=== PATIENT | female | born 1955 | race Caucasian/White ===

== ENCOUNTER → 2018-04-07 12:48 | Outpatient (CLI) | payer MEDICARE, MEDICAID, SELFPAY ==
[2018-04-07 13:32] LABS: Microalbumin,Random Urine 20.3 mg/L (NO RANGE EST.); Microalbumin:Creatinine Ratio 13.3 mg/g CRE (<30 mg/g CRE)
[2018-04-07 13:51] LABS: ALB/GLOB Ratio 1.1 RATIO (0.9-2.4); AST(SGOT) 34 U/L (15-37); Alanine Aminotransfer ALT/SGPT 48 U/L (13-56); Alkaline Phosphatase 53 U/L (45-117); Anion Gap 8 (5-15); BUN 17 mg/dL (7-18); BUN/Creat Ratio 19.9 RATIO (10-20); Calcium,Total 9.6 mg/dL (8.5-10.1); Chloride 104 mmol/L (98-107); Cholesterol 172 mg/dL (200); Creatinine, Serum 0.86 mg/dL (0.55-1.02); EST Glomerular Filtration Rate 71 mL/min (>60); Est Glom Filt Rate - Afr Amer 86 mL/min (>60); Globulin 3.8 g/dL (2.2-4.2); Glucose 132 mg/dL (74-106); High Density Lipoprotein 48 mg/dL; Protein, Total 7.8 g/dL (6.4-8.2); Sodium Level 139 mmol/L (136-145); Triglycerides 208 mg/dL; Very Low Density Lipoprotein 42 mg/dL (5-40)
== END ==
PROVIDERS: Family Provider Family Medicine; PCP Family Medicine; Visit Provider Nurse Practitioner
DX: E11.9 Type 2 diabetes mellitus without complications (principal)
CPT/HCPCS: 36415; 80053; 80061; 82043; 82570; 83036

== ENCOUNTER → 2018-07-07 13:52 | Outpatient (CLI) | payer MEDICARE, MEDICAID, SELFPAY ==
[2018-07-07 15:39] LABS: Hemoglobin A1c 7.1 % (4.2-6.3)
[2018-07-07 15:49] LABS: AST(SGOT) 38 U/L (15-37); Alanine Aminotransfer ALT/SGPT 53 U/L (13-56); Albumin, Serum 3.7 g/dL (3.2-5.0); Alkaline Phosphatase 70 U/L (45-117); Anion Gap 10 (5-15); BUN 18 mg/dL (7-18); BUN/Creat Ratio 19.8 RATIO (10-20); Calcium,Total 9.7 mg/dL (8.5-10.1); Chloride 103 mmol/L (98-107); Creatinine, Serum 0.91 mg/dL (0.55-1.02); EST Glomerular Filtration Rate 67 mL/min (>60); Est Glom Filt Rate - Afr Amer 81 mL/min (>60); Globulin 3.7 g/dL (2.2-4.2); Glucose 136 mg/dL (74-106); Potassium 3.9 mmol/L (3.5-5.1); Protein, Total 7.4 g/dL (6.4-8.2); Sodium Level 141 mmol/L (136-145)
== END ==
PROVIDERS: Family Provider Family Medicine; PCP Family Medicine; Visit Provider Nurse Practitioner
DX: M32.9 Systemic lupus erythematosus, unspecified (principal); E11.9 Type 2 diabetes mellitus without complications
CPT/HCPCS: 36415; 80053; 83036; 84443

== ENCOUNTER → 2018-11-17 14:05 | Outpatient (CLI) | payer MEDICARE, MEDICAID, SELFPAY ==
[2018-11-17 13:16] VITALS: BMI 56.5
[2018-11-17 16:09] LABS: Hemoglobin A1c 8.1 % (4.2-6.3)
[2018-11-17 16:11] LABS: AST(SGOT) 45 U/L (15-37); Alanine Aminotransfer ALT/SGPT 57 U/L (13-56); Albumin, Serum 3.6 g/dL (3.2-5.0); Alkaline Phosphatase 61 U/L (45-117); Anion Gap 10 (5-15); BUN 26 mg/dL (7-18); BUN/Creat Ratio 24.5 RATIO (10-20); Calcium,Total 9.6 mg/dL (8.5-10.1); Chloride 106 mmol/L (98-107); Creatinine, Serum 1.06 mg/dL (0.55-1.02); EST Glomerular Filtration Rate 56 mL/min (>60); Est Glom Filt Rate - Afr Amer 67 mL/min (>60); Globulin 3.7 g/dL (2.2-4.2); Glucose 134 mg/dL (74-106); Potassium 4.1 mmol/L (3.5-5.1); Protein, Total 7.3 g/dL (6.4-8.2); Sodium Level 143 mmol/L (136-145)
== END ==
PROVIDERS: Family Provider Family Medicine; PCP Family Medicine; Referring Provider Nurse Practitioner; Visit Provider Nurse Practitioner
DX: E11.9 Type 2 diabetes mellitus without complications (principal)
CPT/HCPCS: 36415; 80053; 83036

== ENCOUNTER 2019-07-11 10:34 | Day surgery (SDC) | payer MEDICARE, MEDICAID, SELFPAY ==
[2018-11-17 13:16] VITALS: BMI 56.5
--- NOTE | 2019-07-09 17:05 | PCM.HP.BLA ---
History and Physical Date of Admission: 07/11/19 HISTORY AND PHYSICAL ? Laura Morocho 1955 ? REFERRING PHYSICIAN: ??Valentin Arredondo, * ? CHIEF COMPLAINT: ??Consult (Consult Colonoscopy) ? HPI: The patient is a 63 year old female referred for endoscopy. ?Laura notes a history of colon polyps.??Most recent colonoscopy along with EGD done by Dr. Dallas in 2016 under [facility] at [facility]. ?She had polyps which were removed at that time, pathology showed adenomatous and hyperplastic colon polyps and 3 year follow-up was recommended. ?Patient denies any change in bowel habits, weight changes, blood in stools, black tarry stools or abdominal pain.??Denies?family history of colon issues. ? Patient notes a recent history of chest discomfort x a few weeks, states has wondered if this is reflux or fibromyalgia. ?She was evaluated by her family physician earlier today and states was told this pain may be medication-related. ?She has not had a recent EKG. ? ? Past medical history significant for diabetes mellitus, fibromyalgia, hypercholesterolemia, lupus, degenerative disc disease. ?Patient follows with Dr. Arredondo for her chronic medical conditions. ? ? ? PAST?MEDICAL?HISTORY PAST MEDICAL HISTORY Diagnosis Date ? Degenerative disc disease, lumbar ? ? Diabetes (HCC) ? ? Fibromyalgia ? ? GERD (gastroesophageal reflux disease) ? ? Hypercholesterolemia ? ? Insomnia ? ? Lupus (HCC) ? ? Osteoarthritis ? ? ? PAST?SURGICAL?HISTORY PAST SURGICAL HISTORY Procedure Laterality Date ? APPENDECTOMY ? ? ? COLONOSCOP W/ OR W/O BRSH SPEC ? 04/30/2016 ? Colonoscopy ? COLONOSCOPY ? 12/24/10 ? TVA ? COLONOSCOPY ? 02/22/13 ? no polyps ? EGD W/O OR W/BRUSH/WASH ? 04/30/2016 ? EGD ? LIGATE FALLOPIAN TUBE ? ? ? Tubal ligation ? PAST SURGICAL HISTORY OF ? ? ? colon polypectomy ? PAST SURGICAL HISTORY OF ? ? ? hernia repair ? REMOVAL ADENOIDS,PRIMARY,<12 Y/O ? ? ? Adenoidectomy ? REMOVAL GALLBLADDER ? ? ? Cholecystectomy ? REMOVAL OF TONSILS,<12 Y/O ? ? ? Tonsillectomy ? TOTAL ABDOM HYSTERECTOMY ? ? ? Hysterectomy, JESSICA supracervical ? ? CURRENT?MEDICATIONS ? Current Outpatient Medications: triamterene-hydrochlorothiazide (MAXZIDE-25) 37.5-25 mg per tablet TAKE 1 TABLET DAILY lisinopril (ZESTRIL, PRINIVIL) 5 mg tablet Take 5 mg by mouth once daily. PRAVASTATIN SODIUM (PRAVASTATIN ORAL) Take ?by mouth. aspirin, enteric coated (ASPIRIN LOW DOSE) 81 mg EC tablet Take 81 mg by mouth once daily. Cholecalciferol, Vitamin D3, (VITAMIN D) 1,000 unit cap Take 1,000 Units by mouth once daily. baclofen (LIORESAL) 10 mg tablet ? Omeprazole Magnesium 20 mg tablet Take 20 mg by mouth twice daily. Diclofenac Sodium (VOLTAREN) 1 % gel Apply 1 g to affected area twice daily. hydroxychloroquine (PLAQUENIL) 200 mg tablet Take ?by mouth twice daily. zolpidem (AMBIEN) 10 mg tab Take ?by mouth at bedtime as needed. OMEGA-3 FATTY ACIDS/FISH OIL (OMEGA 3 FISH OIL ORAL) Take ?by mouth. fenofibrate nanocrystallized (TRICOR) 145 mg tablet Take 145 mg by mouth once daily. NEFAZODONE 200 MG TAB take one twice a day MULTIVITAMIN TAB Take one(1) tablet daily. oxymetazoline (AFRIN, OXYMETAZOLINE,) 0.05 % nasal spray Use 2 Sprays in the nose twice daily. guaiFENesin (MUCINEX) 600 mg 12 hr tablet Take 2 tablets by mouth twice daily. benzonatate (TESSALON PERLE) 100 mg capsule Take 1 capsule by mouth three times daily as needed. albuterol HFA (PROVENTIL HFA, VENTOLIN HFA) 90 mcg/actuation inhaler Inhale 2 Puffs as instructed every 4 hours as needed. fluticasone (FLOVENT HFA) 110 mcg/actuation inhaler Inhale 2 Puffs as instructed twice daily. glimepiride (AMARYL) 1 mg tablet Take 1 mg by mouth daily with breakfast. Taking 1.5 tablets a day sitaGLIPtin (JANUVIA) 100 mg tablet Take 100 mg by mouth once daily. hydrocortisone (ANUSOL-HC) 2.5 % rectal cream by RECTAL route twice daily. celecoxib (CELEBREX) 200 mg capsule Take 200 mg by mouth as needed. metFORMIN 1,000 mg tablet Take 1,000 mg by mouth twice daily with meals. triamterene-hydrochlorothiazide 37.5-25 mg per capsule Take 1 capsule by mouth once daily. ? No current facility-administered medications for this visit.? ? ALLERGIES:?Ciprofloxacin; Januvia [Sitagliptin]; Jardiance [Empagliflozin]; Macrodantin [Nitrofurantoin]; Ultram [Tramadol Hcl] ? PERSONAL HISTORY:? 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 control/protection: Surgical ?Comment: pt has had JESSICA ??Other Topics ?Concerns: ?Not on file ??Social History Narrative ?Not on file ? FAMILY HISTORY:? FAMILY?HISTORY FAMILY HISTORY Problem Relation Age of Onset ? Heart Mother ? ? Diabetes Mother ? ? COPD Mother ? ? other (lupus) Mother ? ? other (rheumatoid) Mother ? ? Heart Sister ?NE at age 41 ? Diabetes Sister ? ? Aneurysm Sister ?Abdominal ? other (aortic stenosis) Sister ? ? other (spesis) Sister ? ? REVIEW OF SYMPTOMS: ??The review of systems data was entered by the nurse and reviewed by me ? Nursing Notes: Carson Spivey LPN ?05/04/2019 ?1:09 PM ?Signed REVIEW OF SYSTEMS: ?General:???The patient NOTES fatigue, denies weight loss, denies weight gain, NOTES feeling hot, and denies feelings of cold. ?Eyes: ?The patient denies glaucoma, denies eye injury/surgery, wears glasses or contacts. ?Ear/Nose/Throat: ?The patient NOTES allergies, denies hayfever, denies ear infections, and denies bloody noses. ?Cardiovascular: ?The patient NOTES chest pain, denies heart disease, NOTES high blood pressure,denies cardiac stent, denies prior heart attack, denies irregular heart beat, NOTES high cholesterol, ?denies poor circulation, denies heart failure, other cardiac issues, denies claudication, denies cold feet, denies peripheral arterial stent. ?Respiratory: ?The patient denies tuberculosis, denies pneumonia, denies frequent cough, denies pulmonary embolism, NOTES shortness of breath, and denies coughing up blood. ?Gastrointestinal: ?The patient denies difficulty swallowing, NOTES acid reflux, NOTES ulcers, denies vomiting, denies jaundice/hepatitis, NOTES gallbladder problems, denies black or tarry stools, NOTES hemorrhoids, denies bleeding from rectum, denies diverticulitis, denies constipation, denies diarrhea, denies loss of stool control, and NOTES hernias. ?Kidney/Bladder: ?The patient denies kidney stones, denies urine infections, and denies bloody urine. ?Skin: ?The patient denies a history of skin cancer, denies bleeding/changing moles, and denies a history of skin rash. ?Neurologic: ?The patient denies a history of epilepsy/convulsions, denies headaches, denies head/spinal injuries, and denies stroke/TIA. ?Psychiatric: ?The patient denies psychiatric medications, denies depression, and denies voices, denies substance abuse. ?Endocrine: ?The patient denies thyroid disorders, NOTES diabetes, and denies hormonal problems. ?Hematologic: ?The patient NOTES a history of bruising, denies bleeding, and denies anemia, denies blood clots. ?Infections: ?The patient denies a history of measles and mumps, denies rheumatic fever, and denies sexually transmitted diseases. ?Musculoskeletal: ?The patient NOTES back pain/injury, NOTES back problems, NOTES sciatica, NOTES knee/foot trouble, NOTES arthritis, or denies gout. ? ? When was patient's last Mammogram screening? N/A ? ?Last Colonoscopy: ?05/03 ? ? Carson Spivey LPN? I have confirmed and edited as necessary, the PFSH and ROS obtained by others. ? ? PHYSICAL EXAMINATION: ? General: ?The patient is 63 year old female, well nourished, well hydrated in no acute distress. ?The patient is oriented to time, place, and person. ? VITALS:?Blood pressure 146/68, pulse 70, temperature 36.4 ?C (97.6 ?F), height 165.1 cm (5' 5), weight (!) 141.3 kg (311 lb 9.6 oz), last menstrual period 11/09/2005, SpO2 96 %.?Body mass index is 51.85 kg/m?.? ? HEENT: ?Normal cephalic, ataumatic, pupils are equally round, sclera are anicteric, mucous membranes are moist, oropharynx is clear. ?Neck has no masses, asymmetry or lymphadenopathy. ? ? Respiratory: ?Clear to auscultation and percussion. ?Normal respiratory excursion and pattern. ? Cardiac: ?Examination is regular rate and rhythm. ?Normal S1/S2 ? Abdominal exam: ?Soft, nontender, ?with no palpable masses. ?No hepatosplenomegaly. ?No palpable hernias. ? Extremities: ?no clubbing, cyanosis or edema. ?No adenopathy. ? LABORATORY VALUES: As Noted ? RADIOLOGIC STUDIES: ?As Noted ? ? Assessment ? IMPRESSION:?encounter for screening colonoscopy. ?Heartburn and complaints of recent chest pain-EKG done in office showed normal sinus rhythm ? PLAN: ?I have reviewed my findings with Dr. Spann, who also independently evaluated the patient and participated in development of the following plan.???Will plan for upper and lower?endoscopy. ??We discussed the risks and benefits of the planned endoscopy. ?I have informed the patient that complications can occur including failure to complete the endoscopy and perforation. ?The patient had the opportunity to ask questions concerning the planned endoscopy. ?My staff has also explained the procedure to the patient in understandable terms and has given the patient printed material concerning the procedure. ?The patient freely consents to surgery. ? I plan to use?golytely?bowel preparation ? Patient instructed to contact PCP for instructions regarding diabetic medication, which may require adjustment during bowel preparation and/or day of procedure ? ? We will plan for Monitored Anesthetic Care. ? ? Diagnoses:?(Z12.11) Encounter for screening for malignant neoplasm of colon ?(primary encounter diagnosis) (Z01.818) Preop testing (Z87.898) History of chest pain (Z86.010) History of colonic polyps (K21.9) Gastroesophageal reflux disease, esophagitis presence not specified ? ? Isaura Atkinson PA-C
[2019-07-11] VITALS (7 sets, daily range): BP systolic 113–169; BP diastolic 54–78; PULSE 64–69; RESP 16; TEMP 36.1–36.7; O2SAT 93–96; BMI 51.0
--- NOTE | 2019-07-11 | GASB_PTH ---
PATIENT: VILMA DIAL I LOC: EN U#:[id number] AGE/SX: 63/F ROOM: RE07/11/[address]: Dr. Nikunj Spann MD : 1955 BED: DIS: 07/11/2019 SPEC #: [id number] RECD: 07/11/19 14:22 STATUS: YONATAN DORA #: [id number] PIPPA: 07/11/19 00:[address]: Nikunj Spann DEPT: SURGICAL PATHOLOGY RECD BY: Chase Young ENTERED: 07/11/19 14:22 SP TYPE: Gastric Bx OTHR DR: Dr. Valentin Arredondo MD Tissues: A - Gastric mucous membrane B - Gastric mucous membrane C - Esophagus, NOS Procedures: Surgery Specimen Level IV HEADER OPERATION: [place]OP DIAGNOSIS: Epigastric pain; history polyps TISSUE SUBMITTED: A - Antral biopsy for H. pylori and pathology, B - GE junction biopsy, C - Mid esophageal biopsy MICROSCOPIC DIAGNOSIS A. Gastric antrum, biopsy: Mild chronic gastritis. See comment. B. Gastroesophageal junction, biopsy: Mild chronic inflammation. No evidence of goblet cell metaplasia. C. Mid esophagus, biopsy: Fragment of benign squamous mucosa. No evidence of inflammation. AM:augustine 07/12/19 COMMENT A. The results of immunohistochemistry for Helicobacter pylori will be reported separately ([id number]). B. Alcian blue/PAS stain with matched control supports the above diagnosis. MICROSCOPIC DESCRIPTION Slides are reviewed. GROSS DESCRIPTION A - Received in fixative is one container labeled with the patient's name and designated antrum biopsy. The specimen consists of one irregular fragment of light griffin soft tissue that measures 0.3 x 0.3 x 0.1 cm. The specimen is totally submitted in one cassette. B - Received in fixative is one container labeled with the patient's name and designated GE junction biopsy. The specimen consists of one irregular fragment of light griffin soft tissue that measures 0.3 x 0.3 x 0.1 cm. The specimen is totally submitted in one cassette. C - Received in fixative is one container labeled with the patient's name and designated mid esophageal biopsy. The specimen consists of one irregular fragment of light griffin soft tissue that measures 0.4 x 0.3 x 0.1 cm. The specimen is totally submitted in one cassette. / SJ:rg 07/11/19 TC:3 CPT: 23990 x3, 94150
[2019-07-11] MEDS: Lactated Ringers 1,000 ML 100 ML IV (11:40)
--- NOTE | 2019-07-11 12:00 | IMM_PTH ---
PATIENT: VILMA DIAL I LOC: EN U#:[id number] AGE/SX: 63/F ROOM: RE07/11/[address]: Dr. Nikunj Spann MD : 1955 BED: DIS: 07/11/2019 SPEC #: [id number] RECD: 07/11/19 15:00 STATUS: YONATAN RELucien #: [id number] PIPPA: 07/11/19 12:[address]: Nikunj Spann DEPT: IMMUNOHISTOCHEMISTRY RECD BY: Mary Villatoro ENTERED: 07/11/19 15:00 SP TYPE: IMMUNO OTHR DR: Dr. Valentin Arredondo MD Tissues: A - Stomach, NOS Procedures: H Pylori (initial) PHYSICIAN & INSTITUTION [place] [id number] SPECIMEN INFORMATION: Tissue Source: A - Antral biopsy Clinical Info: Epigastric pain, history polyps Specimen Number: [id number] CPT code: 38222 METHODOLOGY: Deparaffinized sections of prefer/formalin-fixed tissue or PAP/DQ stained slides are incubated with monoclonal/polyclonal antibodies/oligonucleotide probes. Localization is made via biotin free immunoperoxidase method. Appropriate controls are performed and reacted as expected. Results on target cell population are indicated in the following table: RESULTS: ANTIBODY / CLONE RESULT Block A H Pylori (polyclonal) negative These tests were developed and their performance characteristics determined by [facility]. They may not have been cleared or approved by the U.S. Food and Drug Administration. The FDA has determined that such clearance or approval is not necessary. INTERPRETATION: A. Antral biopsy: Negative for Helicobacter pylori organisms. AM:augustine 07/12/19
--- NOTE | 2019-07-11 13:41 | OP.ENDO_ITS ---
07/11/2019 Valentin Arredondo Re : Upper GI endoscopy procedure for Laura Morocho Dear Arnulfo This procedure was performed on Thursday, July 11, 2019. My impressions and recommendations are as follows: Impressions : - Normal examined jejunum. - Normal examined duodenum. - Normal stomach. Biopsied. - Normal gastroesophageal junction. - Non-severe reflux esophagitis. Biopsied. - Normal middle third of esophagus. Recommendations : - Discharge patient to home. - Resume previous diet. - Continue present medications. - Return to physician assistant manager pt in 1 week. My findings are described in the full procedure note, which is enclosed. If I can be of further assistance, please feel free to contact me at Doctor phone number(s): , Work: . Sincerely, Nikunj Spann MD 07/11/2019 1:41:10 PM This report has been signed electronically.
--- NOTE | 2019-07-11 13:46 | OP.ENDO_ITS ---
07/11/2019 Valentin Arredondo Re : Colonoscopy procedure for Laura Morocho Dear Arnulfo This procedure was performed on Thursday, July 11, 2019. My impressions and recommendations are as follows: Impressions : - The entire examined colon is normal on direct and retroflexion views. - Diverticulosis in the sigmoid colon. - No specimens collected. Recommendations : - Discharge patient to home. - Resume previous diet. - Continue present medications. - Repeat colonoscopy in 10 years for screening purposes. - Return to physician bilingual legal assistant in 1 week. My findings are described in the full procedure note, which is enclosed. If I can be of further assistance, please feel free to contact me at Doctor phone number(s): , Work: . Sincerely, Nikunj Spann MD 07/11/2019 1:45:55 PM This report has been signed electronically.
== END 2019-07-11 14:33 | disposition home or self-care (01) ==
LOC: EN 10:34 → AC 10:36
PROVIDERS: Family Provider Family Medicine; PCP Family Medicine; Referring Provider Family Medicine; Visit Provider Surgery
PROC: 0DJD8ZZ Inspection of Lower Intestinal Tract, Via Natural or Artificial Opening Endoscopic (ICD-10-PCS; CPT 45378; principal; 2019-07-11 11:55)
DX: Z12.11 Encounter for screening for malignant neoplasm of colon (principal); Z86.010 Personal history of colon polyps; K57.30 Diverticulosis of large intestine without perforation or abscess without bleeding; K21.0 Gastro-esophageal reflux disease with esophagitis; M32.9 Systemic lupus erythematosus, unspecified; K58.9 Irritable bowel syndrome, unspecified; E11.9 Type 2 diabetes mellitus without complications; E78.00 Pure hypercholesterolemia, unspecified; M79.7 Fibromyalgia; G47.30 Sleep apnea, unspecified; F32.9 Major depressive disorder, single episode, unspecified; F41.9 Anxiety disorder, unspecified; M51.36 Other intervertebral disc degeneration, lumbar region; G47.00 Insomnia, unspecified; Z79.82 Long term (current) use of aspirin; Z79.84 Long term (current) use of oral hypoglycemic drugs; Z79.51 Long term (current) use of inhaled steroids; Z79.899 Other long term (current) drug therapy; Z88.1 Allergy status to other antibiotic agents; Z78.0 Asymptomatic menopausal state; Z86.718 Personal history of other venous thrombosis and embolism
CPT/HCPCS: 43239; G0105; 88305; 88342; J7120; J2405

== ENCOUNTER → 2021-03-21 12:15 | Outpatient (CLI) | payer MEDICARE, SELFPAY ==
[2021-01-29 15:42] VITALS: BMI 52.4
--- NOTE | 2021-03-21 12:20 | BD_ITS ---
STUDY: DUAL ENERGY X-RAY ABSORPTIOMETRY / DXA REASON FOR EXAM: Female, 65 years old. Z780. The patient is postmenopausal. TECHNIQUE: Bone Mineral Density (BMD) measurements of lumbar spine and bilateral hips were obtained. COMPARISON: None. FINDINGS: Lumbar Spine (L1-L4): g/cm2 (1.308) / T-score (1.2) / Z-score (2.7) Findings are suggestive of normal bone density with a low fracture risk. Left Femur Total: g/cm2 (1.139) / T-score (1.0) / Z-score (2.3) Left Femoral Neck: g/cm2 (1.120) / T-score (0.6) / Z-score (2.1) Right Femur Total: g/cm2 (1.129) / T-score (1.0) / Z-score (2.2) Right Femoral Neck: g/cm2 (1.134) / T-score (0.7) / Z-score (2.2) BD/Dexa Bone Density Study IMPRESSION: The patient is considered normal as outlined below according to World [employer] Organization (WHO) criteria with a low fracture risk. Reference Information: The T-score is the number of standard deviations above or below the standard which is normal for young adults at their peak bone mineral density. The World Health Organization (WHO) interprets the T-scores as follows: Above -1 Normal bone density Between -1 and -2.5 Osteopenia Equal to / or below -2.5 Osteoporosis As a practical clinical guideline, osteopenia may be graded as follows: Mild -1 through -1.5 Moderate -1.6 through -2.0 Severe -2.1 through -2.4 The Z-score is the number of standard deviations above or below age-matched controls. A Z-score of less than -1.5 would be considered abnormal. References: 1. NIH Osteoporosis and Related Bone Diseases www osteo.org 2. International Society for Clinical Densitometry www iscd.org 3. National Osteoporosis Foundation www nof.org Electronically Signed: Zeyad Neri MD at 10:55 EDT , Service support ,
== END ==
PROVIDERS: PCP Family Medicine; Referring Provider Family Medicine; Visit Provider Family Medicine
DX: Z78.0 Asymptomatic menopausal state (principal)
CPT/HCPCS: 77080

== ENCOUNTER → 2021-04-09 13:43 | Outpatient (CLI) | payer MEDICARE, SELFPAY ==
[2021-01-29 15:42] VITALS: BMI 52.4
[2021-04-09 14:56] LABS: Erythrocyte Sedimentation Rate 18 mm/hr (0-30)
[2021-04-09 14:57] LABS: Absolute Lymphocyte Count 2.15 X10^3/uL (0.83-4.51); Absolute Neutrophil Count 4.5 X10^3/uL (2.0-7.7); Basophil# 0.05 X10^3/uL; Basophil% 0.7 % (0-1); Eosinophil# 0.25 X10^3/uL; Eosinophils% 3.3 % (0-5); Hematocrit 44.8 % (37-47); Hemoglobin 14.2 g/dL (12.0-15.0); Lymphocyte # 2.15 X10^3/ul (0.83-4.51); Lymphocyte % 28.5 % (19-41); Mean Corp Hgb Conc 31.7 g/dL (32-36); Mean Corpuscular Hgb 28.2 pg (27.0-32.0); Mean Corpuscular Volume 88.9 fL (81-99); Mean Platelet Vol. 10.8 fl (6.2-12.0); NRBC Flagged by Analyzer 0 % (0-5); Neutrophil # 4.45 X10^3/uL (2.7-7.7); Platelet Count 271 K/mm3 (150-450); RBC Distribution Width CV 14.2 % (11.6-14.6); RBC Distribution Width SD 45.8 fl (35.1-43.9); Red Blood Count 5.04 M/mm3 (4.2-5.4); White Blood Count 7.5 K/mm3 (4.4-11.0)
[2021-04-09 15:09] LABS: AST(SGOT) 37 U/L (15-37); Alanine Aminotransfer ALT/SGPT 53 U/L (13-56); BUN 33 mg/dL (7-18); CRP 3.73 mg/L (0.0-3.0); Creatinine, Serum 0.95 mg/dL (0.55-1.02); EST Glomerular Filtration Rate 63 mL/min (>60); Est Glom Filt Rate - Afr Amer 76 mL/min (>60)
[2021-04-11 14:21] LABS: Complement C3 180 mg/dL (82-167)
[2021-04-11 19:45] LABS: Anti-dsDNA Ab <1 IU/mL (0-9)
== END ==
PROVIDERS: PCP Family Medicine; Referring Provider Internal Medicine; Visit Provider Internal Medicine
DX: M32.19 Other organ or system involvement in systemic lupus erythematosus (principal)
CPT/HCPCS: 36415; 82565; 84450; 84460; 84520; 85025; 85652; 86140; 86160; 86225

== ENCOUNTER 2021-06-24 18:06 | Emergency (ER) | payer MEDICARE, SELFPAY ==
[2021-06-24 18:08] VITALS: BP 177/75; PULSE 87; RESP 22; TEMP 36.6; O2SAT 93; BMI 51.7
--- NOTE | 2021-06-24 19:22 | EX.ED.DYSGE1 ---
HPI History of Present Illness Chief Complaint: General Illness Informant: patient Narrative Narrative: 65-year-old female presents the emergency room with COVID-19. Patient got sick 14 June. She tested + 18 June. Patient is concerned because she is not getting any better. She notes continued diarrhea cough fever fatigue. She notes a history of diabetes lupus. She does not take daily steroids. She has did not get any monoclonal antibody infusion. [facility] Medical History (Updated 06/24/21 @ 19:[address] Colton Fry, DO) Anxiety and depression Arthritis Breast lump Diabetes Diabetes type 2, controlled Fibromyalgia Gallstones GERD (gastroesophageal reflux disease) High cholesterol High triglycerides IBS (irritable bowel syndrome) Lupus Obesity Osteoarthritis Pancreatitis Pneumonia Polycystic ovary Seasonal allergies Stomach ulcer Home Medications fenofibrate nanocrystallized 145 mg PO DAILY 03/20/14 [History Last Taken Unknown] hydroxychloroquine 200 mg PO BID 03/20/14 [History Last Taken Unknown] zolpidem 10 mg PO QHS PRN PRN 03/20/14 [History Last Taken Unknown] aspirin 81 mg PO DAILY 04/23/16 [History Last Taken Unknown] baclofen 10 mg PO TID PRN 04/23/16 [History Last Taken Unknown] celecoxib 200 mg capsule 200 mg PO QDAY PRN 11/10/17 [History Last Taken Unknown] omeprazole magnesium 20 mg tablet,delayed release 20 mg PO BID 11/10/17 [History Last Taken Unknown] pravastatin 40 mg tablet 40 mg PO QHS 11/10/17 [History Last Taken Unknown] metformin 500 mg tablet,extended release 24 hr 1,000 mg PO BID #360 tab 12/06/18 [Rx Last Taken Unknown] cholecalciferol (vitamin D3) 2,000 unit PO DAILY 07/07/19 [History Last Taken Unknown] fish oil-dha-epa 1 ea PO DAILY 07/07/19 [History Last Taken Unknown] hydrochlorothiazide 25 mg PO DAILY 07/07/19 [History Last Taken Unknown] multivitamin with minerals 1 ea PO DAILY 07/07/19 [History Last Taken Unknown] nefazodone 200 mg PO BID 07/07/19 [History Last Taken Unknown] diclofenac sodium 1 % topical gel 2 gm TOPICAL BID gm 01/29/21 [History Last Taken Unknown] glimepiride 2 mg tablet 2 mg PO BID tablet 04/13/21 [History Last Taken Unknown] losartan 25 mg tablet 25 mg PO DAILY #30 tab 03/13/21 [Rx Last Taken Unknown] dapagliflozin [Farxiga] 10 mg PO DAILY 06/24/21 [History Last Taken Unknown] dexamethasone 6 mg PO DAILY #5 tab 06/24/21 [Rx Last Taken Unknown] ondansetron 4 mg PO Q6H PRN PRN #15 tab 06/24/21 [Rx Last Taken Unknown] Allergy/AdvReac Type Severity Reaction Status Date / Time nitrofurantoin Allergy Unknown Verified 07/11/19 11:02 macrocrystalline [From Macrodantin] tramadol HCl [From Ultram] Allergy Swelling Verified 07/11/19 11:02 lisinopril AdvReac Intermediate muscle Verified 01/29/21 15:25 spasms semaglutide [From Ozempic] AdvReac Intermediate constipated Verified 01/29/21 15:26 ciprofloxacin [From Cipro] AdvReac RED URINE Verified 07/11/19 11:02 ciprofloxacin HCl AdvReac RED URINE Verified 07/11/19 11:02 [From Cipro] empagliflozin AdvReac stomach Verified 07/11/19 11:02 [From Jardiance] pain glimepiride AdvReac stomach Verified 07/11/19 11:02 pain Family History Mother Arthritis Diabetes Heart disease Hypertension High cholesterol Thyroid disorder Lupus Father Liver disease Other Alcohol abuse Anemia Anxiety Asthma Autoimmune disease CVA (cerebral vascular accident) Colon cancer Depression Melanoma Mental disorder Myocardial infarction Psychiatric care Respiratory disease Skin cancer angina ulcer disease Surgical History H/O breast biopsy H/O hernia repair H/O: hysterectomy Hx of appendectomy Hx of cholecystectomy Hx of tonsillectomy Social History Smoking Status: Never smoker second hand exposure: No alcohol intake: never substance use type: does not use ROS ROS ED Constitutional Constitutional ED: Reports chills, fever(s) and sweats; Denies weight loss Eyes Eyes: Denies change in vision or diplopia ENT ENT ED: Reports rhinorrhea and sore throat; Denies ear pain Cardiovascular Cardiovascular: Denies chest pain, orthopnea, palpitations or racing heartbeat Respiratory/Chest Respiratory/Chest: Reports cough and dyspnea; Denies orthopnea Gastrointestinal Gastrointestinal: Reports diarrhea and nausea; Denies abdominal pain or vomiting Genitourinary Genitourinary ED: Denies dysuria, hematuria or urinary frequency Musculoskeletal Musculoskeletal: Denies arthralgias or myalgias Integumentary Denies abscess or rash Neurologic Neurologic: Reports headache(s); Denies weakness Psychiatric Psychiatric: Denies anxiety, depression, suicidal ideation or suicidal thoughts Endocrine Endocrinology: Denies polydipsia, polyphagia or polyuria Allergic/Immunologic Allergic/Immunologic ED: Denies mouth swelling, tongue swelling or urticaria EXAM Physical Exam Const Vital Signs: 06/24/21 18:08 06/24/21 18:49 Temperature 97.8 F Temperature Source Temporal Pulse Rate 87 Respiratory Rate 22 H Respiratory Effort Normal Non-Labored Blood Pressure 177/75 H Blood Pressure Mean 109 Pulse Ox 93 Oxygen Delivery Method Room Air Positive well nourished, well developed and obese General Appearance ED: well developed Nutritional Appearance: obese HEENT Reports normocephalic, head/scalp atraumatic, TM's clear and moist mucous membranes Tympanic Membrane ED: Yes TM's clear Eyes PERRL and EOMs intact bilaterally Neck no lymphadenopathy, supple and no JVD Resp normal respiratory effort and clear to auscultation bilaterally Cardio regular rate, regular rhythm and no murmurs GI normal to inspection, nondistended, normoactive bowel sounds and non-tender Palpation: soft Back/Spine no CVA tenderness and normal ROM Extremity normal to inspection General Extremety ED: Negative for edema General Extremity: Negative for edema Neuro oriented x3 and CN's II-XII intact bilaterally Sensorium / Orientation: alert Motor Exam: strength 5/5 throughout Psych mental status grossly normal Mood & Affect: Negative for depressed or tearful Skin no rashes or lesions noted and no wounds MDM MDM MDM Narrative Medical decision making narrative: I discussed with the patient that COVID-19 is a prolonged illness. I can write for some Zofran. She may benefit from a brief course of some dexamethasone. At this point she is not requiring any supplemental oxygen. Discharge Plan Triage Chief Complaint: General Illness ED Provider: Colton Fry Dx/Rx/DC Orders Clinical Impression: COVID-19 Instructions: Coronavirus Disease 2019 (COVID-19): Caring for Yourself or Others Prescriptions: New dexamethasone 6 MG tablet 6 mg PO DAILY Qty: 5 RF: 0 ondansetron [ondansetron] 4 MG tablet 4 mg PO Q6H PRN PRN (Reason: Nausea) Qty: 15 RF: 0 No Action pravastatin [Pravachol] 40 mg tablet 40 mg PO QHS RF: 0 omeprazole magnesium [Prilosec OTC] 20 mg tablet,delayed release (DR/EC) 20 mg PO BID RF: 0 celecoxib [Celebrex] 200 mg capsule 200 mg PO QDAY PRN (Reason: Pain) RF: 0 diclofenac sodium 1 % gel 2 gm TOPICAL BID RF: 0 glimepiride 2 mg tablet 2 mg PO BID RF: 0 hydroxychloroquine 200 MG tablet 200 mg PO BID RF: 0 zolpidem 10 MG tablet 10 mg PO QHS PRN PRN (Reason: Sleep) RF: 0 fenofibrate nanocrystallized 145 MG tablet 145 mg PO DAILY RF: 0 baclofen 10 MG tablet 10 mg PO TID PRN (Reason: Spasms) RF: 0 aspirin 81 MG tablet,chewable 81 mg PO DAILY RF: 0 hydrochlorothiazide 25 MG tablet 25 mg PO DAILY RF: 0 nefazodone 50 MG tablet 200 mg PO BID RF: 0 multivitamin with minerals 1 EACH tablet 1 ea PO DAILY RF: 0 fish oil-dha-epa 1 EACH capsule 1 ea PO DAILY RF: 0 cholecalciferol (vitamin D3) 2,000 UNIT tablet,chewable 2,000 unit PO DAILY RF: 0 Farxiga 10 mg Tablet 10 mg PO DAILY RF: 0 metformin [Glucophage XR] 500 mg tablet extended release 24 hr 1,000 mg PO BID Qty: 360 RF: 3 losartan 25 mg tablet 25 mg PO DAILY Qty: 30 RF: 3 Primary Care Provider: Valentin Arredondo Referrals: Valentin Arredondo MD [Primary Care Provider] - As Needed Disposition Disposition: Home, Self Care
[2021-06-24 19:55] VITALS: BP 133/59; PULSE 65; RESP 20; O2SAT 94
== END 2021-06-24 19:56 | disposition home or self-care (01) ==
PROVIDERS: Emergency Provider Emergency Medicine; PCP Family Medicine
DX: U07.1 COVID-19 (principal); E66.9 Obesity, unspecified; F32.9 Major depressive disorder, single episode, unspecified; F41.9 Anxiety disorder, unspecified; E11.9 Type 2 diabetes mellitus without complications; K21.9 Gastro-esophageal reflux disease without esophagitis; E78.00 Pure hypercholesterolemia, unspecified; M79.7 Fibromyalgia; K58.9 Irritable bowel syndrome, unspecified; M32.9 Systemic lupus erythematosus, unspecified
CPT/HCPCS: 99282

== ENCOUNTER → 2021-07-18 10:32 | Outpatient (CLI) | payer MEDICARE, SELFPAY ==
[2021-07-18 12:54] LABS: Vitamin D,25 Hydroxy 37.5 ng/mL
[2021-07-18 13:02] LABS: Hemoglobin A1c 7.2 % (3.8-5.6)
[2021-07-18 13:03] LABS: ALB/GLOB Ratio 0.8 RATIO (0.9-2.4); AST(SGOT) 23 U/L (15-37); Alanine Aminotransfer ALT/SGPT 35 U/L (13-56); Albumin, Serum 3.2 g/dL (3.2-5.0); Alkaline Phosphatase 52 U/L (45-117); Anion Gap 8 (5-15); BUN 23 mg/dL (7-18); BUN/Creat Ratio 26.5 RATIO (10-20); Calcium,Total 9.3 mg/dL (8.5-10.1); Chloride 104 mmol/L (98-107); Cholesterol 158 mg/dL (200); Creatinine, Serum 0.87 mg/dL (0.55-1.02); EST Glomerular Filtration Rate 70 mL/min (>60); Est Glom Filt Rate - Afr Amer 84 mL/min (>60); Globulin 4.1 g/dL (2.2-4.2); Glucose 182 mg/dL (74-106); High Density Lipoprotein 46 mg/dL; Protein, Total 7.3 g/dL (6.4-8.2); Sodium Level 140 mmol/L (136-145); Thyroid Stim Hormone (TSH) 1.77 uIU/mL (0.358-3.74); Triglycerides 165 mg/dL; Very Low Density Lipoprotein 33 mg/dL (5-40)
[2021-07-18 13:08] LABS: Microalbumin,Random Urine 24.6 mg/L (NO RANGE EST.)
== END ==
PROVIDERS: PCP Family Medicine; Referring Provider Internal Medicine Endocrinology, Diabetes & Metabolism; Visit Provider Internal Medicine Endocrinology, Diabetes & Metabolism
DX: E55.9 Vitamin D deficiency, unspecified (principal); E11.65 Type 2 diabetes mellitus with hyperglycemia; E78.2 Mixed hyperlipidemia
CPT/HCPCS: 36415; 80053; 80061; 82043; 82306; 82570; 83036; 84443

== ENCOUNTER → 2021-08-06 10:18 | Outpatient (CLI) | payer MEDICARE, SELFPAY ==
[2021-08-06 12:36] LABS: Erythrocyte Sedimentation Rate 12 mm/hr (0-30)
[2021-08-06 12:37] LABS: Absolute Neutrophil Count 3.3 X10^3/uL (2.0-7.7); Basophil# 0.05 X10^3/uL; Basophil% 0.8 % (0-1); Eosinophil# 0.18 X10^3/uL; Hematocrit 44.3 % (37-47); Hemoglobin 13.5 g/dL (12.0-15.0); Lymphocyte % 31.9 % (19-41); Mean Corp Hgb Conc 30.5 g/dL (32-36); Mean Corpuscular Hgb 28.2 pg (27.0-32.0); Mean Corpuscular Volume 92.7 fL (81-99); Mean Platelet Vol. 11.2 fl (6.2-12.0); Monocyte% 8.4 % (0-10); NRBC Flagged by Analyzer 0 % (0-5); Neutrophil % 55.4 % (47-70); Platelet Count 250 K/mm3 (150-450); RBC Distribution Width CV 14.6 % (11.6-14.6); RBC Distribution Width SD 50.3 fl (35.1-43.9); Red Blood Count 4.78 M/mm3 (4.2-5.4)
[2021-08-06 12:48] LABS: AST(SGOT) 22 U/L (15-37); Alanine Aminotransfer ALT/SGPT 41 U/L (13-56); BUN 24 mg/dL (7-18); CRP 3.23 mg/L (0.0-3.0); Creatinine, Serum 0.91 mg/dL (0.55-1.02); EST Glomerular Filtration Rate 66 mL/min (>60); Est Glom Filt Rate - Afr Amer 79 mL/min (>60)
[2021-08-07 13:17] LABS: Anti-dsDNA Ab <1 IU/mL (0-9)
[2021-08-07 16:06] LABS: Complement C3 191 mg/dL (82-167)
== END ==
PROVIDERS: PCP Family Medicine; Referring Provider Internal Medicine; Visit Provider Internal Medicine
DX: M32.19 Other organ or system involvement in systemic lupus erythematosus (principal)
CPT/HCPCS: 36415; 82565; 84450; 84460; 84520; 85025; 85652; 86140; 86160; 86225

== ENCOUNTER → 2022-03-27 | Outpatient (CLI) | payer MEDICARE, SELFPAY ==
--- NOTE | 2022-03-27 11:54 | STRESSREP ---
Stress Test Report Pharmacologic myocardial perfusion stress test. 66-year-old lady with a history of chest pain. Stress protocol: Resting EKG demonstrates normal sinus rhythm with a rate of 71 bpm normal intervals are noted resting blood pressure is 148/78 mmHg. 0.4 mg of regadenoson was infused per usual protocol followed by rapid intravenous saline flush injection continuous EKG monitoring was performed. Patient maintained sinus rhythm throughout the recording. The maximum heart rate attained was 103 bpm which was 66% of max impacted heart rate the maximum workload was 1 metabolic equivalent. At rest there were no ST or T wave changes noted to suggest abnormal flow reserve and at peak infusion nonspecific ST changes were noted with did not meet the criteria for ischemia. No clinical angina was noted. The final blood pressure was 140/80 mmHg. Myocardial perfusion protocol. 14.8 mCi of technetium 99m sestamibi was injected at rest. 0.4 mg of regadenoson was infused per usual protocol. At peak infusion 44.5 mCi of technetium 99m sestamibi was injected stress images were obtained stress and rest images were reconstructed and compared in the short axis vertical long and horizontal long axis. Gated images were also obtained. Perfusion SPECT analysis: Review of the stress images demonstrate mildly reduced perfusion noted in the mid anterior wall with improvement on the resting images the above is possibly suggestive of mild mid anterior ischemia. No obvious infarct is noted. Gated SPECT analysis: The gated ejection fraction is noted to be 66%. Conclusion: Mildly abnormal pharmacologic stress test with evidence of mild anterior ischemia. Preserved ejection fraction.
== END | disposition home or self-care (01) ==
PROVIDERS: PCP Family Medicine; Visit Provider Family Medicine
DX: R07.9 Chest pain, unspecified (principal); E11.42 Type 2 diabetes mellitus with diabetic polyneuropathy; I10 Essential (primary) hypertension; Z82.49 Family history of ischemic heart disease and other diseases of the circulatory system
CPT/HCPCS: 78452; 93017; A9500; A4216; J2785

== ENCOUNTER → 2022-05-07 | Outpatient (CLI) | payer MEDICARE, SELFPAY ==
[2022-05-07 12:52] LABS: Absolute Lymphocyte Count 1.91 X10^3/uL (0.83-4.51); Absolute Neutrophil Count 4.6 X10^3/uL (2.0-7.7); Basophil# 0.03 X10^3/uL; Basophil% 0.4 % (0-1); Eosinophils% 1.4 % (0-5); Hematocrit 45.7 % (37-47); Hemoglobin 14.7 g/dL (12.0-15.0); Lymphocyte # 1.91 X10^3/ul (0.83-4.51); Lymphocyte % 26.3 % (19-41); Mean Corp Hgb Conc 32.2 g/dL (32-36); Mean Corpuscular Volume 90.1 fL (81-99); Monocyte% 8.3 % (0-10); NRBC Flagged by Analyzer 0 % (0-5); Neutrophil # 4.57 X10^3/uL (2.7-7.7); Platelet Count 223 K/mm3 (150-450); RBC Distribution Width CV 14.1 % (11.6-14.6); RBC Distribution Width SD 46.4 fl (35.1-43.9); Red Blood Count 5.07 M/mm3 (4.2-5.4); White Blood Count 7.3 K/mm3 (4.4-11.0)
[2022-05-07 13:17] LABS: Anion Gap 7 (5-15); BUN 19 mg/dL (7-18); Calcium,Total 9.3 mg/dL (8.5-10.1); Chloride 103 mmol/L (98-107); Creatinine, Serum 0.76 mg/dL (0.55-1.02); EST Glomerular Filtration Rate 81 mL/min (>60); Est Glom Filt Rate - Afr Amer 98 mL/min (>60); Glucose 237 mg/dL (74-106); Potassium 3.7 mmol/L (3.5-5.1); Sodium Level 139 mmol/L (136-145)
== END | disposition home or self-care (01) ==
LOC: LAB 11:16
PROVIDERS: PCP Family Medicine; Referring Provider Internal Medicine Cardiovascular Disease; Visit Provider Internal Medicine Cardiovascular Disease
DX: E78.2 Mixed hyperlipidemia (principal); I10 Essential (primary) hypertension; R94.39 Abnormal result of other cardiovascular function study
CPT/HCPCS: 36415; 80048; 85025

== ENCOUNTER 2022-05-13 06:36 | Day surgery (SDC) | payer MEDICARE, SELFPAY ==
[2022-05-12 15:31] VITALS: BMI 53.8
--- NOTE | 2022-05-13 06:36 | HP_ITS ---
HPI HPI History of Present Illness Details: Pleasant 89 old lady with no previous cardiac history but with a history of hypertension, hyperlipidemia, diabetes mellitus, morbid obesity who has been having substernal chest discomfort which occasionally appears to be worse with exertion when she is also doing some gardening. She also has associated GI symptoms has been on Prilosec but does not think that its been working. She had an EGD in the past. She did have a sister who from a myocardial infarction at age 41. Due to the continued chest discomfort she underwent a pharmacologic stress test which demonstrated evidence of anterior ischemia. She was therefore sent here for further evaluation and management. She denies any dizziness or diaphoresis near syncope or syncope. She has been compliant with her medications. Previous echocardiogram in September 2021 demonstrated an ejection fraction of 63% with no wall motion abnormalities present. Her EKG demonstrates normal sinus rhythm with a rate of 71 bpm and no acute changes. Her physical exam today is unremarkable. Intake Vital Signs 05/07/22 10:05 05/07/22 10:05 Height 5 ft 4 in 5 ft 4 in Weight: 314 lb BMI 53.8 BP 188/89 H Respiration 16 Pulse 76 Pulse Oximetry (%) 97 Intake Visit Reasons: ABNORMAL STRESS TEST Allergies tizanidine [From Zanaflex] Allergy (Intermediate, Verified 05/07/22 10:05) heart racing nitrofurantoin macrocrystalline [From Macrodantin] Allergy (Verified 05/07/22 10:05) Unknown tramadol HCl [From Ultram] Allergy (Verified 05/07/22 10:05) Swelling lisinopril Adverse Reaction (Intermediate, Verified 05/07/22 10:05) muscle spasms semaglutide [From Ozempic] Adverse Reaction (Intermediate, Verified 05/07/22 10:05) constipated ciprofloxacin [From Cipro] Adverse Reaction (Verified 05/07/22 10:05) RED URINE ciprofloxacin HCl [From Cipro] Adverse Reaction (Verified 05/07/22 10:05) RED URINE empagliflozin [From Jardiance] Adverse Reaction (Verified 05/07/22 10:05) stomach pain glimepiride Adverse Reaction (Verified 05/07/22 10:05) stomach pain Medications hydroxychloroquine 200 mg tablet 200 mg PO BID 03/20/14 [History Confirmed 05/07/22] aspirin 81 mg chewable tablet 81 mg PO DAILY 04/23/16 [History Confirmed 05/07/22] baclofen 10 mg tablet 10 mg PO TID PRN Spasms 04/23/16 [History Confirmed 05/07/22] omeprazole magnesium 20 mg tablet,delayed release (Prilosec OTC) 20 mg PO BID 11/10/17 [History Confirmed 05/07/22] cholecalciferol (vitamin D3) 50 mcg (2,000 unit) chewable tablet 2,000 unit PO DAILY 07/07/19 [History Confirmed 05/07/22] fish oil-dha-epa 1,200 mg-144 mg-216 mg capsule 1 ea PO DAILY 07/07/19 [History Confirmed 05/07/22] hydrochlorothiazide 25 mg tablet 25 mg PO DAILY 07/07/19 [History Confirmed 05/07/22] multivitamin with minerals 1 ea PO DAILY 07/07/19 [History Confirmed 05/07/22] diclofenac sodium 1 % topical gel 2 gm topical BID 01/29/21 [History Confirmed 05/07/22] blood sugar diagnostic (UptakeTouch Verio test strips) #180 ea 12/05/21 [Rx Confirmed 05/07/22] losartan 50 mg tablet 50 mg PO 12/05/21 [History Confirmed 05/07/22] Farxiga 10 mg tablet (dapagliflozin) 10 mg PO DAILY #90 tabs 02/20/22 [Rx Confirmed 05/07/22] metformin 1,000 mg tablet 1,000 mg PO BID #180 tabs 04/04/22 [Rx Confirmed 05/07/22] etodolac 400 mg tablet 400 mg PO BID 04/25/22 [History Confirmed 05/07/22] glimepiride 2 mg tablet 3 mg PO DAILY 05/07/22 [History Confirmed 05/07/22] nefazodone 200 mg tablet 200 mg PO QHS 05/07/22 [History Confirmed 05/07/22] pravastatin 80 mg tablet 80 mg PO QHS 05/07/22 [History Confirmed 05/07/22] Ejection fraction %: 60 to 64 PFSH Medical History Anxiety and depression Arthritis Breast lump COVID-19 (06/24/21) Diabetes Essential hypertension Fibromyalgia Gallstones GERD (gastroesophageal reflux disease) IBS (irritable bowel syndrome) Insomnia Lupus Osteoarthritis Pancreatitis Pneumonia Polycystic ovary Seasonal allergies SLE (systemic lupus erythematosus) Stomach ulcer Surgical History H/O breast biopsy H/O hernia repair H/O: hysterectomy Hx of appendectomy Hx of cholecystectomy Hx of tonsillectomy Family History Mother Arthritis Diabetes Heart disease Hypertension High cholesterol Thyroid disorder Lupus Father Liver disease Other Alcohol abuse Anemia Anxiety Asthma Autoimmune disease CVA (cerebral vascular accident) Colon cancer Depression Melanoma Mental disorder Myocardial infarction Psychiatric care Respiratory disease Skin cancer angina ulcer disease Social History Smoking Status: Never smoker second hand exposure: No alcohol intake: never substance use type: does not use ROS Const Const: Negative for fatigue, weakness, headache(s), frequent falls, difficulty sleeping or excessive sweating Eyes Eyes: Negative for loss of peripheral vision, transient loss of vision, blurry vision, double vision or tunnel vision ENT ENT: Negative for headache(s), dizziness, Nosebleed/epistaxis or balance problems Cardio Chest Pain: Yes (left substernal radiates midsternal, episodes after eating or lying down) Palpitations: No Edema: None Muscle aches with walking: None Resp Respiratory: Negative for SOB with activity, SOB at rest, SOB orthopnea\SOB lying down, Cough or paroxysmal nocturnal dyspnea GI GI: Positive for heartburn (has f/u with GI); Negative nausea, vomiting or black,tarry stools : Negative for hematuria Musc Musc: Negative for muscle aches/ myalgia, muscle weakness, joint pain or balance problems Skin Skin: Negative non-healing lesions, rash or unusual bruising Neuro Neuro: Negative for dizziness, lightheadedness, near syncope, syncope, orthostatic symptoms, frequent falls, headache(s), weakness, confusion, memory loss, blurry vision, double vision, vertigo or lack of coordination Jacob Hematologic/Lymphatic: Negative for easy bleeding or easy bruising Endo Endo: Negative for fatigue, excessive sweating, flushing or increased thirst/drinking Psych Psych: Negative for anxiety or depression Allergy Allergy/Immunology: Negative for hives and Negative for rash Cardiology Exam Const Appearance: cooperative, healthy appearing, no acute distress, well developed and well groomed Nutritional Appearance: average body habitus and well nourished Orientation: alert, awake and oriented x3 Head Head: normal to inspection, normocephalic and atraumatic Ears: hearing grossly normal bilaterally and external ears normal Nose: external nose normal, nares normal, nasal mucous membranes and turbinates normal, septum normal and no nasal discharge Face and Sinus: face symmetric Mouth: oral mucosae normal, tongue normal, oropharynx normal and moist mucous membranes Teeth and gingiva: dentition normal Throat: posterior oropharynx normal, tonsils normal and uvula midline Eyes General: appearance normal, both eyes and all related structures Eyelids: eyelids normal Conjunctivae: conjunctivae normal Pupils: PERRL, normal by confrontation and accommodation normal EOM: EOM intact bilaterally Neck Neck: normal visual inspection, trachea midline and no JVD JVD: +5 Carotids: normal carotid upstroke and bounding pulses Chest Chest inspection: normal inspection of the chest, symmetric chest movement and normal respiratory effort Auscultation: Bilateral: Clear to Auscultation Cardio Palpation: normal PMI Rate: regular rate Rhythm: regular rhythm Heart sounds: S1 normal, S2 normal and normal, physiologic split S2; Negative rub, gallop or murmur GI GI: normal to inspection, soft, no hepatosplenomegaly and bowel sounds present Neuro General: patient alert, patient awake, patient oriented x3, gait normal, moves all extremities and no focal sensory deficit Skin Skin: no rashes or lesions noted Extremities Pulses: Normal: Right Femoral Pulse, Left Femoral Pulse, Right Dorsalis Pedis Pulse, Left Dorsalis Pedis Pulse, Right Posterior Tibial Pulse, Left Posterior Tibial Pulse, Right Radial Pulse and Left Radial Pulse Lower Extremity Edema: None: Bilateral Musculoskel Musculoskeletal: No joint tenderness Psych Psychological: normal affect Supplemental Info Supplemental Information Pharmacologic myocardial perfusion stress test 03/27/2022 Resting EKG demonstrates normal sinus rhythm with a rate of 71 bpm normal intervals are noted resting blood pressure is 148/78 mmHg.? 0.4 mg of regadenoson was infused per usual protocol followed by rapid intravenous saline flush injection continuous EKG monitoring was performed.? Patient maintained sinus rhythm throughout the recording.? The maximum heart rate attained was 103 bpm which was 66% of max impacted heart rate the maximum workload was 1 metabolic equivalent.? At rest there were no ST or T wave changes noted to suggest abnormal flow reserve and at peak infusion nonspecific ST changes were noted with did not meet the criteria for ischemia.? No clinical angina was noted.? The final blood pressure was 140/80 mmHg. Perfusion SPECT analysis: Review of the stress images demonstrate mildly reduced perfusion noted in the mid anterior wall with improvement on the resting images the above is possibly suggestive of mild mid anterior ischemia.? No obvious infarct is noted. Conclusion: Mildly abnormal pharmacologic stress test with evidence of mild anterior ischemia. Preserved ejection fraction. ECHOCARDIOGRAM 10/08/2021 CONCLUSIONS: - Technically difficult exam due to body habitus. - Exam indication: Cardiac murmur - The left ventricle is normal in size. Left ventricular systolic function is normal. EF = 63 ? 5% (2D 4-ch.) Normal left ventricular diastolic function. - The right ventricle is normal in size. Right ventricular systolic function is normal. - There are no apparent significant valvular abnormalities. Labs: LDL Cholesterol 79 mg/dL (0-130) HDL Cholesterol 46 mg/dL (40-) Triglycerides 165 mg/dL (-199) VLDL Cholesterol 33 mg/dL (5-40) Diagnostics: Stress Test NM Stress Test Pulmonary: No Data to Display Assessment and Plan Assessment and Plan (1) Abnormal stress test: Status: Acute Plan: She does have an abnormal stress test. This together with her family history, diabetes, hypertension, and chest discomfort I would suggest that we pursue a left heart catheterization. The risk benefits and alternatives have been explained to her she understands and agrees to proceed. Depending on the findings further recommendations will be made. (2) Essential hypertension: Status: Acute Plan: She does have a history of hypertension. There is an anxiety component to her hypertension as well. At this time she appears to be stable I will hold off on starting her on any new medications until we have performed the cardiac catheterization. For now she would remain on the losartan as well as the hydrochlorothiazide. (3) Hyperlipidemia: Status: Chronic Qualifiers: Hyperlipidemia type: mixed hyperlipidemia Qualified Code(s): E78.2 - Mixed hyperlipidemia Plan: She does have a history of hyperlipidemia. Her most recent lipid profile from September demonstrating a total cholesterol 171, LDL of 98 and HDL of 43. No other changes will be made with respect to the above. She will remain on her current dose of pravastatin. Orders: Orders Left Heart Cath/COR/LV Percut Today R94.39 - Abnormal result of other cardiovascular function study Dr. Dennis Ludwig MD Basic Metabolic Profile (BMP) Today E78.2 - Mixed hyperlipidemia, I10 - Essential (primary) hypertension, R94.39 - Abnormal result of other cardiovascular function study Dr. Dennis Ludwig MD CBC W/Diff, Automated Today E78.2 - Mixed hyperlipidemia Dr. Dennis Ludwig MD Medications: Changed From glimepiride 2 mg PO BID 180 tabs 1RF To glimepiride [address] Dennis Ludwig MD On Hold etodolac Hold Comment: until ok with cardiology 400 mg PO BID Mirela Hager Plan Details Follow Up: prn Coding Level of Care Code Off vis,new,level 5 Diagnoses Abnormal stress test R94.39 Essential hypertension I10 Hyperlipidemia E78.2 Hyperlipidemia type: mixed hyperlipidemia Coding Level of Care Code Off vis,new,level 5 Diagnoses Abnormal stress test R94.39 Essential hypertension I10 Hyperlipidemia E78.2 Hyperlipidemia type: mixed hyperlipidemia
--- NOTE | 2022-05-13 08:41 | CL.D_ITS ---
Patient Name: VILMA DIAL I Study Date: 05/13/2022 Performing: Dennis Ludwig MD Ht: 64 inches 163 cm : 1955 Wt: 313.5 lbs 142 kg Age: 66 Gender: female BSA: 2.37 PROCEDURE(S) PERFORMED DC02-(44300)LHC/COR CLINICAL PROFILE AND INDICATIONS Indications: Suspected CAD Heart Failure: None Stress/Imaging Date: 03/27/22Stress Test with SPECT MPI: Positive Low Risk CAD Presentations: Symptom unlikely to be ischemic. CONCLUSIONS Non obstructive coronary arteries Normal LV size, wall motion,and systolic function RECOMMENDATIONS Medical therapy DESCRIPTION OF PROCEDURE The patient arrived to the procedure lab. The risks and benefits of the procedure as well as a full d escription of our services here and current unavailability of surgical backup were fully explained to the patient and/or their significant other prior to the catheterization. The Timeout was completed, verifying the correct patient and procedure. The patient's procedural site was prepped and draped in the usual fashion. Local anesthetic was given subcutaneously to right radial region with Lidocaine 2% . Using a modified Seldinger technique, arterial access was obtained via the right radial artery, a 6 Fr sheath was inserted. Right Coronary Artery selective angiography was then performed in multiple v iews using a 5 Fr. 4.0 [place] catheter. Left Coronary Artery selective angiography was performed in mu ltiple views using a 5 Fr. JL3.5 catheter.The arterial sheath was pulled and a TR Band was applied fo r hemostasis w/ 8ml air CORONARY ANGIOGRAPHY DOMINANCE: Right Dominant LEFT HEART ASSESSMENT Left Ventricular Ejection Fraction: by LV Gram 60 % Normal LV wall motion Normal Left Ventricular systolic function LEFT MAIN: 20 % Stenosis LEFT ANTERIOR DESCENDING ARTERY: Angiographically normal CIRCUMFLEX ARTERY: Angiographically normal RIGHT CORONARY ARTERY: No significant disease noted COMPLICATIONS No Complications PROCEDURE MEDICATIONS Versed 1 mg IV Fentanyl 50 mcg IV Versed 1 mg IV Fentanyl 50mcg IV Oxygen: 2 L/min via nasal cannula Baby Aspirin (81mg) 1 Tabs PO @ 05/13/2022 00:07:00 Heparin given IA 05/13/2022 08:17:26 Verapamil 2.5mg, Ntg 100mcgs, 3000 units of Heparin given IA 05/13/2022 08:17:26 SUMMARY OF HEMODYNAMIC DATA Time AIR REST ECG 07:07:43 Art 203/82 (128) 08:07:10 ECG 08:13:58 AO 154/80 (110) SA 08:19:12 Signed By Dennis Ludwig MD On 05/13/2022 08:40:28 Dennis Ludwig MD
== END 2022-05-13 10:30 | disposition home or self-care (01) ==
LOC: CLSP 06:38
PROVIDERS: PCP Family Medicine; Referring Provider Internal Medicine Cardiovascular Disease; Visit Provider Internal Medicine Cardiovascular Disease
DX: I25.10 Atherosclerotic heart disease of native coronary artery without angina pectoris (principal); M32.9 Systemic lupus erythematosus, unspecified; Z68.43 Body mass index [BMI] 50.0-59.9, adult; E66.01 Morbid (severe) obesity due to excess calories; E11.9 Type 2 diabetes mellitus without complications; I10 Essential (primary) hypertension; E78.5 Hyperlipidemia, unspecified; M79.7 Fibromyalgia; G47.00 Insomnia, unspecified; E78.2 Mixed hyperlipidemia; M19.90 Unspecified osteoarthritis, unspecified site; K21.9 Gastro-esophageal reflux disease without esophagitis; E28.2 Polycystic ovarian syndrome; Z79.84 Long term (current) use of oral hypoglycemic drugs; Z79.899 Other long term (current) drug therapy; Z86.16 Personal history of COVID-19
CPT/HCPCS: 93454; 99152; 99153; J7040; C1769; C1894; Q9967

== ENCOUNTER → 2022-08-19 | Outpatient (CLI) | payer MEDICARE, MEDICAID, SELFPAY ==
[2022-08-19 17:17] LABS: Absolute Lymphocyte Count 2.32 X10^3/uL (0.83-4.51); Absolute Neutrophil Count 4.5 X10^3/uL (2.0-7.7); Basophil# 0.02 X10^3/uL; Basophil% 0.3 % (0-1); Eosinophil# 0.09 X10^3/uL; Eosinophils% 1.2 % (0-5); Hematocrit 47.4 % (37-47); Hemoglobin 15.3 g/dL (12.0-15.0); Lymphocyte # 2.32 X10^3/ul (0.83-4.51); Lymphocyte % 30.8 % (19-41); Mean Corp Hgb Conc 32.3 g/dL (32-36); Mean Corpuscular Hgb 29.5 pg (27.0-32.0); Mean Corpuscular Volume 91.3 fL (81-99); Monocyte# 0.62 X10^3/uL; Monocyte% 8.2 % (0-10); NRBC Flagged by Analyzer 0 % (0-5); Neutrophil # 4.45 X10^3/uL (2.7-7.7); Platelet Count 247 K/mm3 (150-450); RBC Distribution Width CV 13.7 % (11.6-14.6); RBC Distribution Width SD 46.2 fl (35.1-43.9); Red Blood Count 5.19 M/mm3 (4.2-5.4); White Blood Count 7.5 K/mm3 (4.4-11.0)
[2022-08-19 17:32] LABS: Erythrocyte Sedimentation Rate 31 mm/hr (0-30)
[2022-08-19 17:47] LABS: ALB/GLOB Ratio 0.8 RATIO (0.9-2.4); AST(SGOT) 32 U/L (15-37); Alanine Aminotransfer ALT/SGPT 40 U/L (13-56); Albumin, Serum 3.4 g/dL (3.2-5.0); Alkaline Phosphatase 85 U/L (45-117); Anion Gap 8 (5-15); BUN 17 mg/dL (7-18); BUN/Creat Ratio 20.5 RATIO (10-20); CRP 4.08 mg/L (0.0-3.0); Calcium,Total 9.1 mg/dL (8.5-10.1); Chloride 102 mmol/L (98-107); Creatinine, Serum 0.83 mg/dL (0.55-1.02); EST Glomerular Filtration Rate 73 mL/min (>60); Est Glom Filt Rate - Afr Amer 89 mL/min (>60); Glucose 129 mg/dL (74-106); LDH 232 U/L (84-246); Potassium 3.8 mmol/L (3.5-5.1); Protein, Total 7.4 g/dL (6.4-8.2); Sodium Level 138 mmol/L (136-145)
[2022-08-21 15:08] LABS: Anti-Centromere B Ab <0.2 AI (0.0-0.9); Anti-Chromatin <0.2 AI (0.0-0.9); Anti-Jo <0.2 AI (0.0-0.9); Anti-Scleroderma-70 AB <0.2 AI (0.0-0.9); RNP Ab <0.2 AI (0.0-0.9); SJOGREN'S Anti-SS-A test < 0.2 AI (0.0-0.9); SJOGREN'S Anti-SS-B test < 0.2 AI (0.0-0.9); Smith Ab <0.2 AI (0.0-0.9)
[2022-08-21 16:08] LABS: Endomysial Antibody IgA Negative (Negative); Immunoglobulin A 272 mg/dL (87-352)
[2022-08-21 16:10] LABS: Anti-dsDNA Ab <1 IU/mL (0-9)
[2022-08-21 16:14] LABS: Cytoplasmic Ab (C-ANCA) <1:20 titer (Neg:<1:20); Perinuclear Ab (P-ANCA) <1:20 titer (Neg:<1:20); t-Transglutaminase IgA 3 U/mL (0-3)
== END | disposition home or self-care (01) ==
PROVIDERS: Nurse Practitioner Adult Health; PCP Family Medicine; Visit Provider Internal Medicine Gastroenterology
DX: K21.9 Gastro-esophageal reflux disease without esophagitis (principal); R10.9 Unspecified abdominal pain; K57.90 Diverticulosis of intestine, part unspecified, without perforation or abscess without bleeding; R07.9 Chest pain, unspecified
CPT/HCPCS: 36415; 80053; 82784; 83516; 83615; 85025; 85652; 86140; 86225; 86235; 86255; 86256

== ENCOUNTER → 2022-08-20 | Outpatient (CLI) | payer MEDICARE, SELFPAY ==
[2022-08-24 21:13] LABS: Calprotectin, Stool 139 ug/g (0-120)
== END | disposition home or self-care (01) ==
LOC: LAB 14:05
PROVIDERS: PCP Family Medicine; Visit Provider Nurse Practitioner Adult Health
DX: K58.9 Irritable bowel syndrome, unspecified (principal); K21.9 Gastro-esophageal reflux disease without esophagitis; R10.9 Unspecified abdominal pain; K57.90 Diverticulosis of intestine, part unspecified, without perforation or abscess without bleeding; R07.9 Chest pain, unspecified
CPT/HCPCS: 83630; 83993

== ENCOUNTER → 2022-09-08 | Outpatient (CLI) | payer MEDICARE, SELFPAY ==
--- NOTE | 2022-09-08 13:34 | CT_ITS ---
EXAM: CT ABDOMEN AND PELVIS WITH INTRAVENOUS CONTRAST CLINICAL INDICATION: LLQ pain, rectal bleeding -- oral and IV TECHNIQUE: Helically acquired images were obtained of the abdomen and pelvis with intravenous contrast. This CT exam was performed using one or more of the following dose reduction techniques: automated exposure control, adjustment of the mA and/or kV according to patient size, and/or use of iterative reconstruction technique. This report was created using [employer] report generation technology. CONTRAST: Oral and amp; IV Readi-CAT and amp; 100mL Isovue-300 COMPARISON: None. FINDINGS: LOWER THORAX: Normal. Lung bases are clear. No cardiomegaly. No pericardial effusion. ABDOMEN: LIVER: Liver is enlarged and mildly steatotic. GALLBLADDER AND BILE DUCTS: Gallbladder is absent. No intra- or extrahepatic biliary ductal dilation. PANCREAS: Normal. No focal cystic or solid mass. SPLEEN: Normal. Normal size without focal cystic or solid mass. ADRENALS: Normal. No nodules. KIDNEYS AND URETERS: Normal. Normal renal size and position. No hydronephrosis. STOMACH AND BOWEL: Normal. No bowel distention. No focal inflammatory change. PELVIS: APPENDIX: No evidence of acute appendicitis. BLADDER: Normal. REPRODUCTIVE: Uterus is absent. ABDOMEN and PELVIS: INTRAPERITONEAL SPACE: Normal. No ascites or other fluid collection. No free air. BONES/JOINTS: Normal. No suspicious lytic or blastic abnormality. SOFT TISSUES: Normal. No discrete abdominal or pelvic wall hernia. VASCULATURE: Normal. Abdominal aorta is non-dilated. LYMPH NODES: Normal. No enlarged lymph nodes. CT/Abdomen/Pelvis WITH Contrast IMPRESSION: 1. Enlarged mildly steatotic liver. 2. No bowel abnormality identified. Electronically Signed: Radhames Thayer MD at 16:12 EST ,
== END | disposition home or self-care (01) ==
LOC: CT 13:17
PROVIDERS: PCP Family Medicine; Referring Provider Nurse Practitioner Adult Health; Visit Provider Nurse Practitioner Adult Health
DX: K62.5 Hemorrhage of anus and rectum (principal); R10.32 Left lower quadrant pain
CPT/HCPCS: 74177; Q9967

== ENCOUNTER 2022-10-22 06:27 | Day surgery (SDC) | payer MEDICARE, SELFPAY ==
[2022-10-22] VITALS (7 sets, daily range): BP systolic 121–156; BP diastolic 64–103; PULSE 62–80; RESP 16–18; TEMP 36.2–36.7; O2SAT 94–98; BMI 51.7
[2022-10-22] MEDS: Lactated Ringers 1,000 ML 15 ML IV (07:01)
--- NOTE | 2022-10-22 07:45 | IMM_PTH ---
PATIENT: VILMA DIAL I LOC: EN U#:[id number] AGE/SX: 67/F ROOM: RE10/22/[address]: Dr. Goran Natarajan DO : 1955 BED: DIS: 10/22/2022 SPEC #: [id number] RECD: 10/22/22 12:52 STATUS: YONATAN RELucien #: [id number] PIPPA: 10/22/22 07:[address]: Goran Natarajan DEPT: IMMUNOHISTOCHEMISTRY RECD BY: Mary Villatoro ENTERED: 10/22/22 12:52 SP TYPE: IMMUNO OTHR DR: Dr. Ron Ortiz MD Tissues: B - Stomach, NOS Procedures: H Pylori (initial) PHYSICIAN & INSTITUTION [place] [address] SPECIMEN INFORMATION: Tissue Source: B ? Gastric antrum Clinical Info: GERD, abdominal pain, diverticular disease, LLQ abdominal pain, rectal bleeding Specimen Number: [id number] CPT code: 06427 METHODOLOGY: Deparaffinized sections of prefer/formalin-fixed tissue or PAP/DQ stained slides are incubated with monoclonal/polyclonal antibodies/oligonucleotide probes. Localization is made via biotin free immunoperoxidase method. Appropriate controls are performed and reacted as expected. Results on target cell population are indicated in the following table: RESULTS: ANTIBODY / CLONE RESULT Block B H Pylori (polyclonal) negative These tests were developed and their performance characteristics determined by [facility]. They may not have been cleared or approved by the U.S. Food and Drug Administration. The FDA has determined that such clearance or approval is not necessary. The above immunohistochemical/dualISH markers are ordered and reviewed by the Pathologist. INTERPRETATION: B. Gastric antrum, biopsy: Negative for Helicobacter pylori organisms. AM:augustine 10/24/2022
--- NOTE | 2022-10-22 07:45 | COLBX_PTH ---
PATIENT: VILMA DIAL I LOC: EN U#:[id number] AGE/SX: 67/F ROOM: RE10/22/[address]: Dr. Goran Natarajan DO : 1955 BED: DIS: 10/22/2022 SPEC #: [id number] RECD: 10/22/22 10:29 STATUS: YONATAN DORA #: [id number] PIPPA: 10/22/22 07:[address]: Goran Natarajan DEPT: SURGICAL PATHOLOGY RECD BY: Birdie Helm ENTERED: 10/22/22 12:03 SP TYPE: COLON BX OTHR DR: Dr. Ron Ortiz MD Tissues: A - Gastric mucous membrane B - Gastric mucous membrane C - Esophagus, NOS D - COLON BIOPSY E - Cecum, NOS F - Ileum, NOS G - COLON BIOPSY H - SPLENIC FLEXURE I - Rectum, NOS Procedures: Special Stain Group II Surgery Specimen Level IV Alcian Blue/PAS (control) HEADER OPERATION: Colonoscopy, EGD ([facility] [place]) with biopsies and polypectomy PRE-OP DIAGNOSIS: GERD, abdominal pain, diverticular disease, chest pain, LLQ abdominal pain, rectal bleeding TISSUE SUBMITTED: A ? Gastric body biopsy, B ? Gastric antrum biopsy for H. pylori and path, C ? Distal esophagus biopsy, D ? Hepatic flexure polyp, E ? Cecal polyp biopsy, F ? Terminal ileum biopsy, G ? Random colon biopsies, H ? Splenic flexure colon polyp, I ? Rectal polyp MICROSCOPIC DIAGNOSIS A. Gastric body, biopsy: Chronic gastritis. B. Gastric antrum, biopsy: Mild chronic gastritis. See comment. C. Distal esophagus, biopsy: Fragments of gastric mucosa with chronic inflammation. No evidence of goblet cell metaplasia. See comment. D. Colonic polyp at hepatic flexure, biopsy: Fragments of tubular adenoma. E. Cecal polyp, biopsy: Fragments of benign colonic mucosa. See comment. F. Terminal ileum, biopsy: No pathologic change. G. Colon, random biopsy: No pathologic change. H. Colonic polyp at hepatic flexure, biopsy: Tubular adenoma. I. Rectal polyp, biopsy: Cauterized fragment of colonic mucosa with focal hyperplastic-type change. AM:augustine 10/23/2022 COMMENT B. The results of immunohistochemistry for Helicobacter pylori will be reported separately ([id number]). C. Alcian blue/PAS stain with matched control supports the above diagnosis. E. Neither hyperplastic nor adenomatous change is identified. Clinical correlation is suggested. MICROSCOPIC DESCRIPTION Slides are reviewed. GROSS DESCRIPTION A - Received in fixative is one container labeled with the patient's name and designated gastric body biopsy. The specimen consists of multiple irregular fragments of light griffin soft tissue that in aggregate measure 0.5 x 0.5 x 0.1 cm. The specimen is totally submitted in one cassette. B - Received in fixative is one container labeled with the patient's name and designated gastric antrum biopsy. The specimen consists of two irregular fragments of light griffin soft tissue that in aggregate measure 0.6 x 0.3 x 0.1 cm. The specimen is totally submitted in one cassette. C - Received in fixative is one container labeled with the patient's name and designated distal esophagus biopsy. The specimen consists of two irregular fragments of light griffin soft tissue that in aggregate measure 0.6 x 0.3 x 0.1 cm. The specimen is totally submitted in one cassette. D - Received in fixative is one container labeled with the patient's name and designated hepatic flexure polyp. The specimen consists of multiple irregular fragments of light griffin soft tissue that in aggregate measure 1.5 x 0.8 x 0.3 cm. The specimen is totally submitted in one cassette. E - Received in fixative is one container labeled with the patient's name and designated cecal polyp biopsy. The specimen consists of multiple irregular fragments of light griffin soft tissue that in aggregate measure 0.6 x 0.3 x 0.1 cm. The specimen is totally submitted in one cassette. F - Received in fixative is one container labeled with the patient's name and designated terminal ileum biopsy. The specimen consists of multiple irregular fragments of light griffin soft tissue that in aggregate measure 1.2 x 0.3 x 0.1 cm. The specimen is totally submitted in one cassette. G - Received in fixative is one container labeled with the patient's name and designated random colon biopsy. The specimen consists of multiple irregular fragments of light griffin soft tissue that in aggregate measure 0.6 x 0.3 x 0.1 cm. The specimen is totally submitted in one cassette. H - Received in fixative is one container labeled with the patient's name and designated splenic flexure colon polyp. The specimen consists of a griffin-pink polyp measuring 1 x 0.6 x 0.5 cm. The polyp is bisected. The presumed base is inked. Also present in the container are multiple fragments of griffin soft tissue mixed with fecal material measuring in aggregate 0.5 x 0.2 x 0.1 cm. The specimen is submitted entirely in one cassette. I - Received in fixative is one container labeled with the patient's name and designated rectal polyp. The specimen consists of multiple irregular fragments of light griffin soft tissue mixed with fecal material that in aggregate measure 0.5 x 0.1 x 0.1 cm. The specimen is totally submitted in one cassette. / VIVI:augustine 10/22/2022 TC:3 CPT: 16903 x9, 93821
--- NOTE | 2022-10-22 07:50 | PCM.HP.BLA ---
History and Physical Date of Admission: 10/22/22 66 F who presents to the office today for chest pain possibly due to GERD. She had negative cardiac workup. She reports retrosternal pain that can be sharp, worse when lying on left side or if she lies prone. Doesn't occur daily. Better if she avoids pop, spicy foods. Worse with stress. Doesn't radiate. Started months ago. Reports hx of CP at age 18, was diagnosed with gastric ulcer then. No sense of esophageal spasms. She takes ASA 81 mg daily. She used to take etodolac prn, hasn't resumed it yet. Remote hx of H pylori. Also gets pain in LUQ, random, feels like it's in her stomach. Has carafate pills, helps with the LUQ pain. And feels a heartbeat in the RUQ that she also feels in her throat sometimes, like palpitations but not of the heart; no pattern she can discern, occurs at rest. Takes omeprazole 20 mg BID, has more stomach pain if she doesn't take it, eg if she forgets the 2nd dose of the day. PPI doesn't seem to affect the CP. Also notes she always feels bloated, and has gas. Can alternate between diarrhea and constipation. Has been diagnosed with IBS-alternating. Doesn't take anything for the bowels. Has tried metamucil, made constipation worse. Occas nausea, no vomiting. No dysphagia. No melena. She has seen bright red blood in the toilet bowl, she attributes this to hemorrhoids, occurs when she has frequent BMs. Gets pains in LLQ, she wonders if related to diveritula, started years ago. Has lupus, sees a [facility] in [place] every 3 mos. 06/2019 EGD and colonoscopy--mild chronic gastritis, negative Garcia's negative H. pylori.? Normal colon, diverticulosis in the sigmoid colon.? Hx colon polyps ROS Const Constitutional: Positive for fatigue ENT ENT: No difficulty swallowing Cardio Cardiology: Positive for leg pain with exertion Gastro GI: Positive for abdominal pain, bloating, constipation, diarrhea, heartburn and excessive flatus; No belching, change in bowel habits, change in stool character, coffee ground emesis, cramping, difficulty swallowing, feeling full early, incontinent of stools, Vomiting blood/hematemesis, Blood in stool, loose stools, Black,tarry stools, nausea/dyspepsia, pain with swallowing, vomiting or other Musc Musculoskeletal: Positive for joint pain, back pain, joint swelling, muscle cramps, stiffness, tingling, Arthritis, sciatica, leg pain at night and leg pain with exertion Skin Skin: No yellowing of the eye or itchy eyes Neuro Neurology: Positive for tingling Psych Psychiatric: Positive for anxiety and No depression Endo Endocrine: Positive for fatigue Aller/Imm Allergy/Immunologic: No itchy eyes Jacob/Lymp Hematologic/Lymphatic: Positive for easy bruising; No easy bleeding Exam Const General: cooperative and comfortable Nutritional Appearance: obese Orientation: alert, awake and oriented x3 HENMT Head: normal to inspection Eyes General: appearance normal, both eyes and all related structures Chest Chest palpation & inspection: normal inspection of the chest and normal palpation of entire chest wall Resp Effort & Inspection: normal respiratory effort GI Inspection: obesity Palpation: soft, no hepatosplenomegaly, no masses and tender in the LUQ Skin General: no rashes or lesions noted and no jaundice Quality Reporting Tobacco Screening (CMS 138) Smoking Status: Never smoker Assessment and Plan Assessment and Plan (1) GERD (gastroesophageal reflux disease): ?Status:?Chronic ?Plan: 66-year-old female with intermittent chest pain which may be related to acid reflux.? She reports being told she has a hiatal hernia.? She has a history of H. pylori, she has a history of gastric ulcer.? Continue omeprazole 20 mg twice daily.? She also has intermittent left lower quadrant pain, possible this is related to diverticular disease.? She has alternating diarrhea and constipation, may be IBS.? She has intermittent bright red blood per rectum.? We will schedule her for EGD and colonoscopy.? She needs to be evaluated for esophagitis, Garcia's, possible esophageal dysmotility although no dysphagia, peptic ulcer disease, H. pylori, duodenitis, diverticular disease, malignancy.? We will get CT abdomen pelvis with oral and IV contrast to further evaluate the left lower quadrant abdominal pain and rectal bleeding.? Labs today to include tests for inflammation, celiac, autoimmune, IBD.? Follow-up 2 weeks after endoscopies. (2) Abdominal pain: ?Status:?Acute ?Plan: As above (3) Diverticular disease: ?Status:?Acute ?Plan: As above (4) Chest pain: ?Status:?Acute ?Plan: As above (5) LLQ abdominal pain: ?Status:?Acute ?Plan: As above (6) Rectal bleeding: ?Status:?Acute ?Plan: As above ? ? ? Orders: Orders Comprehensive Metabolic Profil Today K21.9 - Gastro-esophageal reflux disease without esophagitis, K57.90 - Diverticulosis of intestine, part unspecified, without perforation or abscess without bleeding, R07.9 - Chest pain, unspecified, R10.9 - Unspecified abdominal pain ? CRP Today K21.9 - Gastro-esophageal reflux disease without esophagitis, K57.90 - Diverticulosis of intestine, part unspecified, without perforation or abscess without bleeding, R07.9 - Chest pain, unspecified, R10.9 - Unspecified abdominal pain ? LDH Today K21.9 - Gastro-esophageal reflux disease without esophagitis, K57.90 - Diverticulosis of intestine, part unspecified, without perforation or abscess without bleeding, R07.9 - Chest pain, unspecified, R10.9 - Unspecified abdominal pain ? CBC W/Diff, Automated Today K21.9 - Gastro-esophageal reflux disease without esophagitis, K57.90 - Diverticulosis of intestine, part unspecified, without perforation or abscess without bleeding, K58.9 - Irritable bowel syndrome without diarrhea, R07.9 - Chest pain, unspecified, R10.9 - Unspecified abdominal pain ? Erythrocyte Sed Rate Today K21.9 - Gastro-esophageal reflux disease without esophagitis, K57.90 - Diverticulosis of intestine, part unspecified, without perforation or abscess without bleeding, R07.9 - Chest pain, unspecified, R10.9 - Unspecified abdominal pain ? MADELYN Comprehensive Panel Today K21.9 - Gastro-esophageal reflux disease without esophagitis, K57.90 - Diverticulosis of intestine, part unspecified, without perforation or abscess without bleeding, R07.9 - Chest pain, unspecified, R10.9 - Unspecified abdominal pain ? Calprotectin, Stool Today K21.9 - Gastro-esophageal reflux disease without esophagitis, K57.90 - Diverticulosis of intestine, part unspecified, without perforation or abscess without bleeding, R07.9 - Chest pain, unspecified, R10.9 - Unspecified abdominal pain ? Stool Lactoferrin/WBC Today K21.9 - Gastro-esophageal reflux disease without esophagitis, K57.90 - Diverticulosis of intestine, part unspecified, without perforation or abscess without bleeding, K58.9 - Irritable bowel syndrome without diarrhea, R07.9 - Chest pain, unspecified, R10.9 - Unspecified abdominal pain ? ANCA Today K21.9 - Gastro-esophageal reflux disease without esophagitis, K57.90 - Diverticulosis of intestine, part unspecified, without perforation or abscess without bleeding, R07.9 - Chest pain, unspecified, R10.9 - Unspecified abdominal pain ? Celiac Disease Profile Today K21.9 - Gastro-esophageal reflux disease without esophagitis, K57.90 - Diverticulosis of intestine, part unspecified, without perforation or abscess without bleeding, R07.9 - Chest pain, unspecified, R10.9 - Unspecified abdominal pain ? Abdomen/Pelvis WITH Contrast Today K62.5 - Hemorrhage of anus and rectum, R10.32 - Left lower quadrant pain ? I have examined the patient and the H&P has been reviewed. There are no clinical changes since date of exam.
[2022-10-22 08:00] LABS: Bedside Glucose 223 mg/dL (74-106)
--- NOTE | 2022-10-22 08:45 | OP.COLON_ITS ---
Patient Name: Laura Siddiqui Procedure Date: 10/22/2022 8:01 AM Date of : 1955 Age: 67 Procedure: Colonoscopy Indications: Screening for colorectal malignant neoplasm Providers: Goran Natarajan DO Medicines: Monitored Anesthesia Care Patient Profile: This is a 67 year old female. Refer to note in patient chart for documentation of history and physical. Last Colonoscopy: date unknown. Unable to locate last colonoscopy report. Complications: No immediate complications. Procedure: Pre-Anesthesia Assessment: - Prior to the procedure, a History and Physical was performed, and patient medications and allergies were reviewed. The patient is competent. The risks and benefits of the procedure and the sedation options and risks were discussed with the patient. All questions were answered and informed consent was obtained. Patient identification and proposed procedure were verified by the physician in the pre-procedure area. Mental Status Examination: normal. Prophylactic Antibiotics: The patient does not require prophylactic antibiotics. Prior Anticoagulants: The patient has taken no previous anticoagulant or antiplatelet agents. After reviewing the risks and benefits, the patient was deemed in satisfactory condition to undergo the procedure. The anesthesia plan was to use monitored anesthesia care (MAC). Immediately prior to administration of medications, the patient was re-assessed for adequacy to receive sedatives. The heart rate, respiratory rate, oxygen saturations, blood pressure, adequacy of pulmonary ventilation, and response to care were monitored throughout the procedure. The physical status of the patient was re-assessed after the procedure. After I obtained informed consent, the scope was passed under direct vision. Throughout the procedure, the patient's blood pressure, pulse, and oxygen saturations were monitored continuously. The colonoscope was introduced through the anus and advanced to the terminal ileum. The colonoscopy was performed without difficulty. The patient tolerated the procedure well. The quality of the bowel preparation was good. Scope In: 8:03:18 AM Scope Withdrawal Time 0 hours 24 minutes 20 seconds Scope Out: 8:37:16 AM Total Procedure Duration Time 0 hours 33 minutes 58 seconds Findings: Hemorrhoids were found on perianal exam. A few small-mouthed diverticula were found in the recto-sigmoid colon and sigmoid colon. Three sessile polyps were found in the rectum, splenic flexure and hepatic flexure. The polyps were 1 to 2 mm in size. These polyps were removed with a hot snare. Resection and retrieval were complete. Verification of patient identification for the specimen was done. Estimated blood loss was minimal. Area was successfully injected with 5 mL Naina ink for tattooing at the splenic flexure polypectomy site. Estimated blood loss was minimal. Patchy mild inflammation characterized by congestion (edema) and erythema was found in the descending colon, in the ascending colon and in the cecum. Biopsies were taken with a cold forceps for histology. Verification of patient identification for the specimen was done. Estimated blood loss was minimal. A patchy area of the terminal ileum was congested. Biopsies were taken with a cold forceps for histology. Verification of patient identification for the specimen was done. Estimated blood loss was minimal. Impression: - Hemorrhoids found on perianal exam. - Diverticulosis in the recto-sigmoid colon and in the sigmoid colon. - Three 1 to 2 mm polyps in the rectum, at the splenic flexure and at the hepatic flexure, removed with a hot snare. Resected and retrieved. - Patchy mild inflammation was found in the descending colon, in the ascending colon and in the cecum secondary to colitis. Biopsied. - Congested mucosa in the terminal ileum. Biopsied. Recommendation: - Discharge patient to home. - Resume previous diet. - Continue present medications. - Await pathology results. - Repeat colonoscopy in 3 years for surveillance. Procedure Code(s): --- Professional --- 37479, Colonoscopy, flexible; with removal of tumor(s), polyp(s), or other lesion(s) by snare technique 11397, Colonoscopy, flexible; with directed submucosal injection(s), any substance 33610, 59, Colonoscopy, flexible; with biopsy, single or multiple CPT copyright 2017 [employer]. All rights reserved. The codes documented in this report are preliminary and upon director marketing review may be revised to meet current compliance requirements. Goran Natarajan DO 10/22/2022 8:45:25 AM This report has been signed electronically. Number of Addenda: 0 Note Initiated On: 10/22/2022 8:01 AM
--- NOTE | 2022-10-22 08:46 | OP.CCLET_ITS ---
10/22/2022 Ron Ortiz Re : Colonoscopy procedure for Laura Siddiqui Dear Diana This procedure was performed on Saturday, October 22, 2022. My impressions and recommendations are as follows: Impressions : - Hemorrhoids found on perianal exam. - Diverticulosis in the recto-sigmoid colon and in the sigmoid colon. - Three 1 to 2 mm polyps in the rectum, at the splenic flexure and at the hepatic flexure, removed with a hot snare. Resected and retrieved. - Patchy mild inflammation was found in the descending colon, in the ascending colon and in the cecum secondary to colitis. Biopsied. - Congested mucosa in the terminal ileum. Biopsied. Recommendations : - Discharge patient to home. - Resume previous diet. - Continue present medications. - Await pathology results. - Repeat colonoscopy in 3 years for surveillance. My findings are described in the full procedure note, which is enclosed. If I can be of further assistance, please feel free to contact me at . Sincerely, Goran Natarajan DO 10/22/2022 8:45:25 AM This report has been signed electronically.
--- NOTE | 2022-10-22 08:48 | OP.CCLET_ITS ---
10/22/2022 Ron Ortiz Re : Upper GI endoscopy procedure for Laura Siddiqui Dear Diana This procedure was performed on Saturday, October 22, 2022. My impressions and recommendations are as follows: Impressions : - LA Grade B reflux esophagitis. Biopsied. - Small hiatal hernia. - Friable gastric mucosa. - Portal hypertensive gastropathy. Biopsied. - Normal second portion of the duodenum. Recommendations : - Discharge patient to home. - Resume previous diet. - Continue present medications. - Await pathology results. My findings are described in the full procedure note, which is enclosed. If I can be of further assistance, please feel free to contact me at . Sincerely, Goran Natarajan, 10/22/2022 8:48:24 AM This report has been signed electronically.
--- NOTE | 2022-10-22 08:48 | OP.EGD_ITS ---
Patient Name: Laura Siddiqui Procedure Date: 10/22/2022 7:45 AM Date of : 1955 Age: 67 Procedure: Upper GI endoscopy Indications: Epigastric abdominal pain, Suspected esophageal reflux Providers: Goran Natarajan DO Medicines: Monitored Anesthesia Care Patient Profile: This is a 67 year old female. Refer to note in patient chart for documentation of history and physical. Patient has symptoms of acute global abdominal pain. Complications: No immediate complications. Procedure: Pre-Anesthesia Assessment: - Prior to the procedure, a History and Physical was performed, and patient medications and allergies were reviewed. The risks and benefits of the procedure and the sedation options and risks were discussed with the patient. All questions were answered and informed consent was obtained. Patient identification and proposed procedure were verified by the physician in the pre-procedure area. Mental Status Examination: alert and oriented. Respiratory Examination: clear to auscultation. CV Examination: normal. Prophylactic Antibiotics: The patient does not require prophylactic antibiotics. Prior Anticoagulants: The patient has taken no previous anticoagulant or antiplatelet agents. After reviewing the risks and benefits, the patient was deemed in satisfactory condition to undergo the procedure. The anesthesia plan was to use monitored anesthesia care (MAC). Immediately prior to administration of medications, the patient was re-assessed for adequacy to receive sedatives. The heart rate, respiratory rate, oxygen saturations, blood pressure, adequacy of pulmonary ventilation, and response to care were monitored throughout the procedure. The physical status of the patient was re-assessed after the procedure. After obtaining informed consent, the endoscope was passed under direct vision. Throughout the procedure, the patient's blood pressure, pulse, and oxygen saturations were monitored continuously. The colonoscope was introduced through the mouth, and advanced to the second part of duodenum. The upper GI endoscopy was accomplished without difficulty. The patient tolerated the procedure well. Scope In: 7:55:35 AM Scope Out: 8:00:46 AM Total Procedure Duration Time 0 hours 5 minutes 11 seconds Findings: LA Grade B (one or more mucosal breaks greater than 5 mm, not extending between the tops of two mucosal folds) esophagitis with no bleeding was found 35 to 37 cm from the incisors. Biopsies were taken with a cold forceps for histology. Verification of patient identification for the specimen was done. Estimated blood loss was minimal. A small hiatal hernia was present. Patchy mildly friable mucosa with contact bleeding was found in the cardia, in the gastric fundus and in the gastric body. Mild portal hypertensive gastropathy was found in the gastric body. Biopsies were taken with a cold forceps for histology. Verification of patient identification for the specimen was done. Estimated blood loss was minimal. The second portion of the duodenum was normal. Impression: - LA Grade B reflux esophagitis. Biopsied. - Small hiatal hernia. - Friable gastric mucosa. - Portal hypertensive gastropathy. Biopsied. - Normal second portion of the duodenum. Recommendation: - Discharge patient to home. - Resume previous diet. - Continue present medications. - Await pathology results. Procedure Code(s): --- Professional --- 65241, Esophagogastroduodenoscopy, flexible, transoral; with biopsy, single or multiple CPT copyright 2017 [employer]. All rights reserved. The codes documented in this report are preliminary and upon kidney puller review may be revised to meet current compliance requirements. Goran Natarajan DO 10/22/2022 8:48:24 AM This report has been signed electronically. Number of Addenda: 0 Note Initiated On: 10/22/2022 7:45 AM
== END 2022-10-22 09:31 | disposition home or self-care (01) ==
LOC: EN 06:29 → AC 06:30
PROVIDERS: PCP Family Medicine; Referring Provider Family Medicine; Visit Provider Internal Medicine Gastroenterology
PROC: 0DJD8ZZ Inspection of Lower Intestinal Tract, Via Natural or Artificial Opening Endoscopic (ICD-10-PCS; CPT 45378; principal; 2022-10-22 07:40)
DX: D12.3 Benign neoplasm of transverse colon (principal); K76.6 Portal hypertension; Z68.43 Body mass index [BMI] 50.0-59.9, adult; E11.9 Type 2 diabetes mellitus without complications; K29.50 Unspecified chronic gastritis without bleeding; K21.00 Gastro-esophageal reflux disease with esophagitis, without bleeding; K64.9 Unspecified hemorrhoids; K63.89 Other specified diseases of intestine; K31.89 Other diseases of stomach and duodenum; K44.9 Diaphragmatic hernia without obstruction or gangrene; K57.30 Diverticulosis of large intestine without perforation or abscess without bleeding; K62.1 Rectal polyp; K76.0 Fatty (change of) liver, not elsewhere classified; E66.9 Obesity, unspecified; I10 Essential (primary) hypertension; F41.9 Anxiety disorder, unspecified; F32.A Depression, unspecified; Z86.16 Personal history of COVID-19; Z79.82 Long term (current) use of aspirin; Z79.84 Long term (current) use of oral hypoglycemic drugs; Z79.899 Other long term (current) drug therapy
CPT/HCPCS: 43239; 45381; 45380; 82962; 88305; 88313; 88342; J7120; A4648; J2405

== ENCOUNTER → 2022-11-07 | Outpatient (CLI) | payer MEDICARE, SELFPAY ==
[2022-11-07 10:25] LABS: Absolute Lymphocyte Count 2.07 X10^3/uL (0.83-4.51); Absolute Neutrophil Count 4.5 X10^3/uL (2.0-7.7); Basophil# 0.04 X10^3/uL; Basophil% 0.6 % (0-1); Eosinophil# 0.08 X10^3/uL; Eosinophils% 1.1 % (0-5); Hematocrit 47.3 % (37-47); Lymphocyte # 2.07 X10^3/ul (0.83-4.51); Lymphocyte % 28.9 % (19-41); Mean Corp Hgb Conc 31.7 g/dL (32-36); Mean Corpuscular Hgb 28.5 pg (27.0-32.0); Mean Corpuscular Volume 89.8 fL (81-99); Mean Platelet Vol. 9.9 fl (6.2-12.0); Monocyte# 0.43 X10^3/uL; NRBC Flagged by Analyzer 0 % (0-5); Neutrophil # 4.52 X10^3/uL (2.7-7.7); Platelet Count 225 K/mm3 (150-450); RBC Distribution Width CV 13.7 % (11.6-14.6); RBC Distribution Width SD 44.9 fl (35.1-43.9); Red Blood Count 5.27 M/mm3 (4.2-5.4); White Blood Count 7.2 K/mm3 (4.4-11.0)
[2022-11-07 10:37] LABS: International Normalized Ratio 0.9; Prothrombin Time (Protime)PT. 11.4 SECONDS (11.7-14.9)
[2022-11-07 11:00] LABS: ALB/GLOB Ratio 0.9 RATIO (0.9-2.4); AST(SGOT) 22 U/L (15-37); Alanine Aminotransfer ALT/SGPT 40 U/L (13-56); Albumin, Serum 3.7 g/dL (3.2-5.0); Alkaline Phosphatase 74 U/L (45-117); Anion Gap 6 (5-15); BUN 23 mg/dL (7-18); BUN/Creat Ratio 28.5 RATIO (10-20); Calcium,Total 9.3 mg/dL (8.5-10.1); Chloride 102 mmol/L (98-107); Creatinine, Serum 0.81 mg/dL (0.55-1.02); EST Glomerular Filtration Rate 75 mL/min (>60); Est Glom Filt Rate - Afr Amer 91 mL/min (>60); Ferritin 35 ng/mL (8-252); Globulin 3.9 g/dL (2.2-4.2); Glucose 183 mg/dL (74-106); LDH 208 U/L (84-246); Potassium 3.6 mmol/L (3.5-5.1); Protein, Total 7.6 g/dL (6.4-8.2); Sodium Level 138 mmol/L (136-145)
[2022-11-07 11:05] LABS: Hemoglobin A1c 6.9 % (3.8-5.6)
[2022-11-09 09:19] LABS: Anti-Mitochondrial AB <20.0 Units (0.0-20.0)
[2022-11-12 02:50] LABS: Angiotensin Convert Enzyme 82 U/L (14-82); Ceruloplasmin 26.5 mg/dL (19.0-39.0); HEPATITIS B SURFACE AG Negative (Negative); Hep C Antibodies <0.1 s/co ratio (0.0-0.9); Hepatitis A IgM Antibody Negative (Negative); Hepatitis B Core AB IgM Negative (Negative)
[2022-11-12 20:03] LABS: AFP, Tumor Marker 4.1 ng/mL (0.0-9.2); Anti-Smooth Muscle ABS 5 Units (0-19); Copper, Serum or Plasma 113 ug/dL (80-158); Haptoglobin 158 mg/dL (37-355)
== END | disposition home or self-care (01) ==
LOC: LAB 10:09
PROVIDERS: PCP Family Medicine; Referring Provider Nurse Practitioner Adult Health; Visit Provider Nurse Practitioner Adult Health
DX: E78.2 Mixed hyperlipidemia (principal); K76.6 Portal hypertension; E11.65 Type 2 diabetes mellitus with hyperglycemia; K76.0 Fatty (change of) liver, not elsewhere classified; K31.89 Other diseases of stomach and duodenum; K58.9 Irritable bowel syndrome, unspecified; R10.9 Unspecified abdominal pain
CPT/HCPCS: 36415; 80053; 80074; 82105; 82140; 82164; 82390; 82525; 82728; 83010; 83036; 83516; 83615; 85025; 85610

== ENCOUNTER → 2022-11-18 | Outpatient (CLI) | payer MEDICARE, SELFPAY ==
--- NOTE | 2022-11-18 09:25 | US_ITS ---
STUDY: ABDOMINAL ULTRASOUND - RIGHT UPPER QUADRANT REASON FOR VISIT: Female, 67 years old fatty liver, portal hypertensive gastropathy -- RUQ TECHNIQUE: Ultrasound evaluation of the right upper quadrant was performed with real-time and static humphreys-scale imaging. TECHNICAL QUALITY: Adequate. COMPARISON: None. FINDINGS: Liver: The liver is enlarged and measures 22.1 cm. There is increased echogenicity consistent with fatty infiltration. The bile ducts are within normal limits. There is hepatic color flow. The direction of portal flow is hepatopetal. There is no demonstrated mass lesion. Gallbladder: The patient is status post cholecystectomy. Common Bile Duct (C.B.D.): The common bile duct measures 6.7 mm. Pancreas: Normal size of the head, body of the pancreas. The tail portion is obscured due to overlying bowel gas. There is normal echogenicity of the pancreas. There is no demonstrated pancreatic mass or cyst. Right Kidney: Normal size of the right kidney. The right kidney measures 13.5 cm x 7.4 cm x 5.0 cm. Normal renal cortex. The right cortex measures 1.8 cm. There is no demonstrated renal mass or cyst. There is no right hydronephrosis. US/Abdomen Limited IMPRESSION: Hepatomegaly and diffuse fatty infiltration of the liver. Electronically Signed: Zeyad Neri MD at 14:52 EST ,
--- NOTE | 2022-11-18 09:25 | US_ITS ---
STUDY: ABDOMINAL ULTRASOUND - ELASTOGRAPHY REASON FOR VISIT: Female, 67 years old. Fatty infiltration of the liver. TECHNIQUE: Liver stiffness measurements were obtained on a [employer] RS 85 ultrasound machine using a CA 1-7 probe following the SRU guidelines. 3 measurements were obtained using a 2-D-SWE method. The IQR/M was 21 % suggesting a quality data set. TECHNICAL QUALITY: Adequate. COMPARISON: None. FINDINGS: Liver: Fatty infiltration of the liver. Median liver stiffness measured 7.8 kPa. US/Elastography Parenchyma/Organ IMPRESSION: Liver stiffness measures 7.8 kPa compatible with F2-F3 (Mild to moderate liver fibrosis) Metavir score. Electronically Signed: Zeyad Neri MD at 14:50 EST ,
== END | disposition home or self-care (01) ==
LOC: US 09:24
PROVIDERS: PCP Family Medicine; Referring Provider Nurse Practitioner Adult Health; Visit Provider Nurse Practitioner Adult Health
DX: K76.0 Fatty (change of) liver, not elsewhere classified (principal); K76.6 Portal hypertension; K31.89 Other diseases of stomach and duodenum
CPT/HCPCS: 76705; 76981

== ENCOUNTER 2022-12-18 08:15 | Outpatient (RCR) | payer MEDICARE, SELFPAY | END 2023-01-16 23:59 | LOC: DC 08:15 | PROVIDERS: PCP Family Medicine; Referring Provider Nurse Practitioner Adult Health; Visit Provider Nurse Practitioner Adult Health | DX: E11.9 Type 2 diabetes mellitus without complications (principal); E66.01 Morbid (severe) obesity due to excess calories; Z68.43 Body mass index [BMI] 50.0-59.9, adult | CPT/HCPCS: 97802 ==

== ENCOUNTER 2023-01-29 13:21 | Outpatient (RCR) | payer MEDICARE, SELFPAY | END 2023-02-15 23:59 | LOC: DC 13:21 | PROVIDERS: PCP Family Medicine; Referring Provider Nurse Practitioner Adult Health; Visit Provider Nurse Practitioner Adult Health | DX: E11.9 Type 2 diabetes mellitus without complications (principal); E66.01 Morbid (severe) obesity due to excess calories; Z68.43 Body mass index [BMI] 50.0-59.9, adult | CPT/HCPCS: 97803 ==

== ENCOUNTER → 2023-11-23 | Outpatient (CLI) | payer MEDICARE, MEDICAID, SELFPAY ==
--- NOTE | 2023-11-23 09:52 | US_ITS ---
STUDY: ABDOMINAL ULTRASOUND - RIGHT UPPER QUADRANT; ELASTOGRAPHY REASON FOR VISIT: Female, 68 years old. KOTHARI TECHNIQUE: Ultrasound evaluation of the right upper quadrant was performed with real-time and static humphreys-scale imaging. Point quantification shear wave elastography was performed ([employer]). TECHNICAL QUALITY: Adequate. COMPARISON: Comparison is made with prior study dated May 18, 2023. FINDINGS: Liver: The liver is enlarged and measures 20.5 cm. There is increased echogenicity consistent with fatty infiltration. The bile ducts are within normal limits. There is hepatic color flow. The direction of portal flow is hepatopetal. There is no demonstrated mass lesion. Median liver stiffness measured 5.9 kPa. Gallbladder: The patient is status post cholecystectomy. Common Bile Duct (C.B.D.): The common bile duct measures 6.2 mm. Pancreas: There is normal echogenicity of the visualized pancreas. There is no demonstrated pancreatic mass or cyst. Right Kidney: Normal size of the right kidney. The right kidney measures 12.2 cm x 6.1 cm x 4.9 cm. Normal renal cortex. The right cortex measures 1.1 cm. There is no demonstrated renal mass or cyst. There is no right hydronephrosis. US/ABD Limited w/ Elastography IMPRESSION: 1. Liver stiffness measures 5.9 kPa compatible with F2-F3 (Mild to moderate liver fibrosis) Metavir score. Electronically Signed: Zeyad Neri MD at 13:59 EST ,
[2023-11-23 11:05] LABS: Erythrocyte Sedimentation Rate 8 mm/hr (0-30)
[2023-11-23 11:18] LABS: Absolute Lymphocyte Count 2.12 X10^3/uL (0.83-4.51); Absolute Neutrophil Count 3.6 X10^3/uL (2.0-7.7); Basophil# 0.04 X10^3/uL; Basophil% 0.6 % (0-1); Eosinophil# 0.14 X10^3/uL; Eosinophils% 2.2 % (0-5); Hemoglobin 14.6 g/dL (12.0-15.0); Lymphocyte # 2.12 X10^3/ul (0.83-4.51); Lymphocyte % 32.7 % (19-41); Mean Corp Hgb Conc 31.1 g/dL (32-36); Mean Corpuscular Hgb 28.6 pg (27.0-32.0); Mean Platelet Vol. 10.5 fl (6.2-12.0); Monocyte# 0.53 X10^3/uL; Monocyte% 8.2 % (0-10); NRBC Flagged by Analyzer 0 % (0-5); Neutrophil # 3.63 X10^3/uL (2.7-7.7); Platelet Count 225 K/mm3 (150-450); Red Blood Count 5.11 M/mm3 (4.2-5.4); White Blood Count 6.5 K/mm3 (4.4-11.0)
[2023-11-23 11:33] LABS: ALB/GLOB Ratio 0.9 RATIO (0.9-2.4); AST(SGOT) 21 U/L (15-37); Alanine Aminotransfer ALT/SGPT 27 U/L (13-56); Albumin, Serum 3.5 g/dL (3.2-5.0); Alkaline Phosphatase 68 U/L (45-117); Anion Gap 4 (5-15); BUN 23 mg/dL (7-18); BUN/Creat Ratio 30.9 RATIO (10-20); CRP 8.05 mg/L (0.0-3.0); Calcium,Total 9.3 mg/dL (8.5-10.1); Chloride 105 mmol/L (98-107); Cholesterol 301 mg/dL (200); Creatinine, Serum 0.74 mg/dL (0.55-1.02); EST Glomerular Filtration Rate 82 mL/min (>60); Est Glom Filt Rate - Afr Amer 100 mL/min (>60); Glucose 197 mg/dL (74-106); High Density Lipoprotein 45 mg/dL; Protein, Total 7.5 g/dL (6.4-8.2); Sodium Level 136 mmol/L (136-145); Triglycerides 439 mg/dL
[2023-11-23 11:35] LABS: Vitamin D,25 Hydroxy 38.5 ng/mL
[2023-11-23 11:39] LABS: International Normalized Ratio 0.9; Prothrombin Time (Protime)PT. 12.4 SECONDS (11.7-14.9)
[2023-11-23 11:45] LABS: Hemoglobin A1c 6.9 % (3.8-5.6)
[2023-11-24 04:07] LABS: AFP, Tumor Marker 4.5 ng/mL (0.0-9.2)
== END | disposition home or self-care (01) ==
PROVIDERS: PCP Family Medicine; Referring Provider Internal Medicine; Visit Provider Internal Medicine
DX: K75.81 Nonalcoholic steatohepatitis (NASH) (principal); E66.01 Morbid (severe) obesity due to excess calories; Z68.43 Body mass index [BMI] 50.0-59.9, adult; E11.9 Type 2 diabetes mellitus without complications; E78.2 Mixed hyperlipidemia; K29.50 Unspecified chronic gastritis without bleeding
CPT/HCPCS: 36415; 76705; 76981; 80053; 80061; 82105; 82306; 83036; 85025; 85610; 85652; 86140

== ENCOUNTER → 2024-02-17 | Outpatient (CLI) | payer MEDICARE, MEDICAID, SELFPAY ==
[2024-02-17 12:14] LABS: Erythrocyte Sedimentation Rate 5 mm/hr (0-30)
[2024-02-17 12:16] LABS: Absolute Lymphocyte Count 1.79 X10^3/uL (0.83-4.51); Absolute Neutrophil Count 3.7 X10^3/uL (2.0-7.7); Basophil# 0.03 X10^3/uL; Basophil% 0.5 % (0-1); Eosinophils% 1.6 % (0-5); Hematocrit 46.1 % (37-47); Hemoglobin 14.4 g/dL (12.0-15.0); Lymphocyte # 1.79 X10^3/ul (0.83-4.51); Mean Corp Hgb Conc 31.2 g/dL (32-36); Mean Corpuscular Hgb 28.6 pg (27.0-32.0); Mean Corpuscular Volume 91.7 fL (81-99); Monocyte# 0.55 X10^3/uL; Monocyte% 8.9 % (0-10); NRBC Flagged by Analyzer 0 % (0-5); Neutrophil # 3.69 X10^3/uL (2.7-7.7); Neutrophil % 59.7 % (47-70); Platelet Count 221 K/mm3 (150-450); RBC Distribution Width CV 13.7 % (11.6-14.6); RBC Distribution Width SD 46.1 fl (35.1-43.9); Red Blood Count 5.03 M/mm3 (4.2-5.4); White Blood Count 6.2 K/mm3 (4.4-11.0)
[2024-02-17 12:26] LABS: ALB/GLOB Ratio 1.2 RATIO (0.9-2.4); AST(SGOT) 17 U/L (15-37); Alanine Aminotransfer ALT/SGPT 21 U/L (13-56); Albumin, Serum 3.5 g/dL (3.2-5.0); Alkaline Phosphatase 65 U/L (45-117); Anion Gap 3 (5-15); BUN 23 mg/dL (7-18); BUN/Creat Ratio 31.3 RATIO (10-20); CRP 3.77 mg/L (0.0-3.0); Calcium,Total 9.1 mg/dL (8.5-10.1); Chloride 107 mmol/L (98-107); Creatinine, Serum 0.73 mg/dL (0.55-1.02); EST Glomerular Filtration Rate 84 mL/min (>60); Est Glom Filt Rate - Afr Amer 101 mL/min (>60); Glucose 173 mg/dL (74-106); Potassium 4.5 mmol/L (3.5-5.1); Protein, Total 6.5 g/dL (6.4-8.2); Sodium Level 140 mmol/L (136-145)
[2024-02-17 12:27] LABS: International Normalized Ratio 0.9; Prothrombin Time (Protime)PT. 11.6 SECONDS (11.7-14.9)
[2024-02-17 12:33] LABS: Cholesterol 273 mg/dL (200); High Density Lipoprotein 41 mg/dL; Triglycerides 290 mg/dL; Very Low Density Lipoprotein 58 mg/dL (5-40)
[2024-02-17 13:32] LABS: Hemoglobin A1c 6.3 % (3.8-5.6)
[2024-02-18 05:07] LABS: Complement C3 165 mg/dL (82-167)
[2024-02-18 12:09] LABS: Anti-dsDNA Ab 2 IU/mL (0-9)
[2024-02-18 18:07] LABS: ANTINUCLEAR ANTIBODIES DIRECT Negative (Negative)
== END | disposition home or self-care (01) ==
LOC: BIMLAB 09:58
PROVIDERS: Internal Medicine; PCP Family Medicine; Visit Provider Internal Medicine
DX: M32.9 Systemic lupus erythematosus, unspecified (principal); E66.01 Morbid (severe) obesity due to excess calories; Z68.43 Body mass index [BMI] 50.0-59.9, adult; E11.65 Type 2 diabetes mellitus with hyperglycemia; K75.81 Nonalcoholic steatohepatitis (NASH); K58.9 Irritable bowel syndrome, unspecified; E78.5 Hyperlipidemia, unspecified
CPT/HCPCS: 36415; 80053; 80061; 83036; 85025; 85610; 85652; 86038; 86140; 86160; 86225; 86235

== ENCOUNTER → 2024-07-11 | Outpatient (CLI) | payer MEDICARE, MEDICAID, SELFPAY ==
[2024-07-11 12:14] LABS: Prothrombin Time (Protime)PT. 13.3 SECONDS (11.7-14.9)
[2024-07-11 12:31] LABS: Hemoglobin A1c 7.1 % (3.8-5.6)
[2024-07-11 13:05] LABS: AST(SGOT) 16 U/L (15-37); Alanine Aminotransfer ALT/SGPT 20 U/L (13-56); Albumin, Serum 3.6 g/dL (3.2-5.0); Alkaline Phosphatase 65 U/L (45-117); Anion Gap 8 (5-15); BUN 20 mg/dL (7-18); BUN/Creat Ratio 26.3 RATIO (10-20); CRP 5.57 mg/L (0.0-3.0); Calcium,Total 9.5 mg/dL (8.5-10.1); Chloride 104 mmol/L (98-107); Cholesterol 274 mg/dL (200); Creatinine, Serum 0.76 mg/dL (0.55-1.02); EST Glomerular Filtration Rate 80 mL/min (>60); Est Glom Filt Rate - Afr Amer 97 mL/min (>60); Globulin 3.7 g/dL (2.2-4.2); Glucose 184 mg/dL (74-106); High Density Lipoprotein 46 mg/dL; Potassium 3.9 mmol/L (3.5-5.1); Protein, Total 7.3 g/dL (6.4-8.2); Sodium Level 138 mmol/L (136-145); Triglycerides 359 mg/dL; Very Low Density Lipoprotein 72 mg/dL (5-40)
[2024-07-12 04:08] LABS: AFP, Tumor Marker 5.1 ng/mL (0.0-9.2)
== END | disposition home or self-care (01) ==
LOC: BIMLAB 09:46
PROVIDERS: PCP Family Medicine; Referring Provider Internal Medicine; Visit Provider Internal Medicine
DX: E11.65 Type 2 diabetes mellitus with hyperglycemia (principal); K75.81 Nonalcoholic steatohepatitis (NASH); K58.1 Irritable bowel syndrome with constipation; E78.2 Mixed hyperlipidemia
CPT/HCPCS: 36415; 80053; 80061; 82105; 83036; 85610; 86140

== ENCOUNTER → 2024-07-25 | Outpatient (CLI) | payer MEDICARE, MEDICAID, SELFPAY ==
--- NOTE | 2024-07-25 09:35 | US_ITS ---
STUDY: ABDOMINAL ULTRASOUND - RIGHT UPPER QUADRANT; ELASTOGRAPHY REASON FOR VISIT: Female, 68 years old. NAFL D TECHNIQUE: Ultrasound evaluation of the right upper quadrant was performed with real-time and static humphreys-scale imaging. Point quantification shear wave elastography was performed ([email or web address]). TECHNICAL QUALITY: Adequate. COMPARISON: Comparison is made with prior study dated November 23, 2023. FINDINGS: Liver: The liver is enlarged and measures 20.7 cm. There is increased echogenicity consistent with fatty infiltration. The bile ducts are within normal limits. There is hepatic color flow. The direction of portal flow is hepatopetal. There is no demonstrated mass lesion. Median liver stiffness measured 6.2 kPa. Gallbladder: The patient is status post cholecystectomy. Common Bile Duct (C.B.D.): The common bile duct measures 6.6 mm. Pancreas: There is normal echogenicity of the visualized pancreas. There is no demonstrated pancreatic mass or cyst. Right Kidney: Normal size of the right kidney. The right kidney measures 12.8 cm x 6.1 cm x 4.7 cm. Normal renal cortex. The right cortex measures 1.8 cm. There is no demonstrated renal mass or cyst. There is no right hydronephrosis. IMPRESSION: 1. Liver stiffness measures 6.2 kPa compatible with F0-F1 (Normal to mild liver fibrosis) Metavir score. 2. Hepatomegaly and fatty infiltration of the liver. Electronically Signed: Zeyad Neri MD at 12:53 EDT , STUDY: ABDOMINAL ULTRASOUND - LEFT UPPER QUADRANT REASON FOR EXAM: Female, 68 years old. NAFLD TECHNIQUE: Transabdominal ultrasound was performed with real-time and static humphreys scale imaging. TECHNICAL QUALITY: Adequate. COMPARISON: None. FINDINGS: Spleen: Borderline splenomegaly. The spleen measures 12.8 cm x 6.1 cm x 4.7 cm. US/ABD Limited w/ Elastography IMPRESSION: Borderline splenomegaly. Electronically Signed: Zeyad Neri MD at 12:54 EDT ,
== END | disposition home or self-care (01) ==
LOC: US 09:35
PROVIDERS: PCP Family Medicine; Referring Provider Internal Medicine; Visit Provider Internal Medicine
DX: K76.0 Fatty (change of) liver, not elsewhere classified (principal); R10.32 Left lower quadrant pain
CPT/HCPCS: 76705; 76981

== ENCOUNTER 2024-11-17 11:33 | Emergency (ER) | payer MEDICARE, MEDICAID, SELFPAY ==
[2024-11-17 11:34] VITALS: BP 223/105; PULSE 105; RESP 16; TEMP 36.8; O2SAT 98; BMI 50.4
--- NOTE | 2024-11-17 11:53 | EKG12_ITS ---
Test Reason : Blood Pressure : */* mmHG Vent. Rate : 91 BPM Atrial Rate : 91 BPM P-R Int : 154 ms QRS Dur : 114 ms QT Int : 388 ms P-R-T Axes : 54 -8 65 degrees QTcB Int : 477 ms Normal sinus rhythm Incomplete left bundle branch block Minimal voltage criteria for LVH, may be normal variant ( Bernard product ) Borderline ECG Confirmed by RHIANNON HART, LIANE ([id number]), acquisitions editor KAVITHA QUINONES ([id number]) on 11/21/2024 6:03:07 AM Referred By: Confirmed By: LIANE JURADO MD
--- NOTE | 2024-11-17 11:53 | RAD_ITS ---
PROCEDURE: CHEST 1 VIEW (PORTABLE) REASON FOR EXAM: Chest pain. TECHNIQUE: AP portable upright view of the chest. COMPARISON: None. FINDINGS: The heart size is normal. The lungs are clear. No pleural effusion or pneumothorax is noted. No acute osseous process is seen. RAD/Chest 1 View (Portable) IMPRESSION: No evidence of acute cardiopulmonary disease. Reading Location: [id number]
--- NOTE | 2024-11-17 12:05 | EX.ED.DYSGE1 ---
HPI <HAILEY Diaz - Last Filed: 11/17/24 14:47> History of Present Illness Chief Complaint: Hypertension Narrative Narrative: Patient is a 69-year-old female with history of lupus, hypertension hyperlipidemia hypertriglyceridemia, diabetes who presents to the emergency department for elevated blood pressure, dizziness as well as left jaw and left shoulder pain. Patient does take losartan 100 mg. Patient states that she went to her PCPs office yesterday and she felt slightly dizzy and her blood pressure was elevated with 180systolic. Patient states this does happen secondary to her history of anxiety. She is also been having some nagging left jaw pain, left shoulder pain has been ongoing however it is relieved with Tylenol. She denies any injury. However she states with her lupus she does have some minor aches and pains consistently. Patient was mostly concerned because of these pains as well as hypertension. Here for evaluation. [facility] <HAILEY Diaz - Last Filed: 11/17/24 14:47> [facility] Medical History Morbid obesity with BMI of 50.0-59.9, adult Vertigo Wears glasses Post-menopausal Diabetes Fatty liver Superfic phlebitis-leg Easy bruising Restless legs Back pain Dietary restriction History of ulceration History of diverticulitis Hypertension Gastric reflux Non-smoker CPAP (continuous positive airway pressure) dependence Leg cramps History of pain when walking History of edema History of echocardiogram History of stress test Cardiology follow-up encounter Chest pain Essential hypertension COVID-19 (06/24/21) Diabetes Seasonal allergies Stomach ulcer GERD (gastroesophageal reflux disease) Fibromyalgia Polycystic ovary Pneumonia Pancreatitis Osteoarthritis Lupus IBS (irritable bowel syndrome) Arthritis Anxiety and depression Insomnia SLE (systemic lupus erythematosus) Home Medications ?Medication ?Instructions ?Recorded ?Last Taken ?Type baclofen 10 mg tablet 10 mg PO TID PRN Spasms 04/23/16 Unknown History cholecalciferol (vitamin D3) 50 2,000 unit PO DAILY 07/07/19 Unknown History mcg (2,000 unit) chewable tablet fish oil-dha-epa 1,200 mg-144 1 ea PO DAILY 07/07/19 Unknown History mg-216 mg capsule multivitamin with minerals 1 ea PO DAILY 07/07/19 Unknown History diclofenac sodium 1 % topical gel 2 gm topical BID PRN Pain 01/29/21 Unknown History etodolac 400 mg tablet 400 mg PO BID PRN Pain 04/25/22 Unknown History Held on 05/07/22. Instructions: until ok with cardiology nefazodone 200 mg tablet 200 mg PO QHS ANXIETY 05/07/22 Unknown History omeprazole 40 mg capsule,delayed 40 mg PO DAILY 12/10/22 Unknown History release vitamin E (dl, acetate) 450 mg 450 mg PO DAILY 06/08/23 Unknown History (1,000 unit) capsule flash glucose scanning reader #1 ea 12/09/23 Unknown Rx (FreeStyle Lesley 2 [place]) flash glucose sensor (FreeStyle #2 ea 12/09/23 Unknown Rx Lesley 2 Sensor kit) fenofibrate nanocrystallized 48 mg 48 mg PO QHS 100 days #100 tabs 04/05/24 Unknown Rx tablet (Tricor) losartan 100 mg tablet 100 mg PO QDAY 04/13/24 Unknown History chlorthalidone 25 mg tablet 25 mg PO QDAY 08/10/24 Unknown History blood sugar diagnostic (OneTouch #180 ea 08/24/24 Unknown Rx Verio test strips) Farxiga 10 mg tablet 10 mg PO DAILY #90 tabs 11/16/24 Unknown Rx (dapagliflozin propanediol) glimepiride 2 mg tablet 3 mg (1.5 x 2 mg) PO DAILY #135 11/16/24 Unknown Rx tabs metformin 1,000 mg tablet 1,000 mg PO BID #180 tabs 11/16/24 Unknown Rx sucralfate 1 gram tablet 1 g PO QACHS PRN 11/16/24 Unknown History Allergy/AdvReac Type Severity Reaction Status Date / Time tizanidine (From Zanaflex) Allergy Intermediate heart Verified 11/16/24 08:37 racing nitrofurantoin Allergy Unknown Verified 11/16/24 08:37 macrocrystalline (From Macrodantin) tramadol HCl (From Ultram) Allergy Swelling Verified 11/16/24 08:37 sitagliptin (From Januvia) AdvReac Severe Nausea Verified 11/16/24 08:37 lisinopril AdvReac Intermediate muscle Verified 11/16/24 08:37 spasms semaglutide (From Ozempic) AdvReac Intermediate constipated Verified 11/16/24 08:37 ciprofloxacin (From Cipro) AdvReac RED URINE Verified 11/16/24 08:37 ciprofloxacin HCl (From AdvReac RED URINE Verified 11/16/24 08:37 Cipro) empagliflozin (From AdvReac stomach Verified 11/16/24 08:37 Jardiance) pain Family History Mother Arthritis Diabetes Heart disease Hypertension High cholesterol Thyroid disorder Lupus Father Liver disease Other Alcohol abuse Anemia Anxiety Asthma Autoimmune disease CVA (cerebral vascular accident) Colon cancer Depression Melanoma Mental disorder Myocardial infarction Psychiatric care Respiratory disease Skin cancer angina ulcer disease Surgical History History of cardiac catheterization Hx of colonoscopy H/O breast biopsy H/O hernia repair H/O: hysterectomy Hx of cholecystectomy Hx of appendectomy Hx of tonsillectomy Social History Smoking Status: Never smoker second hand exposure: No alcohol intake: never substance use type: does not use ROS <HAILEY iDaz - Last Filed: 11/17/24 14:47> ROS ED ROS Narrative Constitutional: Negative for fever, chills, weight loss, weakness Eyes: Negative for vision loss, vision change, double vision ENT: Negative for any sore throat, ear pain, congestion Cardiovascular: Negative for any tightness, palpitations. Positive for left jaw, left shoulder pain Respiratory: Negative for any cough, sputum production, hemoptysis, dyspnea, dyspnea on exertion, orthopnea Gastrointestinal: Negative for any abdominal pain, nausea, vomiting, diarrhea, constipation, blood in stool, blood in vomit : Negative for any urinary frequency, dysuria, retention, blood in urine Muscle skeletal: Negative for any neck pain, back pain Neurological: Negative for any headache, syncope, dizziness Skin: Negative for any rashes, itching, abrasions, lacerations Psychiatric: Negative for any depression, anxiety, stress, suicidal ideation, homicidal ideation Hematologic: Negative for any excessive bruising, easy bleeding EXAM <HAILEY Diaz - Last Filed: 11/17/24 14:47> Physical Exam Narrative Exam Narrative: Vital signs reviewed. Patient's original blood pressure was significantly elevated, this will be reevaluated. HEET: Head normocephalic atraumatic, TMs clear bilaterally. Posterior pharynx is clear, moist mucous membranes. Nares clear bilaterally. Neck: Supple with no lymphadenopathy or tenderness. No signs of meningismus. Cardiac: Regular rate and rhythm no murmurs gallops or rubs, equal peripheral pulses bilaterally. Respiratory: Lungs clear to auscultation bilaterally. No chest tenderness. Abdomen: Soft, nontender, nondistended. No abdominal bruit or pulsatile masses. No hepatosplenomegaly Extremities: No peripheral edema, no signs of gross trauma or deformity. Active full range of motion of all extremities. Neuro: Cranial nerves II through XII intact, no focal neurological deficits. Skin: Clean dry and intact with no rash, purpura, petechiae, vesicles or pustules. Backs/flank: No CVA tenderness, no midline spinal tenderness, no deformity. Psych: Normal mood and affect. No SI, HI or acute psychosis. Const Vital Signs: 11/17/24 11:34 11/17/24 12:18 11/17/24 12:19 Temperature 98.3 F Temperature Source Temporal Pulse Rate 105 H Respiratory Rate 16 Respiratory Effort Normal Non-Labored Respiratory Pattern Normal Blood Pressure 223/105 H Blood Pressure Mean 144 Pulse Ox 98 Oxygen Delivery Method Room Air Room Air 11/17/24 13:12 11/17/24 14:24 Temperature Temperature Source Pulse Rate 74 63 Respiratory Rate 15 Respiratory Effort Respiratory Pattern Blood Pressure 181/89 H 182/82 H Blood Pressure Mean 119 115 Pulse Ox 95 Oxygen Delivery Method Room Air Positive well nourished and obese Nutritional Appearance: obese <Dr. Iglesia Wright MD - Last Filed: 11/17/24 13:31> Physical Exam Const Vital Signs: 11/17/24 11:34 11/17/24 12:18 11/17/24 12:19 Temperature 98.3 F Temperature Source Temporal Pulse Rate 105 H Respiratory Rate 16 Respiratory Effort Normal Non-Labored Respiratory Pattern Normal Blood Pressure 223/105 H Blood Pressure Mean 144 Pulse Ox 98 Oxygen Delivery Method Room Air Room Air 11/17/24 13:12 11/17/24 14:24 Temperature Temperature Source Pulse Rate 74 63 Respiratory Rate 15 Respiratory Effort Respiratory Pattern Blood Pressure 181/89 H 182/82 H Blood Pressure Mean 119 115 Pulse Ox 95 Oxygen Delivery Method Room Air MDM <HAILEY Diaz - Last Filed: 11/17/24 14:47> [facility] Lab Data Labs: Laboratory Results - last 24 hr 11/17/24 11:45 WBC 7.2 RBC 5.31 Hgb 15.6 H Hct 47.8 H MCV 90.0 MCH 29.4 MCHC 32.6 RDW Std Deviation 45.9 H RDW Coeff of Terrence 13.9 Plt Count 228 MPV 9.8 Immature Gran % (Auto) 0.800 Neut % (Auto) 50.0 Lymph % (Auto) 41.4 H [place] % (Auto) 6.0 Eos % (Auto) 1.1 Baso % (Auto) 0.7 Absolute Neuts (auto) 3.6 Absolute Lymphs (auto) 2.98 Nucleated RBC % 0 Sodium 138 Potassium 3.2 L Chloride 102 Carbon Dioxide 28.0 Anion Gap 8 BUN 20 H Creatinine 0.88 Estim Creat Clear Calc 84.96 Est GFR (MDRD) Af Amer 82 Est GFR (MDRD) Non-Af 68 BUN/Creatinine Ratio 22.8 H Glucose 290 H Calcium 9.7 Troponin I High Sens 12 Radiography Diagnostic Testing: Clinical Impression(s) from Imaging Studies Chest X-Ray 11/17/24 11:53 IMPRESSION: No evidence of acute cardiopulmonary disease. Reading Location: [address] EKG Normal sinus rhythm: Attestation: I personally reviewed and interpreted this EKG as follows: Comments: EKG shows a normal sinus rhythm, rate of 91 bpm, OH interval 154 ms, QRS duration 114 ms, no acute ST elevation, there is no acute infarct noted. Treatment and Re-Evaluation :: Differential diagnosis includes however is not limited to: ACS, SC, anxiety, essential hypertension, hypertensive urgency, unstable angina, hypertensive emergency Patient is hypertensive, on my evaluation, patient was slightly anxious. Patient will receive a full cardiac workup including troponin, regular laboratory values. Chest x-ray to be obtained, all radiologic examinations were read, reviewed by the emergency department attending. From these reads, a plan of care will be put in place. Patient's EKG was unremarkable. Patient will be given time to relax, and will have repeat vital signs. Patient's laboratory values showed normal CBC, patient's chemistries show potassium 3.2, slightly low, BUN 20, patient's creatinine is normal at 0.88, glucose is 290, she is diabetic. Patient's troponin was 12. This is negative. EKG was unremarkable. Chest x-ray was negative. Patient blood pressure on repeat was 181/89, 5 mg of IV Lopressor will be given. Patient be reevaluated. At this time, there is no evidence of any ACS or SC. On my repeat evaluation, the patient was reading the paper, patient was in no obvious distress. Patient's blood pressure is 164/74. At this time, there is no evidence of any ACS or SC. There is no evidence of any hypertensive urgency or emergency. Patient will continue to follow-up outpatient, she does have an appointment this upcoming Thursday with her PCP. All questions were answered, patient instructed to return for any worsening symptoms. <Dr. Iglesia Wright MD - Last Filed: 11/17/24 13:31> [facility] Narrative Medical decision making narrative: I have personally performed a face to face assessment of the patient and have reviewed the HENRY Note. I performed a substantive portion of the visit including all aspects of the following. My enamorado findings include: History is 69-year-old female history of hypertension diabetes complaining of atypical jaw and arm discomfort. No chest pain. No dyspnea. No nausea. Denies any back pain. This has been going on for couple of days. Not exertional. No history of DVT or PE. No leg pain or swelling. No hemoptysis. No pleuritic pain. Exam is [well-appearing 69-year-old female. Vital signs are stable. Her initial blood pressure 220/105. Pulse ox 90% on room air no signs hypoxia. No distress. H EENT exam unremarkable. Pupils round reactive light. There is no swelling of her jaw no tenderness to her teeth. No trouble opening closing her mouth. Neck nontender no JVD. Lungs clear to auscultation bilaterally. Heart regular rhythm rate about 90 no murmur. Chest wall is nontender. Ribs are nontender. Abdomen is nontender. Moving all 4 extremities. Normal department of mathematics chair strength. Calves are nontender without edema or cords. Normal dorsi plantarflexion. Equal symmetric radial pulses. Back is nontender. Neurologically she is awake and alert no focal motor deficits. Answering questions following commands.] Medical Decision Making [69-year-old female with atypical jaw and arm pain. Unlikely to be cardiac. She undergo a cardiac workup. Exam is benign.] Other additions or changes: [None] History & Record Review Discussion w/independent historian: Patient and Family Additional record(s) reviewed:: Prior inpatient record, Prior outpatient record, Prior ED visit, Prior labs and No prior records Lab Data Attestation: I reviewed the patient's lab results. Lab results narrative: CBC shows white count of 7 H&H 15 and 47. Platelets 228. Labs: Laboratory Results - last 24 hr 11/17/24 11:45 WBC 7.2 RBC 5.31 Hgb 15.6 H Hct 47.8 H MCV 90.0 MCH 29.4 MCHC 32.6 RDW Std Deviation 45.9 H RDW Coeff of Terrence 13.9 Plt Count 228 MPV 9.8 Immature Gran % (Auto) 0.800 Neut % (Auto) 50.0 Lymph % (Auto) 41.4 H [place] % (Auto) 6.0 Eos % (Auto) 1.1 Baso % (Auto) 0.7 Absolute Neuts (auto) 3.6 Absolute Lymphs (auto) 2.98 Nucleated RBC % 0 Sodium 138 Potassium 3.2 L Chloride 102 Carbon Dioxide 28.0 Anion Gap 8 BUN 20 H Creatinine 0.88 Estim Creat Clear Calc 84.96 Est GFR (MDRD) Af Amer 82 Est GFR (MDRD) Non-Af 68 BUN/Creatinine Ratio 22.8 H Glucose 290 H Calcium 9.7 Troponin I High Sens 12 Radiography Diagnostic Testing: Clinical Impression(s) from Imaging Studies Chest X-Ray 11/17/24 11:53 IMPRESSION: No evidence of acute cardiopulmonary disease. Reading Location: [address] Discharge Plan Triage Chief Complaint: Hypertension ED Midlevel Provider: Fredi Courtney ED Provider: Iglesia Wright Dx/Rx/DC Orders Clinical Impression: Atypical chest pain, Essential hypertension Instructions: ED Chest Pain, Uncertain Cause, ED High Blood Pressure Hypertension Prescriptions: No Action diclofenac sodium 1 % gel 2 gm TOPICAL BID PRN (Reason: Pain) Patient Comments: APPLY 2 GRAMS TOPICALLY TWICE DAILY nefazodone 200 mg tablet 200 mg PO QHS etodolac 400 mg tablet 400 mg PO BID PRN (Reason: Pain) omeprazole 40 mg capsule,delayed release(DR/EC) 40 mg PO DAILY vitamin E (dl, acetate) 450 mg (1,000 unit) capsule 450 mg PO DAILY (DME) FreeStyle Lesley 2 [place] Misc See Rx Instructions .Route Qty: 1 0RF Rx Instructions: As directed (DME) FreeStyle Lesley 2 Sensor Kit See Rx Instructions .Route Qty: 2 5RF Rx Instructions: 1 sensor q 14 days losartan 100 mg tablet 100 mg PO QDAY Farxiga 10 mg tablet 10 mg PO DAILY Qty: 90 3RF metformin 1,000 mg tablet 1,000 mg PO BID Qty: 180 3RF glimepiride 2 mg tablet 3 mg PO DAILY Qty: 135 3RF chlorthalidone 25 mg tablet 25 mg PO QDAY sucralfate 1 gram tablet 1 g PO QACHS PRN baclofen 10 MG tablet 10 mg PO TID PRN (Reason: Spasms) multivitamin with minerals 1 EACH tablet 1 ea PO DAILY fish oil-dha-epa 1 EACH capsule 1 ea PO DAILY cholecalciferol (vitamin D3) 2,000 UNIT tablet,chewable 2,000 unit PO DAILY fenofibrate nanocrystallized [Tricor] 48 mg tablet 48 mg PO QHS 100 Days Qty: 100 3RF (DME) OneTouch Verio test strips Strip See Rx Instructions .ROUTE .MEDSUPPLY Qty: 180 3RF Rx Instructions: BID Primary Care Provider: Ron Ortiz Referrals: Ron Ortiz MD [Primary Care Provider] - Activity Restrictions/Additional Instructions: Please continue to follow-up outpatient. Print Language: Azeri Disposition Disposition: Home, Self Care
[2024-11-17 12:07] LABS: Absolute Lymphocyte Count 2.98 X10^3/uL (0.83-4.51); Absolute Neutrophil Count 3.6 X10^3/uL (2.0-7.7); Basophil# 0.05 X10^3/uL; Basophil% 0.7 % (0-1); Eosinophil# 0.08 X10^3/uL; Eosinophils% 1.1 % (0-5); Hematocrit 47.8 % (37-47); Hemoglobin 15.6 g/dL (12.0-15.0); Lymphocyte # 2.98 X10^3/ul (0.83-4.51); Lymphocyte % 41.4 % (19-41); Mean Corp Hgb Conc 32.6 g/dL (32-36); Mean Corpuscular Hgb 29.4 pg (27.0-32.0); Mean Platelet Vol. 9.8 fl (6.2-12.0); Monocyte# 0.43 X10^3/uL; NRBC Flagged by Analyzer 0 % (0-5); Platelet Count 228 K/mm3 (150-450); RBC Distribution Width CV 13.9 % (11.6-14.6); RBC Distribution Width SD 45.9 fl (35.1-43.9); Red Blood Count 5.31 M/mm3 (4.2-5.4); White Blood Count 7.2 K/mm3 (4.4-11.0)
[2024-11-17 13:12] VITALS: BP 181/89; PULSE 74; RESP 15; O2SAT 95
[2024-11-17 13:23] LABS: Anion Gap 8 (5-15); BUN 20 mg/dL (7-18); BUN/Creat Ratio 22.8 RATIO (10-20); Calcium,Total 9.7 mg/dL (8.5-10.1); Chloride 102 mmol/L (98-107); Creatinine, Serum 0.88 mg/dL (0.55-1.02); EST Glomerular Filtration Rate 68 mL/min (>60); Est Glom Filt Rate - Afr Amer 82 mL/min (>60); Estimated Creatinine Clearance 84.96 ml/min; Glucose 290 mg/dL (74-106); Potassium 3.2 mmol/L (3.5-5.1); Sodium Level 138 mmol/L (136-145); Troponin-I HS 12 pg/mL (3.0-54.0)
[2024-11-17] MEDS: Metoprolol Tartrate 5 MG/5 ML Vial IV (13:43)
[2024-11-17 14:24] VITALS: BP 182/82; PULSE 63
[2024-11-17 15:01] VITALS: BP 147/63; PULSE 58; RESP 16; TEMP 36.8; O2SAT 96
== END 2024-11-17 15:06 | disposition home or self-care (01) ==
PROVIDERS: Nurse Practitioner; Emergency Provider Emergency Medicine; PCP Family Medicine; Visit Provider Emergency Medicine
DX: R07.89 Other chest pain (principal); M32.9 Systemic lupus erythematosus, unspecified; E11.9 Type 2 diabetes mellitus without complications; I10 Essential (primary) hypertension; M25.512 Pain in left shoulder; Z90.49 Acquired absence of other specified parts of digestive tract; Z90.710 Acquired absence of both cervix and uterus; Z86.16 Personal history of COVID-19; Z99.89 Dependence on other enabling machines and devices; E78.5 Hyperlipidemia, unspecified
CPT/HCPCS: 71045; 80048; 84484; 85025; 93005; 96374; 99284; A4216

== ENCOUNTER → 2025-01-17 | Outpatient (CLI) | payer MEDICARE, SELFPAY ==
[2025-01-17 15:37] LABS: Absolute Lymphocyte Count 2.11 X10^3/uL (0.83-4.51); Absolute Neutrophil Count 3.3 X10^3/uL (2.0-7.7); Basophil# 0.03 X10^3/uL; Basophil% 0.5 % (0-1); Eosinophil# 0.06 X10^3/uL; Hematocrit 45.7 % (37-47); Hemoglobin 14.8 g/dL (12.0-15.0); Lymphocyte # 2.11 X10^3/ul (0.83-4.51); Lymphocyte % 34.7 % (19-41); Mean Corp Hgb Conc 32.4 g/dL (32-36); Mean Corpuscular Hgb 29.3 pg (27.0-32.0); Mean Corpuscular Volume 90.5 fL (81-99); Mean Platelet Vol. 11.1 fl (6.2-12.0); Monocyte# 0.53 X10^3/uL; Monocyte% 8.7 % (0-10); NRBC Flagged by Analyzer 0 % (0-5); Neutrophil # 3.32 X10^3/uL (2.7-7.7); Neutrophil % 54.6 % (47-70); Platelet Count 237 K/mm3 (150-450); RBC Distribution Width CV 13.8 % (11.6-14.6); Red Blood Count 5.05 M/mm3 (4.2-5.4); White Blood Count 6.1 K/mm3 (4.4-11.0)
[2025-01-17 15:42] LABS: International Normalized Ratio 0.9; Prothrombin Time (Protime)PT. 11.7 SECONDS (11.7-14.9)
[2025-01-17 17:58] LABS: ALB/GLOB Ratio 1.4 RATIO (0.9-2.4); AST(SGOT) 19 U/L (<=31); Alanine Aminotransfer ALT/SGPT 15 U/L (<=34); Albumin, Serum 4.1 g/dL (3.4-4.8); Alkaline Phosphatase 60 U/L (35-104); Anion Gap 11 (5-15); BUN 17 mg/dL (4-19); Calcium,Total 9.7 mg/dL (7.6-11.0); Carbon Dioxide 24.7 mmol/L (21.0-32.0); Chloride 104 mmol/L (98-108); Cholesterol 286 mg/dL (<=200); Creatinine, Serum 0.67 mg/dL (0.70-1.20); EST Glomerular Filtration Rate 95 (>60); Globulin 2.9 g/dL (2.2-4.2); Glucose 160 mg/dL (70-99); High Density Lipoprotein 44 mg/dL; Low Density Lipoprotein Calc. 174 mg/dL; Potassium 4.2 mmol/L (3.3-5.1); Sodium Level 140 mmol/L (133-145); Total Bilirubin 0.24 mg/dL (0.00-1.30); Triglycerides 338 mg/dL; Very Low Density Lipoprotein 68 mg/dL (5-40); Vitamin D,25 Hydroxy 32.7 ng/mL (30-100); cholesterol:hdl ratio screen 6.47
[2025-01-17 18:03] LABS: CRP < 3.00 mg/L (0.0-3.0)
== END | disposition home or self-care (01) ==
PROVIDERS: PCP Family Medicine; Referring Provider Internal Medicine; Visit Provider Internal Medicine
DX: M81.0 Age-related osteoporosis without current pathological fracture (principal); E66.01 Morbid (severe) obesity due to excess calories; Z68.42 Body mass index [BMI] 45.0-49.9, adult; E11.9 Type 2 diabetes mellitus without complications; K76.0 Fatty (change of) liver, not elsewhere classified; E78.1 Pure hyperglyceridemia; K58.1 Irritable bowel syndrome with constipation; K21.9 Gastro-esophageal reflux disease without esophagitis
CPT/HCPCS: 36415; 80053; 80061; 82306; 85025; 85610; 86140

== ENCOUNTER 2025-04-10 12:49 | Outpatient (RCR) | payer MEDICARE, SELFPAY | END 2025-04-17 23:59 | LOC: NS 12:49 | PROVIDERS: PCP Family Medicine; Referring Provider Internal Medicine; Visit Provider Internal Medicine | DX: Z71.3 Dietary counseling and surveillance (principal); K76.0 Fatty (change of) liver, not elsewhere classified; E78.1 Pure hyperglyceridemia; E66.01 Morbid (severe) obesity due to excess calories; Z68.42 Body mass index [BMI] 45.0-49.9, adult; E78.5 Hyperlipidemia, unspecified; K76.6 Portal hypertension; K31.89 Other diseases of stomach and duodenum; I10 Essential (primary) hypertension; E11.65 Type 2 diabetes mellitus with hyperglycemia | CPT/HCPCS: 97802 ==

== ENCOUNTER → 2025-04-28 | Outpatient (CLI) | payer MEDICARE, SELFPAY ==
[2025-04-28 16:04] LABS: AST(SGOT) 17 U/L (<=31); Alanine Aminotransfer ALT/SGPT 18 U/L (<=34); Albumin, Serum 4.1 g/dL (3.4-4.8); Alkaline Phosphatase 53 U/L (35-104); Anion Gap 11 (5-15); BUN 27 mg/dL (4-19); BUN/Creat Ratio 33.2 RATIO (10-20); CRP < 3.00 mg/L (0.0-3.0); Calcium,Total 10.1 mg/dL (7.6-11.0); Carbon Dioxide 24.8 mmol/L (21.0-32.0); Chloride 103 mmol/L (98-108); Globulin 2.9 g/dL (2.2-4.2); Glucose 134 mg/dL (70-99); Potassium 4.4 mmol/L (3.3-5.1)
[2025-04-28 16:19] LABS: Hematocrit 43.9 % (37-47); Hemoglobin 14.1 g/dL (12.0-15.0); Immature Granulocytes Count 0.020 X10^3/uL (0.0-0.0); Mean Corp Hgb Conc 32.1 g/dL (32-36); Mean Corpuscular Volume 92.2 fL (81-99); Mean Platelet Vol. 12.0 fl (6.2-12.0); NRBC Flagged by Analyzer 0 % (0-5); Platelet Count 205 K/mm3 (150-450); RBC Distribution Width CV 14.0 % (11.6-14.6); RBC Distribution Width SD 47.5 fl (35.1-43.9); Red Blood Count 4.76 M/mm3 (4.2-5.4); White Blood Count 6.5 K/mm3 (4.4-11.0)
--- OUTSIDE RECORDS SUMMARY | 2025-04-28 19:54 | XMS RPT_ITS | CCD ---
Author Organization [facility] CliniSypr Care Team Providers Care Retail Coverage Merchandiser Lead Name Role Phone Shauna Macedo NP Unavailable Nena Bennett LPN Unavailable Unavailable Nena Bennett LPN Unavailable Unavailable Genie Godinez Unavailable Unavailable Valentin Arredondo Unavailable Unavailable Valentin Arredondo Unavailable Unavailable Unavailable Ron Duenas MD Primary Care Provider Dr. Valentin Arredondo Primary Care Provider Dr. Valentin Arredondo Referring Provider HAILEY Lima Attending Provider Dr. Ron Duenas Primary Care Provider Dr. Ron Duenas Other Provider Dr. Dennis Ludwig Attending Provider [phone] Un[address] Ron Duenas Referring Provider Ron Duenas MD Primary Care Provider Ron Duenas MD Primary Care Provider Dr. Ron Duenas Primary Care Provider Dr. Ron Duenas Referring Provider Dr. Dennis Ludwig Attending Provider Dr. Dennis Ludwig Referring Provider [phone] Valentin Arredondo Referring Provider HAILEY Lima Attending Provider Ramon WAGNER, HAILEY Salinas Attending Provider [phone] Yulissa, Dr. Velasquez Primary Care Provider Yulissa, Dr. Velasquez Referring Provider Yulissa, Dr. Velasquez Primary Care Provider Friend, Dr. Zimmer Attending Provider [phone] Friend, Dr. Zimmer Other Provider [phone] Ron Duenas MD Primary Care Provider Yulissa, Dr. Velasquez Primary Care Provider [place], Dr. Velasquez Referring Provider Friend, Dr. Zimmer Attending Provider [phone] Friend, Dr. Zimmer Other Provider [phone] Ramon RECOVERY SPECIALIST, KRISTY-Melva Salinas Attending Provider [phone] HAILEY Lima Attending Provider Yulissa, Dr. Ron Byrd Referring Unavail able [place], Dr. Ron Byrd Primary Care Unavail able Genie Godinez Attending Unavailable Genie Godinez Attending Unavailable [place], Dr. Ron Byrd Referring Unavail able [place], Dr. Ron Byrd Primary Care Unavail Ron Paez MD Primary Care Provider YULISSA, RON BYRD Primary Care Unavailable Yulissa, Dr. Velasquez Primary Care Provider [place], Dr. Velasquez Referring Provider Dr. Myke Bowers Attending Provider Ron Duenas MD Primary Care Provider Genie Godinez MD Unavailable Ron Duenas MD Primary Care Provider Yulissa, Dr. Velasquez Primary Care Provider Yulissa, Dr. Velasquez Referring Provider Dr. Myke Bowers Attending Provider HAILEY Lima Attending Provider Gisella EDUCATION OFFICER.APPEALS BOARD REFEREE, Mel Unavailable Suppan EDUCATION OFFICER.APPEALS BOARD REFEREE, Brenda A Unavailable GENIE GODINEZ Attending Unavailable YULISSA, RON BYRD Primary Care Unavailable Suppan EDUCATION OFFICER.APPEALS BOARD REFEREE, Brenda A Unavailable Dr. Ron Duenas MD Primary Care Provider Dr. Ron Duenas MD Referring Provider Clarence WAGNER-CWendy Attending Provider Kyle HART, Dr. Parekh Attending Provider Kyle HART, Dr. Parekh Emergency Provider Robinson HART, Dr. Stringer Attending Provider Robinson HART, Dr. Stringer Referring Provider SUPPFRENCH, BRENDA A Attending Unavailable YULISSA, RON Eng Primary Care Unavailable SUPPFRENCH, BRENDA A Referring Unavailable YULISSA, RON Eng Primary Care Unavailable YULISSA, RON Eng Primary Care Unavailable YULISSA, RON Eng Primary Care Unavailable TERRANCE SIMONS Referring Unavailable SUPPAN, BRENDA A Referring Unavailable YULISSA, RON Eng Primary Care Unavailable YULISSA, RON Eng Primary Care Unavailable JILL, AGNIESZKA Referring Unavailable YULISSA, RON Eng Primary Care Unavailable JILL, AGNIESZKA Attending Unavailable JILL, AGNIESZKA Referring Unavailable SUPPAN, BRENDA A Attending Unavailable YULISSA, RON Eng Primary Care Unavailable SUPPAN, BRENDA A Referring Unavailable YULISSA, RON Eng Primary Care Unavailable YULISSA, RON Eng Primary Care Unavailable SUPPAN, BRENDA A Attending Unavailable YULISSA, RON Eng Primary Care Unavailable DARREL CONTRERAS Attending Unavailable DARREL CONTRERAS Referring Unavailable YULISSA, RON Eng Primary Care Unavailable YULISSA, RON Eng Attending Unavailable YULISSA, RON J Referring Unavailable YULISSA, RON Eng Primary Care Unavailable Yulissa HART, Dr. eVlasquez Primary Care Provider Dr. Ron Duenas MD Referring Provider Yulissa, Ron Referring Unavailable Myke Bowers Attending Unavailable [place], Ron Primary Care Unavailable Wendy Lima Attending Unavailable [place], Ron Referring Unavailable [place], Ron Primary Care Unavailable Carson Kaba Attending Unavailable [place], Ron Referring Unavailable [place], Ron Primary Care Unavailable Iglesia Wright Attending Unavailable Yulissa, Ron Primary Care Unavailable Robinson, Myke Attending Unavailable Robinson, Myke Referring Unavailable [place], Ron Primary Care Unavailable Robinson, Myke Attending Unavailable Robinson, Myke Referring Unavailable [place], Ron Primary Care Unavailable Robinson, Myke Referring Unavailable Robinson, Myke Attending Unavailable [place], Ron Primary Care Unavailable Robinson, Myke Referring Unavailable [place], Ron Primary Care Unavailable Robinson, Myke Attending Unavailable Robinson, Myke Referring Unavailable Robinson, Myke Attending Unavailable Yulissa, Ron Primary Care Unavailable Robinson, Myke Attending Unavailable Yulissa, Ron Referring Unavailable [place], Ron Primary Care Unavailable Robinson, Myke Attending Unavailable Yulissa, Ron Primary Care Unavailable Yulissa, Ron Referring Unavailable Genie Godinez MD Unavailable Allergies Allergy Classification Reported Allergen(s) Allergy Type Date of Onset Reaction(s) Facility Nitrofurantoin (3 sources) Nitrofurantoin; Translations: [Macrodantin] Drug Allergy [facility] Work Phone: Opioid Agonists (3 sources) traMADol; Translations: [Ultram] Drug Allergy [facility] Work Phone: Quinolones (antibiotic) (3 sources) Ciprofloxacin; Translations: [Cipro TABS] Drug Allergy [facility] Work Phone: SITagliptin (3 sources) SITagliptin; Translations: [Januvia TABS] Drug Allergy [facility] Work Phone: tiZANidine (3 sources) tiZANidine; Translations: [tizanidine] Drug Allergy [facility] Work Phone: (3 sources) Ciprofloxacin Drug Allergy 01-09-20 [facility] Work Phone: (8 sources) Nitrofurantoin Drug Allergy 01-09-20 [facility] Work Phone: (8 sources) traMADol Drug Allergy 01-09-20 [facility] Work Phone: (20 sources) Ciprofloxacin; Translations: [Cipro TABS] Drug Allergy 10-26-19 15 Other: See Comments, Other [facility] (20 sources) SITagliptin; Translations: [Januvia TABS] Drug Allergy 02-23-20 18 GI Upset [facility] (20 sources) tiZANidine; Translations: [tizanidine] Drug Allergy 01-11-20 20 Unknown, Other, Anxiety, Palpitations [facility] (20 sources) Nitrofurantoin; Translations: [Macrodantin] Drug Allergy 11-20-19 06 [facility] (20 sources) traMADol; Translations: [Ultram] Drug Allergy 01-08-20 13 Other, Swelling -[facility] Work Phone: (20 sources) empagliflozin; Translations: [EMPAGLIFLOZIN] Drug Allergy 05-04-20 19 Intolerance, Palpitations [facility] (20 sources) semaglutide; Translations: [SEMAGLUTIDE] Drug Allergy 09-17-20 21 Unknown [facility] (20 sources) traMADol; Translations: [TRAMADOL HCL] Drug Allergy 01-08-20 13 Swelling [facility] Work Phone: (15 sources) Ciprofloxacin; Translations: [ciprofloxacin HCl] Drug Allergy 12-05-19 22 RED URINE [facility] (3 sources) glimepiride Drug Allergy 12-05-19 22 stomach pain [facility] Work Phone: (14 sources) Lisinopril Drug Allergy 12-05-19 22 muscle spasms [facility] (15 sources) nitrofurantoin macrocrystalline; Translations: [nitrofurantoin macrocrystalline] Allergy to substance 12-05-19 22 Unknown [facility] (20 sources) Pravastatin; Translations: [PRAVASTATIN] Drug Allergy 08-25-20 22 Myalgia [facility] Work Phone: (5 sources) Nitrofurantoin; Translations: [NITROFURANTOIN MACROCRYSTAL] Drug Allergy 08-18-20 23 Other [facility] Work Phone: (4 sources) Ciprofloxacin; Translations: [CIPROFLOXACIN] Drug Allergy 10-26-[address] [facility] (4 sources) SITagliptin; Translations: [SITAGLIPTIN] Drug Allergy 02-23-[address] [facility] (2 sources) traMADol; Translations: [TRAMADOL] Drug Allergy 01-08-[address] [facility] (14 sources) Chlorthalidone; Translations: [CHLORTHALIDONE] Drug Allergy 08-15-20 24 Unknown, Other [facility] Work Phone: (1 source) Nitrofurantoin; Translations: [NITROFURANTOIN] Drug Allergy 11-20-19 06 [facility] (1 source) empagliflozin Drug Allergy 11-16-19 25 [facility] (1 source) Lisinopril Drug Allergy 11-16-19 25 [facility] (1 source) traMADol Drug Allergy 11-16-19 25 [facility] (1 source) semaglutide Drug allergy (disorder) 11-16-19 [facility] Medications Current Medications Medication Drug Class(es) Dates Sig (Normalized) Sig (Original) baclofen 10 mg oral tablet (20 sources) gamma-Aminobutyri c Acid-ergic Agonist Start: 01-02-2016 take 1 tablet by mouth three times daily as needed baclofen (Lioresal) 10 mg tablet Take 1 tablet (10 mg) by mouth 3 times a day as needed. 01/02/2016 Active Start: 01-02-2016 End: 12-19-2025 take 1 tablet by mouth twice daily baclofen 10 mg tablet Indications: Fibromyalgia , Systemic lupus erythematosus, unspecified SLE type, unspecified organ involvement status (HCC) Take 1 tablet by mouth two times a day. 60 tablet 11 12/19/2024 12/19/2025 Active canagliflozin 300 mg oral tablet (20 sources) Sodium-Glucose Cotransporter 2 Inhibitor Start: 08-24-2020 End: 02-16-2024 canagliflozin (Invokana) 300 mg Take by mouth. 08/24/2020 02/16/2024 Discontinued (Med List Cleanup) chlorthalidone 25 mg oral tablet (9 sources) Thiazide-like Diuretic Start: 07-18-2024 End: 08-15-2024 chlorthalidone (Hygroton) 25 mg tablet 07/18/2024 Active cholecalciferol 0.05 mg chewable tablet (20 sources) Vitamin D Start: 07-07-2019 take 1 tablet by mouth once daily Cholecalciferol (Vitamin D3) 2,000 UNIT tablet,chewable Active 2000 U PO DAILY July 07, 2019 12:00am take 1 capsule by mouth once florentin ly Cholecalciferol, Vitamin D3, 25 mcg (1,000 unit) cap Take 1,000 Units by mouth once daily. Active Comment on above: Take 1,000 Units by mouth once daily. sugar-free cholestyramine resin 4000 mg powder for oral suspension (8 sources) Bile Acid Sequestrant Start: 023 End: take 4 g by mouth once daily at lunch cholestyramine light (Prevalite) 4 gram packet 4 G ORALLY DAILY TAKE WITH LUNCH AVOID OTHER MEDS WITHIN 1HR BEFORE OR 4-6HR AFTER DOSE 11/07/2022 02/16/2024 Discontinued (Med List Cleanup) Comment on above: Take 4 g by mouth on ce daily. dapagliflozin 10 mg oral tablet (20 sources) Sodium-Glucose Cotransporter 2 Inhibitor Start: End: take 1 tablet by mouth once daily before mealtime dapagliflozin propanediol (Farxiga) 10 mg Take 1 tablet (10 mg) by mouth once daily in the morning. Take before meals. 12/12/2020 Active Comment on above: Take 10 mg by mouth once daily. diclofenac sodium 0.01 mg/mg topical gel (20 sources) Nonsteroidal Anti-inflammatory Drug Start: diclofenac sodium 1 % kit APPLY FOUR TIMES EVERY DAY TO THE AFFECTED AREA(S) DIRECTED 08/05/2021 Active Start: 08-05-2021 Diclofenac Sod ium 1 % External Gel APPLY FOUR TIMES EVERY DAY TO THE AFFECTED AREA(S) DIRECTED Quantity: 2 Refills: 11 Ordered: 05-Aug-2021 Genie Godinez MD Start : 05-Aug-2021 Active Start: 01-29-2021 apply 2 g topically twice daily as needed for pain Diclofenac Sodium 1 % gel Active 2 g TOPICAL TWICE A DAY as needed for Pain January 29, 2021 12:00am Start: 01-29-2021 apply 2 g topically twice vane y Diclofenac Sodium Active 2 GM TOPICAL TWICE A DAY January 29, 2021 12:00am Start: 04-23-2016 End: 11-10-2017 Diclofenac Sodium 100 GM gel Discontinued 1 g TOPICAL NEEDED as needed for Joint Stiffness April 23, 2016 12:00am November 10, 2017 12:05pm Start: 04-23-2016 End: 11-10-2017 Diclofenac Sodium Discontinu ed 1 GM TOPICAL NEEDED April 23, 2016 12:00am November 10, 2017 12:05pm Start: 10-26-2014 Diclofenac Sod ium (VOLTAREN) 1 % gel Apply 1 g to affected area twice daily. 30 g 3 10/26/2014 Active Start: 10-26-2014 Voltaren 1 % G EL APPLY TO LOWER EXTREMITIES, 4 GM OF GEL TO AFFECTED AREA 4 TIMES DAILY. DO NOT APPLY MORE THAN 16 GM DAILY TO ANY ONE AFFECTED JOINT. Quantity: 1 Refills: 11 Ordered: 06-Aug-2017 Genie Godinez MD Start : 26-Oct-2014 Active Comment on above: Apply 1 g to affecte d area twice daily. dicyclomine hydrochloride 10 mg oral capsule (5 sources) Anticholinergic Start: 08-27-20 22 take 1 capsule by mouth twice daily dicyclomine (Bentyl) 10 mg capsule Take 1 capsule (10 mg) by mouth 2 times a day. 08/27/2022 Active doxycycline hyclate 100 mg oral tablet (1 source) Tetracycline-class Drug Start: 09-24-20 End: 10-01-20 23 take 1 tablet by mouth twice daily doxycycline (VIBRA-TABS) 100 mg tablet Take 1 tablet by mouth two times a day for 7 days. 14 tablet 0 09/24/2023 10/01/2023 Active Comment on above: Take 1 tablet by rahel two times a day for 7 days. ergocalciferol 0.05 mg oral tablet (20 sources) Provitamin D2 Compound Start: 08-12-20 17 take 2 tablets by mouth once daily ergocalciferol, vitamin D2, 50 mcg (2,000 unit) tablet Take 2 tablets by mouth once daily. 08/12/2017 Active etodolac 400 mg oral tablet (20 sources) Nonsteroidal Anti-inflammatory Drug Start: 10-21-19 24 take 1 tablet by mouth every twelve hours etodolac (LODINE) 400 mg tablet Take 1 tablet by mouth every 12 hours. PRN 10/21/2023 Active Start: 02-20-2022 End: 11-19-2022 take 1 tablet by mouth twice daily as needed etodolac (Lodine) 400 mg tablet Take 1 tablet (400 mg) by mouth 2 times a day as needed. 02/20/2022 Active Comment on above: Take 400 mg by mouth twice daily as needed. Take 1 tablet by rahel th twice daily as needed. Take 1 tablet by rahel th every 12 hours. famotidine 20 mg oral tablet (2 sources) Histamine-2 Receptor Antagonist Start: 03-24-2025 famotidine (Pepcid) 20 mg tablet 03/24/2025 Active fenofibrate 145 mg oral tablet (20 sources) Peroxisome Proliferator Receptor alpha Agonist Start: 01-18-2025 fenofibrate (Tricor) 145 mg tablet 04/08/2025 Active Start: 12-04-2023 End: 04-27-2025 take 1 tablet by mouth once daily fenofibrate (Tricor) 48 mg tablet Take 1 tablet (48 mg) by mouth once daily. 02/01/2024 04/27/2025 Discontinued (Med List Cleanup) Start: 11-24-2013 End: 08-14-2022 take 1 tablet by mouth once daily Fenofibrate Nanocrystallized 145 MG tablet Discontinued 145 mg PO DAILY March 20, 2014 12:00am December 05, 2021 11:53am Comment on above: Take 145 mg by mouth once daily. Fish Oil-Dha-Epa (12 sources) Start: 07-07-2019 Fish Oil-Dha-E pa Active 1 EACH PO DAILY July 07, 2019 3:21pm Start: 07-07-2019 Fish Oil-Dha-E pa Active 1 EACH PO DAILY July 06, 2019 11:00pm Start: 07-07-2019 Fish Oil-Dha-E pa Active 1 EACH PO DAILY July 07, 2019 12:00am Fish Oil-Dha-Epa 1 EACH capsule (2 sources) Start: 07-07-2019 take 1 capsule by mouth once daily Fish Oil-Dha-Epa 1 EACH capsule Active 1 NMA PO DAILY July 07, 2019 12:00am Flash Glucose Scanning Lamar (StyleTrek Lesley 2 Lamar) misc (3 sources) Start: 12-09-2023 Flash Glucose Scanning Lamar (Freestyle Lesley 2 Lamar) mis Active 0 .Route 1 0 December 09, 2023 1:00am Diabetes mellitus Type 2 diabetes mellitus without complications As directed Start: 12-09-2023 Flash Glucose Scanning Lamar (Freestyle Lesley 2 Lamar) misc Active 0 .Route 1 December 09, 2023 1:00am As directed Flash Glucose Sensor (Freestyle Lesley 2 Sensor) kit (3 sources) Start: 12-09-2023 Flash Glucose Sensor (Freestyle Lesley 2 Sensor) kit Active 0 .Route 2 5 December 09, 2023 1:00am Diabetes mellitus Type 2 diabetes mellitus without complications 1 sensor q 14 days Start: 12-09-2023 Flash Glucose Sensor (Freestyle Lesley 2 Sensor) kit Active 0 .Route 2 December 09, 2023 1:00am 1 sensor q 14 days glimepiride 2 mg oral tablet (20 sources) Sulfonylurea Start: 04-13-2024 End: 05-20-2024 take 1.5 mg by mouth once daily Glimepiride 1 mg tablet Discontinued 1.5 mg PO DAILY April 13, 2024 10:21am April 13, 2024 2:45pm Diabetes mellitus Type 2 diabetes mellitus with hyperglycemia Start: 04-13-2024 End: 11-16-2024 take 3 mg by mouth once daily Glimepiride 2 mg tablet Active 3 mg PO DAILY 135 November 16, 2024 10:08am Diabetes mellitus Type 2 diabetes mellitus with hyperglycemia Start: 03-09-2024 End: 04-13-2024 take 3 tablets by mouth once daily Glimepiride 1 mg tablet Discontinued 3 mg PO DAILY 270 March 09, 2024 12:00am April 13, 2024 10:22am Diabetes mellitus Type 2 diabetes mellitus with hyperglycemia Start: 05-07-2022 End: 03-09-2024 take 3 mg by mouth once daily Glimepiride 2 mg tablet Discontinued 3 mg PO DAILY 135 July 10, 2022 11:10am December 10, 2022 10:33am Diabetes mellitus Type 2 diabetes mellitus with hyperglycemia Start: 05-07-2022 End: 12-10-2022 take 3 mg by mouth once daily Glimepiride Discontinued 3 MG PO DAILY 135 July 10, 2022 11:10am December 10, 2022 10:33am Start: 04-03-2021 take 1 tablet by rahel th once daily at breakfast glimepiride (AMARYL) 2 mg tablet Take 2 mg by mouth daily with breakfast. 04/13/2024 Active Start: 04-03-2021 Glimepiride 2 MG Oral Tablet Quantity: 90 Refills: 0 Ordered: 03-Apr-2021 DO Start : 03-Apr-2021 Active Start: 01-29-2021 End: 05-07-2022 take 1 tablet by mouth twice daily Glimepiride 2 mg tablet Discontinued 2 mg PO TWICE A DAY 180 March 19, 2022 4:18pm May 07, 2022 10:16am Start: 01-21-2018 End: 04-07-2018 take 1 tablet by mouth twice daily before breakfast Glimepiride (Amaryl) 2 mg tablet Discontinued 2 mg PO TWICE A DAY 180 3 January 21, 2018 10:42am April 07, 2018 12:23pm Type 2 diabetes mellitus without complications Start with 1/2 tablet before breakfast and before supper. May titrate to 2mg before breakfast and before supper if needed. Comment on above: Taking 1.5 tablets a day hydrocortisone 25 mg/ml topical cream (20 sources) Corticosteroid hydrocortisone (ANUSOL-HC) 2.5 % rectal cream by RECTAL route two times a day. PRN Active Comment on above: by RECTAL route twic e daily. icosapent ethyl 1000 mg oral capsule (3 sources) Start: 04-13-2024 Vascepa 1 gram capsule 04/13/2024 Active Start: 04-13-2024 End: 07-12-2024 Icosapent Ethyl (Vascepa) 1 gram capsule Discontinued 2 g PO TWICE A DAY 360 April 13, 2024 12:00am July 12, 2024 10:52am Hyperlipidemia High blood triglycerides Mixed hyperlipidemia Pure hyperglyceridemia lisinopril 5 mg oral tablet (20 sources) Angiotensin Converting Enzyme Inhibitor Start: 04-11-2020 End: 02-16-2024 lisinopril 5 mg tablet Take by mouth. 04/11/2020 02/16/2024 Discontinued (Med List Cleanup) Start: 04-11-2020 Lisinopril 5 M G Oral Tablet Quantity: 0 Refills: 0 Ordered: 11-Apr-2020 Genie Godinez MD Start : 11-Apr-2020 Active losartan potassium 100 mg oral tablet (20 sources) Angiotensin 2 Receptor Devon Start: 09-17-2023 End: 11-21-2025 losartan (Cozaar) 100 mg tablet 07/11/2024 Active Start: 10-17-2021 End: 04-13-2024 take 1 tablet by mouth once daily Losartan 50 mg tablet Discontinued 50 mg PO DAILY December 05, 2021 1:00am April 13, 2024 10:21am Start: 10-17-2021 Losartan Potas sium 50 MG Oral Tablet Quantity: 180 Refills: 0 Ordered: 03-Dec-2021 DO Start : 17-Oct-2021 Active Start: 03-13-2021 End: 12-05-2021 take 1 tablet by mouth once daily Losartan 25 mg tablet Discontinued 25 mg PO DAILY 15 01September 26, 2021 11:31am December 05, 2021 12:00pm Comment on above: Take 1 tablet by rahel th once daily. TAKE 1 TABLET BY RAHEL TH EVERY DAY magnesium oxide 400 mg oral tablet (5 sources) Start: 11-22-2024 End: 11-22-2025 take 1 tablet by mouth once daily magnesium oxide (MAG-OX) 400 mg (241.3 mg magnesium) tablet Indications: Hypomagnesemia Take 1 tablet by mouth once daily. 90 tablet 3 11/22/2024 11/22/2025 Active 24 hr metoprolol succinate 50 mg extended release oral tablet (4 sources) beta-Adrenergic Devon Start: 11-21-2024 metoprolol succinate XL (Toprol-XL) 50 mg 24 hr tablet 11/21/2024 Active Start: 11-21-2024 End: 11-21-2025 take 1 tablet by mouth once daily metoprolol succinate ER (TOPROL XL) 50 mg 24 hr tablet Indications: Primary hypertension Take 1 tablet by mouth once daily. 90 tablet 3 11/21/2024 12/19/2024 Discontinued (Discontinued by Patient) MULTIVITAMIN TAB (20 sources) Start: 11-20-2005 MULTIVITAMIN T AB Take by mouth. Centrum Silver 0 11/20/2005 Active Start: 11-20-2005 MULTIVITAMIN T AB Take one(1) tablet daily. 0 11/20/2005 Active Comment on above: Take one(1) tablet d aily. Multivitamin With Minerals (12 sources) Start: 07-07-2019 Multivitamin With Minerals Active 1 EACH PO DAILY July 07, 2019 3:21pm Start: 07-07-2019 Multivitamin W ith Minerals Active 1 EACH PO DAILY July 06, 2019 11:00pm Start: 07-07-2019 Multivitamin W ith Minerals Active 1 EACH PO DAILY July 07, 2019 12:00am Multivitamin With Minerals 1 EACH tablet (2 sources) Start: 07-07-2019 take 1 tablet by mouth once daily Multivitamin With Minerals 1 EACH tablet Active 1 NMA PO DAILY July 07, 2019 12:00am multivitamin with minerals iron-free (Centrum Silver) (3 sources) Start: 06-06-2015 take 1 tablet by mouth once daily multivitamin with minerals iron-free (Centrum Silver) Take 1 tablet by mouth once daily. 06/06/2015 Active Start: 06-06-2015 take 1 tablet by rahel th once daily multivitamin with minerals iron-free (Centrum Silver) Take 1 tablet by mouth once daily. 0 06/06/2015 Active nefazodone hydrochloride 200 mg oral tablet (20 sources) Serotonin Reuptake Inhibitor Start: 11-21-2024 End: 11-21-2025 take 0.5 tablet by mouth once daily, then take 1 tablet by mouth once daily at bedtime nefazodone (SERZONE) 200 mg tablet Indications: MARCY (generalized anxiety disorder) Take 0.5 tablets by mouth once daily AND 1 tablet daily at bedtime. 135 tablet 3 11/21/2024 11/21/2025 Active Start: 07-07-2019 End: 05-07-2022 take 1 tablet by mouth twice daily Nefazodone 50 MG tablet Discontinued 200 mg PO TWICE A DAY July 07, 2019 12:00am May 07, 2022 10:15am Start: 07-07-2019 End: 05-07-2022 take 200 mg by mouth twice daily Nefazodone Discontinued 200 MG PO TWICE A DAY July 07, 2019 12:00am May 07, 2022 10:15am Start: 05-31-2014 End: 11-21-2024 take 1 tablet by mouth once daily nefazodone (Serzone) 200 mg tablet Take 1 tablet (200 mg) by mouth once daily. 05/31/2014 Active Start: 03-20-2014 End: 11-10-2017 take 1 tablet by mouth at bedtime Nefazodone 250 MG tablet Discontinued 200 mg PO AT BEDTIME March 20, 2014 12:00am November 10, 2017 12:38pm Start: 03-20-2014 End: 11-10-2017 take 200 mg by mouth at bedtime Nefazodone Discontinue d 200 MG PO AT BEDTIME March 20, 2014 12:00am November 10, 2017 12:38pm Comment on above: Take 200 mg by mouth once daily. Take 1 tablet by rahel th once daily. omega 4-yth-bhq-fish oil 1,200 (144-216) mg capsule (2 sources) take 1 capsule by mouth once daily omega 4-rzp-fuh-fish oil 1,200 (144-216) mg capsule Take 1 capsule (1,200 mg) by mouth once daily. Active OMEGA-3 FATTY ACIDS/FISH OIL (OMEGA 3 FISH OIL ORAL) (20 sources) OMEGA-3 FATTY ACIDS/FISH OIL (OMEGA 3 FISH OIL ORAL) Take by mouth. Active OMEGA-3 FATTY AC IDS/FISH OIL (OMEGA 3 FISH OIL ORAL) Take by mouth. 0 Active Comment on above: Take by mouth. omeprazole 40 mg delayed release oral capsule (20 sources) Proton Pump Inhibitor Start: 11-07-2022 End: 11-21-2025 take 1 capsule by mouth once daily Omeprazole 40 mg capsule,delayed release(DR/EC) Active 40 mg PO DAILY December 10, 2022 1:00am Start: 11-10-2017 End: 11-19-2022 take 1 tablet by mouth twice daily Omeprazole Magnesium (Prilosec Otc) 20 mg tablet,delayed release (DR/EC) Discontinued 20 mg PO TWICE A DAY November 10, 2017 1:00am November 07, 2022 10:46am Start: 05-31-2014 End: 02-16-2024 take 1 capsule by mouth twice daily omeprazole (PriLOSEC) [address] capsule Take 1 capsule (20 mg) by mouth 2 times a day. 05/31/2014 02/16/2024 Discontinued (Med List Cleanup) take 1 tablet by rahel th twice daily PRILOSEC 2.5 MG PACK One tablet by mouth twice daily OMEPRAZOLE MAGNESIUM [id number] Isaura Mejiafranccameron [facility] Comment on above: Take 20 mg by mouth twice daily. Take 40 mg by mouth every morning. Take 1 capsule by mo uth every morning. pravastatin sodium 80 mg oral tablet (20 sources) HMG-CoA Reductase Inhibitor Start: 2 End: 3 take 80 mg by mouth at bedtime Pravastatin Active 80 MG PO AT BEDTIME May 06, 2022 11:00pm Start: 11-17-2016 End: 08-20-2023 take 1 tablet by mouth at bedtime Pravastatin (Pravachol) 40 mg tablet Discontinued 40 mg PO AT BEDTIME November 10, 2017 1:00am May 07, 2022 10:11am Comment on above: Take 80 mg by mouth once daily. Take 1 tablet by rahel th once daily. sucralfate 1000 mg oral tablet (20 sources) Aluminum Complex Start: 09-12-2020 End: 11-21-2024 sucralfate (Carafate) 1 gram tablet Take by mouth. 09/12/2020 Active Start: 09-12-2020 Sucralfate 1 G M Oral Tablet Quantity: 120 Refills: 0 Ordered: 07-Nov-2020 DO Start : 12-Sep-2020 Active Comment on above: Take 1 tablet by rahel th before meals and at bedtime. prn vitamin e 450 mg oral capsule (20 sources) Start: 06-08-2023 take 1 capsule by mouth once daily Vitamin E (Dl, Acetate) 450 mg (1,000 unit) capsule Active 450 mg PO DAILY June 08, 2023 12:00am vitamin E mixed 400 unit cap Take by mouth. Active Comment on above: Take by mouth. vitamin E acetate (VITAMIN E ORAL) (2 sources) take 1 tablet by rahel th once daily vitamin E acetate (VITAMIN E ORAL) Take 1 tablet by mouth once daily. Active Completed/Discontinued Medications Medication Drug Class(es) Dates Sig (Normalized) Sig (Original) [id number] 200 actuat albuterol 0.09 mg/actuat metered dose inhaler (1 source) beta2-Adrenergic Agonist Start: 10-06-2023 End: 11-20-2023 take 2 puff(s) by inhalation every four hours as needed for cough albuterol HFA (VENTOLIN HFA) 90 mcg/actuation inhaler Indications: Bronchitis Inhale 2 Puffs as instructed every 4 hours as needed for wheezing/shortness of breath (cough). 1 Each 1 10/06/2023 11/20/2023 Discontinued (Other) Comment on above: Inhale 2 Puffs as in structed every 4 hours as needed for wheezing/shortness of breath (cough). ascorbic acid 60 mg / beta carotene 5000 unt / copper sulfate 40 mg / dl-alpha tocopheryl acetate 30 unt / sodium selenite 0.04 mg / zinc oxide 40 mg oral tablet (2 sources) Vitamin C Start: 06-06-2015 take 1 tablet by mouth once daily Centrum Silver Oral Tablet TAKE 1 TABLET DAILY. Refills: 0 DO Start : 06-Jun-2015 Active aspirin 81 mg chewable tablet (20 sources) Platelet Aggregation Inhibitor, Nonsteroidal Anti-inflammatory Drug Start: 04-23-2016 End: 03-07-2024 take 1 tablet by mouth once daily Aspirin 81 MG tablet,chewable Discontinued 81 mg PO DAILY April 23, 2016 12:00am March 07, 2024 11:00am Start: 06-06-2015 End: 02-16-2024 take 1 tablet by mouth once daily aspirin 81 mg capsule Take 1 tablet by mouth once daily. 06/06/2015 02/16/2024 Discontinued (Med List Cleanup) End: 09-17-2023 take 1 tablet by mouth once daily aspirin, enteric coated (ASPIRIN, ENTERIC COATED) 81 mg EC tablet Take 81 mg by mouth once daily. 09/17/2023 Discontinued Comment on above: Take 81 mg by mouth once daily. benzonatate 100 mg oral capsule (2 sources) Non-narcotic Antitussive Start: 3 End: 4 take 1 capsule by mouth every eight hours as needed benzonatate (TESSALON PERLES) 100 mg capsule Take 1 capsule by mouth three times a day as needed for cough. 14 capsule 0 09/24/2023 11/20/2023 Discontinued (Other) Comment on above: Take 1 capsule by [facility] three times a day as needed for cough. carvedilol 12.5 mg oral tablet (1 source) alpha-Adrenergic Devon, beta-Adrenergic Devon Start: 3 End: 4 take 1 tablet by mouth twice daily carvedilol (COREG) 12.5 mg tablet Take 1 tablet by mouth two times a day. 60 tablet 5 10/09/2023 11/20/2023 Discontinued (Other) Comment on above: Take 1 tablet by rahel th two times a day. celecoxib 200 mg oral capsule (17 sources) Nonsteroidal Anti-inflammatory Drug Start: 8 End: take 1 capsule by mouth once daily as needed for pain Celecoxib (Celebrex) 200 mg capsule Discontinued 200 mg PO daily as needed for Pain November 10, 2017 1:00am May 07, 2022 10:11am take 1 tablet by mouth once vane y CELEBREX 200 MG CAPS One tablet by mouth daily CELECOXIB [id number] Isaura Zavala LPN Centrum Silver Oral Tablet (3 sources) Start: 06-06-2015 take 1 tablet by mouth once daily Centrum Silver Oral Tablet TAKE 1 TABLET DAILY. Refills: 0 Start : 06-Jun-2015 Active Centrum Silver Oral Tablet (20 sources) Start: 06-06-2015 take 1 tablet by mouth once daily Centrum Silver Oral Tablet TAKE 1 TABLET DAILY. Quantity: 0 Refills: 0 Ordered: 06-Jun-2015 DO Start : 06-Jun-2015 Active Cholestyramine-Aspart gabrielle (Cholestyramine Light) 4 gram powder in packet (6 sources) Start: 11-07-2022 End: 06-08-2023 Cholestyramine-Aspartame (Cholestyramine Light) 4 gram powder in packet Discontinued 4 g PO DAILY November 07, 2022 1:00am June 08, 2023 9:15am take with lunch; avoid other meds within 1hr before or 4-6hr after dose Start: 11-07-2022 End: 06-08-2023 Cholestyramine-Aspartame (Ch olestyramine Light) 4 gram powder in packet Discontinued 4 GM PO DAILY November 07, 2022 1:00am June 08, 2023 9:15am take with lunch; avoid other meds within 1hr before or 4-6hr after dose Start: 11-07-2022 End: 06-08-2023 Cholestyramine-Aspartame (Ch olestyramine Light) 4 gram powder in packet Discontinued 4 GM PO DAILY November 07, 2022 12:00am June 08, 2023 8:15am take with lunch; avoid other meds within 1hr before or 4-6hr after dose Start: 11-07-2022 Cholestyramine -Aspartame (Cholestyramine Light) 4 gram powder in packet Active 4 GM PO DAILY November 07, 2022 1:00am take with lunch; avoid other meds within 1hr before or 4-6hr after dose Start: 11-07-2022 Cholestyramine -Aspartame (Cholestyramine Light) 4 gram powder in packet Active 4 GM PO DAILY November 07, 2022 12:00am take with lunch; avoid other meds within 1hr before or 4-6hr after dose cyclobenzaprine hydrochloride 10 mg oral tablet (14 sources) Muscle Relaxant Start: 03-20-2014 End: 11-10-2017 take 1 tablet by mouth three times daily as needed for pain Cyclobenzaprine 10 MG tablet Discontinued 10 mg PO 3 TIMES DAILY NEEDED as needed for Pain March 20, 2014 12:00am November 10, 2017 12:04pm dexamethasone 6 mg oral tablet (14 sources) Corticosteroid Start: 06-24-2021 End: 07-04-2021 take 1 tablet by mouth once daily Dexamethasone 6 MG tablet Discontinued 6 mg PO DAILY 5 0 June 24, 2021 12:00am July 04, 2021 1:03pm ezetimibe 10 mg oral tablet (1 source) Dietary Cholesterol Absorption Inhibitor Start: 05-25-2023 End: 06-25-2023 take 1 tablet by mouth once daily ezetimibe (ZETIA) 10 mg tablet Take 1 tablet by mouth once daily. 30 tablet 11 05/25/2023 06/25/2023 Discontinued (Side Effects) Comment on above: Take 1 tablet by rahel once daily. hydroCHLOROthiazide 25 mg oral tablet (20 sources) Thiazide Diuretic Start: 07-07-2019 End: 04-13-2024 take 1 tablet by mouth once daily Hydrochlorothiazide 25 MG tablet Discontinued 25 mg PO DAILY July 07, 2019 12:00am April 13, 2024 10:21am Comment on above: Take 25 mg by mouth once daily. Take 1 tablet by rahel th once daily. hydroCHLOROthiazide 25 mg / triamterene 37.5 mg oral capsule (3 sources) Potassium-sparing Diuretic, Thiazide Diuretic take 1 tablet by mouth once daily TRIAMTERENE-HCTZ 37.5-25 MG CAPS One tablet by mouth daily TRIAMTERENE-HCTZ [id number] Isaura Zavala [employer] hydroxychloroquine sulfate 200 mg oral tablet (20 sources) Antimalarial, Antirheumatic Agent Start: 03-20-2014 End: 04-13-2024 take 1 tablet by mouth twice daily Hydroxychloroquine 200 MG tablet Discontinued 200 mg PO TWICE A DAY March 20, 2014 12:00am April 13, 2024 10:21am Comment on above: Take by mouth twice daily. lansoprazole 30 mg delayed release oral capsule (14 sources) Proton Pump Inhibitor Start: 03-20-2014 End: 11-10-2017 Lansoprazole 30 MG capsule Discontinued 20 mg PO TWICE A DAY March 20, 2014 12:00am November 10, 2017 12:37pm Start: 03-20-2014 End: 11-10-2017 take 20 mg by mouth twice daily Lansoprazole Discontinued 20 MG PO TWICE A DAY March 20, 2014 12:00am November 10, 2017 12:37pm magnesium chloride 598 mg delayed release oral tablet (10 sources) Start: 11-20-2022 End: 11-20-2023 take 1 tablet by mouth once daily Magnesium Chloride (Slow-Mag) 71.5 mg tablet,delayed release (DR/EC) Discontinued 71.5 mg PO DAILY December 10, 2022 1:00am June 08, 2023 9:16am Comment on above: Take 1 tablet by rahel th once daily. metFORMIN hydrochloride 1000 mg oral tablet (20 sources) Biguanide Start: 12-30-2017 End: 12-31-2017 Metformin (Glucophage Xr) 500 mg tablet extended release 24 hr Discontinued 0 PO TWICE A DAY 360 December 30, 2017 1:26pm December 31, 2017 10:22am Type 2 diabetes mellitus without complications Take 500mg ER 4 pills daily PO BID Start: 11-10-2017 End: 07-04-2021 Metformin (Glucophage Xr) 50 0 mg tablet extended release 24 hr Discontinued 1000 mg PO TWICE A DAY 360 3 December 06, 2018 11:09am July 04, 2021 1:09pm Type 2 diabetes mellitus without complications Start: 01-21-2017 End: 08-20-2023 take 1 tablet by mouth every twenty-four hours metFORMIN XR 500 mg 24 hr tablet Take by mouth. 0 01/21/2017 08/20/2023 Discontinued (Therapy completed) Start: 01-21-2017 End: 04-22-2025 take 2 tablets by mouth every twenty-four hours in the morning metFORMIN HCl ER 500 MG Oral Tablet Extended Release 24 Hour Take 2 (TWO) tablets in IN THE MORNING and 2 (TWO) tablets in IN THE E Quantity: 120 Refills: 0 Ordered: 17-Apr-2017 DO Start : 21-Jan-2017 Active Start: 03-20-2014 End: 04-22-2025 take 1 tablet by mouth twice daily Metformin 1,000 mg tablet Discontinued 1000 mg PO TWICE A DAY 180 March 07, 2024 12:48pm April 13, 2024 2:47pm Comment on above: Take 1,000 mg by rahel th twice daily with meals. Take 1,000 mg by rahel th twice daily. Zrqjscsc-Bzr-Snnm-Fa-L utein (10 sources) Start: 04-23-2016 End: 11-10-2017 Zvdtgcku-Kne-Nihv-Fa-Lutei n Discontinued 1 EACH PO DAILY April 23, 2016 8:01am November 10, 2017 12:38pm Start: 04-23-2016 End: 11-10-2017 Rlupfakc-Jgz-Ngmc-Fa-Lutein Discontinued 1 EACH PO DAILY April 22, 2016 11:00pm November 10, 2017 11:38am Start: 04-23-2016 End: 11-10-2017 Swihqoxq-End-Mwon-Fa-Lutein Discontinued 1 EACH PO DAILY April 23, 2016 12:00am November 10, 2017 12:38pm Gyuaeibg-Qcc-Utxb-Fa-Vit K-L ut (2 sources) Start: 04-23-2016 End: 11-10-2017 Inkqpyel-Jwm-Aeck-Fa-Vit K-L ut Discontinued 1 EACH PO DAILY April 23, 2016 12:00am November 10, 2017 12:38pm Start: 04-23-2016 End: 11-10-2017 Tcfnkjyr-Vcx-Kfze-Fa-Vit K-L ut Discontinued 1 EACH PO DAILY April 22, 2016 11:00pm November 10, 2017 11:38am Mhvucrph-Skh-Fcwe-Fa-Vit K-Lut 1 EACH tablet (2 sources) Start: 04-23-2016 End: 11-10-2017 take 1 tablet by mouth once daily Zoyqsopq-Gps-Dbbd-Fa-Vit K-Lut 1 EACH tablet Discontinued 1 NMA PO DAILY April 23, 2016 12:00am November 10, 2017 12:38pm nabumetone 750 mg oral tablet (9 sources) Nonsteroidal Anti-inflammat ory Drug Start: 04-11-2020 take 1 tablet by mouth twice daily as needed Nabumetone 750 MG Oral Tablet TAKE ONE (1) TABLET BY MOUTH TWICE EVERY DAY NEEDED Quantity: 60 Refills: 11 Ordered: 11-Apr-2020 Genie Godinez MD Start : 11-Apr-2020 Active nitroglycerin 0.4 mg sublingual tablet (18 sources) Nitrate Vasodilator Start: 03-31-2022 End: 05-19-2023 nitroglycerin sublingual (NITROSTAT) 0.4 mg SL tablet Indications: Abnormal stress test , Chest pain, unspecified type Dissolve 1 tablet under the tongue every 5 minutes as needed for chest pain. 1 Bottle of 25 3 03/31/2022 05/19/2023 Discontinued (Other) Comment on above: Dissolve 1 tablet un nila the tongue every 5 minutes as needed for chest pain. [place]-3 Fatty Acids-Fish Oil (12 sources) Start: 04-23-2016 End: 11-10-2017 [place]-3 Fatty Acids-Fish Oil Discontinued 1 EACH PO DAILY April 23, 2016 8:01am November 10, 2017 12:38pm Start: 04-23-2016 End: 11-10-2017 [place]-3 Fatty Acids-Fish Oil Discontinued 1 EACH PO DAILY April 22, 2016 11:00pm November 10, 2017 11:38am Start: 04-23-2016 End: 11-10-2017 [place]-3 Fatty Acids-Fish Oil Discontinued 1 EACH PO DAILY April 23, 2016 12:00am November 10, 2017 12:38pm [place]-3 Fatty Acids-Fish Oil 1 EACH capsule (2 sources) Start: 04-23-2016 End: 11-10-2017 [place]-3 Fatty Acids-Fish Oil 1 EACH capsule Discontinued 1 NMA PO DAILY April 23, 2016 12:00am November 10, 2017 12:38pm ondansetron 4 mg disintegrating oral tablet (14 sources) Serotonin-3 Receptor Antagonist Start: 06-24-2021 End: 05-07-2022 take 1 tablet by mouth every six hours as needed for nausea Ondansetron 4 MG tablet Discontinued 4 mg PO EVERY 6 HOURS NEEDED as needed for Nausea June 24, 2021 7:24pm May 07, 2022 10:14am perflutren lipid microspheres 1.3 mL in NaCl (PF) 0.9% 10 mL injection (DEFINITY) (18 sources) Start: 09-17-2021 End: 12-17-2022 perflutren lipid microspheres 1.3 mL in NaCl (PF) 0.9% 10 mL injection (DEFINITY) rosuvastatin calcium 20 mg oral tablet (14 sources) HMG-CoA Reductase Inhibitor Start: 03-20-2014 End: 11-10-2017 take 1 tablet by mouth once daily Rosuvastatin 20 MG tablet Discontinued 20 mg PO DAILY March 20, 2014 12:00am November 10, 2017 12:38pm 0.25 mg, 0.5 mg dose 1.5 ml semaglutide 1.34 mg/ml pen injector (17 sources) Start: 08-10-2019 Ozempic (0.25 or 0.5 MG/DOSE) 2 MG/1.5ML Subcutaneous Solution Pen-injector INJECT 1 UNIT Weekly Refills: 0 Start : 10-Aug-2019 Active 1.5 ML Pen Start: 07-07-2019 End: 01-31-2021 Semaglutide 0.25 MG/0.2 ML p en injector Discontinued 0.25 mg SQ July 07, 2019 12:00am January 31, 2021 7:55am SITagliptin 100 mg oral tablet (17 sources) Dipeptidyl Peptidase 4 Inhibitor Start: 11-10-2017 End: 01-21-2018 take 1 tablet by mouth once daily Sitagliptin Phosphate (Januvia) 100 mg tablet Discontinued 100 mg PO daily November 10, 2017 1:00am January 21, 2018 10:42am take 1 tablet by mouth once vane y JANUVIA 100 MG TABS One tablet by mouth daily SITAGLIPTIN PHOSPHATE [id number] Isaura Zavala LPN 125 ml sodium chloride 9 mg/ml prefilled syringe (18 sources) Start: 09-17-2021 End: 12-17-2022 sodium chloride 0.9 % (flush) 10 mL (BD POSIFLUSH) spironolactone 25 mg oral tablet (1 source) Aldosterone Antagonist Start: 10-28-2023 End: 11-20-2023 take 1 tablet by mouth once daily spironolactone (ALDACTONE) 25 mg tablet Indications: Primary hypertension TAKE 1 TABLET BY MOUTH EVERY DAY 90 tablet 1 10/28/2023 11/20/2023 Discontinued (Other) Comment on above: TAKE 1 TABLET BY RAHEL TH EVERY DAY tiZANidine 4 mg oral tablet (1 source) Central alpha-2 Adrenergic Agonist Start: 12-14-2019 take 1 tablet by mouth three times daily tiZANidine HCl - 4 MG Oral Tablet TAKE 1 TABLET 3 TIMES DAILY. Quantity: 90 Refills: 5 Genie Godinez MD Start : 14-Dec-2019 Active zolpidem tartrate 10 mg oral tablet (20 sources) gamma-Aminobutyri c Acid-ergic Agonist Start: 03-20-2014 End: 08-20-2023 take 1 tablet by mouth at bedtime as needed for sleep Zolpidem 10 MG tablet Discontinued 10 mg PO AT BEDTIME NEEDED as needed for Sleep March 20, 2014 12:00am May 07, 2022 10:14am Comment on above: Take by mouth at bed time as needed. Problems Active Problems Problem Classification Problem Date Documented Da te Episodic/Chronic Abdominal pain (20 sources) Left lower quadrant pain; Translations: [Left lower quadrant pain] Onset: 3 Resolved: 4 Episodic Acquired foot deformities (5 sources) Hallux valgus; Translations: [Hallux valgus (acquired), right foot] Onset: 5 Chronic Anxiety disorders (20 sources) Anxiety; Translations: [Posttraumatic stress disorder] 11-21-2024 Chronic Blindness and vision defects (1 source) Visual disturbance; Translations: [Unspecified visual disturbance] 05-19-2023 Episodic Diabetes mellitus with complications (20 sources) Type II diabetes mellitus uncontrolled; Translations: [Type 2 diabetes mellitus with hyperglycemia] Onset: 6 08-17-2023 Chronic Diabetes mellitus without complication (20 sources) Type 2 diabetes mellitus; Translations: [Diabetes mellitus] Onset: 6 01-08-2017 Chronic Comment on above: Diabetes mellitus; Disorders of lipid metabolism (20 sources) Hyperlipidemia; Translations: [Other and unspecified hyperlipidemia] Onset: 1 09-17-2021 Chronic Diverticulosis and diverticulitis (20 sources) Diverticular disease; Translations: [Diverticulosis of intestine, part unspecified, without perforation or abscess without bleeding] Onset: 4 Chronic Esophageal disorders (20 sources) Gastroesophageal reflux disease; Translations: [Gastroesophageal reflux disease without esophagitis] Onset: 7 01-08-2017 Chronic Essential hypertension (20 sources) Hypertensive disorder; Translations: [Unspecified essential hypertension] Onset: 7 01-08-2017 Chronic Gastritis and duodenitis (12 sources) Gastritis; Translations: [Gastritis, unspecified, without bleeding] 11-07-2022 Episodic Gastrointestinal hemorrhage (20 sources) Rectal hemorrhage; Translations: [Hemorrhage of anus and rectum] Onset: 4 Resolved: 4 Episodic Hepatitis (20 sources) Nonalcoholic steatohepatitis; Translations: [Nonalcoholic steatohepatitis (KOTHARI)] Onset: 4 11-20-2023 Chronic Immunizations and screening for infectious disease (20 sources) Patient encounter status; Translations: [Other specified vaccination] Onset: 3 Resolved: 3 Episodic Comment on above: oct 2016, may 2020; Miscellaneous mental health disorders (20 sources) Primary insomnia; Translations: [Persistent disorder of initiating or maintaining sleep] Onset: 3 Chronic Mood disorders (20 sources) Recurrent major depressive episodes, mild ; Translations: [Major depressive disorder, recurrent, mild] Onset: 3 05-19-2023 Chronic Nutritional deficiencies (20 sources) Vitamin D deficiency; Translations: [Unspecified vitamin D deficiency] Onset: 7 08-17-2023 Chronic Nutritional deficiencies (20 sources) Decreased vitamin D; Translations: [Other abnormal blood chemistry] Episodic Osteoarthritis (20 sources) Primary gonarthrosis, bilateral; Translations: [Osteoarthrosis, localized, primary, lower leg] Onset: 3 08-20-2023 Chronic Comment on above: xray Jul 2016; Osteoporosis (1 source) Age-related osteoporosis without current pathological fracture; Translations: [Age-related osteoporosis without current pathological fracture] Onset: 5 Chronic Other aftercare (2 sources) shelter current use of non-steroidal anti-inflammatory drug; Translations: [shelter (current) use of non-steroidal anti-inflammatories (NSAID)] Onset: 3 04-27-2025 Episodic Other circulatory disease (5 sources) Elevated blood pressure; Translations: [Elevated blood pressure reading without diagnosis of hypertension] Episodic Other connective tissue disease (1 source) Cramp in lower limb; Translations: [Cramp and spasm] 09-17-2023 Episodic Other diseases of veins and lymphatics (14 sources) Chronic acquired lymphedema; Translations: [Lymphedema, not elsewhere classified] 07-09-2019 Chronic Other disorders of stomach and duodenum (1 source) Portal hypertensive gastropathy Episodic Other gastrointestinal disorders (20 sources) Irritable bowel syndrome; Translations: [Irritable bowel syndrome without diarrhea] Onset: 3 11-07-2022 Chronic Other gastrointestinal disorders (5 sources) Irritable bowel syndrome without diarrhea; Translations: [Irritable bowel syndrome] 11-07-2022 Chronic Other gastrointestinal disorders (20 sources) Personal history of other diseases of the digestive system; Translations: [History of irritable bowel syndrome] Episodic Other inflammatory condition of skin (3 sources) Lupus erythematosus; Translations: [Discoid lupus erythematosus] Onset: 7 01-08-2017 Chronic Other liver diseases (20 sources) Portal hypertensive gastropathy; Translations: [Portal hypertension] Onset: 3 Resolved: 3 11-07-2022 Chronic Other liver diseases (7 sources) Fatty (change of) liver, not elsewhere classified; Translations: [Other chronic nonalcoholic liver disease] Onset: 4 11-07-2022 Chronic Other liver diseases (3 sources) Portal hypertension; Translations: [Portal hypertension] 11-07-2022 Chronic Other liver diseases (3 sources) Portal hypertension; Translations: [Portal hypertension] Onset: 3 02-16-2024 Chronic Other lower respiratory disease (2 sources) Cough; Translations: [Acute cough] 09-24-2023 Episodic Other nervous system disorders (20 sources) Polyneuropathy; Translations: [Polyneuropathy, unspecified] Onset: 2 03-10-2022 Chronic Other nutritional; endocrine; and metabolic disorders (3 sources) Overweight; Translations: [Overweight] Onset: 7 01-08-2017 Chronic Other nutritional; endocrine; and metabolic disorders (3 sources) Body mass index (BMI) 50-59.9 , adult; Translations: [Body mass index (BMI) 50-59.9 , adult] Onset: 7 01-08-2017 Chronic Other nutritional; endocrine; and metabolic disorders (20 sources) Body mass index 40+ - severely obese; Translations: [Morbid (severe) obesity due to excess calories] Onset: 1 03-10-2022 Chronic Other nutritional; endocrine; and metabolic disorders (3 sources) Morbid obesity; Translations: [Morbid obesity] Chronic Other nutritional; endocrine; and metabolic disorders (20 sources) Severe obesity; Translations: [Morbid obesity] Onset: 3 Resolved: 4 08-20-2023 Chronic Other nutritional; endocrine; and metabolic disorders (5 sources) Obesity; Translations: [Obesity, unspecified] 04-13-2024 Chronic Other nutritional; endocrine; and metabolic disorders (1 source) Obesity, unspecified; Translations: [Obesity, unspecified] Chronic Other nutritional; endocrine; and metabolic disorders (5 sources) Morbid (severe) obesity due to excess calories; Translations: [Morbid obesity] Chronic Other nutritional; endocrine; and metabolic disorders (20 sources) Hypomagnesemia; Translations: [Hypomagnesemia] Onset: 3 Chronic Other screening for suspected conditions (not mental disorders or infectious disease) (20 sources) Cardiovascular stress test abnormal; Translations: [Abnormal result of other cardiovascular function study] Onset: 4 Episodic Other skin disorders (3 sources) Foot callus; Translations: [Corns and callosities] Episodic Other skin disorders (1 source) Dystrophia unguium; Translations: [Nail dystrophy] Episodic Other skin disorders (1 source) Corns and callosities; Translations: [Callus of foot] Onset: 5 Episodic Other upper respiratory infections (1 source) Chronic sinusitis; Translations: [Chronic sinusitis, unspecified] 09-24-2023 Chronic Other upper respiratory infections (2 sources) Acute upper respiratory infection; Translations: [Acute upper respiratory infection, unspecified] 09-24-2023 Episodic Residual codes; unclassified (20 sources) Obstructive sleep apnea syndrome; Translations: [Obstructive sleep apnea (adult) (pediatric)] Onset: 1 Chronic Residual codes; unclassified (1 source) Obstructive sleep apnea (adult) (pediatric); Translations: [TERI (obstructive sleep apnea)] Onset: 3 Chronic Residual codes; unclassified (7 sources) Vaccination not done; Translations: [Vaccination not carried out, unspecified reason] Episodic Residual codes; unclassified (13 sources) Needs influenza immunization; Translations: [Other specified conditions influencing health status] Episodic Residual codes; unclassified (1 source) FH: Cardiovascular disease; Translations: [Family history of ischemic heart disease and other diseases of the circulatory system] Episodic Residual codes; unclassified (14 sources) Insomnia; Translations: [Insomnia, unspecified] 05-06-2022 Episodic Spondylosis; intervertebral disc disorders; other back problems (20 sources) Degeneration of lumbar intervertebral disc; Translations: [Degeneration of lumbar or lumbosacral intervertebral disc] Onset: 6 01-09-2016 Chronic Systemic lupus erythematosus and connective tissue disorders (20 sources) Systemic lupus erythematosus; Translations: [Systemic lupus erythematosus] Onset: 1 09-17-2021 Chronic Unclassified (1 source) Metabolic dysfunction-associated steatotic liver disease (MASLD) Unclassified (1 source) High blood triglycerides Unclassified (1 source) Primary hypertension Unclassified (1 source) K76.0 - Fatty (change of) liver, not elsewhere classified,E78.1 - Pure hyperglyceridemia,E66. 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-steroidal anti-inflammatory drug 04-27-2025 Past or Other Problems Problem Classification Problem Date Documented Da te Episodic/Chronic Heart valve disorders (20 sources) Heart murmur; Translations: [Cardiac murmur, unspecified] Onset: 03-12-2022 Episodic Malaise and fatigue (1 source) Malaise and fatigue; Translations: [Other fatigue] Onset: 07-29-2017 07-29-2017 Episodic Nonspecific chest pain (20 sources) Chest pain; Translations: [Chest pain, unspecified] Onset: 11-20-2023 Resolved: 11-20-2023 Episodic Other aftercare (2 sources) 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); Translations: [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 (nsaid)] Onset: 02-16-2024 Episodic Other and unspecified benign neoplasm (20 sources) History of polyp of colon; Translations: [Personal history of colonic polyps] Onset: 09-17-2021 09-17-2021 Episodic Other connective tissue disease (4 sources) Fibromyositis; Translations: [Fibromyalgia] Onset: 01-08-2017 01-08-2017 Episodic Other connective tissue disease (20 sources) Fibromyalgia; Translations: [Myalgia and myositis, unspecified] Onset: 08-18-2023 08-20-2023 Episodic Other connective tissue disease (20 sources) Myofascial pain syndrome; Translations: [Myalgia, other site] Onset: 01-09-2016 01-09-2016 Episodic Other connective tissue disease (2 sources) Fibromyalgia; Translations: [Fibromyalgia] Onset: 08-18-2023 Episodic Other liver diseases (20 sources) Steatosis of liver; Translations: [Fatty (change of) liver, not elsewhere classified] Onset: 11-19-2022 Resolved: 11-20-2023 11-07-2022 Chronic Other liver diseases (2 sources) Hepatic fibrosis; Translations: [Liver fibrosis] Onset: 02-16-2024 Resolved: 02-16-2024 02-16-2024 Chronic Other non-traumatic joint disorders (16 sources) Hip pain; Translations: [Pain in joint, pelvic region and thigh] Resolved: 12-13-2019 Episodic Other non-traumatic joint disorders (20 sources) Bilateral hip joint pain; Translations: [Pain in right hip] Onset: 01-09-2016 01-09-2016 Episodic Other non-traumatic joint disorders (3 sources) Pain in right knee; Translations: [Pain in joint, lower leg] Onset: 07-29-2024 07-29-2024 Episodic Residual codes; unclassified (15 sources) History of influenza vaccination; Translations: [Other specified conditions influencing health status] Resolved: 11-23-2018 Episodic Residual codes; unclassified (15 sources) Influenza vaccination declined; Translations: [Vaccination not carried out because of patient refusal] Resolved: 12-21-2019 Episodic Spondylosis; intervertebral disc disorders; other back problems (3 sources) Disorder of left sciatic nerve; Translations: [Sciatica, left side] Onset: 05-20-2024 05-20-2024 Episodic Sprains and strains (3 sources) Injury of abdominal wall; Translations: [Strain of muscle, fascia and tendon of abdomen, initial encounter] Onset: 06-24-2024 06-17-2024 Episodic Unclassified (15 sources) Patient encounter status; Translations: [History of Encounter for immunization] Unclassified (4 sources) Influenza vaccination declined; Translations: [Influenza vaccination declined] Unclassified (5 sources) History of influenza vaccination; Translations: [History of influenza vaccination] Unclassified (3 sources) Onset: 08-20-2023 Resolved: 04-27-2025 08-20-2023 Viral infection (14 sources) Disease caused by 2019-nCoV; Translations: [COVID-19] Onset: 06-24-2021 05-06-2022 Episodic NEGATED: Highlighted row has not occurred!Residual codes; unclassified (20 sources) Disease Episodic Results Test Name Value Interpretation Reference Range Facility [facility] 02-21-2025 CNOV Office Visit (PODIWS ) VILMA DIAL I ([id number]) 1955 F Date Time Provider Department 02/21/25 1:00 PM DARREL CONTRERAS During your visit today, we recorded the following information about you: Isaura Antoine, RN 02/21/2025 1:45 PM Signed Patient presents with: Left Foot - Established Patient, Follow Up, Diabetic Foot Check Right Foot - Established Patient, Follow Up, Diabetic Foot Check AMB ROOMING INTAKE FLOWSHEET DATA Pain Pain Level: 5 Pain Location: Other: See Comment (Bilateral feet R>L) Description: Aching Frequency: Continuous Intervention/Comfort measure: Relaxation Patient presents for 1 year follow up diabetic foot/nail care and due for diabetic foot check. Patient would like a new order for diabetic shoes placed as well. SAÚL 02/22/24 Darrel Contreras 02/21/2025 1:29 PM Signed Begin using your new diabetic shoes with an insert as discussed to help support your feet and reduce pressure on your bunions. Consider using a custom orthotic if the diabetic shoe does not seem to provide enough stability. Wear wider shoes to accommodate your bunion and lessen rubbing on your second toe. File down any calluses periodically with a pumice stone to help reduce pressure on painful areas. Continue to avoid walking barefoot and inspect your feet daily for any new changes or worsening symptoms. Monitor your pain and the feeling of your foot ?giving out? and contact us if these issues increase or new concerns arise. Darrel Contreras 02/21/2025 1:45 PM Signed Subjective Vilma is a 69-year-old female with a history of diabetes mellitus and lupus, presenting for a diabetic foot exam and evaluation of bilateral foot pain. Diabetes Mellitus: - Last HbA1c was 7.1% in June, 7 months ago. - Denies burning, tingling, or numbness in feet. Bilateral Foot Pain: - Pain in bilateral hallux, worse on the right side. - Pain localized to the bunion on the right hallux and the second toe. - Describes pain as aching, exacerbated by seasonal changes. - Takes anti-inflammatory medication sparingly due to gastrointestinal concerns. - Reports occasional giving out of the foot when walking. - Has used shoe inserts previously but did not obtain diabetic shoes last year. Lupus: - Diagnosed with lupus, which affects joints and causes flare-ups with seasonal changes. - Manages pain with anti-inflammatory medication, used sparingly. Musculoskeletal: (+) big toe pain, (+) second toe pain, (+) foot instability, (+) arthralgias Neurological: (-) burning, (-) tingling, (-) numbness PAST MEDICAL HISTORY Diagnosis Date Degenerative disc disease, lumbar Diabetes (HCC) Fibromyalgia GERD (gastroesophageal reflux disease) Hypercholesterolemia Insomnia Lupus Osteoarthritis Current Outpatient Medications Medication Sig Dispense Refill baclofen 10 mg tablet Take 1 tablet by mouth two times a day. 60 tablet 11 magnesium oxide (MAG-OX) 400 mg (241.3 mg magnesium) tablet Take 1 tablet by mouth once daily. 90 tablet 3 losartan (COZAAR) 100 mg tablet Take 1 tablet by mouth once daily. 90 tablet 3 nefazodone (SERZONE) 200 mg tablet Take 0.5 tablets by mouth once daily AND 1 tablet daily at bedtime. 135 tablet 3 omeprazole (PRILOSEC) 40 mg capsule Take 1 capsule by mouth every morning. 90 capsule 3 glimepiride (AMARYL) 2 mg tablet Take 2 mg by mouth daily with breakfast. fenofibrate nanocrystallized (TRICOR) 48 mg tablet etodolac (LODINE) 400 mg tablet Take 1 tablet by mouth every 12 hours. PRN vitamin E mixed 400 unit cap Take by mouth. metFORMIN (GLUCOPHAGE) 1,000 mg tablet Take 1,000 mg by mouth twice daily. dapagliflozin (FARXIGA) 10 mg tablet Take 10 mg by mouth once daily. blood sugar diagnostic (BLOOD GLUCOSE TEST) test strip Test blood sugar(s) bid times daily. Dx: Type 2 DM - Controlled E11.9 Insulin: No 150 Strip 3 Cholecalciferol, Vitamin D3, 25 mcg (1,000 unit) cap Take 1,000 Units by mouth once daily. hydrocortisone (ANUSOL-HC) 2.5 % rectal cream by RECTAL route two times a day. PRN Diclofenac Sodium (VOLTAREN) 1 % gel Apply 1 g to affected area twice daily. 30 g 3 OMEGA-3 FATTY ACIDS/FISH OIL (OMEGA 3 FISH OIL ORAL) Take by mouth. MULTIVITAMIN TAB Take by mouth. Centrum Silver 0 No current facility-administered medications for this visit. Family History Problem Relation Age of Onset Heart Mother Diabetes Mother COPD Mother other (lupus) Mother other (rheumatoid) Mother Heart Sister SD at age 41 Diabetes Sister Aneurysm Sister Abdominal other (aortic stenosis) Sister other (spesis) Sister Objective Last menstrual period 11/09/2005. - Cardiovascular: Dorsalis pedis and posterior tibial pulses palpable bilaterally; capillary refill time <5 seconds bilaterally. - Skin: Warm skin temperature; hair growth present; slight callus formation on t (more content not included)... Normal [facility] Gastroenterology Visit Repor ton 02-16-2025 Gastroenterology Visit Report [facility] Gastroenterology [address] [place] [address] OFFICE VISIT Date of Service: 02/16/25 MR#: [id number] Acct: [id number] Name: VILMA DIAL I Rep #: [id number] : 1955 Provider: Dr. Myke cortez MD Age/Sex: 69/F Location: [facility] Status: Signed Intake Vital Signs 11/17/24 11:34 02/16/25 14:23 Height 5 ft 5 in 5 ft 5 in Weight: 302 lb BMI 50.2 BP 137/83 H Blood Pressure Location Rt brachial Position Sitting Pulse 74 Pulse Oximetry (%) 95 Oxygen Delivery Method room air Intake Visit Reasons: FU Chief Complaint: f/u fatty liver Allergies tizanidine (From Zanaflex) Allergy (Intermediate, Verified 11/16/24 08:37) heart racing nitrofurantoin macrocrystalline (From Macrodantin) Allergy (Verified 11/16/24 08:37) Unknown tramadol HCl (From Ultram) Allergy (Verified 11/16/24 08:37) Swelling sitagliptin (From Januvia) Adverse Reaction (Severe, Verified 11/16/24 08:37) Nausea lisinopril Adverse Reaction (Intermediate, Verified 11/16/24 08:37) muscle spasms semaglutide (From Ozempic) Adverse Reaction (Intermediate, Verified 11/16/24 08:37) constipated ciprofloxacin (From Cipro) Adverse Reaction (Verified 11/16/24 08:37) RED URINE ciprofloxacin HCl (From Cipro) Adverse Reaction (Verified 11/16/24 08:37) RED URINE empagliflozin (From Jardiance) Adverse Reaction (Verified 11/16/24 08:37) stomach pain Have you fallen in the past year?: No PFSH Medical History Morbid obesity with BMI of 50.0-59.9, adult Vertigo Wears glasses Post-menopausal Diabetes Fatty liver Superfic phlebitis-leg Easy bruising Restless legs Back pain Dietary restriction History of ulceration History of diverticulitis Hypertension Gastric reflux Non-smoker CPAP (continuous positive airway pressure) dependence Leg cramps History of pain when walking History of edema History of echocardiogram History of stress test Cardiology follow-up encounter Chest pain Essential hypertension COVID-19 (06/24/21) Diabetes Seasonal allergies Stomach ulcer GERD (gastroesophageal reflux disease) Fibromyalgia Polycystic ovary Pneumonia Pancreatitis Osteoarthritis Lupus IBS (irritable bowel syndrome) Arthritis Anxiety and depression Insomnia SLE (systemic lupus erythematosus) Surgical History History of cardiac catheterization Hx of colonoscopy H/O breast biopsy H/O hernia repair H/O: hysterectomy Hx of cholecystectomy Hx of appendectomy Hx of tonsillectomy Family History Mother Arthritis Diabetes Heart disease Hypertension High cholesterol Thyroid disorder Lupus Father Liver disease Other Alcohol abuse Anemia Anxiety Asthma Autoimmune disease CVA (cerebral vascular accident) Colon cancer Depression Melanoma Mental disorder Myocardial infarction Psychiatric care Respiratory disease Skin cancer angina ulcer disease Social History Smoking Status: Never smoker second hand exposure: No alcohol intake: never substance use type: does not use HPI HPI Chief Complaint: f/u fatty liver Details: VILMA DIAL, is a 69 F who presents to the office today for follow up. BGI established 11.. with CP r/t GERD. She had negative cardiac workup. She reports retrosternal pain that can be sharp, worse when lying on left side or if she lies prone. Doesn't occur daily. Better if she avoids pop, spicy foods. Worse with stress. Doesn't radiate. Started months ago. Reports hx of CP at age 18, was diagnosed with gastric ulcer then. No sense of esophageal spasms. She takes ASA 81 mg daily. She used to take etodolac prn, hasn't resumed it yet. Remote hx of H pylori. Also gets pain in LUQ, random, feels like it's in her stomach. Has carafate pills, helps with the LUQ pain. And feels a heartbeat in the RUQ that she also feels in her throat sometimes, like palpitations but not of the heart; no pattern she can discern, occurs at rest. Takes omeprazole 20 mg BID, has more stomach pain if she doesn't take it, eg if she forgets the 2nd dose of the day. PPI doesn't seem to affect the CP. Also notes she always feels bloated, and has gas. Can alternate between diarrhea and constipation. Has been diagnosed with IBS-alternating. Doesn't take anything for the bowels. Has tried metamucil, made constipation worse. Occas nausea, no vomiting. No dysphagia. No melena. She has seen bright red blood in the toilet bowl, she attributes this to hemorrhoids, occurs when she has frequent BMs. Gets pains in LLQ, she wonders if related to diveritula, started years ago. Has lup (more content not included)... Normal [facility] LIPID PANEL (OUTSIDE)on Cholesterol [Mass/Vol] 286 mg/dL [facility] Cholesterol in HDL [Mass/Vol] 44 mg/dL [facility] Cholesterol in LDL [Mass/Vol] 174 mg/dL [facility] LDL:HDL Ratio [facility] Non-HDL Cholesterol [facility] TC:HDL Ratio [facility] Triglyceride [Mass/Vol] 338 mg/dL [facility] VLDL [facility] Absolute lymphocyte countOrd ered By: Myke Bowers on 01-17-2025 Lymphocytes Auto (Unsp spec) [#/Vol] 2.11 10*3/uL 0.83-4.51 [facility] Absolute neutrophil countOrd ered By: Myke Bowers on 01-17-2025 Neutrophils (Bld) [#/Vol] 3.3 10*3/uL 2.0-7.7 [facility] Anion gap in Serum or Plasma Ordered By: Myke Bowers on 01-17-2025 Anion gap [Moles/Vol] 11 mmol/L 5-15 [facility] Automated lymphocyte count a s percentage of total leukocytesOrdered By: Myke Bowers on 01-17-2025 Lymphocytes/100 WBC Auto (Unsp spec) 34.7 % 19-41 [facility] BUN/creatinine ratioOrdered By: Myke Bowers on 01-17-2025 Urea nitrogen/Creatinine [Mass ratio] 25.0 mg/mg High 10-20 [facility] Basophil percentageOrdered B y: Myke Bowers on 01-17-2025 Basophils/100 WBC (Bld) 0.5 % 0-1 [facility] Bilirubin, totalOrdered By: Myke Bowers on 01-17-2025 Bilirubin [Mass/Vol] 0.24 mg/dL 0.00-1.30 [facility] CBC W/Diff, Automatedon 04-0 Absolute Lymph 2.11 X10 3/uL Normal 0.83-4.51 [facility] Comment on above: Performed By: #### L 100.0100, L506.1001, L300.3900, L501.6710, L500.4100, L500.4050 #### [facility] [address] [place], [address] Absolute Neut 3.3 X10 3/uL Normal 2.0-7.7 [facility] Comment on above: Performed By: #### L 100.0100, L506.1001, L300.3900, L501.6710, L500.4100, L500.4050 #### [facility] [address] [place], [address] Basophils/100 WBC (Bld) 0.5 % Normal 0-1 [facility] Comment on above: Performed By: #### L 100.0100, L506.1001, L300.3900, L501.6710, L500.4100, L500.4050 #### [facility] [address] [place], [address] Eosinophils/100 WBC (Bld) 1.0 % Normal 0-5 [facility] Comment on above: Performed By: #### L 100.0100, L506.1001, L300.3900, L501.6710, L500.4100, L500.4050 #### [facility] [address] [place], [address] Erythrocyte distribution width (RBC) [Ratio] 13.8 % Normal 11.6-14.6 [facility] Comment on above: Performed By: #### L 100.0100, L506.1001, L300.3900, L501.6710, L500.4100, L500.4050 #### [facility] [address] [place], [address] Hematocrit (Bld) [Volume fraction] 45.7 % Normal 37-47 [facility] Comment on above: Performed By: #### L 100.0100, L506.1001, L300.3900, L501.6710, L500.4100, L500.4050 #### [facility] [address] [place], [address] Hemoglobin (Bld) [Mass/Vol] 14.8 g/dL Normal 12.0-15.0 [facility] Comment on above: Performed By: #### L 100.0100, L506.1001, L300.3900, L501.6710, L500.4100, L500.4050 #### [facility] [address] [place], [address] IG% 0.500 Normal 0.0-0.9 [facility] Comment on above: Result Comment: IG% - Immature Granulocytes (promyelocytes, myelocytes and metamyelocytes) > 1% indicates that a LEFT SHIFT is Present. Performed By: #### L 100.0100, L506.1001, L300.3900, L501.6710, L500.4100, L500.4050 #### [facility] [address] [place], [address] Lymphocytes/100 WBC (Bld) 34.7 % Normal 19-41 [facility] Comment on above: Performed By: #### L 100.0100, L506.1001, L300.3900, L501.6710, L500.4100, L500.4050 #### [facility] [address] [place], [address] MCH (RBC) [Entitic mass] 29.3 pg Normal 27.0-32.0 [facility] Comment on above: Performed By: #### L 100.0100, L506.1001, L300.3900, L501.6710, L500.4100, L500.4050 #### [facility] [address] [place], [address] MCHC (RBC) [Mass/Vol] 32.4 g/dL Normal 32-36 [facility] Comment on above: Performed By: #### L 100.0100, L506.1001, L300.3900, L501.6710, L500.4100, L500.4050 #### [facility] [address] [place], [address] MCV (RBC) [Entitic vol] 90.5 fL Normal 81-99 [facility] Comment on above: Performed By: #### L 100.0100, L506.1001, L300.3900, L501.6710, L500.4100, L500.4050 #### [facility] [address] [place], [address] Monocytes/100 WBC (Bld) 8.7 % Normal 0-10 [facility] Comment on above: Performed By: #### L 100.0100, L506.1001, L300.3900, L501.6710, L500.4100, L500.4050 #### [facility] [address] [place], [address] Neutrophils/100 WBC (Bld) 54.6 % Normal 47-70 [facility] Comment on above: Performed By: #### L 100.0100, L506.1001, L300.3900, L501.6710, L500.4100, L500.4050 #### [facility] [address] [place], [address] Nucleated RBC (Bld) [#/Vol] 0 10*3/uL Normal 0-5 [facility] Comment on above: Performed By: #### L 100.0100, L506.1001, L300.3900, L501.6710, L500.4100, L500.4050 #### [facility] [address] [place], [address] Platelet mean volume (Bld) [Entitic vol] 11.1 fL Normal 6.2-12.0 [facility] Comment on above: Performed By: #### L 100.0100, L506.1001, L300.3900, L501.6710, L500.4100, L500.4050 #### [facility] [address] [place], [address] Platelets (Bld) [#/Vol] 237 10*3/uL Normal 150-450 [facility] Comment on above: Performed By: #### L 100.0100, L506.1001, L300.3900, L501.6710, L500.4100, L500.4050 #### [facility] [address] [place], [address] RBC (Bld) [#/Vol] 5.05 10*6/uL Normal 4.2-5.4 [facility] Comment on above: Performed By: #### L 100.0100, L506.1001, L300.3900, L501.6710, L500.4100, L500.4050 #### [facility] [address] [place], [address] RDW SD 46.0 fl High 35.1-43.9 [facility] Comment on above: Performed By: #### L 100.0100, L506.1001, L300.3900, L501.6710, L500.4100, L500.4050 #### [facility] [address] [place], [address] WBC (Bld) [#/Vol] 6.1 10*3/uL Normal 4.4-11.0 [facility] Comment on above: Performed By: #### L 100.0100, L506.1001, L300.3900, L501.6710, L500.4100, L500.4050 #### [facility] [address] [place], [address] CRPon 01-17-2025 C-REACTIVE PROT < 3.00 Normal 0.0-3.0 [facility] Comment on above: Performed By: #### L 100.0100, L506.1001, L300.3900, L501.6710, L500.4100, L500.4050 #### [facility] [address] [place], [address] CRP [Mass/Vol]Ordered By: Dorie Bowers on 01-17-2025 C-Reactive Protein Extended Range < 3.00 mg/L 0.0-3.0 [facility] Calculated very low density lipoprotein (VLDL) cholesterol measurementOrdered By: Myke Bowers on 01-17-2025 Calculated very low density lipoprotein (VLDL) cholesterol measurement 68 mg/dL [facility] 540 [facility] VLDL Cholesterol 68 mg/dL [facility] 540 [facility] Carbon dioxide, total [Moles /volume] in Central venous bloodOrdered By: Myke Bowers on 01-17-2025 CO2 [Moles/Vol] 24.7 mmol/L 21.0-32.0 [facility] Chloride assayOrdered By: Dorie Bowers on 01-17-2025 Chloride [Moles/Vol] 104 mmol/L 98-108 [facility] Comprehensive Metabolic Prof ilon 01-17-2025 Albumin [Mass/Vol] 4.1 g/dL Normal 3.4-4.8 [facility] Comment on above: Performed By: #### L 100.0100, L506.1001, L300.3900, L501.6710, L500.4100, L500.4050 #### [facility] [address] [place], [address] Albumin/Globulin [Mass ratio] 1.4 {ratio} Normal 0.9-2.4 [facility] Comment on above: Performed By: #### L 100.0100, L506.1001, L300.3900, L501.6710, L500.4100, L500.4050 #### [facility] [address] [place], [address] ALK PHOS 60 U/L Normal 35-104 [facility] Comment on above: Performed By: #### L 100.0100, L506.1001, L300.3900, L501.6710, L500.4100, L500.4050 #### [facility] [address] [place], [address] ALT [Catalytic activity/Vol] 15 U/L Normal <=34 [facility] Comment on above: Performed By: #### L 100.0100, L506.1001, L300.3900, L501.6710, L500.4100, L500.4050 #### [facility] [address] [place], [address] AST [Catalytic activity/Vol] 19 U/L Normal <=31 [facility] Comment on above: Performed By: #### L 100.0100, L506.1001, L300.3900, L501.6710, L500.4100, L500.4050 #### [facility] [address] [place], [address] Bilirubin [Mass/Vol] 0.24 mg/dL Normal 0.00-1.30 [facility] Comment on above: Performed By: #### L 100.0100, L506.1001, L300.3900, L501.6710, L500.4100, L500.4050 #### [facility] [address] [place], [address] BUN/CRE 25.0 RATIO High 10-20 [facility] Comment on above: Performed By: #### L 100.0100, L506.1001, L300.3900, L501.6710, L500.4100, L500.4050 #### [facility] [address] [place], [address] Calcium [Mass/Vol] 9.7 mg/dL Normal 7.6-11.0 [facility] Comment on above: Performed By: #### L 100.0100, L506.1001, L300.3900, L501.6710, L500.4100, L500.4050 #### [facility] [address] [place], [address] Chloride [Moles/Vol] 104 mmol/L Normal 98-108 [facility] Comment on above: Performed By: #### L 100.0100, L506.1001, L300.3900, L501.6710, L500.4100, L500.4050 #### [facility] [address] [place], [address] CO2 [Moles/Vol] 24.7 mmol/L Normal 21.0-32.0 [facility] Comment on above: Performed By: #### L 100.0100, L506.1001, L300.3900, L501.6710, L500.4100, L500.4050 #### [facility] [address] [place], [address] Creatinine [Mass/Vol] 0.67 mg/dL Low 0.70-1.20 [facility] Comment on above: Performed By: #### L 100.0100, L506.1001, L300.3900, L501.6710, L500.4100, L500.4050 #### [facility] [address] [place], [address] GAP 11 Normal 5-15 [facility] Comment on above: Performed By: #### L 100.0100, L506.1001, L300.3900, L501.6710, L500.4100, L500.4050 #### [facility] [address] [place], [address] GFR/1.73 sq M.predicted among non-blacks MDRD (S/P/Bld) [Vol rate/Area] 95 mL/min/{1.73_m2} Normal >60 [facility] Comment on above: Result Comment: mL/m in/1.73m2 CKD-EPI Creatinine Equation (2020) Performed By: #### L 100.0100, L506.1001, L300.3900, L501.6710, L500.4100, L500.4050 #### [facility] [address] [place], [address] Globulin (S) [Mass/Vol] 2.9 g/dL Normal 2.2-4.2 [facility] Comment on above: Performed By: #### L 100.0100, L506.1001, L300.3900, L501.6710, L500.4100, L500.4050 #### [facility] [address] [place], [address] Glucose [Mass/Vol] 160 mg/dL High 70-99 [facility] Comment on above: Performed By: #### L 100.0100, L506.1001, L300.3900, L501.6710, L500.4100, L500.4050 #### [facility] [address] [place], [address] Potassium [Moles/Vol] 4.2 mmol/L Normal 3.3-5.1 [facility] Comment on above: Performed By: #### L 100.0100, L506.1001, L300.3900, L501.6710, L500.4100, L500.4050 #### [facility] [address] [place], [address] Sodium [Moles/Vol] 140 mmol/L Normal 133-145 [facility] Comment on above: Performed By: #### L 100.0100, L506.1001, L300.3900, L501.6710, L500.4100, L500.4050 #### [facility] [address] [place], [address] T PROT 7.0 g/dL Normal 5.9-8.4 [facility] Comment on above: Performed By: #### L 100.0100, L506.1001, L300.3900, L501.6710, L500.4100, L500.4050 #### [facility] [address] [place], [address] Urea nitrogen [Mass/Vol] 17 mg/dL Normal 4-19 [facility] Comment on above: Performed By: #### L 100.0100, L506.1001, L300.3900, L501.6710, L500.4100, L500.4050 #### [facility] [address] [place], [address] Eosinophil percentageOrdered By: Myke Bowers on 01-17-2025 Eosinophils/100 WBC (Bld) 1.0 % 0-5 [facility] Erythrocyte distribution wid th (RBC) [Ratio]Ordered By: Myke Bowers on 01-17-2025 Erythrocyte distribution width (RBC) [Entitic vol] 46.0 fL High 35.1-43.9 [facility] Erythrocyte distribution wid th ratioOrdered By: Myke Bowers on 01-17-2025 Erythrocyte distribution width (RBC) [Ratio] 13.8 % 11.6-14.6 [facility] Erythrocyte distribution wid th standard deviationOrdered By: Myke Bowers on 01-17-2025 Erythrocyte distribution width (RBC) [Ratio] 46.0 fl High 35.1-43.9 [facility] GFR/1.73 sq M.predicted simone g non-blacks MDRD (S/P/Bld) [Vol rate/Area]Ordered By: Myke Bowers on 01-17-2025 Estimated GFR (MDRD) Non-Af Amer 95 >60 [facility] Comment on above: mL/min/1.73m2 CKD-EP I Creatinine Equation (2020) Glomerular filtration rate ( GFR) estimation/1.73 sq m using serum, plasma, or whole bOrdered By: Myke Bowers on 01-17-2025 GFR/1.73 sq M.predicted among non-blacks MDRD (S/P/Bld) [Vol rate/Area] 95 mL/min/{1.73_m2} >60 [facility] Comment on above: mL/min/1.73m2 CKD-EP I Creatinine Equation (2020) Hematocrit Auto (Bld) [Volum e fraction]Ordered By: Myke Bowers on 01-17-2025 Hematocrit (Bld) [Volume fraction] 45.7 % 37-47 [facility] Hemoglobin measurementOrdere d By: Myke Bowers on 01-17-2025 Hemoglobin (Bld) [Mass/Vol] 14.8 g/dL 12.0-15.0 [facility] Immature granulocytes/100 WB C Auto (Bld)Ordered By: Myke Boewrs on 01-17-2025 Immature granulocytes/100 WBC (Bld) 0.500 % 0.0-0.9 [facility] Comment on above: IG% - Immature Granu locytes (promyelocytes, myelocytes and metamyelocytes) > 1% indicates that a LEFT SHIFT is Present. International normalized rat io (INR) calculationOrdered By: Myke Bowers on 01-17-2025 INR Coag (Bld) [Relative time] 0.9 {INR} [facility] L506.1001on 01-17-2025 Vitamin D 25-OH 32.7 ng/mL Normal 30-100 [facility] Comment on above: Result Comment: Bela min D Status Deficiency: <20 ng/mL (50nmol/L) Insufficiency: 20-30 ng/mL (50-75 nmol/L) Sufficiency: 30-100 ng/mL (75-250 nmol/L) Toxicity: >100 ng/mL (>250 nmol/L) Performed By: #### L 100.0100, L506.1001, L300.3900, L501.6710, L500.4100, L500.4050 ####[facility] [id number] [place], [address] LDL calc ser/plasOrdered By: Myke Bowers on 01-17-2025 Cholesterol in LDL [Mass/Vol] 174 mg/dL [facility] Comment on above: Knetnmcltd=970-774 m g/dL & Higher Nkvy=429 mg/dL or greater LDL Cholesterol, Calculated 174 mg/dL [facility] Comment on above: Usqomoyzuk=008-093 m g/dL & Higher Unvt=143 mg/dL or greater Laboratory - Chemistry and C hemistry - challengeOrdered By: Myke Bowers on 01-17-2025 AST [Catalytic activity/Vol] 19 U/L <32 [facility] Lipid Profileon 01-17-2025 CHOL:HDL 6.47 Normal [facility] Comment on above: Performed By: #### L 100.0100, L506.1001, L300.3900, L501.6710, L500.4100, L500.4050 #### [facility] [address] [place], [address] Cholesterol [Mass/Vol] 286 mg/dL High <=200 [facility] Comment on above: Result Comment: Chol esterol level, Desirable <200 mg/dL Borderline high cholesterol 200-239 mg/dL High cholesterol >=240 mg/dL Recommendations of the NCEP Adult Treatment Panel for the following risk-cutoff thresholds for the [place] population. Performed By: #### L 100.0100, L506.1001, L300.3900, L501.6710, L500.4100, L500.4050 #### [facility] [address] [place], [address] Cholesterol in HDL [Mass/Vol] 44 mg/dL Normal [facility] Comment on above: Result Comment: Neema onal Cholesterol Education Program (NCEP) guidelines: <40 mg/dL: Low HDL-cholesterol (major risk factor for CHD) >= 60 mg/dL: High HDL-cholesterol (negative risk factor for CHD) HDL-cholesterol is affected by a number of factors, e.g. smoking, exercise, hormones, sex and age. Performed By: #### L 100.0100, L506.1001, L300.3900, L501.6710, L500.4100, L500.4050 #### [facility] [address] [place], [address] Cholesterol in LDL [Mass/Vol] 174 mg/dL Normal [facility] Comment on above: Result Comment: Bord ploddq=759-185 mg/dL Higher Hfsg=781 mg/dL or greater Performed By: #### L 100.0100, L506.1001, L300.3900, L501.6710, L500.4100, L500.4050 #### [facility] [address] [place], [address] Cholesterol in VLDL [Mass/Vol] 68 mg/dL High 5-40 [facility] Comment on above: Performed By: #### L 100.0100, L506.1001, L300.3900, L501.6710, L500.4100, L500.4050 #### [facility] [address] [place], [address] Triglyceride [Mass/Vol] 338 mg/dL High [facility] Comment on above: Result Comment: The drugs N-Acetylcysteine and Metamizole may falsely depress this assay. Normal range: <150 mg/dL Borderline High: 150-199 mg/dL High: 200-499 mg/dL Very High: >500 mg/dL Performed By: #### L 100.0100, L506.1001, L300.3900, L501.6710, L500.4100, L500.4050 #### [facility] [address] [place], [address] Lymphocytes Auto (Unsp spec) [#/Vol]Ordered By: Myke Bowers on 01-17-2025 Lymphocytes (Bld) [#/Vol] 2.11 10*3/uL 0.83-4.51 [facility] Lymphocytes/100 WBC Auto (Un sp spec)Ordered By: Myke Bowers on 01-17-2025 Lymphocytes/100 WBC (Bld) 34.7 % 19-41 [facility] MCV (mean corpuscular volume ) determinationOrdered By: Myke Bowers on 01-17-2025 MCV (RBC) [Entitic vol] 90.5 fL 81-99 [facility] Mean corpuscular hemoglobin (MCH) determinationOrdered By: Myke Bowers on 01-17-2025 MCH (RBC) [Entitic mass] 29.3 pg 27.0-32.0 [facility] Mean corpuscular hemoglobin concentration (MCHC) determinationOrdered By: Myke Bowers on 01-17-2025 MCHC (RBC) [Mass/Vol] 32.4 g/dL 32-36 [facility] Mean platelet volume determi nationOrdered By: Myke Bowers on 01-17-2025 Platelet mean volume (Bld) [Entitic vol] 11.1 fL 6.2-12.0 [facility] Monocyte percentageOrdered B y: Myke Bowers on 01-17-2025 Monocytes/100 WBC (Bld) 8.7 % 0-10 [facility] Neutrophil percentageOrdered By: Myke Bowers on 01-17-2025 Neutrophils/100 WBC (Bld) 54.6 % 47-70 [facility] Nucleated red blood cell per centageOrdered By: Myke Bowers on 01-17-2025 Nucleated RBC/100 WBC (Bld) [Ratio] 0 % 0-5 [facility] Platelet countOrdered By: Dorie Bowers on 01-17-2025 Platelets (Bld) [#/Vol] 237 10*3/uL 150-450 [facility] Potassium (Unsp spec) [Mass/ Vol]Ordered By: Myke Bowers on 01-17-2025 Potassium [Moles/Vol] 4.2 mmol/L 3.3-5.1 [facility] Potassium measurement (mass/ volume)Ordered By: Myke Bowers on 01-17-2025 Potassium (Unsp spec) [Mass/Vol] 4.2 mmol/L 3.3-5.1 [facility] Prothrombin Time w/INRon INR Coag (PPP) [Relative time] 0.9 {INR} Normal [facility] Comment on above: Performed By: #### L 100.0100, L506.1001, L300.3900, L501.6710, L500.4100, L500.4050 #### [facility] [address] [place], [place], [address] PT Coag (PPP) [Time] 11.7 s Normal 11.7-14.9 [facility] Comment on above: Performed By: #### L 100.0100, L506.1001, L300.3900, L501.6710, L500.4100, L500.4050 #### [facility] [address] [place], [place], [address] Prothrombin timeOrdered By: Myke Bowers on 01-17-2025 PT Coag (PPP) [Time] 11.7 s 11.7-14.9 [facility] RBC Auto (Bld) [#/Vol]Ordere d By: Myke Bowers on 01-17-2025 RBC (Bld) [#/Vol] 5.05 10*6/uL 4.2-5.4 [facility] Screening total cholesterol/ high density lipoprotein (HDL) cholesterol ratioOrdered By: Myke Bowers on 01-17-2025 Cholesterol.total/Fernanda sterol in HDL [Mass ratio] 6.47 {ratio} [facility] Serum creatinine measurement (mass/volume)Ordered By: Myke Bowers on 01-17-2025 Creatinine [Mass/Vol] 0.67 mg/dL Low 0.70-1.20 [facility] Serum globulin measurementOr dered By: Myke Bowers on 01-17-2025 Globulin (S) [Mass/Vol] 2.9 g/dL 2.2-4.2 [facility] Serum glucose measurement (m ass/volume)Ordered By: Myke Bowers on 01-17-2025 Glucose [Mass/Vol] 160 mg/dL High 70-99 [facility] Serum or plasma C reactive p rotein measurement (mass/volume)Ordered By: Myke Bowers on 01-17-2025 CRP [Mass/Vol] mg/L 0.0-3.0 [facility] Serum or plasma alanine mcgovern otransferase (ALT) measurementOrdered By: Myke Bowers on 01-17-2025 ALT [Catalytic activity/Vol] 15 U/L <35 [facility] Serum or plasma albumin enoch urement (mass/volume)Ordered By: Myke Bowers on 01-17-2025 Albumin [Mass/Vol] 4.1 g/dL 3.4-4.8 [facility] Serum or plasma albumin/glob ulin mass ratioOrdered By: Myke Bowers on 01-17-2025 Albumin/Globulin [Mass ratio] 1.4 {ratio} 0.9-2.4 [facility] Serum or plasma alkaline conner sphatase measurementOrdered By: Myke Bowers on 01-17-2025 ALP [Catalytic activity/Vol] 60 U/L 35-104 [facility] Serum or plasma calcium enoch urement (mass/volume)Ordered By: Myke Bowers on 01-17-2025 Calcium [Mass/Vol] 9.7 mg/dL 7.6-11.0 [facility] Serum or plasma cholesterol in HDL measurement (mass/volume)Ordered By: Myke Bowers on 01-17-2025 Cholesterol in HDL [Mass/Vol] 44 mg/dL >40 [facility] Comment on above: National Cholesterol Education Program (NCEP) guidelines:<40 mg/dL: Low HDL-cholesterol (major risk factor for CHD)>= 60 mg/dL: High HDL-cholesterol (negative risk factor for CHD)HDL-cholesterol is affected by a number of factors, e.g. smoking, exercise, hormones, sex and age. Serum or plasma cholesterol measurement (mass/volume)Ordered By: Myke Bowers on 01-17-2025 Cholesterol [Mass/Vol] 286 mg/dL High <201 [facility] Comment on above: Cholesterol level, D esirable <200 mg/dLBorderline high cholesterol 200-239 mg/dLHigh cholesterol >=240 mg/dLRecommendations of the NCEP Adult Treatment Panel for the following risk-cutoff thresholds for the [place] population. Serum or plasma urea nitroge n measurement (mass/volume)Ordered By: Myke Bowers on 01-17-2025 Urea nitrogen [Mass/Vol] 17 mg/dL 4-19 [facility] Sodium levelOrdered By: Saulo Bowers on 01-17-2025 Sodium [Moles/Vol] 140 mmol/L 133-145 [facility] Total proteinOrdered By: Isai Bowers on 01-17-2025 Protein [Mass/Vol] 7.0 g/dL 5.9-8.4 [facility] Triglycerides measurementOrd ered By: Myke Bowers on 01-17-2025 Triglyceride [Mass/Vol] 338 mg/dL High <199 [facility] Comment on above: The drugs N-Acetylcy steine and Metamizole may falsely depress this assay. Normal range: <150 mg/dLBorderline High: 150-199 mg/dLHigh: 200-499 mg/dLVery High: >500 mg/dL Vitamin D, 25-hydroxyOrdered By: Myke Bowers on 01-17-2025 Vitamin D 25-Hydroxy 32.7 ng/mL 30-100 [facility] Comment on above: Vitamin D StatusDefi ciency: <20 ng/mL (50nmol/L)Insufficiency: 20-30 ng/mL (50-75 nmol/L)Sufficiency: 30-100 ng/mL (75-250 nmol/L)Toxicity: >100 ng/mL (>250 nmol/L) White blood cell (WBC) count Ordered By: Myke Bowers on 01-17-2025 WBC (Bld) [#/Vol] 6.1 10*3/uL 4.4-11.0 [facility] CNOVon 12-19-2024 CNOV Office Visit (FAMPWS ) VILMA DIAL I ([id number]) 1955 F Date Time Provider Department 12/19/24 1:00 PM BRENDA TOTH During your visit today, we recorded the following information about you: Temperature Pulse Blood pressure Weight 99.2 degrees 69/minute 130/84 133.8 kg Brenda Toth, JULIO.[employer] 12/19/2024 1:32 PM Signed This is a 69 year old female who presents today with: Patient presents with: Hypertension: 4 week medication follow up HISTORY OF PRESENT ILLNESS: Vilma Dial is a 69 year old female. Patient presents with: Hypertension: 4 week medication follow up Not taking metoprolol. Worried about BP falling when she is sleeping. States BP always up at the doctor's office. HTN: Patient is compliant with meds No. Did not take metoprolol Monitors bp at home: Yes. SBP 115-145/ DBP 276 Denies side effects: No. Chest pain: No. Dyspnea: No. Edema: Yes. Palpitations: No. Syncope: No. Headache: No. Dizziness: No. PAST MEDICAL HISTORY: PAST MEDICAL HISTORY Diagnosis Date Degenerative disc disease, lumbar Diabetes (HCC) Fibromyalgia GERD (gastroesophageal reflux disease) Hypercholesterolemia Insomnia Lupus Osteoarthritis PAST SURGICAL HISTORY Procedure Laterality Date ADENOIDECTOMY PRIMARY Adenoidectomy APPENDECTOMY CHOLECYSTECTOMY Cholecystectomy COLONOSCOPY 12/24/10 TVA COLONOSCOPY 02/22/13 no polyps COLONOSCOPY FLX DX W/COLLJ SPEC WHEN PFRMD 04/30/2016 Colonoscopy COLONOSCOPY FLX DX W/COLLJ SPEC WHEN PFRMD 07/11/2019 repeat in 5 years ESOPHAGOGASTRODUODENOSC OPY TRANSORAL DIAGNOSTIC 04/30/2016 EGD ESOPHAGOGASTRODUODENOSC OPY TRANSORAL DIAGNOSTIC 07/11/2019 EGD LIG/TRNSXJ FLP TUBE ABDL/VAG APPR UNI/BI Tubal ligation PAST SURGICAL HISTORY OF colon polypectomy PAST SURGICAL HISTORY OF hernia repair TONSILLECTOMY PRIMARY/SECONDARY Tonsillectomy TOTAL ABDOMINAL HYSTERECT W/WO RMVL TUBE OVARY Hysterectomy, JESSICA supracervical ALLERGIES Chlorthalidone, Ciprofloxacin, Januvia [Sitagliptin], Jardiance [Empagliflozin], Macrodantin [Nitrofurantoin], Ozempic [Semaglutide], Pravastatin, Ultram [Tramadol Hcl], and Zanaflex [Tizanidine] MEDICATIONS Current Outpatient Medications Medication Sig magnesium oxide (MAG-OX) 400 mg (241.3 mg magnesium) tablet Take 1 tablet by mouth once daily. losartan (COZAAR) 100 mg tablet Take 1 tablet by mouth once daily. nefazodone (SERZONE) 200 mg tablet Take 0.5 tablets by mouth once daily AND 1 tablet daily at bedtime. omeprazole (PRILOSEC) 40 mg capsule Take 1 capsule by mouth every morning. metoprolol succinate ER (TOPROL XL) 50 mg 24 hr tablet Take 1 tablet by mouth once daily. glimepiride (AMARYL) 2 mg tablet Take 2 mg by mouth daily with breakfast. fenofibrate nanocrystallized (TRICOR) 48 mg tablet etodolac (LODINE) 400 mg tablet Take 1 tablet by mouth every 12 hours. PRN vitamin E mixed 400 unit cap Take by mouth. metFORMIN (GLUCOPHAGE) 1,000 mg tablet Take 1,000 mg by mouth twice daily. dapagliflozin (FARXIGA) 10 mg tablet Take 10 mg by mouth once daily. blood sugar diagnostic (BLOOD GLUCOSE TEST) test strip Test blood sugar(s) bid times daily. Dx: Type 2 DM - Controlled E11.9 Insulin: No Cholecalciferol, Vitamin D3, 25 mcg (1,000 unit) cap Take 1,000 Units by mouth once daily. baclofen (LIORESAL) 10 mg tablet hydrocortisone (ANUSOL-HC) 2.5 % rectal cream by RECTAL route two times a day. PRN Diclofenac Sodium (VOLTAREN) 1 % gel Apply 1 g to affected area twice daily. OMEGA-3 FATTY ACIDS/FISH OIL (OMEGA 3 FISH OIL ORAL) Take by mouth. MULTIVITAMIN TAB Take one(1) tablet daily. No current facility-administered medications for this visit. FAMILY HISTORY Problem Relation Age of Onset Heart Mother Diabetes Mother COPD Mother other (lupus) Mother other (rheumatoid) Mother Heart Sister SD at age 41 Diabetes Sister Aneurysm Sister Abdominal other (aortic stenosis) Sister other (spesis) Sister Social History Tobacco Use Smoking status: Never Passive exposure: Current Smokeless tobacco: Never Vaping Use Vaping status: Never Used Substance Use Topics Alcohol use: No Drug use: No EXAM: BP 158/70 Pulse 69 Temp 37.3 ?C (99.2 ?F) (Right Tympanic) Wt 133.8 kg (295 lb) LMP 11/09/2005 SpO2 95% BMI 51.37 kg/m? PHYSICAL EXAM: Physical Exam Vitals reviewed. Constitutional: Appearance: Normal appearance. HENT: Head: Normocephalic. Cardiovascular: Rate and Rhythm: Normal rate and regular rhythm. Pulses: Normal pulses. Heart sounds: Normal heart sounds. Pulmonary: Effort: Pulmonary effort is normal. Breath sounds: Normal breath sounds. Abdominal: General: Bowel sounds are normal. Palpations: Abdomen is soft. Tenderness: There is abdominal tenderness. There is guarding. There is no rebound. Musculoskeletal: Right low (more content not included)... Normal [facility] 11-22-2024 [facility] Telephone ([facility]) VILMA DIAL I ([id number]) 1955 F Date Time Provider Department 11/22/24 BRENDA TOTH [facility] During your visit today, we recorded the following information about you: Brenda Toth, JULIO.[facility] 11/22/2024 5:00 PM Signed Please let patient know that her labs showed her triglycerides are very high at 410. Please follow diet low in saturated fat by eliminating fried foods and choosing only lean meat/skim dairy products. Her magnesium level is low at 1.6. I am ordering magnesium oxide 400 mg to take daily. We should recheck her magnesium level in a month. Urine for microalbumin creatinine ratio is elevated. This indicates some damage to your kidneys from diabetes. Please continue losartan as it will protect your kidneys.. Farxiga does also protect your kidneys. All other labs are normal. Sara Cardoza [facility] 11/23/2024 9:50 AM Signed TC to patient who verbalized understanding of providers message below and is agreeable to providers plan/instructions. WENDY Aceves Allergies As of Date: 11/22/2024 Noted Allergy Reaction CHLORTHALIDONE 08/15/2024 16 - Unknown Comments: Cramps and low magnesium CIPROFLOXACIN 10/26/2014 14 - Other: See Comments Comments: Change in urine color JANUVIA (SITAGLIPTIN) 02/22/2018 8 - GI Upset JARDIANCE (EMPAGLIFLOZIN) 05/04/2019 5 - Intolerance MACRODANTIN (NITROFURANTOIN) 11/20/2005 OZEMPIC (SEMAGLUTIDE) 09/17/2021 16 - Unknown PRAVASTATIN 08/25/2022 17 - Myalgia ULTRAM (TRAMADOL HCL) 01/07/2013 7 - Swelling ZANAFLEX (TIZANIDINE) 09/17/2021 16 - Unknown Comments: Heart racing Date Reviewed: 11/21/2024 Reviewed by: Caroline Fried LPN - Fully Assessed Reason for Visit: Results [95] Cmt: Labs Primary Visit Diagnosis:Hypomagnesemi a [E83.42] Order(s):magnesium oxide (MAG-OX) 400 mg (241.3 mg magnesium) tabletTake 1 tablet by mouth once daily.Disp: 90 tabletRfl: 3 MAGNESIUM [SQMG1] Order #: [id number] FUTURE Prescriptions as of 11/23/2024 - magnesium oxide (MAG-OX) 400 mg (241.3 mg magnesium) tablet Take 1 tablet by mouth once daily. - losartan (COZAAR) 100 mg tablet Take 1 tablet by mouth once daily. - nefazodone (SERZONE) 200 mg tablet Take 0.5 tablets by mouth once daily AND 1 tablet daily at bedtime. - omeprazole (PRILOSEC) 40 mg capsule Take 1 capsule by mouth every morning. - metoprolol succinate ER (TOPROL XL) 50 mg 24 hr tablet Take 1 tablet by mouth once daily. - glimepiride (AMARYL) 2 mg tablet Take 2 mg by mouth daily with breakfast. - fenofibrate nanocrystallized (TRICOR) 48 mg tablet - etodolac (LODINE) 400 mg tablet Take 1 tablet by mouth every 12 hours. PRN - vitamin E mixed 400 unit cap Take by mouth. - metFORMIN (GLUCOPHAGE) 1,000 mg tablet Take 1,000 mg by mouth twice daily. - dapagliflozin (FARXIGA) 10 mg tablet Take 10 mg by mouth once daily. - blood sugar diagnostic (BLOOD GLUCOSE TEST) test strip Test blood sugar(s) bid times daily. Dx: Type 2 DM - Controlled E11.9 Insulin: No - Cholecalciferol, Vitamin D3, 25 mcg (1,000 unit) cap Take 1,000 Units by mouth once daily. - baclofen (LIORESAL) 10 mg tablet - hydrocortisone (ANUSOL-HC) 2.5 % rectal cream by RECTAL route two times a day. PRN - Diclofenac Sodium (VOLTAREN) 1 % gel Apply 1 g to affected area twice daily. - OMEGA-3 FATTY ACIDS/FISH OIL (OMEGA 3 FISH OIL ORAL) Take by mouth. - MULTIVITAMIN TAB Take one(1) tablet daily. Problem List As Of Date 11/22/2024 Noted Resolved Diffuse myofascial pain syndrome [M79.18] 01/09/2016 Pain of both hip joints [M25.551, M25.552] 01/09/2016 DDD (degenerative disc disease), thoracic [M51.*01/09/2016 Type 2 diabetes mellitus with diabetic polyneur*04/21/2016 Morbid obesity with BMI of 50.0-59.9, adult (HC*06/18/2021 Primary hypertension [I10] 09/17/2021 Mixed hyperlipidemia [E78.2] 09/17/2021 TERI (obstructive sleep apnea) [G47.33] 09/17/2021 Systemic lupus erythematosus (HCC) [M32.9] 09/17/2021 History of colonic polyps [Z86.0100] 09/17/2021 Polyneuropathy [G62.9] 03/10/2022 Flow murmur [R01.1] 03/12/2022 Fatty liver [K76.0] 11/19/2022 11/20/2023 Hypomagnesemia [E83.42] 11/20/2022 Portal hypertensive gastropathy (HCC) [K76.6, K*05/19/2023 Mild episode of recurrent major depressive diso*05/19/2023 Vitamin D deficiency [E55.9] 05/28/2017 Diagnosed: 08/17/2023 Uncontrolled type 2 diabetes mellitus with hype*08/02/2020 Diagnosed: 08/17/2023 Irritable bowel syndrome [K58.9] 11/07/2022 Diagnosed: 08/17/2023 Abnormal cardiovascular stress test [R94.39] 11/20/2023 Diagnosed: 11/20/2023 Chest pain [R07.9] 11/20/2023 11/20/2023 Diagnosed: 11/20/2023 Class 3 severe obesity due to excess calories w*08/18/2023 11/20/2023 Diagnosed: 11/20/2023 Diverticular disease [K57.90] 11/20/2023 Diagnosed: 11/20/2023 Fibromyalgia [M79.7] 08/18/2023 Diagnosed: 11/20/2023 Left l (more content not included)... Normal [facility] ALBUMIN/CREATININE RATIO, UR INEon 11-21-2024 Albumin DL <= 20 mg/L (U) [Mass/Vol] 52.7 mg/L Normal [facility] Comment on above: Order Comment: Speci men Type: URINE SPECIMEN Ordering Facility: [facility] Address: [address] [place] [address] Performed By: #### U ACR #### [facility] CLIA [id number] [address] [place] [address] [place] Albumin/Creatinine (U) [Mass ratio] 204 mg/g High <30 [facility] Comment on above: Order Comment: Speci men Type: URINE SPECIMEN Ordering Facility: [facility] Address: [address] [place] [address] Result Comment: Adul t Male and Female Nephrotic Criteria: <30 mg/g is considered normal to mildly increased 30-300 mg/g is considered moderately increased >300 mg/g is considered severely increased KDIGO. (2013). KDIGO 2012 Clinical Practice Guideline for the Evaluation and Management of Chronic Kidney Disease. Official Journal of the International Society of Nephrology, 3(1), 1-150. Performed By: #### U ACR #### [facility] CLIA [id number] [address] [place] [address] [place] Creatinine (U) [Mass/Vol] 25.8 mg/dL Normal 20.0-300.0 [facility] Comment on above: Order Comment: Speci men Type: URINE SPECIMEN Ordering Facility: [facility] Address: [address] [place] [address] Performed By: #### U ACR #### [facility] CLIA [id number] [address] [place] [address] [place] CBC W Auto Differential pane l (Bld)on 11-21-2024 Basophils (Bld) [#/Vol] 0.03 10*3/uL Normal <0.11 [facility] Comment on above: Order Comment: Speci men Type: BLOOD SPECIMEN Ordering Facility: [facility] Address: [address] [place] [address] Performed By: #### 2 4321-2, #### [facility] CLIA [id number] [address] [place] [address] [place] Basophils/100 WBC (Bld) 0.4 % Normal [facility] Comment on above: Order Comment: Speci men Type: BLOOD SPECIMEN Ordering Facility: [facility] Address: [address] [place] [address] Performed By: #### 2 432-2, #### [facility] CLIA [id number] [address] [place] [address] [place] Differential cell count method Nom (Bld) Auto Normal [facility] Comment on above: Order Comment: Speci men Type: BLOOD SPECIMEN Ordering Facility: [facility] Address: [address] [place] [address] Performed By: #### 2 432-2, #### [facility] CLIA [id number] [address] [place] [address] [place] Eosinophils (Bld) [#/Vol] 0.07 10*3/uL Normal <0.46 [facility] Comment on above: Order Comment: Speci men Type: BLOOD SPECIMEN Ordering Facility: [facility] Address: [address] [place] [address] Performed By: #### 2 4321-2, #### [facility] CLIA [id number] [address] [place] [address] [place] Eosinophils/100 WBC (Bld) 0.9 % Normal [facility] Comment on above: Order Comment: Speci men Type: BLOOD SPECIMEN Ordering Facility: [facility] Address: [address] [place] [address] Performed By: #### 2 2, #### [facility] CLIA [id number] [address] [place] [address] [place] Erythrocyte distribution width (RBC) [Ratio] 13.7 % Normal 11.5-15.0 [facility] Comment on above: Order Comment: Speci men Type: BLOOD SPECIMEN Ordering Facility: [facility] Address: [address] [place] [address] Performed By: #### 2 4320-11, #### [facility] CLIA [id number] [address] [place] [address] [place] Hematocrit (Bld) [Volume fraction] 47.7 % High 36.0-46.0 [facility] Comment on above: Order Comment: Speci men Type: BLOOD SPECIMEN Ordering Facility: [facility] Address: [address] [place] [address] Performed By: #### 2 4320-11, #### [facility] CLIA [id number] [address] [place] [address] [place] Hemoglobin (Bld) [Mass/Vol] 15.4 g/dL Normal 11.5-15.5 [facility] Comment on above: Order Comment: Speci men Type: BLOOD SPECIMEN Ordering Facility: [facility] Address: [address] [place] [address] Performed By: #### 2 4322, #### [facility] CLIA [id number] [address] [place] [address] [place] Immature granulocytes (Bld) [#/Vol] 10*3/uL Normal <0.10 [facility] Comment on above: Order Comment: Speci men Type: BLOOD SPECIMEN Ordering Facility: [facility] Address: [address] [place] [address] Performed By: #### 2 432-2, #### [facility] CLIA [id number] [address] [place] [address] [place] Immature granulocytes/100 WBC (Bld) 0.3 % Normal [facility] Comment on above: Order Comment: Speci men Type: BLOOD SPECIMEN Ordering Facility: [facility] Address: [address] [place] [address] Performed By: #### 2 2, #### [facility] CLIA [id number] [address] [place] [address] [place] Lymphocytes (Bld) [#/Vol] 2.40 10*3/uL Normal 1.00-4.00 [facility] Comment on above: Order Comment: Speci men Type: BLOOD SPECIMEN Ordering Facility: [facility] Address: [address] [place] [address] Performed By: #### 2 2, #### [facility] CLIA [id number] [address] [place] [address] [place] Lymphocytes/100 WBC (Bld) 31.9 % Normal [facility] Comment on above: Order Comment: Speci men Type: BLOOD SPECIMEN Ordering Facility: [facility] Address: [address] [place] [address] Performed By: #### 2 4320-2, #### [facility] CLIA [id number] [address] [place] [address] [place] MCH (RBC) [Entitic mass] 29.2 pg Normal 26.0-34.0 [facility] Comment on above: Order Comment: Speci men Type: BLOOD SPECIMEN Ordering Facility: [facility] Address: [address] [place] [address] Performed By: #### 2 4320-2, #### [facility] CLIA [id number] [address] [place] [address] [place] MCHC (RBC) [Mass/Vol] 32.3 g/dL Normal 30.5-36.0 [facility] Comment on above: Order Comment: Speci men Type: BLOOD SPECIMEN Ordering Facility: [facility] Address: [address] [place] [address] Performed By: #### 2 4320-2, #### [facility] CLIA [id number] [address] [place] [address] [place] MCV (RBC) [Entitic vol] 90.5 fL Normal 80.0-100.0 [facility] Comment on above: Order Comment: Speci men Type: BLOOD SPECIMEN Ordering Facility: [facility] Address: [address] [place] [address] Performed By: #### 2 2, #### [facility] CLIA [id number] [address] [place] [address] [place] Monocytes (Bld) [#/Vol] 0.53 10*3/uL Normal <0.87 [facility] Comment on above: Order Comment: Speci men Type: BLOOD SPECIMEN Ordering Facility: [facility] Address: [address] [place] [address] Performed By: #### 2 2, #### [facility] CLIA [id number] [address] [place] [address] [place] Monocytes/100 WBC (Bld) 7.0 % Normal [facility] Comment on above: Order Comment: Speci men Type: BLOOD SPECIMEN Ordering Facility: [facility] Address: [address] [place] [address] Performed By: #### 2 4320-2, #### [facility] CLIA [id number] [address] [place] [address] [place] Neutrophils (Bld) [#/Vol] 4.48 10*3/uL Normal 1.45-7.50 [facility] Comment on above: Order Comment: Speci men Type: BLOOD SPECIMEN Ordering Facility: [facility] Address: [address] [place] [address] Performed By: #### 2 4320-2, #### [facility] CLIA [id number] [address] [place] [address] [place] Neutrophils/100 WBC (Bld) 59.5 % Normal [facility] Comment on above: Order Comment: Speci men Type: BLOOD SPECIMEN Ordering Facility: [facility] Address: [address] [place] [address] Performed By: #### 2 2, #### [facility] CLIA [id number] [address] [place] [address] [place] Nucleated RBC (Bld) [#/Vol] 10*3/uL Normal <0.01 [facility] Comment on above: Order Comment: Speci men Type: BLOOD SPECIMEN Ordering Facility: [facility] Address: [address] [place] [address] Performed By: #### 2 4320-2, #### [facility] CLIA [id number] [address] [place] [address] [place] Nucleated RBC/100 WBC (Bld) [Ratio] 0.0 /100 WBC Normal [facility] Comment on above: Order Comment: Speci men Type: BLOOD SPECIMEN Ordering Facility: [facility] Address: [address] [place] [address] Performed By: #### 2 4320-2, #### [facility] CLIA [id number] [address] [place] [address] [place] Platelet mean volume (Bld) [Entitic vol] 11.0 fL Normal 9.0-12.7 [facility] Comment on above: Order Comment: Speci men Type: BLOOD SPECIMEN Ordering Facility: [facility] Address: [address] [place] [address] Performed By: #### 2 4320-2, #### [facility] CLIA [id number] [address] [place] [address] [place] Platelets (Bld) [#/Vol] 225 10*3/uL Normal 150-400 [facility] Comment on above: Order Comment: Speci men Type: BLOOD SPECIMEN Ordering Facility: [facility] Address: [address] [place] [address] Performed By: #### 2 4320-11, #### [facility] CLIA [id number] [address] [place], [place] [id number] [place] RBC (Bld) [#/Vol] 5.27 10*6/uL High 3.90-5.[address] [facility] Comment on above: Order Comment: Speci men Type: BLOOD SPECIMEN Ordering Facility: [facility] Address: [address] [place] [address] Performed By: #### 2 2, #### [facility] CLIA [id number] [address] [place] [address] [place] WBC (Bld) [#/Vol] 7.53 10*3/uL Normal 3.70-11.[address] [facility] Comment on above: Order Comment: Speci men Type: BLOOD SPECIMEN Ordering Facility: [facility] Address: [address] [place] [address] Performed By: #### 2 2, #### [facility] CLIA [id number] [address] [facility] [place] [address] [place] CNOVon 11-21-2024 CNOV Office Visit (FAMPWS ) VILMA DIAL I ([id number]) 1955 F Date Time Provider Department 11/21/24 10:40 AM BRENDA TOTH During your visit today, we recorded the following information about you: Pulse Blood pressure Weight 73/minute 152/82 136.5 kg Brenda Toth APRN.[employer] 11/21/2024 11:19 AM Signed This is a 69 year old female who presents today with: Patient presents with: 6 Month Exam ER F/U: HTN had pain in jaw and left arm. Brings readings from home today. HISTORY OF PRESENT ILLNESS: Vilma Dial is a 69 year old female. Patient presents with: 6 Month Exam ER F/U: HTN had pain in jaw and left arm. Brings readings from home today. Went to see endocrinology and blood pressure was high. She attributed to white coat syndrome. The following day, blood pressure jumped up again. Back was hurting. Left arm and jaw was hurting. So she went to ER. Described as an ache. Not related to activity. Pain comes and goes but not related to activity. Can't get comfortable at night. ER did ECG, chest Xray, gave her 1 dose of IV lopresor. Since then, 175/79 to 121/65 DM: Reports overall feeling well. Medication side effects: No. Home sugar checks: Yes. 135 last night, 165 in the morning Hypoglycemic spells: No. Watching diet: Yes. Unexpected weight loss: No. Polyuria, polydipsia: No. Vision Changes: No. Foot lesions or numbness or pain: No. PAST MEDICAL HISTORY: PAST MEDICAL HISTORY Diagnosis Date Degenerative disc disease, lumbar Diabetes (HCC) Fibromyalgia GERD (gastroesophageal reflux disease) Hypercholesterolemia Insomnia Lupus Osteoarthritis PAST SURGICAL HISTORY Procedure Laterality Date ADENOIDECTOMY PRIMARY Adenoidectomy APPENDECTOMY CHOLECYSTECTOMY Cholecystectomy COLONOSCOPY 12/24/10 TVA COLONOSCOPY 02/22/13 no polyps COLONOSCOPY FLX DX W/COLLJ SPEC WHEN PFRMD 04/30/2016 Colonoscopy COLONOSCOPY FLX DX W/COLLJ SPEC WHEN PFRMD 07/11/2019 repeat in 5 years ESOPHAGOGASTRODUODENOSC OPY TRANSORAL DIAGNOSTIC 04/30/2016 EGD ESOPHAGOGASTRODUODENOSC OPY TRANSORAL DIAGNOSTIC 07/11/2019 EGD LIG/TRNSXJ FLP TUBE ABDL/VAG APPR UNI/BI Tubal ligation PAST SURGICAL HISTORY OF colon polypectomy PAST SURGICAL HISTORY OF hernia repair TONSILLECTOMY PRIMARY/SECONDARY Tonsillectomy TOTAL ABDOMINAL HYSTERECT W/WO RMVL TUBE OVARY Hysterectomy, JESSICA supracervical ALLERGIES Chlorthalidone, Ciprofloxacin, Januvia [Sitagliptin], Jardiance [Empagliflozin], Macrodantin [Nitrofurantoin], Ozempic [Semaglutide], Pravastatin, Ultram [Tramadol Hcl], and Zanaflex [Tizanidine] MEDICATIONS Current Outpatient Medications Medication Sig glimepiride (AMARYL) 2 mg tablet Take 2 mg by mouth daily with breakfast. losartan (COZAAR) 100 mg tablet Take 1 tablet by mouth once daily. nefazodone (SERZONE) 200 mg tablet Take 1 tablet by mouth once daily. omeprazole (PRILOSEC) 40 mg capsule Take 1 capsule by mouth every morning. fenofibrate nanocrystallized (TRICOR) 48 mg tablet etodolac (LODINE) 400 mg tablet Take 1 tablet by mouth every 12 hours. PRN vitamin E mixed 400 unit cap Take by mouth. metFORMIN (GLUCOPHAGE) 1,000 mg tablet Take 1,000 mg by mouth twice daily. sucralfate (CARAFATE) 1 gram tablet Take 1 tablet by mouth before meals and at bedtime. prn (Patient taking differently: Take 1 g by mouth three times a day. prn) dapagliflozin (FARXIGA) 10 mg tablet Take 10 mg by mouth once daily. blood sugar diagnostic (BLOOD GLUCOSE TEST) test strip Test blood sugar(s) bid times daily. Dx: Type 2 DM - Controlled E11.9 Insulin: No Cholecalciferol, Vitamin D3, 25 mcg (1,000 unit) cap Take 1,000 Units by mouth once daily. baclofen (LIORESAL) 10 mg tablet hydrocortisone (ANUSOL-HC) 2.5 % rectal cream by RECTAL route two times a day. PRN Diclofenac Sodium (VOLTAREN) 1 % gel Apply 1 g to affected area twice daily. OMEGA-3 FATTY ACIDS/FISH OIL (OMEGA 3 FISH OIL ORAL) Take by mouth. MULTIVITAMIN TAB Take one(1) tablet daily. No current facility-administered medications for this visit. FAMILY HISTORY Problem Relation Age of Onset Heart Mother Diabetes Mother COPD Mother other (lupus) Mother other (rheumatoid) Mother Heart Sister [place] at age 41 Diabetes Sister Aneurysm Sister Abdominal other (aortic stenosis) Sister other (spesis) Sister Social History Tobacco Use Smoking status: Never Passive exposure: Current Smokeless tobacco: Never Vaping Use Vaping status: Never Used Substance Use Topics Alcohol use: No Drug use: No REVIEW OF SYSTEMS GENERAL: Trying to lose weight loss, + malaise, no fevers/chills HEENT: Negative for frequent or significant headaches, Poor hearing, no change in vision. NECK: Negative for lumps, goiter, pain and significant neck swelling RESPIRATORY: Negative for cough, hemoptysis, wheezing, dyspnea (more content not included)... Normal [facility] Comprehensive metabolic 2000 panelon 11-21-2024 Albumin [Mass/Vol] 4.4 g/dL Normal 3.9-4.9 [place] Comment on above: Order Comment: Speci men Type: BLOOD SPECIMEN Ordering Facility: [facility] Address: [address] [place] [address] Performed By: #### 2 4321-2, #### [facility] CLIA [id number] [address] [place] [address] [place] ALP [Catalytic activity/Vol] 59 U/L Normal 34-123 [facility] Comment on above: Order Comment: Speci men Type: BLOOD SPECIMEN Ordering Facility: [facility] Address: [address] [place] [address] Performed By: #### 2 4321-2, #### [facility] CLIA [id number] [address] [place] [id number] [place] ALT [Catalytic activity/Vol] 20 U/L Normal 7-38 [facility] Comment on above: Order Comment: Speci men Type: BLOOD SPECIMEN Ordering Facility: [facility] Address: [address] [place] [address] Performed By: #### 2 4321-2, #### [facility] CLIA [id number] [address] [place] [address] [place] Anion gap [Moles/Vol] 14 mmol/L Normal 8-15 [facility] Comment on above: Order Comment: Speci men Type: BLOOD SPECIMEN Ordering Facility: [facility] Address: [address] [place] [address] Performed By: #### 2 4321-2, #### [facility] CLIA [id number] [address] [place] [address] [place] AST [Catalytic activity/Vol] 23 U/L Normal 13-35 [facility] Comment on above: Order Comment: Speci men Type: BLOOD SPECIMEN Ordering Facility: [facility] Address: [address] [place] [address] Performed By: #### 2 432-2, #### [facility] CLIA [id number] [address] [place] [address] [place] Bilirubin [Mass/Vol] 0.3 mg/dL Normal 0.2-1.3 [facility] Comment on above: Order Comment: Speci men Type: BLOOD SPECIMEN Ordering Facility: [facility] Address: [address] [place], [place] [id number] Performed By: #### 2 4321-2, #### [facility] CLIA [id number] [address] [place], [place] [id number] [place] Calcium [Mass/Vol] 10.0 mg/dL Normal 8.5-10.2 [place] Comment on above: Order Comment: Speci men Type: BLOOD SPECIMEN Ordering Facility: [facility] Address: [address] [place], [place] [id number] Performed By: #### 2 4321-2, #### [facility] CLIA [id number] [address] [place] [address] [place] Chloride [Moles/Vol] 103 mmol/L Normal 98-107 [facility] Comment on above: Order Comment: Speci men Type: BLOOD SPECIMEN Ordering Facility: [facility] Address: [address] [place] [address] Performed By: #### 2 4321-2, #### [facility] CLIA [id number] [address] [place] [address] [place] CO2 [Moles/Vol] 20 mmol/L Low 22-30 [facility] Comment on above: Order Comment: Speci men Type: BLOOD SPECIMEN Ordering Facility: [facility] Address: [address] [place] [address] Performed By: #### 2 4321-2, #### [facility] CLIA [id number] [address] [place] [address] [place] Creatinine [Mass/Vol] 0.63 mg/dL Normal 0.58-0.96 [facility] Comment on above: Order Comment: Speci men Type: BLOOD SPECIMEN Ordering Facility: [facility] Address: [address] [place] [address] Performed By: #### 2 4321-2, #### [facility] CLIA [id number] [address] [place] [address] [place] Creatinine and Glomerular filtration rate.predicted panel (S/P/Bld) 96 mL/min/1.73m??? Normal >=60 [facility] Comment on above: Order Comment: Speci men Type: BLOOD SPECIMEN Ordering Facility: [facility] Address: [address] [place] [address] Result Comment: [place] mated Glomerular Filtration Rate (eGFR) is calculated using the 2020 CKD-EPI creatinine equation. This equation utilizes serum creatinine, sex, and age as parameters. The creatinine assay has traceable calibration to isotope dilution-mass spectrometry. Refer to KDIGO guidelines for clinical interpretation. In patients with unstable renal function, e.g. those with acute kidney injury, the eGFR may not accurately reflect actual GFR. Performed By: #### 2 4320-, #### [facility] CLIA [id number] [address] [place] [address] [place] Glucose [Mass/Vol] 207 mg/dL High 74-99 [place] Comment on above: Order Comment: Vanesa gonzalez Type: BLOOD SPECIMEN Ordering Facility: [facility] Address: [address] [place] [address] Result Comment: The [place] Diabetes [employer] (ADA) provides guidance for cutoff values for fasting glucose and random glucose. The ADA defines fasting as no caloric intake for at least 8 hours. Fasting plasma glucose results between 100 to 125 mg/dL indicate increased risk for diabetes (prediabetes). Fasting plasma glucose results greater than or equal to 126 mg/dL meet the criteria for diagnosis of diabetes. In the absence of unequivocal hyperglycemia, results should be confirmed by repeat testing. In a patient with classic symptoms of hyperglycemia or hyperglycemic crisis, random plasma glucose results greater than or equal to 200 mg/dL meet the criteria for diagnosis of diabetes. Reference: Standards of Medical Care in Diabetes 2016, [place] [employer]. Diabetes Care. 2016.39(Suppl 1). Performed By: #### 2 4320-11, #### [facility] CLIA [id number] [address] [place] [address] [place] Potassium [Moles/Vol] 4.1 mmol/L Normal 3.7-5.1 [facility] Comment on above: Order Comment: Vanesa gonzalez Type: BLOOD SPECIMEN Ordering Facility: [facility] Address: [address] [place] [address] Performed By: #### 2 4320-11, #### [facility] CLIA [id number] [address] [place] [address] [place] Protein [Mass/Vol] 7.5 g/dL Normal 6.3-8.0 [place] Comment on above: Order Comment: Speci men Type: BLOOD SPECIMEN Ordering Facility: [facility] Address: [address] [place] [address] Performed By: #### 2 4321-2, #### [facility] CLIA [id number] [address] [place] [address] [place] Sodium [Moles/Vol] 137 mmol/L Normal 136-144 [place] Comment on above: Order Comment: Speci men Type: BLOOD SPECIMEN Ordering Facility: [facility] Address: [address] [place] [address] Performed By: #### 2 432-2, #### [facility] CLIA [id number] [address] [place] [address] [place] Urea nitrogen [Mass/Vol] 18 mg/dL Normal 7-21 [facility] Comment on above: Order Comment: Speci men Type: BLOOD SPECIMEN Ordering Facility: [facility] Address: [address] [place] [address] Performed By: #### 2 432-2, #### [facility] CLIA [id number] [address] [place] [address] [place] LIPID PANEL, NONFASTINGon Cholesterol [Mass/Vol] 291 mg/dL High <200 [facility] Comment on above: Order Comment: Speci men Type: BLOOD SPECIMEN Ordering Facility: [facility] Address: [address] [place] [address] Result Comment: <200 mg/dL, Desirable 200-239 mg/dL, Borderline high >239 mg/dL, High Performed By: #### 2 4321-2, #### [facility] CLIA [id number] [address] [place] [address] [place] HDL CHOLESTEROL, NF 42 mg/dL Normal >[address] [facility] Comment on above: Order Comment: Vanesa gonzalez Type: BLOOD SPECIMEN Ordering Facility: [facility] Address: [address] [place] [address] Result Comment: 40-5 9 mg/dL, Acceptable >59 mg/dL, High: Negative risk factor for coronary heart disease <40 mg/dL, Low: Positive risk factor for coronary heart disease Performed By: #### 2 4321-2, #### [facility] CLIA [id number] [address] [place] [address] [place] LDL CHOLESTEROL, NF Normal [facility] Comment on above: Order Comment: Vanesa gonzalez Type: BLOOD SPECIMEN Ordering Facility: [facility] Address: [address] [place] [address] Result Comment: Unab le to calculate due to increased Triglycerides. A Direct LDL Cholesterol measurement will not be performed. If clinically indicated, a fasting Basic Lipid Panel (LIPB) may be ordered. Performed By: #### 2 1-2, #### [facility] CLIA [id number] [address] [place] [address] [place] LDL/HDL RATIO, NF Normal [facility] Comment on above: Order Comment: Vanesa lisa Type: BLOOD SPECIMEN Ordering Facility: [facility] Address: [address] [place] [address] Result Comment: Unab le to calculate due to elevated Triglycerides. Reference: 1. National Cholesterol Education Program ATP III Guideline At-A-Glance Quick Desk Reference: National Heart, Lung, and Blood Ernest. National Institutes of Health. 2001: NIH Publication No. 01-3305. 2. An International Atherosclerosis Society position paper: global recommendations for the management of dyslipidemia: executive summary, Atherosclerosis. 2014: 232(2):410-413. Performed By: #### 2 4321-2, #### [facility] CLIA [id number] [address] [place] [address] [place] NON HDL CHOL, NF 249 mg/dL High <130 [facility] Comment on above: Order Comment: Speci men Type: BLOOD SPECIMEN Ordering Facility: [facility] Address: [address] [place] [address] Result Comment: <130 mg/dL, Optimal 130-159 mg/dL, Near optimal/above optimal 160-189 mg/dL, Borderline high 190-219 mg/dL, High >219 mg/dL, Very high Secondary prevention optimal non HDL Cholesterol levels are recommended to be <100 mg/dL Performed By: #### 2 4321-2, #### [facility] CLIA [id number] [address] [place] [address] [place] T CHOL/HDL RATIO NF 6.93 mg/dL High <5.[address] [facility] Comment on above: Order Comment: Speci men Type: BLOOD SPECIMEN Ordering Facility: [facility] Address: [address] [place] [address] Performed By: #### 2 4321-2, #### [facility] CLIA [id number] [address] [place] [address] [place] TRIGLYCERIDES, NF 410 mg/dL High <150 [facility] Comment on above: Order Comment: Speci men Type: BLOOD SPECIMEN Ordering Facility: [facility] Address: [address] [place] [address] Result Comment: <150 mg/dL, Normal 150-199 mg/dL, Borderline high 200-499 mg/dL, High >499 mg/dL, Very high Performed By: #### 2 4321-2, #### [facility] CLIA [id number] [address] [place] [address] [place] VLDL CHOLESTEROL, NF Normal [facility] Comment on above: Order Comment: Speci men Type: BLOOD SPECIMEN Ordering Facility: [facility] Address: [address] [place] [address] Result Comment: Unab le to calculate due to elevated Triglycerides. Performed By: #### 2 4321-2, #### [facility] CLIA [id number] [address] [place] [address] [place] Magnesium SerPl-mCncon 11-21 Magnesium [Mass/Vol] 1.6 mg/dL Low 1.7-2.3 [facility] Comment on above: Order Comment: Speci men Type: BLOOD SPECIMEN Ordering Facility: [facility] Address: [address] [place] [address] Performed By: #### 2 4321-2, #### [facility] CLIA [id number] [address] [place] [address] [place] TSH SerPl-aCncon 11-21-2024 TSH Qn 2.070 m[IU]/L Normal 0.270-4.20 0 [facility] Comment on above: Order Comment: Speci men Type: BLOOD SPECIMEN Ordering Facility: [facility] Address: [address] [place] [address] Performed By: #### 2 4321-2, #### [facility] CLIA [id number] [address] [place] [address] [place] Vit B12 SerPl-mCncon 025 Cobalamin (Vitamin B12) [Mass/Vol] 649 pg/mL Normal 232-1245 [facility] Comment on above: Order Comment: Speci men Type: BLOOD SPECIMEN Ordering Facility: [facility] Address: [address] [place], [place] [id number] Performed By: #### 2 4321-2, #### [facility] CLIA [id number] [address] [place], [place] [id number] [place] 12 Lead EKGon 11-17-2024 12 Lead EKG [facility] Cardiovascular Services [address] [place] [address] 12 Lead EKG 11/17/24 1141 MR#: [id number] Acct: [id number] Name: VILMA DIAL I Rep #: [id number] : 1955 69 From: Dennis Ludwig MD Attending Dr: Status: DEP ER Ordering Dr: Fredi Courtney NP-C Date: 11/17/24 Location: ED Sex: F C Admitted: Test Reason : Blood Pressure : */* mmHG Vent. Rate : 91 BPM Atrial Rate : 91 BPM P-R Int : 154 ms QRS Dur : 114 ms QT Int : 388 ms P-R-T Axes : 54 -8 65 degrees QTcB Int : 477 ms Normal sinus rhythm Incomplete left bundle branch block Minimal voltage criteria for LVH, may be normal variant ( Bernard product ) Borderline ECG Confirmed by DENNIS LUDWIG MD ([id number]), technical editor ISAURA QUINONES ([id number]) on 11/21/2024 6:03:07 AM Referred By: Confirmed By: DENNIS LUDWIG MD 11/21/24 0603 Date Dennis Ludwig MD CC: RECOVERY SPECIALIST-C Fredi Courtney; Dr. Iglesia Wright MD; Dr. Ron Duenas MD Signed Normal [facility] Absolute neutrophil countOrd ered By: Fredi Courtney on 11-17-2024 Neutrophils (Bld) [#/Vol] 3.6 10*3/uL 2.0-7.7 [facility] Basic Metabolic Profile (BMP )on 11-17-2024 BUN/CRE 22.8 RATIO High 10-20 [facility] Comment on above: Order Comment: 'TROP ' Serial specimen #1, #2 or #3: 1 Performed By: #### L 500.2500, L100.0100, L501.4020 ####[facility] [address] [place], [address] CA,Total 9.7 mg/dL Normal 8.5-10.1 [facility] Comment on above: Order Comment: 'TROP ' Serial specimen #1, #2 or #3: 1 Performed By: #### L 500.2500, L100.0100, L501.4020 ####[facility] [address] [place], [address] Chloride [Moles/Vol] 102 mmol/L Normal 98-107 [facility] Comment on above: Order Comment: 'TROP ' Serial specimen #1, #2 or #3: 1 Performed By: #### L 500.2500, L100.0100, L501.4020 ####[facility] [address] [place], [address] CO2 [Moles/Vol] 28.0 mmol/L Normal 21.0-32.0 [facility] Comment on above: Order Comment: 'TROP ' Serial specimen #1, #2 or #3: 1 Performed By: #### L 500.2500, L100.0100, L501.4020 ####[facility] [address] [facility] [address] Creatinine [Mass/Vol] 0.88 mg/dL Normal 0.55-1.02 [facility] Comment on above: Order Comment: 'TROP ' Serial specimen #1, #2 or #3: 1 Result Comment: The validity of the calculated GFR GFRAA in patients over 70 years has not been determined. Clinical correlation is essential. Performed By: #### L 500.2500, L100.0100, L501.4020 ####[facility] [address] [place], [address] ECRCL 84.96 ml/min Normal [facility] Comment on above: Order Comment: 'TROP ' Serial specimen #1, #2 or #3: 1 Performed By: #### L 500.2500, L100.0100, L501.4020 ####[facility] [address] [place], [address] EST GFR - AA 82 mL/min Normal >60 [facility] Comment on above: Order Comment: 'TROP ' Serial specimen #1, #2 or #3: 1 Result Comment: Afri can Burkin[place] GFR Calc Performed By: #### L 500.2500, L100.0100, L501.4020 ####[facility] [address] [place], [address] GAP 8 Normal 5-15 [facility] Comment on above: Order Comment: 'TROP ' Serial specimen #1, #2 or #3: 1 Performed By: #### L 500.2500, L100.0100, L501.4020 ####[facility] [address] [place], [address] GFR/1.73 sq M.predicted among non-blacks MDRD (S/P/Bld) [Vol rate/Area] 68 mL/min/{1.73_m2} Normal >60 [facility] Comment on above: Order Comment: 'TROP ' Serial specimen #1, #2 or #3: 1 Result Comment: Non- GFR Calc Performed By: #### L 500.2500, L100.0100, L501.4020 ####[facility] [address] [place], [address] Glucose [Mass/Vol] 290 mg/dL High 74-106 [facility] Comment on above: Order Comment: 'TROP ' Serial specimen #1, #2 or #3: 1 Result Comment: Gluc ose result greater than or equal to 200 mg/dL suggests DIABETES MELLITUS per A.D.A. criteria. Performed By: #### L 500.2500, L100.0100, L501.4020 ####[facility] [address] [place], [address] Potassium [Moles/Vol] 3.2 mmol/L Low 3.5-5.1 [facility] Comment on above: Order Comment: 'TROP ' Serial specimen #1, #2 or #3: 1 Performed By: #### L 500.2500, L100.0100, L501.4020 ####[facility] [address] [place], [address] Sodium [Moles/Vol] 138 mmol/L Normal 136-145 [facility] Comment on above: Order Comment: 'TROP ' Serial specimen #1, #2 or #3: 1 Performed By: #### L 500.2500, L100.0100, L501.4020 ####[facility] [address] [place], [address] Urea nitrogen [Mass/Vol] 20 mg/dL High 05-05 [facility] Comment on above: Order Comment: 'TROP ' Serial specimen #1, #2 or #3: 1 Performed By: #### L 500.2500, L100.0100, L501.4020 ####[facility] [address] [place], [address] Basophil percentageOrdered B y: Fredi Courtney on 11-17-2024 Basophils/100 WBC (Bld) 0.7 % 0-1 [facility] Blood urea nitrogen (BUN)/cr eatinine ratioOrdered By: Freid Courtney on 11-17-2024 Urea nitrogen/Creatinine [Mass ratio] 22.8 mg/mg High 08-07 [facility] CBC W/Diff, Automatedon 10-21 Absolute Lymph 2.98 X10 3/uL Normal 0.83-4.51 [facility] Comment on above: Performed By: #### L 500.2500, L100.0100, L501.4020 ####[facility] [address] [place], [address] Absolute Neut 3.6 X10 3/uL Normal 2.0-7.7 [facility] Comment on above: Performed By: #### L 500.2500, L100.0100, L501.4020 ####[facility] [address] [place], [address] Basophils/100 WBC (Bld) 0.7 % Normal 0-1 [facility] Comment on above: Performed By: #### L 500.2500, L100.0100, L501.4020 ####[facility] [address] [place], [address] Eosinophils/100 WBC (Bld) 1.1 % Normal 0-5 [facility] Comment on above: Performed By: #### L 500.2500, L100.0100, L501.4020 ####[facility] [address] [place], [address] Erythrocyte distribution width (RBC) [Ratio] 13.9 % Normal 11.6-14.6 [facility] Comment on above: Performed By: #### L 500.2500, L100.0100, L501.4020 ####[facility] [address] [place], [address] Hematocrit (Bld) [Volume fraction] 47.8 % High 37-47 [facility] Comment on above: Performed By: #### L 500.2500, L100.0100, L501.4020 ####[facility] [address] [place], [address] Hemoglobin (Bld) [Mass/Vol] 15.6 g/dL High 12.0-15.0 [facility] Comment on above: Performed By: #### L 500.2500, L100.0100, L501.4020 ####[facility] [address] [place], [address] IG% 0.800 Normal 0.0-0.9 [facility] Comment on above: Result Comment: IG% - Immature Granulocytes (promyelocytes, myelocytes and metamyelocytes) > 1% indicates that a LEFT SHIFT is Present. Performed By: #### L 500.2500, L100.0100, L501.4020 ####[facility] [address] [place], [address] Lymphocytes/100 WBC (Bld) 41.4 % High 19-41 [facility] Comment on above: Performed By: #### L 500.2500, L100.0100, L501.4020 ####[facility] [address] [place], [address] MCH (RBC) [Entitic mass] 29.4 pg Normal 27.0-32.0 [facility] Comment on above: Performed By: #### L 500.2500, L100.0100, L501.4020 ####[facility] [address] [place], [address] MCHC (RBC) [Mass/Vol] 32.6 g/dL Normal 32-36 [facility] Comment on above: Performed By: #### L 500.2500, L100.0100, L501.4020 ####[facility] [address] [place], [address] MCV (RBC) [Entitic vol] 90.0 fL Normal 81-99 [facility] Comment on above: Performed By: #### L 500.2500, L100.0100, L501.4020 ####[facility] [address] [place], [address] Monocytes/100 WBC (Bld) 6.0 % Normal 0-10 [facility] Comment on above: Performed By: #### L 500.2500, L100.0100, L501.4020 ####[facility] [address] [place], [address] Neutrophils/100 WBC (Bld) 50.0 % Normal 47-70 [facility] Comment on above: Performed By: #### L 500.2500, L100.0100, L501.4020 ####[facility] [address] [place], [address] Nucleated RBC (Bld) [#/Vol] 0 10*3/uL Normal 0-5 [facility] Comment on above: Performed By: #### L 500.2500, L100.0100, L501.4020 ####[facility] [address] [place], [address] Platelet mean volume (Bld) [Entitic vol] 9.8 fL Normal 6.2-12.0 [facility] Comment on above: Performed By: #### L 500.2500, L100.0100, L501.4020 ####[facility] [address] [place], [address] Platelets (Bld) [#/Vol] 228 10*3/uL Normal 150-450 [facility] Comment on above: Performed By: #### L 500.2500, L100.0100, L501.4020 ####[facility] [address] [place], [address] RBC (Bld) [#/Vol] 5.31 10*6/uL Normal 4.2-5.4 [facility] Comment on above: Performed By: #### L 500.2500, L100.0100, L501.4020 ####[facility] [address] [place], [address] RDW SD 45.9 fl High 35.1-43.9 [facility] Comment on above: Performed By: #### L 500.2500, L100.0100, L501.4020 ####[facility] [address] [place], [address] WBC (Bld) [#/Vol] 7.2 10*3/uL Normal 4.4-11.0 [facility] Comment on above: Performed By: #### L 500.2500, L100.0100, L501.4020 ####[facility] [address] [place], [address] Carbon dioxide measurementOr dered By: Fredi Courtney on 11-17-2024 CO2 [Moles/Vol] 28.0 mmol/L 21.0-32.0 [facility] Chest 1 View (Portable)on Chest 1 View (Portable) [facility] Imaging Services [address] [place] [address] Chest 1 View (Portable) MR#: [id number] Acct: [id number] Name: VILMA DIAL I Rep #: [id number] : 1955 F 69 From: Chico Cortez PCP: Dr. Ron Duenas MD Status: REG ER Study: Chest 1 View (Portable) Date of Exam: 11/17/24 Exam# [id number] Ordering Dr: Fredi Courtney RECOVERY SPECIALIST-Melva PROCEDURE: CHEST 1 VIEW (PORTABLE) REASON FOR EXAM: Chest pain. TECHNIQUE: AP portable upright view of the chest. COMPARISON: None. FINDINGS: The heart size is normal. The lungs are clear. No pleural effusion or pneumothorax is noted. No acute osseous process is seen. RAD/Chest 1 View (Portable) IMPRESSION: No evidence of acute cardiopulmonary disease. Reading Location: [address] CC: HAILEY Courtney; Dr. Ron Duenas MD Table Tender Sludge: Signed Normal [facility] Chloride measurementOrdered By: Fredi Courtney on 11-17-2024 Chloride [Moles/Vol] 102 mmol/L 98-107 [facility] Emergency Department Summary on 11-17-2024 Emergency Department Summary [facility] Medical Records Department [address] [place] [address] Emergency Department Summary 11/17/24 MR#: [id number] Acct: [id number] Name: VILMA DIAL I Rep #: [id number] : 1955 69 From: Iglesia Wright MD PCP: Dr. Ron Duenas MD Status:DEP ER Location: ED HPI History of Present Illness Chief Complaint: Hypertension Narrative Narrative: Patient is a 69-year-old female with history of lupus, hypertension hyperlipidemia hypertriglyceridemia, diabetes who presents to the emergency department for elevated blood pressure, dizziness as well as left jaw and left shoulder pain. Patient does take losartan 100 mg. Patient states that she went to her PCPs office yesterday and she felt slightly dizzy and her blood pressure was elevated with 180systolic. Patient states this does happen secondary to her history of anxiety. She is also been having some nagging left jaw pain, left shoulder pain has been ongoing however it is relieved with Tylenol. She denies any injury. However she states with her lupus she does have some minor aches and pains consistently. Patient was mostly concerned because of these pains as well as hypertension. Here for evaluation. [facility] Medical History Morbid obesity with BMI of 50.0-59.9, adult Vertigo Wears glasses Post-menopausal Diabetes Fatty liver Superfic phlebitis-leg Easy bruising Restless legs Back pain Dietary restriction History of ulceration History of diverticulitis Hypertension Gastric reflux Non-smoker CPAP (continuous positive airway pressure) dependence Leg cramps History of pain when walking History of edema History of echocardiogram History of stress test Cardiology follow-up encounter Chest pain Essential hypertension COVID-19 (06/24/21) Diabetes Seasonal allergies Stomach ulcer GERD (gastroesophageal reflux disease) Fibromyalgia Polycystic ovary Pneumonia Pancreatitis Osteoarthritis Lupus IBS (irritable bowel syndrome) Arthritis Anxiety and depression Insomnia SLE (systemic lupus erythematosus) Home Medications ???Medication ???Instructions ???Recorded ???Last Taken ???Type baclofen 10 mg tablet 10 mg PO TID PRN Spasms 04/23/16 U nknown History cholecalciferol (vitamin D3) 50 2,000 unit PO DAILY 07/07/19 Unkno wn History mcg (2,000 unit) chewable tablet fish oil-dha-epa 1,200 mg-144 1 ea PO DAILY 07/07/19 Unknown His tory mg-216 mg capsule multivitamin with minerals 1 ea PO DAILY 07/07/19 Unknown His tory diclofenac sodium 1 % topical gel 2 gm topical BID PRN Pain 1 Unknown History etodolac 400 mg tablet 400 mg PO BID PRN Pain 04/25/22 Un known History Held on 05/07/22. Instructions: until ok with cardiology nefazodone 200 mg tablet 200 mg PO QHS ANXIETY 05/07/22 Unk nown History omeprazole 40 mg capsule,delayed 40 mg PO DAILY 12/10/22 Unknown Hi story release vitamin E (dl, acetate) 450 mg 450 mg PO DAILY 06/08/23 Unknown H istory (1,000 unit) capsule flash glucose scanning reader #1 ea 12/09/23 Unknown Rx (FreeStyle Lesley 2 Lamar) flash glucose sensor (FreeStyle #2 ea 12/09/23 Unknown Rx Lesley 2 Sensor kit) fenofibrate nanocrystallized 48 mg 48 mg PO QHS 100 days #100 tabs 04/05/24 Unknown Rx tablet (Tricor) losartan 100 mg tablet 100 mg PO QDAY 04/13/24 Unknown Hi story chlorthalidone 25 mg tablet 25 mg PO QDAY 08/10/24 Unknown His tory blood sugar diagnostic (OneTouch #180 ea 08/24/24 Unknown Rx Verio test strips) Farxiga 10 mg tablet 10 mg PO DAILY #90 tabs 11/16/24 U nknown Rx (dapagliflozin propanediol) glimepiride 2 mg tablet 3 mg (1.5 x 2 mg) PO DAILY #135 Unknown Rx tabs metformin 1,000 mg tablet 1,000 mg PO BID #180 tabs 11/16/24 Unknown Rx sucralfate 1 gram tablet 1 g PO QACHS PRN 11/16/24 Unknown History Allergy/AdvReac Type Severity Reaction Status Date / Time tizanidine (From Zanaflex) Allergy Intermediate heart Verified 11/16/24 08:37 racing nitrofurantoin Allergy Unknown Verified 11/16/24 08:37 macrocrystalline (From Macrodantin) tramadol HCl (From Ultram) Allergy Swelling Verified 11/16/24 08:37 sitagliptin (From Januvia) AdvReac Severe Nausea Verified 11/16/24 08:37 lisinopril AdvReac Intermediate muscle Verified 11/16/24 08:37 spasms semaglutide (From Ozempic) AdvReac Intermediate constipated Verified 11/16/24 08:37 ciprofloxacin (From Cipro) AdvReac RED URINE Verified 11/16/24 08:37 ciprofloxacin HCl (From AdvReac RED URINE Verified 11/16/24 08:37 Cipro) empagliflozin (From AdvReac stomach Verified 11/16/24 08:37 Jardiance) pain Family History Mother Arthritis Diabetes Heart disease (more content not included)... Normal [facility] Eosinophil percentageOrdered By: Fredi Courtney on 11-17-2024 Eosinophils/100 WBC (Bld) 1.1 % 0-5 [facility] Erythrocyte distribution wid th (RBC) [Ratio]Ordered By: Fredi Courtney on 11-17-2024 Erythrocyte distribution width (RBC) [Entitic vol] 45.9 fL High 35.1-43.9 [facility] Erythrocyte distribution wid th ratioOrdered By: Fredi Courtney on 11-17-2024 Erythrocyte distribution width (RBC) [Ratio] 13.9 % 11.6-14.6 [facility] Estimated glomerular filtrat ion rate (GFR) AmericanOrdered By: Fredi Courtney on 11-17-2024 Estimated GFR (MDRD) Amer 82 mL/min >60 [facility] Comment on above: GFR Calc Estimation of creatinine rodney aranceOrdered By: Fredi Courtney on 11-17-2024 Estimated Creatinine Clearance Calc 84.96 ml/min [facility] Glomerular filtration rate ( GFR) estimationOrdered By: Fredi Courtney on 11-17-2024 Estimated GFR (MDRD) Non-Af Amer 68 mL/min >60 [facility] Comment on above: Non- GFR Calc Glucose measurementOrdered B y: Fredi Courtney on 11-17-2024 Glucose [Mass/Vol] 290 mg/dL High 74-106 [facility] Comment on above: Glucose result great er than or equal to 200 mg/dLsuggests DIABETES MELLITUS per A.D.A. criteria. Hematocrit Auto (Bld) [Volum e fraction]Ordered By: Fredi Courtney on 11-17-2024 Hematocrit (Bld) [Volume fraction] 47.8 % High 37-47 [facility] Hemoglobin measurementOrdere d By: Fredi Courtney on 11-17-2024 Hemoglobin (Bld) [Mass/Vol] 15.6 g/dL High 12.0-15.0 [facility] Immature granulocytes/100 WB C Auto (Bld)Ordered By: Fredi Courtney on 11-17-2024 Immature granulocytes/100 WBC (Bld) 0.800 % 0.0-0.9 [facility] Comment on above: IG% - Immature Granu locytes (promyelocytes, myelocytes and metamyelocytes) > 1% indicates that a LEFT SHIFT is Present. L501.4020on 11-17-2024 TROPONIN-I HS 12 pg/mL Normal 3.0-54.0 [facility] Comment on above: Order Comment: 'TROP ' Serial specimen #1, #2 or #3: 1 Result Comment: Plea se Note: New Test Units and Gender Specific Reference Ranges. For more information see Policy Stat Procedure [place] High Sensitivity Troponin (TNIH) and attachments. Performed By: #### L 500.2500, L100.0100, L501.4020 ####[facility] [address] [place], [address] Lymphocytes Auto (Unsp spec) [#/Vol]Ordered By: Fredi Courtney on 11-17-2024 Lymphocytes (Bld) [#/Vol] 2.98 10*3/uL 0.83-4.51 [facility] Lymphocytes/100 WBC Auto (Un sp spec)Ordered By: Fredi Courtney on 11-17-2024 Lymphocytes/100 WBC (Bld) 41.4 % High 19-41 [facility] MCV (mean corpuscular volume ) determinationOrdered By: Fredi Courtney on 11-17-2024 MCV (RBC) [Entitic vol] 90.0 fL 81-99 [facility] Mean corpuscular hemoglobin (MCH) determinationOrdered By: Fredi Courtney on 11-17-2024 MCH (RBC) [Entitic mass] 29.4 pg 27.0-32.0 [facility] Mean corpuscular hemoglobin concentration (MCHC) determinationOrdered By: Fredi Courtney on 11-17-2024 MCHC (RBC) [Mass/Vol] 32.6 g/dL 32-36 [facility] Mean platelet volume determi nationOrdered By: Fredi Courtney on 11-17-2024 Platelet mean volume (Bld) [Entitic vol] 9.8 fL 6.2-12.0 [facility] Monocyte percentageOrdered B y: Fredi Courtney on 11-17-2024 Monocytes/100 WBC (Bld) 6.0 % 0-10 [facility] Neutrophil percentageOrdered By: Fredi Courtney on 11-17-2024 Neutrophils/100 WBC (Bld) 50.0 % 47-70 [facility] Nucleated red blood cell per centageOrdered By: Fredi Courtney on 11-17-2024 Nucleated RBC/100 WBC (Bld) [Ratio] 0 % 0-5 [facility] Platelet countOrdered By: Paola Courtney on 11-17-2024 Platelets (Bld) [#/Vol] 228 10*3/uL 150-450 [facility] Potassium measurementOrdered By: Fredi Courtney on 11-17-2024 Potassium [Moles/Vol] 3.2 mmol/L Low 3.5-5.1 [facility] [facility] RBC Auto (Bld) [#/Vol]Ordere d By: Fredi Courtney on 11-17-2024 RBC (Bld) [#/Vol] 5.31 10*6/uL 4.2-5.4 [facility] Serum anion gap measurementO rdered By: Fredi Courtney on 11-17-2024 Anion gap [Moles/Vol] 8 mmol/L 5-15 [facility] Serum or plasma calcium enoch urement (mass/volume)Ordered By: Fredi Courtney on 11-17-2024 Calcium [Mass/Vol] 9.7 mg/dL 8.5-10.1 [facility] Serum or plasma creatinine m easurement (mass/volume)Ordered By: Fredi Courtney on 11-17-2024 Creatinine [Mass/Vol] 0.88 mg/dL 0.55-1.02 [facility] Comment on above: The validity of the calculated GFR & GFRAA in patients over 70 years has not been determined. Clinical correlation is essential. Serum or plasma urea nitroge n measurement (mass/volume)Ordered By: Fredi Courtney on 11-17-2024 Urea nitrogen [Mass/Vol] 20 mg/dL High 7-18 [facility] Sodium levelOrdered By: Fredi Courtney on 11-17-2024 Sodium [Moles/Vol] 138 mmol/L 136-145 [facility] Troponin IOrdered By: Fredi will on 11-17-2024 Troponin I High Sensitivity 12 pg/mL 3.0-54.0 [facility] Comment on above: Please Note: New Carmela t Units and Gender Specific Reference Ranges. For more information see Policy Stat Procedure [place] High Sensitivity Troponin (TNIH) and attachments. White blood cell (WBC) count Ordered By: Fredi Courtney on 11-17-2024 WBC (Bld) [#/Vol] 7.2 10*3/uL 4.4-11.0 [facility] Endocrinology Visit Reporton 11-16-2024 Endocrinology Visit Report [facility] 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 Accompanied by: Is patient in pain?: No Allergies tizanidine (From Zanaflex) Allergy (Intermediate, Verified 11/16/24 08:37) heart racing nitrofurantoin macrocrystalline (From Macrodantin) Allergy (Verified 11/16/24 08:37) Unknown tramadol HCl (From Ultram) Allergy (Verified 11/16/24 08:37) Swelling sitagliptin (From Januvia) Adverse Reaction (Severe, Verified 11/16/24 08:37) Nausea lisinopril Adverse Reaction (Intermediate, Verified 11/16/24 08:37) muscle spasms semaglutide (From Ozempic) Adverse Reaction (Intermediate, Verified 11/16/24 08:37) constipated ciprofloxacin (From Cipro) Adverse Reaction (Verified 11/16/24 08:37) RED URINE ciprofloxacin HCl (From Cipro) Adverse Reaction (Verified 11/16/24 08:37) RED URINE empagliflozin (From Jardiance) Adverse Reaction (Verified 11/16/24 08:37) stomach pain Medications ???Medication ???Instructions ???Recorded ???Confirmed ???Type baclofen 10 mg tablet 10 mg PO TID PRN Spasms 04/23/16 0 11/16/24 History cholecalciferol (vitamin D3) 50 2,000 unit PO DAILY 07/07/1911/16 History mcg (2,000 unit) chewable tablet fish oil-dha-epa 1,200 mg-144 1 ea PO DAILY 07/07/19 11/16/24 Hi story mg-216 mg capsule multivitamin with minerals 1 ea PO DAILY 07/07/19 11/16/24 Hi story diclofenac sodium 1 % topical gel 2 gm topical BID PRN Pain 11/16/24 History etodolac 400 mg tablet 400 mg PO BID PRN Pain 04/25/22 History Held on 05/07/22. Instructions: until ok with cardiology nefazodone 200 mg tablet 200 mg PO QHS ANXIETY 05/07/22 History omeprazole 40 mg capsule,delayed 40 mg PO DAILY 12/10/22 11/16/24 H istory release vitamin E (dl, acetate) 450 mg 450 mg PO DAILY 06/08/23 11/16/24 History (1,000 unit) capsule flash glucose scanning reader #1 ea 12/09/23 11/16/24 Rx (FreeStyle Lesley 2 Lamar) flash glucose sensor (FreeStyle #2 ea 12/09/23 11/16/24 Rx Lesley 2 Sensor kit) fenofibrate nanocrystallized 48 mg 48 mg PO QHS 100 days #100 tabs 04/05/24 11/16/24 Rx tablet (Tricor) losartan 100 mg tablet 100 mg PO QDAY 04/13/24 11/16/24 H istory chlorthalidone 25 mg tablet 25 mg PO QDAY 08/10/24 11/16/24 Hi story blood sugar diagnostic (OneTouch #180 ea 08/24/24 11/16/24 Rx Verio test strips) Farxiga 10 mg tablet 10 mg PO DAILY #90 tabs 11/16/24 0 11/16/24 Rx (dapagliflozin propanediol) glimepiride 2 mg tablet 3 mg (1.5 x 2 mg) PO DAILY #135 11/16/24 Rx tabs metformin 1,000 mg tablet 1,000 mg PO BID #180 tabs 11/16/24 11/16/24 Rx sucralfate 1 gram tablet 1 g PO QACHS PRN 11/16/24 11/16/24 History Have you fallen in the past year?: No PFSH Medical History Morbid obesity with BMI of 50.0-59.9, adult Vertigo Wears glasses Post-menopausal Diabetes Fatty liver Superfic phlebitis-leg Easy bruising Restless legs Back pain Dietary restriction History of ulceration History of diverticulitis Hypertension Gastric reflux Non-smoker CPAP (continuous positive airway pressure) dependence Leg cramps History of pain when walking History of edema History of echocardiogram History of stress test Cardiology follow-up encounter Chest pain Essential hypertension COVID-19 (06/24/21) Diabetes Seasonal allergies Stomach ulcer GERD (gastroesophageal reflux disease) Fibromyalgia Polycystic ovary Pneumonia Pancreatitis Osteoarthritis Lupus IBS (irritable bowel syndrome) Arthritis Anxiety and depression Insomnia SLE (systemic lupus erythematosus) Surgical History History of cardiac catheterization Hx of colonoscopy H/O breast biopsy H/O hernia repair H/O: hysterectomy Hx of cholecystectomy Hx of appendectomy Hx of tonsillectomy Family History Mother Arthritis Diabetes Heart disease Hypertension High cholesterol Thyroid disorder Lupus Father Liver disease Other Alcohol abuse Anemia Anxiety A (more content not included)... Normal [facility] - Hematology and Cell countson 11-16-2024 HbA1c (Bld) [Mass fraction] 7.6 % High 4.2-6.3 [facility] CNCOon 09-29-2024 CNCO Letter Text Normal [facility] CNPEmilee 09-29-2024 CNPN Telephone (PODIWS) YOJANAVILMA I ([id number]) 1955 F Date Time Provider Department 09/29/24 DARREL CONTRERAS During your visit today, we recorded the following information about you: Lissett Ruvalcaba MA 09/29/2024 3:22 PM Signed Pt calling to get new order for diabetic shoes. The order from February is no longer valid. She had taken the order to [facility] and after several months wait, she was told that they could not provide the type of shoes she needed and that she would need to go to [facility]. Please fax new updated order to [facility]. No need to call pt unless there is a problem with the request. EDWIN Portillo Amanda, RN 09/29/2024 5:14 PM Signed Patient will need new appointment as they require order and office visit within 6 months. Kelly Spear LPN 09/30/2024 9:09 AM Signed Patient is scheduled on 10/28/2024 at 340. Kelly Spear LPN Allergies As of Date: 09/29/2024 Noted Allergy Reaction CHLORTHALIDONE 08/15/2024 16 - Unknown Comments: Cramps and low magnesium CIPROFLOXACIN 10/26/2014 14 - Other: See Comments Comments: Change in urine color JANUVIA (SITAGLIPTIN) 02/22/2018 8 - GI Upset JARDIANCE (EMPAGLIFLOZIN) 05/04/2019 5 - Intolerance MACRODANTIN (NITROFURANTOIN) 11/20/2005 OZEMPIC (SEMAGLUTIDE) 09/17/2021 16 - Unknown PRAVASTATIN 08/25/2022 17 - Myalgia ULTRAM (TRAMADOL HCL) 01/07/2013 7 - Swelling ZANAFLEX (TIZANIDINE) 09/17/2021 16 - Unknown Comments: Heart racing Date Reviewed: 07/29/2024 Reviewed by: Shelia Parrish MA - Fully Assessed Reason for Visit: Orders [681] Prescriptions as of 09/30/2024 - glimepiride (AMARYL) 2 mg tablet Take 2 mg by mouth daily with breakfast. - losartan (COZAAR) 100 mg tablet Take 1 tablet by mouth once daily. - nefazodone (SERZONE) 200 mg tablet Take 1 tablet by mouth once daily. - omeprazole (PRILOSEC) 40 mg capsule Take 1 capsule by mouth every morning. - fenofibrate nanocrystallized (TRICOR) 48 mg tablet - etodolac (LODINE) 400 mg tablet Take 1 tablet by mouth every 12 hours. PRN - vitamin E mixed 400 unit cap Take by mouth. - metFORMIN (GLUCOPHAGE) 1,000 mg tablet Take 1,000 mg by mouth twice daily. - sucralfate (CARAFATE) 1 gram tablet Take 1 tablet by mouth before meals and at bedtime. prn - dapagliflozin (FARXIGA) 10 mg tablet Take 10 mg by mouth once daily. - blood sugar diagnostic (BLOOD GLUCOSE TEST) test strip Test blood sugar(s) bid times daily. Dx: Type 2 DM - Controlled E11.9 Insulin: No - Cholecalciferol, Vitamin D3, 25 mcg (1,000 unit) cap Take 1,000 Units by mouth once daily. - baclofen (LIORESAL) 10 mg tablet - hydrocortisone (ANUSOL-HC) 2.5 % rectal cream by RECTAL route two times a day. PRN - Diclofenac Sodium (VOLTAREN) 1 % gel Apply 1 g to affected area twice daily. - OMEGA-3 FATTY ACIDS/FISH OIL (OMEGA 3 FISH OIL ORAL) Take by mouth. - MULTIVITAMIN TAB Take one(1) tablet daily. Problem List As Of Date 09/29/2024 Noted Resolved Diffuse myofascial pain syndrome [M79.18] 01/09/2016 Pain of both hip joints [M25.551, M25.552] 01/09/2016 DDD (degenerative disc disease), thoracic [M51.*01/09/2016 Type 2 diabetes mellitus with diabetic polyneur*04/21/2016 Morbid obesity with BMI of 50.0-59.9, adult (HC*06/18/2021 Primary hypertension [I10] 09/17/2021 Mixed hyperlipidemia [E78.2] 09/17/2021 TERI (obstructive sleep apnea) [G47.33] 09/17/2021 Systemic lupus erythematosus (HCC) [M32.9] 09/17/2021 History of colonic polyps [Z86.0100] 09/17/2021 Polyneuropathy [G62.9] 03/10/2022 Flow murmur [R01.1] 03/12/2022 Fatty liver [K76.0] 11/19/2022 11/20/2023 Hypomagnesemia [E83.42] 11/20/2022 Portal hypertensive gastropathy (HCC) [K76.6, K*05/19/2023 Mild episode of recurrent major depressive diso*05/19/2023 Vitamin D deficiency [E55.9] 05/28/2017 Diagnosed: 08/17/2023 Uncontrolled type 2 diabetes mellitus with hype*08/02/2020 Diagnosed: 08/17/2023 Irritable bowel syndrome [K58.9] 11/07/2022 Diagnosed: 08/17/2023 Abnormal cardiovascular stress test [R94.39] 11/20/2023 Diagnosed: 11/20/2023 Chest pain [R07.9] 11/20/2023 11/20/2023 Diagnosed: 11/20/2023 Class 3 severe obesity due to excess calories w*08/18/2023 11/20/2023 Diagnosed: 11/20/2023 Diverticular disease [K57.90] 11/20/2023 Diagnosed: 11/20/2023 Fibromyalgia [M79.7] 08/18/2023 Diagnosed: 11/20/2023 Left lower quadrant abdominal pain [R10.32] 11/07/2022 11/20/2023 Diagnosed: 11/20/2023 Nonalcoholic steatohepatitis (KOTHARI) [K75.81] 11/20/2023 Diagnosed: 11/20/2023 Primary insomnia [F51.01] 08/18/2023 Diagnosed: 11/20/2023 Primary osteoarthritis of both knees [M17.0] 08/18/2023 Diagnosed: 11/20/2023 Rectal hemorrhage [K62.5] 11/20/2023 11/20/2023 Diagnosed: 11/20/2023 Encounter Status:Closed by KELLY SPEAR on 09/30/24 Normal [facility] CNOVon 09-22-2024 CNOV Office Visit (OBGYWM ) VILMA DIAL I ([id number]) 1955 F Date Time Provider Department 09/22/24 11:30 AM AGNIESZKA MELCHOR OBGYWM During your visit today, we recorded the following information about you: Blood pressure Weight Height 128/76 140.2 kg 1.614 m Agnieszka Melchor APRN.APPEALS BOARD REFEREE 09/22/2024 11:55 AM Signed 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 Vilma is a 68 year old who presents for an annual gynecologic exam without complaints. Postmenopausal: Yes, no PMB since Supracervical hysterectomy BSO. HRT use: No. 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 LMP: 11/09/2005, Hysterectomy Age at Menarche: Age at First : Age at Menopause: [employer] An[employer] History Comments: Sexual Activity: Yes; Male; pt has had JESSICA Contraception: Surgical PAST MEDICAL HISTORY Diagnosis Date Degenerative disc disease, lumbar Diabetes (HCC) Fibromyalgia GERD (gastroesophageal reflux disease) Hypercholesterolemia Insomnia Lupus Osteoarthritis PAST SURGICAL HISTORY Procedure Laterality Date ADENOIDECTOMY PRIMARY Adenoidectomy APPENDECTOMY CHOLECYSTECTOMY Cholecystectomy COLONOSCOPY 12/24/10 TVA COLONOSCOPY 02/22/13 no polyps COLONOSCOPY FLX DX W/COLLJ SPEC WHEN PFRMD 04/30/2016 Colonoscopy COLONOSCOPY FLX DX W/COLLJ SPEC WHEN PFRMD 07/11/2019 repeat in 5 years ESOPHAGOGASTRODUODENOSC OPY TRANSORAL DIAGNOSTIC 04/30/2016 EGD ESOPHAGOGASTRODUODENOSC OPY TRANSORAL DIAGNOSTIC 07/11/2019 EGD LIG/TRNSXJ FLP TUBE ABDL/VAG APPR UNI/BI Tubal ligation PAST SURGICAL HISTORY OF colon polypectomy PAST SURGICAL HISTORY OF hernia repair TONSILLECTOMY PRIMARY/SECONDARY Tonsillectomy TOTAL ABDOMINAL HYSTERECT W/WO RMVL TUBE OVARY Hysterectomy, JESSICA supracervical FAMILY HISTORY Problem Relation Age of Onset Heart Mother Diabetes Mother COPD Mother other (lupus) Mother other (rheumatoid) Mother Heart Sister SD at age 41 Diabetes Sister Aneurysm Sister Abdominal other (aortic stenosis) Sister other (spesis) Sister SOCIAL HISTORY Social History Tobacco Use Smoking status: Never Passive exposure: Current Smokeless tobacco: Never Vaping Use Vaping status: Never Used Substance Use Topics Alcohol use: No Drug use: No REVIEW OF SYSTEMS Abdomen: No abdominal pain, nausea, vomiting, diarrhea, or constipation. No bloating, early satiety, indigestion, or increased flatulence. Bladder: No dysuria, gross hematuria, urinary frequency, urinary urgency, or incontinence Breast: No breast lumps, nipple d/c, overlying skin changes, redness or skin retraction Allergies and current medication updated:Yes SENSITIVE EXAM: The sensitive examination was discussed with the Patient or Patient's Authorized Cisco Unified Communications Engineer. As applicable, any other physician, advance practice provider, medical student, or other health professional student that will be observing or involved in the sensitive examination for educational or training purposes was discussed with the Patient or Authorized [employer] Unified Communications Engineer. The Patient or Authorized Cisco Unified Communications Engineer has agreed to proceed with the sensitive examination. (Sensitive examination includes inspection and/or palpation of the breasts, pelvis, prostate and anorectal regions). EXAM: BP 128/76 Ht 5' 3.543 (1.61m) Wt 309 lb (140.2kg) LMP 11/09/2005 BMI 53.80 kg/(m2). GENERAL: pleasant, female in no apparent distress HEENT: Normocephalic, atraumatic, mucus membranes moist, and no lesions DERMATOLOGY: Normal, without lesions, non-icteric, and non-hirsute BREAST: soft, non-tender, symmetric, no dominant mass, normal nipple-areolar complex, no lymphadenopathy, and no nipple discharge CHEST: Normal inspiratory effort ABDOMEN: soft, non-tender, and no masses PELVIC: external genitalia normal, normal Bartholin's glands, urethra, Mcgaffey's glands, no vulvar lesions, no cervical lesions, physiologic discharge present, normal appearing perineal body and perianal region---supracervical BIMANUAL: no adnexal masses, non-tender, and uterus surgically absent RECTOVAGINAL: deferred. NEURO: alert and oriented x3,exam grossly non-focal EXTREMITIES: normal ASSESSMENT/PLAN: 1) Health maintenance: Pap done with HPV. Mammogram ordered Mammogram up to date Nutrition, exercise and routine health maintenance exams reviewed. Calcium/Vitamin D supplementation information provided. Colon cancer screening: up to date with screening due 2024 BMD: up to date 2) Follow up one year or sooner as needed Agnieszka Melchor APRN.APPEALS BOARD REFEREE Referring Provider: AGNIESZKA MELCHOR [[id number]] Allergies As of Date: 09/22/ (more content not included)... Normal [facility] DBT Breast - bilateral scree arturogon 09-22-2024 IMPRESSION: There are no suspicious mammographic findings in either breast. Routine screening mammogram is recommended. Annual mammogram will be due in 1 year. BI-RADS Category 1: Negative RISK: Based on the Tyrer-Cuzick (TC) risk assessment model, this patient has a 5.1% lifetime risk of developing breast cancer, meaning they are at average risk for developing breast cancer. However, this is only an estimate based on available history provided on the patient's questionnaire. We encourage all patients to talk with their providers about these results, further recommendations for managing breast health, and appropriate supplemental screening options if the patient has dense breast tissue. Interpreting Radiologist: Nhi Bashir M.D. Electronically signed on: 09/22/2024 Table Tender Sludge: HENRIQUE Pandeyrileif Date/Time: Sep 22 2024 10:52A Dictated by: NHI BASHIR MD This examination was interpreted and the report reviewed and electronically signed by: NHI BASHIR MD on Sep 22 2024 12:44PM [facility] DIVISION OF RADIOLOGY * * *Final Report* * * DATE OF EXAM: Sep 22 2024 11:10AM [facility] [id number] - [facility] SCREENING W DAVID / PROCEDURE REASON: Encounter for screening mammogram for malignant neoplasm of breast * * * * Physician Interpretation * * * * RESULT: [address] [place] [address] [place] [address] #[id number] - [facility] SCREENING W DAVID HISTORY: Patient is 68 years old and is seen for screening and is asymptomatic in both breasts. Patient states no personal history of breast cancer. Patient states no personal history of other cancers. COMPARISON STUDIES: The present examination has been compared to prior imaging studies dated 08/12/2021 (mammogram), 08/14/2022 (mammogram) and 08/17/2023 (mammogram). MAMMOGRAM TECHNIQUE: The study was acquired using full field digital technology and interpreted from soft copy. Digital Breast Tomosynthesis (DBT) images were obtained and used to assist in the interpretation of this examination. Computer-aided detection was utilized by the radiologist in the interpretation of this examination. MAMMOGRAM FINDINGS: There are scattered areas of fibroglandular density. No suspicious masses, calcifications or other abnormalities are seen in either breast. There are no significant changes from the prior study. DIVISION OF RADIOLOGY Provider, [facility] - 09/22/2024 * * *Final Report* * * DATE OF EXAM: Sep 22 2024 11:10AM [facility] 0582 - [facility] SCREENING W DAVID / PROCEDURE REASON: Encounter for screening mammogram for malignant neoplasm of breast * * * * Physician Interpretation * * * * RESULT: [place] [address] #[id number] - [facility] SCREENING W DAVID HISTORY: Patient is 68 years old and is seen for screening and is asymptomatic in both breasts. Patient states no personal history of breast cancer. Patient states no personal history of other cancers. COMPARISON STUDIES: The present examination has been compared to prior imaging studies dated 08/12/2021 (mammogram), 08/14/2022 (mammogram) and 08/17/2023 (mammogram). MAMMOGRAM TECHNIQUE: The study was acquired using full field digital technology and interpreted from soft copy. Digital Breast Tomosynthesis (DBT) images were obtained and used to assist in the interpretation of this examination. Computer-aided detection was utilized by the radiologist in the interpretation of this examination. MAMMOGRAM FINDINGS: There are scattered areas of fibroglandular density. No suspicious masses, calcifications or other abnormalities are seen in either breast. There are no significant changes from the prior study. IMPRESSION IMPRESSION: There are no suspicious mammographic findings in either breast. Routine screening mammogram is recommended. Annual mammogram will be due in 1 year. BI-RADS Category 1: Negative RISK: Based on the Tyrer-Cuzick (TC) risk assessment model, this patient has a 5.1% lifetime risk of developing breast cancer, meaning they are at average risk for developing breast cancer. However, this is only an estimate based on available history provided on the patient's questionnaire. We encourage all patients to talk with their providers about these results, further recommendations for managing breast health, and appropriate supplemental screening options if the patient has dense breast tissue. Interpreting Radiologist: Nhi Bashir M.D. Electronically signed on: 09/22/2024 Table Tender Sludge: HENRIQUE Transcribe Date/Time: Sep 22 2024 10:52A Dictated by: NHI BASHIR MD This examination was interpreted and the report reviewed and electronically signed by: NHI BASHIR MD on Sep 22 2024 12:44PM EST [facility] Rad[facility]ative[facility] Breast - bilateral scree ningOrdered By: [facility] Provider on 09-22-2024 [facility] HIGH RISK HUMAN PAPILLOMA HAKAN (HPV), PCR FOR DETECTION AND GENOTYPINGon 09-22-2024 HPV 16 Ag Ql (Unsp spec) Not detected Normal Not detected [facility] Comment on above: Order Comment: Speci men Type: BLOOD SPECIMEN Ordering Facility: [facility] Address: [address] [place] [address] Performed By: #### 2 [id number] #### [facility] CLIA [id number] [address] [place] [address] [place] HPV 18 Ag Ql (Unsp spec) Not detected Normal Not detected [facility] Comment on above: Order Comment: Speci men Type: BLOOD SPECIMEN Ordering Facility: [facility] Address: [address] [place] [address] Performed By: #### 2 [id number] #### [facility] CLIA [id number] [address] [place] [id number] [place] HPV 31+33+35+39+45+51+52+56 +58+59+66+68 DNA REBECCA+probe Ql (Cvx) Not detected Normal Not detected [facility] Comment on above: Order Comment: Speci men Type: BLOOD SPECIMEN Ordering Facility: [facility] Address: [address] [place] [address] Result Comment: High Risk HPV Other Type includes HPV types 31, 33, 35, 39, 45, 51, 52, 56, 58, 59, 66 and 68. Performed By: #### 2 [id number], 84566-6 #### [facility] CLIA [id number] [address] [place] [address] [place] [facility] SCREENING W TOMOon 09-22 [facility] SCREENING W DAVID * * *Final Report* * * DATE OF EXAM: Sep 22 2024 11:10AM [facility] 0582 - [facility] SCREENING W DAVID / PROCEDURE REASON: Encounter for screening mammogram for malignant neoplasm of breast * * * * Physician Interpretation * * * * RESULT: [address] [address] [place] [address] #[id number] - [facility] SCREENING W DAVID HISTORY: Patient is 68 years old and is seen for screening and is asymptomatic in both breasts. Patient states no personal history of breast cancer. Patient states no personal history of other cancers. COMPARISON STUDIES: The present examination has been compared to prior imaging studies dated 08/12/2021 (mammogram), 08/14/2022 (mammogram) and 08/17/2023 (mammogram). MAMMOGRAM TECHNIQUE: The study was acquired using full field digital technology and interpreted from soft copy. Digital Breast Tomosynthesis (DBT) images were obtained and used to assist in the interpretation of this examination. Computer-aided detection was utilized by the radiologist in the interpretation of this examination. MAMMOGRAM FINDINGS: There are scattered areas of fibroglandular density. No suspicious masses, calcifications or other abnormalities are seen in either breast. There are no significant changes from the prior study. IMPRESSION: There are no suspicious mammographic findings in either breast. Routine screening mammogram is recommended. Annual mammogram will be due in 1 year. BI-RADS Category 1: Negative RISK: Based on the Tyrer-Cuzick (TC) risk assessment model, this patient has a 5.1% lifetime risk of developing breast cancer, meaning they are at average risk for developing breast cancer. However, this is only an estimate based on available history provided on the patient's questionnaire. We encourage all patients to talk with their providers about these results, further recommendations for managing breast health, and appropriate supplemental screening options if the patient has dense breast tissue. Interpreting Radiologist: Nhi Bashir M.D. Electronically signed on: 09/22/2024 Table Tender Sludge: HENRIQUE Transcribe Date/Time: Sep 22 2024 10:52A Dictated by: NHI BASHIR MD This examination was interpreted and the report reviewed and electronically signed by: NHI BASHIR MD on Sep 22 2024 12:44PM EST [id number] Normal [facility] PAP TESTon 09-22-2024 ADEQUACY Satisfactory for interpretation. Normal [facility] Comment on above: Order Comment: Speci men Type: URINE SPECIMEN Ordering Facility: [facility] Address: [address] [place] [address] Performed By: #### U ACR #### [facility] CLIA [id number] [address] [place] [address] [place] CASE REPORT Normal [facility] Comment on above: Order Comment: Speci men Type: URINE SPECIMEN Ordering Facility: [facility] Address: [address] [place] [address] Result Comment: Gyne cologic Cytology Report Case: [id number] Authorizing Provider: Agnieszka Melchor APRN.APPEALS BOARD REFEREE Collected: 09/22/2024 11:58 AM Ordering Location: OB/Gynecology Received: 09/22/2024 04:43 PM First Screen: Mariaa, Juli, CT, ASCP Specimen: Pap Test, ThinPrep, Cervix Performed By: #### U ACR #### [facility] CLIA [id number] [address] [place] [address] [place] CLINICAL HISTORY, CYTOLOGY, ASSISTANT PRESS OPERATOR OFFSET Routine Exam Normal [facility] Comment on above: Order Comment: Speci men Type: URINE SPECIMEN Ordering Facility: [facility] Address: [address] [place] [address] Result Comment: Post Menopausal Performed By: #### U ACR #### [facility] CLIA [id number] [address] [place] [address] [place] FINAL PERFORMING LAB Normal [facility] Comment on above: Order Comment: Speci men Type: URINE SPECIMEN Ordering Facility: [facility] Address: [address] [place] [address] Result Comment: Tech nical component, molding room supervisor screening performed at [facility], [address] [place] [address] CLIA# [id number] Diagnostic interpretation performed at [facility], [address] [place] [address] CLIA# [id number] Circulation Representative: Chaparro Rhodes M.D. Performed By: #### U ACR #### [facility] CLIA [id number] [address] [place] [address] [place] INTERPRETATION, CYTOLOGY, ASSISTANT PRESS OPERATOR OFFSET Normal [facility] Comment on above: Order Comment: Speci men Type: URINE SPECIMEN Ordering Facility: [facility] Address: [address] [place] [address] Result Comment: Nega tive for intraepithelial lesion or malignancy. Performed By: #### U ACR #### [facility] CLIA [id number] [address] [place] [address] [place] PAP DISCLAIMER COMMENT The Pap Smear is a screening test for cervical cancer. False negative results occur with all screening tests, emphasizing the need for rescreening at recommended intervals, and clinical correlation. Normal [facility] Comment on above: Order Comment: Speci men Type: URINE SPECIMEN Ordering Facility: [facility] Address: [address] [place], [place] [address] Performed By: #### U ACR #### [facility] CLIA [id number] [address] [place] [address] [place] PAP BEE TENDER COMMENT This specimen has be en analyzed by the ThinPrep Imaging System, an automated imaging and review system, which assists the laboratory in evaluating cells on ThinPrep Pap tests. Following automated imaging, selected [place] from every slide are reviewed by a molding room supervisor. Normal [facility] Comment on above: Order Comment: Speci men Type: URINE SPECIMEN Ordering Facility: [facility] Address: [address] [place] [address] Performed By: #### U ACR #### [facility] CLIA [id number] [address] [place] [address] OF [place] Georgie 08-17-2024 EBONIN Telephone (OBGYWM) VILMA DIAL I ([id number]) 1955 F Date Time Provider Department 08/17/24 AGNIESZKA MELCHOR OBDARYL During your visit today, we recorded the following information about you: Priyanka Mccabe 08/17/2024 1:05 PM Signed Patient called to r/s annual and mammography new appointment is 09/22/24 and current order will have on 09/17/[address] new order Agnieszka Melchor APRN.CNP 08/18/2024 7:41 AM Signed Order filed. Agnieszka Melchor APRN.CNP Allergies As of Date: 08/17/2024 Noted Allergy Reaction CHLORTHALIDONE 08/15/2024 16 - Unknown Comments: Cramps and low magnesium CIPROFLOXACIN 10/26/2014 14 - Other: See Comments Comments: Change in urine color JANUVIA (SITAGLIPTIN) 02/22/2018 8 - GI Upset JARDIANCE (EMPAGLIFLOZIN) 05/04/2019 5 - Intolerance MACRODANTIN (NITROFURANTOIN) 11/20/2005 OZEMPIC (SEMAGLUTIDE) 09/17/2021 16 - Unknown PRAVASTATIN 08/25/2022 17 - Myalgia ULTRAM (TRAMADOL HCL) 01/07/2013 7 - Swelling ZANAFLEX (TIZANIDINE) 09/17/2021 16 - Unknown Comments: Heart racing Date Reviewed: 07/29/2024 Reviewed by: Shelia Parrish MA - Fully Assessed Reason for Visit: Orders [681] Primary Visit Diagnosis:Encounter for screening mammogram for malignant neoplasm of breast [Z12.31] Order(s):[facility] SCREENING [facility] DAVID [[id number]] Order #: [id number] FUTURE Prescriptions as of 10/10/2024 - glimepiride (AMARYL) 2 mg tablet Take 2 mg by mouth daily with breakfast. - losartan (COZAAR) 100 mg tablet Take 1 tablet by mouth once daily. - nefazodone (SERZONE) 200 mg tablet Take 1 tablet by mouth once daily. - omeprazole (PRILOSEC) 40 mg capsule Take 1 capsule by mouth every morning. - fenofibrate nanocrystallized (TRICOR) 48 mg tablet - etodolac (LODINE) 400 mg tablet Take 1 tablet by mouth every 12 hours. PRN - vitamin E mixed 400 unit cap Take by mouth. - metFORMIN (GLUCOPHAGE) 1,000 mg tablet Take 1,000 mg by mouth twice daily. - sucralfate (CARAFATE) 1 gram tablet Take 1 tablet by mouth before meals and at bedtime. prn - dapagliflozin (FARXIGA) 10 mg tablet Take 10 mg by mouth once daily. - blood sugar diagnostic (BLOOD GLUCOSE TEST) test strip Test blood sugar(s) bid times daily. Dx: Type 2 DM - Controlled E11.9 Insulin: No - Cholecalciferol, Vitamin D3, 25 mcg (1,000 unit) cap Take 1,000 Units by mouth once daily. - baclofen (LIORESAL) 10 mg tablet - hydrocortisone (ANUSOL-HC) 2.5 % rectal cream by RECTAL route two times a day. PRN - Diclofenac Sodium (VOLTAREN) 1 % gel Apply 1 g to affected area twice daily. - OMEGA-3 FATTY ACIDS/FISH OIL (OMEGA 3 FISH OIL ORAL) Take by mouth. - MULTIVITAMIN TAB Take one(1) tablet daily. Problem List As Of Date 08/17/2024 Noted Resolved Diffuse myofascial pain syndrome [M79.18] 01/09/2016 Pain of both hip joints [M25.551, M25.552] 01/09/2016 DDD (degenerative disc disease), thoracic [M51.*01/09/2016 Type 2 diabetes mellitus with diabetic polyneur*04/21/2016 Morbid obesity with BMI of 50.0-59.9, adult (HC*06/18/2021 Primary hypertension [I10] 09/17/2021 Mixed hyperlipidemia [E78.2] 09/17/2021 TERI (obstructive sleep apnea) [G47.33] 09/17/2021 Systemic lupus erythematosus (HCC) [M32.9] 09/17/2021 History of colonic polyps [Z86.0100] 09/17/2021 Polyneuropathy [G62.9] 03/10/2022 Flow murmur [R01.1] 03/12/2022 Fatty liver [K76.0] 11/19/2022 11/20/2023 Hypomagnesemia [E83.42] 11/20/2022 Portal hypertensive gastropathy (HCC) [K76.6, K*05/19/2023 Mild episode of recurrent major depressive diso*05/19/2023 Vitamin D deficiency [E55.9] 05/28/2017 Diagnosed: 08/17/2023 Uncontrolled type 2 diabetes mellitus with hype*08/02/2020 Diagnosed: 08/17/2023 Irritable bowel syndrome [K58.9] 11/07/2022 Diagnosed: 08/17/2023 Abnormal cardiovascular stress test [R94.39] 11/20/2023 Diagnosed: 11/20/2023 Chest pain [R07.9] 11/20/2023 11/20/2023 Diagnosed: 11/20/2023 Class 3 severe obesity due to excess calories w*08/18/2023 11/20/2023 Diagnosed: 11/20/2023 Diverticular disease [K57.90] 11/20/2023 Diagnosed: 11/20/2023 Fibromyalgia [M79.7] 08/18/2023 Diagnosed: 11/20/2023 Left lower quadrant abdominal pain [R10.32] 11/07/2022 11/20/2023 Diagnosed: 11/20/2023 Nonalcoholic steatohepatitis (KOTHARI) [K75.81] 11/20/2023 Diagnosed: 11/20/2023 Primary insomnia [F51.01] 08/18/2023 Diagnosed: 11/20/2023 Primary osteoarthritis of both knees [M17.0] 08/18/2023 Diagnosed: 11/20/2023 Rectal hemorrhage [K62.5] 11/20/2023 11/20/2023 Diagnosed: 11/20/2023 Encounter Status:Closed by PRIYANKA MCCABE on 10/10/24 [facility] Orthopedic Visit Reporton Orthopedic Visit Report [facility] [address] [place] [address] OFFICE VISIT Date of Service: 08/10/24 MR#: [id number] Acct: [id number] Name: VILMA DIAL I Rep #: [id number] : 1955 Provider: Dr. Carson johnson DO Age/Sex: 68/F Location[place] [facility] Status: Signed Intake Vital Signs 07/12/24 10:56 08/10/24 07:59 Height 5 ft 5 in 5 ft 5 in Weight: 305 lb 302 lb 4 oz BMI 50.7 50.3 BP 194/79 H Blood Pressure Location Rt brachial Position Sitting Respiration 16 Pulse 63 Pulse Source Monitor Temp 98.3 F Temp Source Temporal Pulse Oximetry (%) 93 Oxygen Delivery Method room air Intake Visit Reasons: RIGHT KNEE Allergies tizanidine (From Zanaflex) Allergy (Intermediate, Verified 08/10/24 08:00) heart racing nitrofurantoin macrocrystalline (From Macrodantin) Allergy (Verified 08/10/24 08:00) Unknown tramadol HCl (From Ultram) Allergy (Verified 08/10/24 08:00) Swelling sitagliptin (From Januvia) Adverse Reaction (Severe, Verified 08/10/24 08:00) Nausea lisinopril Adverse Reaction (Intermediate, Verified 08/10/24 08:00) muscle spasms semaglutide (From Ozempic) Adverse Reaction (Intermediate, Verified 08/10/24 08:00) constipated ciprofloxacin (From Cipro) Adverse Reaction (Verified 08/10/24 08:00) RED URINE ciprofloxacin HCl (From Cipro) Adverse Reaction (Verified 08/10/24 08:00) RED URINE empagliflozin (From Jardiance) Adverse Reaction (Verified 08/10/24 08:00) stomach pain Medications ???Medication ???Instructions ???Recorded ???Confirmed ???Type baclofen 10 mg tablet 10 mg PO TID PRN Spasms 04/23/16 08/10/24 History cholecalciferol (vitamin D3) 50 2,000 unit PO DAILY 07/07/19 08/10/24 History mcg (2,000 unit) chewable tablet fish oil-dha-epa 1,200 mg-144 1 ea PO DAILY 07/07/19 08/10/24 History mg-216 mg capsule multivitamin with minerals 1 ea PO DAILY 07/07/19 08/10/24 History diclofenac sodium 1 % topical gel 2 gm topical BID PRN Pain 01/29/21 08/10/24 History etodolac 400 mg tablet 400 mg PO BID PRN Pain 04/25/22 08/10/24 History nefazodone 200 mg tablet 200 mg PO QHS ANXIETY 05/07/22 08/10/24 History omeprazole 40 mg capsule,delayed 40 mg PO DAILY 12/10/22 08/10/24 History release vitamin E (dl, acetate) 450 mg 450 mg PO DAILY 06/08/23 08/10/24 History (1,000 unit) capsule blood sugar diagnostic (OneTouch #180 ea 06/24/23 08/10/24 Rx Verio test strips) flash glucose scanning reader #1 ea 12/09/23 12/09/23 Rx (FreeStyle Lesley 2 Lamar) flash glucose sensor (FreeStyle #2 ea 12/09/23 12/09/23 Rx Lesley 2 Sensor kit) fenofibrate nanocrystallized 48 mg 48 mg PO QHS 100 days #100 tabs 04/05/24 08/10/24 Rx tablet (Tricor) Farxiga 10 mg tablet 10 mg PO DAILY #90 tabs 04/13/24 08/10/24 Rx (dapagliflozin propanediol) glimepiride 2 mg tablet 3 mg (1.5 x 2 mg) PO DAILY #135 04/13/24 08/10/24 Rx tabs losartan 100 mg tablet 100 mg PO QDAY 04/13/24 08/10/24 History metformin 1,000 mg tablet 1,000 mg PO BID #180 tabs 04/13/24 08/10/24 Rx chlorthalidone 25 mg tablet 25 mg PO QDAY 08/10/24 08/10/24 History sucralfate 1 gram tablet 1 g PO QACHS 08/10/24 08/10/24 History Have you fallen in the past year?: Yes PFSH Medical History Morbid obesity with BMI of 50.0-59.9, adult Vertigo Wears glasses Post-menopausal Diabetes Fatty liver Superfic phlebitis-leg Easy bruising Restless legs Back pain Dietary restriction History of ulceration History of diverticulitis Hypertension Gastric reflux Non-smoker CPAP (continuous positive airway pressure) dependence Leg cramps History of pain when walking History of edema History of echocardiogram History of stress test Cardiology follow-up encounter Chest pain Essential hypertension COVID-19 (06/24/21) Diabetes Seasonal allergies Stomach ulcer GERD (gastroesophageal reflux disease) Fibromyalgia Polycystic ovary Pneumonia Pancreatitis Osteoarthritis Lupus IBS (irritable bowel syndrome) Arthritis Anxiety and depression Insomnia SLE (systemic lupus erythematosus) Surgical History History of cardiac catheterization Hx of colonoscopy H/O breast biopsy H/O hernia repair H/O: hysterectomy Hx of cholecystectomy Hx of appendectomy Hx of tonsillectomy Family History Mother Arthritis Diabetes Heart disease Hypertension High cholesterol Thyroid disorder Lupus Father Liver disease Other Alcohol abuse Anemia Anxiety Asthma Autoimmune disease CVA (cerebral vascular accident) Colon cancer Depression Melanoma Mental disorder Myocardial infarction Psychiatric (more content not included)... [facility] 08-04-2024 [facility] Telephone (FAMPWS) YOJANAVILMA Cameron ([id number]) 1955 F Date Time Provider Department 08/04/24 RON DUENAS During your visit today, we recorded the following information about you: Lissett Almendarez LPN 08/04/2024 12:14 PM Signed ----- Message from Brenda Toth sent at 08/04/2024 8:19 AM EDT ----- Your magnesium level is slightly low at 1.6. Other electrolytes are okay. I think we can control that with just diet. Please increase these foods: Green leafy vegetables, such as spinach, legumes, nuts, seeds, and whole grains, avocados, soymilk, and dark chocolate are good sources. In general, foods containing dietary fiber provide magnesium. Magnesium is also added to some breakfast cereals and other fortified foods. Lissett Almendarez LPN 08/04/2024 12:19 PM Signed Spoke with pt and information listed below given. Pt verbalizes understanding. Lissett Almendarez LPN Allergies As of Date: 08/04/2024 Noted Allergy Reaction CIPROFLOXACIN 10/26/2014 14 - Other: See Comments Comments: Change in urine color JANUVIA (SITAGLIPTIN) 02/22/2018 8 - GI Upset JARDIANCE (EMPAGLIFLOZIN) 05/04/2019 5 - Intolerance MACRODANTIN (NITROFURANTOIN) 11/20/2005 OZEMPIC (SEMAGLUTIDE) 09/17/2021 16 - Unknown PRAVASTATIN 08/25/2022 17 - Myalgia ULTRAM (TRAMADOL HCL) 01/07/2013 7 - Swelling ZANAFLEX (TIZANIDINE) 09/17/2021 16 - Unknown Comments: Heart racing Date Reviewed: 07/29/2024 Reviewed by: Shelia Parrish MA - Fully Assessed Reason for Visit: Results [95] Prescriptions as of 08/04/2024 - chlorthalidone (HYGROTON) 25 mg tablet Take 1 tablet by mouth once daily. - glimepiride (AMARYL) 2 mg tablet Take 2 mg by mouth daily with breakfast. - losartan (COZAAR) 100 mg tablet Take 1 tablet by mouth once daily. - nefazodone (SERZONE) 200 mg tablet Take 1 tablet by mouth once daily. - omeprazole (PRILOSEC) 40 mg capsule Take 1 capsule by mouth every morning. - fenofibrate nanocrystallized (TRICOR) 48 mg tablet - etodolac (LODINE) 400 mg tablet Take 1 tablet by mouth every 12 hours. PRN - vitamin E mixed 400 unit cap Take by mouth. - metFORMIN (GLUCOPHAGE) 1,000 mg tablet Take 1,000 mg by mouth twice daily. - sucralfate (CARAFATE) 1 gram tablet Take 1 tablet by mouth before meals and at bedtime. prn - dapagliflozin (FARXIGA) 10 mg tablet Take 10 mg by mouth once daily. - blood sugar diagnostic (BLOOD GLUCOSE TEST) test strip Test blood sugar(s) bid times daily. Dx: Type 2 DM - Controlled E11.9 Insulin: No - Cholecalciferol, Vitamin D3, 25 mcg (1,000 unit) cap Take 1,000 Units by mouth once daily. - baclofen (LIORESAL) 10 mg tablet - hydrocortisone (ANUSOL-HC) 2.5 % rectal cream by RECTAL route two times a day. PRN - Diclofenac Sodium (VOLTAREN) 1 % gel Apply 1 g to affected area twice daily. - OMEGA-3 FATTY ACIDS/FISH OIL (OMEGA 3 FISH OIL ORAL) Take by mouth. - MULTIVITAMIN TAB Take one(1) tablet daily. Problem List As Of Date 08/04/2024 Noted Resolved Diffuse myofascial pain syndrome [M79.18] 01/09/2016 Pain of both hip joints [M25.551, M25.552] 01/09/2016 DDD (degenerative disc disease), thoracic [M51.*01/09/2016 Type 2 diabetes mellitus with diabetic polyneur*04/21/2016 Morbid obesity with BMI of 50.0-59.9, adult (HC*06/18/2021 Primary hypertension [I10] 09/17/2021 Mixed hyperlipidemia [E78.2] 09/17/2021 TERI (obstructive sleep apnea) [G47.33] 09/17/2021 Systemic lupus erythematosus (HCC) [M32.9] 09/17/2021 History of colonic polyps [Z86.0100] 09/17/2021 Polyneuropathy [G62.9] 03/10/2022 Flow murmur [R01.1] 03/12/2022 Fatty liver [K76.0] 11/19/2022 11/20/2023 Hypomagnesemia [E83.42] 11/20/2022 Portal hypertensive gastropathy (HCC) [K76.6, K*05/19/2023 Mild episode of recurrent major depressive diso*05/19/2023 Vitamin D deficiency [E55.9] 05/28/2017 Diagnosed: 08/17/2023 Uncontrolled type 2 diabetes mellitus with hype*08/02/2020 Diagnosed: 08/17/2023 Irritable bowel syndrome [K58.9] 11/07/2022 Diagnosed: 08/17/2023 Abnormal cardiovascular stress test [R94.39] 11/20/2023 Diagnosed: 11/20/2023 Chest pain [R07.9] 11/20/2023 11/20/2023 Diagnosed: 11/20/2023 Class 3 severe obesity due to excess calories w*08/18/2023 11/20/2023 Diagnosed: 11/20/2023 Diverticular disease [K57.90] 11/20/2023 Diagnosed: 11/20/2023 Fibromyalgia [M79.7] 08/18/2023 Diagnosed: 11/20/2023 Left lower quadrant abdominal pain [R10.32] 11/07/2022 11/20/2023 Diagnosed: 11/20/2023 Nonalcoholic steatohepatitis (KOTHARI) [K75.81] 11/20/2023 Diagnosed: 11/20/2023 Primary insomnia [F51.01] 08/18/2023 Diagnosed: 11/20/2023 Primary osteoarthritis of both knees [M17.0] 08/18/2023 Diagnosed: 11/20/2023 Rectal hemorrhage [K62.5] 11/20/2023 11/20/2023 Diagnosed: 11/20/2023 Encounter Status:Closed by LISSETT ALMENDAREZ on 08/04/24 Normal [facility] Basic metabolic 2000 panelon 08-02-2024 Anion gap [Moles/Vol] 14 mmol/L Normal 8-15 [facility] Comment on above: Order Comment: Speci men Type: BLOOD SPECIMEN Ordering Facility: [facility] Address: [address] [place] [address] Performed By: #### 2 4321-2, #### [facility] CLIA [id number] [address] [place] [address] [place] Calcium [Mass/Vol] 9.7 mg/dL Normal 8.5-10.2 [place] Comment on above: Order Comment: Speci men Type: BLOOD SPECIMEN Ordering Facility: [facility] Address: [address] [place] [address] Performed By: #### 2 4321-2, #### [facility] CLIA [id number] [address] [place] [address] [place] Chloride [Moles/Vol] 100 mmol/L Normal 98-107 [facility] Comment on above: Order Comment: Speci men Type: BLOOD SPECIMEN Ordering Facility: [facility] Address: [address] [place] [address] Performed By: #### 2 4321-2, #### [facility] CLIA [id number] [address] [place] [address] [place] CO2 [Moles/Vol] 24 mmol/L Normal 22-30 [facility] Comment on above: Order Comment: Speci men Type: BLOOD SPECIMEN Ordering Facility: [facility] Address: [address] [place], [place] [address] Performed By: #### 2 4321-2, #### [facility] CLIA [id number] [address] [place], [place] [id number] [place] Creatinine [Mass/Vol] 0.86 mg/dL Normal 0.58-0.96 [facility] Comment on above: Order Comment: Speci men Type: BLOOD SPECIMEN Ordering Facility: [facility] Address: [address] [place] [address] Performed By: #### 2 4321-2, 03523-4 #### [facility] CLIA [id number] [address] [place] [address] [place] Creatinine and Glomerular filtration rate.predicted panel (S/P/Bld) 74 mL/min/1.73m??? Normal >=60 [facility] Comment on above: Order Comment: Vanesa gonzalez Type: BLOOD SPECIMEN Ordering Facility: [facility] Address: [address] [place] [address] Result Comment: Juana mated Glomerular Filtration Rate (eGFR) is calculated using the 2020 CKD-EPI creatinine equation. This equation utilizes serum creatinine, sex, and age as parameters. The creatinine assay has traceable calibration to isotope dilution-mass spectrometry. Refer to KDIGO guidelines for clinical interpretation. In patients with unstable renal function, e.g. those with acute kidney injury, the eGFR may not accurately reflect actual GFR. Performed By: #### 2 4321-2, 79003-9 #### [facility] CLIA [id number] [address] [place] [address] [place] Glucose [Mass/Vol] 218 mg/dL High 74-99 [place] Comment on above: Order Comment: Vanesa gonzalez Type: BLOOD SPECIMEN Ordering Facility: [facility] Address: [address] [place] [address] Result Comment: The [place] Diabetes Association (ADA) provides guidance for cutoff values for fasting glucose and random glucose. The ADA defines fasting as no caloric intake for at least 8 hours. Fasting plasma glucose results between 100 to 125 mg/dL indicate increased risk for diabetes (prediabetes). Fasting plasma glucose results greater than or equal to 126 mg/dL meet the criteria for diagnosis of diabetes. In the absence of unequivocal hyperglycemia, results should be confirmed by repeat testing. In a patient with classic symptoms of hyperglycemia or hyperglycemic crisis, random plasma glucose results greater than or equal to 200 mg/dL meet the criteria for diagnosis of diabetes. Reference: Standards of Medical Care in Diabetes 2016, [place] [employer] Association. Diabetes Care. 2016.39(Suppl 1). Performed By: #### 2 4321-2, #### [facility] CLIA [id number] [address] [place] [address] [place] Potassium [Moles/Vol] 4.0 mmol/L Normal 3.7-5.1 [facility] Comment on above: Order Comment: Speci men Type: BLOOD SPECIMEN Ordering Facility: [facility] Address: [address] [place] [address] Performed By: #### 2 432-2, #### [facility] CLIA [id number] [address] [place] [address] [place] Sodium [Moles/Vol] 138 mmol/L Normal 136-144 [place] Comment on above: Order Comment: Speci men Type: BLOOD SPECIMEN Ordering Facility: [facility] Address: [address] [place] [address] Performed By: #### 2 432-2, #### [facility] CLIA [id number] [address] [place] [address] [place] Urea nitrogen [Mass/Vol] 24 mg/dL High 7-21 [facility] Comment on above: Order Comment: Speci men Type: BLOOD SPECIMEN Ordering Facility: [facility] Address: [address] [place] [address] Performed By: #### 2 432-2, #### [facility] CLIA [id number] [address] [place], [place] [id number] [place] Magnesium SerPl-mCncon 08-02 Magnesium [Mass/Vol] 1.6 mg/dL Low 1.7-2.3 [facility] Comment on above: Order Comment: Speci men Type: BLOOD SPECIMEN Ordering Facility: [facility] Address: [address] [place] [address] Performed By: #### 2 432-2, #### [facility] CLIA [id number] [address] [place] [address] [place] CNOVon 07-29-2024 CNOV Office Visit (UCWSTR ) YOJANAVILMA Cameron ([id number]) 1955 F Date Time Provider Department 07/29/24 3:45 PM [facility] During your visit today, we recorded the following information about you: Pulse Respiration Blood pressure Weight 77/minute 18/minute 152/78 137.1 kg Terrance Simons MD 07/29/2024 4:02 PM Signed Patient presents with: Knee Injury: RIGHT knee x 1 day HPI: Knee pain: Duration: felt a shift in her knee yesterday bending over to order picker/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 Excruciating pain with bending the knee Relieving: Pain relievers: Ice, Bengay, Voltaren Associated: history of knee arthritis, knee puffiness Pertinent negatives: Denies numbness, weakness, locking MEDICATIONS: chlorthalidone (HYGROTON) 25 mg tablet Take 1 tablet by mouth once daily. glimepiride (AMARYL) 2 mg tablet Take 2 mg by mouth daily with breakfast. losartan (COZAAR) 100 mg tablet Take 1 tablet by mouth once daily. nefazodone (SERZONE) 200 mg tablet Take 1 tablet by mouth once daily. omeprazole (PRILOSEC) 40 mg capsule Take 1 capsule by mouth every morning. fenofibrate nanocrystallized (TRICOR) 48 mg tablet etodolac (LODINE) 400 mg tablet Take 1 tablet by mouth every 12 hours. PRN vitamin E mixed 400 unit cap Take by mouth. metFORMIN (GLUCOPHAGE) 1,000 mg tablet Take 1,000 mg by mouth twice daily. sucralfate (CARAFATE) 1 gram tablet Take 1 tablet by mouth before meals and at bedtime. prn (Patient taking differently: Take 1 g by mouth three times a day. prn) dapagliflozin (FARXIGA) 10 mg tablet Take 10 mg by mouth once daily. blood sugar diagnostic (BLOOD GLUCOSE TEST) test strip Test blood sugar(s) bid times daily. Dx: Type 2 DM - Controlled E11.9 Insulin: No Cholecalciferol, Vitamin D3, 25 mcg (1,000 unit) cap Take 1,000 Units by mouth once daily. baclofen (LIORESAL) 10 mg tablet hydrocortisone (ANUSOL-HC) 2.5 % rectal cream by RECTAL route two times a day. PRN Diclofenac Sodium (VOLTAREN) 1 % gel Apply 1 g to affected area twice daily. OMEGA-3 FATTY ACIDS/FISH OIL (OMEGA 3 FISH OIL ORAL) Take by mouth. MULTIVITAMIN TAB Take one(1) tablet daily. ALLERGIES: ALLERGIES Allergen Reactions Ciprofloxacin Other: See Comments Change in urine color Januvia [Sitaglipti* GI Upset Jardiance [Empaglif* Intolerance Macrodantin [Nitrof* Ozempic [Semaglutid* Unknown Pravastatin Myalgia Ultram [Tramadol Hc* Swelling Zanaflex [Tizanidin* Unknown Heart racing VITALS: BP 152/78 Pulse 77 Resp 18 Wt (!) 137.1 kg (302 lb 4 oz) LMP 11/09/2005 SpO2 95% BMI 50.06 kg/m? PHYSICAL EXAM: GEN: pleasant, alert, no acute distress KNEE: right. No erythema or deformity. Evaluation of effusion limited by body habitus. Very limited flexion due to pain. No crepitus. Medial anterior joint line tenderness. No patellar tenderness. Stable to varus and valgus strain. Negative anterior drawer test. Negative posterior drawer test. ASSESSMENT/PLAN: 1. Acute pain of right knee - ICD9: 719.46, ICD10: M25.561 - XR KNEE GENERAL 4V AP BOTH/PA BOTH/LAT/MERC RIGHT worsened degenerative changes. Acute fracture or dislocation. Treat with rest, ice, and anti-inflammatory. NSAIDs are limited due to stomach irritation. She has etodolac from her java architect and will use that over the weekend. Follow-up with orthopedics if not improving. Terrance Simons MD Allergies As of Date: 07/29/2024 Noted Allergy Reaction CIPROFLOXACIN 10/26/2014 14 - Other: See Comments Comments: Change in urine color JANUVIA (SITAGLIPTIN) 02/22/2018 8 - GI Upset JARDIANCE (EMPAGLIFLOZIN) 05/04/2019 5 - Intolerance MACRODANTIN (NITROFURANTOIN) 11/20/2005 OZEMPIC (SEMAGLUTIDE) 09/17/2021 16 - Unknown PRAVASTATIN 08/25/2022 17 - Myalgia ULTRAM (TRAMADOL HCL) 01/07/2013 7 - Swelling ZANAFLEX (TIZANIDINE) 09/17/2021 16 - Unknown Comments: Heart racing Date Reviewed: 07/29/2024 Reviewed by: Shelia Parrish MA - Fully Assessed Reason for Visit: Knee Injury [1981] Cmt: RIGHT knee x 1 day Primary Visit Diagnosis:Acute pain of right knee [M25.561] Order(s):XR KNEE GENERAL 4V AP BOTH/PA BOTH/LAT/MERC RIGHT [[id number]] Order #: [id number] FUTURE Prescriptions as of 07/29/2024 - chlorthalidone (HYGROTON) 25 mg tablet Take 1 tablet by mouth once daily. - glimepiride (AMARYL) 2 mg tablet Take 2 mg by mouth daily with breakfast. - losartan (COZAAR) 100 mg tablet Take 1 tablet by mouth once daily. - nefazodone (SERZONE) 200 mg tablet Take 1 tablet by mouth once daily. - omeprazole (PRILOSEC) 40 mg capsule Take 1 capsule by mouth every morning. - fenofibrate nanocrystallized (TRICOR) 48 mg tablet - etodolac (LODINE) 400 mg tablet Take 1 tablet by mouth every 12 hour (more content not included)... Normal [facility] Georgie 07-29-2024 EBONIN Telephone (FAMWS) NIEVES DIALAN I ([id number]) 1955 F Date Time Provider Department 07/29/24 RON DUENAS During your visit today, we recorded the following information about you: Jenny Knapp LPN 07/29/2024 2:26 PM Signed Patient calling she twisted her right knee and having issues trying to bend her right leg. She thinks it is swollen, having problems sitting on the toilet and getting back up. Advised PCP is out and no appts today with [facility]. Advised to go to express care for evaluation, aware Radiology closes at 5 pm. Allergies As of Date: 07/29/2024 Noted Allergy Reaction CIPROFLOXACIN 10/26/2014 14 - Other: See Comments Comments: Change in urine color JANUVIA (SITAGLIPTIN) 02/22/2018 8 - GI Upset JARDIANCE (EMPAGLIFLOZIN) 05/04/2019 5 - Intolerance MACRODANTIN (NITROFURANTOIN) 11/20/2005 OZEMPIC (SEMAGLUTIDE) 09/17/2021 16 - Unknown PRAVASTATIN 08/25/2022 17 - Myalgia ULTRAM (TRAMADOL HCL) 01/07/2013 7 - Swelling ZANAFLEX (TIZANIDINE) 09/17/2021 16 - Unknown Comments: Heart racing Date Reviewed: 06/17/2024 Reviewed by: Brenda Toth APRN.APPEALS BOARD REFEREE - Fully Assessed Reason for Visit: Patient Update [1234] Prescriptions as of 07/29/2024 - chlorthalidone (HYGROTON) 25 mg tablet Take 1 tablet by mouth once daily. - glimepiride (AMARYL) 2 mg tablet Take 2 mg by mouth daily with breakfast. - losartan (COZAAR) 100 mg tablet Take 1 tablet by mouth once daily. - nefazodone (SERZONE) 200 mg tablet Take 1 tablet by mouth once daily. - omeprazole (PRILOSEC) 40 mg capsule Take 1 capsule by mouth every morning. - fenofibrate nanocrystallized (TRICOR) 48 mg tablet - etodolac (LODINE) 400 mg tablet Take 1 tablet by mouth every 12 hours. PRN - vitamin E mixed 400 unit cap Take by mouth. - metFORMIN (GLUCOPHAGE) 1,000 mg tablet Take 1,000 mg by mouth twice daily. - sucralfate (CARAFATE) 1 gram tablet Take 1 tablet by mouth before meals and at bedtime. prn - dapagliflozin (FARXIGA) 10 mg tablet Take 10 mg by mouth once daily. - blood sugar diagnostic (BLOOD GLUCOSE TEST) test strip Test blood sugar(s) bid times daily. Dx: Type 2 DM - Controlled E11.9 Insulin: No - Cholecalciferol, Vitamin D3, 25 mcg (1,000 unit) cap Take 1,000 Units by mouth once daily. - baclofen (LIORESAL) 10 mg tablet - hydrocortisone (ANUSOL-HC) 2.5 % rectal cream by RECTAL route two times a day. PRN - Diclofenac Sodium (VOLTAREN) 1 % gel Apply 1 g to affected area twice daily. - OMEGA-3 FATTY ACIDS/FISH OIL (OMEGA 3 FISH OIL ORAL) Take by mouth. - MULTIVITAMIN TAB Take one(1) tablet daily. Problem List As Of Date 07/29/2024 Noted Resolved Diffuse myofascial pain syndrome [M79.18] 01/09/2016 Pain of both hip joints [M25.551, M25.552] 01/09/2016 DDD (degenerative disc disease), thoracic [M51.*01/09/2016 Type 2 diabetes mellitus with diabetic polyneur*04/21/2016 Morbid obesity with BMI of 50.0-59.9, adult (HC*06/18/2021 Primary hypertension [I10] 09/17/2021 Mixed hyperlipidemia [E78.2] 09/17/2021 TERI (obstructive sleep apnea) [G47.33] 09/17/2021 Systemic lupus erythematosus (HCC) [M32.9] 09/17/2021 History of colonic polyps [Z86.0100] 09/17/2021 Polyneuropathy [G62.9] 03/10/2022 Flow murmur [R01.1] 03/12/2022 Fatty liver [K76.0] 11/19/2022 11/20/2023 Hypomagnesemia [E83.42] 11/20/2022 Portal hypertensive gastropathy (HCC) [K76.6, K*05/19/2023 Mild episode of recurrent major depressive diso*05/19/2023 Vitamin D deficiency [E55.9] 05/28/2017 Diagnosed: 08/17/2023 Uncontrolled type 2 diabetes mellitus with hype*08/02/2020 Diagnosed: 08/17/2023 Irritable bowel syndrome [K58.9] 11/07/2022 Diagnosed: 08/17/2023 Abnormal cardiovascular stress test [R94.39] 11/20/2023 Diagnosed: 11/20/2023 Chest pain [R07.9] 11/20/2023 11/20/2023 Diagnosed: 11/20/2023 Class 3 severe obesity due to excess calories w*08/18/2023 11/20/2023 Diagnosed: 11/20/2023 Diverticular disease [K57.90] 11/20/2023 Diagnosed: 11/20/2023 Fibromyalgia [M79.7] 08/18/2023 Diagnosed: 11/20/2023 Left lower quadrant abdominal pain [R10.32] 11/07/2022 11/20/2023 Diagnosed: 11/20/2023 Nonalcoholic steatohepatitis (KOTHARI) [K75.81] 11/20/2023 Diagnosed: 11/20/2023 Primary insomnia [F51.01] 08/18/2023 Diagnosed: 11/20/2023 Primary osteoarthritis of both knees [M17.0] 08/18/2023 Diagnosed: 11/20/2023 Rectal hemorrhage [K62.5] 11/20/2023 11/20/2023 Diagnosed: 11/20/2023 Encounter Status:Closed by JENNY KNAPP on 07/29/24 [facility] XR KNEE 4V AP/PA BOTH+LAT/ME R RTon 07-29-2024 XR KNEE 4V AP/PA BOTH+LAT/FRENCH RT * * *Final Report* * * DATE OF EXAM: Jul 29 2024 3:39PM WOX 5203 - XR KNEE 4V AP/PA BOTH+LAT/FRENCH RT / PROCEDURE REASON: Acute pain of right knee * * * * Physician Interpretation * * * * EXAMINATION: XR KNEE 4V AP/PA BOTH+LAT/FRENCH RT CLINICAL HISTORY: Right knee pain Technique: XR KNEE 4V AP/PA BOTH+LAT/FRENCH RT -- RIGHT with 4 views on 5 images Comparison: X-ray right knee 10/26/2019 RESULT: No acute fracture or dislocation. Increasing medial compartment joint space narrowing with subchondral sclerosis. Tricompartment marginal osteophytes. IMPRESSION: No acute fracture. Worsening degenerative disease of the right knee. Table Tender Sludge: [facility] Transcribe Date/Time: Jul 29 2024 3:49P Dictated by : CARIDAD PAGE MD This examination was interpreted and the report reviewed and electronically signed by: CARIDAD PAGE MD on Jul 29 2024 3:50PM EST [id number] Normal [facility] XR Knee - right 4 Viewson IMPRESSION: No acute fracture. Worsening degenerative disease of the right knee. Table Tender Sludge: [facility] Transcribe Date/Time: Jul 29 2024 3:49P Dictated by : CARIDAD PAGE MD This examination was interpreted and the report reviewed and electronically signed by: CARIDAD PAGE MD on Jul 29 2024 3:50PM EST DIVISION OF RADIOLOGY * * *Final Report* * * DATE OF EXAM: Jul 29 2024 3:39PM WOX 5203 - XR KNEE 4V AP/PA BOTH+LAT/FRENCH RT / PROCEDURE REASON: Acute pain of right knee * * * * Physician Interpretation * * * * EXAMINATION: XR KNEE 4V AP/PA BOTH+LAT/FRENCH RT CLINICAL HISTORY: Right knee pain Technique: XR KNEE 4V AP/PA BOTH+LAT/FRENCH RT -- RIGHT with 4 views on 5 images Comparison: X-ray right knee 10/26/2019 RESULT: No acute fracture or dislocation. Increasing medial compartment joint space narrowing with subchondral sclerosis. Tricompartment marginal osteophytes. DIVISION OF RADIOLOGY Provider, [facility] - 07/29/2024 * * *Final Report* * * DATE OF EXAM: Jul 29 2024 3:39PM WOX 5203 - XR KNEE 4V AP/PA BOTH+LAT/FRENCH RT / PROCEDURE REASON: Acute pain of right knee * * * * Physician Interpretation * * * * EXAMINATION: XR KNEE 4V AP/PA BOTH+LAT/FRENCH RT CLINICAL HISTORY: Right knee pain Technique: XR KNEE 4V AP/PA BOTH+LAT/FRENCH RT -- RIGHT with 4 views on 5 images Comparison: X-ray right knee 10/26/2019 RESULT: No acute fracture or dislocation. Increasing medial compartment joint space narrowing with subchondral sclerosis. Tricompartment marginal osteophytes. IMPRESSION IMPRESSION: No acute fracture. Worsening degenerative disease of the right knee. Table Tender Sludge: ED Transcribe Date/Time: Jul 29 2024 3:49P Dictated by : CARIDAD PAGE MD This examination was interpreted and the report reviewed and electronically signed by: CARIDAD PAGE MD on Jul 29 2024 3:50PM EST [facility] Radiology Study observation (narrative) Rosy cortez [facility] XR Knee - right 4 ViewsOrder ed By: [facility] Provider on 07-29-2024 [facility] ABD Limited w/ Elastographyo n 07-25-2024 ABD Limited w/ Elastography [facility] [address] [place], [place] [address] ABD Limited w/ Elastography MR#: [id number] Acct: [id number] Name: VILMA DIAL I Rep #: [id number] : 1955 F 68 From: Zeyad portillo MD PCP: Dr. Ron Duenas MD Status: REG CLI Study: ABD Limited w/ Elastography Date of Exam: 05/11 Exam# [id number] Ordering [place]: [place] [id number] STUDY: ABDOMINAL ULTRASOUND - RIGHT UPPER QUADRANT; ELASTOGRAPHY REASON FOR VISIT: Female, 68 years old. NAFL D TECHNIQUE: Ultrasound evaluation of the right upper quadrant was performed with real-time and static javed-scale imaging. Point quantification shear wave elastography was performed ([facility]). TECHNICAL QUALITY: Adequate. COMPARISON: Comparison is made with prior study dated November 23, 2023. FINDINGS: Liver: The liver is enlarged and measures 20.7 cm. There is increased echogenicity consistent with fatty infiltration. The bile ducts are within normal limits. There is hepatic color flow. The direction of portal flow is hepatopetal. There is no demonstrated mass lesion. Median liver stiffness measured 6.2 kPa. Gallbladder: The patient is status post cholecystectomy. Common Bile Duct (C.B.D.): The common bile duct measures 6.6 mm. Pancreas: There is normal echogenicity of the visualized pancreas. There is no demonstrated pancreatic mass or cyst. Right Kidney: Normal size of the right kidney. The right kidney measures 12.8 cm x 6.1 cm x 4.7 cm. Normal renal cortex. The right cortex measures 1.8 cm. There is no demonstrated renal mass or cyst. There is no right hydronephrosis. IMPRESSION: 1. Liver stiffness measures 6.2 kPa compatible with F0-F1 (Normal to mild liver fibrosis) Metavir score. 2. Hepatomegaly and fatty infiltration of the liver. Electronically Signed: Zeyad Neri MD at 12:53 EDT , [id number] STUDY: ABDOMINAL ULTRASOUND - LEFT UPPER QUADRANT REASON FOR EXAM: Female, 68 years old. NAFLD TECHNIQUE: Transabdominal ultrasound was performed with real-time and static javed scale imaging. TECHNICAL QUALITY: Adequate. COMPARISON: None. FINDINGS: Spleen: Borderline splenomegaly. The spleen measures 12.8 cm x 6.1 cm x 4.7 cm. US/ABD Limited w/ Elastography IMPRESSION: Borderline splenomegaly. Electronically Signed: Zeyad Neri MD at 12:54 EDT , CC: Dr. Myke Bowers MD; Dr. Ron Duenas MD Table Tender Sludge: Signed Normal [facility] AFP, Tumor Markeron 07-12-20 AFP TUMOR ANANDA 5.1 ng/mL Normal 0.0-9.2 [facility] Comment on above: Order Comment: NN Result Comment: [facility] [employer] Electrochemiluminescence Immunoassay (ECLIA) Values obtained with different assay methods or kits cannot be used interchangeably. Results cannot be interpreted as absolute evidence of the presence or absence of malignant disease. This test is not interpretable in females. Performed at: [facility] [id number] Site Specialist: Vasu Groves PhD, Phone: [phone] Performed By: #### L 554.2252, L500.4100, L501.7310, L500.4050, L300.3900, L3300.0700 ####[facility] [address] [place], [place], [address] Gastroenterology Visit Repor ton 07-12-2024 Gastroenterology Visit Report [facility] Gastroenterology [address] [place] [address] OFFICE VISIT Date of Service: 07/12/24 MR#: [id number] Acct: [id number] Name: VILMA DIAL I Rep #: [id number] : 1955 Provider: Dr. Myke cortez MD Age/Sex: 68/F Location: [facility] Status: Signed Intake Vital Signs 04/13/24 10:15 07/12/24 10:56 Height 5 ft 5 in 5 ft 5 in Weight: 299 lb 305 lb BMI 49.7 50.7 BP 137/80 H 194/79 H Blood Pressure Location Lt brachial Rt brachial Position Sitting Sitting Respiration 16 Pulse 64 63 Pulse Source Monitor Monitor Temp 98.3 F Temp Source Temporal Pulse Oximetry (%) 973 93 Oxygen Delivery Method room air room air Intake Visit Reasons: 5 M FU Chief Complaint: f/u fatty liver Accompanied by: Self Is patient in pain?: Yes (Generalized joint pain) Pain scale (1-10): 5 Allergies tizanidine (From Zanaflex) Allergy (Intermediate, Verified 07/12/24 10:51) heart racing nitrofurantoin macrocrystalline (From Macrodantin) Allergy (Verified 07/12/24 10:51) Unknown tramadol HCl (From Ultram) Allergy (Verified 07/12/24 10:51) Swelling sitagliptin (From Januvia) Adverse Reaction (Severe, Verified 07/12/24 10:51) Nausea lisinopril Adverse Reaction (Intermediate, Verified 07/12/24 10:51) muscle spasms semaglutide (From Ozempic) Adverse Reaction (Intermediate, Verified 07/12/24 10:51) constipated ciprofloxacin (From Cipro) Adverse Reaction (Verified 07/12/24 10:51) RED URINE ciprofloxacin HCl (From Cipro) Adverse Reaction (Verified 07/12/24 10:51) RED URINE empagliflozin (From Jardiance) Adverse Reaction (Verified 07/12/24 10:51) stomach pain Medications ???Medication ???Instructions ???Recorded ???Confirmed ???Type baclofen 10 mg tablet 10 mg PO TID PRN Spasms 04/23/16 07/12/24 History cholecalciferol (vitamin D3) 50 2,000 unit PO DAILY 07/07/19 07/12/24 History mcg (2,000 unit) chewable tablet fish oil-dha-epa 1,200 mg-144 1 ea PO DAILY 07/07/19 07/12/24 History mg-216 mg capsule multivitamin with minerals 1 ea PO DAILY 07/07/19 07/12/24 History diclofenac sodium 1 % topical gel 2 gm topical BID PRN Pain 01/29/21 07/12/24 History etodolac 400 mg tablet 400 mg PO BID PRN Pain 04/25/22 07/12/24 History nefazodone 200 mg tablet 200 mg PO QHS ANXIETY 05/07/22 07/12/24 History omeprazole 40 mg capsule,delayed 40 mg PO DAILY 12/10/22 07/12/24 History release vitamin E (dl, acetate) 450 mg 450 mg PO DAILY 06/08/23 07/12/24 History (1,000 unit) capsule blood sugar diagnostic (OneTouch #180 ea 06/24/23 12/04/23 Rx Verio test strips) flash glucose scanning reader #1 ea 12/09/23 12/09/23 Rx (FreeStyle Lesley 2 Lamar) flash glucose sensor (FreeStyle #2 ea 12/09/23 12/09/23 Rx Lesley 2 Sensor kit) fenofibrate nanocrystallized 48 mg 48 mg PO QHS 100 days #100 tabs 04/05/24 07/12/24 Rx tablet (Tricor) Farxiga 10 mg tablet 10 mg PO DAILY #90 tabs 04/13/24 07/12/24 Rx (dapagliflozin propanediol) glimepiride 2 mg tablet 3 mg (1.5 x 2 mg) PO DAILY #135 04/13/24 07/12/24 Rx tabs losartan 100 mg tablet 100 mg PO QDAY 04/13/24 07/12/24 History metformin 1,000 mg tablet 1,000 mg PO BID #180 tabs 04/13/24 07/12/24 Rx Have you fallen in the past year?: No PFSH Medical History Morbid obesity with BMI of 50.0-59.9, adult Vertigo Wears glasses Post-menopausal Diabetes Fatty liver Superfic phlebitis-leg Easy bruising Restless legs Back pain Dietary restriction History of ulceration History of diverticulitis Hypertension Gastric reflux Non-smoker CPAP (continuous positive airway pressure) dependence Leg cramps History of pain when walking History of edema History of echocardiogram History of stress test Cardiology follow-up encounter Chest pain Essential hypertension COVID-19 (06/24/21) Diabetes Seasonal allergies Stomach ulcer GERD (gastroesophageal reflux disease) Fibromyalgia Polycystic ovary Pneumonia Pancreatitis Osteoarthritis Lupus IBS (irritable bowel syndrome) Arthritis Anxiety and depression Insomnia SLE (systemic lupus erythematosus) Surgical History History of cardiac catheterization Hx of colonoscopy H/O breast biopsy H/O hernia repair H/O: hysterectomy Hx of cholecystectomy Hx of appendectomy Hx of tonsillectomy Family History Mother Arthritis Diabetes Heart disease Hypertension High cholesterol Thyroid disorder Lupus Father Liver disease Other Alcohol abuse Anemia Anxiety Asthma Autoimmune disease CVA (cerebral vascular accident) Colon cancer Depression Melanoma Mental disorder Myocardial infarction Psy (more content not included)... Normal [facility] CRPon 07-11-2024 C-REACTIVE PROT 5.57 mg/L High 0.0-3.0 [facility] Comment on above: Order Comment: N Result Comment: C-Re active Protein (CRP) provides useful information for the diagnosis, therapy and monitoring of inflammatory processes and associated diseases. For the evaluation of Relative Risk for Cardiovascular Disease, a High Sensitivity CRP (HSCRP) should be ordered. Performed By: #### L 501.9985, L500.4100, L501.6710, L500.4050, L300.3900, L3300.0700 ####[facility] [address] [place], [address] Comprehensive Metabolic Prof ilon 07-11-2024 Albumin [Mass/Vol] 3.6 g/dL Normal 3.2-5.0 [facility] Comment on above: Order Comment: N Performed By: #### L 501.9985, L500.4100, L501.6710, L500.4050, L300.3900, L3300.0700 ####[facility] [address] [place], [address] Albumin/Globulin [Mass ratio] 1.0 {ratio} Normal 0.9-2.4 [facility] Comment on above: Order Comment: N Performed By: #### L 501.9985, L500.4100, L501.6710, L500.4050, L300.3900, L3300.0700 ####[facility] [address] [place], [address] ALK P 65 U/L Normal 45-117 [facility] Comment on above: Order Comment: N Performed By: #### L 501.9985, L500.4100, L501.6710, L500.4050, L300.3900, L3300.0700 ####[facility] [address] [place], [address] ALT [Catalytic activity/Vol] 20 U/L Normal 13-56 [facility] Comment on above: Order Comment: N Performed By: #### L 501.9985, L500.4100, L501.6710, L500.4050, L300.3900, L3300.0700 ####[facility] [address] [place], [address] AST [Catalytic activity/Vol] 16 U/L Normal 15-37 [facility] Comment on above: Order Comment: N Performed By: #### L 501.9985, L500.4100, L501.6710, L500.4050, L300.3900, L3300.0700 ####[facility] [address] [place], [address] Bilirubin [Mass/Vol] 0.40 mg/dL Normal 0.20-1.00 [facility] Comment on above: Order Comment: N Result Comment: For patients on eltrombopag therapy, use of Dimension [place] TBIL is not recommended. Performed By: #### L 501.9985, L500.4100, L501.6710, L500.4050, L300.3900, L3300.0700 ####[facility] [address] [place], [address] BUN/CRE 26.3 RATIO High 10-20 [facility] Comment on above: Order Comment: N Performed By: #### L 501.9985, L500.4100, L501.6710, L500.4050, L300.3900, L3300.0700 ####[facility] [address] [place], [address] CA,Total 9.5 mg/dL Normal 8.5-10.1 [facility] Comment on above: Order Comment: N Performed By: #### L 501.9985, L500.4100, L501.6710, L500.4050, L300.3900, L3300.0700 ####[facility] [address] [place], [address] Chloride [Moles/Vol] 104 mmol/L Normal 98-107 [facility] Comment on above: Order Comment: N Performed By: #### L 501.9985, L500.4100, L501.6710, L500.4050, L300.3900, L3300.0700 ####[facility] [address] [place], [address] CO2 [Moles/Vol] 26.0 mmol/L Normal 21.0-32.0 [facility] Comment on above: Order Comment: N Performed By: #### L 501.9985, L500.4100, L501.6710, L500.4050, L300.3900, L3300.0700 ####[facility] [address] [place], [place], [phone]) Creatinine [Mass/Vol] 0.76 mg/dL Normal 0.55-1.02 [facility] Comment on above: Order Comment: N Result Comment: The validity of the calculated GFR GFRAA in patients over 70 years has not been determined. Clinical correlation is essential. Performed By: #### L 501.9985, L500.4100, L501.6710, L500.4050, L300.3900, L3300.0700 ####[facility] [address] [place], [place], [phone] EST GFR - AA 97 mL/min Normal >60 [facility] Comment on above: Order Comment: N Result Comment: Afri can [place] GFR Calc Performed By: #### L 501.9985, L500.4100, L501.6710, L500.4050, L300.3900, L3300.0700 ####[facility] [address] [place], [address] GAP 8 Normal 5-15 [facility] Comment on above: Order Comment: N Performed By: #### L 501.9985, L500.4100, L501.6710, L500.4050, L300.3900, L3300.0700 ####[facility] [address] [place], [address] GFR/1.73 sq M.predicted among non-blacks MDRD (S/P/Bld) [Vol rate/Area] 80 mL/min/{1.73_m2} Normal >60 [facility] Comment on above: Order Comment: N Result Comment: Non- GFR Calc Performed By: #### L 501.9985, L500.4100, L501.6710, L500.4050, L300.3900, L3300.0700 ####[facility] [address] [place], [address] Globulin (S) [Mass/Vol] 3.7 g/dL Normal 2.2-4.2 [facility] Comment on above: Order Comment: N Performed By: #### L 501.9985, L500.4100, L501.6710, L500.4050, L300.3900, L3300.0700 ####[facility] [address] [place], [address] Glucose [Mass/Vol] 184 mg/dL High 74-106 [facility] Comment on above: Order Comment: N Result Comment: Fast ing Glucose result greater than or equal to 126 mg/dL suggests DIABETES MELLITUS per A.D.A. criteria. Performed By: #### L 501.9985, L500.4100, L501.6710, L500.4050, L300.3900, L3300.0700 ####[facility] [address] [place], [address] Potassium [Moles/Vol] 3.9 mmol/L Normal 3.5-5.1 [facility] Comment on above: Order Comment: N Performed By: #### L 501.9985, L500.4100, L501.6710, L500.4050, L300.3900, L3300.0700 ####[facility] [address] [place], [address] Sodium [Moles/Vol] 138 mmol/L Normal 136-145 [facility] Comment on above: Order Comment: N Performed By: #### L 501.9985, L500.4100, L501.6710, L500.4050, L300.3900, L3300.0700 ####[facility] [address] [place], [address] T PROT 7.3 g/dL Normal 6.4-8.2 [facility] Comment on above: Order Comment: N Performed By: #### L 501.9985, L500.4100, L501.6710, L500.4050, L300.3900, L3300.0700 ####[facility] [address] [place], [address] Urea nitrogen [Mass/Vol] 20 mg/dL High 7-18 [facility] Comment on above: Order Comment: N Performed By: #### L 501.9985, L500.4100, L501.6710, L500.4050, L300.3900, L3300.0700 ####[facility] [address] [place], [address] Hemoglobin A1con 07-11-2024 HbA1c (Bld) [Mass fraction] 7.1 % High 3.8-5.6 [facility] Comment on above: Result Comment: Norm al < 5.7 % Prediabetic 5.7 - 6.4 % Diabetic >or= 6.5 % Please note range changes. Performed By: #### L 501.9985, L500.4100, L501.6710, L500.4050, L300.3900, L3300.0700 ####[facility] [address] [place], [address] LIPID PANEL (OUTSIDE)on 06-20 LDL:HDL Ratio [facility] Non-HDL Cholesterol [facility] TC:HDL Ratio [facility] VLDL Cholesterol 72 [facility] Lipid Profileon 07-11-2024 Cholesterol [Mass/Vol] 274 mg/dL High 200 Cl [facility] Comment on above: Order Comment: N Result Comment: <200 mg/dL Desirable 200-240 mg/dL Borderline >240 mg/dL High Risk Performed By: #### L 501.9985, L500.4100, L501.6710, L500.4050, L300.3900, L3300.0700 ####[facility] [address] [place], [address] Cholesterol in HDL [Mass/Vol] 46 mg/dL Normal [facility] Comment on above: Order Comment: N Result Comment: The drugs N-Acetylcysteine and Metamizole may falsely depress this assay. Reference Range HDL <40 mg/dL Low HDL Cholesterol HDL >or= 60 mg/dL High HDL Cholesterol Performed By: #### L 501.9985, L500.4100, L501.6710, L500.4050, L300.3900, L3300.0700 ####[facility] [address] [place], [address] Cholesterol in LDL [Mass/Vol] 156 mg/dL High 0-130 [facility] Comment on above: Order Comment: N Performed By: #### L 501.9985, L500.4100, L501.6710, L500.4050, L300.3900, L3300.0700 ####[facility] [address] [place], [address] Cholesterol in VLDL [Mass/Vol] 72 mg/dL High 5-40 [facility] Comment on above: Order Comment: N Performed By: #### L 501.9985, L500.4100, L501.6710, L500.4050, L300.3900, L3300.0700 ####[facility] [address] [place], [address] Triglyceride [Mass/Vol] 359 mg/dL High [facility] Comment on above: Order Comment: N Result Comment: The drugs N-Acetylcysteine and Metamizole may falsely depress this assay. Serum Triglycerides Reference Interval Normal <150 mg/dL Borderline high 150 - 199 mg/dL High 200 - 499 mg/dL Very High > or = 500 mg/dL Performed By: #### L 501.9985, L500.4100, L501.6710, L500.4050, L300.3900, L3300.0700 ####[facility] [address] [place], [place], [address] No Panel Informationon 07-11 [facility] Prothrombin Time w/INRon INR Coag (PPP) [Relative time] 1.0 {INR} Normal [facility] Comment on above: Performed By: #### L 501.9985, L500.4100, L501.6710, L500.4050, L300.3900, L3300.0700 ####[facility] [address] [place], [place], [address] PT Coag (PPP) [Time] 13.3 s Normal 11.7-14.9 [facility] Comment on above: Performed By: #### L 501.9985, L500.4100, L501.6710, L500.4050, L300.3900, L3300.0700 ####[facility] [address] [place], [place], [address] [facility] VILMA DIAL I ([id number]) 1955 F Date Time Provider Department 06/27/24 [facility] During your visit today, we recorded the following information about you: Ana Gould MA 06/27/2024 1:42 PM Signed ----- Message from Brenda Toth sent at 06/27/2024 12:06 PM EDT ----- Ultrasound of the abdominal wall was normal. No hernia. Likely just a strain. Ana Gould MA 06/27/2024 1:44 PM Signed Message left for pt to call back for results. Vanda Sky MA, MA 06/28/2024 9:52 AM Signed Pt reviewed US results on mychart. Sent message to pt with results and update from Provider. If questions to contact the office. Vanda Sagastume MA Allergies As of Date: 06/27/2024 Noted Allergy Reaction CIPROFLOXACIN 10/26/2014 14 - Other: See Comments Comments: Change in urine color JANUVIA (SITAGLIPTIN) 02/22/2018 8 - GI Upset JARDIANCE (EMPAGLIFLOZIN) 05/04/2019 5 - Intolerance MACRODANTIN (NITROFURANTOIN) 11/20/2005 OZEMPIC (SEMAGLUTIDE) 09/17/2021 16 - Unknown PRAVASTATIN 08/25/2022 17 - Myalgia ULTRAM (TRAMADOL HCL) 01/07/2013 7 - Swelling ZANAFLEX (TIZANIDINE) 09/17/2021 16 - Unknown Comments: Heart racing Date Reviewed: 06/17/2024 Reviewed by: Brenda Toth APRN.APPEALS BOARD REFEREE - Fully Assessed Reason for Visit: Results [95] Prescriptions as of 06/28/2024 - glimepiride (AMARYL) 2 mg tablet Take 2 mg by mouth daily with breakfast. - losartan (COZAAR) 100 mg tablet Take 1 tablet by mouth once daily. - nefazodone (SERZONE) 200 mg tablet Take 1 tablet by mouth once daily. - omeprazole (PRILOSEC) 40 mg capsule Take 1 capsule by mouth every morning. - fenofibrate nanocrystallized (TRICOR) 48 mg tablet - etodolac (LODINE) 400 mg tablet Take 1 tablet by mouth every 12 hours. PRN - vitamin E mixed 400 unit cap Take by mouth. - metFORMIN (GLUCOPHAGE) 1,000 mg tablet Take 1,000 mg by mouth twice daily. - sucralfate (CARAFATE) 1 gram tablet Take 1 tablet by mouth before meals and at bedtime. prn - dapagliflozin (FARXIGA) 10 mg tablet Take 10 mg by mouth once daily. - blood sugar diagnostic (BLOOD GLUCOSE TEST) test strip Test blood sugar(s) bid times daily. Dx: Type 2 DM - Controlled E11.9 Insulin: No - Cholecalciferol, Vitamin D3, 25 mcg (1,000 unit) cap Take 1,000 Units by mouth once daily. - baclofen (LIORESAL) 10 mg tablet - hydrocortisone (ANUSOL-HC) 2.5 % rectal cream by RECTAL route two times a day. PRN - Diclofenac Sodium (VOLTAREN) 1 % gel Apply 1 g to affected area twice daily. - OMEGA-3 FATTY ACIDS/FISH OIL (OMEGA 3 FISH OIL ORAL) Take by mouth. - MULTIVITAMIN TAB Take one(1) tablet daily. Problem List As Of Date 06/27/2024 Noted Resolved Diffuse myofascial pain syndrome [M79.18] 01/09/2016 Pain of both hip joints [M25.551, M25.552] 01/09/2016 DDD (degenerative disc disease), thoracic [M51.*01/09/2016 Type 2 diabetes mellitus with diabetic polyneur*04/21/2016 Morbid obesity with BMI of 50.0-59.9, adult (HC*06/18/2021 Primary hypertension [I10] 09/17/2021 Mixed hyperlipidemia [E78.2] 09/17/2021 TERI (obstructive sleep apnea) [G47.33] 09/17/2021 Systemic lupus erythematosus (HCC) [M32.9] 09/17/2021 History of colonic polyps [Z86.010] 09/17/2021 Polyneuropathy [G62.9] 03/10/2022 Flow murmur [R01.1] 03/12/2022 Fatty liver [K76.0] 11/19/2022 11/20/2023 Hypomagnesemia [E83.42] 11/20/2022 Portal hypertensive gastropathy (HCC) [K76.6, K*05/19/2023 Mild episode of recurrent major depressive diso*05/19/2023 Vitamin D deficiency [E55.9] 05/28/2017 Diagnosed: 08/17/2023 Uncontrolled type 2 diabetes mellitus with hype*08/02/2020 Diagnosed: 08/17/2023 Irritable bowel syndrome [K58.9] 11/07/2022 Diagnosed: 08/17/2023 Abnormal cardiovascular stress test [R94.39] 11/20/2023 Diagnosed: 11/20/2023 Chest pain [R07.9] 11/20/2023 11/20/2023 Diagnosed: 11/20/2023 Class 3 severe obesity due to excess calories w*08/18/2023 11/20/2023 Diagnosed: 11/20/2023 Diverticular disease [K57.90] 11/20/2023 Diagnosed: 11/20/2023 Fibromyalgia [M79.7] 08/18/2023 Diagnosed: 11/20/2023 Left lower quadrant abdominal pain [R10.32] 11/07/2022 11/20/2023 Diagnosed: 11/20/2023 Nonalcoholic steatohepatitis (KOTHARI) [K75.81] 11/20/2023 Diagnosed: 11/20/2023 Primary insomnia [F51.01] 08/18/2023 Diagnosed: 11/20/2023 Primary osteoarthritis of both knees [M17.0] 08/18/2023 Diagnosed: 11/20/2023 Rectal hemorrhage [K62.5] 11/20/2023 11/20/2023 Diagnosed: 11/20/2023 Encounter Status:Closed by VANDA SAGASTUME on 06/28/24 Normal [facility] US SOFT TISSUE ABDOMENon US SOFT TISSUE ABDOMEN * * *Final Report * * * DATE OF EXAM: Jun 24 2024 9:20AM [facility] - US SOFT TISSUE ABDOMEN / PROCEDURE REASON: Abdominal wall strain, initial encounter * * * * Physician Interpretation * * * * EXAMINATION: US SOFT TISSUE ABDOMEN CLINICAL INFORMATION: 68 years old Female with Abdominal wall strain, initial encounter. Pain near umbilicus to the right of naval. COMPARISON: None. TECHNIQUE: Targeted grayscale sonography of the RIGHT mid abdominal wall RIGHT of midline in the area of pain was performed. Images were obtained and stored in a permanent archive. RESULT/ IMPRESSION: No sonographic evidence of discrete mass or fluid collection in the imaged soft tissues of the RIGHT mid abdominal wall RIGHT of midline in the area of concern. Table Tender Sludge: ED Transcribe Date/Time: Jun 26 2024 7:55A Dictated by : DANYEL EDWARD DO This examination was interpreted and the report reviewed and electronically signed by: DANYEL EDWARD DO on Jun 26 2024 7:58AM EST [id number] Normal [facility] CNOVon 06-17-2024 CNOV Office Visit (FAMPWS ) VILMA DIAL I ([id number]) 1955 F Date Time Provider Department 06/17/24 10:40 AM [facility] During your visit today, we recorded the following information about you: Pulse Respiration Blood pressure Weight 67/minute 16/minute 164/84 139.1 kg Brenda Toth, EDUCATION OFFICER[facility] 06/17/2024 11:12 AM Signed This is a 68 year old female who presents today with: Patient presents with: Abdominal Pain: Patient believes hernia HISTORY OF PRESENT ILLNESS: Vilma Dial is a 68 year old female. Patient presents with: Abdominal Pain: Patient believes hernia Pain to the right of umbilicus. Hx of umbilical hernia repair. Carried laundry up from basement on on Thursday. No immediate pain. With walking around upstairs, she noticed the pain. Pain has been constant. Initially . Was sharp stinging pain. Has been improving. Today just sore. Much better. No fever or chills. Bowel movements regular and normal. No blood in stool. Walking makes it worse. Lying down makes it better. PAST MEDICAL HISTORY: PAST MEDICAL HISTORY No date: Degenerative disc disease, lumbar No date: Diabetes (HCC) No date: Fibromyalgia No date: GERD (gastroesophageal reflux disease) No date: Hypercholesterolemia No date: Insomnia No date: Lupus (HCC) No date: Osteoarthritis PAST SURGICAL HISTORY No date: ADENOIDECTOMY PRIMARY Comment: Adenoidectomy No date: APPENDECTOMY No date: CHOLECYSTECTOMY Comment: Cholecystectomy 12/24/10: COLONOSCOPY Comment: TVA 02/22/13: COLONOSCOPY Comment: no polyps 04/30/2016: COLONOSCOPY FLX DX W/COLLJ SPEC WHEN PFRMD Comment: Colonoscopy 07/11/2019: COLONOSCOPY FLX DX W/COLLJ SPEC WHEN PFRMD Comment: repeat in 5 years 04/30/2016: ESOPHAGOGASTRODUODENOSC OPY TRANSORAL DIAGNOSTIC Comment: EGD 07/11/2019: ESOPHAGOGASTRODUODENOSC OPY TRANSORAL DIAGNOSTIC Comment: EGD No date: LIG/TRNSXJ FLP TUBE ABDL/VAG APPR UNI/BI Comment: Tubal ligation No date: PAST SURGICAL HISTORY OF Comment: colon polypectomy No date: PAST SURGICAL HISTORY OF Comment: hernia repair No date: TONSILLECTOMY PRIMARY/SECONDARY Comment: Tonsillectomy No date: TOTAL ABDOMINAL HYSTERECT W/WO RMVL TUBE OVARY Comment: Hysterectomy, JESSICA supracervical ALLERGIES Ciprofloxacin, Januvia [Sitagliptin], Jardiance [Empagliflozin], Macrodantin [Nitrofurantoin], Ozempic [Semaglutide], Pravastatin, Ultram [Tramadol Hcl], and Zanaflex [Tizanidine] MEDICATIONS Current Outpatient Medications Medication Sig glimepiride (AMARYL) 2 mg tablet Take 2 mg by mouth daily with breakfast. losartan (COZAAR) 100 mg tablet Take 1 tablet by mouth once daily. nefazodone (SERZONE) 200 mg tablet Take 1 tablet by mouth once daily. omeprazole (PRILOSEC) 40 mg capsule Take 1 capsule by mouth every morning. fenofibrate nanocrystallized (TRICOR) 48 mg tablet etodolac (LODINE) 400 mg tablet Take 1 tablet by mouth every 12 hours. PRN vitamin E mixed 400 unit cap Take by mouth. metFORMIN (GLUCOPHAGE) 1,000 mg tablet Take 1,000 mg by mouth twice daily. sucralfate (CARAFATE) 1 gram tablet Take 1 tablet by mouth before meals and at bedtime. prn (Patient taking differently: Take 1 g by mouth three times a day. prn) dapagliflozin (FARXIGA) 10 mg tablet Take 10 mg by mouth once daily. blood sugar diagnostic (BLOOD GLUCOSE TEST) test strip Test blood sugar(s) bid times daily. Dx: Type 2 DM - Controlled E11.9 Insulin: No Cholecalciferol, Vitamin D3, 25 mcg (1,000 unit) cap Take 1,000 Units by mouth once daily. baclofen (LIORESAL) 10 mg tablet hydrocortisone (ANUSOL-HC) 2.5 % rectal cream by RECTAL route two times a day. PRN Diclofenac Sodium (VOLTAREN) 1 % gel Apply 1 g to affected area twice daily. OMEGA-3 FATTY ACIDS/FISH OIL (OMEGA 3 FISH OIL ORAL) Take by mouth. MULTIVITAMIN TAB Take one(1) tablet daily. No current facility-administered medications for this visit. FAMILY HISTORY Problem Relation Age of Onset Heart Mother Diabetes Mother COPD Mother other (lupus) Mother other (rheumatoid) Mother Heart Sister SD at age 41 Diabetes Sister Aneurysm Sister Abdominal other (aortic stenosis) Sister other (spesis) Sister Social History Tobacco Use Smoking status: Never Passive exposure: Current Smokeless tobacco: Never Vaping Use Vaping status: Never Used Substance Use Topics Alcohol use: No Drug use: No EXAM: BP 164/84 Pulse 67 Resp 16 Wt (!) 139.1 kg (306 lb 9.6 oz) LMP 11/09/2005 SpO2 95% BMI 50.78 kg/m? PHYSICAL EXAM: Physical Exam Vitals reviewed. Constitutional: Appearance: Normal appearance. She is obese. Cardiovascular: Rate and Rhythm: Normal rate and regular rhythm. Pulses: Normal pulses. Heart sounds: Normal heart sounds. Pulmonary: Effort: Pulmonary effort is normal. Breath sounds: Normal breath sounds. Abdominal: Ge (more content not included)... Normal [facility] XR Lumbar spine 3 Viewson IMPRESSION: Lumbar spine degenerative changes and minimal anterolisthesis of L4 on L5. Table Tender Sludge: PSCB Transcribe Date/Time: May 23 2024 7:13P Dictated by : YECENIA THAYER MD This examination was interpreted and the report reviewed and electronically signed by: YECENIA THAYER MD on May 23 2024 7:15PM [facility] * * *Final Report* * * DATE OF EXAM: May 20 2024 11:28AM WOX [id number] - XR LUMBAR 3V AP/LAT/L5-S1 / PROCEDURE REASON: Left sided sciatica * * * * Physician Interpretation * * * * HISTORY: Left sided sciatica . pain for a year but then worse last night in left posterior hip no inj TECHNIQUE: XR LUMBAR 3V AP/LAT/L5-S1 Laterality: NOT APPLICABLE Number of different views (projections): 3 COMPARISON: None RESULT: Counting reference: Lumbosacral junction. For the purposes of this report, L5-S1 is considered the last lumbar type disc space and L4-L5 is considered the level of the iliac crest. Vertebral body heights are maintained without compression deformity. Minimal anterolisthesis of L4 on L5. Mild disc space narrowing at L1-L2 and minimally involving L2-L3. Multilevel tiny endplate osteophytes. Moderate to severe L4-L5 and L5-S1 facet degeneration Paraspinal soft tissues are unremarkable. DIVISION OF RADIOLOGY [facility] * * *Final Report* * * DATE OF EXAM: May 20 2024 11:28AM WOX 5228 - XR LUMBAR 3V AP/LAT/L5-S1 / PROCEDURE REASON: Left sided sciatica * * * * Physician Interpretation * * * * HISTORY: Left sided sciatica . pain for a year but then worse last night in left posterior hip no inj TECHNIQUE: XR LUMBAR 3V AP/LAT/L5-S1 Laterality: NOT APPLICABLE Number of different views (projections): 3 COMPARISON: None RESULT: Counting reference: Lumbosacral junction. For the purposes of this report, L5-S1 is considered the last lumbar type disc space and L4-L5 is considered the level of the iliac crest. Vertebral body heights are maintained without compression deformity. Minimal anterolisthesis of L4 on L5. Mild disc space narrowing at L1-L2 and minimally involving L2-L3. Multilevel tiny endplate osteophytes. Moderate to severe L4-L5 and L5-S1 facet degeneration Paraspinal soft tissues are unremarkable. IMPRESSION IMPRESSION: Lumbar spine degenerative changes and minimal anterolisthesis of L4 on L5. Table Tender Sludge: PSCB Transcribe Date/Time: May 23 2024 7:13P Dictated by : YECENIA THAYER MD This examination was interpreted and the report reviewed and electronically signed by: YECENIA THAYER MD on May 23 2024 7:15PM [facility] XR Lumbar spine 3 ViewsOrder ed By: [facility] Provider on 05-23-2024 [facility] CNOVon 05-20-2024 CNOV Office Visit (FAMPWS ) VILMA DIAL I ([id number]) 1955 F Date Time Provider Department 05/20/24 10:20 AM [facility] During your visit today, we recorded the following information about you: Pulse Blood pressure Weight 71/minute 142/94 137.4 kg Ron Duenas MD 05/20/2024 4:41 PM Signed Patient presents with: 6 Month Exam HPI: Patient presents today for office visit for follow up. Patient complains of: left hip/knee pain. Duration: started last night Location:goes down leg Has been having some trouble on and off with pain in hips bilateral that goes down legs. Things that improve symptoms :didn't find anything last night Has severe oa with her knees. Pain is more in the left lower back. No numbness or weakness in the leg. No trauma. Is not as bad today. HTN: Patient is compliant with meds Yes Monitors bp at home: Yes. Brings to office. Denies side effects: Yes. Chest pain: No. Dyspnea: No. Edema: stable. Palpitations: No. Syncope: No. Headache: No. Dizziness: No. Follows with [facility] DM: follow with Dr Chino. A1c was 6.3. Seeing rheumatology as well at . Takes serzone for her fibro and anxiety. Doing well. Occasional reflux worse at night. MEDICATIONS: Current Outpatient Medications Medication Sig nefazodone (SERZONE) 200 mg tablet Take 1 tablet by mouth once daily. omeprazole (PRILOSEC) 40 mg capsule Take 1 capsule by mouth every morning. fenofibrate nanocrystallized (TRICOR) 48 mg tablet etodolac (LODINE) 400 mg tablet Take 1 tablet by mouth every 12 hours. PRN losartan (COZAAR) 100 mg tablet TAKE 1 TABLET BY MOUTH EVERY DAY vitamin E mixed 400 unit cap Take by mouth. metFORMIN (GLUCOPHAGE) 1,000 mg tablet Take 1,000 mg by mouth twice daily. sucralfate (CARAFATE) 1 gram tablet Take 1 tablet by mouth before meals and at bedtime. prn (Patient taking differently: Take 1 g by mouth three times a day. prn) dapagliflozin (FARXIGA) 10 mg tablet Take 10 mg by mouth once daily. blood sugar diagnostic (BLOOD GLUCOSE TEST) test strip Test blood sugar(s) bid times daily. Dx: Type 2 DM - Controlled E11.9 Insulin: No glimepiride (AMARYL) 1 mg tablet Taking 1.5 tablets a day Cholecalciferol, Vitamin D3, 25 mcg (1,000 unit) cap Take 1,000 Units by mouth once daily. baclofen (LIORESAL) 10 mg tablet hydrocortisone (ANUSOL-HC) 2.5 % rectal cream by RECTAL route two times a day. PRN Diclofenac Sodium (VOLTAREN) 1 % gel Apply 1 g to affected area twice daily. OMEGA-3 FATTY ACIDS/FISH OIL (OMEGA 3 FISH OIL ORAL) Take by mouth. MULTIVITAMIN TAB Take one(1) tablet daily. No current facility-administered medications for this visit. ALLERGIES: ALLERGIES Allergen Reactions Ciprofloxacin Other: See Comments Change in urine color Januvia [Sitaglipti* GI Upset Jardiance [Empaglif* Intolerance Macrodantin [Nitrof* Ozempic [Semaglutid* Unknown Pravastatin Myalgia Ultram [Tramadol Hc* Swelling Zanaflex [Tizanidin* Unknown Heart racing PAST MEDICAL HISTORY No date: Degenerative disc disease, lumbar No date: Diabetes (HCC) No date: Fibromyalgia No date: GERD (gastroesophageal reflux disease) No date: Hypercholesterolemia No date: Insomnia No date: Lupus (HCC) No date: Osteoarthritis PAST SURGICAL HISTORY No date: ADENOIDECTOMY PRIMARY Comment: Adenoidectomy No date: APPENDECTOMY No date: CHOLECYSTECTOMY Comment: Cholecystectomy 12/24/10: COLONOSCOPY Comment: TVA 02/22/13: COLONOSCOPY Comment: no polyps 04/30/2016: COLONOSCOPY FLX DX W/COLLJ SPEC WHEN PFRMD Comment: Colonoscopy 07/11/2019: COLONOSCOPY FLX DX W/COLLJ SPEC WHEN PFRMD Comment: repeat in 5 years 04/30/2016: ESOPHAGOGASTRODUODENOSC OPY TRANSORAL DIAGNOSTIC Comment: EGD 07/11/2019: ESOPHAGOGASTRODUODENOSC OPY TRANSORAL DIAGNOSTIC Comment: EGD No date: LIG/TRNSXJ FLP TUBE ABDL/VAG APPR UNI/BI Comment: Tubal ligation No date: PAST SURGICAL HISTORY OF Comment: colon polypectomy No date: PAST SURGICAL HISTORY OF Comment: hernia repair No date: TONSILLECTOMY PRIMARY/SECONDARY Comment: Tonsillectomy No date: TOTAL ABDOMINAL HYSTERECT W/WO RMVL TUBE OVARY Comment: Hysterectomy, JESSICA supracervical FAMILY HISTORY Problem Relation Age of Onset Heart Mother Diabetes Mother COPD Mother other (lupus) Mother other (rheumatoid) Mother Heart Sister SD at age 41 Diabetes Sister Aneurysm Sister Abdominal other (aortic stenosis) Sister other (spesis) Sister Social History Tobacco Use Smoking status: Never Passive exposure: Current Smokeless tobacco: Never Vaping Use Vaping Use: Never used Substance Use Topics Alcohol use: No Drug use: No Reviewed current medications, allergies, past medical history, surgical history, family history and social history today. REVIEW OF SYSTEMS All other reviewed and negative other (more content not included)... Normal [facility] XR LUMBAR 3V AP/LAT/L5-S1on 05-20-2024 XR LUMBAR 3V AP/LAT/L5-S1 * * *Final Report* * * DATE OF EXAM: May 20 2024 11:28AM WOX [id number] - XR LUMBAR 3V AP/LAT/L5-S1 / PROCEDURE REASON: Left sided sciatica * * * * Physician Interpretation * * * * HISTORY: Left sided sciatica . pain for a year but then worse last night in left posterior hip no inj TECHNIQUE: XR LUMBAR 3V AP/LAT/L5-S1 Laterality: NOT APPLICABLE Number of different views (projections): 3 COMPARISON: None RESULT: Counting reference: Lumbosacral junction. For the purposes of this report, L5-S1 is considered the last lumbar type disc space and L4-L5 is considered the level of the iliac crest. Vertebral body heights are maintained without compression deformity. Minimal anterolisthesis of L4 on L5. Mild disc space narrowing at L1-L2 and minimally involving L2-L3. Multilevel tiny endplate osteophytes. Moderate to severe L4-L5 and L5-S1 facet degeneration Paraspinal soft tissues are unremarkable. IMPRESSION: Lumbar spine degenerative changes and minimal anterolisthesis of L4 on L5. Table Tender Sludge: ED Transcribe Date/Time: May 23 2024 7:13P Dictated by : YECENIA THAYER MD This examination was interpreted and the report reviewed and electronically signed by: YECENIA THAYER MD on May 23 2024 7:15PM EST [id number] Normal [facility] XR Lumbar spine 3 [facility]son Radiology Study observation (narrative) [facility] LIPID PANEL (EXTERNAL)Ordere d By: Kaelyn Miller on 02-20-2024 Cholesterol [Mass/Vol] 273 mg/dL Abnormal [facility] HDC-L 41 mg/dL - 41 mg/dL [facility] Interpretation and review of laboratory results Abnormal [facility] LDL Chol, calculated 174 Abnormal [facility] Triglyceride [Mass/Vol] 290 mg/dL Abnormal - 14 9 mg/dL [facility] Absolute lymphocyte countOrd ered By: Genie Godinez on 02-17-2024 Lymphocytes Auto (Unsp spec) [#/Vol] 1.79 10*3/uL 0.83-4.51 [facility] Automated lymphocyte count a s percentage of total leukocytesOrdered By: Genie Godinez on 02-17-2024 Lymphocytes/100 WBC Auto (Unsp spec) 29.0 % 19-41 [facility] Basophil percentageOrdered B y: Genie Godinez on 02-17-2024 Basophils/100 WBC (Bld) 0.5 % 0-1 [facility] Bilirubin [Mass/Vol] 0.30 mg/dL 0.20-1.00 [facility] Comment on above: For patients on eltr ombopag therapy, use of Dimension [place] TBIL is not recommended. Chloride [Moles/Vol] 107 mmol/L 98-107 [facility] Eosinophils/100 WBC (Bld) 1.6 % 0-5 [facility] Glucose [Mass/Vol] 173 mg/dL 74-106 [facility] Comment on above: Fasting Glucose resu lt greater than or equal to 126 mg/dL suggests DIABETES MELLITUS per A.D.A. criteria. Hemoglobin (Bld) [Mass/Vol] 14.4 g/dL 12.0-15.0 [facility] Monocytes/100 WBC (Bld) 8.9 % 0-10 [facility] Neutrophils (Bld) [#/Vol] 3.7 10*3/uL 2.0-7.7 [facility] Neutrophils/100 WBC (Bld) 59.7 % 47-70 [facility] Potassium [Moles/Vol] 4.5 mmol/L 3.5-5.1 [facility] Protein [Mass/Vol] 6.5 g/dL 6.4-8.2 [facility] Sodium [Moles/Vol] 140 mmol/L 136-145 [facility] WBC (Bld) [#/Vol] 6.2 10*3/uL 4.4-11.0 [facility] Basophil percentageOrdered B y: Myke Robinson on 02-17-2024 Cholesterol [Mass/Vol] 273 mg/dL [facility] Comment on above: <200 mg/dL Desirable 200-240 mg/dL Borderline >240 mg/dL High Risk Triglyceride [Mass/Vol] 290 mg/dL [facility] Comment on above: The drugs N-Acetylcy steine and Metamizole may falsely depress this assay.Serum Triglycerides Reference Interval Normal <150 mg/dL Borderline high 150 - 199 mg/dL High 200 - 499 mg/dL Very High > or = 500 mg/dL Determination of erythrocyte mean corpuscular volume (MCV)Ordered By: Genie Godinez on 02-17-2024 MCV (RBC) [Entitic vol] 91.7 fL 81-99 [facility] Erythrocyte distribution wid th ratioOrdered By: Genie Godinez on 02-17-2024 Erythrocyte distribution width (RBC) [Ratio] 13.7 % 11.6-14.6 [facility] Erythrocyte distribution wid th standard deviationOrdered By: Genie Godinez on 02-17-2024 Erythrocyte distribution width (RBC) [Entitic vol] 46.1 fL 35.1-43.9 [facility] Erythrocyte sedimentation ra teOrdered By: Genie Godinez on 02-17-2024 ESR (Bld) [Velocity] 5 mm/h 0-30 [facility] Hematocrit Auto (Bld) [Volum e fraction]Ordered By: Genie Godinez on 02-17-2024 Hematocrit (Bld) [Volume fraction] 46.1 % 37-47 [facility] Immature granulocytes/100 WB C Auto (Bld)Ordered By: Genie Godinez on 02-17-2024 Immature granulocytes/100 WBC (Bld) 0.300 % 0.0-0.9 [facility] Comment on above: IG% - Immature Granu locytes (promyelocytes, myelocytes and metamyelocytes) > 1% indicates that a LEFT SHIFT is Present. LIPID PANEL (OUTSIDE)on LDL:HDL Ratio [facility] Non-HDL Cholesterol [facility] TC:HDL Ratio [facility] VLDL Cholesterol 58 [facility] Laboratory - Chemistry and C hemistry - challengeOrdered By: Genie Godinez on 02-17-2024 Albumin/Globulin [Mass ratio] 1.2 {ratio} 0.9-2.4 [facility] ALP [Catalytic activity/Vol] 65 U/L 45-117 [facility] ALT [Catalytic activity/Vol] 21 U/L 13-56 [facility] CO2 [Moles/Vol] 30.0 mmol/L 21.0-32.0 [facility] Globulin (S) [Mass/Vol] 3.0 g/dL 2.2-4.2 [facility] Urea nitrogen/Creatinine [Mass ratio] 31.3 mg/mg 10-20 [facility] Laboratory - Chemistry and C hemistry - challengeOrdered By: Myke Bowers on 02-17-2024 Cholesterol in HDL [Mass/Vol] 41 mg/dL [facility] Comment on above: The drugs N-Acetylcy steine and Metamizole may falsely depress this assay. Reference Range HDL <40 mg/dL Low HDL Cholesterol HDL >or= 60 mg/dL High HDL Cholesterol Cholesterol in LDL [Mass/Vol] 174 mg/dL [facility] Laboratory - CoagulationOrde red By: Myke Bowers on 02-17-2024 INR Coag (Bld) [Relative time] 0.9 {INR} [facility] PT Coag (PPP) [Time] 11.6 s 11.7-14.9 [facility] Laboratory - Hematology and Cell countsOrdered By: Genie Godinez on 02-17-2024 MCH (RBC) [Entitic mass] 28.6 pg 27.0-32.0 [facility] MCHC (RBC) [Mass/Vol] 31.2 g/dL 32-36 [facility] Nucleated RBC/100 WBC (Bld) [Ratio] 0 % 0-5 [facility] Platelet mean volume (Bld) [Entitic vol] 11.0 fL 6.2-12.0 [facility] Platelets (Bld) [#/Vol] 221 10*3/uL 150-450 [facility] No Panel Informationon 02-16 [facility] No Panel InformationOrdered By: Genie Godinez on 02-17-2024 C-Reactive Protein Extended Range 3.77 mg/L 0.0-3.0 [facility] Comment on above: C-Reactive Protein ( CRP) provides useful information for thediagnosis, therapy and monitoring of inflammatory processesand associated diseases. For the evaluation of Relative Riskfor Cardiovascular Disease, a High Sensitivity CRP (HSCRP)should be ordered. Complement C3 165 mg/dL 82-167 [facility] Comment on above: Performed at: [facility] [address] [id number] Director: Vasu Groves PhD, Phone: [phone] Estimated GFR (MDRD) Amer 101 mL/min >60 [facility] Comment on above: GFR Calc Estimated GFR (MDRD) Non-Af Amer 84 mL/min >60 [facility] Comment on above: Non- GFR Calc No Panel InformationOrdered By: Myke Bowers on 02-17-2024 Anti-Nuclear Antibody Screen Negative Negative [facility] Comment on above: Performed at: [facility] [address] [id number] Director: Vasu Groves PhD, Phone: [phone] Centromere B Antibody Not Reportable [facility] SHERRY-1 Antibody Not Reportable [facility] MECHANICAL SHOVEL OPERATOR Antibody Not Reportable [facility] SM Antibody Not Reportable [facility] SS-A/Ro IgG Antibody Not Reportable [facility] SS-B/La IgG Antibody Not Reportable [facility] VLDL Cholesterol 58 mg/dL 5-40 [facility] RBC Auto (Bld) [#/Vol]Ordere d By: Genie Godinez on 02-17-2024 RBC (Bld) [#/Vol] 5.03 10*6/uL 4.2-5.4 [facility] Serum DNA double strand anti body assay (units/volume)Ordered By: Genie Godinez on 02-17-2024 DNA double strand Ab Qn (S) 2 [IU]/mL 0-9 [facility] Comment on above: Negative <5 Equivoca l 5 - 9 Positive >9Performed at: [facility] [id number] Director: Vasu Groves PhD, Phone: [phone] Serum Scl-70 antibody assay (units/volume)Ordered By: Myke Bowers on 02-17-2024 SCL-70 extractable nuclear Ab Qn (S) Not Reportable [facility] Serum or plasma calcium enoch urement (mass/volume)Ordered By: Genie Godinez on 02-17-2024 Calcium [Mass/Vol] 9.1 mg/dL 8.5-10.1 [facility] Serum or plasma complement C 4 measurement (mass/volume)Ordered By: Genie Godinez on 02-17-2024 Complement C4 [Mass/Vol] 16 mg/dL 12-38 [facility] Serum or plasma creatinine m easurement (mass/volume)Ordered By: Genie Godinez on 02-17-2024 Creatinine [Mass/Vol] 0.73 mg/dL 0.55-1.02 [facility] Comment on above: The validity of the calculated GFR & GFRAA in patients over 70 years has not been determined. Clinical correlation is essential. Serum or plasma urea nitroge n measurement (mass/volume)Ordered By: Genie Godinez on 02-17-2024 Urea nitrogen [Mass/Vol] 23 mg/dL 7-18 [facility] Thin prep Papanicolaou smear with manual screeningOrdered By: Genie Godinez on 02-17-2024 Thin prep Papanicolaou smear with manual screening 3.5 g/dL 3.2-5.0 [facility] Thin prep Papanicolaou smear with manual screening 17 U/L 15-37 [facility] Thin prep Papanicolaou smear with manual screening 3 5-15 [facility] Whole blood hemoglobin A1c/t otal hemoglobin ratio (mass fraction)Ordered By: Myke Bowers on 02-17-2024 HbA1c (Bld) [Mass fraction] 6.3 % [facility] Comment on above: Normal < 5.7 % Predi abetic 5.7 - 6.4 % Diabetic >or= 6.5 % Please note range changes. Absolute lymphocyte countOrd ered By: Myke Bowers on 11-23-2023 Lymphocytes Auto (Unsp spec) [#/Vol] 2.12 10*3/uL 0.83-4.51 [facility] Automated lymphocyte count a s percentage of total leukocytesOrdered By: Myke Bowers on 11-23-2023 Lymphocytes/100 WBC Auto (Unsp spec) 32.7 % 19-41 [facility] Basophil percentageOrdered B y: Myke Bowers on 11-23-2023 Basophils/100 WBC (Bld) 0.6 % 0-1 [facility] Bilirubin [Mass/Vol] 0.40 mg/dL 0.20-1.00 [facility] Comment on above: For patients on eltr ombopag therapy, use of Dimension [place] TBIL is not recommended. Chloride [Moles/Vol] 105 mmol/L 98-107 [facility] Cholesterol [Mass/Vol] 301 mg/dL <200 [facility] Comment on above: <200 mg/dL Desirable 200-240 mg/dL Borderline >240 mg/dL High Risk Eosinophils/100 WBC (Bld) 2.2 % 0-5 [facility] Glucose [Mass/Vol] 197 mg/dL 74-106 [facility] Comment on above: Fasting Glucose resu lt greater than or equal to 126 mg/dL suggests DIABETES MELLITUS per A.D.A. criteria. Hemoglobin (Bld) [Mass/Vol] 14.6 g/dL 12.0-15.0 [facility] Monocytes/100 WBC (Bld) 8.2 % 0-10 [facility] Neutrophils (Bld) [#/Vol] 3.6 10*3/uL 2.0-7.7 [facility] Neutrophils/100 WBC (Bld) 56.0 % 47-70 [facility] Potassium [Moles/Vol] 4.0 mmol/L 3.5-5.1 [facility] Protein [Mass/Vol] 7.5 g/dL 6.4-8.2 [facility] Sodium [Moles/Vol] 136 mmol/L 136-145 [facility] Triglyceride [Mass/Vol] 439 mg/dL <199 [facility] Comment on above: The drugs N-Acetylcy steine and Metamizole may falsely depress this assay. TRIGLYCERIDE IS GREATER THAN 400 mg/dL. LDL RESULT IS INVALID AND WILL NOT BE REPORTED.Serum Triglycerides Reference Interval Normal <150 mg/dL Borderline high 150 - 199 mg/dL High 200 - 499 mg/dL Very High > or = 500 mg/dL WBC (Bld) [#/Vol] 6.5 10*3/uL 4.4-11.0 [facility] Determination of erythrocyte mean corpuscular volume (MCV)Ordered By: Myke Bowers on 11-23-2023 MCV (RBC) [Entitic vol] 92.0 fL 81-99 [facility] Erythrocyte distribution wid th ratioOrdered By: Myke Bowers on 11-23-2023 Erythrocyte distribution width (RBC) [Ratio] 14.0 % 11.6-14.6 [facility] Erythrocyte distribution wid th standard deviationOrdered By: Myke Bowers on 11-23-2023 Erythrocyte distribution width (RBC) [Entitic vol] 47.0 fL 35.1-43.9 [facility] Erythrocyte sedimentation ra teOrdered By: Myke Bowers on 11-23-2023 ESR (Bld) [Velocity] 8 mm/h 0-30 [facility] Hematocrit Auto (Bld) [Volum e fraction]Ordered By: Myke Bowers on 11-23-2023 Hematocrit (Bld) [Volume fraction] 47.0 % 37-47 [facility] Immature granulocytes/100 WB C Auto (Bld)Ordered By: Myke Bowers on 11-23-2023 Immature granulocytes/100 WBC (Bld) 0.300 % 0.0-0.9 [facility] Comment on above: IG% - Immature Granu locytes (promyelocytes, myelocytes and metamyelocytes) > 1% indicates that a LEFT SHIFT is Present. Laboratory - Chemistry and C hemistry - challengeOrdered By: Myke Bowers on 11-23-2023 Albumin/Globulin [Mass ratio] 0.9 {ratio} 0.9-2.4 [facility] ALP [Catalytic activity/Vol] 68 U/L 45-117 [facility] ALT [Catalytic activity/Vol] 27 U/L 13-56 [facility] Cholesterol in HDL [Mass/Vol] 45 mg/dL >40 [facility] Comment on above: The drugs N-Acetylcy steine and Metamizole may falsely depress this assay. Reference Range HDL <40 mg/dL Low HDL Cholesterol HDL >or= 60 mg/dL High HDL Cholesterol CO2 [Moles/Vol] 27.0 mmol/L 21.0-32.0 [facility] Globulin (S) [Mass/Vol] 4.0 g/dL 2.2-4.2 [facility] Urea nitrogen/Creatinine [Mass ratio] 30.9 mg/mg 10-20 [facility] Laboratory - CoagulationOrde red By: Myke Bowers on 11-23-2023 PT Coag (PPP) [Time] 12.4 s 11.7-14.9 [facility] Laboratory - Hematology and Cell countsOrdered By: Myke Bowers on 11-23-2023 MCH (RBC) [Entitic mass] 28.6 pg 27.0-32.0 [facility] MCHC (RBC) [Mass/Vol] 31.1 g/dL 32-36 [facility] Nucleated RBC/100 WBC (Bld) [Ratio] 0 % 0-5 [facility] Platelets (Bld) [#/Vol] 225 10*3/uL 150-450 [facility] No Panel InformationOrdered By: Myke Bowers on 11-23-2023 C-Reactive Protein Extended Range 8.05 mg/L 0.0-3.0 [facility] Comment on above: C-Reactive Protein ( CRP) provides useful information for thediagnosis, therapy and monitoring of inflammatory processesand associated diseases. For the evaluation of Relative Riskfor Cardiovascular Disease, a High Sensitivity CRP (HSCRP)should be ordered. Estimated GFR (MDRD) Amer 100 mL/min >60 [facility] Comment on above: GFR Calc Estimated GFR (MDRD) Non-Af Amer 82 mL/min >60 [facility] Comment on above: Non- GFR Calc LDL Cholesterol TNP [facility] Comment on above: Test not performed Tumor Marker Alpha Fetoprotein 4.5 ng/mL 0.0-9.2 [facility] Comment on above: [facility] El ectrochemiluminescence Immunoassay(ECLIA)Values obtained with different assay methods or kits cannotbe used interchangeably. Results cannot be interpreted asabsolute evidence of the presence or absence of malignantdisease.This test is not interpretable in females.Performed at: [facility] [id number] Director: Vasu Groves PhD, Phone: [phone] Vitamin D 25-Hydroxy 38.5 ng/mL [facility] Comment on above: Vitamin D 25(OH) Sta tus Range Deficiency <20 ng/mL (50nmol/L) Insufficiency 20 - 30 ng/mL (50 - 75 nmol/L) Sufficiency 30 - 100 ng/mL (75 - 250 nmol/L) Toxicity >100 ng/mL (>250 nmol/L) VLDL Cholesterol TNP [facility] Comment on above: Test not performed Platelet mean volume Dashawn-Ec ker (Bld) [Entitic vol]Ordered By: Myke Bowers on 11-23-2023 Platelet mean volume (Bld) [Entitic vol] 10.5 fL 6.2-12.0 [facility] Platelet poor plasma interna tional normalized ratio (INR)Ordered By: Myke Bowers on 11-23-2023 INR Coag (PPP) [Relative time] 0.9 {INR} [facility] RBC Auto (Bld) [#/Vol]Ordere d By: Myke Bowers on 11-23-2023 RBC (Bld) [#/Vol] 5.11 10*6/uL 4.2-5.4 [facility] Serum or plasma calcium enoch urement (mass/volume)Ordered By: Myke Bowers on 11-23-2023 Calcium [Mass/Vol] 9.3 mg/dL 8.5-10.1 [facility] Serum or plasma creatinine m easurement (mass/volume)Ordered By: Myke Bowers on 11-23-2023 Creatinine [Mass/Vol] 0.74 mg/dL 0.55-1.02 [facility] Comment on above: The validity of the calculated GFR & GFRAA in patients over 70 years has not been determined. Clinical correlation is essential. Serum or plasma urea nitroge n measurement (mass/volume)Ordered By: Myke Bowers on 11-23-2023 Urea nitrogen [Mass/Vol] 23 mg/dL 7-18 [facility] Thin prep Papanicolaou smear with manual screeningOrdered By: Myke Bowers on 11-23-2023 Thin prep Papanicolaou smear with manual screening 3.5 g/dL 3.2-5.0 [facility] Thin prep Papanicolaou smear with manual screening 21 U/L 15-37 [facility] Thin prep Papanicolaou smear with manual screening 4 5-15 [facility] Whole blood hemoglobin A1c/t otal hemoglobin ratio (mass fraction)Ordered By: Myke Bowers on 11-23-2023 HbA1c (Bld) [Mass fraction] 6.9 % 3.8-5.6 [facility] Comment on above: Normal < 5.7 % Predi abetic 5.7 - 6.4 % Diabetic >or= 6.5 % Please note range changes. XR CHEST 2V FRONTAL/LATon [facility] XR Chest PA and Lateralon Addendum by Provider , [facility] Ernest on 09/24/2023 9:39 AM EST * * *Final Report* * * DATE OF EXAM: Sep 24 2023 9:35AM WOX [id number] - XR CHEST 2V FRONTAL/LAT / PROCEDURE REASON: multiple diagnoses * * * * Physician Interpretation * * * * EXAMINATION: CHEST RADIOGRAPH (2 VIEW FRONTAL & LATERAL) CLINICAL HISTORY: Acute cough URI, acute MQ: [id number] EXAM DATE/TIME: 09/24/2023 9:35 AM COMPARISON: Chest radiograph 03/12/2022 RESULT: Lines, tubes, and devices: None. Lungs and pleura: No consolidation. No lung mass. No pleural effusion. No pneumothorax. Cardiomediastinal silhouette: Normal cardiomediastinal silhouette. Bones and soft tissues: Unremarkable. IMPRESSION: No acute radiographic abnormality. Table Tender Sludge: PSCB Transcribe Date/Time: Sep 24 2023 9:37A Dictated by : JUAN DIEGO JOHNSON MD This examination was interpreted and the report reviewed and electronically signed by: JUAN DIEGO JOHNSON MD on Sep 24 2023 9:39AM EST [facility] Radiology Study observation (narrative) Rosy cortez [facility] XR Chest PA and LateralOrder ed By: Ccf Provider on 09-24-2023 [facility] Basic metabolic 2000 panelon 09-18-2023 Anion gap [Moles/Vol] 12 mmol/L 9 - 18 mmol/L [facility] Calcium [Mass/Vol] 10.2 mg/dL 8.5 - 10. 2 mg/dL [facility] Chloride [Moles/Vol] 102 mmol/L 97 - 10 5 mmol/L [facility] CO2 [Moles/Vol] 27 mmol/L 22 - 30 mmol/L [facility] Creatinine [Mass/Vol] 0.79 mg/dL 0.58 - 0.96 mg/dL [facility] Estimated Glomerular Filtration Rate 82 mL/min/1.73m >=60 mL/min/1.7 3m [facility] Glucose [Mass/Vol] 136 mg/dL High 74 - 99 mg/dL [facility] Potassium [Moles/Vol] 4.2 mmol/L 3.7 - 5.1 mmol/L [facility] Sodium [Moles/Vol] 141 mmol/L 136 - 144 mmol/L [facility] Urea nitrogen [Mass/Vol] 16 mg/dL 7 - 21 mg/dL [facility] C reactive proteinon 023 CRP [Mass/Vol] 0.54 mg/dL Normal <1.[address] [facility] Comment on above: Performed By: #### 1 988-5 #### BETHANIE Kirby ([id number]) [facility] ([facility]) [id number] [place] [address] CBC W Auto Differential pane l (Bld)on 08-20-2023 Basophils (Bld) [#/Vol] 0.03 x10*3/uL Normal 0.00-0.[address] [facility] Comment on above: Performed By: #### 5 7021-8 #### BETHANIE Kirby ([id number]) [facility] ([facility]) [id number] [place] [address]807 Basophils/100 WBC (Bld) 0.4 % Normal 0.0-2.0 [facility] Comment on above: Performed By: #### 5 7021-8 #### BETHANIE Kirby ([id number]) [facility] ([facility]) [id number] [place] [address]58 Eosinophils (Bld) [#/Vol] 0.10 x10*3/uL Normal 0.00-0.[address] [facility] Comment on above: Performed By: #### 5 7021-8 #### BETHANIE Kirby ([id number]) [facility] ([facility]) [address] [place] [address] Eosinophils/100 WBC (Bld) 1.4 % Normal 0.0-6.[address] [facility] Comment on above: Performed By: #### 5 7021-8 #### BETHANIE Kirby ([id number]) [facility] ([facility]) [id number] [place] [address] Erythrocyte distribution width (RBC) [Ratio] 14.3 % Normal 11.5-14.[address] [facility] Comment on above: Performed By: #### 5 7021-8 #### BETHANIE Kirby ([id number]) [facility] ([facility]) [address] [place] [address] Hematocrit (Bld) [Volume fraction] 46.3 % High 36.0-46.[address] [facility] Comment on above: Performed By: #### 5 7021-8 #### BETHANIE MILES L ([id number]) [facility] ([facility]) [address] [place] [address]226 Hemoglobin (Bld) [Mass/Vol] 14.7 g/dL Normal 12.0-16.[address] [facility] Comment on above: Performed By: #### 5 7021-8 #### BETHANIE Kirby ([id number]) [facility] ([facility]) [id number] [place] [address]10 Immature granulocytes (Bld) [#/Vol] 0.05 x10*3/uL Normal 0.00-0.[address] [facility] Comment on above: Performed By: #### 5 7021-8 #### BETHANIE Kirby ([id number]) [facility] ([facility]) [id number] [place] [address]75 Immature granulocytes/100 WBC (Bld) 0.7 % Normal 0.0-0.[address] [facility] Comment on above: Result Comment: Lali ture Granulocyte Count (IG) includes promyelocytes, myelocytes and metamyelocytes but does not include bands. Percent differential counts (%) should be interpreted in the context of the absolute cell counts (cells/UL). Performed By: #### 5 7021-8 #### BETHANIE Kirby ([id number]) [facility] ([facility]) [address] [place] [address] 47333 Lymphocytes (Bld) [#/Vol] 1.96 x10*3/uL Normal 1.20-4.[address] [facility] Comment on above: Performed By: #### 5 7021-8 #### BETHANIE Kirby ([id number]) [facility] ([facility]) [address] [place] [address] 04815 Lymphocytes/100 WBC (Bld) 28.4 % Normal 13.0-44.[address] [facility] Comment on above: Performed By: #### 5 7021-8 #### BETHANIE Kirby ([id number]) [facility] ([facility]) [id number] [place] [address] 82832 MCH (RBC) [Entitic mass] 29.6 pg Normal 26.0-34.[address] [facility] Comment on above: Performed By: #### 5 7021-8 #### BETHANIE Kirby ([id number]) [facility] ([facility]) [id number] [place] [address] 56070 MCHC (RBC) [Mass/Vol] 31.7 g/dL Low 32.0-36.0 [facility] Comment on above: Performed By: #### 5 7021-8 #### BETHANIE Kirby ([id number]) [facility] ([facility]) [id number] [place] [address] 49035 MCV (RBC) [Entitic vol] 93 fL Normal 80-100 [facility] Comment on above: Performed By: #### 5 7021-8 #### BETHANIE Kirby ([id number]) [facility] [facility] ([facility]) [id number] [place] [address] 92435 Monocytes (Bld) [#/Vol] 0.50 x10*3/uL Normal 0.10-1.[address] [facility] Comment on above: Performed By: #### 5 7021-8 #### BETHANIE Kirby ([id number]) [facility] ([facility]) [address] [place] [address] 56793 Monocytes/100 WBC (Bld) 7.2 % Normal 2.0-10.0 U [facility] Comment on above: Performed By: #### 5 7021-8 #### BETHANIE Kirby ([id number]) [facility] ([facility]) [address] [place] [address] 96225 Neutrophils (Bld) [#/Vol] 4.26 x10*3/uL Normal 1.20-7.[address] [facility] Comment on above: Result Comment: Perc ent differential counts (%) should be interpreted in the context of the absolute cell counts (cells/uL). Performed By: #### 5 7021-8 #### BETHANIE Kirby ([id number]) [facility] ([facility]) [address] [place] [address] Neutrophils/100 WBC (Bld) 61.9 % Normal 40.0-80.[address] [facility] Comment on above: Performed By: #### 5 7021-8 #### BETHANIE Kirby ([id number]) [facility] ([facility]) [address] [place] [address] 71053 Nucleated RBC/100 WBC (Bld) [Ratio] 0.0 /100 WBCs Normal 0.0-0.[address] [facility] Comment on above: Performed By: #### 5 7021-8 #### BETHANIE Kirby ([id number]) [facility] ([facility]) [address] [place] [address] 54151 Platelets (Bld) [#/Vol] 253 x10*3/uL Normal 150-[address] [facility] Comment on above: Performed By: #### 5 7021-8 #### BETHANIE Kirby ([id number]) [facility] ([facility]) [address] [place] [address] 98759 RBC (Bld) [#/Vol] 4.96 x10*6/uL Normal 4.00-5.20 [facility] Comment on above: Performed By: #### 5 7021-8 #### BETHANIE Kirby ([id number]) [facility] ([facility]) [address] [place] [address] 43555 WBC (Bld) [#/Vol] 6.9 x10*3/uL Normal 4.4-11.3 [facility] Comment on above: Performed By: #### 5 7021-8 #### BETHANIE Kirby ([id number]) [facility] ([facility]) [id number] [place] [address] 89879 Complement C3on 08-20-2023 Complement C3 [Mass/Vol] 181 mg/dL Normal 87-[address] [facility] Comment on above: Performed By: #### 4 485-9 #### BETHANIE Kirby ([id number]) [facility] ([facility]) [id number] [place] [address] 10319 Complement C4on 08-20-2023 Complement C4 [Mass/Vol] 19 mg/dL Normal 10-[address] [facility] Comment on above: Performed By: #### 4 498-2 #### BETHANIE Kirby ([id number]) [facility] ([facility]) [id number] [place] [address] 81025 Comprehensive metabolic 2000 panelon 08-20-2023 Albumin BCP dye [Mass/Vol] 4.1 g/dL Normal 3.4-5.[address] [facility] Comment on above: Performed By: #### 2 4323-8 #### BETHANIE Kirby ([id number]) [facility] ([facility]) [address] [place] [address] ALP [Catalytic activity/Vol] 81 U/L Normal 33-[address] [facility] Comment on above: Performed By: #### 2 4323-8 #### BETHANIE Kirby ([id number]) [facility] ([facility]) [address] [place] [address] ALT With P-5'-P [Catalytic activity/Vol] 25 U/L Normal 7-[address] [facility] Comment on above: Result Comment: Angelica ents treated with Sulfasalazine may generate falsely decreased results for ALT. Performed By: #### 2 4323-8 #### BETHANIE Kirby ([id number]) [facility] ([facility]) [address] [place] [address] 29960 Anion gap [Moles/Vol] 19 mmol/L Normal 10-20 [facility] Comment on above: Performed By: #### 2 4323-8 #### BETHANIE Kirby ([id number]) [facility] ([facility]) [address] [place] [address] 82341 AST With P-5'-P [Catalytic activity/Vol] 19 U/L Normal 9-[address] [facility] Comment on above: Performed By: #### 2 4323-8 #### BETHANIE Kirby ([id number]) [facility] ([facility]) [address] [place] [address] Bilirubin [Mass/Vol] 0.4 mg/dL Normal 0.0-1.2 [facility] Comment on above: Performed By: #### 2 4323-8 #### BETHANIE Kirby ([id number]) [facility] ([facility]) [address] [place] [address] Calcium [Mass/Vol] 9.3 mg/dL Normal 8.6-10.6 [facility] Comment on above: Performed By: #### 2 4323-8 #### BETHANIE Kirby ([id number]) [facility] ([facility]) [address] [place] [address] Chloride [Moles/Vol] 102 mmol/L Normal 98-107 [facility] Comment on above: Performed By: #### 2 4323-8 #### BETHANIE Kirby ([id number]) [facility] ([facility]) [address] [place] [address] CO2 [Moles/Vol] 23 mmol/L Normal 21-32 [facility] Comment on above: Performed By: #### 2 4323-8 #### BETHANIE Kirby ([id number]) [facility] ([facility]) [address] [place] [address] 87007 Creatinine [Mass/Vol] 0.74 mg/dL Normal 0.50-1.05 [facility] Comment on above: Performed By: #### 2 4323-8 #### BETHANIE Kirby ([id number]) [facility] ([facility]) [address] [place] [address] GFR/1.73 sq M.predicted MDRD (S/P/Bld) [Vol rate/Area] 89 mL/min/1.73m*2 Normal >[address] [facility] Comment on above: Result Comment: Calc ulations of estimated GFR are performed using the 2020 CKD-EPI Study Refit equation without the race variable for the IDMS-Traceable creatinine methods. https://jasn.asnjournals.org/content/early//ASN.2020 532076 Performed By: #### 2 4323-8 #### BETHANIE Kirby ([id number]) [facility] ([facility]) [address] [place] [address] Glucose [Mass/Vol] 267 mg/dL High 74-99 [facility] Comment on above: Performed By: #### 2 4323-8 #### BETHANIE Kirby ([id number]) [facility] ([facility]) [address] [place] [address] 86745 Potassium [Moles/Vol] 3.9 mmol/L Normal 3.5-5.3 [facility] Comment on above: Performed By: #### 2 4323-8 #### BETHANIE Kirby ([id number]) [facility] ([facility]) [address] [place] [address] 32789 Protein [Mass/Vol] 6.9 g/dL Normal 6.4-8.2 [facility] Comment on above: Performed By: #### 2 4323-8 #### BETHANIE Kirby ([id number]) [facility] ([facility]) [address] [place] [address] 65272 Sodium [Moles/Vol] 140 mmol/L Normal 136-145 [facility] Comment on above: Performed By: #### 2 4323-8 #### BETHANIE Kirby ([id number]) [facility] ([facility]) [address] [place] [address] 62642 Urea nitrogen [Mass/Vol] 18 mg/dL Normal 6-[address] [facility] Comment on above: Performed By: #### 2 4323-8 #### BETHANIE Kirby ([id number]) [facility] ([facility]) [address] [place] [address] 22597 DNA double strand Abon 08-20 DNA double strand Ab Qn (S) [IU]/mL Normal <5.[address] [facility] Comment on above: Result Comment: NEGA TIVE: <= 4 IU/ML EQUIVOCAL: 5- 9 IU/ML POSITIVE: >=10 IU/ML Performed By: #### 5 130-0 #### BETHANIE Kirby ([id number]) [facility] ([facility]) [address] [place] [address] 67090 ESR Westergren method (Bld) [Velocity]on 08-20-2023 ESR (Bld) [Velocity] 33 mm/h High 0-30 [facility] Comment on above: Performed By: #### 4 537-7 #### BETHANIE Kirby ([id number]) [facility] ([facility]) [address] [place] [address] CIARAN SCREENINGon 08-17-2023 [facility] CBC AND DIFFERENTIALon 02-25 % AUTOMATED IMMATURE GRAN 0.4 % Normal 0.0 - 0.9 [facility] Comment on above: Result Comment: Lali ture Granulocyte Count (IG) includes promyelocytes, myelocytes and metamyelocytes but does not include bands. Percent differential counts (%) should be interpreted in the context of the absolute cell counts (cells/L). Performed By: #### C 4 #### [facility] [address] [place] [address] Basophils (Bld) [#/Vol] 0.04 10*3/uL Normal 0.00 - 0.10 [facility] Comment on above: Performed By: #### C 4 #### [facility] [address] [place] [address] Basophils/100 WBC (Bld) 0.6 % Normal 0.0 - 2.0 U [facility]3] Comment on above: Performed By: #### C 4 #### [facility] [address] [place] [address] Eosinophils (Bld) [#/Vol] 0.10 10*3/uL Normal 0.00 - 0.70 [facility] Comment on above: Performed By: #### C 4 #### [facility] [address] [place] [address] Eosinophils/100 WBC (Bld) 1.4 % Normal 0.0 - 6.0 [facility] Comment on above: Performed By: #### C 4 #### [facility] [address] [place] [address] Erythrocyte distribution width (RBC) [Ratio] 13.8 % Normal 11.5 - 14.5 [facility] Comment on above: Performed By: #### C 4 #### [facility] [address] [place] [address] Hematocrit (Bld) [Volume fraction] 46.0 % Normal 36.0 - 46.0 [facility] Comment on above: Performed By: #### C 4 #### [facility] [address] [place] [address] Hemoglobin (Bld) [Mass/Vol] 14.5 g/dL Normal 12.0 - 16.0 [facility] Comment on above: Performed By: #### C 4 #### [facility] [address] [place] [address] Lymphocytes (Bld) [#/Vol] 2.30 10*3/uL Normal 1.20 - 4.80 [facility] Comment on above: Performed By: #### C 4 #### [facility] [address] [place] [address] Lymphocytes/100 WBC (Bld) 33.3 % Normal 13.0 - 44.0 [facility] Comment on above: Performed By: #### C 4 #### [facility] [address] [place] [address] MCHC (RBC) [Mass/Vol] 31.5 g/dL Low 32.0 - 36.0 [facility] Comment on above: Performed By: #### C 4 #### [facility] [address] [place] [address] MCV (RBC) [Entitic vol] 91 fL Normal 80 - 100 [facility] Comment on above: Performed By: #### C 4 #### [facility] [address] [place] [address] Monocytes (Bld) [#/Vol] 0.57 10*3/uL Normal 0.10 - 1.00 [facility] Comment on above: Performed By: #### C 4 #### [facility] [address] [place] [address] Monocytes/100 WBC (Bld) 8.2 % Normal 2.0 - 10.0 [facility] Comment on above: Performed By: #### C 4 #### [facility] [address] [place] [address] Neutrophils (Bld) [#/Vol] 3.87 10*3/uL Normal 1.20 - 7.70 [facility] Comment on above: Performed By: #### C 4 #### [facility] [address] [place] [address] Neutrophils/100 WBC (Bld) 56.1 % Normal 40.0 - 80.0 [facility] Comment on above: Performed By: #### C 4 #### [facility] [address] [place] [address] NUCLEATED RBC 0.0 /100 WBC Normal 0.0-0.0 [facility] Comment on above: Performed By: #### C 4 #### [facility] [address] [place] [address] Platelets (Bld) [#/Vol] 216 10*3/uL Normal 150 - 450 [facility] Comment on above: Performed By: #### C 4 #### [facility] [address] [place] [address] RBC 5.04 x10E12/L Normal 4.00 - 5.20 [facility] Comment on above: Performed By: #### C 4 #### [facility] [address] [place] [address] WBC (Bld) [#/Vol] 6.9 10*3/uL Normal 4.4 - 11.3 [facility] Comment on above: Performed By: #### C 4 #### [facility] [address] [place] [address] Complete Blood Count + Diffe rentialon 02-25-2023 Basophils/100 WBC (Bld) 0.6 % 0.0 - 2.0 M [employer] [facility] Work Phone: Erythrocyte distribution width (RBC) [Ratio] 13.8 % See Below [employer] [facility] Work Phone: Comment on above: Reference Range: 11. 5 - 14.5 Hematocrit (Bld) [Volume fraction] 46.0 % See Below [facility] Work Phone: Comment on above: Reference Range: 36. 0 - 46.0 Hemoglobin (Bld) [Mass/Vol] 14.5 g/dL See Below [facility] Work Phone: Comment on above: Reference Range: 12. 0 - 16.0 Lymphocytes/100 WBC (Bld) 33.3 % See Below [facility] Work Phone: Comment on above: Reference Range: 13. 0 - 44.0 MCHC (RBC) [Mass/Vol] 31.5 g/dL below low threshold See Below [facility] Work Phone: Comment on above: Reference Range: 32. 0 - 36.0 MCV (RBC) [Entitic vol] 91 fL 80 - 100 [facility] Work Phone: Monocytes/100 WBC (Bld) 8.2 % 2.0 - 10.0 M [facility] Work Phone: Neutrophils/100 WBC (Bld) 56.1 % See Below [facility] Work Phone: Comment on above: Reference Range: 40. 0 - 80.0 Platelets (Bld) [#/Vol] 216 10*3/uL 150 - 450 [facility] Work Phone: RBC (Bld) [#/Vol] 5.04 {x10E12/L} See Below [facility] Work Phone: Comment on above: Reference Range: 4.0 0 - 5.20 WBC (Bld) [#/Vol] 6.9 10*3/uL 4.4 - 11.3 [facility] Work Phone: Complete Blood Count + Differential 0.04 {x10E9/L} See Below [facility] Work Phone: Comment on above: Reference Range: 0.0 0 - 0.10 Complete Blood Count + Differential 0.10 {x10E9/L} See Below [facility] Work Phone: Comment on above: Reference Range: 0.0 0 - 0.70 Complete Blood Count + Differential 0.57 {x10E9/L} See Below [facility] Work Phone: Comment on above: Reference Range: 0.1 0 - 1.00 Complete Blood Count + Differential 2.30 {x10E9/L} See Below [facility] Work Phone: Comment on above: Reference Range: 1.2 0 - 4.80 Complete Blood Count + Differential 3.87 {x10E9/L} See Below [facility] Work Phone: Comment on above: Reference Range: 1.2 0 - 7.70 Complete Blood Count + Differential 1.4 % 0.0 - 6.0 [facility] Work Phone: Complete Blood Count + Differential 0.4 % 0.0 - 0.9 [facility] Work Phone: Comment on above: Immature Granulocyte Count (IG) includes promyelocytes, myelocytes and metamyelocytes but does not include bands. Percent differential counts (%) should be interpreted in the context of the absolute cell counts (cells/L). Complete Blood Count + Differential 0.0 {/100_WBC} 0.0-0.0 [facility] Work Phone: SEDIMENTATION RATE, ERYTHROC YTEon 02-25-2023 SEDIMENTATION RATE, ERYTHROCYTE 19 mm/h Normal 0 - 30 [facility] Comment on above: Performed By: #### E SRWS #### [facility] [address] [place] [address] Sedimentation Rate, Erythroc yteon 02-25-2023 ESR (Bld) [Velocity] 19 mm/h 0 - 30 [facility] Work Phone: ANTI-DNA [DS]on 02-24-2023 ANTI-DNA [DS] <1.0 Normal [facility] Comment on above: Result Comment: REF VALUES NEGATIVE: <= 4 IU/ML EQUIVOCAL: 5- 9 IU/ML POSITIVE: >=10 IU/ML Performed By: #### D NADS #### [facility] [address] [place] [address] C-REACTIVE PROTEINon 023 C-REACTIVE PROTEIN 0.40 mg/dL Normal [facility] Comment on above: Result Comment: REF VALUE < 1.00 Performed By: #### C RP #### [facility] [address] [place] [address] C3 COMPLEMENTon 02-20-2023 C3 COMPLEMENT 191 mg/dL Normal 87 - 200 [facility] Comment on above: Performed By: #### C 4 #### [facility] [address] [place] [address] C4 COMPLEMENTon 02-20-2023 C4 COMPLEMENT 20 mg/dL Normal 10 - 50 [facility] Comment on above: Performed By: #### C 4 #### [facility] [address] [place] [address] CBC AND DIFFERENTIALon 02-20 % AUTOMATED IMMATURE GRAN Canceled Normal [facility] Comment on above: Order Comment: TEST CBC AND DIFFERENTIAL WAS CANCELLED, 02/20/2023 01:50 SPECIMEN CLOTTED.PLEASE RESUBMIT. Result Comment: Lali ture Granulocyte Count (IG) includes promyelocytes, myelocytes and metamyelocytes but does not include bands. Percent differential counts (%) should be interpreted in the context of the absolute cell counts (cells/L). Performed By: #### C BCDF #### [facility] [address] [place] [address] % BASOPHIL Canceled Normal [facility] Comment on above: Order Comment: TEST CBC AND DIFFERENTIAL WAS CANCELLED, 02/20/2023 01:50 SPECIMEN CLOTTED.PLEASE RESUBMIT. Performed By: #### C BCDF #### [facility] [address] [place] [address] % EOSINOPHIL Canceled Normal [facility] Comment on above: Order Comment: TEST CBC AND DIFFERENTIAL WAS CANCELLED, 02/20/2023 01:50 SPECIMEN CLOTTED.PLEASE RESUBMIT. Performed By: #### C BCDF #### [facility] [address] [place] [address] % LYMPHOCYTE Canceled Normal [facility] Comment on above: Order Comment: TEST CBC AND DIFFERENTIAL WAS CANCELLED, 02/20/2023 01:50 SPECIMEN CLOTTED.PLEASE RESUBMIT. Performed By: #### C BCDF #### [facility] [address] [place] [address] % MONOCYTE Canceled Normal [facility] Comment on above: Order Comment: TEST CBC AND DIFFERENTIAL WAS CANCELLED, 02/20/2023 01:50 SPECIMEN CLOTTED.PLEASE RESUBMIT. Performed By: #### C BCDF #### [facility] [address] [place] [address] % NEUTROPHIL Canceled Normal [facility] Comment on above: Order Comment: TEST CBC AND DIFFERENTIAL WAS CANCELLED, 02/20/2023 01:50 SPECIMEN CLOTTED.PLEASE RESUBMIT. Performed By: #### C BCDF #### [facility] [address] [place] [address] BASOPHIL Canceled Normal [facility] Comment on above: Order Comment: TEST CBC AND DIFFERENTIAL WAS CANCELLED, 02/20/2023 01:50 SPECIMEN CLOTTED.PLEASE RESUBMIT. Performed By: #### C BCDF #### [facility] [address] [place] [address] DIFFERENTIAL Canceled Normal [facility] Comment on above: Order Comment: TEST CBC AND DIFFERENTIAL WAS CANCELLED, 02/20/2023 01:50 SPECIMEN CLOTTED.PLEASE RESUBMIT. Performed By: #### C BCDF #### [facility] [address] [place] [address] EOSINOPHIL Canceled Normal [facility] Comment on above: Order Comment: TEST CBC AND DIFFERENTIAL WAS CANCELLED, 02/20/2023 01:50 SPECIMEN CLOTTED.PLEASE RESUBMIT. Performed By: #### C BCDF #### [facility] [address] [place] [address] HCT Canceled Normal [facility] Comment on above: Order Comment: TEST CBC AND DIFFERENTIAL WAS CANCELLED, 02/20/2023 01:50 SPECIMEN CLOTTED.PLEASE RESUBMIT. Performed By: #### C BCDF #### [facility] [address] [place] [address] HGB Canceled Normal [facility] Comment on above: Order Comment: TEST CBC AND DIFFERENTIAL WAS CANCELLED, 02/20/2023 01:50 SPECIMEN CLOTTED.PLEASE RESUBMIT. Performed By: #### C BCDF #### [facility] [address] [place] [address] LYMPHOCYTE Canceled Normal [facility] Comment on above: Order Comment: TEST CBC AND DIFFERENTIAL WAS CANCELLED, 02/20/2023 01:50 SPECIMEN CLOTTED.PLEASE RESUBMIT. Performed By: #### C BCDF #### [facility] [address] [place] [id number] MCHC Canceled Normal [facility] Comment on above: Order Comment: TEST CBC AND DIFFERENTIAL WAS CANCELLED, 02/20/2023 01:50 SPECIMEN CLOTTED.PLEASE RESUBMIT. Performed By: #### C BCDF #### [facility] [address] [place] [address] MCV Canceled Normal [facility] Comment on above: Order Comment: TEST CBC AND DIFFERENTIAL WAS CANCELLED, 02/20/2023 01:50 SPECIMEN CLOTTED.PLEASE RESUBMIT. Performed By: #### C BCDF #### [facility] [address] [place] [address] MONOCYTE Canceled Normal [facility] Comment on above: Order Comment: TEST CBC AND DIFFERENTIAL WAS CANCELLED, 02/20/2023 01:50 SPECIMEN CLOTTED.PLEASE RESUBMIT. Performed By: #### C BCDF #### [facility] [address] [place] [address] NEUTROPHIL Canceled Normal [facility] Comment on above: Order Comment: TEST CBC AND DIFFERENTIAL WAS CANCELLED, 02/20/2023 01:50 SPECIMEN CLOTTED.PLEASE RESUBMIT. Performed By: #### C BCDF #### [facility] [address] [place] [address] NUCLEATED RBC Canceled Normal [facility] Comment on above: Order Comment: TEST CBC AND DIFFERENTIAL WAS CANCELLED, 02/20/2023 01:50 SPECIMEN CLOTTED.PLEASE RESUBMIT. Performed By: #### C BCDF #### [facility] [address] [place] [address] PLT Canceled Normal [facility] Comment on above: Order Comment: TEST CBC AND DIFFERENTIAL WAS CANCELLED, 02/20/2023 01:50 SPECIMEN CLOTTED.PLEASE RESUBMIT. Performed By: #### C BCDF #### [facility] [address] [place] [address] RBC Canceled Normal [facility] Comment on above: Order Comment: TEST CBC AND DIFFERENTIAL WAS CANCELLED, 02/20/2023 01:50 SPECIMEN CLOTTED.PLEASE RESUBMIT. Performed By: #### C BCDF #### [place] [address] [place] [address] RDW-CV Canceled Normal [facility] Comment on above: Order Comment: TEST CBC AND DIFFERENTIAL WAS CANCELLED, 02/20/2023 01:50 SPECIMEN CLOTTED.PLEASE RESUBMIT. Performed By: #### C BCDF #### [facility] [address] [place] [address] WBC Canceled Normal [facility] Comment on above: Order Comment: TEST CBC AND DIFFERENTIAL WAS CANCELLED, 02/20/2023 01:50 SPECIMEN CLOTTED.PLEASE RESUBMIT. Performed By: #### C BCDF #### [facility] [address] [place] [address] COMPREHENSIVE PANELon 2022 Albumin [Mass/Vol] 4.2 g/dL Normal 3.4 - 5.0 [facility] Comment on above: Performed By: #### C 4 #### [facility] [address] [place] [address] ALP [Catalytic activity/Vol] 59 U/L Normal 33 - 136 [facility] Comment on above: Performed By: #### C 4 #### [facility] [address] [place] [address] ALT [Catalytic activity/Vol] 26 U/L Normal 7 - 45 [facility] Comment on above: Result Comment: Angelica ents treated with Sulfasalazine may generate falsely decreased results for ALT. Performed By: #### C 4 #### [place] [address] [place] [address] Anion gap [Moles/Vol] 16 mmol/L Normal 10 - 20 [facility] Comment on above: Performed By: #### C 4 #### [facility] [address] [place] [address] AST [Catalytic activity/Vol] 28 U/L Normal 9 - 39 [facility] Comment on above: Result Comment: MILD HEMOLYSIS DETECTED. The result may be falsely elevated due to hemolysis or other interferents. Clinical correlation is recommended. Repeat testing may be considered. Performed By: #### C 4 #### [facility] [address] [place] [address] Bilirubin [Mass/Vol] 0.4 mg/dL Normal 0.0 - 1.2 [facility] Comment on above: Performed By: #### C 4 #### [facility] [address] [place] [address] Calcium [Mass/Vol] 9.6 mg/dL Normal 8.6 - 10.6 [facility] Comment on above: Performed By: #### C 4 #### [facility] [facility] [address] [place] [address] Chloride [Moles/Vol] 104 mmol/L Normal 98 - 107 [facility] Comment on above: Performed By: #### C 4 #### [facility] [address] [place] [address] Creatinine [Mass/Vol] 0.72 mg/dL Normal 0.50 - 1.05 [facility] Comment on above: Performed By: #### C 4 #### [facility] [address] [place] [address] eGFR FEMALE >90 Normal >90 [facility] Comment on above: Result Comment: CALC ULATIONS OF ESTIMATED GFR ARE PERFORMED USING THE 2020 CKD-EPI STUDY REFIT EQUATION WITHOUT THE RACE VARIABLE FOR THE IDMS-TRACEABLE CREATININE METHODS. https://jasn.asnjournals.org/content//09/22/ASN.2020 814423 Performed By: #### C 4 #### [facility] [address] [place] [address] Glucose [Mass/Vol] 267 mg/dL High 74 - 99 [facility] Comment on above: Performed By: #### C 4 #### [facility] [address] [place] [address] HCO3 (Bld) [Moles/Vol] 24 mmol/L Normal 21 - 32 [facility] Comment on above: Performed By: #### C 4 #### [facility] [address] [place] [address] Potassium [Moles/Vol] 4.3 mmol/L Normal 3.5 - 5.3 [facility] Comment on above: Result Comment: MILD HEMOLYSIS DETECTED. The result may be falsely elevated due to hemolysis or other interferents. Clinical correlation is recommended. Repeat testing may be considered. Performed By: #### C 4 #### [facility] [address] [place] [address] Protein [Mass/Vol] 7.1 g/dL Normal 6.4 - 8.2 [facility] Comment on above: Performed By: #### C 4 #### [facility] [address] [place] [address] Sodium [Moles/Vol] 140 mmol/L Normal 136 - 145 [facility] Comment on above: Performed By: #### C 4 #### [facility] [address] [place] [address] Urea nitrogen [Mass/Vol] 17 mg/dL Normal 6 - 23 [facility] Comment on above: Performed By: #### C 4 #### [facility] [address] [place] [address] SEDIMENTATION RATE, ERYTHROC YTEon 02-20-2023 SEDIMENTATION RATE, ERYTHROCYTE Canceled Normal 0 - 30 [facility] Comment on above: Order Comment: TEST SEDIMENTATION RATE, ERYTHROCYTE WAS CANCELLED, 02/20/2023 01:50 SPECIMEN CLOTTED.PLEASE RESUBMIT. Result Comment: This is a corrected result. Previous value was 7, verified at 02/20/2023 01:19 Performed By: #### E SRWS #### [facility] [address] [place] [address] Anti-dsDNA (Double Stranded) Antibodieson 02-19-2023 DNA double strand Ab Qn (S) [IU]/mL [facility] Work Phone: Comment on above: REF VALUESNEGATIVE: <= 4 IU/MLEQUIVOCAL: 5- 9 IU/MLPOSITIVE: >=10 IU/ML C Reactive Protein, Serumon 02-19-2023 CRP [Mass/Vol] 0.40 mg/dL [facility] Work Phone: Comment on above: REF VALUE< 1.00 C3 Complement, Serumon 02-19 Complement C3 [Mass/Vol] 191 mg/dL 87 - 200 [facility] Work Phone: C4 Complement, Serumon 02-19 Complement C4 [Mass/Vol] 20 mg/dL 10 - 50 [facility] Work Phone: Complete Blood Count + Diffe rentialon 02-19-2023 Hematocrit (Bld) [Volume fraction] Canceled [facility] Work Phone: Hemoglobin (Bld) [Mass/Vol] Canceled [facility] Work Phone: Platelets (Bld) [#/Vol] Canceled [facility] Work Phone: RBC (Bld) [#/Vol] Canceled -[facility] Work Phone: Complete Blood Count + Differential Canceled [facility] Work Phone: Comment on above: Immature Granulocyte Count (IG) includes promyelocytes, myelocytes and metamyelocytes but does not include bands. Percent differential counts (%) should be interpreted in the context of the absolute cell counts (cells/L). Follow Up (Rheumatology)on 02-19-2023 Follow Up (Rheumatology) Diagnoses/Problems Assessed Systemic lupus erythematosus (710.0) (M32.9) Fibromyalgia (729.1) (M79.7) Encounter for monitoring of hydroxychloroquine therapy (V58.83,V58.69) (Z51.81,Z79.899) oct 2016, may 2020 Never used tobacco (V49.89) (Z78.9) Class 3 severe obesity due to excess calories with body mass index (BMI) of 50.0 to 59.9 in adult (278.01,V85.43) (E66.01,Z68.43) Orders SocHx: Never used tobacco Some eating tips that can help you lose weight.; Status:Complete; Done: 19Feb2023 04:51PM Ordered; For:SocHx: Never used tobacco; Ordered By:Genie Godinez; Systemic lupus erythematosus Anti-dsDNA (Double Stranded) Antibodies; Status:In Progress - Specimen/Data Collected; Done: 19Feb2023 Perform:Lab Services - Lab To Draw (Blood Test); Due:20May2023;Ordered; For:Systemic lupus erythematosus; Ordered By:Genie Godinez; C Reactive Protein, Serum; Status:In Progress - Specimen/Data Collected; Done: 19Feb2023 Perform:Lab Services - Lab To Draw (Blood Test); Due:20May2023;Ordered; For:Systemic lupus erythematosus; Ordered By:Genie Godinez; C3 Complement, Serum; Status:In Progress - Specimen/Data Collected; Done: 19Feb2023 Perform:Lab Services - Lab To Draw (Blood Test); Due:[id number];Ordered; For:Systemic lupus erythematosus; Ordered By:Genie Godinez; C4 Complement, Serum; Status:In Progress - Specimen/Data Collected; Done: 19Feb2023 Perform:Lab Services - Lab To Draw (Blood Test); Due:[id number];Ordered; For:Systemic lupus erythematosus; Ordered By:Genie Godinez; Complete Blood Count + Differential; Status:In Progress - Specimen/Data Collected; Done: 19Feb2023 Perform:Lab Services - Lab To Draw (Blood Test); Due:20May2023;Ordered; For:Systemic lupus erythematosus; Ordered By:Genie Godinez; Comprehensive Metabolic Panel; Status:In Progress - Specimen/Data Collected; Done: 19Feb2023 Perform:Lab Services - Lab To Draw (Blood Test); Due:20May2023;Ordered; For:Systemic lupus erythematosus; Ordered By:Genie Godinez; Sedimentation Rate, Erythrocyte; Status:In Progress - Specimen/Data Collected; Done: 19Feb2023 Perform:Lab Services - Lab To Draw (Blood Test); Due:20May2023;Ordered; For:Systemic lupus erythematosus; Ordered By:Genie Godinez; Patient Discussion/Summary It was a pleasure seeing you today Please call if symptoms worsen Follow up in 6 months we will notify you of your results by phone, mail or through the patient portal. Please call if you don't receive your test results in 7 days You are on chronic plaquenil. Make sure you see your eye doctor yearly Plaquenil is now dosed based on your weight. We will make sure that your dose is below the maximum dose of 5mg/kg/day You are on an anti-inflammatory. Always make sure you take the medication with food. You increase your risk of an ulcer if not taken correctly. Recent studies have shown there is an increased risk of heart attacks and stroke with chronic use. Discontinue if you have suspicious signs. If possible, try to only take this medication on an as needed basis Patient Education Homegoing instructions As always, a healthy lifestyle helps chronic diseases. These are all the goals you should strive to achieve to improve your overall health: blood pressure less than 130/85 BMI of 21-29.99 or a waist circumference that is 1/2 of your height fasting blood sugar less than 107 (if you are diabetic, aim for your A1c to be below 6.4% LDL cholesterol below 130 avoid smoking manage your stress see your primary care doctor for preventive exams get your immunizations Provider Impressions Lupus on Plaquenil therapy. Patient with increased symptoms and I advised patient on the safety of using etodolac on an as-needed basis. Patient will start using the medication and see if that helps alleviate some of her day-to-day symptoms. Patient is to continue to get annual retinal screening exams. Labs ordered to assess disease.. Records reviewed with patient. Gaps in care reviewed and pt is due for----vaccinations Chief Complaint Lupus follow up History of Present IllnessThe patient is being seen for follow-up of systemic lupus erythematosus. The patient reports no change in the condition. Interval Events: Patient has been noticing some increased pain especially over the last several months due to the weather. She thinks that over the last several days things are starting to lessen. She has not been taking the etodolac for fear of side effects. However she does note improvement when she does take the medication. Associated symptoms: myalgia. Medications: the patient is adherent to her medication regimen, but she denies medication side effects. Review of Systems Constitutional: feeling tired, but no fever. Respiratory: no cough and no shortness of breath during exertion. Gastrointestinal: abdominal pain and diarrhea. Musculoskeletal: arthralgias, joint swelling and joint stiffness. Integumentary: no skin rashes. (more content not included)... Normal [employer] [facility] - Chemistry and C hemistry - challengeon 02-19-2023 Albumin BCP dye [Mass/Vol] 4.2 g/dL 3.4 - 5.0 [employer] [facility] Work Phone: ALP [Catalytic activity/Vol] 59 U/L 33 - 136 [employer] [facility] Work Phone: ALT With P-5'-P [Catalytic activity/Vol] 26 U/L 7 - 45 [employer] [facility] Work Phone: Comment on above: Patients treated wit h Sulfasalazine may generate falsely decreased results for ALT. Anion gap [Moles/Vol] 16 mmol/L 10 - 20 [employer] [facility] Work Phone: AST With P-5'-P [Catalytic activity/Vol] 28 U/L 9 - 39 [employer] [facility] Work Phone: Comment on above: MILD HEMOLYSIS DETEC NAHOMY. The result may be falsely elevated due tohemolysis or other interferents. Clinical correlation is recommended.Repeat testing may be considered. Bilirubin [Mass/Vol] 0.4 mg/dL 0.0 - 1.2 [facility] Work Phone: Calcium [Mass/Vol] 9.6 mg/dL 8.6 - 10.6 [facility] Work Phone: Chloride [Moles/Vol] 104 mmol/L 98 - 107 [facility] Work Phone: CO2 [Moles/Vol] 24 mmol/L 21 - 32 [facility] Work Phone: Creatinine [Mass/Vol] 0.72 mg/dL See Below [facility] Work Phone: Comment on above: Reference Range: 0.5 0 - 1.05 Glucose [Mass/Vol] 267 mg/dL above high threshold 74 - 99 [facility] Work Phone: Potassium [Moles/Vol] 4.3 mmol/L 3.5 - 5.3 [facility] Work Phone: Comment on above: MILD HEMOLYSIS DETEC NAHOMY. The result may be falsely elevated due tohemolysis or other interferents. Clinical correlation is recommended.Repeat testing may be considered. Protein [Mass/Vol] 7.1 g/dL 6.4 - 8.2 [facility] Work Phone: Sodium [Moles/Vol] 140 mmol/L 136 - 145 [facility] Work Phone: Urea nitrogen [Mass/Vol] 17 mg/dL 6 - 23 [facility] Work Phone: No Panel Informationon 02-19 >90 >90 [facility] Work Phone: Comment on above: CALCULATIONS OF JUANA MATED GFR ARE PERFORMED USING THE 2020 CKD-EPI STUDY REFIT EQUATION WITHOUT THE RACE VARIABLE FOR THE IDMS-TRACEABLE CREATININE METHODS.https://jasn.asnjournals.org/content// ASN.1644783348 Sedimentation Rate, Erythroc yteon 02-19-2023 ESR (Bld) [Velocity] Canceled 0 - 30 [facility] Work Phone: Comment on above: This is a corrected result. Previous value was 7, verified at 02/20/2023 01:19 Tobacco Screening.on 023 Fall risk assessment a) No falls within the last year [employer] [facility] Work Phone: Tobacco use status CPHS b) No M [employer] [facility] Work Phone: Laboratory - Hematology and Cell countson 12-10-2022 HbA1c (Bld) [Mass fraction] 6.5 % [facility] Absolute lymphocyte countOrd ered By: Mari Navarro on 11-07-2022 Lymphocytes Auto (Unsp spec) [#/Vol] 2.07 10*3/uL 0.83-4.51 [facility] Basophil percentageOrdered B y: Mari Ramon on 11-07-2022 Ammonia (P) [Moles/Vol] 17.0 umol/L 11-32 [facility] Basophils/100 WBC (Bld) 0.6 % 0-1 [facility] Bilirubin [Mass/Vol] 0.40 mg/dL 0.20-1.00 [facility] Comment on above: For patients on eltr ombopag therapy, use of [employer] [place] TBIL is not recommended. Chloride [Moles/Vol] 102 mmol/L 98-107 [facility] Eosinophils/100 WBC (Bld) 1.1 % 0-5 [facility] Glucose [Mass/Vol] 183 mg/dL 74-106 [facility] Comment on above: Fasting Glucose resu lt greater than or equal to 126 mg/dL suggests DIABETES MELLITUS per A.D.A. criteria. LDH [Catalytic activity/Vol] 208 U/L 84-246 [facility] Neutrophils (Bld) [#/Vol] 4.5 10*3/uL 2.0-7.7 [facility] Neutrophils/100 WBC (Bld) 63.0 % 47-70 [facility] Potassium [Moles/Vol] 3.6 mmol/L 3.5-5.1 [facility] Protein [Mass/Vol] 7.6 g/dL 6.4-8.2 [facility] Sodium [Moles/Vol] 138 mmol/L 136-145 [facility] WBC (Bld) [#/Vol] 7.2 10*3/uL 4.4-11.0 [facility] Blood erythrocytes count (nu mber/volume)Ordered By: Mari Navarro on 11-07-2022 RBC (Bld) [#/Vol] 5.27 10*6/uL 4.2-5.4 [facility] Blood hemoglobin measurement (mass/volume)Ordered By: Mari Navarro on 11-07-2022 Hemoglobin (Bld) [Mass/Vol] 15.0 g/dL 12.0-15.0 [facility] Blood lymphocytes/100 leukoc ytesOrdered By: Mari Navarro on 11-07-2022 Lymphocytes/100 WBC (Bld) 28.9 % 19-41 [facility] Blood monocytes/100 leukocyt esOrdered By: Mari Navarro on 11-07-2022 Monocytes/100 WBC (Bld) 6.0 % 0-10 [facility] Blood platelet mean volumeOr dered By: Mari Navarro on 11-07-2022 Platelet mean volume (Bld) [Entitic vol] 9.9 fL 6.2-12.0 [facility] Determination of erythrocyte mean corpuscular volume (MCV)Ordered By: Mari Navarro on 11-07-2022 MCV (RBC) [Entitic vol] 89.8 fL 81-99 [facility] Hematocrit Auto (Bld) [Volum e fraction]Ordered By: Mari Navarro on 11-07-2022 Hematocrit (Bld) [Volume fraction] 47.3 % 37-47 [facility] INR in Blood by Coagulation assayOrdered By: Mari Navarro on 11-07-2022 INR Coag (Bld) [Relative time] 0.9 {INR} [facility] Laboratory - Chemistry and C hemistry - challengeOrdered By: Mrai Navarro on 11-07-2022 ALP [Catalytic activity/Vol] 74 U/L 45-117 [facility] ALT [Catalytic activity/Vol] 40 U/L 13-56 [facility] CO2 [Moles/Vol] 30.0 mmol/L 21.0-32.0 [facility] Globulin (S) [Mass/Vol] 3.9 g/dL 2.2-4.2 [facility] Urea nitrogen/Creatinine [Mass ratio] 28.5 mg/mg 10-20 [facility] Laboratory - CoagulationOrde red By: Mari Navarro on 11-07-2022 PT Coag (PPP) [Time] 11.4 s 11.7-14.9 [facility] Laboratory - Hematology and Cell countsOrdered By: Mari Navarro on 11-07-2022 Erythrocyte distribution width (RBC) [Entitic vol] 44.9 fL 35.1-43.9 [facility] Erythrocyte distribution width (RBC) [Ratio] 13.7 % 11.6-14.6 [facility] Immature granulocytes/100 WBC (Bld) 0.400 % 0.0-0.9 [facility] Comment on above: IG% - Immature Granu locytes (promyelocytes, myelocytes and metamyelocytes) > 1% indicates that a LEFT SHIFT is Present. MCH (RBC) [Entitic mass] 28.5 pg 27.0-32.0 [facility] Nucleated RBC/100 WBC (Bld) [Ratio] 0 % 0-5 [facility] Laboratory - Hematology and Cell countson 11-07-2022 HbA1c (Bld) [Mass fraction] 6.9 % [facility] Work Phone: MCHC Auto (RBC) [Mass/Vol]Or dered By: Mari Navarro on 11-07-2022 MCHC (RBC) [Mass/Vol] 31.7 g/dL 32-36 [facility] No Panel InformationOrdered By: Mari Navarro on 11-07-2022 Ceruloplasmin 26.5 mg/dL 19.0-39.0 [facility] Estimated GFR (MDRD) Amer 91 mL/min >60 [facility] Comment on above: GFR Calc Estimated GFR (MDRD) Non-Af Amer 75 mL/min >60 [facility] Comment on above: Non- GFR Calc Haptoglobin 158 mg/dL 37-355 [facility] Comment on above: Performed at: CB - [facility] [address] [id number] Director: Vasu Groves PhD, Phone: [phone] at: - [facility] [address] [id number] Director: Jaky Howard MD, Phone: [phone] Hepatitis A IgM Antibody Negative Negative [facility] Hepatitis B Core IgM Antibody Negative Negative [facility] Hepatitis C Antibody (EIA) <0.1 s/co ratio 0.0-0.9 [facility] Hepatitis C Antibody Comment Comment . [facility] Comment on above: NegativeNot infected with HCV, unless recent infection issuspected or other evidence exists to indicate HCVinfection. Platelets bldOrdered By: Sarahi Navarro on 11-07-2022 Platelets (Bld) [#/Vol] 225 10*3/uL 150-450 [facility] Serum mitochondria antibody detectionOrdered By: Mari Navarro on 11-07-2022 Mitochondria Ab Ql (S) <20.0 Units 0.0-20.0 [facility] Comment on above: Negative 0.0 - 20.0 Equivocal 20.1 - 24.9 Positive >24.9Mitochondrial (M2) Antibodies are found in 90-96% ofpatients with primary biliary cirrhosis.Performed at: CB - [facility] [address] [id number] Director: Vasu Groves PhD, Phone: [phone] Serum or plasma actin IgG an tibody assay (units/volume)Ordered By: Mari Navarro on 11-07-2022 Actin IgG Qn 5 Units 0-19 [facility] Comment on above: Negative 0 - 19 Weak positive 20 - 30 Moderate to strong positive >30 Actin Antibodies are found in 52-85% of patients with autoimmune hepatitis or chronic active hepatitis and in 22% of patients with primary biliary cirrhosis. Serum or plasma albumin enoch urement (mass/volume)Ordered By: Mari Navarro on 11-07-2022 Albumin [Mass/Vol] 3.7 g/dL 3.2-5.0 [facility] Serum or plasma albumin/glob ulin mass ratioOrdered By: Mari Navarro on 11-07-2022 Albumin/Globulin [Mass ratio] 0.9 {ratio} 0.9-2.4 [facility] Serum or plasma [id number] protein tumor marker measurement (units/volume)Ordered By: Mari Navarro on 11-07-2022 AFP.tumor marker Qn 4.1 ng/mL 0.0-9.2 [facility] Comment on above: [employer] ectrochemiluminescence Immunoassay(ECLIA)Values obtained with different assay methods or kits cannotbe used interchangeably. Results cannot be interpreted asabsolute evidence of the presence or absence of malignantdisease.This test is not interpretable in females. Serum or plasma angiotensin converting enzyme measurement (enzymatic activity/volume)Ordered By: Mari Navarro on 11-07-2022 Angiotensin converting enzyme [Catalytic activity/Vol] 82 U/L 14-82 [facility] Serum or plasma calcium enoch urement (mass/volume)Ordered By: Mari Navarro on 11-07-2022 Calcium [Mass/Vol] 9.3 mg/dL 8.5-10.1 [facility] Serum or plasma creatinine m easurement (mass/volume)Ordered By: Mari Navarro on 11-07-2022 Creatinine [Mass/Vol] 0.81 mg/dL 0.55-1.02 [facility] Comment on above: The validity of the calculated GFR & GFRAA in patients over 70 years has not been determined. Clinical correlation is essential. Serum or plasma ferritin aurora surement (mass/volume)Ordered By: Mari Navarro on 11-07-2022 Ferritin [Mass/Vol] 35 ng/mL 8-252 [facility] Serum or plasma hepatitis B virus surface antigen detection by immunoassayOrdered By: Mari Navarro on 11-07-2022 HBV surface Ag IA Ql Negative Negative [facility] Serum or plasma urea nitroge n measurement (mass/volume)Ordered By: Mari Navarro on 11-07-2022 Urea nitrogen [Mass/Vol] 23 mg/dL 7-18 [facility] Thin prep Papanicolaou smear with manual screeningOrdered By: Mari Navarro on 11-07-2022 Thin prep Papanicolaou smear with manual screening 22 U/L 15-37 [facility] Thin prep Papanicolaou smear with manual screening 6 5-15 [facility] Thin prep Papanicolaou smear with manual screening 113 ug/dL 80-158 [facility] Comment on above: Detection Limit = 5 Whole blood hemoglobin A1c/t otal hemoglobin ratio (mass fraction)Ordered By: Mari Navarro on 11-07-2022 HbA1c (Bld) [Mass fraction] 6.9 % 3.8-5.6 [facility] Comment on above: Normal < 5.7 % Predi abetic 5.7 - 6.4 % Diabetic >or= 6.5 % Please note range changes. Glucose Glucometer (BldC) [M ass/Vol]Ordered By: Goran Natarajan on 10-22-2022 Glucose [Mass/Vol] 223 mg/dL 74-106 [facility] Comment on above: MANAGEMENT OF PATIEN T CARE PER NURSING PROTOCOL 09-23-2022 36 Patient is no longer a patient of [facility]--she transferred to [facility] 3609-22-2022 36 Patient transferred out of [facility] 08-22-2022 ALT [Catalytic activity/Vol] 29 U/L Normal 7 - 45 [facility] Comment on above: Result Comment: Angelica ents treated with Sulfasalazine may generate falsely decreased results for ALT. Performed By: #### A LT #### [facility] [address] [place] [address] ANTI-DNA [DS]on 08-22-2022 ANTI-DNA [DS] <1.0 Normal [facility] Comment on above: Result Comment: REF VALUES NEGATIVE: <= 4 IU/ML EQUIVOCAL: 5- 9 IU/ML POSITIVE: >=10 IU/ML Performed By: #### C 4 #### [facility] [address] [place] [address] Zbigniew 08-22-2022 AST [Catalytic activity/Vol] 25 U/L Normal 9 - 39 [facility] Comment on above: Performed By: #### C 4 #### [facility] [address] [place] [address] C-REACTIVE PROTEINon 022 C-REACTIVE PROTEIN 0.56 mg/dL Normal [facility] Comment on above: Result Comment: REF VALUE < 1.00 Performed By: #### C RP #### [facility] [address] [place] [address] C3 COMPLEMENTon 08-22-2022 C3 COMPLEMENT 179 mg/dL Normal 87 - 200 [facility] Comment on above: Performed By: #### C 4 #### [facility] [address] [place] [address] C4 COMPLEMENTon 08-22-2022 C4 COMPLEMENT 19 mg/dL Normal 10 - 50 [facility] Comment on above: Performed By: #### C 4 #### [facility] [address] [place] [address] CBC AND DIFFERENTIALon 08-22 % AUTOMATED IMMATURE GRAN 0.5 % Normal 0.0 - 0.9 [facility] Comment on above: Result Comment: Lali ture Granulocyte Count (IG) includes promyelocytes, myelocytes and metamyelocytes but does not include bands. Percent differential counts (%) should be interpreted in the context of the absolute cell counts (cells/L). Performed By: #### C 4 #### [facility] [address] [place] [address] Basophils (Bld) [#/Vol] 0.04 10*3/uL Normal 0.00 - 0.10 [facility] Comment on above: Performed By: #### C 4 #### [facility] [address] [place] [address] Basophils/100 WBC (Bld) 0.6 % Normal 0.0 - 2.0 [facility] Comment on above: Performed By: #### C 4 #### [facility] [address] [place] [address] Eosinophils (Bld) [#/Vol] 0.07 10*3/uL Normal 0.00 - 0.70 [facility] Comment on above: Performed By: #### C 4 #### [facility] [address] [place] [address] Eosinophils/100 WBC (Bld) 1.1 % Normal 0.0 - 6.0 [facility] Comment on above: Performed By: #### C 4 #### [facility] [address] [place] [address] Erythrocyte distribution width (RBC) [Ratio] 13.8 % Normal 11.5 - 14.5 [facility] Comment on above: Performed By: #### C 4 #### [facility] [address] [place] [address] Hematocrit (Bld) [Volume fraction] 48.1 % High 36.0 - 46.0 [facility] Comment on above: Performed By: #### C 4 #### [facility] [address] [place] [address] Hemoglobin (Bld) [Mass/Vol] 14.7 g/dL Normal 12.0 - 16.0 [facility] Comment on above: Performed By: #### C 4 #### [facility] [address] [place] [address] Lymphocytes (Bld) [#/Vol] 1.64 10*3/uL Normal 1.20 - 4.80 [facility] Comment on above: Performed By: #### C 4 #### [facility] [address] [place] [address] Lymphocytes/100 WBC (Bld) 24.8 % Normal 13.0 - 44.0 [facility] Comment on above: Performed By: #### C 4 #### [facility] [address] [place] [address] MCHC (RBC) [Mass/Vol] 30.6 g/dL Low 32.0 - 36.0 [facility] Comment on above: Performed By: #### C 4 #### [facility] [address] [place] [address] MCV (RBC) [Entitic vol] 94 fL Normal 80 - 100 [facility] Comment on above: Performed By: #### C 4 #### [facility] [address] [place] [address] Monocytes (Bld) [#/Vol] 0.50 10*3/uL Normal 0.10 - 1.00 [facility] Comment on above: Performed By: #### C 4 #### [facility] [address] [place] [address] Monocytes/100 WBC (Bld) 7.6 % Normal 2.0 - 10.0 [facility] Comment on above: Performed By: #### C 4 #### [facility] [address] [place] [address] Neutrophils (Bld) [#/Vol] 4.33 10*3/uL Normal 1.20 - 7.70 [facility] Comment on above: Performed By: #### C 4 #### [facility] [address] [place] [address] Neutrophils/100 WBC (Bld) 65.4 % Normal 40.0 - 80.0 [facility] Comment on above: Performed By: #### C 4 #### [facility] [address] [place] [address] NUCLEATED RBC 0.0 /100 WBC Normal 0.0-0.0 [facility] Comment on above: Performed By: #### C 4 #### [facility] [address] [place] [address] Platelets (Bld) [#/Vol] 216 10*3/uL Normal 150 - 450 [facility] Comment on above: Performed By: #### C 4 #### [facility] [address] [place] [address] RBC 5.12 x10E12/L Normal 4.00 - 5.20 [facility] Comment on above: Performed By: #### C 4 #### [facility] [address] [place] [address] WBC (Bld) [#/Vol] 6.6 10*3/uL Normal 4.4 - 11.3 [facility] Comment on above: Performed By: #### C 4 #### [facility] [address] [place] [address] CREATININEon 08-22-2022 Creatinine [Mass/Vol] 0.80 mg/dL Normal 0.50 - 1.05 [facility] Comment on above: Performed By: #### C REAT #### [facility] [address] [place] [address] GFR/1.73 sq M.predicted among non-blacks MDRD (S/P/Bld) [Vol rate/Area] 81 mL/min/{1.73_m2} Normal >90 [facility] Comment on above: Result Comment: CALC ULATIONS OF ESTIMATED GFR ARE PERFORMED USING THE 2020 CKD-EPI STUDY REFIT EQUATION WITHOUT THE RACE VARIABLE FOR THE IDMS-TRACEABLE CREATININE METHODS. https://jasn.asnjournals.org/content/early/ASN.2020 045308 Performed By: #### C REAT #### [facility] [address] [place] [address] SEDIMENTATION RATE, ERYTHROC YTEon 08-22-2022 SEDIMENTATION RATE, ERYTHROCYTE 20 mm/h Normal 0 - 30 [facility] Comment on above: Performed By: #### C 4 #### [facility] [address] [place] [address] UREA NITROGENon 08-22-2022 Urea nitrogen [Mass/Vol] 14 mg/dL Normal 6 - 23 [facility] Comment on above: Performed By: #### U TAIWO #### [facility] [address] [place] [address] ALT - Alanine Aminotransfera se, Serumon 08-21-2022 ALT With P-5'-P [Catalytic activity/Vol] 29 U/L 7 - 45 -[facility] Work Phone: Comment on above: Patients treated wit h Sulfasalazine may generate falsely decreased results for ALT. Anti-dsDNA (Double Stranded) Antibodieson 08-21-2022 DNA double strand Ab Qn (S) [IU]/mL [facility] Work Phone: Comment on above: REF VALUESNEGATIVE: <= 4 IU/MLEQUIVOCAL: 5- 9 IU/MLPOSITIVE: >=10 IU/ML Blood Urea Nitrogen, Serumon 08-21-2022 Urea nitrogen [Mass/Vol] 14 mg/dL 6 - 23 [facility] Work Phone: C Reactive Protein, Serumon 08-21-2022 CRP [Mass/Vol] 0.56 mg/dL [facility] Work Phone: Comment on above: REF VALUE< 1.00 C3 Complement, Serumon 08-21 Complement C3 [Mass/Vol] 179 mg/dL 87 - 200 [facility] Work Phone: C4 Complement, Serumon 08-21 Complement C4 [Mass/Vol] 19 mg/dL 10 - 50 [facility] Work Phone: Complete Blood Count + Diffe rentialon 08-21-2022 Basophils/100 WBC (Bld) 0.6 % 0.0 - 2.0 [facility] Work Phone: Erythrocyte distribution width (RBC) [Ratio] 13.8 % See Below [facility] Work Phone: Comment on above: Reference Range: 11. 5 - 14.5 Hematocrit (Bld) [Volume fraction] 48.1 % above high threshold See Below [facility] Work Phone: Comment on above: Reference Range: 36. 0 - 46.0 Hemoglobin (Bld) [Mass/Vol] 14.7 g/dL See Below [facility] Work Phone: Comment on above: Reference Range: 12. 0 - 16.0 Lymphocytes/100 WBC (Bld) 24.8 % See Below [facility] Work Phone: Comment on above: Reference Range: 13. 0 - 44.0 MCHC (RBC) [Mass/Vol] 30.6 g/dL below low threshold See Below [facility] Work Phone: Comment on above: Reference Range: 32. 0 - 36.0 MCV (RBC) [Entitic vol] 94 fL 80 - 100 M [facility] Work Phone: Monocytes/100 WBC (Bld) 7.6 % 2.0 - 10.0 M [facility] Work Phone: Neutrophils/100 WBC (Bld) 65.4 % See Below [facility] Work Phone: Comment on above: Reference Range: 40. 0 - 80.0 Platelets (Bld) [#/Vol] 216 10*3/uL 150 - 450 -[facility] Work Phone: RBC (Bld) [#/Vol] 5.12 {x10E12/L} See Below [facility] Work Phone: Comment on above: Reference Range: 4.0 0 - 5.20 WBC (Bld) [#/Vol] 6.6 10*3/uL 4.4 - 11.3 -[facility] Work Phone: Complete Blood Count + Differential 0.04 {x10E9/L} See Below [facility] Work Phone: Comment on above: Reference Range: 0.0 0 - 0.10 Complete Blood Count + Differential 0.07 {x10E9/L} See Below [facility] Work Phone: Comment on above: Reference Range: 0.0 0 - 0.70 Complete Blood Count + Differential 0.50 {x10E9/L} See Below [facility] Work Phone: Comment on above: Reference Range: 0.1 0 - 1.00 Complete Blood Count + Differential 1.64 {x10E9/L} See Below [employer] [facility] Work Phone: Comment on above: Reference Range: 1.2 0 - 4.80 Complete Blood Count + Differential 4.33 {x10E9/L} See Below [facility] [facility] Work Phone: Comment on above: Reference Range: 1.2 0 - 7.70 Complete Blood Count + Differential 1.1 % 0.0 - 6.0 [facility] Work Phone: Complete Blood Count + Differential 0.5 % 0.0 - 0.9 [facility] Work Phone: Comment on above: Immature Granulocyte Count (IG) includes promyelocytes, myelocytes and metamyelocytes but does not include bands. Percent differential counts (%) should be interpreted in the context of the absolute cell counts (cells/L). Complete Blood Count + Differential 0.0 {/100_WBC} 0.0-0.0 [facility] Work Phone: Creatinine, Serumon 08-21-20 Creatinine [Mass/Vol] 0.80 mg/dL See Below [employer] [facility] Work Phone: Comment on above: Reference Range: 0.5 0 - 1.05 Creatinine, Serum 81 {mL/min/1.73m2} >90 [facility] Work Phone: Comment on above: CALCULATIONS OF JUANA MATED GFR ARE PERFORMED USING THE 2020 CKD-EPI STUDY REFIT EQUATION WITHOUT THE RACE VARIABLE FOR THE IDMS-TRACEABLE CREATININE METHODS.https://jasn.asnjournals.org/content/early// ASN.4763496121 Follow Up (Rheumatology)on 10-21-2021 Follow Up (Rheumatology) Diagnoses/Problems Assessed Systemic lupus erythematosus (710.0) (M32.9) Fibromyalgia (729.1) (M79.7) Encounter for monitoring of hydroxychloroquine therapy (V58.83,V58.69) (Z51.81,Z79.899) oct 2016, may 2020 Encounter for immunization (V03.89) (Z23) Class 3 severe obesity due to excess calories with body mass index (BMI) of 50.0 to 59.9 in adult (278.01,V85.43) (E66.01,Z68.43) Orders Class 3 severe obesity due to excess calories with body mass index (BMI) of 50.0 to 59.9 in adult Some eating tips that can help you lose weight.; Status:Complete; Done: 21Aug2022 Ordered; For:Class 3 severe obesity due to excess calories with body mass index (BMI) of 50.0 to 59.9 in adult; Ordered By:Genie Godinez; Encounter for immunization Administered: Fluzone High-Dose Quadrivalent 0.7 ML Intramuscular Suspension Prefilled Syringe For: Encounter for immunization; Ordered By:Genie Godinez; Effective Date:21Aug2022; Administered by: Nhi Del Rio VISUAL MERCHANDISER: 08/21/2022 3:15:00 PM; Last Updated By: Nhi Del Rio; 08/21/2022 3:16:49 PM Systemic lupus erythematosus Avoid foods and beverages that contain caffeine. These include coffee, vaishali and other soft drinks, chocolate and tea.; Status:Complete; Done: 21Aug2022 Ordered; For:Systemic lupus erythematosus; Ordered By:Genie Godinez; Begin a limited exercise program.; Status:Complete; Done: 21Aug2022 Ordered; For:Systemic lupus erythematosus; Ordered By:Genie Godinez; Continue with our present treatment plan.; Status:Complete; Done: 21Aug2022 Ordered; For:Systemic lupus erythematosus; Ordered By:Genie Godinez; Decreasing the stress in your life may help your condition improve.; Status:Complete; Done: 21Aug2022 Ordered; For:Systemic lupus erythematosus; Ordered By:Genie Godinez; Limit your use of alcohol to 2 drinks or cans of beer a day.; Status:Complete; Done: 21Aug2022 Ordered; For:Systemic lupus erythematosus; Ordered By:Genie Godinez; Use a sun block product with an SPF of 15 or more.; Status:Complete; Done: 21Aug2022 Ordered; For:Systemic lupus erythematosus; Ordered By:Genie Godinez; Patient Discussion/Summary It was a pleasure seeing you today Please call if symptoms worsen Follow up in 6 months we will notify you of your results by phone, mail or through the patient portal. Please call if you don't receive your test results in 7 days You are on chronic plaquenil. Make sure you see your eye doctor yearly Plaquenil is now dosed based on your weight. We will make sure that your dose is below the maximum dose of 5mg/kg/day You are on an anti-inflammatory. Always make sure you take the medication with food. You increase your risk of an ulcer if not taken correctly. Recent studies have shown there is an increased risk of heart attacks and stroke with chronic use. Discontinue if you have suspicious signs. If possible, try to only take this medication on an as needed basis Patient Education Homegoing instructions As always, a healthy lifestyle helps chronic diseases. These are all the goals you should strive to achieve to improve your overall health: blood pressure less than 130/85 BMI of 21-29.99 or a waist circumference that is 1/2 of your height fasting blood sugar less than 107 (if you are diabetic, aim for your A1c to be below 6.4% LDL cholesterol below 130 avoid smoking manage your stress see your primary care doctor for preventive exams get your immunizations Provider Impressions Patient seen primarily today for lupus fibromyalgia and osteoarthritis. Patient is on Plaquenil for the lupus. Symptoms are most likely more due to osteoarthritis and fibromyalgia than progression of her lupus. Labs ordered to assess disease activity. Patient is to continue to see other specialist. She is to follow-up with me in 6 months To assess diagnosis and determine treatment plan, the following occurred today ---Testing was ordered and see order section for details This visit has a moderate risk for morbidity as ---prescription drugs are being prescribed and monitored Gaps in care reviewed and pt is due for---colon cancer screening---vaccination s ---COVID primary vaccination and booster completed Chief Complaint Lupus follow up History of Present IllnessThe patient is being seen for follow-up of systemic lupus erythematosus. The patient reports no change in the condition. Interval Events: some achiness with the weather change. Did have chest pain and had work up that was negative. Now getting workup for GI symptoms . Associated symptoms: myalgia. Medications: the patient is adherent to her medication regimen, but she denies medication side effects. Review of Systems Constitutional: feeling tired, but no fever. Respiratory: no cough and no shortness of breath during exertion. Gastrointestinal: abdominal pain and diarrhea. Musculoskeletal: arthralgias, joint swelling and joint stiffness. Integumentary: no skin rashes. All (more content not included)... Normal [facility] - Chemistry and C hemistry - challengeon 08-21-2022 AST With P-5'-P [Catalytic activity/Vol] 25 U/L 9 - 39 [employer] [facility] Work Phone: Sedimentation Rate, Erythroc yteon 08-21-2022 ESR (Bld) [Velocity] 20 mm/h 0 - 30 [employer] [facility] Work Phone: Tobacco Screening.on 022 Fall risk assessment a) No falls within the last year [employer] [facility] Work Phone: Tobacco use status CPHS b) No [facility] Work Phone: No Panel InformationOrdered By: Mari Navarro on 08-20-2022 Stool Calprotectin 139 ug/g 0-120 [facility] Comment on above: Concentration Interp retation Follow-Up<16 - 50 ug/g Normal None>50 -120 ug/g Borderline Re-evaluate in 4-6 weeks >120 ug/g Abnormal Repeat as clinically indicatedPerformed at: - [facility] [address] [id number] Director: Jaky Howard MD, Phone: [phone] Stool lactoferrin detection by immunoassayOrdered By: Mari Navarro on 08-20-2022 Lactoferrin IA Ql (Stl) [facility] Absolute lymphocyte countOrd ered By: Mari Navarro on 08-19-2022 Lymphocytes Auto (Unsp spec) [#/Vol] 2.32 10*3/uL 0.83-4.51 [facility] Atypical perinuclear antineu trophil cytoplasmic antibodies measurementOrdered By: Mari Navarro on 08-19-2022 Neutrophil cytoplasmic Ab.perinuclear.atypical IF (S) [Titer] <1:20 titer Neg:<1:20 [facility] Comment on above: Serum is slightly li pemic.The atypical pANCA pattern has been observed in asignificant percentage of patients with ulcerative colitis,primary sclerosing cholangitis and autoimmune hepatitis.Performed at: [employer] [facility] [id number] Director: Vasu Groves PhD, Phone: [phone] Basophil percentageOrdered B y: Mari Navarro on 08-19-2022 Basophil percentage < 0.2 AI 0.0-0.9 [facility] Basophils/100 WBC (Bld) 0.3 % 0-1 [facility] Bilirubin [Mass/Vol] 0.30 mg/dL 0.20-1.00 [facility] Comment on above: For patients on eltr ombopag therapy, use of Dimension [place] TBIL is not recommended. Chloride [Moles/Vol] 102 mmol/L 98-107 [facility] Eosinophils/100 WBC (Bld) 1.2 % 0-5 [facility] Glucose [Mass/Vol] 129 mg/dL 74-106 [facility] Comment on above: Fasting Glucose resu lt greater than or equal to 126 mg/dL suggests DIABETES MELLITUS per A.D.A. criteria. Neutrophils (Bld) [#/Vol] 4.5 10*3/uL 2.0-7.7 [facility] Neutrophils/100 WBC (Bld) 59.0 % 47-70 [facility] Potassium [Moles/Vol] 3.8 mmol/L 3.5-5.1 [facility] Comment on above: Moderate Hemolysis, Result may be falsely increased. Protein [Mass/Vol] 7.4 g/dL 6.4-8.2 [facility] Sodium [Moles/Vol] 138 mmol/L 136-145 [facility] WBC (Bld) [#/Vol] 7.5 10*3/uL 4.4-11.0 [facility] Blood erythrocytes count (nu mber/volume)Ordered By: Mari Navarro on 08-19-2022 RBC (Bld) [#/Vol] 5.19 10*6/uL 4.2-5.4 [facility] Blood hemoglobin measurement (mass/volume)Ordered By: Mari Navarro on 08-19-2022 Hemoglobin (Bld) [Mass/Vol] 15.3 g/dL 12.0-15.0 [facility] Blood lymphocytes/100 leukoc ytesOrdered By: Mari Navarro on 08-19-2022 Lymphocytes/100 WBC (Bld) 30.8 % 19-41 [facility] Blood monocytes/100 leukocyt esOrdered By: Mari Navarro on 08-19-2022 Monocytes/100 WBC (Bld) 8.2 % 0-10 [facility] Blood platelet mean volumeOr dered By: Mari Navarro on 08-19-2022 Platelet mean volume (Bld) [Entitic vol] 11.0 fL 6.2-12.0 [facility] Determination of erythrocyte mean corpuscular volume (MCV)Ordered By: Mari Navarro on 08-19-2022 MCV (RBC) [Entitic vol] 91.3 fL 81-99 [facility] Erythrocyte sedimentation ra teOrdered By: Mari Navarro on 08-19-2022 ESR (Bld) [Velocity] 31 mm/h 0-30 [facility] Hematocrit Auto (Bld) [Volum e fraction]Ordered By: Mari Navarro on 08-19-2022 Hematocrit (Bld) [Volume fraction] 47.4 % 37-47 [facility] - Chemistry and C hemistry - challengeOrdered By: Mari Navarro on 08-19-2022 ALP [Catalytic activity/Vol] 85 U/L 45-117 [facility] ALT [Catalytic activity/Vol] 40 U/L 13-56 [facility] CO2 [Moles/Vol] 28.0 mmol/L 21.0-32.0 [facility] Globulin (S) [Mass/Vol] 4.0 g/dL 2.2-4.2 [facility] Urea nitrogen/Creatinine [Mass ratio] 20.5 mg/mg 10-20 [facility] Laboratory - Hematology and Cell countsOrdered By: Mari Navarro on 08-19-2022 Erythrocyte distribution width (RBC) [Entitic vol] 46.2 fL 35.1-43.9 [facility] Erythrocyte distribution width (RBC) [Ratio] 13.7 % 11.6-14.6 [facility] Immature granulocytes/100 WBC (Bld) 0.500 % 0.0-0.9 [facility] Comment on above: IG% - Immature Granu locytes (promyelocytes, myelocytes and metamyelocytes) > 1% indicates that a LEFT SHIFT is Present. MCH (RBC) [Entitic mass] 29.5 pg 27.0-32.0 [facility] Nucleated RBC/100 WBC (Bld) [Ratio] 0 % 0-5 [facility] MCHC Auto (RBC) [Mass/Vol]Or dered By: Mari Navarro on 08-19-2022 MCHC (RBC) [Mass/Vol] 32.3 g/dL 32-36 [facility] No Panel InformationOrdered By: Mari Navarro on 08-19-2022 Centromere B Antibody <0.2 AI 0.0-0.9 [facility] Endomysial IgA Antibody Negative Negative [facility] Estimated GFR (MDRD) Amer 89 mL/min >60 [facility] Comment on above: GFR Calc Estimated GFR (MDRD) Non-Af Amer 73 mL/min >60 [facility] Comment on above: Non- GFR Calc [employer]CH[employer]OVEL OPERATOR Antibody <0.2 AI 0.0-0.9 [facility] Platelets bldOrdered By: Sarahi Navarro on 08-19-2022 Platelets (Bld) [#/Vol] 247 10*3/uL 150-450 [facility] Serum DNA double strand anti body assay (units/volume)Ordered By: Mari Navarro on 08-19-2022 DNA double strand Ab Qn (S) [IU]/mL 0-9 [facility] Comment on above: Negative <5 Equivoca l 5 - 9 Positive >9 Serum IgA measurement (units /volume)Ordered By: Mari Navarro on 08-19-2022 IgA Qn (S) 272 mg/dL 87-352 [facility] Serum Sherry-1 antibody assay (u nits/volume)Ordered By: Mari Navarro on 08-19-2022 Sherry-1 extractable nuclear Ab Qn (S) <0.2 AI 0.0-0.9 [facility] Serum Scl-70 extractable nuc lear antibody assay (units/volume)Ordered By: Mari Navarro on 08-19-2022 SCL-70 extractable nuclear Ab Qn (S) <0.2 AI 0.0-0.9 [facility] Serum Spear extractable nucl ear antibody detectionOrdered By: Mari Navarro on 08-19-2022 Spear extractable nuclear Ab Ql (S) <0.2 AI 0.0-0.9 [facility] Serum classic neutrophil cyt oplasmic antibody assay (units/volume)Ordered By: Mari Navarro on 08-19-2022 Neutrophil cytoplasmic Ab.classic Qn (S) <1:20 titer Neg:<1:20 [facility] Comment on above: Serum is slightly li pemic. Serum or plasma C reactive p rotein measurement (mass/volume)Ordered By: Mari Navarro on 08-19-2022 CRP [Mass/Vol] 4.08 mg/L 0.0-3.0 [facility] Comment on above: C-Reactive Protein ( CRP) provides useful information for thediagnosis, therapy and monitoring of inflammatory processesand associated diseases. For the evaluation of Relative Riskfor Cardiovascular Disease, a High Sensitivity CRP (HSCRP)should be ordered. Serum or plasma albumin enoch urement (mass/volume)Ordered By: Mari Navarro on 08-19-2022 Albumin [Mass/Vol] 3.4 g/dL 3.2-5.0 [facility] Serum or plasma albumin/glob ulin mass ratioOrdered By: Mari Navarro on 08-19-2022 Albumin/Globulin [Mass ratio] 0.8 {ratio} 0.9-2.4 [facility] Serum or plasma calcium enoch urement (mass/volume)Ordered By: Mari Navarro on 08-19-2022 Calcium [Mass/Vol] 9.1 mg/dL 8.5-10.1 [facility] Serum or plasma creatinine m easurement (mass/volume)Ordered By: Mari Navarro on 08-19-2022 Creatinine [Mass/Vol] 0.83 mg/dL 0.55-1.02 [facility] Comment on above: The validity of the calculated GFR & GFRAA in patients over 70 years has not been determined. Clinical correlation is essential. Serum or plasma urea nitroge n measurement (mass/volume)Ordered By: Mari Navarro on 08-19-2022 Urea nitrogen [Mass/Vol] 17 mg/dL 7-18 [facility] Serum perinuclear neutrophil cytoplasmic antibody titer by immunofluorescenceOrdered By: Mari Navarro on 08-19-2022 Neutrophil cytoplasmic Ab.perinuclear IF (S) [Titer] <1:20 titer Neg:<1:20 [facility] Comment on above: Serum is slightly li pemic.The presence of positive fluorescence exhibiting P-ANCA orC-ANCA patterns alone is not specific for the diagnosis ofWegener's Granulomatosis (WG) or microscopic polyangiitis.Decisions about treatment should not be based solely onANCA IFA results. The International ANCA Group Consensusrecommends follow up testing of positive sera with both NH-3 and MPO-ANCA enzyme immunoassays. As many as 5% serumsamples are positive only by EIA. Ref. AM J Clin Yadplr0434;111:507-513. Serum tissue transglutaminas e IgA antibody assay (units/volume)Ordered By: Mari Navarro on 08-19-2022 tTG IgA Qn (S) 3 U/mL 0-3 [facility] Comment on above: Negative 0 - 3 Weak Positive 4 - 10 Positive >10 Tissue Transglutaminase (tTG) has been identified as the endomysial antigen. Studies have demonstr- ated that endomysial IgA antibodies have over 99% specificity for gluten sensitive enteropathy. Thin prep Papanicolaou smear with manual screeningOrdered By: Mari Navarro on 08-19-2022 Thin prep Papanicolaou smear with manual screening 32 U/L 15-37 [facility] Comment on above: Moderate Hemolysis, Result may be falsely increased. Thin prep Papanicolaou smear with manual screening 8 5-15 [facility] Thin prep Papanicolaou smear with manual screening 232 U/L 84-246 [facility] Comment on above: Moderate Hemolysis, Result may be falsely increased. CIARAN SCREENINGon 08-14-2022 [facility] Laboratory - Hematology and Cell countson 06-11-2022 HbA1c (Bld) [Mass fraction] 7.1 % [facility] Work Phone: Absolute lymphocyte counton 05-07-2022 Lymphocytes Auto (Unsp spec) [#/Vol] 1.91 10*3/uL 0.83-4.51 [facility] Work Phone: Basophil percentageon 2021 Basophils/100 WBC (Bld) 0.4 % 0-1 [facility] Work Phone: Chloride [Moles/Vol] 103 mmol/L 98-107 [facility] Work Phone: Eosinophils/100 WBC (Bld) 1.4 % 0-5 [facility] Work Phone: Glucose [Mass/Vol] 237 mg/dL 74-106 [facility] Work Phone: Comment on above: Glucose result great er than or equal to 200 mg/dLsuggests DIABETES MELLITUS per A.D.A. criteria. Neutrophils (Bld) [#/Vol] 4.6 10*3/uL 2.0-7.7 [facility] Work Phone: Neutrophils/100 WBC (Bld) 63.0 % 47-70 [facility] Work Phone: Potassium [Moles/Vol] 3.7 mmol/L 3.5-5.1 [facility] Work Phone: Sodium [Moles/Vol] 139 mmol/L 136-145 [facility] Work Phone: WBC (Bld) [#/Vol] 7.3 10*3/uL 4.4-11.0 [facility] Work Phone: Blood erythrocytes count (nu mber/volume)on 05-07-2022 RBC (Bld) [#/Vol] 5.07 10*6/uL 4.2-5.4 [facility] Work Phone: Blood hemoglobin measurement (mass/volume)on 05-07-2022 Hemoglobin (Bld) [Mass/Vol] 14.7 g/dL 12.0-15.0 [facility] Work Phone: Blood lymphocytes/100 leukoc yteson 05-07-2022 Lymphocytes/100 WBC (Bld) 26.3 % 19-41 [facility] Work Phone: Blood monocytes/100 leukocyt eson 05-07-2022 Monocytes/100 WBC (Bld) 8.3 % 0-10 [facility] Work Phone: Blood platelet mean volumeon 05-07-2022 Platelet mean volume (Bld) [Entitic vol] 11.0 fL 6.2-12.0 [facility] Work Phone: Determination of erythrocyte mean corpuscular volume (MCV)on 05-07-2022 MCV (RBC) [Entitic vol] 90.1 fL 81-99 [facility] Work Phone: Hematocrit Auto (Bld) [Volum e fraction]on 05-07-2022 Hematocrit (Bld) [Volume fraction] 45.7 % 37-47 [facility] Work Phone: Laboratory - Chemistry and C hemistry - challengeon 05-07-2022 CO2 [Moles/Vol] 29.0 mmol/L 21.0-32.0 [facility] Work Phone: Urea nitrogen/Creatinine [Mass ratio] 25.0 mg/mg 08-07 [facility] Work Phone: Laboratory - Hematology and Cell countson 05-07-2022 Erythrocyte distribution width (RBC) [Entitic vol] 46.4 fL 35.1-43.9 [facility] Work Phone: Erythrocyte distribution width (RBC) [Ratio] 14.1 % 11.6-14.6 [facility] Work Phone: Immature granulocytes/100 WBC (Bld) 0.600 % 0.0-0.9 [facility] Work Phone: Comment on above: IG% - Immature Granu locytes (promyelocytes, myelocytes and metamyelocytes) > 1% indicates that a LEFT SHIFT is Present. MCH (RBC) [Entitic mass] 29.0 pg 27.0-32.0 [facility] Work Phone: Nucleated RBC/100 WBC (Bld) [Ratio] 0 % 0-5 [facility] Work Phone: MCHC Auto (RBC) [Mass/Vol]on 05-07-2022 MCHC (RBC) [Mass/Vol] 32.2 g/dL 32-36 [facility] Work Phone: No Panel Informationon 05-07 Estimated GFR (MDRD) Amer 98 mL/min >60 [facility] Work Phone: Comment on above: GFR Calc Estimated GFR (MDRD) Non-Af Amer 81 mL/min >60 [facility] Work Phone: Comment on above: Non- GFR Calc Platelets bldon 05-07-2022 Platelets (Bld) [#/Vol] 223 10*3/uL 150-450 [facility] Work Phone: Serum or plasma calcium enoch urement (mass/volume)on 05-07-2022 Calcium [Mass/Vol] 9.3 mg/dL 8.5-10.1 [facility] Work Phone: Serum or plasma creatinine m easurement (mass/volume)on 05-07-2022 Creatinine [Mass/Vol] 0.76 mg/dL 0.55-1.02 [facility] Work Phone: Comment on above: The validity of the calculated GFR & GFRAA in patients over 70 years has not been determined. Clinical correlation is essential. Serum or plasma urea nitroge n measurement (mass/volume)on 05-07-2022 Urea nitrogen [Mass/Vol] 19 mg/dL 7-18 [facility] Work Phone: Thin prep Papanicolaou smear with manual screeningon 05-07-2022 Thin prep Papanicolaou smear with manual screening 7 5-15 [facility] Work Phone: XR CHEST 2V FRONTAL/LATon [facility] XR Chest PA and Lateralon IMPRESSION: No acute radiographic abnormality. Table Tender Sludge: ED Transcribe Date/Time: Mar 12 2022 11:35A Dictated by : LUIS MORRIS MD This examination was interpreted and the report reviewed and electronically signed by: LUIS MORRIS MD on Mar 12 2022 11:36AM EST ZZZ_DO_NOT_USE _DIVISION OF RADIOLOGY * * *Final Report* * * DATE OF EXAM: Mar 12 2022 11:33AM WOX [id number] - XR CHEST 2V FRONTAL/LAT / PROCEDURE REASON: Chest pain, unspecified type * * * * Physician Interpretation * * * * EXAMINATION: CHEST RADIOGRAPH (2 VIEW FRONTAL & LATERAL) CLINICAL HISTORY: Chest pain, unspecified type MQ: XC2_6 EXAM DATE/TIME: 03/12/2022 11:33 AM COMPARISON: 05/09/2015 RESULT: Lines, tubes, and devices: None. Lungs and pleura: No consolidation. No lung mass. No pleural effusion. No pneumothorax. Lung moulton are now clear Cardiomediastinal silhouette: Normal cardiomediastinal silhouette. Bones and soft tissues: Unremarkable. ZZZ_DO_NOT_USE _DIVISION OF RADIOLOGY Provider, [facility] - 03/12/2022 * * *Final Report* * * DATE OF EXAM: Mar 12 2022 11:33AM WOX [id number] - XR CHEST 2V FRONTAL/LAT / PROCEDURE REASON: Chest pain, unspecified type * * * * Physician Interpretation * * * * EXAMINATION: CHEST RADIOGRAPH (2 VIEW FRONTAL & LATERAL) CLINICAL HISTORY: Chest pain, unspecified type MQ: XC2_6 EXAM DATE/TIME: 03/12/2022 11:33 AM COMPARISON: 05/09/2015 RESULT: Lines, tubes, and devices: None. Lungs and pleura: No consolidation. No lung mass. No pleural effusion. No pneumothorax. Lung moulton are now clear Cardiomediastinal silhouette: Normal cardiomediastinal silhouette. Bones and soft tissues: Unremarkable. IMPRESSION IMPRESSION: No acute radiographic abnormality. Table Tender Sludge: ED Transcribe Date/Time: Mar 12 2022 11:35A Dictated by : LUIS MORRIS MD This examination was interpreted and the report reviewed and electronically signed by: LUIS MORRIS MD on Mar 12 2022 11:36AM EST [facility] Radiology Study observation (narrative) Rosy cortez [facility] XR Chest PA and LateralOrder ed By: [facility] Provider on 03-12-2022 [facility] Laboratory - Hematology and Cell countson 12-05-2021 HbA1c (Bld) [Mass fraction] 6.6 % [facility] Work Phone: Laboratory - Hematology and Cell countson 09-18-2021 HbA1c (Bld) [Mass fraction] 7.2 % [facility] Work Phone: Tobacco Screening.on 021 Fall risk assessment a) No falls within the last year [facility] Work Phone: Tobacco use status CPHS b) No M [employer] [facility] Work Phone: Tobacco Screening.on 021 Fall risk assessment a) No falls within the last year [facility]OOKSIM[facility] Work Phone: Tobacco use status CPHS b) No M [employer] [facility] Work Phone: Laboratory - Hematology and Cell countson 01-29-2021 HbA1c (Bld) [Mass fraction] 7.4 % LOO[facility]IMA [facility] Work Phone: Otheron 08-02-2020 Three-view right kne e 08/01/2020 1:37 PM CDTHistory:ARTHRITISPri or Study:[None]Findings:Th ere is narrowing of the patellofemoral and medial joint space. There is osteophyte formation involving the patella, the distal femur, and the proximal tibia. The findings are consistent with moderate osteoarthritic changes. There is no definite acute fracture or dislocation. There is no periosteal reaction, bone destruction, or radiopaque foreign body. There is a small calcification identified above the patella on the lateral projection.Impression:M oderate osteoarthritic changes of the right knee as discussed aboveNo definite acute osseous findings[]Electronicall y signed by: Yeimi Pantoja MD 08/02/2020 1:09 PM CDT [id number]: PARRISictated By: RENO PANTOJA MDigned By: Su PANTOJA MD Out: 08/02/20 14:09:45 Normal [facility] Work Phone: Comment on above: Ordering Provider: Rita Godinez XR KNEE RIGHT 3 VIEWSon 07-19 XR KNEE RIGHT 3 VIEWS Three-view right k nee 08/01/2020 1:37 PM CDT History: ARTHRITIS Prior Study: [None] Findings: There is narrowing of the patellofemoral and medial joint space. There is osteophyte formation involving the patella, the distal femur, and the proximal tibia. The findings are consistent with moderate osteoarthritic changes. There is no definite acute fracture or dislocation. There is no periosteal reaction, bone destruction, or radiopaque foreign body. There is a small calcification identified above the patella on the lateral projection. Impression: Moderate osteoarthritic changes of the right knee as discussed above No definite acute osseous findings [] Electronically signed by: Yeimi Pantoja MD 08/02/2020 1:09 PM CDT Technologist: PRASHANTH Dictated By: YEIMI PANTOJA MD Signed By: YEIMI PANTOJA MD Signed Out: 08/02/20 14:09:45 Normal [facility] ALT - Alanine Aminotransfera se, Serumon 08-01-2020 ALT With P-5'-P [Catalytic activity/Vol] 37 U/L 7 - 45 [facility] Work Phone: Comment on above: Patients treated wit h Sulfasalazine may generate falsely decreased results for ALT. Anti-dsDNA (Double Stranded) Antibodieson 08-01-2020 DNA double strand Ab Qn (S) [IU]/mL [facility] Work Phone: Comment on above: REF VALUESNEGATIVE: <= 4 IU/MLEQUIVOCAL: 5- 9 IU/MLPOSITIVE: >=10 IU/ML Blood Urea Nitrogen, Serumon 08-01-2020 Urea nitrogen [Mass/Vol] 21 mg/dL 6 - 23 [facility] Work Phone: C Reactive Protein, Serumon 08-01-2020 CRP [Mass/Vol] 0.46 mg/dL [facility] Work Phone: Comment on above: REF VALUE< 1.00 C3 Complement, Serumon 08-01 Complement C3 [Mass/Vol] 184 mg/dL 87 - 200 [facility] Work Phone: C4 Complement, Serumon 08-01 Complement C4 [Mass/Vol] 19 mg/dL 10 - 50 [facility] Work Phone: Complete Blood Count + Diffe rentialon 08-01-2020 Basophils (Bld) [#/Vol] 0.04 {x10E9/L} See Chaz andrade [facility] Work Phone: Comment on above: Reference Range: 0.0 0 - 0.10 Basophils/100 WBC (Bld) 0.7 % 0.0 - 2.0 M [facility] Work Phone: Eosinophils (Bld) [#/Vol] 0.08 {x10E9/L} See Below [facility] Work Phone: Comment on above: Reference Range: 0.0 0 - 0.70 Eosinophils/100 WBC (Bld) 1.4 % 0.0 - 6.0 [facility] Work Phone: Erythrocyte distribution width (RBC) [Ratio] 13.1 % See Below [facility] Work Phone: Comment on above: Reference Range: 11. 5 - 14.5 Hematocrit (Bld) [Volume fraction] 41.9 % See Below [facility] Work Phone: Comment on above: Reference Range: 36. 0 - 46.0 Hemoglobin (Bld) [Mass/Vol] 13.2 g/dL See Below [facility] Work Phone: Comment on above: Reference Range: 12. 0 - 16.0 Lymphocytes (Bld) [#/Vol] 1.76 {x10E9/L} See Below [facility] Work Phone: Comment on above: Reference Range: 1.2 0 - 4.80 Lymphocytes/100 WBC (Bld) 29.8 % See Below [facility] Work Phone: Comment on above: Reference Range: 13. 0 - 44.0 MCHC (RBC) [Mass/Vol] 31.5 g/dL below low threshold See Below [facility] Work Phone: Comment on above: Reference Range: 32. 0 - 36.0 MCV (RBC) [Entitic vol] 92 fL 80 - 100 M [facility] Work Phone: Monocytes (Bld) [#/Vol] 0.51 {x10E9/L} See Chaz andrade [facility] Work Phone: Comment on above: Reference Range: 0.1 0 - 1.00 Monocytes/100 WBC (Bld) 8.6 % 2.0 - 10.0 M [facility] Work Phone: Neutrophils (Bld) [#/Vol] 3.49 {x10E9/L} See Below [facility] Work Phone: Comment on above: Reference Range: 1.2 0 - 7.70 Neutrophils/100 WBC (Bld) 59.2 % See Below [facility] Work Phone: Comment on above: Reference Range: 40. 0 - 80.0 Platelets (Bld) [#/Vol] 257 {x10E9/L} 150 - 450 -[facility] Work Phone: RBC (Bld) [#/Vol] 4.53 {x10E12/L} See Below [facility] Work Phone: Comment on above: Reference Range: 4.0 0 - 5.20 WBC (Bld) [#/Vol] 5.9 {x10E9/L} 4.4 - 11.3 - [facility] Work Phone: WBC (Bld) [#/Vol] 0.0 {/100_WBC} 0.0-0.0 [employer] [facility] Work Phone: Complete Blood Count + Differential 0.3 % 0.0 - 0.9 [facility] Work Phone: Comment on above: Immature Granulocyte Count (IG) includes promyelocytes, myelocytes and metamyelocytes but does not include bands. Percent differential counts (%) should be interpreted in the context of the absolute cell counts (cells/L). Otheron 08-01-2020 AST With P-5'-P [Catalytic activity/Vol] 37 U/L 9 - 39 [facility] Work Phone: Sedimentation Rate, Erythroc yteon 08-01-2020 ESR (Bld) [Velocity] 18 mm/h 0 - 30 [employer] Work Phone: Total Protein, Urine Spoton 08-01-2020 Creatinine (U) [Mass/Vol] 46.7 mg/dL See Below [employer] [facility] Work Phone: Comment on above: Reference Range: 20. 0 - 320.0 Protein (U) [Mass/Vol] 21 mg/dL 5 - 24 [facility] Work Phone: Protein/Creatinine (U) [Ratio] 0.45 {mg/mg_Creat} above high threshold See Below [employer] [facility] Work Phone: Comment on above: Reference Range: 0.0 0 - 0.17 XR HIP RIGHT 2-3 VIEW W PELV Lisa 04-12-2020 XR HIP RIGHT 2-3 VIEW W PELVIS EXAM DESCRIPTION: XR HIP RIGHT 2-3 VIEW W PELVIS CLINICAL HISTORY: 64 years Female, LUPUS;OTHER REASON COMPARISON: None. TECHNIQUE: AP pelvis with 2 views of the right hip. FINDINGS: Frontal pelvic radiograph shows no evidence of fracture or bone lesion. The sacroiliac joints have a normal appearance. Surgical clips are noted within the pelvis. Normal alignment of the right hip. No joint space narrowing. No sclerotic or lytic changes. No fracture or other bone lesion. No surrounding soft tissue calcifications. IMPRESSION: Normal appearance of the right hip. Electronically signed by: Ananda Haynes MD 04/11/2020 9:50 PM CDT Technologist: PRASHANTH Dictated By: AZEB HAYNES MD Signed By: AZEB HAYNES MD Signed Out: 04/11/20 22:50:26 Normal [facility] ALT - Alanine Aminotransfera se, Serumon 12-14-2019 ALT With P-5'-P [Catalytic activity/Vol] 44 U/L 7 - 45 [facility] Work Phone: Comment on above: Patients treated wit h Sulfasalazine may generate falsely decreased results for ALT. Anti-dsDNA (Double Stranded) Antibodieson 12-14-2019 DNA double strand Ab Qn (S) [IU]/mL [facility] Work Phone: Comment on above: REF VALUESNEGATIVE: <= 4 IU/MLEQUIVOCAL: 5- 9 IU/MLPOSITIVE: >=10 IU/ML Blood Urea Nitrogen, Serumon 12-14-2019 Urea nitrogen [Mass/Vol] 19 mg/dL 6 - 23 [facility] Work Phone: C Reactive Protein, Serumon 12-14-2019 CRP [Mass/Vol] 0.25 mg/dL [facility] Work Phone: Comment on above: REF VALUE< 1.00 C3 Complement, Serumon 12-14 Complement C3 [Mass/Vol] 192 mg/dL 87 - 200 [facility] [facility] Work Phone: C4 Complement, Serumon 12-14 Complement C4 [Mass/Vol] 15 mg/dL 10 - 50 [facility] Work Phone: Complete Blood Count + Diffe rentialon 12-14-2019 Basophils (Bld) [#/Vol] 0.04 {x10E9/L} See Chaz andrade [facility] Work Phone: Comment on above: Reference Range: 0.0 0 - 0.10 Basophils/100 WBC (Bld) 0.6 % 0.0 - 2.0 M [facility] Work Phone: Eosinophils (Bld) [#/Vol] 0.11 {x10E9/L} See Below [facility] Work Phone: Comment on above: Reference Range: 0.0 0 - 0.70 Eosinophils/100 WBC (Bld) 1.5 % 0.0 - 6.0 [facility] Work Phone: Erythrocyte distribution width (RBC) [Ratio] 13.4 % See Below [facility] Work Phone: Comment on above: Reference Range: 11. 5 - 14.5 Hematocrit (Bld) [Volume fraction] 44.0 % See Below [facility] Work Phone: Comment on above: Reference Range: 36. 0 - 46.0 Hemoglobin (Bld) [Mass/Vol] 13.8 g/dL See Below [facility] Work Phone: Comment on above: Reference Range: 12. 0 - 16.0 Lymphocytes (Bld) [#/Vol] 1.85 {x10E9/L} See Below [facility] [facility] Work Phone: Comment on above: Reference Range: 1.2 0 - 4.80 Lymphocytes/100 WBC (Bld) 25.6 % See Below [facility] [facility] Work Phone: Comment on above: Reference Range: 13. 0 - 44.0 MCHC (RBC) [Mass/Vol] 31.4 g/dL below low threshold See Below [employer] [facility] Work Phone: Comment on above: Reference Range: 32. 0 - 36.0 MCV (RBC) [Entitic vol] 91 fL 80 - 100 M [facility] Work Phone: Monocytes (Bld) [#/Vol] 0.57 {x10E9/L} See Chaz andrade [employer] [facility] Work Phone: Comment on above: Reference Range: 0.1 0 - 1.00 Monocytes/100 WBC (Bld) 7.9 % 2.0 - 10.0 M [facility] Work Phone: Neutrophils (Bld) [#/Vol] 4.64 {x10E9/L} See Below [facility] Work Phone: Comment on above: Reference Range: 1.2 0 - 7.70 Neutrophils/100 WBC (Bld) 64.0 % See Below [facility] [facility] Work Phone: Comment on above: Reference Range: 40. 0 - 80.0 Platelets (Bld) [#/Vol] 284 {x10E9/L} 150 - 450 -[facility] Work Phone: RBC (Bld) [#/Vol] 4.85 {x10E12/L} See Below [facility] Work Phone: Comment on above: Reference Range: 4.0 0 - 5.20 WBC (Bld) [#/Vol] 0.0 {/100_WBC} 0.0-0.0 [employer] [facility] Work Phone: WBC (Bld) [#/Vol] 7.2 {x10E9/L} 4.4 - 11.3 [facility] Work Phone: Complete Blood Count + Differential 0.4 % 0.0 - 0.9 [facility] Work Phone: Comment on above: Immature Granulocyte Count (IG) includes promyelocytes, myelocytes and metamyelocytes but does not include bands. Percent differential counts (%) should be interpreted in the context of the absolute cell counts (cells/L). Creatinine, Serumon 12-14-19 20 Creatinine [Mass/Vol] mg/dL >60 [facility] Work Phone: Comment on above: CALCULATIONS OF JUANA MATED GFR ARE PERFORMED USING THE MDRD STUDY EQUATION FOR THE IDMS-TRACEABLE CREATININE METHODS. CLIN CHEM 2007;53:766-72 Creatinine [Mass/Vol] 0.74 mg/dL See Below [employer] [facility] Work Phone: Comment on above: Reference Range: 0.5 0 - 1.05 Otheron 12-14-2019 AST With P-5'-P [Catalytic activity/Vol] 48 U/L above high threshold 9 - 39 [facility] Work Phone: Sedimentation Rate, Erythroc yteon 12-14-2019 ESR (Bld) [Velocity] 23 mm/h 0 - 30 [facility] Work Phone: XR HIP BILAT 3-4 VIEWS W PEL VISon 08-10-2019 XR HIP BILAT 3-4 VIEWS W PELVIS EXAM:BILATERAL HIPS HISTORY: Bilateral atraumatic pain COMPARISON: None available FINDINGS: BONES:Unremarkable. No acute displaced fracture or aggressive osseous lesion JOINTS: The bilateral sacroiliac and hip joints are well imaged and are uncompromised SOFT TISSUES:Unremarkable OTHER:None IMPRESSION: Unremarkable bilateral hip series Electronically signed by: Vilma Robles MD 08/10/2019 1:35 PM CDT Technologist: UZIEL Dictated By: VILMA ROBLES MD Signed By: VILMA ROBLES MD Signed Out: 08/10/19 14:35:45 Normal [facility] Lab Report: Comprehensive Ma divina Profilon 07-29-2017 Albumin mass conc 3.9 g/dL Invalid Interpretation Code 3.4-5.0 [facility] Work Phone: Albumin/Globulin mass ratio 1 {ratio} Invalid Interpretation Code 0.9-2.4 [facility] Work Phone: ALP enzyme act/vol (Bld) 58 U/L Invalid Interpretation Code 45-117 [facility] Work Phone: ALT enzyme act/vol 43 U/L Invalid Interpretation Code 12-78 [facility] Work Phone: Anion gap 4 molar conc 7 Invalid Interpretation Code 5-15 [facility] Work Phone: AST enzyme act/vol 29 U/L Invalid Interpretation Code 15-37 [facility] Work Phone: Bilirubin mass conc 0.20 mg/dL Invalid Interpretation Code 0.20-1.00 [facility] Work Phone: Calcium mass conc 9.5 mg/dL Invalid Interpretation Code 8.5-10.1 [facility] Work Phone: Chloride molar conc 103 mmol/L Invalid Interpretation Code 98-107 [facility] Work Phone: CO2 ppres (BldV) 30.0 mmol/L Invalid Interpretation Code 21.0-32.0 [facility] Work Phone: Creatinine mass conc 1.00 mg/dL Invalid Interpretation Code 0.55-1.02 [facility] Work Phone: EST GFR - AA 72 mL/min Invalid Interpretation Code >60 [facility] Work Phone: GFR/1.73 sq M predicted among non-blacks MDRD vol rate/area (S/P/Bld) 60 mL/min/{1.73_m2} Invalid Interpretation Code >60 [facility] Work Phone: Globulin Calculated mass conc (S) 3.8 g/dL High 2.3-3.5 [facility] Work Phone: Glucose mass conc 112 mg/dL High 70-110 [facility] Work Phone: Potassium molar conc 3.8 mmol/L Invalid Interpretation Code 3.5-5.1 [facility] Work Phone: Protein mass conc 7.7 g/dL Invalid Interpretation Code 6.4-8.2 [facility] Work Phone: Sodium molar conc 140 mmol/L Invalid Interpretation Code 136-145 [facility] Work Phone: Urea nitrogen mass conc 20 mg/dL High 7-18 [facility] Work Phone: Urea nitrogen/Creatinine mass ratio 20.0 RATIO Invalid Interpretation Code 10-20 [facility] Work Phone: Lab Report: Hemoglobin A1con 07-29-2017 Hemoglobin A1c/Hemoglobin.total mass fraction (Bld) 6.7 % High 4.2-6.3 [facility] Work Phone: Lab Report: Lipid Profileon 07-29-2017 Cholesterol in HDL mass conc 53 mg/dL Invalid Interpretation Code [facility] Work Phone: Cholesterol in LDL mass conc 75 mg/dL Invalid Interpretation Code 0-130 [facility] Work Phone: Cholesterol mass conc 169 mg/dL Invalid Interpretation Code 200 [facility] Work Phone: Lipoprotein.pre-beta mass conc 41 mg/dL High 5-40 [facility] Work Phone: Triglyceride mass conc 207 mg/dL High [facility] Work Phone: Lab Report: Thyroid Stim Hor lexii (TSH)on 07-29-2017 Thyrotropin Qn 1.43 u[iU]/mL Invalid Interpretation Code 0.358-3.74 [facility] Work Phone: Office Visit: Diabetes follo w upon 07-29-2017 Protein mass conc Done Invalid Interpretation Code [facility] Work Phone: Office Visiton 04-15-2017 Protein mass conc Done [facility] Work Phone: External Other: Preferred Me thod of Contacton 02-05-2017 methcontact phone Invalid Interpretation Code [facility] Work Phone: Office Visit: Diabetes type 2on 01-08-2017 Adult depression screening assessment Adolescent depression screening assessment Invalid Interpretation Code [facility] Work Phone: Tobacco smoking status NHIS Never Invalid Interpretation Code [facility] Work Phone: Tobacco smoking status NHIS Never smoker Invalid Interpretation Code [facility] Work Phone: Office Visit: Diabetes type 2on 11-26-2016 Cholesterol in HDL mass conc 59 mg/dL [facility] Work Phone: Cholesterol in LDL mass conc 72 mg/dL [facility] [facility] Work Phone: Cholesterol mass conc 164 mg/dL [facility] Work Phone: Hemoglobin A1c/Hemoglobin.total mass fraction (Bld) 6.1 % [facility] Work Phone: Triglyceride mass conc 164 mg/dL Invalid Interpretation Code [facility] Work Phone: Office Visit: Diabetes type 2on 04-30-2016 Protein mass conc Adenomatous Polyp Invalid Interpretation Code [facility] Work Phone: Office Visit: Diabetes type 2on 02-13-2016 General categories Cyto stain Interp (Cervical or vaginal smear or scraping) Normal Invalid Interpretation Code [facility] Work Phone: MG Breast screening Normal Bilateral Invalid Interpretation Code [facility] Work Phone: Stool lactoferrin detection by immunoassay Lactoferrin IA Ql (Stl) [facility] Work Phone: Vital Signs Date Time Vital Sign Value Performing Clinician Facility 04-27-2025 15:57-0400 Body height 165.1 cm Genie Godinez MD Work Phone: [facility] 04-27-2025 15:57-0400 Body mass index (BMI) [Ratio] 50.64 kg/m2 Genie Godinez MD Work Phone: [facility] 04-27-2025 15:57-0400 Body temperature 97.9 [degF] Genie Godinez MD Work Phone: [facility] 04-27-2025 15:57-0400 Body weight 138.03 kg Genie Godinez MD Work Phone: [facility] 04-27-2025 15:57-0400 Diastolic blood pressure 77 mm[Hg] Genie Godinez MD Work Phone: [facility] 04-27-2025 15:57-0400 Heart rate 85 /min Genie Godinez MD Work Phone: [facility] 04-27-2025 15:57-0400 SaO2% (BldA) [Mass fraction] 95 % Genie Godinez MD Work Phone: [facility] 04-27-2025 15:57-0400 Systolic blood pressure 160 mm[Hg] Genie Godinez MD Work Phone: [facility] 04-10-2025 13:04-0400 Body height 165.[address] Ron Duenas MD Work Phone: [facility] 04-10-2025 13:04-0400 Body weight 137.[address] Ron Duenas MD Work Phone: [facility] 02-16-2025 14:23-0400 Body mass index (BMI) [Ratio] 50.2 kg/m2 Dr. Ron Duenas MD Work Phone: [facility] 02-16-2025 14:23-0400 Body weight 136.[address] Ron Duenas MD Work Phone: [facility] 02-16-2025 14:23-0400 Diastolic blood pressure 83 mm[Hg] Dr. Ron Duenas MD Work Phone: [facility] 02-16-2025 14:23-0400 Heart rate 74 /min Dr. Ron Duenas MD Work Phone: [facility] 02-16-2025 14:23-0400 SaO2% (BldA) [Mass fraction] 95 % Dr. Ron Duenas MD Work Phone: [facility] 02-16-2025 14:23-0400 Systolic blood pressure 137 mm[Hg] Dr. Ron Duenas MD Work Phone: [facility] 12-19-2024 13:32-0500 Diastolic blood pressure 84 mm[Hg] Brenda Suppan EDUCATION OFFICER.APPEALS BOARD REFEREE Work Phone: [facility] 12-19-2024 13:32-0500 Systolic blood pressure 130 mm[Hg] Brenda Suppan EDUCATION OFFICER.APPEALS BOARD REFEREE Work Phone: [facility] 12-19-2024 12:56-0500 Body mass index (BMI) [Ratio] 51.37 kg/m2 Brenda Suppan EDUCATION OFFICER.APPEALS BOARD REFEREE Work Phone: [facility] 12-19-2024 12:56-0500 Body temperature 99.19 [degF] Brenda Suppan EDUCATION OFFICER.APPEALS BOARD REFEREE Work Phone: [facility] 12-19-2024 12:56-0500 Body weight 133.81 kg Brenda Suppan EDUCATION OFFICER.APPEALS BOARD REFEREE Work Phone: [facility] 12-19-2024 12:56-0500 Heart rate 69 /min Brenda Suppan EDUCATION OFFICER.APPEALS BOARD REFEREE Work Phone: [facility] 12-19-2024 12:56-0500 SaO2% (BldA) [Mass fraction] 95 % Brenda Suppan EDUCATION OFFICER.APPEALS BOARD REFEREE Work Phone: [facility] 11-21-2024 10:45-0500 Body mass index (BMI) [Ratio] 52.41 kg/m2 Brenda Suppan EDUCATION OFFICER.APPEALS BOARD REFEREE Work Phone: [facility] 11-21-2024 10:45-0500 Body weight 136.53 kg Brenda Suppan EDUCATION OFFICER.APPEALS BOARD REFEREE Work Phone: [facility] 11-21-2024 10:45-0500 Diastolic blood pressure 82 mm[Hg] Brenda Suppan EDUCATION OFFICER.APPEALS BOARD REFEREE Work Phone: [facility] 11-21-2024 10:45-0500 Heart rate 73 /min Brenda Suppan EDUCATION OFFICER.APPEALS BOARD REFEREE Work Phone: [facility] 11-21-2024 10:45-0500 SaO2% (BldA) [Mass fraction] 95 % Brenda Suppan EDUCATION OFFICER.APPEALS BOARD REFEREE Work Phone: [facility] 11-21-2024 10:45-0500 Systolic blood pressure 152 mm[Hg] Brenda Suppan EDUCATION OFFICER.APPEALS BOARD REFEREE Work Phone: [facility] 11-17-2024 15:01-0500 Body temperature 98.3 [degF] Dr. Ron Duenas MD Work Phone: 6(964)764-950252 [place] [address] 11-17-2024 15:01-0500 Diastolic blood pressure 63 mm[Hg] Dr. Ron Duenas MD Work Phone: 3(458)410-658752 [place] [address] 11-17-2024 15:01-0500 Heart rate 58 /min Dr. Ron Duenas MD Work Phone: 1(993)791-668652 [place] [address] 11-17-2024 15:01-0500 Respiratory rate 16 /min Dr. Ron Duenas MD Work Phone: 0(708)391-493452 [place] [address] 11-17-2024 15:01-0500 SaO2% (BldA) [Mass fraction] 96 % Dr. Ron Duenas MD Work Phone: 3(693)802-804752 [place] [address] 11-17-2024 15:01-0500 Systolic blood pressure 147 mm[Hg] Dr. Ron Duenas MD Work Phone: 4(431)275-756452 [place] [address] 11-17-2024 11:34-0500 Body height 165.[address] Ron Duenas MD Work Phone: 1(976)017-055152 [place] [address] 11-17-2024 11:34-0500 Body mass index (BMI) [Ratio] 50.4 kg/m2 Dr. Ron Duenas MD Work Phone: 0(084)503-571352 [place] [address] 11-17-2024 11:34-0500 Body weight 137.[address] Ron Duenas MD Work Phone: 2(937)968-884852 [place] [address] 09-22-2024 11:23-0500 Body height 161.4 cm Agnieszka Bristol EDUCATION OFFICER.APPEALS BOARD REFEREE Work Phone: 7(601)323-012882 [place] [address] 09-22-2024 11:23-0500 Body mass index (BMI) [Ratio] 53.81 kg/m2 Agnieszka Bristol EDUCATION OFFICER.APPEALS BOARD REFEREE Work Phone: 0(187)571-593382 [place] [address] 09-22-2024 11:23-0500 Body weight 140.16 kg Agnieszka Bristol EDUCATION OFFICER.APPEALS BOARD REFEREE Work Phone: 5(456)175-314682 [place] [address] 09-22-2024 11:23-0500 Diastolic blood pressure 76 mm[Hg] Agnieszka Bristol EDUCATION OFFICER.APPEALS BOARD REFEREE Work Phone: 3(944)056-567582 [place] [address] 09-22-2024 11:23-0500 Systolic blood pressure 128 mm[Hg] Agnieszka Jill EDUCATION OFFICER.APPEALS BOARD REFEREE Work Phone: 5(840)859-399873 [place] [address] 08-10-2024 07:59-0400 Body mass index (BMI) [Ratio] 51 kg/m2 Dr. Ron Duenas MD Work Phone: 0(854)737-881352 [place] [address] 08-10-2024 07:59-0400 Body weight 139.[address] Ron Duenas MD Work Phone: 5(424)840-649852 [place] [address] 08-10-2024 07:59-0400 Diastolic blood pressure 96 mm[Hg] Dr. Ron Duenas MD Work Phone: 6(231)671-887952 [place] [address] 08-10-2024 07:59-0400 Heart rate 74 /min Dr. Ron Duenas MD Work Phone: 7(096)850-891652 [place] [address] 08-10-2024 07:59-0400 SaO2% (BldA) [Mass fraction] 93 % Dr. Ron Duenas MD Work Phone: 8(789)010-001152 [place] [address] 08-10-2024 07:59-0400 Systolic blood pressure 180 mm[Hg] Dr. Ron Duenas MD Work Phone: [facility] 07-29-2024 14:53-0400 Body mass index (BMI) [Ratio] 50.06 kg/m2 Terrance Simons MD Work Phone: [facility] 07-29-2024 14:53-0400 Body weight 137.1 kg Terrance Simons MD Work Phone: [facility] 07-29-2024 14:53-0400 Diastolic blood pressure 78 mm[Hg] Terrance Simons MD Work Phone: [facility] 07-29-2024 14:53-0400 Heart rate 77 /min Terrance Simons MD Work Phone: [facility] 07-29-2024 14:53-0400 Respiratory rate 18 /min Terrance Simons MD Work Phone: [facility] 07-29-2024 14:53-0400 SaO2% (BldA) [Mass fraction] 95 % Terrance Simons MD Work Phone: [facility] 07-29-2024 14:53-0400 Systolic blood pressure 152 mm[Hg] Terrance Simons MD Work Phone: [facility] 06-17-2024 10:37-0400 Body mass index (BMI) [Ratio] 50.78 kg/m2 Brenda Suppan EDUCATION OFFICER.APPEALS BOARD REFEREE Work Phone: [facility] 06-17-2024 10:37-0400 Body weight 139.07 kg Brenda Suppan EDUCATION OFFICER.APPEALS BOARD REFEREE Work Phone: [facility] 06-17-2024 10:37-0400 Diastolic blood pressure 84 mm[Hg] Brenda Suppan EDUCATION OFFICER.APPEALS BOARD REFEREE Work Phone: [facility] 06-17-2024 10:37-0400 Heart rate 67 /min Brenda Suppan EDUCATION OFFICER.APPEALS BOARD REFEREE Work Phone: [facility] 06-17-2024 10:37-0400 Respiratory rate 16 /min Brenda Suppan EDUCATION OFFICER.APPEALS BOARD REFEREE Work Phone: [facility] 06-17-2024 10:37-0400 SaO2% (BldA) [Mass fraction] 95 % Brenda Toth EDUCATION OFFICER.APPEALS BOARD REFEREE Work Phone: [facility] 06-17-2024 10:37-0400 Systolic blood pressure 164 mm[Hg] Brenda Toth EDUCATION OFFICER.APPEALS BOARD REFEREE Work Phone: [facility] 05-20-2024 10:39-0400 Body mass index (BMI) [Ratio] 50.18 kg/m2 Ron Duenas MD Work Phone: [facility] 05-20-2024 10:39-0400 Body weight 137.44 kg Ron Duenas MD Work Phone: [facility] 05-20-2024 10:39-0400 Diastolic blood pressure 94 mm[Hg] Ron Duenas MD Work Phone: [facility] 05-20-2024 10:39-0400 Heart rate 71 /min Ron Duenas MD Work Phone: [facility] 05-20-2024 10:39-0400 SaO2% (BldA) [Mass fraction] 94 % Ron Duenas MD Work Phone: [facility] 05-20-2024 10:39-0400 Systolic blood pressure 142 mm[Hg] Ron Duenas MD Work Phone: [facility] 02-16-2024 11:23-0400 Body height 165.1 cm Genie Godinez MD Work Phone: [facility] 02-16-2024 11:23-0400 Body mass index (BMI) [Ratio] 49.72 kg/m2 Genie Godinez MD Work Phone: [facility] 02-16-2024 11:23-0400 Body temperature 97 [degF] Genie Godinez MD Work Phone: [facility] 02-16-2024 11:23-0400 Body weight 135.53 kg Genie Godinez MD Work Phone: [facility] 02-16-2024 11:23-0400 Diastolic blood pressure 77 mm[Hg] Genie Godinez MD Work Phone: [facility] 02-16-2024 11:23-0400 Heart rate 62 /min Genie Godinez MD Work Phone: [facility] 02-16-2024 11:23-0400 SaO2% (BldA) [Mass fraction] 93 % Genie Godinez MD Work Phone: [facility] 02-16-2024 11:23-0400 Systolic blood pressure 177 mm[Hg] Genie Godinez MD Work Phone: [facility] 12-30-2023 10:41-0400 Diastolic blood pressure 77 mm[Hg] Mel Haagen EDUCATION OFFICER.APPEALS BOARD REFEREE Work Phone: [facility] 12-30-2023 10:41-0400 Heart rate 68 /min Mel Haagen EDUCATION OFFICER.APPEALS BOARD REFEREE Work Phone: [facility] 12-30-2023 10:41-0400 Systolic blood pressure 172 mm[Hg] Mel Haagen EDUCATION OFFICER.APPEALS BOARD REFEREE Work Phone: [facility] 12-30-2023 10:25-0400 Body height 165.5 cm Mel Haagen EDUCATION OFFICER.APPEALS BOARD REFEREE Work Phone: [facility] 12-30-2023 10:25-0400 Body weight 136.99 kg Mel Haagen EDUCATION OFFICER.APPEALS BOARD REFEREE Work Phone: [facility] 12-30-2023 10:25-0400 Respiratory rate 16 /min Mel Haagen EDUCATION OFFICER.APPEALS BOARD REFEREE Work Phone: [facility] 12-30-2023 10:25-0400 SaO2% (BldA) [Mass fraction] 92 % Mel Haagen EDUCATION OFFICER.APPEALS BOARD REFEREE Work Phone: [facility] 12-09-2023 09:06-0500 Body height 165.[address] Ron Duenas Work Phone: 0(989)188-205852 [place] [address] 12-09-2023 09:06-0500 Body mass index (BMI) [Ratio] 51.2 kg/m2 Dr. Ron Duenas Work Phone: 4(182)989-739452 [place] [address] 12-09-2023 09:06-0500 Body temperature 98.6 [degF] Dr. Ron Duenas Work Phone: 7(593)098-722452 [place] [address] 12-09-2023 09:06-0500 Body weight 139.[address] Ron Duenas Work Phone: 6(028)214-071352 [place] [address] 12-09-2023 09:06-0500 Diastolic blood pressure 78 mm[Hg] Dr. Ron Duenas Work Phone: 2(095)555-381652 [place] [address] 12-09-2023 09:06-0500 Heart rate 84 /min Dr. Ron Duenas Work Phone: 5(544)024-672452 [place] [address] 12-09-2023 09:06-0500 Respiratory rate 18 /min Dr. Ron Duenas Work Phone: 6(820)520-103652 [place] [address] 12-09-2023 09:06-0500 SaO2% (BldA) [Mass fraction] 96 % Dr. Ron Duenas Work Phone: 0(790)158-422452 [place] [address] 12-09-2023 09:06-0500 Systolic blood pressure 176 mm[Hg] Dr. Ron Duenas Work Phone: 8(206)036-227352 [place] [address] 12-04-2023 11:00-0500 Body mass index (BMI) [Ratio] 50.7 kg/m2 Dr. Ron Duenas Work Phone: 3(850)026-233952 [place] [address] 12-04-2023 11:00-0500 Body weight 138.[address] Ron Duenas Work Phone: 7(727)008-335052 [place] [address] 12-04-2023 11:00-0500 Diastolic blood pressure 80 mm[Hg] Dr. Ron Duenas Work Phone: 5(185)279-345552 [place] [address] 12-04-2023 11:00-0500 Heart rate 69 /min Dr. Ron Duenas Work Phone: [facility] 12-04-2023 11:00-0500 SaO2% (BldA) [Mass fraction] 93 % Dr. Ron Duenas Work Phone: [facility] 12-04-2023 11:00-0500 Systolic blood pressure 177 mm[Hg] Dr. Ron Duenas Work Phone: [facility] 11-20-2023 14:26-0500 Diastolic blood pressure 82 mm[Hg] Ron Duenas MD Work Phone: [facility] 11-20-2023 14:26-0500 Systolic blood pressure 132 mm[Hg] Ron Duenas MD Work Phone: [facility] 11-20-2023 14:04-0500 Body height 161.3 cm Ron Duenas MD Work Phone: [facility] 11-20-2023 14:04-0500 Body weight 139.71 kg Ron Duenas MD Work Phone: [facility] 11-20-2023 14:04-0500 Heart rate 76 /min Ron Duenas MD Work Phone: [facility] 11-20-2023 14:04-0500 SaO2% (BldA) [Mass fraction] 96 % Ron Duenas MD Work Phone: [facility] 09-24-2023 08:52-0500 Body temperature 97.39 [degF] Krislyn Aberegg PA Work Phone: [facility] 09-24-2023 08:52-0500 Body weight 141.98 kg Krislyn Aberegg PA Work Phone: [facility] 09-24-2023 08:52-0500 Diastolic blood pressure 82 mm[Hg] Krislyn Aberegg PA Work Phone: [facility] 09-24-2023 08:52-0500 Heart rate 73 /min Krislyn Aberegg PA Work Phone: [facility] 12-07-2023 08:52-0500 Respiratory rate 18 /min Krislyn Aberegg PA Work Phone: [facility] 09-24-2023 08:52-0500 SaO2% (BldA) [Mass fraction] 95 % Krislyn Aberegg PA Work Phone: [facility] 09-24-2023 08:52-0500 Systolic blood pressure 144 mm[Hg] Krislyn Aberegg PA Work Phone: [facility] 09-17-2023 15:16-0500 Diastolic blood pressure 84 mm[Hg] NA Felix PA-C Work Phone: [facility] 09-17-2023 15:16-0500 Heart rate 75 /min NA Felix PA-C Work Phone: [facility] 09-17-2023 15:16-0500 Systolic blood pressure 179 mm[Hg] NA Felix PA-C Work Phone: [facility] 09-17-2023 15:13-0500 Body weight 141.98 kg NA Felix PA-C Work Phone: [facility] 09-17-2023 15:13-0500 Respiratory rate 16 /min NA Felix PA-C Work Phone: [facility] 09-17-2023 15:13-0500 SaO2% (BldA) [Mass fraction] 98 % NA Felix PA-C Work Phone: [facility] 09-16-2023 10:02-0500 Body height 165.[address] Ron Duenas Work Phone: [facility] 09-16-2023 10:02-0500 Body mass index (BMI) [Ratio] 52.5 kg/m2 Dr. Ron Duenas Work Phone: [facility] 09-16-2023 10:02-0500 Body weight 143.[address] Ron Duenas Work Phone: [facility] 09-16-2023 10:02-0500 Diastolic blood pressure 95 mm[Hg] Dr. Ron Duenas Work Phone: [facility] 09-16-2023 10:02-0500 Heart rate 71 /min Dr. Ron Duenas Work Phone: [facility] 09-16-2023 10:02-0500 SaO2% (BldA) [Mass fraction] 93 % Dr. Ron Duenas Work Phone: [facility] 09-16-2023 10:02-0500 Systolic blood pressure 194 mm[Hg] Dr. Ron Duenas Work Phone: [facility] 08-20-2023 13:40-0400 Body height 165.1 cm Genie Godinez MD Work Phone: 4(516)381-100986 [place] [address] 08-20-2023 13:40-0400 Body mass index (BMI) [Ratio] 52.55 kg/m2 Genie Godinez MD Work Phone: 5(137)077-216586 [place] [address] 08-20-2023 13:40-0400 Body temperature 96.8 [degF] Genie Godinez MD Work Phone: 7(318)170-530386 [place] [address] 08-20-2023 13:40-0400 Body weight 143.25 kg Genie Godinez MD Work Phone: [facility] 08-20-2023 13:40-0400 Diastolic blood pressure 74 mm[Hg] Genie Godinez MD Work Phone: 9(645)713-120286 [place] [address] 08-20-2023 13:40-0400 Heart rate 72 /min Genie Godinez MD Work Phone: [facility] 08-20-2023 13:40-0400 Systolic blood pressure 156 mm[Hg] Genie Godinez MD Work Phone: [facility] 08-17-2023 13:09-0400 Body height 161.3 cm Agnieszka Melchor APRN.CNP Work Phone: [facility] 08-17-2023 13:09-0400 Body weight 140.62 kg Agnieszka Jill EDUCATION OFFICER.APPEALS BOARD REFEREE Work Phone: [facility] 08-17-2023 13:09-0400 Diastolic blood pressure 80 mm[Hg] Agnieszka Jill EDUCATION OFFICER.APPEALS BOARD REFEREE Work Phone: [facility] 08-17-2023 13:09-0400 Systolic blood pressure 170 mm[Hg] Agnieszka Bristol EDUCATION OFFICER.APPEALS BOARD REFEREE Work Phone: [facility] 05-19-2023 14:23-0400 Body height 165.1 cm Ron Duenas MD Work Phone: [facility] 05-19-2023 14:23-0400 Body weight 140.52 kg Ron Duenas MD Work Phone: [facility] 05-19-2023 14:23-0400 Diastolic blood pressure 78 mm[Hg] Ron Duenas MD Work Phone: [facility] 05-19-2023 14:23-0400 Heart rate 70 /min Ron Duenas MD Work Phone: [facility] 05-19-2023 14:23-0400 SaO2% (BldA) [Mass fraction] 98 % Ron Duenas MD Work Phone: [facility] 05-19-2023 14:23-0400 Systolic blood pressure 126 mm[Hg] Ron Duenas MD Work Phone: [facility] 02-19-2023 15:04-0400 Body height 165.1 cm Ron Duenas Work Phone: [employer] [facility] Work Phone: 02-19-2023 15:04-0400 Body mass index (BMI) [Ratio] 51.11 kg/m2 Ron Duenas Work Phone: [employer] [facility] Work Phone: 02-19-2023 15:04-0400 Body surface area Derived from formula 2.37 m2 Ron Duenas Work Phone: [facility] Work Phone: 02-19-2023 15:04-0400 Body temperature 97.3 [degF] Ron Duenas Work Phone: [employer] [facility] Work Phone: 02-19-2023 15:04-0400 Body weight 139.31 kg Ron Duenas Work Phone: [facility] Work Phone: 02-19-2023 15:04-0400 Diastolic blood pressure 82 mm[Hg] Ron Duenas Work Phone: [facility] Work Phone: 02-19-2023 15:04-0400 Heart rate 78 /min Ron Duenas Work Phone: [employer] [facility] Work Phone: 02-19-2023 15:04-0400 Respiratory rate 18 /min Ron Duenas Work Phone: [employer] [facility] Work Phone: 02-19-2023 15:04-0400 SaO2% (BldA) [Mass fraction] 96 % Ron Duenas Work Phone: [facility] Work Phone: 02-19-2023 15:04-0400 Systolic blood pressure 168 mm[Hg] Ron Eng Yulissa Work Phone: [employer] [facility] Work Phone: 12-18-2022 11:43-0500 Body height 165.[address] Ron Duenas Work Phone: [facility] 12-18-2022 11:43-0500 Body weight 140.[address] Ron Duenas Work Phone: [facility] 12-17-2022 10:54-0500 Body height 165.1 cm Mel Haagen EDUCATION OFFICER.APPEALS BOARD REFEREE Work Phone: [facility] 12-17-2022 10:54-0500 Body weight 140.62 kg Mel Haagen EDUCATION OFFICER.APPEALS BOARD REFEREE Work Phone: [facility] 12-17-2022 10:54-0500 Diastolic blood pressure 80 mm[Hg] Mel Haagen EDUCATION OFFICER.APPEALS BOARD REFEREE Work Phone: [facility] 12-17-2022 10:54-0500 Heart rate 64 /min Mel Haagen EDUCATION OFFICER.APPEALS BOARD REFEREE Work Phone: [facility] 12-17-2022 10:54-0500 Respiratory rate 16 /min Mel Haagen EDUCATION OFFICER.APPEALS BOARD REFEREE Work Phone: [facility] 12-17-2022 10:54-0500 Systolic blood pressure 138 mm[Hg] Mel Camarilloagen EDUCATION OFFICER.APPEALS BOARD REFEREE Work Phone: [facility] 12-10-2022 09:09-0500 Body mass index (BMI) [Ratio] 51.6 kg/m2 Dr. Ron Duenas Work Phone: [facility] 12-10-2022 09:09-0500 Body temperature 94.7 [degF] Dr. Ron Duenas Work Phone: [facility] 12-10-2022 09:09-0500 Body weight 140.[address] Ron Duenas Work Phone: [facility] 12-10-2022 09:09-0500 Diastolic blood pressure 80 mm[Hg] Dr. Ron Duenas Work Phone: [facility] 12-10-2022 09:09-0500 Heart rate 58 /min Dr. Ron Duenas Work Phone: [facility] 12-10-2022 09:09-0500 Respiratory rate 20 /min Dr. Ron Duenas Work Phone: [facility] 12-10-2022 09:09-0500 SaO2% (BldA) [Mass fraction] 93 % Dr. Ron Duenas Work Phone: 3(381)480-214352 [place] [address] 12-10-2022 09:09-0500 Systolic blood pressure 158 mm[Hg] Dr. Ron Duenas Work Phone: 7(939)464-739252 [place] [address] 11-07-2022 09:01-0500 Body height 165.[address] Ron Duenas Work Phone: 9(387)354-731452 [place] [address] 11-07-2022 09:01-0500 Body mass index (BMI) [Ratio] 52.4 kg/m2 Dr. Ron Duenas Work Phone: 1(346)083-079652 [place] [address] 11-07-2022 09:01-0500 Body weight 142.[address] Ron Duenas Work Phone: 1(767)704-485852 [place] [address] 11-07-2022 09:01-0500 Diastolic blood pressure 74 mm[Hg] Dr. Ron Duenas Work Phone: 6(536)380-653352 [place] [address] 11-07-2022 09:01-0500 Heart rate 71 /min Dr. Ron Duenas Work Phone: 1(520)324-489852 [place] [address] 11-07-2022 09:01-0500 SaO2% (BldA) [Mass fraction] 93 % Dr. Ron Duenas Work Phone: 6(412)311-501052 [place] [address] 11-07-2022 09:01-0500 Systolic blood pressure 174 mm[Hg] Dr. Ron Duenas Work Phone: 0(204)193-650752 [place] [address] 10-22-2022 08:57-0500 Body temperature 97.2 [degF] Dr. Ron Duenas Work Phone: 5(008)303-990352 [place] [address] 10-22-2022 08:57-0500 Diastolic blood pressure 64 mm[Hg] Dr. Ron Duenas Work Phone: 0(021)418-558052 [place] [address] 10-22-2022 08:57-0500 Heart rate 62 /min Dr. Ron Duenas Work Phone: [phone] [place] [address] 10-22-2022 08:57-0500 Respiratory rate 16 /min Dr. Ron Duenas Work Phone: [phone] [place] [address] 10-22-2022 08:57-0500 SaO2% (BldA) [Mass fraction] 97 % Dr. Ron Duenas Work Phone: [facility] 10-22-2022 08:57-0500 Systolic blood pressure 146 mm[Hg] Dr. Ron Duenas Work Phone: [facility] 10-22-2022 07:02-0500 Body height 165.[address] Ron Duenas Work Phone: [facility] Work Phone: 10-22-2022 07:02-0500 Body mass index (BMI) [Ratio] 51.7 kg/m2 Dr. Ron Duenas Work Phone: [facility] 10-22-2022 07:02-0500 Body weight 141.[address] Ron Duenas Work Phone: [facility] 08-21-2022 14:56-0400 Body height 165.1 cm Ron Duenas Work Phone: [employer] [facility] Work Phone: 08-21-2022 14:56-0400 Body mass index (BMI) [Ratio] 52.78 kg/m2 Ron Duenas Work Phone: [employer] [facility] Work Phone: 08-21-2022 14:56-0400 Body surface area Derived from formula 2.41 m2 Ron Duenas Work Phone: [employer] [facility] Work Phone: 08-21-2022 14:56-0400 Body temperature 97.2 [degF] Ron Duenas Work Phone: [employer] [facility] Work Phone: 08-21-2022 14:56-0400 Body weight 143.88 kg Ron Duenas Work Phone: [employer] [facility] Work Phone: 08-21-2022 14:56-0400 Diastolic blood pressure 70 mm[Hg] Ron Duenas Work Phone: [employer] [facility] Work Phone: 08-21-2022 14:56-0400 Heart rate 74 /min Ron Duenas Work Phone: [employer] [facility] Work Phone: 08-21-2022 14:56-0400 Respiratory rate 18 /min Ron Duenas Work Phone: [employer] [facility] Work Phone: 08-21-2022 14:56-0400 SaO2% (BldA) [Mass fraction] 95 % Ron Duenas Work Phone: [employer] [facility] Work Phone: 08-21-2022 14:56-0400 Systolic blood pressure 138 mm[Hg] Ron Velasquez Yulissa Work Phone: [employer] [facility] Work Phone: 08-21-2022 14:56-0400 6 1 Ron Duenas Work Phone: [employer] [facility] Work Phone: Comment on above: [employer] 08-19-2022 15:00-0400 Body height 162.[address] Ron Duenas Work Phone: [facility] Work Phone: 08-19-2022 15:00-0400 Body mass index (BMI) [Ratio] 54.2 kg/m2 Dr. Ron Duenas Work Phone: [facility] 08-19-2022 15:00-0400 Body weight 143.[address] Ron Duenas Work Phone: [facility] 08-19-2022 15:00-0400 Diastolic blood pressure 90 mm[Hg] Dr. Ron Duenas Work Phone: [facility] 08-19-2022 15:00-0400 Heart rate 65 /min Dr. Ron Duenas Work Phone: [facility] 08-19-2022 15:00-0400 SaO2% (BldA) [Mass fraction] 94 % Dr. Ron Duenas Work Phone: [facility] 08-19-2022 15:00-0400 Systolic blood pressure 194 mm[Hg] Dr. Ron Duenas Work Phone: [facility] 08-14-2022 13:18-0400 Body height 162 cm Agnieszka Bristol EDUCATION OFFICER.APPEALS BOARD REFEREE Work Phone: [facility] 08-14-2022 13:18-0400 Body weight 140.62 kg Agnieszka Jill EDUCATION OFFICER.APPEALS BOARD REFEREE Work Phone: [facility] 08-14-2022 13:18-0400 Diastolic blood pressure 76 mm[Hg] Agnieszka Bristol EDUCATION OFFICER.APPEALS BOARD REFEREE Work Phone: [facility] 08-14-2022 13:18-0400 Systolic blood pressure 144 mm[Hg] Agnieszka Jill EDUCATION OFFICER.APPEALS BOARD REFEREE Work Phone: [facility] 06-11-2022 10:18-0400 Body mass index (BMI) [Ratio] 54.3 kg/m2 Dr. Ron Duenas Work Phone: [facility] Work Phone: 06-11-2022 10:18-0400 Body temperature 95.6 [degF] Dr. Ron Duenas Work Phone: [facility] Work Phone: 06-11-2022 10:18-0400 Body weight 143.[address] Ron Duenas Work Phone: [facility] Work Phone: 06-11-2022 10:18-0400 Diastolic blood pressure 79 mm[Hg] Dr. Ron Duenas Work Phone: [facility] Work Phone: 06-11-2022 10:18-0400 Heart rate 63 /min Dr. Ron Duenas Work Phone: [facility] Work Phone: 06-11-2022 10:18-0400 Respiratory rate 18 /min Dr. Ron Duenas Work Phone: [facility] Work Phone: 06-11-2022 10:18-0400 SaO2% (BldA) [Mass fraction] 93 % Dr. Ron Duenas Work Phone: [facility] Work Phone: 06-11-2022 10:18-0400 Systolic blood pressure 182 mm[Hg] Dr. Ron Duenas Work Phone: [facility] Work Phone: 05-13-2022 07:03-0400 Body height 162.[address] Ron Duenas Work Phone: [facility] Work Phone: 05-13-2022 07:03-0400 Body weight 142.[address] Ron Duenas Work Phone: [facility] Work Phone: 05-12-2022 15:31-0400 Body mass index (BMI) [Ratio] 53.8 kg/m2 Dr. Ron Duenas Work Phone: [facility] Work Phone: 05-07-2022 10:05-0400 Body mass index (BMI) [Ratio] 53.8 kg/m2 Dr. Ron Duenas Work Phone: [facility] Work Phone: 05-07-2022 10:05-0400 Body weight 142.[address] Ron Duenas Work Phone: [facility] Work Phone: 05-07-2022 10:05-0400 Diastolic blood pressure 89 mm[Hg] Dr. Ron Duenas Work Phone: [facility] Work Phone: 05-07-2022 10:05-0400 Heart rate 76 /min Dr. Ron Duenas Work Phone: [facility] Work Phone: 05-07-2022 10:05-0400 Respiratory rate 16 /min Dr. Ron Duenas Work Phone: [facility] Work Phone: 05-07-2022 10:05-0400 SaO2% (BldA) [Mass fraction] 97 % Dr. Ron Duenas Work Phone: [facility] Work Phone: 05-07-2022 10:05-0400 Systolic blood pressure 188 mm[Hg] Dr. Ron Duenas Work Phone: [facility] Work Phone: 03-12-2022 11:03-0400 Diastolic blood pressure 80 mm[Hg] Ron Duenas MD Work Phone: [facility] 03-12-2022 11:03-0400 Systolic blood pressure 136 mm[Hg] Ron Duenas MD Work Phone: [facility] 03-12-2022 10:22-0400 Body weight 141.52 kg Ron Duenas MD Work Phone: [facility] 03-12-2022 10:22-0400 Heart rate 68 /min Ron Duenas MD Work Phone: [facility] 12-05-2021 09:23-0500 Body height 162.[address] Valentin Arredondo Work Phone: [facility] Work Phone: 12-05-2021 09:23-0500 Body mass index (BMI) [Ratio] 52.5 kg/m2 Dr. Valentin Arredondo Work Phone: [facility] Work Phone: 12-05-2021 09:23-0500 Body temperature 97 [degF] Dr. Valentin Arredondo Work Phone: [facility] Work Phone: 12-05-2021 09:23-0500 Body weight 138.[address] Valentin Arredondo Work Phone: [facility] Work Phone: 12-05-2021 09:23-0500 Diastolic blood pressure 80 mm[Hg] Dr. Valentin Arredondo Work Phone: [facility] Work Phone: 12-05-2021 09:23-0500 Heart rate 68 /min Dr. Valentin Arredondo Work Phone: [facility] Work Phone: 12-05-2021 09:23-0500 Respiratory rate 18 /min Dr. Valentin Arredondo Work Phone: [facility] Work Phone: 12-05-2021 09:23-0500 SaO2% (BldA) [Mass fraction] 96 % Dr. Valentin Arredondo Work Phone: [facility] Work Phone: 12-05-2021 09:23-0500 Systolic blood pressure 150 mm[Hg] Dr. Valentin Arredondo Work Phone: [facility] Work Phone: 08-05-2021 14:23-0400 Body height 165.1 cm Valentin Arredondo Work Phone: [employer] Work Phone: 08-05-2021 14:23-0400 Body mass index (BMI) [Ratio] 52.09 kg/m2 Valentin Arredondo Work Phone: [employer] Work Phone: 08-05-2021 14:23-0400 Body surface area Derived from formula 2.39 m2 Valentin Arredondo Work Phone: [employer] Work Phone: 08-05-2021 14:23-0400 Body temperature 97.5 [degF] Valentin Arredondo Work Phone: [employer] [facility] Work Phone: 08-05-2021 14:23-0400 Body weight 141.98 kg Valentin Hickmanmer Work Phone: [employer] [facility] Work Phone: 08-05-2021 14:23-0400 Diastolic blood pressure 92 mm[Hg] Valentin Hickmanmer Work Phone: [employer] [facility] Work Phone: 08-05-2021 14:23-0400 Heart rate 85 /min Valentin Arredondo Work Phone: [employer] [facility] Work Phone: 08-05-2021 14:23-0400 Respiratory rate 18 /min Valentin Arredondo Work Phone: [employer] [facility] Work Phone: 08-05-2021 14:23-0400 SaO2% (BldA) [Mass fraction] 97 % Valentin Arredondo Work Phone: [employer] [facility] Work Phone: 08-05-2021 14:23-0400 Systolic blood pressure 176 mm[Hg] Valentin Hickmanmer Work Phone: [employer] [facility] Work Phone: 08-05-2021 14:23-0400 6 1 Valentin Hickmanmer Work Phone: [employer] [facility] Work Phone: Comment on above: [employer] 04-08-2021 13:26-0400 Diastolic blood pressure 100 mm[Hg] Valentin L Arnulfo Work Phone: [employer] [facility] Work Phone: 04-08-2021 13:26-0400 Systolic blood pressure 180 mm[Hg] Valentin Arredondo Work Phone: [employer] [facility] Work Phone: 04-08-2021 13:20-0400 Body height 165.1 cm Valentin Arredondo Work Phone: [employer] [facility] Work Phone: 04-08-2021 13:20-0400 Body mass index (BMI) [Ratio] 50.77 kg/m2 Valentin Arredondo Work Phone: [employer] [facility] Work Phone: 04-08-2021 13:20-0400 Body surface area Derived from formula 2.37 m2 Valentin Mirta Arredondo Work Phone: [employer] [facility] Work Phone: 04-08-2021 13:20-0400 Body temperature 97.7 [degF] Valentin Arredondo Work Phone: [employer] [facility] Work Phone: 04-08-2021 13:20-0400 Body weight 138.38 kg Valentin Arredondo Work Phone: [employer] [facility] Work Phone: 04-08-2021 13:20-0400 Diastolic blood pressure 105 mm[Hg] Valentin Arredondo Work Phone: [employer] [facility] Work Phone: 04-08-2021 13:20-0400 Heart rate 69 /min Valentin L Arnulfo Work Phone: [employer] [facility] Work Phone: 04-08-2021 13:20-0400 Respiratory rate 18 /min Valentin L Arnulfo Work Phone: [employer] [facility] Work Phone: 04-08-2021 13:20-0400 SaO2% (BldA) [Mass fraction] 97 % Valentin Arredondo Work Phone: [employer] [facility] Work Phone: 04-08-2021 13:20-0400 Systolic blood pressure 169 mm[Hg] Valentin Arredondo Work Phone: [employer] [facility] Work Phone: 04-08-2021 13:20-0400 8 1 Valentin Arredondo Work Phone: [employer] [facility] Work Phone: Comment on above: [employer] 08-01-2020 16:02-0400 BMI (Body Mass Index) 52.43 kg/m2 Genie Godinez [employer] [facility] Work Phone: 08-01-2020 16:02-0400 Body Temperature 97.5 [degF] Genie Godinez [employer] [facility] Work Phone: 08-01-2020 16:02-0400 Body weight 142.91 kg Genie Godinez [employer] [facility] Work Phone: 08-01-2020 16:02-0400 BP Diastolic 87 mm[Hg] Genie Godinez [employer] [facility] Work Phone: 08-01-2020 16:02-0400 BP Systolic 178 mm[Hg] Genie Godinez [employer] [facility] Work Phone: 08-01-2020 16:02-0400 BSA (Body Surface Area) 2.4 m2 Genie Godinez [employer] [facility] Work Phone: 08-01-2020 16:02-0400 Pulse (Heart Rate) 71 /min Genie Melendezdemetrionoemicameron [employer] [facility] Work Phone: 08-01-2020 16:02-0400 Pulse Oximetry 97 % Genie Godinez [employer] [facility] Work Phone: 08-01-2020 16:02-0400 Respiratory Rate 18 /min Genie Melendezdemetrionoemicameron [facility] Work Phone: 08-01-2020 16:02-0400 7 1 Genie Godinez [employer] [facility] Work Phone: Comment on above: Pain Scale 12-14-2019 16:14-0500 BMI (Body Mass Index) 51.59 kg/m2 Genie Herbert [employer] Work Phone: 12-14-2019 16:14-0500 Body Temperature 99.7 [degF] Genie Melendezesevelasquezcameron [employer] [facility] Work Phone: Comment on above: Method: Oral 12-14-2019 16:14-0500 Body weight 140.62 kg Genie Melendezeseerasto [employer] Work Phone: 12-14-2019 16:14-0500 BP Diastolic 78 mm[Hg] Genie Melendezmitesh [employer] [facility] Work Phone: Comment on above: Location: LUE; Position: Sitting 12-14-2019 16:14-0500 BP Systolic 146 mm[Hg] Genie Melendezdemetrionoemicameron [employer] Work Phone: Comment on above: Location: LUE; Position: Sitting 12-14-2019 16:14-0500 BSA (Body Surface Area) 2.38 m2 Genie Herbert [facility] Work Phone: 12-14-2019 16:14-0500 Pulse (Heart Rate) 73 /min Genie Herbert [employer] [facility] Work Phone: 12-14-2019 16:14-0500 Pulse Oximetry 95 % Genie Herbert [employer] [facility] [facility] Work Phone: 07-29-2017 10:29-0400 BMI (Body Mass Index) 56.29 kg/m2 Shauna Macedo RECOVERY SPECIALIST [facility] Work Phone: 07-29-2017 10:29-0400 BP Diastolic 76 mm[Hg] Shauna Macedo RECOVERY SPECIALIST [facility] Work Phone: 07-29-2017 10:29-0400 BP Systolic 140 mm[Hg] Shauna Macedo RECOVERY SPECIALIST [facility] Work Phone: 07-29-2017 10:29-0400 Height 160.02 cm Shauna Macedo RECOVERY SPECIALIST [facility] Work Phone: 07-29-2017 10:29-0400 Pulse (Heart Rate) 65 /min Shauna Macedo RECOVERY SPECIALIST [facility] Work Phone: 07-29-2017 10:29-0400 Respiratory Rate 20 /min Shauna Macedo RECOVERY SPECIALIST [facility] Work Phone: 07-29-2017 10:29-0400 Weight 144.15 kg Shauna Macedo RECOVERY SPECIALIST [facility] Work Phone: 04-15-2017 11:08-0400 BMI (Body Mass Index) 55.65 kg/m2 Nena Leigh [facility] Work Phone: 04-15-2017 11:08-0400 Body Temperature 98.3 [degF] Nena Leigh Infe[facility] Work Phone: 04-15-2017 11:08-0400 BP Diastolic 84 mm[Hg] Nena Leigh [facility] Work Phone: 04-15-2017 11:08-0400 BP Systolic 144 mm[Hg] Nena Donald BUOY TENDER [facility] Work Phone: 04-15-2017 11:08-0400 Height 160.02 cm Nena Bennett LPN [facility] Work Phone: 04-15-2017 11:08-0400 Pulse (Heart Rate) 70 /min Nena Leigh [facility] Work Phone: 04-15-2017 11:08-0400 Respiratory Rate 20 /min Nena Eliseoster Infec tious Disease Work Phone: 04-15-2017 11:08-0400 Weight 142.52 kg Nena Leigh [facility] Work Phone: 01-08-2017 12:57-0400 Body Temperature 97.9 [degF] Nena Leigh [facility] Work Phone: 01-08-2017 12:57-0400 Height 160.02 cm Nena Bennett LPN [facility] Work Phone: 01-08-2017 12:57-0400 Weight 137.8 kg Shauna Macedo NP [facility] Work Phone: Encounters Encounter Date Encounter Type Care Provider Facility Start: 05-16-2025 ambulatory Myke Bowers Facility: [facility] Start: 04-27-2025 End: 04-27-2025 Office outpatient visit 25 minutes Genie Godinez MD Work Phone: [facility] Comment on above: Systemic lupus eryth ematosus, unspecified SLE type, unspecified organ involvement status (Multi) (Primary Dx); NSAID long-term use; Class 3 severe obesity due to excess calories with serious comorbidity and body mass index (BMI) of 50.0 to 59.9 in adult; Portal hypertension (Multi) Start: 04-10-2025 End: 04-17-[address] Myke Bowers MD -Nutritional Services Work Phone: Start: 04-10-2025 End: 04-17-[address] Ron Duenas MD Work Phone: -Nutritional Services Start: 02-21-2025 End: 02-21-2025 Patient encounter procedure Darrel Contreras Work Phone: Podiatry Comment on above: Diabetic polyneuropa thy associated with type 2 diabetes mellitus (HCC) (Primary Dx); Hallux valgus of right foot; Arthritis of both midfeet; Callus of foot Start: 02-21-2025 End: 02-21-2025 ambulatory [facility] Facility:[facility] Start: 02-16-2025 End: 02-16-[address] Myke Bowers MD -[facility] Work Phone: Start: 02-16-2025 End: 02-16-2025 ambulatory Myketaty Bowers Facility:[facility] Start: 01-31-2025 ambulatory [facility] Start: 01-18-2025 End: 01-18-2025 Chart abstracting Ron Duenas MD Work Phone: [facility] Start: 01-17-2025 End: 01-17-[address] Ron Duenas MD Work Phone: [facility] Work Phone: Start: 01-17-2025 End: 01-17-[address] Myke Bowers MD -Laboratory, [place] Start: 01-17-2025 End: 01-17-2025 ambulatory Myke Bowers Facility:[facility] Start: 01-10-2025 End: 01-11-2025 Refill Brenda Toth EDUCATION OFFICER.APPEALS BOARD REFEREE Work Phone: [facility] Comment on above: Refill Request Start: 12-19-2024 End: 12-19-2024 ambulatory [facility] Facility:[facility] Start: 12-19-2024 End: 12-19-2024 Office outpatient visit 15 minutes Brenda Toth EDUCATION OFFICER.APPEALS BOARD REFEREE Work Phone: [facility] Comment on above: Fibromyalgia (Primar y Dx); Primary hypertension; Type 2 diabetes mellitus with diabetic polyneuropathy, without long-term current use of insulin (HCC); Systemic lupus erythematosus, unspecified SLE type, unspecified organ involvement status (HCC) Start: 11-22-2024 End: 11-23-2024 Telephone encounter Brenda Toth APRN.APPEALS BOARD REFEREE Work Phone: [facility] Comment on above: Results (Labs) Start: 11-21-2024 End: 11-21-2024 ambulatory BRENDA TOTH Facility:[facility] Start: 11-21-2024 End: 11-21-2024 Office outpatient visit 25 minutes Brenda Toth APRN.APPEALS BOARD REFEREE Work Phone: [facility] Comment on above: Primary hypertension (Primary Dx); Uncontrolled type 2 diabetes mellitus with hyperglycemia (HCC); Mixed hyperlipidemia; Fibromyalgia; TERI (obstructive sleep apnea); Type 2 diabetes mellitus with diabetic polyneuropathy, without long-term current use of insulin (HCC); Gastroesophageal reflux disease without esophagitis; MARCY (generalized anxiety disorder) Start: 11-17-2024 End: 11-17-2024 Emergency department patient visit Dr. Iglesia Wright MD -Emergency Department Work Phone: Start: 11-16-2024 End: 11-16-2024 Patient encounter procedure Wendy Lima RECOVERY SPECIALIST-C -[facility] Work Phone: Start: 11-16-2024 End: 11-16-2024 ambulatory Wendy Lima [place] Start: 09-29-2024 End: 09-30-2024 Telephone encounter Darrel Contreras Work Phone: Podiatry Comment on above: Orders Start: 09-22-2024 End: 09-22-2024 Patient encounter procedure Agnieszka Melchor APRN.APPEALS BOARD REFEREE Work Phone: OB/Gynecology Comment on above: Encounter for gyneco logical examination (general) (routine) without abnormal findings (Primary Dx); Encounter for screening for human papillomavirus (HPV); Pap smear for cervical cancer screening; Encounter for screening mammogram for breast cancer Start: 09-22-2024 End: 09-22-2024 Patient encounter status Agnieszka Melchor APRN.CNP Work Phone: [facility] Start: 09-22-2024 End: 09-22-2024 ambulatory RON DUENAS Facility:[facility] Start: 09-22-2024 End: 09-22-2024 Subsequent hospital visit by physician Screen Mammo [facility] Comment on above: Encounter for screen ing mammogram for malignant neoplasm of breast [Z12.31] Start: 09-08-2024 End: 09-08-2024 ambulatory Margie Pagan [facility] Start: 09-08-2024 End: 09-08-2024 Patient encounter procedure Margie Pagan [facility] Comment on above: Population Health Na vigation Outreach (BP) Start: 08-17-2024 End: 10-10-2024 Telephone encounter Agnieszka Melchor APRN.APPEALS BOARD REFEREE Work Phone: OB/Gynecology Comment on above: Orders Start: 08-15-2024 End: 08-16-2024 ambulatory Mel Obando APRN.APPEALS BOARD REFEREE Work Phone: [facility] Comment on above: Muscle cramps Start: 08-10-2024 End: 08-10-2024 ambulatory Carson Kaba Facility:[facility] Start: 08-04-2024 End: 08-04-2024 Telephone encounter Ron Duenas MD Work Phone: [facility] Comment on above: Results Start: 08-02-2024 End: 08-02-2024 ambulatory BRENDA TOTH Facility:[facility] Start: 07-29-2024 End: 07-29-2024 Office outpatient visit 15 minutes Terrance Simons MD Work Phone: [facility] Comment on above: Acute pain of right knee (Primary Dx) Start: 07-29-2024 End: 07-29-2024 ambulatory RON DUENAS Facility:[facility] Start: 07-29-2024 End: 07-29-2024 Subsequent hospital visit by physician Xr [facility] Work Phone: Radiology Comment on above: Acute pain of right knee [M25.561] Start: 07-29-2024 End: 07-29-2024 Telephone encounter Ron Duenas MD Work Phone: [facility] Comment on above: Patient Update Start: 07-25-2024 End: 07-25-2024 ambulatory [facility] Facility:[facility] Start: 07-18-2024 End: 07-19-2024 ambulatory Ron Duenas MD Work Phone: [facility] Comment on above: Blood preasure Start: 07-12-2024 End: 07-12-2024 ambulatory [facility] Facility:[facility] Start: 07-11-2024 End: 07-11-2024 Chart abstracting Ron Duenas MD Work Phone: [facility] Start: 07-11-2024 End: 07-11-2024 ambulatory [facility] Facility:[facility] Start: 06-27-2024 End: 06-28-2024 Telephone encounter Brenda A Suppan EDUCATION OFFICER.APPEALS BOARD REFEREE Work Phone: [facility] Comment on above: Results Start: 06-24-2024 End: 06-24-2024 [facility] Start: 06-24-2024 End: 06-24-2024 Subsequent hospital visit by physician [facility] Work Phone: Radiology Comment on above: Abdominal wall strai n, initial encounter [S39.011A] Start: 06-17-2024 End: 06-17-2024 ambulatory [facility] Start: 06-17-2024 End: 06-17-2024 Office outpatient visit 15 minutes Brenda A Suppan EDUCATION OFFICER.APPEALS BOARD REFEREE Work Phone: [facility] Comment on above: Abdominal wall strai n, initial encounter (Primary Dx) Start: 05-20-2024 Chart abstracting Ron Mcneil MD Work Phone: [facility] Comment on above: Abstract Start: 05-20-2024 End: 05-20-2024 Subsequent hospital visit by physician [facility] Work Phone: Radiology Comment on above: Left sided sciatica [M54.32] Start: 05-20-2024 End: 05-20-2024 ambulatory RON DUENAS Facility:[facility] Start: 05-20-2024 End: 05-20-2024 Patient encounter procedure Ron Duenas MD Work Phone: [facility] Comment on above: Type 2 diabetes joe itus with diabetic polyneuropathy, without long-term current use of insulin (HCC) (Primary Dx); Polyneuropathy; Fibromyalgia; Primary insomnia; Mixed hyperlipidemia; Primary hypertension; TERI (obstructive sleep apnea); Portal hypertensive gastropathy (HCC) (HCC); Nonalcoholic steatohepatitis (KOTHARI); Uncontrolled type 2 diabetes mellitus with hyperglycemia (HCC); Systemic lupus erythematosus, unspecified SLE type, unspecified organ involvement status (HCC); Mild episode of recurrent major depressive disorder (HCC); Morbid obesity with BMI of 50.0-59.9, adult (HCC); Vitamin D deficiency; Encounter for screening examination for other mental health and behavioral disorders; Left sided sciatica Start: 05-10-2024 Refill Ron Duenas MD Work Phone: [facility] Comment on above: Refill Request Start: 03-29-2024 Refill Ron Duenas MD Work Phone: [facility] Comment on above: Refill Request Start: 02-22-2024 End: 02-22-2024 Patient encounter procedure Darrel Ben Work Phone: Podiatry Comment on above: Diabetic polyneuropa thy associated with type 2 diabetes mellitus (HCC) (Primary Dx); Hallux valgus of right foot; Hammer toe of right foot; Callus of foot Start: 02-17-2024 End: 02-17-[address] Ron Duenas Work Phone: [facility] Work Phone: Start: 02-17-2024 End: 02-17-[address] Ron Duenas Work Phone: [facility], [facility] Start: 02-16-2024 End: 02-16-2024 ambulatory [facility] Ambulatory Start: 02-16-2024 End: 02-16-2024 Office outpatient visit 25 minutes Genie Godinez MD Work Phone: [facility] Comment on above: Systemic lupus eryth ematosus, unspecified SLE type, unspecified organ involvement status (Multi) (Primary Dx); Fibromyalgia; NSAID long-term use; Class 3 severe obesity due to excess calories with serious comorbidity and body mass index (BMI) of 45.0 to 49.9 in adult (Multi); Type 2 diabetes mellitus without complication, without long-term current use of insulin (Multi); Nonalcoholic steatohepatitis (KOTHARI) Start: 12-30-2023 End: 12-30-2023 Patient encounter procedure Mel Obando APRN.CNP Work Phone: [facility] Comment on above: Medicare annual well ness visit, subsequent (Primary Dx) Start: 12-10-2023 ambulatory Debby modi MA [facility] Comment on above: Population Health Na vigation Outreach ([facility] AW[facility]) Start: 12-09-2023 End: 12-09-[address] Ron Duenas Work Phone: [facility] Work Phone: Start: 12-04-2023 End: 12-04-[address] Ron Duenas Work Phone: [facility] Work Phone: Start: 11-23-2023 End: 11-23-[address] Ron Duenas Work Phone: [facility] Work Phone: Start: 11-23-2023 End: 11-23-[address] Ron Duenas Work Phone: [facility] Work Phone: Start: 11-20-2023 End: 11-20-2023 Patient encounter procedure Ron Duenas MD Work Phone: [facility] Comment on above: Type 2 diabetes joe itus with diabetic polyneuropathy, without long-term current use of insulin (HCC) (Primary Dx); Polyneuropathy; Fibromyalgia; Primary hypertension; Mixed hyperlipidemia; TERI (obstructive sleep apnea); Portal hypertensive gastropathy (HCC) (HCC); Nonalcoholic steatohepatitis (KOTHARI); Systemic lupus erythematosus, unspecified SLE type, unspecified organ involvement status (HCC); Mild episode of recurrent major depressive disorder (HCC); Morbid obesity with BMI of 50.0-59.9, adult (HCC); Vitamin D deficiency; Need for influenza vaccination Start: 09-24-2023 End: 09-24-2023 Subsequent hospital visit by physician Xr [facility] Work Phone: Radiology Comment on above: Acute cough [R05.1] Start: 09-24-2023 End: 09-24-2023 Patient encounter procedure Gayle GUEVARA Work Phone: [facility] Comment on above: Acute cough (Primary Dx); URI, acute; Sinobronchitis Start: 09-17-2023 End: 09-17-2023 Patient encounter procedure Rita Felix PA-C Work Phone: [facility] Comment on above: Primary hypertension (Primary Dx); Leg cramps Start: 09-16-2023 End: 09-16-[address] Ron Duenas Work Phone: [facility] Work Phone: Start: 08-20-2023 End: 08-21-2023 ambulatory RON BYRD [facility] Start: 08-20-2023 End: 08-20-2023 Office outpatient visit 25 minutes Genie Godinez MD Work Phone: [facility] Comment on above: Systemic lupus eryth ematosus, unspecified SLE type, unspecified organ involvement status (CMS/HCC) (Primary Dx); Encounter for monitoring of hydroxychloroquine therapy; Fibromyalgia; Class 3 severe obesity due to excess calories with serious comorbidity and body mass index (BMI) of 50.0 to 59.9 in adult (CMS/HCC); Type 2 diabetes mellitus without complication, without long-term current use of insulin (CMS/HCC); Primary osteoarthritis of both knees Start: 08-18-2023 Documentation procedure Mammog corbin Coordinator [facility] Start: 08-18-2023 Letter encounter Mammography Coordinator [facility] Department Start: 08-17-2023 End: 08-17-2023 Patient encounter procedure Agnieszka Melchor APPEALS BOARD REFEREE Work Phone: OB/Gynecology Comment on above: Encounter for gyneco logical examination (general) (routine) without abnormal findings (Primary Dx); Encounter for screening mammogram for breast cancer; Encounter for screening for osteoporosis Start: 08-17-2023 End: 08-17-2023 Patient encounter status Agnieszka Melchor JULIO.APPEALS BOARD REFEREE Work Phone: [facility] Work Phone: Start: 08-17-2023 End: 08-17-2023 Subsequent hospital visit by physician Screen Mammo [facility] Mammogram Comment on above: Encounter for screen ing mammogram for breast cancer [Z12.31] Start: 06-25-2023 Telephone encounter Ron Duenas MD Work Phone: [facility] Comment on above: Medication Problem Start: 05-19-2023 End: 05-19-2023 Patient encounter procedure Ron Duenas MD Work Phone: [facility] Comment on above: Type 2 diabetes joe itus with diabetic polyneuropathy, without long-term current use of insulin (HCC) (Primary Dx); Primary hypertension; Portal hypertensive gastropathy (HCC); Mild episode of recurrent major depressive disorder (HCC); Polyneuropathy; TERI (obstructive sleep apnea); Systemic lupus erythematosus, unspecified SLE type, unspecified organ involvement status (HCC); Fatty liver; Visual disturbance; Morbid obesity with BMI of 50.0-59.9, adult (HCC) Start: 05-19-2023 ambulatory Falguni Montgomery RN [facility] Comment on above: TANJA BLOOD RN ( Medication Adherence review per request of payer) Start: 05-18-2023 Rx Renewal Ron Duenas Work Phone: [employer] [facility] Work Phone: Start: 02-26-2023 Chart Update Ron Duenas Work Phone: [facility] Work Phone: Start: 02-25-2023 Chart Update Ron Duenas Work Phone: [employer] [facility] Work Phone: Start: 02-23-2023 Rx Renewal Ron Duenas Work Phone: [employer] [facility] Work Phone: Start: 02-20-2023 Chart Update Ron Duenas Work Phone: [employer] [facility] Work Phone: Start: 02-19-2023 FUV, Provider: Genie Godinez, Status: Pen, Time: 3:00 PM Ron Duenas Work Phone: [employer] [facility] Work Phone: Start: 02-19-2023 Office outpatient vi sit 25 minutes Ron Duenas Work Phone: [employer] [facility] Work Phone: Start: 02-19-2023 ambulatory Genie Godinez Facilit [id number] Start: 02-18-2023 AUDIT Ron Duenas Work Phone: [employer] [facility] Work Phone: Start: 12-18-2022 End: 01-16-[address] Ron Duenas Work Phone: [facility] Work Phone: Start: 12-18-2022 End: 01-16-[address] Ron Duenas Work Phone: [facility] Start: 12-17-2022 End: 12-17-2022 Office outpatient visit 15 minutes Mel Obando APRN.CNP Work Phone: [facility] [place] Comment on above: Primary hypertension (Primary Dx) Start: 12-10-2022 End: 12-10-[address] Ron Duenas Work Phone: [facility] Start: 12-01-2022 End: 12-01-2022 Patient encounter procedure Darrel Contreras Work Phone: Podiatry Comment on above: Type 2 diabetes joe itus with diabetic polyneuropathy, without long-term current use of insulin (HCC) (Primary Dx); Polyneuropathy; Hallux valgus of right foot; Callus of foot; Onychodystrophy Start: 11-21-2022 AUDIT Ron Duenas Work Phone: [employer] Work Phone: Start: 11-20-2022 Telephone encounter Ron Deunas MD Work Phone: [facility] Comment on above: Results Start: 11-19-2022 Non-patient / Non-visit Dr. Gabe Duenas Work Phone: [facility] Start: 11-18-2022 End: 11-18-[address] Ron Duenas Work Phone: [facility] Work Phone: Start: 11-18-2022 End: 11-18-[address] Ron Duenas Work Phone: [facility] Start: 11-07-2022 Chart abstracting Ron Mcneil MD Work Phone: [facility] Start: 11-07-2022 End: 11-07-[address] Ron Duenas Work Phone: [facility] Work Phone: Start: 11-07-2022 End: 11-07-[address] Ron Duenas Work Phone: [facility] Start: 11-07-2022 End: 11-07-[address] Ron Duenas Work Phone: [facility] Start: 10-22-2022 Non-patient / Non-visit Dr. Gabe Duenas Work Phone: [facility] Start: 10-22-2022 End: 10-22-2022 Admission to same day surgery center Dr. Ron Duenas Work Phone: [facility] Start: 10-22-2022 End: 10-22-[address] Ron Duenas Work Phone: [facility] Work Phone: Start: 09-08-2022 End: 09-08-[address] Valentin Arredondo Work Phone: [facility] Work Phone: Start: 09-08-2022 End: 09-08-[address] Valentin Arredondo Work Phone: [facility] Start: 08-22-2022 Chart Update Ron Duenas Work Phone: [employer] [facility] Work Phone: Start: 08-21-2022 Office outpatient vi sit 25 minutes Ron Duenas Work Phone: [employer] [facility] Work Phone: Start: 08-21-[address] Ron Duenas Facility:[id number] Start: 08-20-2022 End: 08-20-[address] Ron Duenas Work Phone: [facility] Work Phone: Start: 08-20-2022 End: 08-20-[address] Ron Duenas Work Phone: [facility] Start: 08-19-2022 End: 08-19-[address] Ron Duenas Work Phone: [facility] Work Phone: Start: 08-19-2022 End: 08-19-[address] Ron Duenas Work Phone: [facility] Start: 08-19-2022 End: 08-19-[address] Ron Duenas Work Phone: [facility] Start: 08-17-2022 AUDIT Ron Duenas Work Phone: [employer] Work Phone: Start: 08-15-2022 Documentation procedure Mammog corbin Coordinator [facility] Start: 08-15-2022 Letter encounter Mammography Coordinator [facility] Department Start: 08-14-2022 End: 08-14-2022 Patient encounter procedure Agnieszka Melchor APRN.APPEALS BOARD REFEREE Work Phone: OB/Gynecology Comment on above: Encounter for gyneco logical examination (general) (routine) without abnormal findings (Primary Dx); Encounter for screening mammogram for breast cancer Start: 08-14-2022 End: 08-14-2022 Patient encounter status Agnieszka Melchor APRN.APPEALS BOARD REFEREE Work Phone: OB/Gynecology Start: 08-14-2022 End: 08-14-2022 Subsequent hospital visit by physician Screen Mammo [facility] Mammogram Comment on above: Encounter for screen ing mammogram for breast cancer [Z12.31] Start: 07-31-2022 ambulatory Ron Duenas MD Work Phone: [facility] Comment on above: Pravastatin and etod olac Start: 07-04-2022 Refill Ron Duenas MD Work Phone: [facility] Comment on above: Refill Request Start: 06-11-2022 End: 06-11-[address] Ron Duenas Work Phone: [facility] Start: 05-19-2022 Refill Ron Duenas MD Work Phone: [facility] Comment on above: Refill Request Start: 05-13-2022 End: 05-13-2022 Admission to same day surgery center Dr. Ron Duenas Work Phone: [facility]-Software Applications Developer/Special Procedures Start: 05-13-2022 End: 05-13-2022 Non-patient / Non-visit Dr. Ron Duenas Work Phone: [facility] Start: 05-07-2022 End: 05-07-[address] Ron Duenas Work Phone: [facility] Start: 05-07-2022 End: 05-07-[address] Ron Duenas Work Phone: [facility] Start: 04-24-2022 Rx Renewal Ron Duenas Work Phone: [employer] Work Phone: Start: 04-10-2022 Refill Ron Duenas MD Work Phone: [facility] Comment on above: Refill Request Stomach pain Start: 04-01-2022 ambulatory Ron Duenas MD Work Phone: [facility] Comment on above: IC etodolac 400mg Start: 03-31-2022 Telephone encounter Ron Duenas MD Work Phone: [facility] Comment on above: Results Erroneous encounter- disregard Start: 03-27-2022 Non-patient / Non-visit Dr. Fong Work Phone: [facility] Start: 03-27-2022 End: 03-27-[address] Valentin Arredondo Work Phone: [facility] Start: 03-18-2022 Telephone encounter Ron Duenas MD Work Phone: [facility] Comment on above: Patient Question Start: 03-12-2022 End: 03-12-2022 Subsequent hospital visit by physician [facility]a [facility] Work Phone: Radiology Comment on above: Chest pain, unspecif ied type [R07.9] Start: 03-12-2022 End: 03-12-2022 Patient encounter procedure Ron Duenas MD Work Phone: [facility] [place] Comment on above: Chest pain, unspecif ied type (Primary Dx); GERD without esophagitis; Screening for colon cancer; Type 2 diabetes mellitus with diabetic polyneuropathy, without long-term current use of insulin (HCC); Primary hypertension; TERI (obstructive sleep apnea); Family hx of ischem heart dis and oth dis of the circ sys; Heart murmur; Chronic insomnia Start: 02-16-2022 AUDIT Valentin Hickman er Work Phone: [facility] Work Phone: Start: 02-14-2022 AUDIT Valentin Venegas er Work Phone: [employer] [facility] Work Phone: Start: 01-29-2022 FUV, Provider: Genie Godinez, Status: Pen, Time: 1:15 PM Valentin Arredondo Work Phone: [facility] Work Phone: Start: 01-27-2022 AUDIT Valentin Venegas er Work Phone: [facility] Work Phone: Start: 01-14-2022 Rx Renewal Valentin Venegas er Work Phone: [facility] Work Phone: Start: 12-05-2021 End: 12-05-[address] Valentin Arredondo Work Phone: [facility] Start: 11-12-2021 AUDIT Valentin Venegas er Work Phone: [employer] [facility] Work Phone: Start: 08-06-2021 AUDIT Valentin Venegas er Work Phone: [employer] [facility] Work Phone: Start: 08-05-2021 FUV, Provider: Genie Godinez, Status: Pen, Time: 2:15 PM Valentin Hickmanmer Work Phone: [employer] Work Phone: Start: 08-05-2021 Office outpatient vi sit 25 minutes Valentin Hickmanmer Work Phone: [facility] Work Phone: Start: 08-04-2021 AUDIT Valentin Kirby Bloglovinm er Work Phone: [facility] Work Phone: Start: 08-02-2021 AUDIT Valentin Kirby Widm er Work Phone: [facility] Work Phone: Start: 07-19-2021 Rx Renewal Valentin Kirby Bloglovinm er Work Phone: [facility] Work Phone: Start: 04-09-2021 AUDIT Valentin Kirby Bloglovinm er Work Phone: [facility] Work Phone: Start: 04-08-2021 Current tobacco non- user cad cap copd pv dm Valentin Kirby Arnulfo Work Phone: [facility] Work Phone: Start: 03-29-2021 AUDIT Valentin Kirby Bloglovinm er Work Phone: [facility] Work Phone: Start: 12-12-2020 Patient encounter procedure Genie Godinez [facility] Work Phone: Start: 08-01-2020 Patient encounter procedure Genie Godinez [facility] [facility] Work Phone: Start: 04-11-2020 Patient encounter procedure Genie Godinez [facility] Work Phone: Start: 12-14-2019 Patient encounter procedure Genie Godinez [facility] Work Phone: Start: 08-10-2019 Patient encounter procedure Genie Godinez [facility] Work Phone: Start: 03-30-2019 Patient encounter procedure Genie Godinez [facility] Work Phone: Start: 11-24-2018 Patient encounter procedure Genie Godinez [facility] Work Phone: Start: 07-28-2018 Patient encounter procedure Genie Godinez [facility] Work Phone: Start: 04-14-2018 Patient encounter procedure Genie Godinez [facility] Work Phone: Start: 12-16-2017 Patient encounter procedure Genie Godinez [facility] Work Phone: Procedures Date Procedure Procedure Detail Performing Clinician Start: 01-17-2025 Lipid panel [facility] Provid er Start: 01-17-2025 Vitamin D, 25-hydrox y measurement Dr. Ron Duenas MD Work Phone: Comment on above: Vitamin D StatusDefi ciency: <20 ng/mL (50nmol/L)Insufficiency: 20-30 ng/mL (50-75 nmol/L)Sufficiency: 30-100 ng/mL (75-250 nmol/L)Toxicity: >100 ng/mL (>250 nmol/L) Start: 11-17-2024 Plain chest X-ray Dr. Siddhartha Duenas MD Work Phone: Start: 09-22-2024 End: 09-22-2024 Screening digital breast tomosynthesis niraj Melchor APRN.CNP Work Phone: Start: 07-29-2024 Radiologic exam knee complete 4/more views Terrance Simons MD Work Phone: Start: 07-11-2024 Hemoglobin A1c/Hemoglobin.total in Blood [facility] Provider Start: 07-11-2024 Lipid panel [facility] Provid er Start: 05-20-2024 Radex spine lumbosac ral 2/3 views Ron Duenas MD Work Phone: Start: 02-20-2024 Lipid panel Genie maurer MD Work Phone: Start: 02-17-2024 Hemoglobin A1c/Hemoglobin.total in Blood [facility] Provider Start: 02-17-2024 Lipid panel [facility] Provid er Start: 11-23-2023 Ultrasound elastogra phy of liver Dr. Ron Duenas Work Phone: Start: 11-20-2023 INFLUENZA VACCINE, P RSV FREE, AGE 65+ YR, HIGH DOSE, QUADRIVALENT (FLUZONE HIGH-DOSE) Ron Duenas MD Work Phone: Start: 09-24-2023 Radiologic exam chest 2 views Gayle GUEVARA Work Phone: Start: 08-20-2023 ANTI-DNA ANTIBODY, DOUBLE-STRANDED RON DUENAS Start: 08-20-2023 C-reactive protein WILL GIACOMO YULISSA Start: 08-20-2023 C3 COMPLEMENT RON Kirby Start: 08-20-2023 C4 COMPLEMENT Start: 08-20-2023 CBC W Auto Different ial panel - Blood RON DUENAS Start: 08-20-2023 Comprehensive metabo lic 2000 panel - Serum or Plasma RON DUENAS Start: 08-20-2023 SEDIMENTATION RATE, AUTOMATED RON DUENAS Start: 08-17-2023 End: 08-17-2023 Mammography Agnieszka Melchor APRN.APPEALS BOARD REFEREE Work Phone: Start: 05-22-2023 Lipid 1996 panel - S elda or Plasma Genie Godinez MD Work Phone: Start: 11-18-[address] Ron Duenas Work Phone: Start: 11-18-[address] Ron Duenas Work Phone: Start: 10-22-2022 End: 10-22-[address] Ron Duenas Work Phone: Start: 09-08-2022 Computed tomography of abdomen and pelvis with contrast Dr. Valentin Arredondo Work Phone: Start: 08-14-2022 End: 08-14-2022 Mammography Pau Cleary MD Work Phone: Start: 03-27-2022 Cardiovascular stres s test using pharmacologic stress agent Dr. Valentin Arredondo Work Phone: Start: 03-12-2022 Radiologic exam chest 2 views Ron Duenas MD Work Phone: Start: 03-12-2022 Adult depression scr eening assessment Ron Duenas MD Work Phone: Start: 08-12-2021 Mammography Ron Mcneil MD Work Phone: Start: 08-01-2020 Albumin serum plasma /whole blood Genie Godinez Start: 08-01-2020 Assay of urea nitrog en quantitative Genie Godinez Start: 08-01-2020 AST [Catalytic activity/Vol] Genie Godinez Start: 08-01-2020 Blood count complete auto&auto difrntl wbc Genie Godinez Start: 08-01-2020 C-reactive protein Eileen Godinez Start: 08-01-2020 Complement antigen e ach component Genie Godinez Start: 08-01-2020 Creatinine blood Genie Godinez Start: 08-01-2020 Extractable nuclear antigen antibody any method Genie Godinez Start: 08-01-2020 Sedimentation rate r bc automated Genie Godinez Start: 08-01-2020 Transferase alanine amino alt sgpt Genie Godinez Start: 04-11-2020 Assay of urea nitrog en quantitative Genie Godinez Start: 04-11-2020 AST [Catalytic activity/Vol] Genie Godinez Start: 04-11-2020 Blood count complete auto&auto difrntl wbc Genie Godinez Start: 04-11-2020 C-reactive protein Eileen Raymundoshahriar Start: 04-11-2020 Complement antigen e ach component Genie Melendezesemagnoshahriar Start: 04-11-2020 Extractable nuclear antigen antibody any method Genie Raymundoshahriar Start: 04-11-2020 Sedimentation rate r bc automated Genie Raymundoshahriar Start: 04-11-2020 Transferase alanine amino alt sgpt Genie Melendezesemagnoshahriar Start: 12-14-2019 Assay of urea nitrog en quantitative Genie Melendezesemagnoshahriar Start: 12-14-2019 AST [Catalytic activity/Vol] Genie Raymundoshahriar Start: 12-14-2019 Blood count complete auto&auto difrntl wbc Genie Melendezesemagnoshahriar Start: 12-14-2019 C-reactive protein Eileen Melendezesemagnoshahriar Start: 12-14-2019 Complement antigen e ach component Genie Melendezmitesh Start: 12-14-2019 Creatinine blood Genie Melendezesemagnoshahriar Start: 12-14-2019 Creatinine other source Genie Melendezesemagnoshahriar Start: 12-14-2019 Extractable nuclear antigen antibody any method Genie Raymundoshahriar Start: 12-14-2019 Protein total xcpt refractometry urine Genie Raymundoshahriar Start: 12-14-2019 Sedimentation rate r bc automated Genie Raymundoshahriar Start: 12-14-2019 Transferase alanine amino alt sgpt Genie Raymundoshahriar Start: 07-11-2019 Colonoscopy Ron Mcneil MD Work Phone: Start: 07-29-2017 End: 07-29-2017 *CMP Complete Metabolic Panel Shauna chaves NP Work Phone: Start: 07-29-2017 End: 07-29-2017 Hemoglobin A1c/Hemoglobin.total in Blood Shuana Macedo NP Work Phone: Start: 07-29-2017 End: 07-29-2017 Lipid 1996 panel - Serum or Plasma Shauna Macedo NP Work Phone: Start: 07-29-2017 End: 07-29-2017 Thyrotropin [Units/volume] in Serum or Plasma Shauna Macedo NP Work Phone: Appendectomy Genie Godinez Cholecystectomy Geniekimberlee bess Hernia repair Geniekimberlee Stewart i History of Explorato ry Laparoscopy Geniekimberlee Godinez History of Ovarian Cystectomy Genie Godinez History of Proctosig moidoscopy (Rigid) For Removal Of Multiple Polyps Geniekimberlee Godinez Hysterectomy Genie Herbert Lactoferrin measurement Dr. Ron Duenas Work Phone: Lactoferrin measurement Dr. Ron Duenas Work Phone: Other bilateral liga tion and division of fallopian tubes Genie Herbert Tonsillectomy Geniekimberlee Stewart i Plan of Treatment Date Care Activity Detail Author Start: 07-11-2029 Screening for malign ant neoplasm of colon [facility] Start: 02-22-2026 End: 02-22-2026 Patient encounter procedure 02/22/2026 1:00 PM EDT Office Visit Podiatry [address] [place] [address] Darrel Contreras [address] [place], [place] [id number] 1 year follow up diabetic foot care Podiatry Comment on above: 1 year follow up bryanna betic foot care Start: 02-21-2026 Diabetic foot examination Diabetic Foot Exam [facility] Start: 01-17-2026 Hepatitis B surface antibody level LDL Cholesterol [facility] Start: 12-29-2025 Glaucoma screening Dilated Retinal E xam [facility] Start: 12-19-2025 Annual PCP Team Computer Aided Drafter oxana Disease Visit Annual PCP Team Chronic Disease Visit [facility] Start: 11-21-2025 Annual PCP Team Computer Aided Drafter oxana Disease Visit Annual PCP Team Chronic Disease Visit [facility] Start: 11-21-2025 Hepatitis B screening Urine Albumin:Creatinine Ratio [facility] Start: 11-21-2025 Hepatitis B surface antibody level LDL Cholesterol [facility] Start: 11-21-2025 Urine screening for protein Diabetes: Urine Protein Screening [facility] Start: 11-01-2025 End: 11-01-2025 Patient encounter procedure 11/01/2025 1:00 PM EST Office Visit [address] [place] [id number] Genie Godinez MD [address] [address] [facility] [address] [place], [place] [id number] [facility] Start: 10-22-2025 Screening for malign ant neoplasm of colon [facility] Start: 09-26-2025 End: 09-26-2025 Patient encounter procedure Mammogram Comment on above: Encounter for gyneco logical examination (general) (routine) without abnormal findings [Z01.419]; Encounter for screening mammogram for breast cancer [Z12.31] Annual Start: 09-22-2025 BP Controlled (<130/80) BP Con trolled (<130/80) [facility] Start: 09-22-2025 Screening for malign ant neoplasm of breast [facility] Start: 09-22-2025 Screening for malign ant neoplasm of cervix Cervical Cancer Screening [facility] Start: 08-15-2025 BP Controlled (<130/80) BP Con trolled (<130/80) [facility] Start: 07-11-2025 Hepatitis B surface antibody level LDL Cholesterol [facility] Start: 07-04-2025 End: 07-04-2025 Patient encounter procedure 07/04/2025 1:00 PM EDT Office Visit Family Medicine Lu [address] [place] [address] Ron Duenas MD [address] [place] [address] Medicare Wellness Exam Family Medicine [facility] Comment on above: Medicare Wellness Ex am Start: 06-19-2025 Influenza vaccination C [facility] Start: 05-20-2025 Annual PCP Team Computer Aided Drafter oxana Disease Visit Annual PCP Team Chronic Disease Visit [facility] Start: 05-20-2025 Anxiety Screening Anxiety Screening [facility] Start: 04-27-2025 End: 04-27-2026 C reactive protein [Mass/volume] in Serum or Plasma C-Reactive Protein Lab Routine Systemic lupus erythematosus, unspecified SLE type, unspecified organ involvement status (Multi) Expected: 04/27/2025, Expires: 04/27/2026 [facility] Work Phone: Comment on above: Expected: 04/27/2025 , Expires: 04/27/2026 Start: 04-27-2025 End: 04-27-2026 CBC W Auto Differential panel - Blood CBC and Auto Differential Lab Routine Systemic lupus erythematosus, unspecified SLE type, unspecified organ involvement status (Multi) Expected: 04/27/2025 (Approximate), Expires: 04/27/2026 [facility] Work Phone: Comment on above: Expected: 04/27/2025 (Approximate), Expires: 04/27/2026 Start: 04-27-2025 End: 04-27-2026 Complement C3 [Mass/volume] in Serum or Plasma C3 Complement Lab Routine Systemic lupus erythematosus, unspecified SLE type, unspecified organ involvement status (Multi) Expected: 04/27/2025 (Approximate), Expires: 04/27/2026 [facility] Work Phone: Comment on above: Expected: 04/27/2025 (Approximate), Expires: 04/27/2026 Start: 04-27-2025 End: 04-27-2026 Complement C4 [Mass/volume] in Serum or Plasma C4 Complement Lab Routine Systemic lupus erythematosus, unspecified SLE type, unspecified organ involvement status (Multi) Expected: 04/27/2025 (Approximate), Expires: 04/27/2026 [facility] Work Phone: Comment on above: Expected: 04/27/2025 (Approximate), Expires: 04/27/2026 Start: 04-27-2025 End: 04-27-2026 Comprehensive metabolic 2000 panel - Serum or Plasma Comprehensive Metabolic Panel Lab Routine Systemic lupus erythematosus, unspecified SLE type, unspecified organ involvement status (Multi) Expected: 04/27/2025 (Approximate), Expires: 04/27/2026 [facility] Work Phone: Comment on above: Expected: 04/27/2025 (Approximate), Expires: 04/27/2026 Start: 04-27-2025 End: 04-27-2026 DNA double strand Ab [Units/volume] in Serum Anti-DNA Antibody, Double-Stranded Lab Routine Systemic lupus erythematosus, unspecified SLE type, unspecified organ involvement status (Multi) Expected: 04/27/2025 (Approximate), Expires: 04/27/2026 [facility] Service Area Work Phone: Comment on above: Expected: 04/27/2025 (Approximate), Expires: 04/27/2026 Start: 04-27-2025 End: 04-27-2026 Erythrocyte sedimentation rate Sedimentation Rate Lab Routine Systemic lupus erythematosus, unspecified SLE type, unspecified organ involvement status (Multi) Expected: 04/27/2025, Expires: 04/27/2026 [facility] Work Phone: Comment on above: Expected: 04/27/2025 , Expires: 04/27/2026 Start: 04-17-2025 Influenza vaccination Influenza Vacc ine (#1) [facility] Comment on above: Postponed from 06/19 (Declined at this time) Start: 02-21-2025 Diabetic foot examination Diabetic Foot Exam [facility] Start: 02-21-2025 End: 02-21-2025 Patient encounter procedure Podiatry Comment on above: 1 year follow up [facility] Start: 02-16-2025 Hepatitis B surface antibody level LDL Cholesterol [facility] Start: 01-08-2025 Hemoglobin A1c measurement HbA1C [facility] Start: 12-30-2024 Medicare Annual Wellness Visit Medicare Annual Wellness Visit (AWV) [facility] Start: 12-29-2024 Annual PCP Team Computer Aided Drafter oxana Disease Visit Annual PCP Team Chronic Disease Visit [facility] Start: 12-21-2024 Glaucoma screening Dilated Retinal E xam [facility] Start: 12-20-2024 End: 03-21-2025 Magnesium [Mass/volume] in Serum or Plasma MAGNESIUM Lab Routine Hypomagnesemia Expected: 12/20/2024, Expires: 03/21/2025 [facility] Work Phone: Comment on above: Expected: 12/20/2024 , Expires: 03/21/2025 Start: 12-19-2024 End: 12-19-2024 Patient encounter procedure 12/19/2024 1:00 PM EST [facility] [address] [facility] [place] [address] Brenda Toth APRN.[employer] REFEREE [address] [facility] [id number] BP check [facility] Comment on above: BP check Start: 11-21-2024 End: 02-20-2025 CBC W Auto Differential panel - Blood [facility] Comment on above: Expected: 11/21/2024 , Expires: 02/20/2025 Start: 11-21-2024 End: 02-20-2025 Cobalamin (Vitamin B12) [Mass/volume] in Serum or Plasma [facility] Comment on above: Expected: 11/21/2024 , Expires: 02/20/2025 Start: 11-21-2024 End: 02-20-2025 Comprehensive metabolic 2000 panel - Serum or Plasma [facility] Comment on above: Expected: 11/21/2024 , Expires: 02/20/2025 Start: 11-21-2024 End: 02-20-2025 LIPID PANEL, NONFASTING [facility] Comment on above: Expected: 11/21/2024 , Expires: 02/20/2025 Start: 11-21-2024 End: 02-20-2025 Magnesium [Mass/volume] in Serum or Plasma [facility] Comment on above: Expected: 11/21/2024 , Expires: 02/20/2025 Start: 11-21-2024 End: 02-20-2025 Microalbumin/Creatinine [Mass Ratio] in Urine [facility] Work Phone: Comment on above: Expected: 11/21/2024 , Expires: 02/20/2025 Start: 11-21-2024 End: 02-20-2025 Thyrotropin [Units/volume] in Serum or Plasma [facility] Comment on above: Expected: 11/21/2024 , Expires: 02/20/2025 Start: 11-21-2024 End: 11-21-2024 Patient encounter procedure 11/21/2024 10:40 AM EST [facility] [address] [facility] [place] [address] Brenda Toth APRN.[employer] [address] [place] [address] 6 month follow up Family Medicine Lu Comment on above: 6 month follow up Start: 11-20-2024 Annual PCP Team Computer Aided Drafter oxana Disease Visit Annual PCP Team Chronic Disease Visit [facility] Start: 11-20-2024 Covid-19 Vaccine () Covid-19 Vaccine () [facility] Comment on above: Postponed from 06/19 (Declined at this time) Start: 11-20-2024 RSV Vaccine (1 - 1-d ose 60+ series) RSV Vaccine (1 - 1-dose 60+ series) [facility] Comment on above: Postponed from 10/05 (Declined at this time) Start: 11-20-2024 RSV Vaccine (1 - Ris k 60-74 years 1-dose series) RSV Vaccine (1 - Risk 60-74 years 1-dose series) [facility] Comment on above: Postponed from 10/05 (Declined at this time) Start: 11-17-2024 End: 11-17-2024 [facility] Start: 11-17-2024 [facility] Start: 10-28-2024 End: 10-28-2024 Patient encounter procedure 10/28/2024 3:40 PM EST Office Visit Podiatry [address] [place] [address] Darrel Contreras [address] [address] diabetic shoe Podiatry Comment on above: diabetic shoe Start: 10-19-2024 Advance Directive Discussion Advance Directive Discussion [facility] Start: 09-22-2024 End: 09-22-2024 Patient encounter procedure Mammogram Comment on above: Encounter for screen ing mammogram for breast cancer [Z12.31] annual Start: 09-17-2024 Annual PCP Team Computer Aided Drafter oxana Disease Visit Annual PCP Team Chronic Disease Visit [facility] Start: 08-19-2024 Hemoglobin A1c measurement HbA1C [facility] Start: 08-19-2024 End: 08-19-2024 Patient encounter procedure Mammogram Comment on above: Encounter for screen ing mammogram for breast cancer [Z12.31] Annual Start: 08-18-2024 End: 08-18-2024 Patient encounter procedure 08/18/2024 11:30 AM EDT Office Visit [address] [place] [id number] Genie Godinez MD [address] [place] [address] [address] [facility] [address] [place] [address] [facility] Start: 08-17-2024 Mammography Mammogram Screening [facility] Start: 08-17-2024 Screening for malign ant neoplasm of breast [facility] Start: 08-01-2024 End: 10-31-2024 Basic metabolic 2000 panel - Serum or Plasma BASIC METABOLIC PANEL Lab Routine Primary hypertension Expected: 08/01/2024, Expires: 10/31/2024 [facility] Work Phone: Comment on above: Expected: 08/01/2024 , Expires: 10/31/2024 Start: 08-01-2024 End: 10-31-2024 Magnesium [Mass/volume] in Serum or Plasma MAGNESIUM Lab Routine Primary hypertension Expected: 08/01/2024, Expires: 10/31/2024 [facility] Comment on above: Expected: 08/01/2024 , Expires: 10/31/2024 Start: 07-11-2024 Colonoscopy COLONOSCOPY [facility] Start: 07-11-2024 COLORECTAL CANCER SCREENING COLORECTAL CANCER SCREENING [facility] Start: 07-11-2024 Screening for malign ant neoplasm of colon [facility] Start: 06-24-2024 End: 07-17-2025 US Abdomen [facility] Work Phone: Comment on above: Expected: 06/24/2024 , Expires: 07/17/2025 Start: 06-24-2024 End: 06-24-2024 Patient encounter procedure 06/24/2024 9:15 AM EDT Appointment Radiology [address] [place] [address] Abdominal wall strain, initial encounter [S39.011A] Radiology Comment on above: Abdominal wall lorenai n, initial encounter [S39.011A] Start: 06-19-2024 COVID-19 Vaccine () COVID-19 Vaccine () [facility] Start: 06-19-2024 Covid-19 Vaccine () Covid-19 Vaccine () [facility] Start: 06-19-2024 Covid-19 Vaccine () Covid-19 Vaccine () [facility] Start: 06-19-2024 Influenza vaccination Influenza Vacc ine (#1) [facility] Start: 05-23-2024 Hemoglobin A1c measurement HbA1C [facility] Start: 05-22-2024 Hepatitis B screening URINE ALBUMIN:CREATININE RATIO [facility] Start: 05-22-2024 Hepatitis B surface antibody level LDL CHOLESTEROL [facility] Start: 05-22-2024 Lipid panel Lipid Panel [facility] Start: 05-22-2024 Urine screening for protein Diabetes: Urine Protein Screening [facility] Start: 05-20-2024 End: 05-20-2024 Patient encounter procedure 05/20/2024 10:20 AM EDT Office Visit Family Laci Leigh [address] [place], [place] [id number] Ron Duenas MD [address] [place], [place] [id number] 6 month follow up Family Laci Leigh Comment on above: 6 month follow up Start: 05-19-2024 ANNUAL PCP TEAM [employer] OXANA DISEASE VISIT ANNUAL PCP TEAM CHRONIC DISEASE VISIT [facility] Start: 05-19-2024 BP CONTROLLED (<130/80) BP CON TROLLED (<130/80) [facility] Start: 02-18-2024 End: 02-18-2024 Patient encounter procedure 02/18/2024 1:30 PM EDT Office Visit [address] [place] [phone] [place] [address] [place] [address] [address] [place], [place] [id number] [facility] Start: 02-16-2024 End: 02-15-2025 C reactive protein [Mass/volume] in Serum or Plasma C-Reactive Protein Lab Routine Systemic lupus erythematosus, unspecified SLE type, unspecified organ involvement status (Multi) Expected: 02/16/2024, Expires: 02/15/2025 [facility] Work Phone: Comment on above: Expected: 02/16/2024 , Expires: 02/15/2025 Start: 02-16-2024 End: 02-15-2025 CBC W Auto Differential panel - Blood CBC and Auto Differential Lab Routine Systemic lupus erythematosus, unspecified SLE type, unspecified organ involvement status (Multi) Expected: 02/16/2024 (Approximate), Expires: 02/15/2025 [facility] Work Phone: Comment on above: Expected: 02/16/2024 (Approximate), Expires: 02/15/2025 Start: 02-16-2024 End: 02-15-2025 Complement C3 [Mass/volume] in Serum or Plasma C3 Complement Lab Routine Systemic lupus erythematosus, unspecified SLE type, unspecified organ involvement status (Multi) Expected: 02/16/2024 (Approximate), Expires: 02/15/2025 [facility] Work Phone: Comment on above: Expected: 02/16/2024 (Approximate), Expires: 02/15/2025 Start: 02-16-2024 End: 02-15-2025 Complement C4 [Mass/volume] in Serum or Plasma C4 Complement Lab Routine Systemic lupus erythematosus, unspecified SLE type, unspecified organ involvement status (Multi) Expected: 02/16/2024 (Approximate), Expires: 02/15/2025 [facility] Work Phone: Comment on above: Expected: 02/16/2024 (Approximate), Expires: 02/15/2025 Start: 02-16-2024 End: 02-15-2025 Comprehensive metabolic 2000 panel - Serum or Plasma Comprehensive Metabolic Panel Lab Routine Systemic lupus erythematosus, unspecified SLE type, unspecified organ involvement status (Multi) Expected: 02/16/2024 (Approximate), Expires: 02/15/2025 [facility] Work Phone: Comment on above: Expected: 02/16/2024 (Approximate), Expires: 02/15/2025 Start: 02-16-2024 End: 02-15-2025 DNA double strand Ab [Units/volume] in Serum Anti-DNA Antibody, Double-Stranded Lab Routine Systemic lupus erythematosus, unspecified SLE type, unspecified organ involvement status (Multi) Expected: 02/16/2024 (Approximate), Expires: 02/15/2025 [facility] Service Area Work Phone: Comment on above: Expected: 02/16/2024 (Approximate), Expires: 02/15/2025 Start: 02-16-2024 End: 02-15-2025 Erythrocyte sedimentation rate Sedimentation Rate Lab Routine Systemic lupus erythematosus, unspecified SLE type, unspecified organ involvement status (Multi) Expected: 02/16/2024, Expires: 02/15/2025 [facility] Work Phone: Comment on above: Expected: 02/16/2024 , Expires: 02/15/2025 Start: 12-18-2023 ANNUAL PCP TEAM [employer] OXANA DISEASE VISIT ANNUAL PCP TEAM CHRONIC DISEASE VISIT [facility] Start: 11-22-2023 Hemoglobin A1c measurement HbA1C [facility] Start: 11-22-2023 Hemoglobin A1c/Hemoglobin.total in Blood HBA1C [facility] Start: 11-20-2023 Glaucoma screening Dilated Retinal E xam [facility] Start: 11-20-2023 Hepatitis C antibody , confirmatory test DILATED RETINAL EXAM [facility] Start: 11-19-2023 3 comp foot exam completed DIABETIC FOOT EXAM [facility] Start: 11-19-2023 ANNUAL PCP TEAM [employer] OXANA DISEASE VISIT ANNUAL PCP TEAM CHRONIC DISEASE VISIT [facility] Start: 11-19-2023 COVID-19 VACCINE (4 - Booster for Pfizer series) COVID-19 VACCINE (4 - Booster for Pfizer series) [facility] Comment on above: Postponed from 04/12 (Declined at this time) Start: 11-19-2023 COVID-19 VACCINE (4 - Pfizer series) COVID-19 VACCINE (4 - Pfizer series) [facility] Comment on above: Postponed from 04/12 (Declined at this time) Start: 11-19-2023 Diabetic foot examination Diabetic Foot Exam [facility] Start: 10-19-2023 Advance Directive Discussion Advance Directive Discussion [facility] Start: 08-22-2023 Hemoglobin A1c measurement Diabetes: Hemoglobin A1C [facility] Start: 08-20-2023 FUV, Provider: Genie Godinez, Status: Pen, Time: 1:30 PM FUV, Provider: Genie Godinez, Status: Pen, Time: 1:30 PM [facility] Work Phone: Start: 08-20-2023 End: 08-20-2023 ambulatory 08/20/2023 2:00 PM EDT Lab [address] [phone] Systemic lupus erythematosus, unspecified SLE type, unspecified organ involvement status (CMS/HCC) [facility] Comment on above: Systemic lupus eryth ematosus, unspecified SLE type, unspecified organ involvement status ([facility]/HCC) Start: 08-20-2023 End: 08-20-2024 C reactive protein [Mass/volume] in Serum or Plasma [facility] Work Phone: Comment on above: Expected: 08/20/2023 (Approximate), Expires: 08/20/2024 Start: 08-20-2023 End: 08-20-2024 CBC W Auto Differential panel - Blood [facility] Work Phone: Comment on above: Expected: 08/20/2023 , Expires: 08/20/2024 Start: 08-20-2023 End: 08-20-2024 Complement C3 [Mass/volume] in Serum or Plasma [facility] Work Phone: Comment on above: Expected: 08/20/2023 , Expires: 08/20/2024 Start: 08-20-2023 End: 08-20-2024 Complement C4 [Mass/volume] in Serum or Plasma [facility] Work Phone: Comment on above: Expected: 08/20/2023 , Expires: 08/20/2024 Start: 08-20-2023 End: 08-20-2024 Comprehensive metabolic 2000 panel - Serum or Plasma [facility] Work Phone: Comment on above: Expected: 08/20/2023 , Expires: 08/20/2024 Start: 08-20-2023 End: 08-20-2024 DNA double strand Ab [Units/volume] in Serum [facility] Service Area Work Phone: Comment on above: Expected: 08/20/2023 , Expires: 08/20/2024 Start: 08-20-2023 End: 08-20-2024 Erythrocyte sedimentation rate [facility] Work Phone: Comment on above: Expected: 08/20/2023 (Approximate), Expires: 08/20/2024 Start: 08-14-2023 Mammography [facility] Start: 08-14-2023 End: 09-13-2023 Screening mammography bi 2-view breast inc cad CIARAN SCREENING Radiology Routine Encounter for screening mammogram for breast cancer Expected: 08/14/2023, Expires: 09/13/2023 [facility] Work Phone: Comment on above: Expected: 08/14/2023 , Expires: 09/13/2023 Start: 06-19-2023 COVID-19 Vaccine () COVID-19 Vaccine () [facility] Start: 06-19-2023 Covid-19 Vaccine ( season) Covid-19 Vaccine () [facility] Start: 06-19-2023 Influenza vaccination C [facility] Start: 03-12-2023 Adult depression screening assessment DEPRESSION SCREENING [facility] Start: 03-12-2023 ANNUAL PCP TEAM [employer] OXANA DISEASE VISIT ANNUAL PCP TEAM CHRONIC DISEASE VISIT [facility] Start: 02-19-2023 FUV, Provider: Genie Godinez, Status: Pen, Time: 3:00 PM FUV, Provider: Genie Godinez, Status: Harlan, Time: 3:[address] [facility] Work [facility]: Start: 12-12-2022 Hemoglobin A1c/Hemoglobin.total in Blood HBA1C [facility] Start: 11-20-2022 End: 01-20-2023 Magnesium [Mass/volume] in Serum or Plasma MAGNESIUM BLD Lab Routine Hypomagnesemia Expected: 11/20/2022, Expires: 01/20/2023 [facility] Work Phone: Comment on above: Expected: 11/20/2022 , Expires: 01/20/2023 Start: 11-19-2022 Patient referral [facility] Work Phone: Start: 11-18-2022 Ultrasonography of abdomen Abdomen Limited [facility] Start: 11-18-2022 Ultrasound elastography [facility] Start: 11-18-2022 US Abdomen limited [facility] Start: 11-12-2022 Hepatitis C antibody , confirmatory test DILATED RETINAL EXAM [facility] Start: 10-22-2022 Colonoscopy w/biopsy single/multiple COLONOSCOPY AND BIOPSY [facility] Start: 10-22-2022 Colsc flx with direc nahomy submucosal njx any sbst COLONOSCOPY SUBMUCOUS NJX [facility] Start: 10-22-2022 Egd transoral biopsy single/multiple EGD BIOPSY SINGLE/MULTIPLE [facility] Start: 10-22-2022 Patient discharge [facility] Start: 10-19-2022 3 comp foot exam completed DIABETIC FOOT EXAM [facility] Start: 10-19-2022 ADVANCE DIRECTIVE DISCUSSION ADVANCE DIRECTIVE DISCUSSION [facility] Start: 10-19-2022 DEPRESSION ASSESSMENT DEPRESSION ASS ESSMENT [facility] Start: 09-18-2022 Hepatitis B surface antibody level LDL CHOLESTEROL [facility] Start: 08-21-2022 FUV, Provider: Genie Godinez, Status: Harlan, Time: 3:00 PM FUV, Provider: Genie Godinez, Status: Harlan, Time: 3:00 PM [employer] [facility] Work Phone: Start: 08-12-2022 Mammography MAMMOGRAM [facility] Start: 08-12-2022 Screening for malign ant neoplasm of cervix Cervical Cancer Screening [facility] Start: 06-19-2022 Influenza vaccination INFLUENZA (#1) [facility] Start: 05-17-2022 COVID-19 VACCINE (4 - Booster for Pfizer series) COVID-19 VACCINE (4 - Booster for Pfizer series) [facility] Start: 05-10-2022 COVID-19 VACCINE (4 - Booster for Pfizer series) COVID-19 VACCINE (4 - Booster for Pfizer series) [facility] Start: 04-12-2022 COVID-19 VACCINE (4 - Booster for Pfizer series) COVID-19 VACCINE (4 - Booster for Pfizer series) [facility] Start: 03-19-2022 Hemoglobin A1c/Hemoglobin.total in Blood HBA1C [facility] Start: 03-12-2022 Hepatitis B screening URINE ALBUMIN:CREATININE RATIO [facility] Start: 02-20-2022 FUV, Provider: Genie Godinez, Status: Pen, Time: 3:00 PM FUV, Provider: Genie Godinez, Status: Pen, Time: 3:[address] [facility] Work Phone: Start: 01-29-2022 FUV, Provider: Genie Godinez, Status: Pen, Time: 1:15 PM FUV, Provider: Genie Godinez, Status: Pen, Time: 1:15 PM [employer] Work Phone: Start: 01-02-2022 COVID-19 Vaccine (2 - Pfizer series) COVID-19 Vaccine (2 - Pfizer series) [facility] Start: 10-19-2021 DEPRESSION ASSESSMENT DEPRESSION ASS ESSMENT [facility] Start: 08-05-2021 FUV, Provider: Genie Godinez, Status: Pen, Time: 2:15 PM FUV, Provider: Genie Godinez, Status: Pen, Time: 2:15 PM [employer] Work Phone: Start: 04-08-2021 FUV, Provider: Genie Godinez, Status: Pen, Time: 1:15 PM FUV, Provider: Genie Godinez, Status: Pen, Time: 1:15 PM [employer] Work Phone: Start: 04-06-2020 PNEUMOCOCCAL: 65+ (2 - PCV) PNEUMOCOCCAL: 65+ (2 - PCV) [facility] Start: 07-29-2017 End: 07-29-2017 *CMP Complete Metabolic Panel *CMP Complete Metabolic Panel [facility] Work Phone: Start: 07-29-2017 End: 07-29-2017 Hemoglobin A1c/Hemoglobin.total mass fraction (Bld) [facility] Work Phone: Start: 07-29-2017 End: 07-29-2017 Lipid 1996 panel *Lipid Profile [facility] Work Phone: Start: 07-29-2017 End: 07-29-2017 Thyrotropin Qn *TSH [facility] Work Phone: Start: 07-29-2017 End: 07-29-2017 Appointment Appointment [facility] Work Phone: Start: 2015 Hepatitis B Vaccine (1 of 3 - Risk 3-dose series) Hepatitis B Vaccine (1 of 3 - Risk 3-dose series) [facility] Start: 2015 Hepatitis B Vaccines (1 of 3 - Risk 3-dose series) Hepatitis B Vaccines (1 of 3 - Risk 3-dose series) [facility] Start: 2015 RSV High Risk: (Elde rly (60+) or Population) (1 - Risk 60-74 years 1-dose series) RSV High Risk: (Elderly (60+) or Population) (1 - Risk 60-74 years 1-dose series) [facility] Start: 2015 RSV patient s and/or patients aged 60+ years (1 - 1-dose 60+ series) RSV patients and/or patients aged 60+ years (1 - 1-dose 60+ series) [facility] Start: 2015 RSV Vaccine (1 - 1-d ose 60+ series) RSV Vaccine (1 - 1-dose 60+ series) [facility] Start: 2015 RSV Vaccine (1 - Ris k 60-74 years 1-dose series) RSV Vaccine (1 - Risk 60-74 years 1-dose series) [facility] Start: 2005 SHINGRIX VACCINE (1 of 2) SHINGRIX VACCINE (1 of 2) [facility] Start: 2005 Zoster Vaccines (1 o f 2) Zoster Vaccines (1 of 2) [facility] Start: 2000 COLOGUARD (FIT-DNA) COLOGUARD (FIT-D NA) [facility] Start: [address] COLONOGRAPHY [facility] Start: 2000 FECAL OCCULT BLOOD FECAL OCCULT BLOO D [facility] Start: 2000 Screening for malign ant neoplasm of colon [facility] Start: 2000 SIGMOIDOSCOPY SIGMOIDOSCOPY [facility] Start: 1977 DTaP/Tdap/Td Vaccine s (1 - Tdap) DTaP/Tdap/Td Vaccines (1 - Tdap) [facility] Start: 1974 Hepatitis A Vaccines (1 of 2 - Risk 2-dose series) Hepatitis A Vaccines (1 of 2 - Risk 2-dose series) [facility] Start: 1974 SHINGRIX VACCINE (1 of 2) SHINGRIX VACCINE (1 of 2) [facility] Start: 1974 Urine microalbumin profile DTAP,TDAP,TD (1 - Tdap) [facility] Start: 1973 BP CONTROLLED (<130/80) BP CON TROLLED (<130/80) [facility] Start: 1973 HEPATITIS C SCREENING HEPATITIS C [facility] Start: 1973 Hepatitis C screening Hepatitis C [facility] Start: 1965 Diabetic foot examination Diabetes: Foot Exam [facility] Start: 1965 Glaucoma screening Diabetes: R etinopathy Screening [facility] Start: 1965 Hepatitis C antibody , confirmatory test DILATED RETINAL EXAM [facility] Start: 1955 Lipid panel Lipid Panel [facility] Start: 1955 Medicare Annual Wellness Visit Medicare Annual Wellness Visit (AWV) [facility] Start: 1955 Screening for malign ant neoplasm of colon [facility] ALT [Catalytic activity/Vol] ALT - Alanine Aminotransferase, Serum [employer] Work Phone: Comment on above: With next appointmen t AST [Catalytic activity/Vol] AST [employer] Work Phone: Comment on above: With next appointmen t Blood count complete auto&auto difrntl wbc Complete Blood Count + Differential [employer] Work Phone: Comment on above: With next appointmen t C reactive protein [Mass/volume] in Serum or Plasma [facility] Catheterization of l eft heart [facility] Work Phone: CBC W Auto Different ial panel - Blood [facility] Colonoscopy [facility] Work Phone: Complement antigen e ach component [employer] Work Phone: Comment on above: With next appointmen t Comprehensive metabo lic 2000 panel - Serum or Plasma [facility] Creatinine measureme nt, serum Creatinine, Serum [employer] Work Phone: Comment on above: With next appointmen t Creatinine other source Creatinine, Urine Spot [employer] Work Phone: Comment on above: With next appointmen t CT Abdomen and Pelvi s W contrast IV [facility] Work Phone: End: 10-22-2025 DBT Breast - bilateral screening CIARAN SCREENING W DAVID Radiology Routine Encounter for gynecological examination (general) (routine) without abnormal findings Encounter for screening mammogram for breast cancer 1 Occurrences starting 09/22/2024 until 10/22/2025 [facility] Work Phone: Comment on above: 1 Occurrences starti ng 09/22/2024 until 10/22/2025 End: 09-15-2024 DXA-AXIAL SKELETON DXA-AXIAL SKELETON Radiology Routine Encounter for screening mammogram for breast cancer 1 Occurrences starting 08/17/2023 until 09/15/2024 [facility] Work Phone: Comment on above: 1 Occurrences starti ng 08/17/2023 until 09/15/2024 End: 03-12-2023 ECG COMPLETE ECG COMPLETE ECG Routine Chest pain, unspecified type 1 Occurrences starting 03/12/2022 until 03/12/2023 [facility] Work Phone: Comment on above: 1 Occurrences starti ng 03/12/2022 until 03/12/2023 Extractable nuclear antigen antibody any method Anti-dsDNA (Double Stranded) Antibodies [employer] Work Phone: Comment on above: With next appointmen t Lipid 1996 panel - Serum or Plasma [facility] Liver stiffness by US.transient elastography [facility] End: 09-15-2024 CIARAN SCREENING CIARAN SCREENING Radiology Routine Encounter for screening mammogram for breast cancer 1 Occurrences starting 08/17/2023 until 09/15/2024 [facility] Work Phone: Comment on above: 1 Occurrences starti ng 08/17/2023 until 09/15/2024 NM CARDIAC PERF STRESS/PHARM NM CARDIAC PERF STRESS/PHARM Radiology Routine Chest pain, unspecified type Type 2 diabetes mellitus with diabetic polyneuropathy, without long-term current use of insulin (HCC) Primary hypertension Family hx of ischem heart dis and oth dis of the circ sys Ordered: 03/12/2022 [facility] Work Phone: Comment on above: Ordered: 03/12/2022 PAP TEST PAP TEST Lab Rou mackenzie Encounter for gynecological examination (general) (routine) without abnormal findings Encounter for screening for human papillomavirus (HPV) Pap smear for cervical cancer screening 09/22/2024 11:58 AM EST [facility] Patient Education [facility] Work Phone: Patient referral [facility] Work Phone: Protein (U) [Mass/Vol] Total Pro tein, Urine Spot [employer] Work Phone: Comment on above: With next appointmen t Protein [Mass/Vol] C Reactive Pr otein, Serum [employer] Work Phone: Comment on above: With next appointmen t Prothrombin time [facility] Sedimentation rate r automated Sedimentation Rate, Erythrocyte [employer] Work Phone: Comment on above: With next appointmen t Thyroid stimulating hormone measurement [facility] Urea nitrogen [Mass/Vol] Blood Urea Nitrogen, Serum [employer] Work Phone: Comment on above: With next appointmen t End: 06-19-2025 XR Lumbar spine 3 Views XR LUMBAR GENERAL 3V AP/LAT/L5-S1 Radiology Routine Left sided sciatica 1 Occurrences starting 05/20/2024 until 06/19/2025 [facility] Work Phone: Comment on above: 1 Occurrences starti ng 05/20/2024 until 06/19/2025 XR Lumbar spine 3 Views XR LUMBA R GENERAL 3V AP/LAT/L5-S1 Radiology Routine Left sided sciatica 05/20/2024 11:28 AM EDT [facility] NEGATED: Highlighted row has been ruled out! Planned Goals not documented [employer] Work Phone: Immunizations Immunization Date Immunization Notes Care Provider [facility] 11-20-2023 influenza (HD-IIV4) vaccine, age 65+ yr, high dose, quadrivalent, PF (FLUZONE HIGH-DOSE) Ron Duenas MD Work Phone: [facility] 11-20-2023 influenza virus vacc ine, unspecified formulation Ron Duenas MD Work Phone: [facility] 11-19-2022 pneumococcal (PCV20) vaccine, 20 valent (PREVNAR 20) Ron Duenas MD Work Phone: [facility] 08-21-2022 Fluzone High-Dose Quadrivalent 0.7 ML Intramuscular Suspension Prefilled Syringe; Translations: [Fluzone High-Dose Quadrivalent 0.7 ML Intramuscular Suspension Prefilled Syringe] Ron Duenas Work Phone: [facility] Comment on above: Series: 08-21-2022 influenza nasal, unspecified formulation Ron Duenas MD Work Phone: [facility] 08-21-2022 influenza virus vacc ine, unspecified formulation Agnieszka Garrisoncalf AMADOR Work Phone: [facility] 02-15-2022 Pfizer-BioNTech COVI D-19 Vacc 30 MCG/0.3ML Intramuscular Suspension Ron Duenas Work Phone: [facility] Comment on above: Series: 11-07-2021 Comirnaty 30 MCG/0.3 ML Intramuscular Suspension Valentin Arredondo Work Phone: [facility] Work Phone: 10-17-2021 Pfizer-BioNTech COVI D-19 Vacc 30 MCG/0.3ML Intramuscular Suspension Valentin Arredondo Work Phone: [facility] Work Phone: 08-12-2021 Fluzone High-Dose Quadrivalent 0.7 ML Intramuscular Suspension Prefilled Syringe Valentin Arredondo Work Phone: [facility] 04-06-2019 pneumococcal polysaccharide vaccine, 23 valent Valentin Arredondo Work Phone: [facility] 08-13-2016 influenza, seasonal, injectable, preservative free; Translations: [Fluarix 0.5 ML JOSE] Genie Godinez [facility] Comment on above: Series: 08-13-2016 influenza nasal, unspecified formulation Ron Duenas MD Work Phone: [facility] 08-13-2016 influenza virus vacc ine, unspecified formulation Genie Godinez MD Work Phone: [facility] Work Phone: Payers Date Payer Category Payer Unknown [id number] 2024 Self-pay [id number] 2023 Private Health Insurance [facility] DUAL COMPLETE [facility] DUAL COMPLETE [id number] 2023-Present [address] [address] [place] [address] [id number] 2023 Medicaid [id number] 2023 Medicaid [id number] 2022 Medicare (Managed Care) 1.2. [id number] 2022 Unknown [id number] 2021 Medicare UHC MEDICARE UHC DUAL COMPLETE HMO SNP [id number] 2021-Present [phone] [address] [place] [address] Medicare [id number] 2021 Medicare [id number] 2016 Unknown [id number] 1998 Medicare [id number] 1955 Unknown [id number]. 356 1955 Unknown [id number] [id number]. 356 1955 Unknown [id number]. 1245 1955 Unknown [id number]. 1244 Unknown Unknown [id number] [id number]. 462 Unknown [id number] 2.16.840.1.541073.3.579.2. 462 Unknown [id number] [id number]. 462 Unknown [id number] 2.16.840.1.768788.3.579.2. 462 Unknown [id number] [id number]. 462 Unknown [id number] 2.16.840.1.301804.3.579.2. 462 Unknown [id number] [id number]. 462 Unknown [id number] [id number]. 462 Unknown [id number] [id number]. 462 Unknown [id number] [id number]. 462 Unknown [id number]. 462 Social History Date Type Detail Facility Start: 12-17-2022 End: 04-27-2025 [facility] Work Phone: Start: 01-07-2013 End: 08-18-2023 Tobacco smoking status NHIS Never smoked tobacco [facility] Start: 03-12-2022 End: 02-21-2025 Alcohol intake Current non-drinker of alcohol (finding) [facility] Start: 1955 Sex Assigned At Female C [facility] Start: 03-02-2022 End: 02-16-2024 Exposure to SARS-CoV-2 (event) Not sure [facility] Start: 12-05-2021 End: 12-09-2023 Tobacco smoking status NHIS Unknown if ever smoked [facility] Start: 07-07-2019 Non-smoker [facility] Start: 01-07-2013 End: 08-18-2023 Tobacco use and exposure Smokeless tobacco non-user [facility] Work Phone: Start: 12-17-2022 End: 04-27-2025 Tobacco use panel [facility] Work Phone: Adult Depression Screening Assessment 0 [facility] Work Phone: Start: 11-05-2021 Gender identity Identifies as female gender (finding) [facility] Start: 11-05-2021 Sexual orientation Heterosexual (fin ding) [facility] History of tobacco use Passive smoker [facility] Work Phone: Start: 08-20-2023 End: 04-27-2025 Alcohol intake Lifetime non-drinker (finding) [facility] Work Phone: Start: 03-20-2014 None [facility] Start: 03-20-2014 Spouse/ Signif icant Other [facility] Start: 01-23-2025 Sex Female (finding) [facility] NEGATED: Highlighted row - [facility] Work Phone: NEGATED: Highlighted row [facility] Medical Equipment Procedure Code Equipment Code Equipment Origin al Text Equipment Identifier Dates [id number], [id number] Start: 09-17-2021 Comment on above: Test blood sugar(s) bid times daily. Dx: Type 2 DM - Controlled E11.9 Insulin: No Blood Sugar Diagnostic (Onetouch Verio Test Strips) strip Start: 12-05-2021 Blood Sugar Diagnostic (Onetouch Verio Test Strips) strip Start: 12-05-2021 Blood Sugar Diagnostic (Onetouch Verio Test Strips) strip Start: 12-05-2021 Blood Sugar Diagnostic (Onetouch Verio Test Strips) strip Start: 12-05-2021 Blood Sugar Diagnostic (Onetouch Verio Test Strips) strip Start: 12-05-2021 Blood Sugar Diagnostic (Onetouch Verio Test Strips) strip Start: 12-05-2021 Blood Sugar Diagnostic (Onetouch Verio Test Strips) strip Start: 09-23-2022 Blood Sugar Diagnostic (Onetouch Verio Test Strips) strip Start: 12-05-2021 End: 09-23-2022 Blood Sugar Diagnostic (Onetouch Verio Test Strips) strip Start: 09-23-2022 Blood Sugar Diagnostic (Onetouch Verio Test Strips) strip Start: 12-05-2021 End: 09-23-2022 Blood Sugar Diagnostic (Onetouch Verio Test Strips) strip Start: 09-23-2022 Blood Sugar Diagnostic (Onetouch Verio Test Strips) strip Start: 12-05-2021 End: 09-23-2022 Blood Sugar Diagnostic (Onetouch Verio Test Strips) strip Start: 09-23-2022 Blood Sugar Diagnostic (Onetouch Verio Test Strips) strip Start: 12-05-2021 End: 09-23-2022 Blood Sugar Diagnostic (Onetouch Verio Test Strips) strip Start: 06-24-2023 Blood Sugar Diagnostic (Onetouch Verio Test Strips) strip Start: 12-05-2021 End: 09-23-2022 Blood Sugar Diagnostic (Onetouch Verio Test Strips) strip Start: 09-23-2022 End: 06-24-2023 Blood Sugar Diagnostic (Onetouch Verio Test Strips) strip Start: 06-24-2023 Blood Sugar Diagnostic (Onetouch Verio Test Strips) strip Start: 12-05-2021 End: 09-23-2022 Blood Sugar Diagnostic (Onetouch Verio Test Strips) strip Start: 09-23-2022 End: 06-24-2023 Blood Sugar Diagnostic (Onetouch Verio Test Strips) strip Start: 08-24-2024 Blood Sugar Diagnostic (Onetouch Verio Test Strips) strip Start: 12-05-2021 End: 09-23-2022 Blood Sugar Diagnostic (Onetouch Verio Test Strips) strip Start: 09-23-2022 End: 06-24-2023 Blood Sugar Diagnostic (Onetouch Verio Test Strips) strip Start: 06-24-2023 End: 08-24-2024 Blood Sugar Diagnostic (Onetouch Verio Test Strips) strip Start: 08-24-2024 Blood Sugar Diagnostic (Onetouch Verio Test Strips) strip Start: 12-05-2021 End: 09-23-2022 Blood Sugar Diagnostic (Onetouch Verio Test Strips) strip Start: 09-23-2022 End: 06-24-2023 Blood Sugar Diagnostic (Onetouch Verio Test Strips) strip Start: 06-24-2023 End: 08-24-2024 Goals Date Patient Goal Desired Activity /State Functional Status Date Assessment Result Facility 04-27-2025 Patient Health Questionnaire 2 item (PHQ-2) [Reported] [facility] Work Phone: 05-09-2015 Are you deaf, or do you have serious difficulty hearing No 05/09/2015 12:26 PM Tessie Velázquez RN [facility] Work Phone: 05-09-2015 Are you blind, or do you have serious difficulty seeing, even when wearing glasses No 05/09/2015 12:26 PM Tessie Velázquez RN [facility] 05-09-2015 Do you have serious difficulty walking or climbing stairs No 05/09/2015 12:26 PM Tessie Velázquez RN [facility] 05-09-2015 Do you have difficul ty dressing or bathing No 05/09/2015 12:26 PM Tessie Velázquez RN [facility] 05-09-2015 Because of a physica l, mental, or emotional condition, do you have difficulty doing errands alone such as visiting a physician's office or shopping No 05/09/2015 12:26 PM Tessie Velázquez RN [facility] NEGATED: Highlighted row Functional performance Functional status health issues are not documented Disease [employer] Work Phone: Mental Status Date Assessment Result Facility 11-17-2024 Cognitive function Level Of Cons ciousness Awake;Alert;Appropriate [facility] Work Phone: 10-22-2022 Cognitive function Voice/Name [facility] Work Phone: 05-09-2015 Because of a physical, mental, or emotional condition, do you have serious difficulty concentrating, remembering, or making decisions No 05/09/2015 12:26 PM EDT Tessie Manning RN No [facility] NEGATED: Highlighted row Cognitive function [Interpretation] Cognitive status health issues are not documented Disease [facility] Work Phone: Clinical Notes 04-10-2021 to 04-27-2025 Assessment & Plan Note - Genie Godinez MD - 04/27/2025 4:00 PM EDTAssessment & Plan Note - Genie Godinez MD - 04/27/2025 4:00 PM EDTMmarilia Godinez MD - 04/27/2025 4:00 PM EDT Note Date & Type Note Facility 04-27-2025 Evaluation + Plan note Associated Problem(s): Portal hypertension (Multi) No clinical signs of disease progression since last visit. No increase in symptoms Recent labs/imaging/procedures reviewed Medical records reviewed Disease process and pertinent med refills are managed by specialist and PCP. I reviewed that no conflict in medications with the current condition I am treating [facility] Work Phone: 04-27-2025 Evaluation + Plan note Associated Problem(s): Systemic lupus erythematosus (Multi) Currently off treatmend. Has more musculoskeletal issues. Labs ordered today to monitor for increased disease activity, end organ manifestations and if ok, restart etodolac Orders: Anti-DNA Antibody, Double-Stranded; Future C3 Complement; Future C4 Complement; Future CBC and Auto Differential; Future Comprehensive Metabolic Panel; Future C-Reactive Protein; Future Sedimentation Rate; Future Follow Up In Rheumatology; Future [facility] Work Phone: 04-27-2025 Evaluation + Plan note Associated Problem(s): NSAID long-term use Orders: Follow Up In Rheumatology; Future [facility] Work Phone: 04-27-2025 Evaluation + Plan note Associated Problem(s): Class 3 severe obesity due to excess calories with serious comorbidity and body mass index (BMI) of 50.0 to 59.9 in adult Current weight: 138 kg (304 lb 4.8 oz) Weight change since last visit (-) denotes wt loss 5.5 lbs Weight loss needed to achieve BMI 25: 154.4 Lbs Weight loss needed to achieve BMI 30: 124.4 Lbs [facility] Work Phone: 04-27-2025 History of Present illness Narrative Images from the original note were not included. [facility]NAL [facility]IC[facility] RHEUMATOLOGY PROGRESS NOTE Vilma Dial 69 y.o. female : 1955 PCP: Ron Duenas MD Chief Complaint Patient presents with Lupus SUBJECTIVE Not seen in over a year (out of network for insurance). Didn't establish with another rheum in the intervening period. Reports more pain and notes more swelling in fingers. Has been off etodolac since she was told it could be affecting her heart. She states she had a heart cath that was ok but was never told to restart it. States she did well when she was on etodolac. No worsening rashes. Feels she has been in a flare since the spring with the all the rainy weather we had Records since last seen [facility] Record Patient Active Problem List Diagnosis Date Noted Nonalcoholic steatohepatitis (KOTHARI) 11/20/2023 Degenerative disc disease, lumbar 08/18/2023 Diabetes mellitus (Multi) 08/18/2023 Fibromyalgia 08/18/2023 Hyperlipidemia 08/18/2023 Hypertension 08/18/2023 Primary insomnia 08/18/2023 Primary osteoarthritis of both knees 08/18/2023 Systemic lupus erythematosus (Multi) 08/18/2023 Vitamin D deficiency 08/18/2023 NSAID long-term use 08/18/2023 Class 3 severe obesity due to excess calories with serious comorbidity and body mass index (BMI) of 45.0 to 49.9 in adult 08/18/2023 Portal hypertension (Multi) 05/19/2023 Medical History[1] Medications Ordered Prior to Encounter[2] RX Allergies[3] Social History[4] Review of Systems Constitutional: Positive for fatigue. Negative for fever. HENT: Negative. Eyes: Negative. Respiratory: Negative for cough and shortness of breath. Cardiovascular: Negative for leg swelling. Gastrointestinal: Negative. Endocrine: Negative. Genitourinary: Negative. Musculoskeletal: Positive for arthralgias and joint swelling. Negative for back pain, gait problem and myalgias. Skin: Negative for color change and rash. Neurological: Negative for weakness and numbness. Psychiatric/Behavioral: Negative. PHYSICAL EXAM BP 160/77 Pulse 85 Temp 36.6 C (97.9 F) Ht 1.651 m (5' 5) Wt 138 kg (304 lb 4.8 oz) SpO2 95% BMI 50.64 kg/m Depression: Not at risk (04/27/2025) PHQ-2 PHQ-2 Score: 0 Physical Exam Vitals reviewed. Constitutional: General: She is not in acute distress. Appearance: Normal appearance. HENT: Head: Normocephalic and atraumatic. Eyes: General: No scleral icterus. Extraocular Movements: Extraocular movements intact. Conjunctiva/sclera: Conjunctivae normal. Pupils: Pupils are equal, round, and reactive to light. Pulmonary: Effort: Pulmonary effort is normal. No respiratory distress. Musculoskeletal: General: Swelling, tenderness (knees with medial joint tenderness) and deformity (OA changes in hands --increase in number of joints involved) present. Cervical back: Normal range of motion and neck supple. No tenderness. Right lower leg: No edema. Left lower leg: No edema. Comments: No synovitis of examined joints Skin: Coloration: Skin is not pale. Findings: No erythema or rash. Neurological: General: No focal deficit present. Mental Status: She is alert and oriented to person, place, and time. Mental status is at baseline. Gait: Gait normal. Psychiatric: Mood and Affect: Mood normal. Health Maintenance Topic Date Due Diabetes: Retinopathy Screening Never done Hepatitis A Vaccines (1 of 2 - Risk 2-dose series) Never done DTaP/Tdap/Td Vaccines (1 - Tdap) Never done Zoster Vaccines (1 of 2) Never done RSV High Risk: (Elderly (60+) or Population) (1 - Risk 60-74 years 1-dose series) Never done Hepatitis B Vaccines (1 of 3 - Risk 3-dose series) Never done Diabetes: Hemoglobin A1C 08/22/2023 Lipid Panel 05/22/2024 COVID-19 Vaccine ( season) 2024 Medicare Annual Wellness Visit (AWV) 12/30/2024 Influenza Vaccine (1) 06/19/2025 Mammogram 09/22/2025 Diabetes: Urine Protein Screening 11/21/2025 Colorectal Cancer Screening 07/11/2029 HPV Vaccines (No Doses Required) Completed Pneumococcal Vaccine Completed Bone Density Scan Completed Hepatitis C Screening Addressed HIB Vaccines Aged Out IPV Vaccines Aged Out Meningococcal Vaccine Aged Out Rotavirus Vaccines Aged Out Assessment/plan Assessment & Plan Systemic lupus erythematosus, unspecified SLE type, unspecified organ involvement status (Multi) Currently off treatmend. Has more musculoskeletal issues. Labs ordered today to monitor for increased disease activity, end organ manifestations and if ok, restart etodolac Orders: Anti-DNA Antibody, Double-Stranded; Future C3 Complement; Future C4 Complement; Future CBC and Auto Differential; Future Comprehensive Metabolic Panel; Future C-Reactive Protein; Future Sedimentation Rate; Future Follow Up In Rheumatology; Future NSAID long-term use Orders: Follow Up In Rheumatology; Future Class 3 severe obesity due to excess calories with serious comorbidity and body mass index (BMI) of 50.0 to 59.9 in adult Current weight: 138 kg (304 lb 4.8 oz) Weight change since last visit (-) denotes wt loss 5.5 lbs Weight loss needed to achieve BMI 25: 154.4 Lbs Weight loss needed to achieve BMI 30: 124.4 Lbs Portal hypertension (Multi) No clinical signs of disease progression since last visit. No increase in symptoms Recent labs/imaging/procedures reviewed Medical records reviewed Disease process and pertinent med refills are managed by specialist and PCP. I reviewed that no conflict in medications with the current condition I am treating Follow up: __6___months, sooner if change in symptoms Immunization History Administered Date(s) Administered COVID-19, mRNA, LNP-S, PF, 30 mcg/0.3 mL dose 10/17/2021 Flu vaccine, quadrivalent, high-dose, preservative free, age 65y+ (FLUZONE) 08/12/2021, 08/21/2022, 11/20/2023 Flu vaccine, trivalent, preservative free, age 6 months and greater (Fluarix/Fluzone/Flulaval) 08/13/2016 Influenza Nasal, Unspecified 08/21/2022 Influenza, Unspecified 08/13/2016 Pfizer Javed Cap SARS-CoV-2 11/07/2021 Pneumococcal conjugate vaccine, 20-valent (PREVNAR 20) 11/19/2022 Pneumococcal polysaccharide vaccine, 23-valent, age 2 years and older (PNEUMOVAX 23) 04/06/2019 Genie Godinez MD [1] Past Medical History: Diagnosis Date Anxiety disorder, unspecified Anxiety Does not use caffeine Encounter for monitoring of hydroxychloroquine therapy 08/18/2023 Fatty liver 11/19/2022 IBS (irritable bowel syndrome) History of irritable bowel syndrome Personal history of colonic polyps History of colonic polyps Portal hypertensive gastropathy (Multi) 05/19/2023 Post-traumatic stress disorder, unspecified PTSD (post-traumatic stress disorder) [2] Current Outpatient Medications on File Prior to Visit Medication Sig Dispense Refill baclofen (Lioresal) 10 mg tablet Take 1 tablet (10 mg) by mouth 3 times a day as needed. chlorthalidone (Hygroton) 25 mg tablet dapagliflozin propanediol (Farxiga) 10 mg Take 1 tablet (10 mg) by mouth once daily in the morning. Take before meals. diclofenac sodium 1 % kit APPLY FOUR TIMES EVERY DAY TO THE AFFECTED AREA(S) DIRECTED dicyclomine (Bentyl) 10 mg capsule Take 1 capsule (10 mg) by mouth 2 times a day. ergocalciferol, vitamin D2, 50 mcg (2,000 unit) tablet Take 2 tablets by mouth once daily. etodolac (Lodine) 400 mg tablet Take 1 tablet (400 mg) by mouth 2 times a day as needed. famotidine (Pepcid) 20 mg tablet fenofibrate (Tricor) 145 mg tablet glimepiride (Amaryl) 2 mg tablet Take by mouth. losartan (Cozaar) 100 mg tablet metFORMIN (Glucophage) 1,000 mg tablet Take 1 tablet (1,000 mg) by mouth 2 times daily (morning and late afternoon). metoprolol succinate XL (Toprol-XL) 50 mg 24 hr tablet multivitamin with minerals iron-free (Centrum Silver) Take 1 tablet by mouth once daily. nefazodone (Serzone) 200 mg tablet Take 1 tablet (200 mg) by mouth once daily. omega 9-tjd-ygt-fish oil 1,200 (144-216) mg capsule Take 1 capsule (1,200 mg) by mouth once daily. [employer] Verio test strips strip USE TO CHECK BLOOD SUGAR TWICE A DAY sucralfate (Carafate) 1 gram tablet Take by mouth. Vascepa 1 gram capsule vitamin E acetate (VITAMIN E ORAL) Take 1 tablet by mouth once daily. omeprazole (PriLOSEC) [address] capsule Take 1 capsule (40 mg) by mouth once daily in the morning. Take before meals. Do not crush or chew. (Patient not taking: Reported on 04/27/2025) [DISCONTINUED] fenofibrate (Tricor) 48 mg tablet Take 1 tablet (48 mg) by mouth once daily. No current facility-administered medications on file prior to visit. [3] Allergies Allergen Reactions Chlorthalidone Other Cramps and low magnesium Ciprofloxacin Other Change in urine color Turned urine red Nitrofurantoin Macrocrystal Other Pravastatin Myalgia Semaglutide Unknown Sitagliptin GI Upset Tramadol Other and Swelling Empagliflozin Palpitations Tizanidine Other, Anxiety, Palpitations and Unknown Heart racing Anxiety went thru the roof and had palpitations. [4] Social History Tobacco Use Smoking status: Never Smokeless tobacco: Never Substance Use Topics Alcohol use: Never Drug use: Never documented in this encounter [facility] Work Phone: 04-27-2025 Instructions Genie Godinez MD - 04/27/2025 4:00 PM EDT It was a pleasure to see you today Please call if your symptoms worsen Please review your summary for education and reminders. Follow up at your next appointment. If you had labs/xrays done today, you will be able to view on [employer]. We will contact you when the results are reviewed for further discussion. Please note that you may receive your results before I have had a chance to review. Please know I will be contacting you for discussion Homegoing instructions for all patient A healthy lifestyle helps chronic diseases These are all the goals you should strive to improve your overall health Blood pressure <130/85 BMI of <30 or waist circumference that is 1/2 of your height Fasting blood sugar <107 (if you are diabetic, aim for an A1c <6.4%_ LDL cholesterol <130 Avoid smoking Manage your stress Get your preventive exams Get your immunizations Some guidelines for all patients with lupus Wear sunscreen, even on cloudy days. Sun can worsening rashes and cause fatigue and flares Exercise. Movement is medicine. Even stretches and light yoga count If you smoke, stop. Smoking makes skin manifestations of lupus much harder to treat. Lupus (and the medications you need to be on) increase infection risk. Keep up to date with your vaccinations Lupus increases heart and stroke risk. Make sure you work to get your cholesterol and blood pressure under control. If you have diabetes, it is important to get your A1c below 7% If you are on hydroxychloroquine (plaquenil), make sure you see your eye doctor regularly and get testing to monitor for any potential changes Think about your bone health. Osteoporosis is a risk, especially if you are or have been on steroids. Mental health can be an issue. Not only does having a diagnosis of lupus cause depression but lupus itself can be the cause of mental health issues. If you feel you need help, please call me or your primary care doctor. We are here for you Common Emergency Awareness Tips IS IT A STROKE? Act FAST and Check for these signs: FACE Does the face look uneven? ARM Does one arm drift down? SPEECH Does their speech sound strange? TIME Call at any sign of stroke Heart Attack Signs Chest discomfort: Most heart attacks involve discomfort in the center of the chest and lasts more than a few minutes, or goes away and comes back. It can feel like uncomfortable pressure, squeezing, fullness or pain. Discomfort in upper body: Symptoms can include pain or discomfort in one or both arms, back, neck, jaw or stomach. Shortness of breath: With or without discomfort. Other signs: Breaking out in a cold sweat, nausea, or lightheaded. Remember, MINUTES DO MATTER. If you experience any of these heart attack warning signs, call to get immediate medical attention! You are on an anti-inflammatory medication. Always make sure you take this medication with food. You increase your risk of an ulcer if not taken correctly. Recent studies have shown there is an increased risk of heart attacks and stroke with chronic use. Discontinue and see your doctor if you have any suspicious symptoms. If possible, only take this medication on an as needed basis Current weight: 138 kg (304 lb 4.8 oz) Weight change since last visit (-) denotes wt loss 5.5 lbs Weight loss needed to achieve BMI 25: 154.4 Lbs Weight loss needed to achieve BMI 30: 124.4 Lbs documented in this encounter [facility] Work Phone: 04-27-2025 Miscellaneous Notes Associated Problem(s): Portal hypertension (Multi) No clinical signs of disease progression since last visit. No increase in symptoms Recent labs/imaging/procedures reviewed Medical records reviewed Disease process and pertinent med refills are managed by specialist and PCP. I reviewed that no conflict in medications with the current condition I am treating Associated Problem(s): Systemic lupus erythematosus (Multi) Currently off treatmend. Has more musculoskeletal issues. Labs ordered today to monitor for increased disease activity, end organ manifestations and if ok, restart etodolac Orders: Anti-DNA Antibody, Double-Stranded; Future C3 Complement; Future C4 Complement; Future CBC and Auto Differential; Future Comprehensive Metabolic Panel; Future C-Reactive Protein; Future Sedimentation Rate; Future Follow Up In Rheumatology; Future Associated Problem(s): NSAID long-term use Orders: Follow Up In Rheumatology; Future Associated Problem(s): Class 3 severe obesity due to excess calories with serious comorbidity and body mass index (BMI) of 50.0 to 59.9 in adult Current weight: 138 kg (304 lb 4.8 oz) Weight change since last visit (-) denotes wt loss 5.5 lbs Weight loss needed to achieve BMI 25: 154.4 Lbs Weight loss needed to achieve BMI 30: 124.4 Lbs documented in this encounter [facility] Work Phone: 02-21-2025 Note HNO ID: [id number] Author: DARREL CONTRERAS, ? Service: ? Author Type: Physician Type: Progress Notes Filed: 02/21/2025 13:45 Note Text: Kathia Sanchez is a 69-year-old female with a history of diabetes mellitus and lupus, presenting for a diabetic foot exam and evaluation of bilateral foot pain. Diabetes Mellitus: - Last HbA1c was 7.1% in June, 7 months ago. - Denies burning, tingling, or numbness in feet. Bilateral Foot Pain: - Pain in bilateral hallux, worse on the right side. - Pain localized to the bunion on the right hallux and the second toe. - Describes pain as aching, exacerbated by seasonal changes. - Takes anti-inflammatory medication sparingly due to gastrointestinal concerns. - Reports occasional giving out of the foot when walking. - Has used shoe inserts previously but did not obtain diabetic shoes last year. Lupus: - Diagnosed with lupus, which affects joints and causes flare-ups with seasonal changes. - Manages pain with anti-inflammatory medication, used sparingly. Musculoskeletal: (+) big toe pain, (+) second toe pain, (+) foot instability, (+) arthralgias Neurological: (-) burning, (-) tingling, (-) numbness PAST MEDICAL HISTORY Diagnosis Date Degenerative disc disease, lumbar Diabetes (HCC) Fibromyalgia GERD (gastroesophageal reflux disease) Hypercholesterolemia Insomnia Lupus Osteoarthritis Current Outpatient Medications Medication Sig Dispense Refill baclofen 10 mg tablet Take 1 tablet by mouth two times a day. 60 tablet 11 magnesium oxide (MAG-OX) 400 mg (241.3 mg magnesium) tablet Take 1 tablet by mouth once daily. 90 tablet 3 losartan (COZAAR) 100 mg tablet Take 1 tablet by mouth once daily. 90 tablet 3 nefazodone (SERZONE) 200 mg tablet Take 0.5 tablets by mouth once daily AND 1 tablet daily at bedtime. 135 tablet 3 omeprazole (PRILOSEC) 40 mg capsule Take 1 capsule by mouth every morning. 90 capsule 3 glimepiride (AMARYL) 2 mg tablet Take 2 mg by mouth daily with breakfast. fenofibrate nanocrystallized (TRICOR) 48 mg tablet etodolac (LODINE) 400 mg tablet Take 1 tablet by mouth every 12 hours. PRN vitamin E mixed 400 unit cap Take by mouth. metFORMIN (GLUCOPHAGE) 1,000 mg tablet Take 1,000 mg by mouth twice daily. dapagliflozin (FARXIGA) 10 mg tablet Take 10 mg by mouth once daily. blood sugar diagnostic (BLOOD GLUCOSE TEST) test strip Test blood sugar(s) bid times daily. Dx: Type 2 DM - Controlled E11.9 Insulin: No 150 Strip 3 Cholecalciferol, Vitamin D3, 25 mcg (1,000 unit) cap Take 1,000 Units by mouth once daily. hydrocortisone (ANUSOL-HC) 2.5 % rectal cream by RECTAL route two times a day. PRN Diclofenac Sodium (VOLTAREN) 1 % gel Apply 1 g to affected area twice daily. 30 g 3 OMEGA-3 FATTY ACIDS/FISH OIL (OMEGA 3 FISH OIL ORAL) Take by mouth. MULTIVITAMIN TAB Take by mouth. Centrum Silver 0 No current facility-administered medications for this visit. Family History Problem Relation Age of Onset Heart Mother Diabetes Mother COPD Mother other (lupus) Mother other (rheumatoid) Mother Heart Sister SD at age 41 Diabetes Sister Aneurysm Sister Abdominal other (aortic stenosis) Sister other (spesis) Sister Objective Last menstrual period 11/09/2005. - Cardiovascular: Dorsalis pedis and posterior tibial pulses palpable bilaterally; capillary refill time <5 seconds bilaterally. - Skin: Warm skin temperature; hair growth present; slight callus formation on the medial aspect of bilateral hallux; no open wounds bilaterally; skin well-hydrated; skin tag on the bottom of the left foot. - Musculoskeletal: - Bilateral Feet: - Weight-bearing examination demonstrates collapse of the medial longitudinal arch bilaterally. - Mild to moderate bunion deformity bilaterally, right worse than left. - Decreased ROM of bilateral first metatarsophalangeal joints with pain on dorsiflexion. - Neurological: Protective sensation intact; vibratory sensation slightly decreased bilaterally. Labs: (June) HbA1c: 7.1 Imagin. Diabetic polyneuropathy associated with type 2 diabetes mellitus (HCC) (E11.42) - No current symptoms of burning, tingling, or numbness. - Last hemoglobin A1c was 7.1% in June, 7 months ago. - Educated on the importance of maintaining glycemic control through diet and exercise to reduce the risk of neuropathy. - Discussed the potential for neuropathy to cause loss of sensation, pain, and balance issues. - Ordered diabetic shoes with inserts to provide support and reduce pressure on the feet. diabetic shoes would be of benefit due to neuropathy in presence with foot deformity leading to callus formation - Advised to avoid barefoot walking and to inspect feet regularly. 2. Hallux valgus of right foot (M20.11) - Mild to moderate bunion deformity bilaterally, right worse than left. - Decreased range of motion of bilateral first metatarsophalangeal joints (more content not included)... [facility] 02-21-2025 History of Present illness Narrative Kathia Sanchez is a 69-year-old female with a history of diabetes mellitus and lupus, presenting for a diabetic foot exam and evaluation of bilateral foot pain. Diabetes Mellitus: - Last HbA1c was 7.1% in June, 7 months ago. - Denies burning, tingling, or numbness in feet. Bilateral Foot Pain: - Pain in bilateral hallux, worse on the right side. - Pain localized to the bunion on the right hallux and the second toe. - Describes pain as aching, exacerbated by seasonal changes. - Takes anti-inflammatory medication sparingly due to gastrointestinal concerns. - Reports occasional giving out of the foot when walking. - Has used shoe inserts previously but did not obtain diabetic shoes last year. Lupus: - Diagnosed with lupus, which affects joints and causes flare-ups with seasonal changes. - Manages pain with anti-inflammatory medication, used sparingly. Musculoskeletal: (+) big toe pain, (+) second toe pain, (+) foot instability, (+) arthralgias Neurological: (-) burning, (-) tingling, (-) numbness PAST MEDICAL HISTORY Diagnosis Date Degenerative disc disease, lumbar Diabetes (HCC) Fibromyalgia GERD (gastroesophageal reflux disease) Hypercholesterolemia Insomnia Lupus Osteoarthritis Current Outpatient Medications Medication Sig Dispense Refill baclofen 10 mg tablet Take 1 tablet by mouth two times a day. 60 tablet 11 magnesium oxide (MAG-OX) 400 mg (241.3 mg magnesium) tablet Take 1 tablet by mouth once daily. 90 tablet 3 losartan (COZAAR) 100 mg tablet Take 1 tablet by mouth once daily. 90 tablet 3 nefazodone (SERZONE) 200 mg tablet Take 0.5 tablets by mouth once daily AND 1 tablet daily at bedtime. 135 tablet 3 omeprazole (PRILOSEC) 40 mg capsule Take 1 capsule by mouth every morning. 90 capsule 3 glimepiride (AMARYL) 2 mg tablet Take 2 mg by mouth daily with breakfast. fenofibrate nanocrystallized (TRICOR) 48 mg tablet etodolac (LODINE) 400 mg tablet Take 1 tablet by mouth every 12 hours. PRN vitamin E mixed 400 unit cap Take by mouth. metFORMIN (GLUCOPHAGE) 1,000 mg tablet Take 1,000 mg by mouth twice daily. dapagliflozin (FARXIGA) 10 mg tablet Take 10 mg by mouth once daily. blood sugar diagnostic (BLOOD GLUCOSE TEST) test strip Test blood sugar(s) bid times daily. Dx: Type 2 DM - Controlled E11.9 Insulin: No 150 Strip 3 Cholecalciferol, Vitamin D3, 25 mcg (1,000 unit) cap Take 1,000 Units by mouth once daily. hydrocortisone (ANUSOL-HC) 2.5 % rectal cream by RECTAL route two times a day. PRN Diclofenac Sodium (VOLTAREN) 1 % gel Apply 1 g to affected area twice daily. 30 g 3 OMEGA-3 FATTY ACIDS/FISH OIL (OMEGA 3 FISH OIL ORAL) Take by mouth. MULTIVITAMIN TAB Take by mouth. Centrum Silver 0 No current facility-administered medications for this visit. Family History Problem Relation Age of Onset Heart Mother Diabetes Mother COPD Mother other (lupus) Mother other (rheumatoid) Mother Heart Sister SD at age 41 Diabetes Sister Aneurysm Sister Abdominal other (aortic stenosis) Sister other (spesis) Sister Objective Last menstrual period 11/09/2005. - Cardiovascular: Dorsalis pedis and posterior tibial pulses palpable bilaterally; capillary refill time <5 seconds bilaterally. - Skin: Warm skin temperature; hair growth present; slight callus formation on the medial aspect of bilateral hallux; no open wounds bilaterally; skin well-hydrated; skin tag on the bottom of the left foot. - Musculoskeletal: - Bilateral Feet: - Weight-bearing examination demonstrates collapse of the medial longitudinal arch bilaterally. - Mild to moderate bunion deformity bilaterally, right worse than left. - Decreased ROM of bilateral first metatarsophalangeal joints with pain on dorsiflexion. - Neurological: Protective sensation intact; vibratory sensation slightly decreased bilaterally. Labs: (June) HbA1c: 7.1 Imagin. Diabetic polyneuropathy associated with type 2 diabetes mellitus (HCC) (E11.42) - No current symptoms of burning, tingling, or numbness. - Last hemoglobin A1c was 7.1% in June, 7 months ago. - Educated on the importance of maintaining glycemic control through diet and exercise to reduce the risk of neuropathy. - Discussed the potential for neuropathy to cause loss of sensation, pain, and balance issues. - Ordered diabetic shoes with inserts to provide support and reduce pressure on the feet. diabetic shoes would be of benefit due to neuropathy in presence with foot deformity leading to callus formation - Advised to avoid barefoot walking and to inspect feet regularly. 2. Hallux valgus of right foot (M20.11) - Mild to moderate bunion deformity bilaterally, right worse than left. - Decreased range of motion of bilateral first metatarsophalangeal joints with pain on dorsiflexion. - Discussed the use of wider shoes and shoes with harder soles to accommodate the bunion and limit toe motion, thereby reducing pain. - Considered the use of orthotics or inserts for additional support. - Discussed surgical options for bunion correction if conservative measures fail - Patient prefers to try new shoes and orthotics before considering surgery. 3. Arthritis of both midfeet (M19.071) - Confirmed presence of arthritis in both feet based on previous X-ray from 2019. - Pain in the joints likely due to wear and tear from bunion deformity. - Discussed the potential for custom orthotics to provide support and reduce pain. - Patient prefers to try new shoes and orthotics before considering further imaging or interventions. - offered baseline xray. patient declined. 4. Callus of foot (L84) - Slight callus formation on the medial aspect of bilateral hallux. - No open wounds noted; - Callus formation likely due to pressure from fallen arches and bunion deformities. - Recommended periodic filing of calluses with a pumice stone. - Ordered diabetic shoes with inserts to provide support and reduce pressure on the feet. Attestation Recording using [employer] software for draft documentation of the visit was discussed with the patient/authorized sales representative door to door; all questions welcomed and answered. Patient/authorized sales representative door to door agreed to proceed Darrel Contreras DPM Patient presents with: Left Foot - Established Patient, Follow Up, Diabetic Foot Check Right Foot - Established Patient, Follow Up, Diabetic Foot Check AMB ROOMING INTAKE FLOWSHEET DATA Pain Pain Level: 5 Pain Location: Other: See Comment (Bilateral feet R>L) Description: Aching Frequency: Continuous Intervention/Comfort measure: Relaxation Patient presents for 1 year follow up diabetic foot/nail care and due for diabetic foot check. Patient would like a new order for diabetic shoes placed as well. [facility] 02/22/24 documented in this encounter [facility] 02-21-2025 Instructions Darrel Contreras - 02/21/2025 1:29 PM EDT Begin using your new diabetic shoes with an insert as discussed to help support your feet and reduce pressure on your bunions. Consider using a custom orthotic if the diabetic shoe does not seem to provide enough stability. Wear wider shoes to accommodate your bunion and lessen rubbing on your second toe. File down any calluses periodically with a pumice stone to help reduce pressure on painful areas. Continue to avoid walking barefoot and inspect your feet daily for any new changes or worsening symptoms. Monitor your pain and the feeling of your foot giving out and contact us if these issues increase or new concerns arise. documented in this encounter [facility] 02-21-2025 Note HNO ID: [id number] Author: ISAURA ANTOINE RN Service: ? Author Type: Registered Nurse Type: Progress Notes Filed: 02/21/2025 13:45 Note Text: Patient presents with: Left Foot - Established Patient, Follow Up, Diabetic Foot Check Right Foot - Established Patient, Follow Up, Diabetic Foot Check AMB ROOMING INTAKE FLOWSHEET DATA Pain Pain Level: 5 Pain Location: Other: See Comment (Bilateral feet R>L) Description: Aching Frequency: Continuous Intervention/Comfort measure: Relaxation Patient presents for 1 year follow up diabetic foot/nail care and due for diabetic foot check. Patient would like a new order for diabetic shoes placed as well. [facility] 02/22/24 [facility] 02-16-2025 Evaluation note Diagnosis Onset Date Resolution High triglycerides chronic February 2:15pm IBS (irritable bowel syndrome) chronic February 16, 2025 2: 15pm Metabolic dysfunction-associated steatotic liver disease (MASLD) chronic February 16, 2025 2: 15pm [facility] Work Phone: [phone]) [phone] Instructions* Patient Instructions* Brenda Toth APRN.[employer] - 12/19/2024 1:30 PM EST 1) Try the baclofen at 15 mg at bedtime 2) Consult rheumatology 3) Try baclofen 15 mg at bedtime 4) Follow up in 6 months [facility] NoteHNO ID: [id number] Author: BRENDA TOTH APRN.CNP Service: ? Author Type: Nurse Practitioner Type: Progress Notes Filed: 12/19/2024 13:32 Note Text: This is a 69 year old female who presents today with: Patient presents with: Hypertension: 4 week medication follow up HISTORY OF PRESENT ILLNESS: Vilma Dial is a 69 year old female. Patient presents with: Hypertension: 4 week medication follow up Not taking metoprolol. Worried about BP falling when she is sleeping. States BP always up at the doctor's office. HTN: Patient is compliant with meds No. Did not take metoprolol Monitors bp at home: Yes. SBP 115-145/ DBP 276 Denies side effects: No. Chest pain: No. Dyspnea: No. Edema: Yes. Palpitations: No. Syncope: No. Headache: No. Dizziness: No. PAST MEDICAL HISTORY: PAST MEDICAL HISTORY Diagnosis Date Degenerative disc disease, lumbar Diabetes (HCC) Fibromyalgia GERD (gastroesophageal reflux disease) Hypercholesterolemia Insomnia Lupus Osteoarthritis PAST SURGICAL HISTORY Procedure Laterality Date ADENOIDECTOMY PRIMARY Adenoidectomy APPENDECTOMY CHOLECYSTECTOMY Cholecystectomy COLONOSCOPY 12/24/10 TVA COLONOSCOPY 02/22/13 no polyps COLONOSCOPY FLX DX W/COLLJ SPEC WHEN PFRMD 04/30/2016 Colonoscopy COLONOSCOPY FLX DX W/COLLJ SPEC WHEN PFRMD 07/11/2019 repeat in 5 years ESOPHAGOGASTRODUODENOSCOPY TRANSORAL DIAGNOSTIC 04/30/2016 EGD ESOPHAGOGASTRODUODENOSCOPY TRANSORAL DIAGNOSTIC 07/11/2019 EGD LIG/TRNSXJ FLP TUBE ABDL/VAG APPR UNI/BI Tubal ligation PAST SURGICAL HISTORY OF colon polypectomy PAST SURGICAL HISTORY OF hernia repair TONSILLECTOMY PRIMARY/SECONDARY Tonsillectomy TOTAL ABDOMINAL HYSTERECT W/WO RMVL TUBE OVARY Hysterectomy, JESSICA supracervical ALLERGIES Chlorthalidone, Ciprofloxacin, Januvia [Sitagliptin], Jardiance [Empagliflozin], Macrodantin [Nitrofurantoin], Ozempic [Semaglutide], Pravastatin, Ultram [Tramadol Hcl], and Zanaflex [Tizanidine] MEDICATIONS Current Outpatient Medications Medication Sig magnesium oxide (MAG-OX) 400 mg (241.3 mg magnesium) tablet Take 1 tablet by mouth once daily. losartan (COZAAR) 100 mg tablet Take 1 tablet by mouth once daily. nefazodone (SERZONE) 200 mg tablet Take 0.5 tablets by mouth once daily AND 1 tablet daily at bedtime. omeprazole (PRILOSEC) 40 mg capsule Take 1 capsule by mouth every morning. metoprolol succinate ER (TOPROL XL) 50 mg 24 hr tablet Take 1 tablet by mouth once daily. glimepiride (AMARYL) 2 mg tablet Take 2 mg by mouth daily with breakfast. fenofibrate nanocrystallized (TRICOR) 48 mg tablet etodolac (LODINE) 400 mg tablet Take 1 tablet by mouth every 12 hours. PRN vitamin E mixed 400 unit cap Take by mouth. metFORMIN (GLUCOPHAGE) 1,000 mg tablet Take 1,000 mg by mouth twice daily. dapagliflozin (FARXIGA) 10 mg tablet Take 10 mg by mouth once daily. blood sugar diagnostic (BLOOD GLUCOSE TEST) test strip Test blood sugar(s) bid times daily. Dx: Type 2 DM - Controlled E11.9 Insulin: No Cholecalciferol, Vitamin D3, 25 mcg (1,000 unit) cap Take 1,000 Units by mouth once daily. baclofen (LIORESAL) 10 mg tablet hydrocortisone (ANUSOL-HC) 2.5 % rectal cream by RECTAL route two times a day. PRN Diclofenac Sodium (VOLTAREN) 1 % gel Apply 1 g to affected area twice daily. OMEGA-3 FATTY ACIDS/FISH OIL (OMEGA 3 FISH OIL ORAL) Take by mouth. MULTIVITAMIN TAB Take one(1) tablet daily. No current facility-administered medications for this visit. FAMILY HISTORY Problem Relation Age of Onset Heart Mother Diabetes Mother COPD Mother other (lupus) Mother other (rheumatoid) Mother Heart Sister [place] at age 41 Diabetes Sister Aneurysm Sister Abdominal other (aortic stenosis) Sister other (spesis) Sister Social History Tobacco Use Smoking status: Never Passive exposure: Current Smokeless tobacco: Never Vaping Use Vaping status: Never Used Substance Use Topics Alcohol use: No Drug use: No EXAM: BP 158/70 Pulse 69 Temp 37.3 ?C (99.2 ?F) (Right Tympanic) Wt 133.8 kg (295 lb) LMP 11/09/2005 SpO2 95% BMI 51.37 kg/m? PHYSICAL EXAM: Physical Exam Vitals reviewed. Constitutional: Appearance: Normal appearance. HENT: Head: Normocephalic. Cardiovascular: Rate and Rhythm: Normal rate and regular rhythm. Pulses: Normal pulses. Heart sounds: Normal heart sounds. Pulmonary: Effort: Pulmonary effort is normal. Breath sounds: Normal breath sounds. Abdominal: General: Bowel sounds are normal. Palpations: Abdomen is soft. Tenderness: There is abdominal tenderness. There is guarding. There is no rebound. Musculoskeletal: Right lower leg: Edema present. Left lower leg: Edema present. Comments: L > R- chronic Skin: General: Skin is warm and dry. Neurological: Mental Status: She is alert and oriented to person, place, and time. Psychiatric: Mood and Affect: Mood normal. Behavior: Beh (more content not included)...[facility]03-03-2025 History of Present illness Narrative* Brenda Toth APRN.[facility] - 12/19/2024 1:19 PM EST This is a 69 year old female who presents today with: Patient presents with: Hypertension: 4 week medication follow up HISTORY OF PRESENT ILLNESS: Vilma Dial is a 69 year old female. Patient presents with: Hypertension: 4 week medication follow up Not taking metoprolol. Worried about BP falling when she is sleeping. States BP always up at the doctor's office. HTN: Patient is compliant with meds No. Did not take metoprolol Monitors bp at home: Yes. SBP 115-145/ DBP 276 Denies side effects: No. Chest pain: No. Dyspnea: No. Edema: Yes. Palpitations: No. Syncope: No. Headache: No. Dizziness: No. PAST MEDICAL HISTORY: PAST MEDICAL HISTORY Diagnosis Date Degenerative disc disease, lumbar Diabetes (HCC) Fibromyalgia GERD (gastroesophageal reflux disease) Hypercholesterolemia Insomnia Lupus Osteoarthritis PAST SURGICAL HISTORY Procedure Laterality Date ADENOIDECTOMY PRIMARY <AGE 12 Adenoidectomy APPENDECTOMY CHOLECYSTECTOMY Cholecystectomy COLONOSCOPY 12/24/10 TVA COLONOSCOPY 02/22/13 no polyps COLONOSCOPY FLX DX W/COLLJ SPEC WHEN PFRMD 04/30/2016 Colonoscopy COLONOSCOPY FLX DX W/COLLJ SPEC WHEN PFRMD 07/11/2019 repeat in 5 years ESOPHAGOGASTRODUODENOSCOPY TRANSORAL DIAGNOSTIC 04/30/2016 EGD ESOPHAGOGASTRODUODENOSCOPY TRANSORAL DIAGNOSTIC 07/11/2019 EGD LIG/TRNSXJ FLP TUBE ABDL/VAG APPR UNI/BI Tubal ligation PAST SURGICAL HISTORY OF colon polypectomy PAST SURGICAL HISTORY OF hernia repair TONSILLECTOMY PRIMARY/SECONDARY <AGE 12 Tonsillectomy TOTAL ABDOMINAL HYSTERECT W/WO RMVL TUBE OVARY Hysterectomy, JESSICA supracervical ALLERGIES Chlorthalidone, Ciprofloxacin, Januvia [Sitagliptin], Jardiance [Empagliflozin], Macrodantin [Nitrofurantoin], Ozempic [Semaglutide], Pravastatin, Ultram [Tramadol Hcl], and Zanaflex [Tizanidine] MEDICATIONS Current Outpatient Medications Medication Sig magnesium oxide (MAG-OX) 400 mg (241.3 mg magnesium) tablet Take 1 tablet by mouth once daily. losartan (COZAAR) 100 mg tablet Take 1 tablet by mouth once daily. nefazodone (SERZONE) 200 mg tablet Take 0.5 tablets by mouth once daily AND 1 tablet daily at bedtime. omeprazole (PRILOSEC) 40 mg capsule Take 1 capsule by mouth every morning. metoprolol succinate ER (TOPROL XL) 50 mg 24 hr tablet Take 1 tablet by mouth once daily. glimepiride (AMARYL) 2 mg tablet Take 2 mg by mouth daily with breakfast. fenofibrate nanocrystallized (TRICOR) 48 mg tablet etodolac (LODINE) 400 mg tablet Take 1 tablet by mouth every 12 hours. PRN vitamin E mixed 400 unit cap Take by mouth. metFORMIN (GLUCOPHAGE) 1,000 mg tablet Take 1,000 mg by mouth twice daily. dapagliflozin (FARXIGA) 10 mg tablet Take 10 mg by mouth once daily. blood sugar diagnostic (BLOOD GLUCOSE TEST) test strip Test blood sugar(s) bid times daily. Dx: Type 2 DM - Controlled E11.9 Insulin: No Cholecalciferol, Vitamin D3, 25 mcg (1,000 unit) cap Take 1,000 Units by mouth once daily. baclofen (LIORESAL) 10 mg tablet hydrocortisone (ANUSOL-HC) 2.5 % rectal cream by RECTAL route two times a day. PRN Diclofenac Sodium (VOLTAREN) 1 % gel Apply 1 g to affected area twice daily. OMEGA-3 FATTY ACIDS/FISH OIL (OMEGA 3 FISH OIL ORAL) Take by mouth. MULTIVITAMIN TAB Take one(1) tablet daily. No current facility-administered medications for this visit. FAMILY HISTORY Problem Relation Age of Onset Heart Mother Diabetes Mother COPD Mother other (lupus) Mother other (rheumatoid) Mother Heart Sister [place] at age 41 Diabetes Sister Aneurysm Sister Abdominal other (aortic stenosis) Sister other (spesis) Sister Social History Tobacco Use Smoking status: Never Passive exposure: Current Smokeless tobacco: Never Vaping Use Vaping status: Never Used Substance Use Topics Alcohol use: No Drug use: No EXAM: BP 158/70 Pulse 69 Temp 37.3 C (99.2 F) (Right Tympanic) Wt 133.8 kg (295 lb) LMP 11/09/2005 SpO2 95% BMI 51.37 kg/m PHYSICAL EXAM: Physical Exam Vitals reviewed. Constitutional: Appearance: Normal appearance. HENT: Head: Normocephalic. Cardiovascular: Rate and Rhythm: Normal rate and regular rhythm. Pulses: Normal pulses. Heart sounds: Normal heart sounds. Pulmonary: Effort: Pulmonary effort is normal. Breath sounds: Normal breath sounds. Abdominal: General: Bowel sounds are normal. Palpations: Abdomen is soft. Tenderness: There is abdominal tenderness. There is guarding. There is no rebound. Musculoskeletal: Right lower leg: Edema present. Left lower leg: Edema present. Comments: L > R- chronic Skin: General: Skin is warm and dry. Neurological: Mental Status: She is alert and oriented to person, place, and time. Psychiatric: Mood and Affect: Mood normal. Behavior: Behavior normal. LABS: ASSESSMENT/PLAN: 1. Fibromyalgia - ICD9: 729.1, ICD10: M79.7 (primary diagnosis) Ongoing - BACLOFEN 10 MG TABLET- ordered 2 x day but actually wanting to try just 15 mg at bedtime once a day- too sleepy on 2 x day - CONSULT TO RHEUM/IMMUN DISEASE 2. Primary hypertension - ICD9: 401.9, ICD10: I10 - Home blood pressure readings controlled - Recommend home blood pressure monitoring, to bring results to next visit - Encouraged sodium restriction, DASH or Mediterranean diet - Recommend regular aerobic exercise 3. Type 2 diabetes mellitus with diabetic polyneuropathy, without long-term current use of insulin (HCC) - ICD9: 250.60, 357.2, ICD10: E11.42 - Controlled - Continue current medications 4. 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 Patient's questions answered appropriately. Medications and potential side effects were discussed and patient voices understanding. Return to the office as scheduled or as needed for worsening/no improvement. Brenda Toth APRN.CNP [facility] Telephone encounter Note * Telephone Encounter - Sara Cardoza OCCA - 11/23/2024 9:50 AM EST TC to patient who verbalized understanding of providers message below and is agreeable to providersplan/instructions. WENDY Aceves [facility]02-05-2025 Miscellaneous Notes* Telephone Encounter - Sara Cardoza OCCA - 11/23/2024 9:50 AM EST TC to patient who verbalized understanding of providers message below and is agreeable to providersplan/instructions. WENDY Aceves * Telephone Encounter - Brenda Toth APRN.CNP - 11/22/2024 4:58 PM EST Please let patient know that her labs showed her triglycerides are very high at 410. Please follow diet low in saturated fat by eliminating fried foods and choosing only lean meat/skim dairy products. Her magnesium level is low at 1.6. I am ordering magnesium oxide 400 mg to take daily. We should recheck her magnesium level in a month. Urine for microalbumin creatinine ratio is elevated. This indicates some damage to your kidneys from diabetes. Please continue losartan as it will protect your kidneys.. Farxiga does also protect your kidneys. All other labs are normal. documented [facility] Telephone encounter Note * Telephone Encounter - Brenda Toth APRN.CNP - 11/22/2024 4:58 PM EST Please let patient know that her labs showed her triglycerides are very high at 410. Please follow diet low in saturated fat by eliminating fried foods and choosing only lean meat/skim dairy products. Her magnesium level is low at 1.6. I am ordering magnesium oxide 400 mg to take daily. We should recheck her magnesium level in a month. Urine for microalbumin creatinine ratio is elevated. This indicates some damage to your kidneys from diabetes. Please continue losartan as it will protect your kidneys.. Farxiga does also protect your kidneys. All other labs are normal. [facility]02-03-2025 Instructions* Patient Instructions* Brenda Toth APRN.CNP - 11/21/2024 11:17 AM EST 1) Add Metoprolol XL 50 mg at bedtime 2) Take losartan in the morning 3) Increase the baclofen to 20 mg at bedtime 4) Serzone 100 mg in the morning (1/2 tab) and 200 mg at bedtime 5) Follow up in 1 month documented in [facility] encounterC[facility]25 NoteHNO ID: [id number] Author: BRENDA TTOH APRN.CNP Service: ? Author Type: Nurse Practitioner Type: Progress Notes Filed: 11/21/2024 11:19 Note Text: This is a 69 year old female who presents today with: Patient presents with: 6 Month Exam ER F/U: HTN had pain in jaw and left arm. Brings readings from home today. HISTORY OF PRESENT ILLNESS: Vilma Dial is a 69 year old female. Patient presents with: 6 Month Exam ER F/U: HTN had pain in jaw and left arm. Brings readings from home today. Went to see endocrinology and blood pressure was high. She attributed to white coat syndrome. The following day, blood pressure jumped up again. Back was hurting. Left arm and jaw was hurting. So she went to ER. Described as an ache. Not related to activity. Pain comes and goes but not related to activity. Can't get comfortable at night. ER did ECG, chest Xray, gave her 1 dose of IV lopresor. Since then, 175/79 to 121/65 DM: Reports overall feeling well. Medication side effects: No. Home sugar checks: Yes. 135 last night, 165 in the morning Hypoglycemic spells: No. Watching diet: Yes. Unexpected weight loss: No. Polyuria, polydipsia: No. Vision Changes: No. Foot lesions or numbness or pain: No. PAST MEDICAL HISTORY: PAST MEDICAL HISTORY Diagnosis Date Degenerative disc disease, lumbar Diabetes (HCC) Fibromyalgia GERD (gastroesophageal reflux disease) Hypercholesterolemia Insomnia Lupus Osteoarthritis PAST SURGICAL HISTORY Procedure Laterality Date ADENOIDECTOMY PRIMARY Adenoidectomy APPENDECTOMY CHOLECYSTECTOMY Cholecystectomy COLONOSCOPY 12/24/10 TVA COLONOSCOPY 02/22/13 no polyps COLONOSCOPY FLX DX W/COLLJ SPEC WHEN PFRMD 04/30/2016 Colonoscopy COLONOSCOPY FLX DX W/COLLJ SPEC WHEN PFRMD 07/11/2019 repeat in 5 years ESOPHAGOGASTRODUODENOSCOPY TRANSORAL DIAGNOSTIC 04/30/2016 EGD ESOPHAGOGASTRODUODENOSCOPY TRANSORAL DIAGNOSTIC 07/11/2019 EGD LIG/TRNSXJ FLP TUBE ABDL/VAG APPR UNI/BI Tubal ligation PAST SURGICAL HISTORY OF colon polypectomy PAST SURGICAL HISTORY OF hernia repair TONSILLECTOMY PRIMARY/SECONDARY Tonsillectomy TOTAL ABDOMINAL HYSTERECT W/WO RMVL TUBE OVARY Hysterectomy, JESSICA supracervical ALLERGIES Chlorthalidone, Ciprofloxacin, Januvia [Sitagliptin], Jardiance [Empagliflozin], Macrodantin [Nitrofurantoin], Ozempic [Semaglutide], Pravastatin, Ultram [Tramadol Hcl], and Zanaflex [Tizanidine] MEDICATIONS Current Outpatient Medications Medication Sig glimepiride (AMARYL) 2 mg tablet Take 2 mg by mouth daily with breakfast. losartan (COZAAR) 100 mg tablet Take 1 tablet by mouth once daily. nefazodone (SERZONE) 200 mg tablet Take 1 tablet by mouth once daily. omeprazole (PRILOSEC) 40 mg capsule Take 1 capsule by mouth every morning. fenofibrate nanocrystallized (TRICOR) 48 mg tablet etodolac (LODINE) 400 mg tablet Take 1 tablet by mouth every 12 hours. PRN vitamin E mixed 400 unit cap Take by mouth. metFORMIN (GLUCOPHAGE) 1,000 mg tablet Take 1,000 mg by mouth twice daily. sucralfate (CARAFATE) 1 gram tablet Take 1 tablet by mouth before meals and at bedtime. prn (Patient taking differently: Take 1 g by mouth three times a day. prn) dapagliflozin (FARXIGA) 10 mg tablet Take 10 mg by mouth once daily. blood sugar diagnostic (BLOOD GLUCOSE TEST) test strip Test blood sugar(s) bid times daily. Dx: Type 2 DM - Controlled E11.9 Insulin: No Cholecalciferol, Vitamin D3, 25 mcg (1,000 unit) cap Take 1,000 Units by mouth once daily. baclofen (LIORESAL) 10 mg tablet hydrocortisone (ANUSOL-HC) 2.5 % rectal cream by RECTAL route two times a day. PRN Diclofenac Sodium (VOLTAREN) 1 % gel Apply 1 g to affected area twice daily. OMEGA-3 FATTY ACIDS/FISH OIL (OMEGA 3 FISH OIL ORAL) Take by mouth. MULTIVITAMIN TAB Take one(1) tablet daily. No current facility-administered medications for this visit. FAMILY HISTORY Problem Relation Age of Onset Heart Mother Diabetes Mother COPD Mother other (lupus) Mother other (rheumatoid) Mother Heart Sister [place] at age 41 Diabetes Sister Aneurysm Sister Abdominal other (aortic stenosis) Sister other (spesis) Sister Social History Tobacco Use Smoking status: Never Passive exposure: Current Smokeless tobacco: Never Vaping Use Vaping status: Never Used Substance Use Topics Alcohol use: No Drug use: No REVIEW OF SYSTEMS GENERAL: Trying to lose weight loss, + malaise, no fevers/chills HEENT: Negative for frequent or significant headaches, Poor hearing, no change in vision. NECK: Negative for lumps, goiter, pain and significant neck swelling RESPIRATORY: Negative for cough, hemoptysis, wheezing, dyspnea or shortness of breath CARDIOVASCULAR: Negative for chest pain, + leg swelling, no orthopnea, no palpitations GI: No nausea, vomiting, or diarrhea/constipation. No hematochezia/melena. Occ heartburn or reflux symptoms. : No history of d (more content not included)...[facility] 11-21-2024 History of Present illness Narrative* Brenda Toth APRN.[facility] - 11/21/2024 10:49 AM EST This is a 69 year old female who presents today with: Patient presents with: 6 Month Exam ER F/U: HTN had pain in jaw and left arm. Brings readings from home today. HISTORY OF PRESENT ILLNESS: Vilma Dial is a 69 year old female. Patient presents with: 6 Month Exam ER F/U: HTN had pain in jaw and left arm. Brings readings from home today. Went to see endocrinology and blood pressure was high. She attributed to white coat syndrome. The following day, blood pressure jumped up again. Back was hurting. Left arm and jaw was hurting. So she went to ER. Described as an ache. Not related to activity. Pain comes and goes but not related to activity. Can't get comfortable at night. ER did ECG, chest Xray, gave her 1 dose of IV lopresor. Since then, 175/79 to 121/65 DM: Reports overall feeling well. Medication side effects: No. Home sugar checks: Yes. 135 last night, 165 in the morning Hypoglycemic spells: No. Watching diet: Yes. Unexpected weight loss: No. Polyuria, polydipsia: No. Vision Changes: No. Foot lesions or numbness or pain: No. PAST MEDICAL HISTORY: PAST MEDICAL HISTORY Diagnosis Date Degenerative disc disease, lumbar Diabetes (HCC) Fibromyalgia GERD (gastroesophageal reflux disease) Hypercholesterolemia Insomnia Lupus Osteoarthritis PAST SURGICAL HISTORY Procedure Laterality Date ADENOIDECTOMY PRIMARY <AGE 12 Adenoidectomy APPENDECTOMY CHOLECYSTECTOMY Cholecystectomy COLONOSCOPY 12/24/10 TVA COLONOSCOPY 02/22/13 no polyps COLONOSCOPY FLX DX W/COLLJ SPEC WHEN PFRMD 04/30/2016 Colonoscopy COLONOSCOPY FLX DX W/COLLJ SPEC WHEN PFRMD 07/11/2019 repeat in 5 years ESOPHAGOGASTRODUODENOSCOPY TRANSORAL DIAGNOSTIC 04/30/2016 EGD ESOPHAGOGASTRODUODENOSCOPY TRANSORAL DIAGNOSTIC 07/11/2019 EGD LIG/TRNSXJ FLP TUBE ABDL/VAG APPR UNI/BI Tubal ligation PAST SURGICAL HISTORY OF colon polypectomy PAST SURGICAL HISTORY OF hernia repair TONSILLECTOMY PRIMARY/SECONDARY <AGE 12 Tonsillectomy TOTAL ABDOMINAL HYSTERECT W/WO RMVL TUBE OVARY Hysterectomy, JESSICA supracervical ALLERGIES Chlorthalidone, Ciprofloxacin, Januvia [Sitagliptin], Jardiance [Empagliflozin], Macrodantin [Nitrofurantoin], Ozempic [Semaglutide], Pravastatin, Ultram [Tramadol Hcl], and Zanaflex [Tizanidine] MEDICATIONS Current Outpatient Medications Medication Sig glimepiride (AMARYL) 2 mg tablet Take 2 mg by mouth daily with breakfast. losartan (COZAAR) 100 mg tablet Take 1 tablet by mouth once daily. nefazodone (SERZONE) 200 mg tablet Take 1 tablet by mouth once daily. omeprazole (PRILOSEC) 40 mg capsule Take 1 capsule by mouth every morning. fenofibrate nanocrystallized (TRICOR) 48 mg tablet etodolac (LODINE) 400 mg tablet Take 1 tablet by mouth every 12 hours. PRN vitamin E mixed 400 unit cap Take by mouth. metFORMIN (GLUCOPHAGE) 1,000 mg tablet Take 1,000 mg by mouth twice daily. sucralfate (CARAFATE) 1 gram tablet Take 1 tablet by mouth before meals and at bedtime. prn (Patient taking differently: Take 1 g by mouth three times a day. prn) dapagliflozin (FARXIGA) 10 mg tablet Take 10 mg by mouth once daily. blood sugar diagnostic (BLOOD GLUCOSE TEST) test strip Test blood sugar(s) bid times daily. Dx: Type 2 DM - Controlled E11.9 Insulin: No Cholecalciferol, Vitamin D3, 25 mcg (1,000 unit) cap Take 1,000 Units by mouth once daily. baclofen (LIORESAL) 10 mg tablet hydrocortisone (ANUSOL-HC) 2.5 % rectal cream by RECTAL route two times a day. PRN Diclofenac Sodium (VOLTAREN) 1 % gel Apply 1 g to affected area twice daily. OMEGA-3 FATTY ACIDS/FISH OIL (OMEGA 3 FISH OIL ORAL) Take by mouth. MULTIVITAMIN TAB Take one(1) tablet daily. No current facility-administered medications for this visit. FAMILY HISTORY Problem Relation Age of Onset Heart Mother Diabetes Mother COPD Mother other (lupus) Mother other (rheumatoid) Mother Heart Sister [place] at age 41 Diabetes Sister Aneurysm Sister Abdominal other (aortic stenosis) Sister other (spesis) Sister Social History Tobacco Use Smoking status: Never Passive exposure: Current Smokeless tobacco: Never Vaping Use Vaping status: Never Used Substance Use Topics Alcohol use: No Drug use: No REVIEW OF SYSTEMS GENERAL: Trying to lose weight loss, + malaise, no fevers/chills HEENT: Negative for frequent or significant headaches, Poor hearing, no change in vision. NECK: Negative for lumps, goiter, pain and significant neck swelling RESPIRATORY: Negative for cough, hemoptysis, wheezing, dyspnea or shortness of breath CARDIOVASCULAR: Negative for chest pain, + leg swelling, no orthopnea, no palpitations GI: No nausea, vomiting, or diarrhea/constipation. No hematochezia/melena. Occ heartburn or reflux symptoms. : No history of dysuria, frequency or incontinence MUSCULOSKELETAL: Wide spread joint pain and swelling. Lupus and fibromyalgia SKIN: Negative for lesions, rash, and itching ENDOCRINE: Negative for cold or heat intolerance, polyuria, polydipsia and goiter NEURO: No history of headaches, syncope, paralysis, seizures or tremors MOOD: Negative for depression, + anxiety, no suicidal ideation. EXAM: BP 152/82 Pulse 73 Wt (!) 136.5 kg (301 lb) LMP 11/09/2005 SpO2 95% BMI 52.41 kg/m PHYSICAL EXAM: Physical Exam Vitals reviewed. Constitutional: Appearance: Normal appearance. HENT: Head: Normocephalic. Cardiovascular: Rate and Rhythm: Normal rate and regular rhythm. Pulses: Normal pulses. Heart sounds: Normal heart sounds. Pulmonary: Effort: Pulmonary effort is normal. Breath sounds: Normal breath sounds. Comments: Distant lung sounds Abdominal: Palpations: Abdomen is soft. Comments: Hypoactive STEPHAN Musculoskeletal: Right lower leg: No edema. Left lower leg: No edema. Comments: Noticeable grit along back muscles Tiny lumps under skin- adipose Skin: General: Skin is warm and dry. Neurological: Mental Status: She is alert and oriented to person, place, and time. Psychiatric: Mood and Affect: Mood normal. Behavior: Behavior normal. LABS: HgA1c 7.6 % done 11/16/24 ASSESSMENT/PLAN: 1. Primary hypertension - ICD9: 401.9, ICD10: I10 (primary diagnosis) - Uncontrolled - Recommend home blood pressure monitoring, to bring results to next visit - Encouraged sodium restriction, DASH or Mediterranean diet - Recommend regular aerobic exercise - Add Toprol Xl in thhe evening 2. Uncontrolled type 2 diabetes mellitus with hyperglycemia (HCC) - ICD9: 250.02, ICD10: E11.65 - Worsening control - Continue current medications - Back on diet 3. Mixed hyperlipidemia - ICD9: 272.2, ICD10: E78.2 - Control undetermined, due for labs - Counseled on healthy diet and regular exercise 4. Fibromyalgia - ICD9: 729.1, ICD10: M79.7 Ongoing 5. TERI (obstructive sleep apnea) - ICD9: 327.23, ICD10: G47.33 Wears CPAP Discussed treatment plan and patient voices understanding. Patient's questions answered appropriately. Medications and potential side effects were discussed and patient voices understanding. Return to the office as scheduled or as needed for worsening/no improvement. Brenda Toth APRN.EBONI documented in this encounterC[facility] Evaluation note* Diagnosis Onset Date Resolution Status Admit Date Diabetes chronic November 16, 2024 8:37am Dyslipidemia chronic October 8:37am Essential hypertension chronic Ja nuary 2024 8:37am Fatty liver chronic November 16, 2024 8:37am High triglycerides chronic Januar y 2024 8:37am Obesity chronic November 16, 2024 8:37am [facility] Work Phone: 1(494) 983-920812-13-2024 Telephone encounter Note* Telephone Encounter - Kelly Spear LPN - 09/30/2024 9:08 AM EST Patient is scheduled on 10/28/2024 at 340. Kelly Spear LPN [facility] Work Phone: 1(755) 117-593212-13-2024 Miscellaneous Notes* Telephone Encounter - Kelly Spear LPN - 09/30/2024 9:08 AM EST Patient is scheduled on 10/28/2024 at 340. Kelly Spear LPN * Telephone Encounter - Isaura Antoine RN - 09/29/2024 4:57 PM EST Patient will need new appointment as they require order and office visit within 6 months. * Telephone Encounter - Lissett Ruvalcaba MA - 09/29/2024 3:20 PM EST Pt calling to get new order for diabetic shoes. The order from February is no longer valid. She had taken the order to [facility] and after several months wait, she was told that they could not provide thetype of shoes she needed and that she would need to go to [facility]. Please fax new updated order to [facility]. No need to call pt unless there is a problem with the request. Lissett Ruvalcaba MA documented in this encounterC[facility]12-12-2024 Telephone encounter Note * Telephone Encounter - Isaura Antoine RN - 09/29/2024 4:57 PM EST Patient will need new appointment as they require order and office visit within 6 months. [facility]12-12-[facility] Telephone encounter Note* Telephone Encounter - Lissett Ruvalcaba MA - 09/29/2024 3:20 PM EST Pt calling to get new order for diabetic shoes. The order from February is no longer valid. She had taken the order to [facility] and after several months wait, she was told that they could not provide thetype of shoes she needed and that she would need to go to [facility]. Please fax new updated order to [facility]. No need to call pt unless there is a problem with the request. Lissett Ruvalcaba MA [facility]12-05-[facility]24 History of Present illness Narrative* Lacho Betancourt Mammo Tech - 09/22/2024 10:50 AM EST Radiology Service Progress Note PATIENT NAME: Vilma Dial DATE OF SERVICE: September 22, 2024 TIME: 11:13 AM PATIENT IDENTITY VERIFICATION COMPLETED USING TWO (2) IDENTIFIERS: Name and Date of confirmedby patient verbally. FALL SCREENING: Has the patient had 2 falls in the last year or 1 fall with injury or currently using an Ambulatory Assistive Device (Walker, Cane, Wheelchair, Crutches, etc.)? No PATIENT GENDER DATA: Female. status: : No status: NO. PATIENT RELEVANT IMPLANT DATA REVIEWED: Not Applicable PATIENT PRESENTS WITH AN IMPLANTABLE OR ATTACHED MATERIAL ASSEMBLER: No RADIOLOGY DEPARTMENT: Mammography PERIPHERAL IV DATA: Not applicable SIGNED BY: Veronica Salas September 22, 2024 11:13 AM documented in this encounterCleveland Clinic [facility]12-05-2024 NoteHNO ID: [id number] Author: LACHO BETANCOURT Mammo Tech Service: ? Author Type: Thermodynamicist Type: Progress Notes Filed: 09/22/2024 11:14 Note Text: Radiology Service Progress Note PATIENT NAME: Vilma Dial DATE OF SERVICE: September 22, 2024 TIME: 11:13 AM PATIENT IDENTITY VERIFICATION COMPLETED USING TWO (2) IDENTIFIERS: Name and Date of confirmed by patient verbally. FALL SCREENING: Has the patient had 2 falls in the last year or 1 fall with injury or currently using an Ambulatory Assistive Device (Walker, Cane, Wheelchair, Crutches, etc.)? No PATIENT GENDER DATA: Female. status: : No status: NO. PATIENT RELEVANT IMPLANT DATA REVIEWED: Not Applicable PATIENT PRESENTS WITH AN IMPLANTABLE OR ATTACHED MATERIAL ASSEMBLER: No RADIOLOGY DEPARTMENT: Mammography PERIPHERAL IV DATA: Not applicable SIGNED BY: Lacho Betancourt [employer] September 22, 2024 11:13 [facility]12-05-2024 NoteHNO ID: [id number] Author: AGNIESZKA MELCHOR APRN.APPEALS BOARD REFEREE Service: ? 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 Vilma is a 68 year old who presents for an annual gynecologic exam without complaints. Postmenopausal: Yes, no PMB since Supracervical hysterectomy BSO. HRT use: No. 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 LMP: 11/09/2005, Hysterectomy Age at Menarche: Age at First : Age at Menopause: [employer] History Comments: Sexual Activity: Yes; Male; pt has had JESSICA Contraception: Surgical PAST MEDICAL HISTORY Diagnosis Date Degenerative disc disease, lumbar Diabetes (HCC) Fibromyalgia GERD (gastroesophageal reflux disease) Hypercholesterolemia Insomnia Lupus Osteoarthritis PAST SURGICAL HISTORY Procedure Laterality Date ADENOIDECTOMY PRIMARY Adenoidectomy APPENDECTOMY CHOLECYSTECTOMY Cholecystectomy COLONOSCOPY 12/24/10 TVA COLONOSCOPY 02/22/13 no polyps COLONOSCOPY FLX DX W/COLLJ SPEC WHEN PFRMD 04/30/2016 Colonoscopy COLONOSCOPY FLX DX W/COLLJ SPEC WHEN PFRMD 07/11/2019 repeat in 5 years ESOPHAGOGASTRODUODENOSCOPY TRANSORAL DIAGNOSTIC 04/30/2016 EGD ESOPHAGOGASTRODUODENOSCOPY TRANSORAL DIAGNOSTIC 07/11/2019 EGD LIG/TRNSXJ FLP TUBE ABDL/VAG APPR UNI/BI Tubal ligation PAST SURGICAL HISTORY OF colon polypectomy PAST SURGICAL HISTORY OF hernia repair TONSILLECTOMY PRIMARY/SECONDARY Tonsillectomy TOTAL ABDOMINAL HYSTERECT W/WO RMVL TUBE OVARY Hysterectomy, JESSICA supracervical FAMILY HISTORY Problem Relation Age of Onset Heart Mother Diabetes Mother COPD Mother other (lupus) Mother other (rheumatoid) Mother Heart Sister SD at age 41 Diabetes Sister Aneurysm Sister Abdominal other (aortic stenosis) Sister other (spesis) Sister SOCIAL HISTORY Social History Tobacco Use Smoking status: Never Passive exposure: Current Smokeless tobacco: Never Vaping Use Vaping status: Never Used Substance Use Topics Alcohol use: No Drug use: No REVIEW OF SYSTEMS Abdomen: No abdominal pain, nausea, vomiting, diarrhea, or constipation. No bloating, early satiety, indigestion, or increased flatulence. Bladder: No dysuria, gross hematuria, urinary frequency, urinary urgency, or incontinence Breast: No breast lumps, nipple d/c, overlying skin changes, redness or skin retraction Allergies and current medication updated:Yes SENSITIVE EXAM: The sensitive examination was discussed with the Patient or Patient's Authorized [employer] Unified Communications Engineer. As applicable, any other physician, advance practice provider, medical student, or other health professional student that will be observing or involved in the sensitive examination for educational or training purposes was discussed with the Patient or Authorized [employer] Unified Communications Engineer. The Patient or Authorized [employer] Unified Communications Engineer has agreed to proceed with the sensitive examination. (Sensitive examination includes inspection and/or palpation of the breasts, pelvis, prostate and anorectal regions). EXAM: BP 128/76 Ht 5' 3.543 (1.61m) Wt 309 lb (140.2kg) LMP 11/09/2005 BMI 53.80 kg/(m2). GENERAL: pleasant, female in no apparent distress HEENT: Normocephalic, atraumatic, mucus membranes moist, and no lesions DERMATOLOGY: Normal, without lesions, non-icteric, and non-hirsute BREAST: soft, non-tender, symmetric, no dominant mass, normal nipple-areolar complex, no lymphadenopathy, and no nipple discharge CHEST: Normal inspiratory effort ABDOMEN: soft, non-tender, and no masses PELVIC: external genitalia normal, normal Bartholin's glands, urethra, Mcgaffey's glands, no vulvar lesions, no cervical lesions, physiologic discharge present, normal appearing perineal body and perianal region---supracervical BIMANUAL: no adnexal masses, non-tender, and uterus surgically absent RECTOVAGINAL: deferred. NEURO: alert and oriented x3,exam grossly non-focal EXTREMITIES: normal ASSESSMENT/PLAN: 1) Health maintenance: Pap done with HPV. Mammogram ordered Mammogram up to date Nutrition, exercise and routine health maintenance exams reviewed. Calcium/Vitamin D supplementation information provided. 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 Vilma is a 68 year old who presents for an annual gynecologic exam without complaints. Postmenopausal: Yes, no PMB since Supracervical hysterectomy BSO. HRT use: No. 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 LMP: 11/09/2005, Hysterectomy Age at Menarche: Age at First : Age at Menopause: [employer] History Comments: Sexual Activity: Yes; Male; pt has had JESSICA Contraception: Surgical PAST MEDICAL HISTORY Diagnosis Date Degenerative disc disease, lumbar Diabetes (HCC) Fibromyalgia GERD (gastroesophageal reflux disease) Hypercholesterolemia Insomnia Lupus Osteoarthritis PAST SURGICAL HISTORY Procedure Laterality Date ADENOIDECTOMY PRIMARY <AGE 12 Adenoidectomy APPENDECTOMY CHOLECYSTECTOMY Cholecystectomy COLONOSCOPY 12/24/10 TVA COLONOSCOPY 02/22/13 no polyps COLONOSCOPY FLX DX W/COLLJ SPEC WHEN PFRMD 04/30/2016 Colonoscopy COLONOSCOPY FLX DX W/COLLJ SPEC WHEN PFRMD 07/11/2019 repeat in 5 years ESOPHAGOGASTRODUODENOSCOPY TRANSORAL DIAGNOSTIC 04/30/2016 EGD ESOPHAGOGASTRODUODENOSCOPY TRANSORAL DIAGNOSTIC 07/11/2019 EGD LIG/TRNSXJ FLP TUBE ABDL/VAG APPR UNI/BI Tubal ligation PAST SURGICAL HISTORY OF colon polypectomy PAST SURGICAL HISTORY OF hernia repair TONSILLECTOMY PRIMARY/SECONDARY <AGE 12 Tonsillectomy TOTAL ABDOMINAL HYSTERECT W/WO RMVL TUBE OVARY Hysterectomy, JESSICA supracervical FAMILY HISTORY Problem Relation Age of Onset Heart Mother Diabetes Mother COPD Mother other (lupus) Mother other (rheumatoid) Mother Heart Sister SD at age 41 Diabetes Sister Aneurysm Sister Abdominal other (aortic stenosis) Sister other (spesis) Sister SOCIAL HISTORY Social History Tobacco Use Smoking status: Never Passive exposure: Current Smokeless tobacco: Never Vaping Use Vaping status: Never Used Substance Use Topics Alcohol use: No Drug use: No REVIEW OF SYSTEMS Abdomen: No abdominal pain, nausea, vomiting, diarrhea, or constipation. No bloating, early satiety, indigestion, or increased flatulence. Bladder: No dysuria, gross hematuria, urinary frequency, urinary urgency, or incontinence Breast: No breast lumps, nipple d/c, overlying skin changes, redness or skin retraction Allergies and current medication updated:Yes SENSITIVE EXAM: The sensitive examination was discussed with the Patient or Patient's Authorized [employer] Unified Communications Engineer. As applicable, any other physician, advance practice provider, medical student, or other health professional student that will be observing or involved in the sensitive examination for educational or training purposes was discussed with the Patient or Authorized [employer] Unified Communications Engineer. The Patient or Authorized [employer] Unified Communications Engineer has agreed to proceed with the sensitive examination. (Sensitive examination includes inspection and/or palpation of the breasts, pelvis, prostate and anorectal regions). EXAM: BP 128/76 Ht 5' 3.543 (1.61m) Wt 309 lb (140.2kg) LMP 11/09/2005 BMI 53.80 kg/(m^2). GENERAL: pleasant, female in no apparent distress HEENT: Normocephalic, atraumatic, mucus membranes moist, and no lesions DERMATOLOGY: Normal, without lesions, non-icteric, and non-hirsute BREAST: soft, non-tender, symmetric, no dominant mass, normal nipple-areolar complex, no lymphadenopathy, and no nipple discharge CHEST: Normal inspiratory effort ABDOMEN: soft, non-tender, and no masses PELVIC: external genitalia normal, normal Bartholin's glands, urethra, Mcgaffey's glands, no vulvar lesions, no cervical lesions, physiologic discharge present, normal appearing perineal body and perianal region---supracervical BIMANUAL: no adnexal masses, non-tender, and uterus surgically absent RECTOVAGINAL: deferred. NEURO: alert and oriented x3,exam grossly non-focal EXTREMITIES: normal ASSESSMENT/PLAN: 1) Health maintenance: Pap done with HPV. Mammogram ordered Mammogram up to date Nutrition, exercise and routine health maintenance exams reviewed. Calcium/Vitamin D supplementation information provided. Colon cancer screening: up to date with screening due 2024 BMD: up to date 2) Follow up one year or sooner as needed Agnieszka Melchor APRN.APPEALS BOARD REFEREE documented in this encounterC[facility]11-21-2024 NoteHNO ID: [id number] Author: ?, ?, ? Service: ? Author Type: ? Type: Progress Notes Filed: 09/08/2024 09:33 Note Text: POPULATION HEALTH NAVIGATION OUTREACH Action/FYI Per chart review patient took home BP on 08/15 and was compliant at 119/60. Reason for Outreach Care Gap/HCC or Scheduling Wellness Visits Care Gaps due: Controlling Blood Pressure Navigation Signature: Margie Pagan Population Health Navigmode September 08, 2024 9:31 [facility]11-21-2024 History of Present illness Narrative* [facility] Population Health Margie Lerner - 09/08/2024 9:31 AM EST POPULATION HEALTH NAVIGATION OUTREACH Action/FYI Per chart review patient took home BP on 08/15 and was compliant at 119/60. Reason for Outreach Care Gap/HCC or Scheduling Wellness Visits Care Gaps due: Controlling Blood Pressure Navigation Signature: Margie Pagan Population Health Navigmode September 08, 2024 9:31 AM documented in this encounterCleveland Clinic [facility]11-21-2024 NotePatient Outreach (NETNAV) VILMA DIAL I ([id number]) 1955 F Date Time Provider Department 09/08/24 TAYLORMARGIE Mirta MILLSV During your visit today, we recorded the following information about you: Cristianlayla Population Health NavigatorMargie 09/08/2024 9:33 AM Signed POPULATION HEALTH NAVIGATION OUTREACH Action/FYI Per chart review patient took home BP on 08/15 and was compliant at 119/60. Reason for Outreach Care Gap/HCC or Scheduling Wellness Visits Care Gaps due: Controlling Blood Pressure Navigation Signature: Margie Kirby Taylor Population Health Navigator September 08, 2024 9:31 AM Allergies As of Date: 09/08/2024 Noted Allergy Reaction CHLORTHALIDONE 08/15/2024 16 - Unknown Comments: Cramps and low magnesium CIPROFLOXACIN 10/26/2014 14 - Other: See Comments Comments: Change in urine color JANUVIA (SITAGLIPTIN) 02/22/2018 8 - GI Upset JARDIANCE (EMPAGLIFLOZIN) 05/04/2019 5 - Intolerance MACRODANTIN (NITROFURANTOIN) 11/20/2005 OZEMPIC (SEMAGLUTIDE) 09/17/2021 16 - Unknown PRAVASTATIN 08/25/2022 17 - Myalgia ULTRAM (TRAMADOL HCL) 01/07/2013 7 - Swelling ZANAFLEX (TIZANIDINE) 09/17/2021 16 - Unknown Comments: Heart racing Date Reviewed: 07/29/2024 Reviewed by: Shelia Parrish MA - Fully Assessed Reason for Visit: Population Health Navigation Outreach [3910] Cmt: BP Prescriptions as of 09/08/2024 - glimepiride (AMARYL) 2 mg tablet Take 2 mg by mouth daily with breakfast. - losartan (COZAAR) 100 mg tablet Take 1 tablet by mouth once daily. - nefazodone (SERZONE) 200 mg tablet Take 1 tablet by mouth once daily. - omeprazole (PRILOSEC) 40 mg capsule Take 1 capsule by mouth every morning. - fenofibrate nanocrystallized (TRICOR) 48 mg tablet - etodolac (LODINE) 400 mg tablet Take 1 tablet by mouth every 12 hours. PRN - vitamin E mixed 400 unit cap Take by mouth. - metFORMIN (GLUCOPHAGE) 1,000 mg tablet Take 1,000 mg by mouth twice daily. - sucralfate (CARAFATE) 1 gram tablet Take 1 tablet by mouth before meals and at bedtime. prn - dapagliflozin (FARXIGA) 10 mg tablet Take 10 mg by mouth once daily. - blood sugar diagnostic (BLOOD GLUCOSE TEST) test strip Test blood sugar(s) bid times daily. Dx: Type 2 DM - Controlled E11.9 Insulin: No - Cholecalciferol, Vitamin D3, 25 mcg (1,000 unit) cap Take 1,000 Units by mouth once daily. - baclofen (LIORESAL) 10 mg tablet - hydrocortisone (ANUSOL-HC) 2.5 % rectal cream by RECTAL route two times a day. PRN - Diclofenac Sodium (VOLTAREN) 1 % gel Apply 1 g to affected area twice daily. - OMEGA-3 FATTY ACIDS/FISH OIL (OMEGA 3 FISH OIL ORAL) Take by mouth. - MULTIVITAMIN TAB Take one(1) tablet daily. Problem List As Of Date 09/08/2024 Noted Resolved Diffuse myofascial pain syndrome [M79.18] 01/09/2016 Pain of both hip joints [M25.551, M25.552] 01/09/2016 DDD (degenerative disc disease), thoracic [M51.*01/09/2016 Type 2 diabetes mellitus with diabetic polyneur*04/21/2016 Morbid obesity with BMI of 50.0-59.9, adult (HC*06/18/2021 Primary hypertension [I10] 09/17/2021 Mixed hyperlipidemia [E78.2] 09/17/2021 TERI (obstructive sleep apnea) [G47.33] 09/17/2021 Systemic lupus erythematosus (HCC) [M32.9] 09/17/2021 History of colonic polyps [Z86.0100] 09/17/2021 Polyneuropathy [G62.9] 03/10/2022 Flow murmur [R01.1] 03/12/2022 Fatty liver [K76.0] 11/19/2022 11/20/2023 Hypomagnesemia [E83.42] 11/20/2022 Portal hypertensive gastropathy (HCC) [K76.6, K*05/19/2023 Mild episode of recurrent major depressive diso*05/19/2023 Vitamin D deficiency [E55.9] 05/28/2017 Diagnosed: 08/17/2023 Uncontrolled type 2 diabetes mellitus with hype*08/02/2020 Diagnosed: 08/17/2023 Irritable bowel syndrome [K58.9] 11/07/2022 Diagnosed: 08/17/2023 Abnormal cardiovascular stress test [R94.39] 11/20/2023 Diagnosed: 11/20/2023 Chest pain [R07.9] 11/20/2023 11/20/2023 Diagnosed: 11/20/2023 Class 3 severe obesity due to excess calories w*08/18/2023 11/20/2023 Diagnosed: 11/20/2023 Diverticular disease [K57.90] 11/20/2023 Diagnosed: 11/20/2023 Fibromyalgia [M79.7] 08/18/2023 Diagnosed: 11/20/2023 Left lower quadrant abdominal pain [R10.32] 11/07/2022 11/20/2023 Diagnosed: 11/20/2023 Nonalcoholic steatohepatitis (KOTHARI) [K75.81] 11/20/2023 Diagnosed: 11/20/2023 Primary insomnia [F51.01] 08/18/2023 Diagnosed: 11/20/2023 Primary osteoarthritis of both knees [M17.0] 08/18/2023 Diagnosed: 11/20/2023 Rectal hemorrhage [K62.5] 11/20/2023 11/20/2023 Diagnosed: 11/20/2023 Encounter Status:Closed by [facility]AT[facility]ARGIE on 09/08/24[facility] Telephone encounter Note* Telephone Encounter - Agnieszka Melchor APRN.CNP - 08/18/2024 7:41 AM EDT Order filed. Agnieszka Melchor APRN.CNP [facility]10-31-2024 Miscellaneous Notes* Telephone Encounter - Agnieszka Melchor APRN.CNP - 08/18/2024 7:41 AM EDT Order filed. Agnieszka Melchor APRN.CNP * Telephone Encounter - Priyanka Mccabe - 08/17/2024 1:04 PM EDT Patient called to r/s annual and mammography new appointment is 09/22/24 and current order will haveexpired on 09/17/[address] new order documented in this encounterCleveland Clinic [facility]10-30-2024 Telephone encounter Note * Telephone Encounter - Priyanka Mccabe - 08/17/2024 1:04 PM EDT Patient called to r/s annual and mammography new appointment is 09/22/24 and current order will haveexpired on 09/17/[address] new order [facility]10-29-[facility]24 Telephone encounter Note* Telephone Encounter - Vanda Sagastume MA - 08/16/2024 8:26 AM EDT Pt notified of Providers response below via Vibes. Vanda Sagastume MA [facility]10-29-2024 Miscellaneous Notes* Telephone Encounter - Vanda Sagastume MA - 08/16/2024 8:26 AM EDT Pt notified of Providers response below via Vibes. Vanda Sagastume MA * Telephone Encounter - Brenda Toth APRN.CNP - 08/15/2024 5:08 PM EDT That is fine. Please let me know what your blood pressure reads off chlorthalidone when you get home. * Telephone Encounter - Nader Blackburn LPN - 08/15/2024 3:29 PM EDT See MC message. Routing to provider per pt request. documented in this encounterCleveland Clinic [facility]10-28-2024 Telephone encounter Note * Telephone Encounter - Brenda Toth APRN.CNP - 08/15/2024 5:08 PM EDT That is fine. Please let me know what your blood pressure reads off chlorthalidone when you get home. [facility]10-28-[facility] Telephone encounter Note* Telephone Encounter - Nader Blackburn LPN - 08/15/2024 3:29 PM EDT See MC message. Routing to provider per pt request. [facility]10-[facility] Telephone encounter Note* Telephone Encounter - Lissett Almendarez LPN - 08/04/2024 12:18 PM EDT Spoke with pt and information listed below given. Pt verbalizes understanding. Lissett Almendarez LPN [facility]10-17-2024 Miscellaneous Notes* Telephone Encounter - Lissett Almendarez LPN - 08/04/2024 12:18 PM EDT Spoke with pt and information listed below given. Pt verbalizes understanding. Lissett Almendarez LPN * Telephone Encounter - Lissett Almendarez LPN - 08/04/2024 12:14 PM EDT ----- Message from Brenda Toth sent at 08/04/2024 8:19 AM EDT ----- Your magnesium level is slightly low at 1.6. Other electrolytes are okay. I think we can control that with just diet. Please increase these foods: Green leafy vegetables, such as spinach, legumes, nuts, seeds, and whole grains, avocados, soymilk,and dark chocolate are good sources. In general, foods containing dietary fiber provide magnesium. Magnesium is also added to some breakfast cereals and other fortified foods. documented in this encounterCleveland [facility]10-17-2024 Telephone encounter Note * Telephone Encounter - Lissett Almendarez LPN - 08/04/2024 12:14 PM EDT ----- Message from Brenda Toth sent at 08/04/2024 8:19 AM EDT ----- Your magnesium level is slightly low at 1.6. Other electrolytes are okay. I think we can control that with just diet. Please increase these foods: Green leafy vegetables, such as spinach, legumes, nuts, seeds, and whole grains, avocados, soymilk,and dark chocolate are good sources. In general, foods containing dietary fiber provide magnesium. Magnesium is also added to some breakfast cereals and other fortified foods. [facility]10-11-[facility] History of Present illness Narrative* Tristan Day, RT(R) - 07/29/2024 3:10 PM EDT Radiology Service Progress Note PATIENT NAME: Vilma Dial DATE OF SERVICE: July 29, 2024 TIME: 3:25 PM PATIENT IDENTITY VERIFICATION COMPLETED USING TWO (2) IDENTIFIERS: Name and Date of confirmedby patient verbally. FALL SCREENING: Has the patient had 2 falls in the last year or 1 fall with injury or currently using an Ambulatory Assistive Device (Walker, Cane, Wheelchair, Crutches, etc.)? No PATIENT GENDER DATA: Female. status: : No status: NO. PATIENT RELEVANT IMPLANT DATA REVIEWED: Yes PATIENT PRESENTS WITH AN IMPLANTABLE OR ATTACHED MATERIAL ASSEMBLER: No RADIOLOGY DEPARTMENT: General X-ray: Exam(s) Completed: Lower Extremity X- Ray(s): Knee, AP / Lat / Tunne / Merchant Right and Wt. Bearing PERIPHERAL IV DATA: Not applicable SIGNED BY: RT Farooq(Lara) July 29, 2024 3:25 PM documented in this encounterCleveland [facility]-2024 NoteHNO ID: [id number] Author: TRISTAN DAY RT(R) Service: Radiology Author Type: Technologist Type: Progress Notes Filed: 07/29/2024 15:39 Note Text: Radiology Service Progress Note PATIENT NAME: Vilma Dial DATE OF SERVICE: July 29, 2024 TIME: 3:25 PM PATIENT IDENTITY VERIFICATION COMPLETED USING TWO (2) IDENTIFIERS: Name and Date of confirmed by patient verbally. FALL SCREENING: Has the patient had 2 falls in the last year or 1 fall with injury or currently using an Ambulatory Assistive Device (Walker, Cane, Wheelchair, Crutches, etc.)? No PATIENT GENDER DATA: Female. status: : No status: NO. PATIENT RELEVANT IMPLANT DATA REVIEWED: Yes PATIENT PRESENTS WITH AN IMPLANTABLE OR ATTACHED MATERIAL ASSEMBLER: No RADIOLOGY DEPARTMENT: General X-ray: Exam(s) Completed: Lower Extremity X-Ray(s): Knee, AP / Lat / Tunne / Merchant Right and Wt. Bearing PERIPHERAL IV DATA: Not applicable SIGNED BY: RT Farooq(Lara) July 29, 2024 3:25 [facility]10-11-2024 NoteHNO ID: [id number] Author: TERRANCE SIMONS MD Service: ? Author Type: Physician Type: Progress Notes Filed: 07/29/2024 16:02 Note Text: Patient presents with: Knee Injury: RIGHT knee x 1 day HPI: Knee pain: Duration: felt a shift in her knee yesterday bending over to order picker/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 Excruciating pain with bending the knee Relieving: Pain relievers: Ice, Bengay, Voltaren Associated: history of knee arthritis, knee puffiness Pertinent negatives: Denies numbness, weakness, locking MEDICATIONS: chlorthalidone (HYGROTON) 25 mg tablet Take 1 tablet by mouth once daily. glimepiride (AMARYL) 2 mg tablet Take 2 mg by mouth daily with breakfast. losartan (COZAAR) 100 mg tablet Take 1 tablet by mouth once daily. nefazodone (SERZONE) 200 mg tablet Take 1 tablet by mouth once daily. omeprazole (PRILOSEC) 40 mg capsule Take 1 capsule by mouth every morning. fenofibrate nanocrystallized (TRICOR) 48 mg tablet etodolac (LODINE) 400 mg tablet Take 1 tablet by mouth every 12 hours. PRN vitamin E mixed 400 unit cap Take by mouth. metFORMIN (GLUCOPHAGE) 1,000 mg tablet Take 1,000 mg by mouth twice daily. sucralfate (CARAFATE) 1 gram tablet Take 1 tablet by mouth before meals and at bedtime. prn (Patient taking differently: Take 1 g by mouth three times a day. prn) dapagliflozin (FARXIGA) 10 mg tablet Take 10 mg by mouth once daily. blood sugar diagnostic (BLOOD GLUCOSE TEST) test strip Test blood sugar(s) bid times daily. Dx: Type 2 DM - Controlled E11.9 Insulin: No Cholecalciferol, Vitamin D3, 25 mcg (1,000 unit) cap Take 1,000 Units by mouth once daily. baclofen (LIORESAL) 10 mg tablet hydrocortisone (ANUSOL-HC) 2.5 % rectal cream by RECTAL route two times a day. PRN Diclofenac Sodium (VOLTAREN) 1 % gel Apply 1 g to affected area twice daily. OMEGA-3 FATTY ACIDS/FISH OIL (OMEGA 3 FISH OIL ORAL) Take by mouth. MULTIVITAMIN TAB Take one(1) tablet daily. ALLERGIES: ALLERGIES Allergen Reactions Ciprofloxacin Other: See Comments Change in urine color Januvia [Sitaglipti* GI Upset Jardiance [Empaglif* Intolerance Macrodantin [Nitrof* Ozempic [Semaglutid* Unknown Pravastatin Myalgia Ultram [Tramadol Hc* Swelling Zanaflex [Tizanidin* Unknown Heart racing VITALS: BP 152/78 Pulse 77 Resp 18 Wt (!) 137.1 kg (302 lb 4 oz) LMP 11/09/2005 SpO2 95% BMI 50.06 kg/m? PHYSICAL EXAM: GEN: pleasant, alert, no acute distress KNEE: right. No erythema or deformity. Evaluation of effusion limited by body habitus. Very limited flexion due to pain. No crepitus. Medial anterior joint line tenderness. No patellar tenderness. Stable to varus and valgus strain. Negative anterior drawer test. Negative posterior drawer test. ASSESSMENT/PLAN: 1. Acute pain of right knee - ICD9: 719.46, ICD10: M25.561 - XR KNEE GENERAL 4V AP BOTH/PA BOTH/LAT/MERC RIGHT worsened degenerative changes. Acute fracture or dislocation. Treat with rest, ice, and anti-inflammatory. NSAIDs are limited due to stomach irritation. She has etodolac from her java architect and will use that over the weekend. Follow-up with orthopedics if not improving. Terrance Simons, [facility]10-11-2024 History of Present illness Narrative* Terrance Simons MD - 07/29/2024 3:02 PM EDT Patient presents with: Knee Injury: RIGHT knee x 1 day HPI: Knee pain: Duration: felt a shift in her knee yesterday bending over to order picker/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 Excruciating pain with bending theknee Relieving: Pain relievers: Ice, Bengay, Voltaren Associated: history of knee arthritis, knee puffiness Pertinent negatives: Denies numbness, weakness, locking MEDICATIONS: chlorthalidone (HYGROTON) 25 mg tablet Take 1 tablet by mouth once daily. glimepiride (AMARYL) 2 mg tablet Take 2 mg by mouth daily with breakfast. losartan (COZAAR) 100 mg tablet Take 1 tablet by mouth once daily. nefazodone (SERZONE) 200 mg tablet Take 1 tablet by mouth once daily. omeprazole (PRILOSEC) 40 mg capsule Take 1 capsule by mouth every morning. fenofibrate nanocrystallized (TRICOR) 48 mg tablet etodolac (LODINE) 400 mg tablet Take 1 tablet by mouth every 12 hours. PRN vitamin E mixed 400 unit cap Take by mouth. metFORMIN (GLUCOPHAGE) 1,000 mg tablet Take 1,000 mg by mouth twice daily. sucralfate (CARAFATE) 1 gram tablet Take 1 tablet by mouth before meals and at bedtime. prn (Patient taking differently: Take 1 g by mouth three times a day. prn) dapagliflozin (FARXIGA) 10 mg tablet Take 10 mg by mouth once daily. blood sugar diagnostic (BLOOD GLUCOSE TEST) test strip Test blood sugar(s) bid times daily. Dx: Type 2 DM - Controlled E11.9 Insulin: No Cholecalciferol, Vitamin D3, 25 mcg (1,000 unit) cap Take 1,000 Units by mouth once daily. baclofen (LIORESAL) 10 mg tablet hydrocortisone (ANUSOL-HC) 2.5 % rectal cream by RECTAL route two times a day. PRN Diclofenac Sodium (VOLTAREN) 1 % gel Apply 1 g to affected area twice daily. OMEGA-3 FATTY ACIDS/FISH OIL (OMEGA 3 FISH OIL ORAL) Take by mouth. MULTIVITAMIN TAB Take one(1) tablet daily. ALLERGIES: ALLERGIES Allergen Reactions Ciprofloxacin Other: See Comments Change in urine color Januvia [Sitaglipti* GI Upset Jardiance [Empaglif* Intolerance Macrodantin [Nitrof* Ozempic [Semaglutid* Unknown Pravastatin Myalgia Ultram [Tramadol Hc* Swelling Zanaflex [Tizanidin* Unknown Heart racing VITALS: BP 152/78 Pulse 77 Resp 18 Wt (!) 137.1 kg (302 lb 4 oz) LMP 11/09/2005 SpO2 95% BMI 50.06 kg/m PHYSICAL EXAM: GEN: pleasant, alert, no acute distress KNEE: right. No erythema or deformity. Evaluation of effusion limited by body habitus. Very limitedflexion due to pain. No crepitus. Medial anterior joint line tenderness. No patellar tenderness. Stable to varus and valgus strain. Negative anterior drawer test. Negative posterior drawer test. ASSESSMENT/PLAN: 1. Acute pain of right knee - ICD9: 719.46, ICD10: M25.561 - XR KNEE GENERAL 4V AP BOTH/PA BOTH/LAT/MERC RIGHT worsened degenerative changes. Acute fracture or dislocation. Treat with rest, ice, and anti-inflammatory. NSAIDs are limited due to stomach irritation. She has etodolac from her java architect and will use that over the weekend. Follow-up with orthopedics if not improving. Terrance Simons MD documented in this encounterC[facility]10-11-2024 Telephone encounter Note * Telephone Encounter - Jenny Knapp LPN - 07/29/2024 2:24 PM EDT Patient calling she twisted her right knee and having issues trying to bend her right leg. She thinks it is swollen, having problems sitting on the toilet and getting back up. Advised PCP is out and no appts today with [facility]. Advised to go to express care for evaluation, aware Radiology closes at 5 pm. [facility]10-11-[facility]24 Miscellaneous Notes* Telephone Encounter - Jenny Knapp LPN - 07/29/2024 2:24 PM EDT Patient calling she twisted her right knee and having issues trying to bend her right leg. She thinks it is swollen, having problems sitting on the toilet and getting back up. Advised PCP is out and no appts today with RECOVERY SPECIALIST's. Advised to go to express care for evaluation, aware Radiology closes at 5 pm. documented in this encounterCleveland [facility]09-30-2024 Telephone encounter Note * Telephone Encounter - Brenda Toth APRN.APPEALS BOARD REFEREE - 07/18/2024 5:18 PM EDT That seems reasonable. Lets add chlorthalidone 25 mg dialy. We'll need a renal panel in 2 weeks. [facility]09-30-[facility] Miscellaneous Notes* Telephone Encounter - Brenda Toth APRN.CNP - 07/18/2024 5:18 PM EDT That seems reasonable. Lets add chlorthalidone 25 mg dialy. We'll need a renal panel in 2 weeks. documented in this encounterCleveland Clinic [facility]09-10-2024 Telephone encounter Note * Telephone Encounter - Vanda Sagastume MA - 06/28/2024 9:51 AM EDT Pt reviewed US results on mychart. Sent message to pt with results and update from Provider. If questions to contact the office. Vanda Sagastume MA [facility]09-10-2024 Miscellaneous Notes* Telephone Encounter - Vanda Sagastume MA - 06/28/2024 9:51 AM EDT Pt reviewed US results on mychart. Sent message to pt with results and update from Provider. If questions to contact the office. Vanda Sagastume MA * Telephone Encounter - Ana Gould MA - 06/27/2024 1:44 PM EDT Message left for pt to call back for results. Ana Gould MA * Telephone Encounter - Ana Gould MA - 06/27/2024 1:42 PM EDT ----- Message from Brenda Toth sent at 06/27/2024 12:06 PM EDT ----- Ultrasound of the abdominal wall was normal. No hernia. Likely just a strain. documented in this encounterCleveland Clinic [facility]09-09-2024 Telephone encounter Note * Telephone Encounter - Ana Gould MA - 06/27/2024 1:44 PM EDT Message left for pt to call back for results. Ana Gould MA [facility]09-09-2024 Telephone encounter Note* Telephone Encounter - Ana Gould MA - 06/27/2024 1:42 PM EDT ----- Message from Brenda Toth sent at 06/27/2024 12:06 PM EDT ----- Ultrasound of the abdominal wall was normal. No hernia. Likely just a strain. [facility]09-06-[facility] History of Present illness Narrative* Kailee Rodriguez RDMS - 06/24/2024 9:15 AM EDT Radiology Service Progress Note PATIENT NAME: Vilma Dial DATE OF SERVICE: June 24, 2024 TIME: 10:43 AM PATIENT IDENTITY VERIFICATION COMPLETED USING TWO (2) IDENTIFIERS: Name and Date of confirmedby patient verbally. FALL SCREENING: Has the patient had 2 falls in the last year or 1 fall with injury or currently using an Ambulatory Assistive Device (Walker, Cane, Wheelchair, Crutches, etc.)? No PATIENT GENDER DATA: Female. status: : No status: NO. PATIENT RELEVANT IMPLANT DATA REVIEWED: Not Applicable PATIENT PRESENTS WITH AN IMPLANTABLE OR ATTACHED MATERIAL ASSEMBLER: No RADIOLOGY DEPARTMENT: Ultrasound PERIPHERAL IV DATA: Not applicable SIGNED BY: Kailee Rodriguez RDMS T June 24, 2024 10:43 AM documented in this encounterCleveland Clinic [facility]09-06-2024 NoteHNO ID: [id number] Author: KAILEE RODRIGUEZ RDMS Service: ? Author Type: Shop Fitter Type: Progress Notes Filed: 06/24/2024 10:43 Note Text: Radiology Service Progress Note PATIENT NAME: Vilma Dial DATE OF SERVICE: June 24, 2024 TIME: 10:43 AM PATIENT IDENTITY VERIFICATION COMPLETED USING TWO (2) IDENTIFIERS: Name and Date of confirmed by patient verbally. FALL SCREENING: Has the patient had 2 falls in the last year or 1 fall with injury or currently using an Ambulatory Assistive Device (Walker, Cane, Wheelchair, Crutches, etc.)? No PATIENT GENDER DATA: Female. status: : No status: NO. PATIENT RELEVANT IMPLANT DATA REVIEWED: Not Applicable PATIENT PRESENTS WITH AN IMPLANTABLE OR ATTACHED MATERIAL ASSEMBLER: No RADIOLOGY DEPARTMENT: Ultrasound PERIPHERAL IV DATA: Not applicable SIGNED BY: Kailee Rodriguez RDMS RVT June 24, 2024 10:43 [facility]08-30-2024 Instructions* Patient Instructions* Brenda Toth APRN.CNP - 06/17/2024 11:10 AM EDT 1) ultrasound of abdominal wall 2) use baclofen if needed 3) follow up in 11/21/24 Signs and symptoms of hernia entrapment: Vomiting Severe pain in a bulging knot near umbilicus Acute constipation documented in this encounterCleveland Clinic [facility]08-30-2024 NoteHNO ID: [id number] Author: BRENDA TOTH APRN.CNP Service: ? Author Type: Clinical Nurse Specialist Type: Progress Notes Filed: 06/17/2024 11:12 Note Text: This is a 68 year old female who presents today with: Patient presents with: Abdominal Pain: Patient believes hernia HISTORY OF PRESENT ILLNESS: Vilma Dial is a 68 year old female. Patient presents with: Abdominal Pain: Patient believes hernia Pain to the right of umbilicus. Hx of umbilical hernia repair. Carried laundry up from basement on on Thursday. No immediate pain. With walking around upstairs, she noticed the pain. Pain has been constant. Initially . Was sharp stinging pain. Has been improving. Today just sore. Much better. No fever or chills. Bowel movements regular and normal. No blood in stool. Walking makes it worse. Lying down makes it better. PAST MEDICAL HISTORY: PAST MEDICAL HISTORY No date: Degenerative disc disease, lumbar No date: Diabetes (HCC) No date: Fibromyalgia No date: GERD (gastroesophageal reflux disease) No date: Hypercholesterolemia No date: Insomnia No date: Lupus (HCC) No date: Osteoarthritis PAST SURGICAL HISTORY No date: ADENOIDECTOMY PRIMARY Comment: Adenoidectomy No date: APPENDECTOMY No date: CHOLECYSTECTOMY Comment: Cholecystectomy 12/24/10: COLONOSCOPY Comment: TVA 02/22/13: COLONOSCOPY Comment: no polyps 04/30/2016: COLONOSCOPY FLX DX W/COLLJ SPEC WHEN PFRMD Comment: Colonoscopy 07/11/2019: COLONOSCOPY FLX DX W/COLLJ SPEC WHEN PFRMD Comment: repeat in 5 years 04/30/2016: ESOPHAGOGASTRODUODENOSCOPY TRANSORAL DIAGNOSTIC Comment: EGD 07/11/2019: ESOPHAGOGASTRODUODENOSCOPY TRANSORAL DIAGNOSTIC Comment: EGD No date: LIG/TRNSXJ FLP TUBE ABDL/VAG APPR UNI/BI Comment: Tubal ligation No date: PAST SURGICAL HISTORY OF Comment: colon polypectomy No date: PAST SURGICAL HISTORY OF Comment: hernia repair No date: TONSILLECTOMY PRIMARY/SECONDARY Comment: Tonsillectomy No date: TOTAL ABDOMINAL HYSTERECT W/WO RMVL TUBE OVARY Comment: Hysterectomy, JESSICA supracervical ALLERGIES Ciprofloxacin, Januvia [Sitagliptin], Jardiance [Empagliflozin], Macrodantin [Nitrofurantoin], Ozempic [Semaglutide], Pravastatin, Ultram [Tramadol Hcl], and Zanaflex [Tizanidine] MEDICATIONS Current Outpatient Medications Medication Sig glimepiride (AMARYL) 2 mg tablet Take 2 mg by mouth daily with breakfast. losartan (COZAAR) 100 mg tablet Take 1 tablet by mouth once daily. nefazodone (SERZONE) 200 mg tablet Take 1 tablet by mouth once daily. omeprazole (PRILOSEC) 40 mg capsule Take 1 capsule by mouth every morning. fenofibrate nanocrystallized (TRICOR) 48 mg tablet etodolac (LODINE) 400 mg tablet Take 1 tablet by mouth every 12 hours. PRN vitamin E mixed 400 unit cap Take by mouth. metFORMIN (GLUCOPHAGE) 1,000 mg tablet Take 1,000 mg by mouth twice daily. sucralfate (CARAFATE) 1 gram tablet Take 1 tablet by mouth before meals and at bedtime. prn (Patient taking differently: Take 1 g by mouth three times a day. prn) dapagliflozin (FARXIGA) 10 mg tablet Take 10 mg by mouth once daily. blood sugar diagnostic (BLOOD GLUCOSE TEST) test strip Test blood sugar(s) bid times daily. Dx: Type 2 DM - Controlled E11.9 Insulin: No Cholecalciferol, Vitamin D3, 25 mcg (1,000 unit) cap Take 1,000 Units by mouth once daily. baclofen (LIORESAL) 10 mg tablet hydrocortisone (ANUSOL-HC) 2.5 % rectal cream by RECTAL route two times a day. PRN Diclofenac Sodium (VOLTAREN) 1 % gel Apply 1 g to affected area twice daily. OMEGA-3 FATTY ACIDS/FISH OIL (OMEGA 3 FISH OIL ORAL) Take by mouth. MULTIVITAMIN TAB Take one(1) tablet daily. No current facility-administered medications for this visit. FAMILY HISTORY Problem Relation Age of Onset Heart Mother Diabetes Mother COPD Mother other (lupus) Mother other (rheumatoid) Mother Heart Sister SD at age 41 Diabetes Sister Aneurysm Sister Abdominal other (aortic stenosis) Sister other (spesis) Sister Social History Tobacco Use Smoking status: Never Passive exposure: Current Smokeless tobacco: Never Vaping Use Vaping status: Never Used Substance Use Topics Alcohol use: No Drug use: No EXAM: BP 164/84 Pulse 67 Resp 16 Wt (!) 139.1 kg (306 lb 9.6 oz) LMP 11/09/2005 SpO2 95% BMI 50.78 kg/m? PHYSICAL EXAM: Physical Exam Vitals reviewed. Constitutional: Appearance: Normal appearance. She is obese. Cardiovascular: Rate and Rhythm: Normal rate and regular rhythm. Pulses: Normal pulses. Heart sounds: Normal heart sounds. Pulmonary: Effort: Pulmonary effort is normal. Breath sounds: Normal breath sounds. Abdominal: General: Bowel sounds are normal. There is no distension. Palpations: Abdomen is soft. There is no mass. Tenderness: There is no abdominal tenderness. There is no guarding or rebound. Hernia: No hernia is present. Comments: Coughing does not cause pressure on (more content not included)... [facility]08-30-2024 History of Present illness Narrative* Brenda Toth APRN.APPEALS BOARD REFEREE - 06/17/2024 10:54 AM EDT This is a 68 year old female who presents today with: Patient presents with: Abdominal Pain: Patient believes hernia HISTORY OF PRESENT ILLNESS: Vilma Dial is a 68 year old female. Patient presents with: Abdominal Pain: Patient believes hernia Pain to the right of umbilicus. Hx of umbilical hernia repair. Carried laundry up from basement on on Thursday. No immediate pain. With walking around upstairs, she noticed the pain. Pain has been constant. Initially . Was sharp stinging pain. Has been improving. Today just sore. Much better. No fever or chills. Bowel movements regular and normal. No blood in stool. Walking makes it worse. Lying down makes it better. PAST MEDICAL HISTORY: PAST MEDICAL HISTORY No date: Degenerative disc disease, lumbar No date: Diabetes (HCC) No date: Fibromyalgia No date: GERD (gastroesophageal reflux disease) No date: Hypercholesterolemia No date: Insomnia No date: Lupus (HCC) No date: Osteoarthritis PAST SURGICAL HISTORY No date: ADENOIDECTOMY PRIMARY <AGE 12 Comment: Adenoidectomy No date: APPENDECTOMY No date: CHOLECYSTECTOMY Comment: Cholecystectomy 12/24/10: COLONOSCOPY Comment: TVA 02/22/13: COLONOSCOPY Comment: no polyps 04/30/2016: COLONOSCOPY FLX DX W/COLLJ SPEC WHEN PFRMD Comment: Colonoscopy 07/11/2019: COLONOSCOPY FLX DX W/COLLJ SPEC WHEN PFRMD Comment: repeat in 5 years 04/30/2016: ESOPHAGOGASTRODUODENOSCOPY TRANSORAL DIAGNOSTIC Comment: EGD 07/11/2019: ESOPHAGOGASTRODUODENOSCOPY TRANSORAL DIAGNOSTIC Comment: EGD No date: LIG/TRNSXJ FLP TUBE ABDL/VAG APPR UNI/BI Comment: Tubal ligation No date: PAST SURGICAL HISTORY OF Comment: colon polypectomy No date: PAST SURGICAL HISTORY OF Comment: hernia repair No date: TONSILLECTOMY PRIMARY/SECONDARY <AGE 12 Comment: Tonsillectomy No date: TOTAL ABDOMINAL HYSTERECT W/WO RMVL TUBE OVARY Comment: Hysterectomy, JESSICA supracervical ALLERGIES Ciprofloxacin, Januvia [Sitagliptin], Jardiance [Empagliflozin], Macrodantin [Nitrofurantoin], Ozempic [Semaglutide], Pravastatin, Ultram [Tramadol Hcl], and Zanaflex [Tizanidine] MEDICATIONS Current Outpatient Medications Medication Sig glimepiride (AMARYL) 2 mg tablet Take 2 mg by mouth daily with breakfast. losartan (COZAAR) 100 mg tablet Take 1 tablet by mouth once daily. nefazodone (SERZONE) 200 mg tablet Take 1 tablet by mouth once daily. omeprazole (PRILOSEC) 40 mg capsule Take 1 capsule by mouth every morning. fenofibrate nanocrystallized (TRICOR) 48 mg tablet etodolac (LODINE) 400 mg tablet Take 1 tablet by mouth every 12 hours. PRN vitamin E mixed 400 unit cap Take by mouth. metFORMIN (GLUCOPHAGE) 1,000 mg tablet Take 1,000 mg by mouth twice daily. sucralfate (CARAFATE) 1 gram tablet Take 1 tablet by mouth before meals and at bedtime. prn (Patient taking differently: Take 1 g by mouth three times a day. prn) dapagliflozin (FARXIGA) 10 mg tablet Take 10 mg by mouth once daily. blood sugar diagnostic (BLOOD GLUCOSE TEST) test strip Test blood sugar(s) bid times daily. Dx: Type 2 DM - Controlled E11.9 Insulin: No Cholecalciferol, Vitamin D3, 25 mcg (1,000 unit) cap Take 1,000 Units by mouth once daily. baclofen (LIORESAL) 10 mg tablet hydrocortisone (ANUSOL-HC) 2.5 % rectal cream by RECTAL route two times a day. PRN Diclofenac Sodium (VOLTAREN) 1 % gel Apply 1 g to affected area twice daily. OMEGA-3 FATTY ACIDS/FISH OIL (OMEGA 3 FISH OIL ORAL) Take by mouth. MULTIVITAMIN TAB Take one(1) tablet daily. No current facility-administered medications for this visit. FAMILY HISTORY Problem Relation Age of Onset Heart Mother Diabetes Mother COPD Mother other (lupus) Mother other (rheumatoid) Mother Heart Sister SD at age 41 Diabetes Sister Aneurysm Sister Abdominal other (aortic stenosis) Sister other (spesis) Sister Social History Tobacco Use Smoking status: Never Passive exposure: Current Smokeless tobacco: Never Vaping Use Vaping status: Never Used Substance Use Topics Alcohol use: No Drug use: No EXAM: BP 164/84 Pulse 67 Resp 16 Wt (!) 139.1 kg (306 lb 9.6 oz) LMP 11/09/2005 SpO2 95% BMI 50.78 kg/m PHYSICAL EXAM: Physical Exam Vitals reviewed. Constitutional: Appearance: Normal appearance. She is obese. Cardiovascular: Rate and Rhythm: Normal rate and regular rhythm. Pulses: Normal pulses. Heart sounds: Normal heart sounds. Pulmonary: Effort: Pulmonary effort is normal. Breath sounds: Normal breath sounds. Abdominal: General: Bowel sounds are normal. There is no distension. Palpations: Abdomen is soft. There is no mass. Tenderness: There is no abdominal tenderness. There is no guarding or rebound. Hernia: No hernia is present. Comments: Coughing does not cause pressure on abdominal wall Musculoskeletal: General: Normal range of motion. Skin: General: Skin is warm and dry. Neurological: Mental Status: She is alert. LABS: ASSESSMENT/PLAN: 1. Abdominal wall strain, initial encounter - ICD9: 848.8, ICD10: S39.011A Improving - US ABDOMEN COMPLETE - has baclofen if needed - educated on signs and symptoms of incarcerated hernia Discussed treatment plan and patient voices understanding. Patient's questions answered appropriately. Medications and potential side effects were discussed and patient voices understanding. Return to the office as scheduled or as needed for worsening/no improvement. Brenda Toth APRN.CNP documented in this encounterCleveland Clinic [facility]08-02-2024 History of Present illness Narrative* Elizabeth Temple RT(R) - 05/20/2024 11:20 AM EDT Radiology Service Progress Note PATIENT NAME: Vilma Dial DATE OF SERVICE: May 20, 2024 TIME: 11:19 AM PATIENT IDENTITY VERIFICATION COMPLETED USING TWO (2) IDENTIFIERS: Name and Date of confirmedby patient verbally. FALL SCREENING: Has the patient had 2 falls in the last year or 1 fall with injury or currently using an Ambulatory Assistive Device (Walker, Cane, Wheelchair, Crutches, etc.)? No PATIENT GENDER DATA: Female. status: : No status: NO. PATIENT RELEVANT IMPLANT DATA REVIEWED: Not Applicable PATIENT PRESENTS WITH AN IMPLANTABLE OR ATTACHED MATERIAL ASSEMBLER: No RADIOLOGY DEPARTMENT: General X-ray: Exam(s) Completed: Spine X-Ray(s): Lumbar AP / LAT / L5-S1 PERIPHERAL IV DATA: Not applicable SIGNED BY: RT Teja(R) May 20, 2024 11:19 AM documented in this encounterCleveland Clinic [facility]08-02-2024 NoteHNO ID: [id number] Author: ELIZABETH TEMPLE RT(R) Service: Radiology Author Type: Technologist Type: Progress Notes Filed: 05/20/2024 11:28 Note Text: Radiology Service Progress Note PATIENT NAME: Vilma Dial DATE OF SERVICE: May 20, 2024 TIME: 11:19 AM PATIENT IDENTITY VERIFICATION COMPLETED USING TWO (2) IDENTIFIERS: Name and Date of confirmed by patient verbally. FALL SCREENING: Has the patient had 2 falls in the last year or 1 fall with injury or currently using an Ambulatory Assistive Device (Walker, Cane, Wheelchair, Crutches, etc.)? No PATIENT GENDER DATA: Female. status: : No status: NO. PATIENT RELEVANT IMPLANT DATA REVIEWED: Not Applicable PATIENT PRESENTS WITH AN IMPLANTABLE OR ATTACHED MATERIAL ASSEMBLER: No RADIOLOGY DEPARTMENT: General X-ray: Exam(s) Completed: Spine X-Ray(s): Lumbar AP / LAT / L5-S1 PERIPHERAL IV DATA: Not applicable SIGNED BY: RT Teja(Lara) May 20, 2024 11:19 [facility]08-02-2024 NoteHNO ID: [id number] Author: RON DUENAS MD Service: ? Author Type: Physician Type: Progress Notes Filed: 05/20/2024 16:41 Note Text: Patient presents with: 6 Month Exam HPI: Patient presents today for office visit for follow up. Patient complains of: left hip/knee pain. Duration: started last night Location:goes down leg Has been having some trouble on and off with pain in hips bilateral that goes down legs. Things that improve symptoms :didn't find anything last night Has severe oa with her knees. Pain is more in the left lower back. No numbness or weakness in the leg. No trauma. Is not as bad today. HTN: Patient is compliant with meds Yes Monitors bp at home: Yes. Brings to office. Denies side effects: Yes. Chest pain: No. Dyspnea: No. Edema: stable. Palpitations: No. Syncope: No. Headache: No. Dizziness: No. Follows with [facility] DM: follow with Dr Chino. A1c was 6.3. Seeing rheumatology as well at . Takes serzone for her fibro and anxiety. Doing well. Occasional reflux worse at night. MEDICATIONS: Current Outpatient Medications Medication Sig nefazodone (SERZONE) 200 mg tablet Take 1 tablet by mouth once daily. omeprazole (PRILOSEC) 40 mg capsule Take 1 capsule by mouth every morning. fenofibrate nanocrystallized (TRICOR) 48 mg tablet etodolac (LODINE) 400 mg tablet Take 1 tablet by mouth every 12 hours. PRN losartan (COZAAR) 100 mg tablet TAKE 1 TABLET BY MOUTH EVERY DAY vitamin E mixed 400 unit cap Take by mouth. metFORMIN (GLUCOPHAGE) 1,000 mg tablet Take 1,000 mg by mouth twice daily. sucralfate (CARAFATE) 1 gram tablet Take 1 tablet by mouth before meals and at bedtime. prn (Patient taking differently: Take 1 g by mouth three times a day. prn) dapagliflozin (FARXIGA) 10 mg tablet Take 10 mg by mouth once daily. blood sugar diagnostic (BLOOD GLUCOSE TEST) test strip Test blood sugar(s) bid times daily. Dx: Type 2 DM - Controlled E11.9 Insulin: No glimepiride (AMARYL) 1 mg tablet Taking 1.5 tablets a day Cholecalciferol, Vitamin D3, 25 mcg (1,000 unit) cap Take 1,000 Units by mouth once daily. baclofen (LIORESAL) 10 mg tablet hydrocortisone (ANUSOL-HC) 2.5 % rectal cream by RECTAL route two times a day. PRN Diclofenac Sodium (VOLTAREN) 1 % gel Apply 1 g to affected area twice daily. OMEGA-3 FATTY ACIDS/FISH OIL (OMEGA 3 FISH OIL ORAL) Take by mouth. MULTIVITAMIN TAB Take one(1) tablet daily. No current facility-administered medications for this visit. ALLERGIES: ALLERGIES Allergen Reactions Ciprofloxacin Other: See Comments Change in urine color Januvia [Sitaglipti* GI Upset Jardiance [Empaglif* Intolerance Macrodantin [Nitrof* Ozempic [Semaglutid* Unknown Pravastatin Myalgia Ultram [Tramadol Hc* Swelling Zanaflex [Tizanidin* Unknown Heart racing PAST MEDICAL HISTORY No date: Degenerative disc disease, lumbar No date: Diabetes (HCC) No date: Fibromyalgia No date: GERD (gastroesophageal reflux disease) No date: Hypercholesterolemia No date: Insomnia No date: Lupus (HCC) No date: Osteoarthritis PAST SURGICAL HISTORY No date: ADENOIDECTOMY PRIMARY Comment: Adenoidectomy No date: APPENDECTOMY No date: CHOLECYSTECTOMY Comment: Cholecystectomy 12/24/10: COLONOSCOPY Comment: TVA 02/22/13: COLONOSCOPY Comment: no polyps 04/30/2016: COLONOSCOPY FLX DX W/COLLJ SPEC WHEN PFRMD Comment: Colonoscopy 07/11/2019: COLONOSCOPY FLX DX W/COLLJ SPEC WHEN PFRMD Comment: repeat in 5 years 04/30/2016: ESOPHAGOGASTRODUODENOSCOPY TRANSORAL DIAGNOSTIC Comment: EGD 07/11/2019: ESOPHAGOGASTRODUODENOSCOPY TRANSORAL DIAGNOSTIC Comment: EGD No date: LIG/TRNSXJ FLP TUBE ABDL/VAG APPR UNI/BI Comment: Tubal ligation No date: PAST SURGICAL HISTORY OF Comment: colon polypectomy No date: PAST SURGICAL HISTORY OF Comment: hernia repair No date: TONSILLECTOMY PRIMARY/SECONDARY Comment: Tonsillectomy No date: TOTAL ABDOMINAL HYSTERECT W/WO RMVL TUBE OVARY Comment: Hysterectomy, JESSICA supracervical FAMILY HISTORY Problem Relation Age of Onset Heart Mother Diabetes Mother COPD Mother other (lupus) Mother other (rheumatoid) Mother Heart Sister [place] at age 41 Diabetes Sister Aneurysm Sister Abdominal other (aortic stenosis) Sister other (spesis) Sister Social History Tobacco Use Smoking status: Never Passive exposure: Current Smokeless tobacco: Never Vaping Use Vaping Use: Never used Substance Use Topics Alcohol use: No Drug use: No Reviewed current medications, allergies, past medical history, surgical history, family history and social history today. REVIEW OF SYSTEMS All other reviewed and negative other than HPI. HEALTH MAINTENANCE: Reviewed health maintenance issues today and recommended the following in detail. Anxiety Screening Never done BP Controlled (<130/80) Never done Cervical Cancer Screening -sees in July. Advance Directive (more content not included)...[facility] 05-20-2024 History of Present illness Narrative* Ron Duenas MD - 05/20/2024 10:34 AM EDT Patient presents with: 6 Month Exam HPI: Patient presents today for office visit for follow up. Patient complains of: left hip/knee pain. Duration: started last night Location:goes down leg Has been having some trouble on and off with pain in hips bilateral that goes down legs. Things that improve symptoms :didn't find anything last night Has severe oa with her knees. Pain is more in the left lower back. No numbness or weakness in the leg. No trauma. Is not as bad today. HTN: Patient is compliant with meds Yes Monitors bp at home: Yes. Brings to office. Denies side effects: Yes. Chest pain: No. Dyspnea: No. Edema: stable. Palpitations: No. Syncope: No. Headache: No. Dizziness: No. Follows with [facility] DM: follow with Dr Chino. A1c was 6.3. Seeing rheumatology as well at . Takes serzone for her fibro and anxiety. Doing well. Occasional reflux worse at night. MEDICATIONS: Current Outpatient Medications Medication Sig nefazodone (SERZONE) 200 mg tablet Take 1 tablet by mouth once daily. omeprazole (PRILOSEC) 40 mg capsule Take 1 capsule by mouth every morning. fenofibrate nanocrystallized (TRICOR) 48 mg tablet etodolac (LODINE) 400 mg tablet Take 1 tablet by mouth every 12 hours. PRN losartan (COZAAR) 100 mg tablet TAKE 1 TABLET BY MOUTH EVERY DAY vitamin E mixed 400 unit cap Take by mouth. metFORMIN (GLUCOPHAGE) 1,000 mg tablet Take 1,000 mg by mouth twice daily. sucralfate (CARAFATE) 1 gram tablet Take 1 tablet by mouth before meals and at bedtime. prn (Patient taking differently: Take 1 g by mouth three times a day. prn) dapagliflozin (FARXIGA) 10 mg tablet Take 10 mg by mouth once daily. blood sugar diagnostic (BLOOD GLUCOSE TEST) test strip Test blood sugar(s) bid times daily. Dx: Type 2 DM - Controlled E11.9 Insulin: No glimepiride (AMARYL) 1 mg tablet Taking 1.5 tablets a day Cholecalciferol, Vitamin D3, 25 mcg (1,000 unit) cap Take 1,000 Units by mouth once daily. baclofen (LIORESAL) 10 mg tablet hydrocortisone (ANUSOL-HC) 2.5 % rectal cream by RECTAL route two times a day. PRN Diclofenac Sodium (VOLTAREN) 1 % gel Apply 1 g to affected area twice daily. OMEGA-3 FATTY ACIDS/FISH OIL (OMEGA 3 FISH OIL ORAL) Take by mouth. MULTIVITAMIN TAB Take one(1) tablet daily. No current facility-administered medications for this visit. ALLERGIES: ALLERGIES Allergen Reactions Ciprofloxacin Other: See Comments Change in urine color Januvia [Sitaglipti* GI Upset Jardiance [Empaglif* Intolerance Macrodantin [Nitrof* Ozempic [Semaglutid* Unknown Pravastatin Myalgia Ultram [Tramadol Hc* Swelling Zanaflex [Tizanidin* Unknown Heart racing PAST MEDICAL HISTORY No date: Degenerative disc disease, lumbar No date: Diabetes (HCC) No date: Fibromyalgia No date: GERD (gastroesophageal reflux disease) No date: Hypercholesterolemia No date: Insomnia No date: Lupus (HCC) No date: Osteoarthritis PAST SURGICAL HISTORY No date: ADENOIDECTOMY PRIMARY <AGE 12 Comment: Adenoidectomy No date: APPENDECTOMY No date: CHOLECYSTECTOMY Comment: Cholecystectomy 12/24/10: COLONOSCOPY Comment: TVA 02/22/13: COLONOSCOPY Comment: no polyps 04/30/2016: COLONOSCOPY FLX DX W/COLLJ SPEC WHEN PFRMD Comment: Colonoscopy 07/11/2019: COLONOSCOPY FLX DX W/COLLJ SPEC WHEN PFRMD Comment: repeat in 5 years 04/30/2016: ESOPHAGOGASTRODUODENOSCOPY TRANSORAL DIAGNOSTIC Comment: EGD 07/11/2019: ESOPHAGOGASTRODUODENOSCOPY TRANSORAL DIAGNOSTIC Comment: EGD No date: LIG/TRNSXJ FLP TUBE ABDL/VAG APPR UNI/BI Comment: Tubal ligation No date: PAST SURGICAL HISTORY OF Comment: colon polypectomy No date: PAST SURGICAL HISTORY OF Comment: hernia repair No date: TONSILLECTOMY PRIMARY/SECONDARY <AGE 12 Comment: Tonsillectomy No date: TOTAL ABDOMINAL HYSTERECT W/WO RMVL TUBE OVARY Comment: Hysterectomy, JESSICA supracervical FAMILY HISTORY Problem Relation Age of Onset Heart Mother Diabetes Mother COPD Mother other (lupus) Mother other (rheumatoid) Mother Heart Sister [place] at age 41 Diabetes Sister Aneurysm Sister Abdominal other (aortic stenosis) Sister other (spesis) Sister Social History Tobacco Use Smoking status: Never Passive exposure: Current Smokeless tobacco: Never Vaping Use Vaping Use: Never used Substance Use Topics Alcohol use: No Drug use: No Reviewed current medications, allergies, past medical history, surgical history, family history andsocial history today. REVIEW OF SYSTEMS All other reviewed and negative other than HPI. HEALTH MAINTENANCE: Reviewed health maintenance issues today and recommended the following in detail. Anxiety Screening Never done BP Controlled (<130/80) Never done Cervical Cancer Screening -sees in July. Advance Directive Discussion due on 10/19/2023 Urine Albumin:Creatinine Ratio due on 05/22/2024 LDL Cholesterol due on 05/22/2024 Colorectal Cancer Screening due on 07/11/2024 Mammogram Screening due on 08/17/2024 Follows with podiatry and optho VITALS: BP 142/94 Pulse 71 Wt (!) 137.4 kg (303 lb) LMP 11/09/2005 SpO2 94% BMI 50.18 kg/m Last 4 Encounter Wt Readings: Date: Wt: 12/30/2023 137 kg (302 lb) 11/20/2023 139.7 kg (308 lb) 09/24/2023 142 kg (313 lb) 09/17/2023 142 kg (313 lb) PHYSICAL EXAMINATION: General appearance: Well appearing, alert, in no acute distress, well-hydrated, well nourished. Skin: Skin color, texture, turgor normal, no suspicious rashes or lesions Head: Normocephalic, no masses, lesions, tenderness or abnormalities Neck: Supple, no adenopathy; thyroid symmetric, normal size, no bruits Lungs: Lungs clear to auscultation. No wheezing, rhonchi, rales Heart: RRR, II/ murmur noted in the past. Has had a normal echo for same. Abdomen: Normal abdominal exam, Abdomen soft, non-tender. Bowel sounds normal. No masses, organomegaly Extremities: No deformities, no increased edema, skin discoloration, clubbing or cyanosis. Good capillary refill. BACK: Normal curvature of spine. No spine tenderness. Straight leg test negative. Deep tendon reflexes 2+/4 at patellas. Normal lower extremity strength. ASSESSMENT/PLAN: 1. Type 2 diabetes mellitus with diabetic polyneuropathy, without long-term current use of insulin (HCC) - ICD9: 250.60, 357.2, ICD10: E11.42 (primary diagnosis) - stable. Continue to follow. 2. Polyneuropathy - ICD9: 356.9, ICD10: G62.9 - no change. Will follow. 3. Fibromyalgia - ICD9: 729.1, ICD10: M79.7 - meds are helpful. 4. Primary insomnia - ICD9: 307.42, ICD10: F51.01 - stable. 5. Mixed hyperlipidemia - ICD9: 272.2, ICD10: E78.2 - was placed on tricor by gi. Followed by endo. 6. Primary hypertension - ICD9: 401.9, ICD10: I10 - Home blood pressure readings controlled - Continue current medications Bp check in one month 7. TERI (obstructive sleep apnea) - ICD9: 327.23, ICD10: G47.33 - benefiting from cpap. 8. Portal hypertensive gastropathy (HCC) (HCC) - ICD9: 572.3, 537.89, ICD10: K76.6, K31.89 -stable. Per gi. 9. Nonalcoholic steatohepatitis (KOTHARI) - ICD9: 571.8, ICD10: K75.81 -as above. 10. Uncontrolled type 2 diabetes mellitus with hyperglycemia (HCC) - ICD9: 250.02, ICD10: E11.65 - per endo. 11. Systemic lupus erythematosus, unspecified SLE type, unspecified organ involvement status (HCC) - ICD9: 710.0, ICD10: M32.9 - per rheum. 12. Mild episode of recurrent major depressive disorder (HCC) - ICD9: 296.31, ICD10: F33.0 -doing well. 13. Morbid obesity with BMI of 50.0-59.9, adult (HCC) - ICD9: 278.01, V85.43, ICD10: E66.01, Z68.43 - watch diet. 14. Vitamin D deficiency - ICD9: 268.9, ICD10: E55.9 - stable. 15. Encounter for screening examination for other mental health and behavioral disorders - ICD9: V79.8, ICD10: Z13.39 - ANXIETY SCREENING 16. Left sided sciatica - ICD9: 724.3, ICD10: M54.32 - ice and rest. Call if symptoms worsen at all or if not better in one to two weeks Red flags for re-assessment reviewed with patient in detail. - XR LUMBAR GENERAL 3V AP/LAT/L5-S1 Ron Duenas MD [facility] Tele[facility] encounter Note * Telephone Encounter - Brenda Bruno LPN - 05/10/2024 12:56 PM EDT Prescription Refill Information The patient has been identified by name and date of : Yes Caregiver verified no other encounters exist for this prescription request: Yes Caregiver confirmed with patient/requestor that no other refills are due, in the near future, with this provider at this time: Yes The last office visit in the department: 12/30/2023 Does the patient have a future office visit with this provider/department: Yes Requested Prescriptions Pending Prescriptions Disp Refills nefazodone (SERZONE) 200 mg tablet 90 tablet 1 Sig: Take 1 tablet by mouth once daily. Bredna Bruno LPN May 10, 2024 12:57 PM [facility]07-23-2024 Miscellaneous Notes* Telephone Encounter - Brenda Bruno LPN - 05/10/2024 12:56 PM EDT Prescription Refill Information The patient has been identified by name and date of : Yes Caregiver verified no other encounters exist for this prescription request: Yes Caregiver confirmed with patient/requestor that no other refills are due, in the near future, with this provider at this time: Yes The last office visit in the department: 12/30/2023 Does the patient have a future office visit with this provider/department: Yes Requested Prescriptions Pending Prescriptions Disp Refills nefazodone (SERZONE) 200 mg tablet 90 tablet 1 Sig: Take 1 tablet by mouth once daily. Brenda Bruno LPN May 10, 2024 12:57 PM documented in this encounterC[facility] Telephone encounter Note * Telephone Encounter - Ema Barton - 03/29/2024 11:59 AM EDT Requesting 100 day Rx's. Patient has been identified by name and date of : Yes Patient phones for refill(s): Requested Prescriptions Pending Prescriptions Disp Refills omeprazole (PRILOSEC) 40 mg capsule 90 capsule 1 Sig: Take 1 capsule by mouth every morning. fenofibrate nanocrystallized (TRICOR) 48 mg tablet Date of last office visit in primary care: 12/30/2023 Date of next office visit in primary care: 05/20/2024 Please advise. Thank you. Ema Barton. [facility]06-[facility] Miscellaneous Notes* Telephone Encounter - Ema Barton - 03/29/2024 11:59 AM EDT Requesting 100 day Rx's. Patient has been identified by name and date of : Yes Patient phones for refill(s): Requested Prescriptions Pending Prescriptions Disp Refills omeprazole (PRILOSEC) 40 mg capsule 90 capsule 1 Sig: Take 1 capsule by mouth every morning. fenofibrate nanocrystallized (TRICOR) 48 mg tablet Date of last office visit in primary care: 12/30/2023 Date of next office visit in primary care: 05/20/2024 Please advise. Thank you. Ema Barton. documented in this encounterC[facility]05-[facility] Instructions* Patient Instructions* Darrel Contreras - 02/22/2024 2:10 PM EDT Diabetes Foot Care Instructions When you have diabetes, proper foot care is very important. Poor foot care may lead to amputation of a foot or leg. As a person with diabetes, you are more vulnerable to foot problems, because diabetes can damage your nerves and reduce blood flow to your feet. Here are some diabetes foot care tips to follow: Wash and Dry Your Feet Daily Use mild soaps Use warm water Pat your skin dry; do not rub. Thoroughly dry your feet. After washing, use lotion on your feet to prevent cracking. Do not put lotion between your toes. Examine Your Feet Each Day Check the tops and bottoms of your feet. Have someone else look at your feet if you cannot see them. Check for dry, cracked skin. Look for blisters, cuts, scratches, or other sores. Check for redness, increased warmth, or tenderness when touching any area of your feet. Check for ingrown toenails, corns, and calluses. If you get a blister or sore from your shoes, do not pop it. Apply a bandage and wear a differentpair of shoes. Take Care of Your Toenails Cut toenails after bathing, when they are soft. Cut toenails straight across and smooth with a nail file. Avoid cutting into the corners of toes. Do not cut cuticles. If you have neuropathy (or decreased sensation in your feet) a green building materials designer should always cut your toenails. Be Careful When Exercising Walk and exercise in comfortable shoes. Do not exercise when you have open sores on your feet. Protect Your Feet With Shoes and Socks Never go barefoot. Always protect your feet by wearing shoes or hard-soled slippers or footwear. Avoid shoes with high heels and pointed toes. Avoid shoes that expose your toes or heels (such as open-toed shoes or sandals). These types of shoes increase your risk for injury and potential infections. Try on new footwear with the type of socks you usually wear. Do not wear new shoes for more than an hour at a time. Change your socks daily. Look and feel inside your shoes before putting them on to make sure there are no foreign objects orrough areas. Avoid tight socks. Wear natural-fiber socks (cotton, wool, or a cotton-wool blend). Wear special shoes if your health care provider recommends them. Wear shoes/boots that will protect your feet from various weather conditions (cold, moisture, etc.). Make sure your shoes fit properly. If you have neuropathy (nerve damage), you may not notice that your shoes are too tight. Perform the footwear test described below. Footwear Test Use this simple test to see if your shoes fit correctly: Stand on a piece of paper. (Make sure you are standing and not sitting, because your foot changes shape when you stand.) Trace the outline of your foot. Trace the outline of your shoe. Compare the tracings: Is the shoe too narrow? Is your foot crammed into the shoe? The shoe should be at least 1/2 inch longer than your longest toe and as wide as your foot. Proper Shoe Choices The following types of shoes are best for people with diabetes Closed toes and heels Leather uppers without a seam inside At least 1/2 inch extra space at the end of your longest toe Inside of shoe should be soft with no rough areas Outer sole should be made of stiff material Shoes should be at least as wide as your feet Tips for Foot Care in Diabetes Don't wait to treat a minor foot problem if you have diabetes. Follow your health care provider's guidelines and first aid guidelines. Report foot injuries and infections to your health care provider immediately. Check water temperature with your elbow, not your foot. Do not use a heating pad on your feet. Do not cross your legs. Do not self-treat your corns, calluses, or other foot problems. Go to your health care provider or green building materials designer to treat these conditions. documented in this encounterC[facility]05-[facility] History of Present illness Narrative* Darrel Contreras - 02/22/2024 2:04 PM EDT Subjective: This 68 year old female presents to clinic for diabetic foot check. Patient has the following complaints: some numbness in 2nd toe but nothing significant. Patient admits to being diabetic for 20 years now . Patient +B/T/N in feet at this time. Patient -pain in legs when walking. No other pedal complaints at this time. No change in medications or medical history since last visit. PAIN EVALUATION No data found in the last 1 encounters. Hemoglobin A1C Date Value 05/22/2023 7.0 % 06/11/2022 7.1 09/18/2021 7.2 % PCP: Ron Duenas MD PAST MEDICAL HISTORY Diagnosis Date Degenerative disc disease, lumbar Diabetes (HCC) Fibromyalgia GERD (gastroesophageal reflux disease) Hypercholesterolemia Insomnia Lupus (HCC) Osteoarthritis Current Outpatient Medications Medication Sig fenofibrate nanocrystallized (TRICOR) 48 mg tablet etodolac (LODINE) 400 mg tablet Take 1 tablet by mouth every 12 hours. PRN losartan (COZAAR) 100 mg tablet TAKE 1 TABLET BY MOUTH EVERY DAY vitamin E mixed 400 unit cap Take by mouth. nefazodone (SERZONE) 200 mg tablet Take 1 tablet by mouth once daily. omeprazole (PRILOSEC) 40 mg capsule Take 1 capsule by mouth every morning. metFORMIN (GLUCOPHAGE) 1,000 mg tablet Take 1,000 mg by mouth twice daily. sucralfate (CARAFATE) 1 gram tablet Take 1 tablet by mouth before meals and at bedtime. prn (Patient taking differently: Take 1 g by mouth three times a day. prn) dapagliflozin (FARXIGA) 10 mg tablet Take 10 mg by mouth once daily. blood sugar diagnostic (BLOOD GLUCOSE TEST) test strip Test blood sugar(s) bid times daily. Dx: Type 2 DM - Controlled E11.9 Insulin: No glimepiride (AMARYL) 1 mg tablet Taking 1.5 tablets a day Cholecalciferol, Vitamin D3, 25 mcg (1,000 unit) cap Take 1,000 Units by mouth once daily. baclofen (LIORESAL) 10 mg tablet hydrocortisone (ANUSOL-HC) 2.5 % rectal cream by RECTAL route two times a day. PRN Diclofenac Sodium (VOLTAREN) 1 % gel Apply 1 g to affected area twice daily. OMEGA-3 FATTY ACIDS/FISH OIL (OMEGA 3 FISH OIL ORAL) Take by mouth. MULTIVITAMIN TAB Take one(1) tablet daily. No current facility-administered medications for this visit. ALLERGIES Allergen Reactions Ciprofloxacin Other: See Comments Change in urine color Januvia [Sitaglipti* GI Upset Jardiance [Empaglif* Intolerance Macrodantin [Nitrof* Ozempic [Semaglutid* Unknown Pravastatin Myalgia Ultram [Tramadol Hc* Swelling Zanaflex [Tizanidin* Unknown Heart racing PAST SURGICAL HISTORY Procedure Laterality Date ADENOIDECTOMY PRIMARY <AGE 12 Adenoidectomy APPENDECTOMY CHOLECYSTECTOMY Cholecystectomy COLONOSCOPY 12/24/10 TVA COLONOSCOPY 02/22/13 no polyps COLONOSCOPY FLX DX W/COLLJ SPEC WHEN PFRMD 04/30/2016 Colonoscopy COLONOSCOPY FLX DX W/COLLJ SPEC WHEN PFRMD 07/11/2019 repeat in 5 years ESOPHAGOGASTRODUODENOSCOPY TRANSORAL DIAGNOSTIC 04/30/2016 EGD ESOPHAGOGASTRODUODENOSCOPY TRANSORAL DIAGNOSTIC 07/11/2019 EGD LIG/TRNSXJ FLP TUBE ABDL/VAG APPR UNI/BI Tubal ligation PAST SURGICAL HISTORY OF colon polypectomy PAST SURGICAL HISTORY OF hernia repair TONSILLECTOMY PRIMARY/SECONDARY <AGE 12 Tonsillectomy TOTAL ABDOMINAL HYSTERECT W/WO RMVL TUBE OVARY Hysterectomy, JESSICA supracervical FAMILY HISTORY Problem Relation Age of Onset Heart Mother Diabetes Mother COPD Mother other (lupus) Mother other (rheumatoid) Mother Heart Sister [place] at age 41 Diabetes Sister Aneurysm Sister Abdominal other (aortic stenosis) Sister other (spesis) Sister Social History Tobacco Use Smoking status: Never Passive exposure: Current Smokeless tobacco: Never Vaping Use Vaping Use: Never used Substance Use Topics Alcohol use: No Drug use: No REVIEW OF SYSTEMS GENERAL: Negative for Malaise, significant weight loss, fever RESPIRATORY: Negative for cough, wheezing and shortness of breath CARDIOVASCULAR: Negative for chest pain, leg swelling and palpitations GI: Negative for abdominal discomfort, blood in stools or black stools and change in bowel habits : Negative for dysuria, frequency and incontinence MUSCULOSKELETAL: Negative for joint pain or swelling, back pain, and muscle pain. SKIN: Negative for lesions, rash, and itching. HEMATOLOGY/LYMPHOLOGY Negative for prolonged bleeding, bruising easily, and swollen nodes. ENDOCRINE: Negative for cold or heat intolerance, polyuria, polydipsia and goiter. NEURO: negative The remainder of the review of systems is noncontributory. Objective: Patient presents to clinic ambulating in sneakers Constitutional: Pt is a well developed 68 year old female who is alert, oriented, cooperative and in no apparent distress. Eyes: Following during examination. No redness or drainage. Respiratory: RR normal and nonlabored. Even breathing. No evidence of distress. Psychology: Patient is engaged during conversation. Normal affect and mood. Does not appear depressed or anxious. Vasc: DP and PT pulses are palpable bilateral. CFT is less than 5 seconds bilateral. Skin temperature is warm to warm proximal to distal bilateral. There is no edema or varicosities noted. Hair growth present. Neuro: Protective sensation is intact to the foot and toes when tested with the 5.07 SWM bilateral.Vibratory sensation is decreased at the hallux bilateral. + Significant neurological defecits. Derm: Inspection and palpation performed. Nails 1-5 b/l are normal in length and thickness. Skin isof normal turgor and texture. Hyperkeratosis noted to b/l hallux. NO ulcerations, scars, verruca or other lesions noted. Ortho: Ankle joint DF is full with the knee extended and full with knee flexed. No pain or crepitusnoted. STJ, MTJ ROM are full and free of pain or crepitus. Muscle strength is 5/5 for dorsiflexors,plantarflexors, inverters, everters. Digital deformities include mild bunion of right foot. Subtle hammertoe is present to right 2nd toe. Assessment: (E11.42) Diabetic polyneuropathy associated with type 2 diabetes mellitus (HCC) (primary encounter diagnosis) (M20.11) Hallux valgus of right foot (M20.41) Hammer toe of right foot (L84) Callus of foot Plan: 1. Patient was seen and evaluated. 2. Patient was instructed on the continued importance of diabetic foot care along with proper diet and keeping their blood sugar under control to prevent complications. Discussed loss of vibratory sensation as cause of neuropathy. Stressed the importance of avoiding barefoot walking and wearing good shoes. Given her diabetes with neuropathy, historyof bunion and callus, will order diabetic shoes Instructions given both oral and written. 3. Discussed bunion of right foot. Recommend wider shoes. Will order diabetic shoes. Could considerbunion surgery if she were interested. For now, she will continue with wider shoes 4. Hammertoe. Very subtle. Will dispense gel padding to be worn between first and 2nd toe or hammertoe crest pad 5. Callus reduced to b/l hallux with dremmel 6. F/uin 1 year Darrel Contreras DPM * Isaura Antoine RN - 02/22/2024 1:52 PM EDT Patient presents with: Left Foot - Established Patient, Follow Up, Diabetic Foot Check Right Foot - Established Patient, Follow Up, Diabetic Foot Check Patient presents for 1 year follow up for diabetic foot care/exam. SAÚL 12/01/22. States that right 2nd toe has been having intermittent numbness for a few months. [facility] Evaluation + Plan note* Assessment & Plan Note - Genie Godinez MD - 02/16/2024 11:49 AM EDT Associated Problem(s): Systemic lupus erythematosus (Multi) On prn NSAID. Using med rarely and will need to monitor in light of KOTHARI. Labs ordered today to monitor for increased disease activity, end organ manifestations and to monitor for any drug toxicitiesdue to chronic medications [facility] Work Phone: [phone]) 560-272604-30-2024 Miscellaneous Notes* Assessment & Plan Note - Genie Godinez MD - 02/16/2024 11:49 AM EDTAssociated Problem(s): Systemic lupus erythematosus (Multi) On prn NSAID. Using med rarely and will need to monitor in light of KOTHARI. Labs ordered today to monitor for increased disease activity, end organ manifestations and to monitor for any drug toxicitiesdue to chronic medications * Assessment & Plan Note - Genie Godinez MD - 02/16/2024 11:45 AM EDT Associated Problem(s): Diabetes mellitus (Multi) Reports stable. Reviewed chart Most recent A1c in 7 range. Continue to see endocrinology * Assessment & Plan Note - Genie Godinez MD - 02/16/2024 11:44 AM EDT Associated Problem(s): Class 3 severe obesity due to excess calories with serious comorbidity and body mass index (BMI) of 45.0 to 49.9 in adult (Multi) Slowly losing weight Encouraged [facility]: [phone]) 971-914404-30-2024 Evaluation + Plan note* Assessment & Plan Note - Genie Godinez MD - 02/16/2024 11:45 AM EDTAssociated Problem(s): Diabetes mellitus (Multi) Reports stable. Reviewed chart Most recent A1c in 7 range. Continue to see endocrinology [facility] Work Phone: [phone] 313-263504-30-2024 Evaluation + Plan note* Assessment & Plan Note - Genie Godinez MD - 02/16/2024 11:44 AM EDTAssociated Problem(s): Class 3 severe obesity due to excess calories with serious comorbidity and lennox dy mass index (BMI) of 45.0 to 49.9 in adult (Multi) Slowly losing weight Encouraged [facility] Work Phone: [phone] 305-894004-30-2024 History of Present illness Narrative* Genie Godinez MD - 02/16/2024 11:00 AM EDT RHEUMATOLOGY PROGRESS NOTE Vilma Dial 68 y.o. female Chief Complaint Patient presents with Follow-up Lupus Osteoarthritis Fibromyalgia SUBJECTIVE Re: lupus Pt reports symptoms are stable. No new areas of pain and no worsening rashes. Pt reports arthritis is active--knees and shoulders. Working on losing weight to help her joints. No worsening of symptoms since stopping plaquenil Tends to note more symptoms when seasons change. Doing ok now Records since [facility] Record--Reviewed chart--pt with KOTHARI and seeing GI. Patient Active Problem List Diagnosis Date Noted Nonalcoholic steatohepatitis (KOTHARI) 11/20/2023 Degenerative disc disease, lumbar 08/18/2023 Diabetes mellitus (Multi) 08/18/2023 Fibromyalgia 08/18/2023 Hyperlipidemia 08/18/2023 Hypertension 08/18/2023 Primary insomnia 08/18/2023 Primary osteoarthritis of both knees 08/18/2023 Systemic lupus erythematosus (Multi) 08/18/2023 Vitamin D deficiency 08/18/2023 NSAID long-term use 08/18/2023 Class 3 severe obesity due to excess calories with serious comorbidity and body mass index (BMI) of45.0 to 49.9 in adult (Multi) 08/18/2023 Portal hypertension (Multi) 05/19/2023 Past Medical History: Diagnosis Date Anxiety disorder, unspecified Anxiety Does not use caffeine Encounter for monitoring of hydroxychloroquine therapy 08/18/2023 Fatty liver 11/19/2022 IBS (irritable bowel syndrome) History of irritable bowel syndrome Personal history of colonic polyps History of colonic polyps Portal hypertensive gastropathy (Multi) 05/19/2023 Post-traumatic stress disorder, unspecified PTSD (post-traumatic stress disorder) Current Outpatient Medications Medication Instructions baclofen (Lioresal) 10 mg tablet 1 tablet, oral, 3 times daily PRN dapagliflozin propanediol (Farxiga) 10 mg 1 tablet, oral, Daily before breakfast diclofenac sodium 1 % kit APPLY FOUR TIMES EVERY DAY TO THE AFFECTED AREA(S) DIRECTED dicyclomine (BENTYL) 10 mg, oral, 2 times daily ergocalciferol, vitamin D2, 50 mcg (2,000 unit) tablet 2 tablets, oral, Daily etodolac (Lodine) 400 mg tablet 1 tablet, oral, 2 times daily PRN fenofibrate (TRICOR) 48 mg, oral, Daily glimepiride (Amaryl) 2 mg tablet oral losartan (Cozaar) 50 mg tablet oral metFORMIN (GLUCOPHAGE) 1,000 mg, oral, 2 times daily with meals multivitamin with minerals iron-free (Centrum Silver) 1 tablet, oral, Daily nefazodone (Serzone) 200 mg tablet 1 tablet, oral, Daily omega 4-mvz-aoe-fish oil 1,200 (144-216) mg capsule 1 capsule, oral, Daily omeprazole (PRILOSEC) 40 mg, oral, Daily before breakfast, Do not crush or chew. [employer] test strips strip USE TO CHECK BLOOD SUGAR TWICE A DAY sucralfate (Carafate) 1 gram tablet oral vitamin E acetate (VITAMIN E ORAL) 1 tablet, oral, Daily Allergies Allergen Reactions Ciprofloxacin Other Change in urine color Turned urine red Nitrofurantoin Macrocrystal Other Pravastatin Myalgia Semaglutide Unknown Sitagliptin GI Upset Tramadol Other and Swelling Empagliflozin Palpitations Tizanidine Other, Anxiety, Palpitations and Unknown Heart racing Anxiety went thru the roof and had palpitations. Review of Systems Constitutional: Negative for fatigue and fever. Respiratory: Negative for cough and shortness of breath. Cardiovascular: Negative for leg swelling. Musculoskeletal: Positive for arthralgias, gait problem and joint swelling. Negative for back pain and myalgias. Skin: Negative for color change and rash. Neurological: Negative for weakness and numbness. PHYSICAL EXAM BP 177/77 Pulse 62 Temp 36.1 C (97 F) (Temporal) Ht 1.651 m (5' 5) Wt 136 kg (298 lb 12.8 oz) SpO2 93% BMI 49.72 kg/m Physical Exam Vitals reviewed. Constitutional: General: She is not in acute distress. Appearance: Normal appearance. HENT: Head: Normocephalic and atraumatic. Eyes: General: No scleral icterus. Extraocular Movements: Extraocular movements intact. Conjunctiva/sclera: Conjunctivae normal. Pupils: Pupils are equal, round, and reactive to light. Pulmonary: Effort: Pulmonary effort is normal. No respiratory distress. Musculoskeletal: General: Tenderness (knees with medial joint tenderness) and deformity (OA changes in hands) present. No swelling. Cervical back: Normal range of motion and neck supple. No tenderness. Right lower leg: No edema. Left lower leg: No edema. Comments: No synovitis of examined joints Skin: Coloration: Skin is not pale. Findings: No erythema or rash. Neurological: General: No focal deficit present. Mental Status: She is alert and oriented to person, place, and time. Mental status is at baseline. Gait: Gait normal. Psychiatric: Mood and Affect: Mood normal. Assessment/plan Problem List Items Addressed This Visit Diabetes mellitus (Multi) Current Assessment & Plan Reports stable. Reviewed chart Most recent A1c in 7 range. Continue to see endocrinology Fibromyalgia Systemic lupus erythematosus (Multi) - Primary Overview Previous plaquenil (held 2022) Current Assessment & Plan On prn NSAID. Using med rarely and will need to monitor in light of KOTHARI. Labs ordered today to monitor for increased disease activity, end organ manifestations and to monitor for any drug toxicitiesdue to chronic medications Relevant Orders Anti-DNA Antibody, Double-Stranded C3 Complement C4 Complement CBC and Auto Differential Comprehensive Metabolic Panel C-Reactive Protein Sedimentation Rate NSAID long-term use Class 3 severe obesity due to excess calories with serious comorbidity and body mass index (BMI) of45.0 to 49.9 in adult (Multi) Current Assessment & Plan Slowly losing weight Encouraged Nonalcoholic steatohepatitis (KOTHARI) Overview >>OVERVIEW FOR LIVER FIBROSIS WRITTEN ON 02/16/2024 11:20 AM BY GENIE GODINEZ MD [id number] Follow up: ___6__months documented in [facility]: [phone] Instructions* Patient Instructions* Genie Godinez MD - 02/16/2024 11:00 AM EDT It was a pleasure to see you today Please call if your symptoms worsen Please review your summary for education and reminders. Follow up at your next appointment. If you had labs/xrays done today, you will be able to view on [facility]. We will contact you when theresults are reviewed for further discussion. Please note that you may receive your results before suraj had a chance to review. Please know I will be contacting you for discussion Homegoing instructions for all patient A healthy lifestyle helps chronic diseases These are all the goals you should strive to improve your overall health Blood pressure <130/85 BMI of <30 or waist circumference that is 1/2 of your height Fasting blood sugar <107 (if you are diabetic, aim for an A1c <6.4%_ LDL cholesterol <130 Avoid smoking Manage your stress Get your preventive exams Get your immunizations Current weight: 136 kg (298 lb 12.8 oz) Weight change since last visit (-) denotes wt loss -17 lbs Weight loss needed to achieve BMI 25: 148.9 Lbs Weight loss needed to achieve BMI 30: 118.9 Lbs documented in this [facility] Work Phone: [phone]) [phone] History of Present illness Narrative* Mel Obando APRN.APPEALS BOARD REFEREE - 12/30/2023 11:04 AM EDT Vilma Dial is a 68 year old female here for a Medicare wellness visit. Medicare Health Risk Assessment General Health Fair Exercise: Minutes/Day I don't get enough of that d/t OA of the knees Exercise: Days/Week N/A Alcohol: Daily Use denies Alcohol: Drinks/Day denies Alcohol: 6 or more drinks denies Feel off balance Sometimes d/t OA. Concerns: Teeth/Dentures denies Concerns: Sexual function Not for pt; spouse has ED Troubled by feelings no Frequency: Eating healthy diet I'm trying to do better to keep sugars down. ADLs requiring help Denies. Uses a shower chair. Safety precautions in home/vehicle Shower chair, seatbelt, + smoke detectors, no rugs, has handrails. Smoke, vape, chews tobacco denies Difficulty hearing Maybe starting -- tells spouse to turn TV up. Difficulty seeing Denies -- just had eyes check. Current Providers Specialists: I have reviewed specialist-related care of the patient in the medical record. Eye doctor Stock Mixer -- lupus Clinical Dietitian - stomach and fatty liver Retail Sales Assistant - DM Medical/Family history review Reviewed and updated problem list, medical/surgical/family/social history, medications, and allergies. Opioid use review Opioid Medications (last 90 days) No data to display Depression screening Depression Screening PHQ-2 Score 11/19/2022 0 Depression screening tool completed and reviewed. Based on score and interview, patient is not at risk for depression. Screening tool discussed with patient, and I recommended no further interventionat this time. Cognitive screening Mini Cog Score: 5 Cognitive screening reviewed and no further action needed (score 3-5) Functional Observation Was the patient's Timed Up & Go test unsteady or ? 12 seconds? No Advance Care Planning Patient did not wish or was not able to name a surrogate decision maker or provide an advance care plan Measurements BP 172/77[JERE BP[ Pulse 68 Resp 16 Ht 5' 5.157 (1.66m) Wt 302 lb (137.0kg) SpO2 92% LMP 11/09/2005 BMI 50.01 kg/(m^2). Home BPs -- 130's-140's. Additional screenings: No results found. Assessment/Plan Medicare annual wellness visit, subsequent (Z00.00) - Counseled on healthy diet and regular exercise - Fall avoidance information provided - Personalized prevention plan provided [facility] Instructions* Patient Instructions* Mel Obando APRN.CNP - 12/30/2023 11:04 AM EDT Screening schedule The following prevention plan is recommended: BP Controlled (<130/80) Never done Advance Directive Discussion due on 10/19/2023 Diabetic Foot Exam due on 11/19/2023 WHAT YOU CAN DO TO PREVENT FALLS Many falls can be prevented. By making some changes, you can lower your chances of falling. Four things YOU can do to prevent falls for you* and your caregiver 1. Begin a regular exercise program Exercise is one of the most important ways to lower your chances of falling. It makes you stronger and helps you feel better. Exercises that improve balance and coordination (like Franco Chi) are the most helpful. Lack of exercise leads to weakness and increases your chances of falling. Ask your doctor or health care provider about the best type of exercise program for you. 2. Have your health care provider review your medicines Have your doctor or pharmacist review all the medicines you take, even fozc-nwf-rrims[place] medicines. As you get older, the way medicines work in your body can change. Some medicines, or combinations of medicines, can make you sleepy or dizzy andcan cause you to fall. 3. Have your vision checked Have your eyes checked by an eye doctor at least once a year. You may be wearing the wrong glasses or have a condition like glaucoma or cataracts that limits your vision. Poor vision can increase your chances of falling. 4. Make your home safer About half of all falls happen at home. To make your home safer: Remove things you can trip over (like papers, books, clothes, and shoes) from stairs and places where you walk. Remove small throw rugs or use double-sided tape to keep the rugs from slipping. Keep items you use often in cabinets you can reach easily without using a step stool. Have grab bars put in next to your toilet and in the tub or shower. Use non-slip mats in the bathtub and on shower floors. Improve the lighting in your home. As you get older, you need brighter lights to see well. Hang light-weight curtains or shades to reduce glare. Have handrails and lights put in on all staircases. Wear shoes both inside and outside the house. Avoid going barefoot or wearing slippers. For more information, contact: Centers for Disease Control and Prevention www.cdc.gov/injury * This information may not apply if you have certain medical conditions. [facility] History of Present illness Narrative* Debby Morataya MA - 12/10/2023 8:34 AM EST POPULATION HEALTH NAVIGATION OUTREACH Action/I Spoke with Vilma. Scheduled wellness exam ANNUAL MEDICARE WELLNESS EXAM BP Controlled (<130/80) Never done Advance Directive Discussion due on 10/19/2023 HbA1C due on 11/22/2023 was completed at outside [facility]. No record in Care Everywhere Patient Identified by Name and : YES, via phone Outreach Outcome/Action Spoke to patient / parent / legal guardian: Patient scheduled Did you use a PCP flex slot to schedule this appointment? N/A Reason for Outreach Care Gap or Scheduling/Wellness visits Payer: Payor: [facility] MEDICARE / Plan: [facility] DUAL COMPLETE HMO POS SNP / Product Type: Medicare / Care Gap Reviewed:: Annual Wellness visit Controlling Blood Pressure HBA1C Reminder: Reminder note to check Health Maintenance for items below Health Maintenance items due: BP Controlled (<130/80) Never done Advance Directive Discussion due on 10/19/2023 HbA1C due on 11/22/2023 Diabetic Foot Exam due on 11/19/2023 Dilated Retinal Exam due on 11/20/2023 Navigation Signature: Debby Morataya MA December 10, 2023 8:34 AM documented in [facility] History of Present illness Narrative* Ron Duenas MD - 11/20/2023 2:04 PM EST Patient presents with: 6 Month Exam HPI: Patient presents today for office visit for follow up. HTN: Monitors BP at home Readings have been stable. Brought list of her readings with her. Have been good at home. Denies chest pain and shortness of breath Denies headaches and dizziness Denies palpitations and syncope Some edema to B/L ankles and calves. Chronic. DM: Follows with Dr. Chino. Sees her this month Checking sugars BID A1c 6mos ago 7.0 No vision changes. Up to date on eye exam. Denies foot lesions, numbness or pain. Follows with Gastro. Scheduled for liver US. Hx fatty liver. Sees Dr Bowers for her liver Has lupus as well and sees rheum regularly. Still taking serzone. Her fibro is stable. Helps with anxiety. Had eyes checked regularly. Had some vision issues and stopped the placquenil. MEDICATIONS: Current Outpatient Medications Medication Sig etodolac (LODINE) 400 mg tablet Take 1 tablet by mouth every 12 hours. losartan (COZAAR) 100 mg tablet TAKE 1 TABLET BY MOUTH EVERY DAY vitamin E mixed 400 unit cap Take by mouth. nefazodone (SERZONE) 200 mg tablet Take 1 tablet by mouth once daily. omeprazole (PRILOSEC) 40 mg capsule Take 1 capsule by mouth every morning. metFORMIN (GLUCOPHAGE) 1,000 mg tablet Take 1,000 mg by mouth twice daily. sucralfate (CARAFATE) 1 gram tablet Take 1 tablet by mouth before meals and at bedtime. prn (Patient taking differently: Take 1 g by mouth three times a day. prn) dapagliflozin (FARXIGA) 10 mg tablet Take 10 mg by mouth once daily. blood sugar diagnostic (BLOOD GLUCOSE TEST) test strip Test blood sugar(s) bid times daily. Dx: Type 2 DM - Controlled E11.9 Insulin: No glimepiride (AMARYL) 1 mg tablet Taking 1.5 tablets a day Cholecalciferol, Vitamin D3, 25 mcg (1,000 unit) cap Take 1,000 Units by mouth once daily. baclofen (LIORESAL) 10 mg tablet hydrocortisone (ANUSOL-HC) 2.5 % rectal cream by RECTAL route twice daily. Diclofenac Sodium (VOLTAREN) 1 % gel Apply 1 g to affected area twice daily. OMEGA-3 FATTY ACIDS/FISH OIL (OMEGA 3 FISH OIL ORAL) Take by mouth. MULTIVITAMIN TAB Take one(1) tablet daily. No current facility-administered medications for this visit. ALLERGIES: ALLERGIES Allergen Reactions Ciprofloxacin Other: See Comments Change in urine color Januvia [Sitaglipti* GI Upset Jardiance [Empaglif* Intolerance Macrodantin [Nitrof* Ozempic [Semaglutid* Unknown Pravastatin Myalgia Ultram [Tramadol Hc* Swelling Zanaflex [Tizanidin* Unknown Heart racing PAST MEDICAL HISTORY Diagnosis Date Degenerative disc disease, lumbar Diabetes (HCC) Fibromyalgia GERD (gastroesophageal reflux disease) Hypercholesterolemia Insomnia Lupus (HCC) Osteoarthritis PAST SURGICAL HISTORY Procedure Laterality Date ADENOIDECTOMY PRIMARY <AGE 12 Adenoidectomy APPENDECTOMY CHOLECYSTECTOMY Cholecystectomy COLONOSCOPY 12/24/10 TVA COLONOSCOPY 02/22/13 no polyps COLONOSCOPY FLX DX W/COLLJ SPEC WHEN PFRMD 04/30/2016 Colonoscopy COLONOSCOPY FLX DX W/COLLJ SPEC WHEN PFRMD 07/11/2019 repeat in 5 years ESOPHAGOGASTRODUODENOSCOPY TRANSORAL DIAGNOSTIC 04/30/2016 EGD ESOPHAGOGASTRODUODENOSCOPY TRANSORAL DIAGNOSTIC 07/11/2019 EGD LIG/TRNSXJ FLP TUBE ABDL/VAG APPR UNI/BI Tubal ligation PAST SURGICAL HISTORY OF colon polypectomy PAST SURGICAL HISTORY OF hernia repair TONSILLECTOMY PRIMARY/SECONDARY <AGE 12 Tonsillectomy TOTAL ABDOMINAL HYSTERECT W/WO RMVL TUBE OVARY Hysterectomy, JESSICA supracervical FAMILY HISTORY Problem Relation Age of Onset Heart Mother Diabetes Mother COPD Mother other (lupus) Mother other (rheumatoid) Mother Heart Sister [place] at age 41 Diabetes Sister Aneurysm Sister Abdominal other (aortic stenosis) Sister other (spesis) Sister Social History Tobacco Use Smoking status: Never Passive exposure: Current Smokeless tobacco: Never Vaping Use Vaping Use: Never used Substance Use Topics Alcohol use: No Drug use: No Reviewed current medications, allergies, past medical history, surgical history, family history andsocial history today. REVIEW OF SYSTEMS All other reviewed and negative other than HPI. HEALTH MAINTENANCE: Reviewed health maintenance issues today and recommended the following in detail. BP Controlled (<130/80) Never done RSV Vaccine(1 - 1-dose 60+ series) Never done Influenza Vaccine(1) due on 06/19/2023 Covid-19 Vaccine(2022- season) due on 06/19/2023 Advance Directive Discussion due on 10/19/2023 Diabetic Foot Exam -sees Dr Contreras sees him soon Dilated Retinal Exam -sees them again in December. VITALS: BP 132/82 Pulse 76 Ht 161.3 cm (5' 3.5) Wt (!) 139.7 kg (308 lb) LMP 11/09/2005 SpO2 96% BMI 53.70 kg/m Last 4 Encounter Wt Readings: Date: Wt: 09/24/2023 142 kg (313 lb) 09/17/2023 142 kg (313 lb) 08/17/2023 140.6 kg (310 lb) 05/19/2023 140.5 kg (309 lb 12.8 oz) PHYSICAL EXAMINATION: General appearance: Well appearing, alert, in no acute distress, well-hydrated, well nourished. Skin: Skin color, texture, turgor normal, no suspicious rashes or lesions Head: Normocephalic, no masses, lesions, tenderness or abnormalities Lungs: Lungs clear to auscultation. No wheezing, rhonchi, rales Heart: RRR without murmur, gallop, or rubs. No ectopy Abdomen: Normal abdominal exam, Abdomen soft, non-tender. Bowel sounds normal. No masses, organomegaly Extremities: No deformities, edema, skin discoloration, clubbing or cyanosis. Good capillary refill. Musculoskeletal: No joint swelling, deformity, or tenderness ASSESSMENT/PLAN: 1. Type 2 diabetes mellitus with diabetic polyneuropathy, without long-term current use of insulin (HCC) - ICD9: 250.60, 357.2, ICD10: E11.42 (primary diagnosis) - per Dr Chino. 2. Polyneuropathy - ICD9: 356.9, ICD10: G62.9 - stable. 3. Fibromyalgia - ICD9: 729.1, ICD10: M79.7 - stable. 4. Primary hypertension - ICD9: 401.9, ICD10: I10 - Controlled - Continue current medications 5. Mixed hyperlipidemia - ICD9: 272.2, ICD10: E78.2 - Controlled - Continue current medications 6. TERI (obstructive sleep apnea) - ICD9: 327.23, ICD10: G47.33 - benefiting from its use. 7. Portal hypertensive gastropathy (HCC) (HCC) - ICD9: 572.3, 537.89, ICD10: K76.6, K31.89 - per gi 8. Nonalcoholic steatohepatitis (KOTHARI) - ICD9: 571.8, ICD10: K75.81 - per gi 9. Systemic lupus erythematosus, unspecified SLE type, unspecified organ involvement status (HCC) -ICD9: 710.0, ICD10: M32.9 - per rheum 10. Mild episode of recurrent major depressive disorder (HCC) - ICD9: 296.31, ICD10: F33.0 - stable. 11. Morbid obesity with BMI of 50.0-59.9, adult (HCC) - ICD9: 278.01, V85.43, ICD10: E66.01, Z68.43 - discussed weight loss 12. Vitamin D deficiency - ICD9: 268.9, ICD10: E55.9 --stable. 13. Need for influenza vaccination - ICD9: V04.81, ICD10: Z23 - INFLUENZA VACCINE, PRSV FREE, AGE 65+ YR, HIGH DOSE, QUADRIVALENT (FLUZONE HIGH-DOSE) Ron Duenas MD [facility] History of Past illness Narrative* Problem Noted Date Diagnosed Date Resolved Date Chest pain 11/20/2023 11/20/2023 11/20/2023 Rectal hemorrhage 11/20/2023 11/20/2023 11/20/2023 Class 3 severe obesity due t o excess calories with serious comorbidity and body mass index (BMI) of 50.0 to 59.9 in adult 08/18/2023 11/20/2023 Overview: Last Assessment & Plan: Optimize weight to help chronic diseases Fatty liver 11/19/2022 11/20/2023 Left lower quadrant abdominal pain 11/07/2022202311/20/2023 documented as of this encounter (statuses as of 11/20/2023) [facility] History of Past illness Narrative* Problem Noted Date Diagnosed Date Resolved Date Chest pain 11/20/2023 11/20/2023 11/20/2023 Rectal hemorrhage 11/20/2023 11/20/2023 11/20/2023 Class 3 severe obesity due t o excess calories with serious comorbidity and body mass index (BMI) of 50.0 to 59.9 in adult 08/18/2023 11/20/2023 Overview: Last Assessment & Plan: Optimize weight to help chronic diseases Fatty liver 11/19/2022 11/20/2023 Left lower quadrant abdominal pain 11/07/2022202311/20/2023 documented as of this encounter (statuses as of 12/10/2023) [facility] History of Past illness Narrative* Problem Noted Date Diagnosed Date Resolved Date Chest pain 11/20/2023 11/20/2023 11/20/2023 Rectal hemorrhage 11/20/2023 11/20/2023 11/20/2023 Class 3 severe obesity due t o excess calories with serious comorbidity and body mass index (BMI) of 50.0 to 59.9 in adult 08/18/2023 11/20/2023 Overview: Last Assessment & Plan: Optimize weight to help chronic diseases Fatty liver 11/19/2022 11/20/2023 Left lower quadrant abdominal pain 11/07/2022202311/20/2023 documented as of this encounter (statuses as of 12/31/2023) [facility] History of Present illness Narrative* Gayle Tompkins, PAOLA - 09/24/2023 9:16 AM EST This note was created using NoteWriter. Subjective Vilma Dial is a 67 year old female. HPI 67 year old female presents for cough, congestion since 08/31/23. Patient states she started having nasal congestion and cough for the past 3 weeks. She states that her cough just is not getting any better. She states she does cough up some phlegm. No chest pain or shortness of breath. No wheezing. She does state that she occasionally has some pain in the right side of her back with coughing.She states she did have a fever when the illness initially started on 08/31, but has not had feversfor the past 2 weeks. She continues with nasal congestion, sinus pressure and headache. No history of COPD or asthma. She does have lupus, is not on any immunosuppressants. PAST MEDICAL HISTORY Diagnosis Date Degenerative disc disease, lumbar Diabetes (HCC) Fibromyalgia GERD (gastroesophageal reflux disease) Hypercholesterolemia Insomnia Lupus (HCC) Osteoarthritis PAST SURGICAL HISTORY Procedure Laterality Date ADENOIDECTOMY PRIMARY <AGE 12 Adenoidectomy APPENDECTOMY CHOLECYSTECTOMY Cholecystectomy COLONOSCOPY 12/24/10 TVA COLONOSCOPY 02/22/13 no polyps COLONOSCOPY FLX DX W/COLLJ SPEC WHEN PFRMD 04/30/2016 Colonoscopy COLONOSCOPY FLX DX W/COLLJ SPEC WHEN PFRMD 07/11/2019 repeat in 5 years ESOPHAGOGASTRODUODENOSCOPY TRANSORAL DIAGNOSTIC 04/30/2016 EGD ESOPHAGOGASTRODUODENOSCOPY TRANSORAL DIAGNOSTIC 07/11/2019 EGD LIG/TRNSXJ FLP TUBE ABDL/VAG APPR UNI/BI Tubal ligation PAST SURGICAL HISTORY OF colon polypectomy PAST SURGICAL HISTORY OF hernia repair TONSILLECTOMY PRIMARY/SECONDARY <AGE 12 Tonsillectomy TOTAL ABDOMINAL HYSTERECT W/WO RMVL TUBE OVARY Hysterectomy, JESSICA supracervical ALLERGIES Ciprofloxacin, Januvia [Sitagliptin], Jardiance [Empagliflozin], Macrodantin [Nitrofurantoin], Ozempic [Semaglutide], Pravastatin, Ultram [Tramadol Hcl], and Zanaflex [Tizanidine] MEDICATIONS losartan (COZAAR) 100 mg tablet Take 1 tablet by mouth once daily. vitamin E mixed 400 unit cap Take by mouth. nefazodone (SERZONE) 200 mg tablet Take 1 tablet by mouth once daily. omeprazole (PRILOSEC) 40 mg capsule Take 1 capsule by mouth every morning. metFORMIN (GLUCOPHAGE) 1,000 mg tablet Take 1,000 mg by mouth twice daily. sucralfate (CARAFATE) 1 gram tablet Take 1 tablet by mouth before meals and at bedtime. prn (Patient taking differently: Take 1 g by mouth three times a day. prn) dapagliflozin (FARXIGA) 10 mg tablet Take 10 mg by mouth once daily. blood sugar diagnostic (BLOOD GLUCOSE TEST) test strip Test blood sugar(s) bid times daily. Dx: Type 2 DM - Controlled E11.9 Insulin: No glimepiride (AMARYL) 1 mg tablet Taking 1.5 tablets a day Cholecalciferol, Vitamin D3, 25 mcg (1,000 unit) cap Take 1,000 Units by mouth once daily. baclofen (LIORESAL) 10 mg tablet hydrocortisone (ANUSOL-HC) 2.5 % rectal cream by RECTAL route twice daily. Diclofenac Sodium (VOLTAREN) 1 % gel Apply 1 g to affected area twice daily. OMEGA-3 FATTY ACIDS/FISH OIL (OMEGA 3 FISH OIL ORAL) Take by mouth. MULTIVITAMIN TAB Take one(1) tablet daily. hydrOXYchloroQUINE (PLAQUENIL) 200 mg tablet Take by mouth twice daily. (Patient not taking: Reported on 09/17/2023) FAMILY HISTORY Problem Relation Age of Onset Heart Mother Diabetes Mother COPD Mother other (lupus) Mother other (rheumatoid) Mother Heart Sister [place] at age 41 Diabetes Sister Aneurysm Sister Abdominal other (aortic stenosis) Sister other (spesis) Sister Social History Tobacco Use Smoking status: Never Passive exposure: Current Smokeless tobacco: Never Vaping Use Vaping Use: Never used Substance Use Topics Alcohol use: No Drug use: No Review of Systems Constitutional: Negative for chills and fever. HENT: Positive for congestion, sinus pressure and sinus pain. Negative for ear pain and sore throat. Respiratory: Positive for cough. Negative for shortness of breath. Cardiovascular: Negative for chest pain. Gastrointestinal: Negative for diarrhea and vomiting. Objective BP 144/82 Pulse 73 Temp 36.3 C (97.4 F) (Tympanic) Resp 18 Wt (!) 142 kg (313 lb) LMP 11/09/2005 SpO2 95% BMI 54.58 kg/m Physical Exam Vitals and nursing note reviewed. Constitutional: General: She is not in acute distress. Appearance: Normal appearance. She is not toxic-appearing. HENT: Right Ear: Tympanic membrane and ear canal normal. Left Ear: Tympanic membrane and ear canal normal. Nose: Congestion present. Right Sinus: Maxillary sinus tenderness present. Left Sinus: Maxillary sinus tenderness present. Mouth/Throat: Mouth: Mucous membranes are moist. Pharynx: No oropharyngeal exudate or posterior oropharyngeal erythema. Eyes: Conjunctiva/sclera: Conjunctivae normal. Cardiovascular: Rate and Rhythm: Normal rate and regular rhythm. Pulmonary: Effort: Pulmonary effort is normal. Breath sounds: Normal breath sounds. Neurological: Mental Status: She is alert. Assessment and Plan ASSESSMENT/PLAN: 1. Acute cough - ICD9: 786.2, ICD10: R05.1 (primary diagnosis) - XR CHEST 2V FRONTAL/LAT - CXR reveals no acute abnormality. 2. URI, acute - ICD9: 465.9, ICD10: J06.9 - Discussed viral etiology and rationale for treatment. - Symptomatic treatment with prn analgesia - Supportive care with fluids and rest - XR CHEST 2V FRONTAL/LAT 3. Sinobronchitis - ICD9: 473.9, 490, ICD10: J32.9, J40 -Chest x-ray normal. Symptoms x 3 weeks. Will start antibiotic. -Rx for Tessalon Perles. -Hold off on steroids at this time as patient is diabetic, no wheezing. She also is on medication that interacts with the prednisone. - Will begin treatment with Doxycycline - Supportive care with plenty of fluids, rest, and analgesia prn. Diagnosis and treatment plan were discussed and questions were answered to the patient's satisfaction. Pt acknowledged understanding of concepts and follow up plan. Specific signs and symptoms that would indicate the need for higher level of care were discussed in detail warranting prompt ER evaluation. PAOLA Fernandez documented in [facility] encounter[facility] History of Present illness Narrative* Tristan Day RT(R) - 09/24/2023 9:10 AM EST Radiology Service Progress Note PATIENT NAME: Vilma Dial DATE OF SERVICE: September 24, 2023 TIME: 9:27 AM PATIENT IDENTITY VERIFICATION COMPLETED USING TWO (2) IDENTIFIERS: Name and Date of confirmedby patient verbally. FALL SCREENING: Has the patient had 2 falls in the last year or 1 fall with injury or currently using an Ambulatory Assistive Device (Walker, Cane, Wheelchair, Crutches, etc.)? No PATIENT GENDER DATA: Female. status: : No status: NO. PATIENT RELEVANT IMPLANT DATA REVIEWED: Yes RADIOLOGY DEPARTMENT: General X-ray: Exam(s) Completed: Chest X-Ray PERIPHERAL IV DATA: Not applicable SIGNED BY: RT Farooq(R) September 24, 2023 9:27 AM documented in this encounterC[facility]30-[facility] History of Present illness Narrative* Rita Felix PA-Melva - 09/17/2023 3:00 PM EST 67 year old female with c/o leg cramps, BP concerns. HTN: Current meds: HCTZ 25MG DAILY taking 1/2 tabs currently Losartan 50mg daily ?asa 8MG DAILY Patient is compliant with meds Yes Monitors bp at home: No. If yes, readings: Denies side effects: Yes. Chest pain: No. Dyspnea: No. Edema: No. Palpitations: No. Syncope: No. Headache: No. Dizziness: No. Last 3 Encounter BP Readings: Date: BP: 08/17/2023 170/80 05/19/2023 126/78 12/17/2022 138/80 Last 2 Encounter Wt Readings: Date: Wt: 08/17/2023 140.6 kg (310 lb) 05/19/2023 140.5 kg (309 lb 12.8 oz) 4 wk ago WBC 4.4 - 11.3 x10*3/uL 6.9 nRBC 0.0 - 0.0 /100 WBCs 0.0 RBC 4.00 - 5.20 x10*6/uL 4.96 Hemoglobin 12.0 - 16.0 g/dL 14.7 Hematocrit 36.0 - 46.0 % 46.3 High MCV 80 - 100 fL 93 MCH 26.0 - 34.0 pg 29.6 MCHC 32.0 - 36.0 g/dL 31.7 Low RDW 11.5 - 14.5 % 14.3 Platelets 150 - 450 x10*3/uL 253 Neutrophils % 40.0 - 80.0 % 61.9 Immature Granulocytes %, Automated 0.0 - 0.9 % 0.7 Ref Range & Units 4 wk ago Glucose 74 - 99 mg/dL 267 High Sodium 136 - 145 mmol/L 140 Potassium 3.5 - 5.3 mmol/L 3.9 Chloride 98 - 107 mmol/L 102 Bicarbonate 21 - 32 mmol/L 23 Anion Gap 10 - 20 mmol/L 19 Urea Nitrogen 6 - 23 mg/dL 18 Creatinine 0.50 - 1.05 mg/dL 0.74 eGFR >60 mL/min/1.73m*2 89 Comment: Calculations of estimated GFR are performed using the 2020 CKD-EPI Study Refit equation without the race variable for the IDMS-Traceable creatinine methods. https://jasn.asnjournals.org/content//ASN.2248755496 Calcium 8.6 - 10.6 mg/dL 9.3 Albumin 3.4 - 5.0 g/dL 4.1 Alkaline Phosphatase 33 - 136 U/L 81 Total Protein 6.4 - 8.2 g/dL 6.9 AST 9 - 39 U/L 19 Bilirubin, Total 0.0 - 1.2 mg/dL 0.4 ALT 7 - 45 U/L 25 Comment: Patients treated with Sulfasalazine may generate falsely decreased results for ALT. Resulting Agency [facility] Component Latest Ref Rng & Units 05/22/2023 WBC 3.70 - 11.00 k/uL 6.30 RBC 3.90 - 5.20 m/uL 4.97 Hemoglobin 11.5 - 15.5 g/dL 14.3 Hematocrit 36.0 - 46.0 % 45.3 MCV 80.0 - 100.0 fL 91.1 MCH 26.0 - 34.0 pg 28.8 MCHC 30.5 - 36.0 g/dL 31.6 RDW-CV 11.5 - 15.0 % 14.0 Platelet Count 150 - 400 k/uL 218 MPV 9.0 - 12.7 fL 11.3 Neut% % 50.9 Abs Neut (ANC) 1.45 - 7.50 k/uL 3.20 Lymph% % 37.9 Abs Lymph 1.00 - 4.00 k/uL 2.39 Dickens% % 8.4 Abs Dickens <0.87 k/uL 0.53 Eosin% % 1.7 Abs Eosin <0.46 k/uL 0.11 Baso% % 0.6 Abs Baso <0.11 k/uL 0.04 Immature Gran % % 0.5 IMMATURE GRANS (ABS) <0.10 k/uL 0.03 NRBC /100 WBC 0.0 Absolute nRBC <0.01 k/uL <0.01 DTYPE Auto Component Latest Ref Rng & Units 05/22/2023 Protein, Total 6.3 - 8.0 g/dL 6.7 Albumin 3.9 - 4.9 g/dL 3.9 Calcium 8.5 - 10.2 mg/dL 9.4 Bilirubin, Total 0.2 - 1.3 mg/dL <0.2 (L) Alkaline Phosphatase 34 - 123 U/L 64 AST 13 - 35 U/L 23 ALT 7 - 38 U/L 22 Glucose 74 - 99 mg/dL 181 (H) BUN 7 - 21 mg/dL 18 Creatinine 0.58 - 0.96 mg/dL 0.62 Sodium 136 - 144 mmol/L 136 Potassium 3.7 - 5.1 mmol/L 4.2 Chloride 97 - 105 mmol/L 101 CO2 22 - 30 mmol/L 22 Anion Gap 9 - 18 mmol/L 13 eGFR >=60 mL/min/1.73m 98 Hemoglobin A1C Date Value 05/22/2023 7.0 % 06/11/2022 7.1 09/18/2021 7.2 % ) HISTORIES FAMILY HISTORY Problem Relation Age of Onset Heart Mother Diabetes Mother COPD Mother other (lupus) Mother other (rheumatoid) Mother Heart Sister [place] at age 41 Diabetes Sister Aneurysm Sister Abdominal other (aortic stenosis) Sister other (spesis) Sister PAST MEDICAL HISTORY Diagnosis Date Degenerative disc disease, lumbar Diabetes (HCC) Fibromyalgia GERD (gastroesophageal reflux disease) Hypercholesterolemia Insomnia Lupus (HCC) Osteoarthritis PAST SURGICAL HISTORY Procedure Laterality Date ADENOIDECTOMY PRIMARY <AGE 12 Adenoidectomy APPENDECTOMY CHOLECYSTECTOMY Cholecystectomy COLONOSCOPY 12/24/10 TVA COLONOSCOPY 02/22/13 no polyps COLONOSCOPY FLX DX W/COLLJ SPEC WHEN PFRMD 04/30/2016 Colonoscopy COLONOSCOPY FLX DX W/COLLJ SPEC WHEN PFRMD 07/11/2019 repeat in 5 years ESOPHAGOGASTRODUODENOSCOPY TRANSORAL DIAGNOSTIC 04/30/2016 EGD ESOPHAGOGASTRODUODENOSCOPY TRANSORAL DIAGNOSTIC 07/11/2019 EGD LIG/TRNSXJ FLP TUBE ABDL/VAG APPR UNI/BI Tubal ligation PAST SURGICAL HISTORY OF colon polypectomy PAST SURGICAL HISTORY OF hernia repair TONSILLECTOMY PRIMARY/SECONDARY <AGE 12 Tonsillectomy TOTAL ABDOMINAL HYSTERECT W/WO RMVL TUBE OVARY Hysterectomy, JESSICA supracervical Social History Tobacco Use Smoking status: Never Passive exposure: Current Smokeless tobacco: Never Vaping Use Vaping Use: Never used Substance Use Topics Alcohol use: No Drug use: No ACTIVE PROBLEM LIST Diffuse Myofascial Pain Syndrome Pain of Both Hip Joints Ddd (Degenerative Disc Disease), 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 nefazodone (SERZONE) 200 mg tablet Take 1 tablet by mouth once daily. 90 tablet 1 omeprazole (PRILOSEC) 40 mg capsule Take 1 capsule by mouth every morning. 90 capsule 1 hydroCHLOROthiazide 25 mg tablet Take 1 tablet by mouth once daily. 90 tablet 1 losartan (COZAAR) 50 mg tablet Take 1 tablet by mouth once daily. 90 tablet 1 metFORMIN (GLUCOPHAGE) 1,000 mg tablet Take 1,000 mg by mouth twice daily. sucralfate (CARAFATE) 1 gram tablet Take 1 tablet by mouth before meals and at bedtime. prn (Patient taking differently: Take 1 g by mouth three times a day. prn) dapagliflozin (FARXIGA) 10 mg tablet Take 10 mg by mouth once daily. blood sugar diagnostic (BLOOD GLUCOSE TEST) test strip Test blood sugar(s) bid times daily. Dx: Type 2 DM - Controlled E11.9 Insulin: No 150 Strip 3 glimepiride (AMARYL) 1 mg tablet Taking 1.5 tablets a day aspirin, enteric coated (ASPIRIN, ENTERIC COATED) 81 mg EC tablet Take 81 mg by mouth once daily. Cholecalciferol, Vitamin D3, 25 mcg (1,000 unit) cap Take 1,000 Units by mouth once daily. baclofen (LIORESAL) 10 mg tablet hydrocortisone (ANUSOL-HC) 2.5 % rectal cream by RECTAL route twice daily. Diclofenac Sodium (VOLTAREN) 1 % gel Apply 1 g to affected area twice daily. 30 g 3 hydrOXYchloroQUINE (PLAQUENIL) 200 mg tablet Take by mouth twice daily. OMEGA-3 FATTY ACIDS/FISH OIL (OMEGA 3 FISH OIL ORAL) Take by mouth. MULTIVITAMIN TAB Take one(1) tablet daily. 0 No current facility-administered medications for this visit. BP Controlled (<130/80) Never done Hepatitis B Vaccine(1 of 3 - Risk 3-dose series) Never done RSV Vaccine(1 - 1-dose 60+ series) Never done Influenza Vaccine(1) due on 06/19/2023 Covid-19 Vaccine(2022- season) due on 06/19/2023 EXAM: BP 179/84 Pulse 75 Resp 16 Wt (!) 142 kg (313 lb) LMP 11/09/2005 SpO2 98% BMI 54.58 kg/m Pleasant obese adult wo,man in no acute distress. Alert and oriented all spheres. Normal affect andcognition. Speech normal. No deficits to learning or comprehension. Skin warm, dry, pink to lips and nailbeds. Normal turgor. Respirations regular and unlabored. HEENT: NCAT. No scleral icterus or conjunctival injection. TM's clear. Nose and oropharynx free from injection or lesion. Oral membranes moist and pink. No cervical lymph nodes. Thyroid non-tender, no masses, or enlargement. Carotids pulses 2+/4+ without bruits. No JVD with HOB at 30 degrees. Chest is normal shape. Lungs are clear to all [place] with good air exchange through out. HRRR without murmur or gallop. No lifts, heaves, or rubs. Extrem: no clubbing or cyanosis. Edema: none. Extremities are warm and pink with prompt capillary refill. ASSESSMENT/PLAN: 1. Primary hypertension - ICD9: 401.9, ICD10: I10 (primary diagnosis) - Uncontrolled - Start losartan 100mg daily, stop HCTZ - Recommend home blood pressure monitoring, to bring results to next visit - Encouraged sodium restriction, DASH or Mediterranean diet - Recommend regular aerobic exercise - BASIC METABOLIC PNL 2. Leg cramps - ICD9: 729.82, ICD10: R25.2 - BASIC METABOLIC PNL F/u 4 weeks NV BP Rita Felix PA-C Some of this note may have been copied and pasted for the purpose of history context and comparisonand has been adjusted for changes in prior data. Rita Felix PA-C documented in this encounterC[facility] Evaluation + Plan note* Assessment & Plan Note - Genie Godinez MD - 08/20/2023 1:52 PM EDT Associated Problem(s): Primary osteoarthritis of both knees Needs B TKR but unable to due to inability to lose weight [facility] Work Phone: [phone] 803-843111-02-2023 Miscellaneous Notes* Assessment & Plan Note - Genie Godinez MD - 08/20/2023 1:52 PM EDTAssociated Problem(s): Primary osteoarthritis of both knees Needs B TKR but unable to due to inability to lose weight * Assessment & Plan Note - Genie Godinez MD - 08/20/2023 1:51 PM EDT Associated Problem(s): Systemic lupus erythematosus (CMS/HCC) Lupus on NSAID therapy. Pt had episode of amaurosis fugax and pt stopped plaquenil as a precaution.Pt to doing ok and will monitor off med. Labs ordered to assess disease activity. * Assessment & Plan Note - Genie Godinez MD - 08/20/2023 1:44 PM EDT Associated Problem(s): Class 3 severe obesity due to excess calories with serious comorbidity and body mass index (BMI) of 50.0 to 59.9 in adult (CMS/HCC) Optimize weight to help chronic diseases * Assessment & Plan Note - Genie Godinez MD - 08/20/2023 1:44 PM EDT Associated Problem(s): Diabetes mellitus (CMS/HCC) Managed by PCP * Assessment & Plan Note - Genie Godinez MD - 08/20/2023 1:41 PM EDT Associated Problem(s): Encounter for monitoring of hydroxychloroquine therapy (Resolved 08/20/2023) Medication discontinued due to an eye issue--pt doing ok without and will monitor off med documented in this encounterSelect [facility]: [phone] 402-595111-02-2023 Evaluation + Plan note* Assessment & Plan Note - Genie Godinez MD - 08/20/2023 1:51 PM EDTAssociated Problem(s): Systemic lupus erythematosus (CMS/HCC) Lupus on NSAID therapy. Pt had episode of amaurosis fugax and pt stopped plaquenil as a precaution.Pt to doing ok and will monitor off med. Labs ordered to assess disease activity. [facility] Work Phone: 1([phone]) 104-211111-02-2023 Evaluation + Plan note* Assessment & Plan Note - Genie Godinez MD - 08/20/2023 1:44 PM EDTAssociated Problem(s): Class 3 severe obesity due to excess calories with serious comorbidity and lennox dy mass index (BMI) of 50.0 to 59.9 in adult (CMS/[facility]) Optimize weight to help chronic diseases [facility] Work Phone: [phone]) 487-662111-02-2023 Evaluation + Plan note* Assessment & Plan Note - Genie Godinez MD - 08/20/2023 1:44 PM EDTAssociated Problem(s): Diabetes mellitus ([facility]) Managed by PCP [facility] Work Phone: [phone] 180-985911-02-2023 Evaluation + Plan note* Assessment & Plan Note - Genie Godinez MD - 08/20/2023 1:41 PM EDTAssociated Problem(s): Encounter for monitoring of hydroxychloroquine therapy (Resolved 08/20/2023) Medication discontinued due to an eye issue--pt doing ok without and will monitor off med [facility] Work Phone: [phone] History of Present illness Narrative* Genie Godinez MD - 08/20/2023 1:30 PM EDT Subjective Patient ID: Vilma Dial is a 67 y.o. female who presents for Arthritis and Lupus. HPI Pt reports symptoms are stable. Any flares over the summer were self limited--lasting only several days. No rashes. 3 months ago, had episode of vision loss in L eye--happened twice. Ophtho unable to determine cause. Pt stopped plaquenil. No worsening symptoms off plaquenil Patient Active Problem List Diagnosis Date Noted Degenerative disc disease, lumbar 08/18/2023 Diabetes mellitus ([facility]) 08/18/2023 Fibromyalgia 08/18/2023 Hyperlipidemia 08/18/2023 Hypertension 08/18/2023 Primary insomnia 08/18/2023 Primary osteoarthritis of both knees 08/18/2023 Systemic lupus erythematosus ([facility]) 08/18/2023 Vitamin D deficiency 08/18/2023 Encounter for monitoring of hydroxychloroquine therapy 08/18/2023 Class 3 severe obesity due to excess calories with serious comorbidity and body mass index (BMI) of50.0 to 59.9 in adult ([facility]) 08/18/2023 Past Medical History: Diagnosis Date Anxiety disorder, unspecified Anxiety Fatty liver 11/19/2022 IBS (irritable bowel syndrome) History of irritable bowel syndrome Personal history of colonic polyps History of colonic polyps Portal hypertensive gastropathy ([facility]) 05/19/2023 Post-traumatic stress disorder, unspecified PTSD (post-traumatic stress disorder) Current Outpatient Medications Medication Instructions aspirin 81 mg capsule 1 tablet, oral, Daily baclofen (Lioresal) 10 mg tablet 1 tablet, oral, 3 times daily PRN canagliflozin (Invokana) 300 mg oral cholestyramine light (Prevalite) 4 gram packet 4 G ORALLY DAILY TAKE WITH LUNCH AVOID OTHER MEDS WITHIN 1HR BEFORE OR 4-6HR AFTER DOSE dapagliflozin propanediol (Farxiga) 10 mg 1 tablet, oral, Daily before breakfast diclofenac sodium 1 % kit APPLY FOUR TIMES EVERY DAY TO THE AFFECTED AREA(S) DIRECTED dicyclomine (BENTYL) 10 mg, oral, 2 times daily ergocalciferol, vitamin D2, 50 mcg (2,000 unit) tablet 2 tablets, oral, Daily etodolac (Lodine) 400 mg tablet 1 tablet, oral, 2 times daily PRN glimepiride (Amaryl) 2 mg tablet oral hydroCHLOROthiazide (HYDRODiuril) 25 mg tablet 1 tablet, oral, Daily lisinopril 5 mg tablet oral losartan (Cozaar) 50 mg tablet oral metFORMIN (GLUCOPHAGE) 1,000 mg, oral, 2 times daily with meals multivitamin with minerals iron-free (Centrum Silver) 1 tablet, oral, Daily nefazodone (Serzone) 200 mg tablet 1 tablet, oral, Daily omeprazole (PriLOSEC) [address] capsule 1 capsule, oral, 2 times daily omeprazole (PRILOSEC) 40 mg, oral, Daily before breakfast, Do not crush or chew. [employer] test strips strip USE TO CHECK BLOOD SUGAR TWICE A DAY sucralfate (Carafate) 1 gram tablet oral Allergies Allergen Reactions Ciprofloxacin Other Change in urine color Turned urine red Nitrofurantoin Macrocrystal Other Pravastatin Myalgia Semaglutide Unknown Sitagliptin GI Upset Tramadol Other and Swelling Empagliflozin Palpitations Tizanidine Other, Anxiety, Palpitations and Unknown Heart racing Anxiety went thru the roof and had palpitations. Review of Systems Constitutional: Negative for fever and unexpected weight change. HENT: Negative for congestion. Respiratory: Negative for cough and shortness of breath. Cardiovascular: Negative for leg swelling. Musculoskeletal: Positive for arthralgias and gait problem. Negative for back pain and joint swelling. Skin: Negative for color change and rash. Neurological: Negative for dizziness, weakness, numbness and headaches. Hematological: Does not bruise/bleed easily. Objective BP 156/74 Pulse 72 Temp 36 C (96.8 F) Ht 1.651 m (5' 5) Wt 143 kg (315 lb 12.8 oz) BMI 52.55 kg/m Physical Exam Vitals reviewed. Constitutional: General: She is not in acute distress. Appearance: Normal appearance. HENT: Head: Normocephalic and atraumatic. Eyes: Conjunctiva/sclera: Conjunctivae normal. Pulmonary: Effort: Pulmonary effort is normal. Breath sounds: No wheezing or rales. Musculoskeletal: General: No swelling, tenderness or deformity. Right lower leg: No edema. Left lower leg: No edema. Comments: No synovitis. Atlagic gait Medial joint line tenderness in knees Skin: Findings: No erythema or rash. Neurological: General: No focal deficit present. Mental Status: She is alert. Gait: Gait abnormal. Psychiatric: Mood and Affect: Mood normal. Assessment/Plan Problem List Items Addressed This Visit ICD-10-CM Diabetes mellitus ([facility]) E11.9 Managed by PCP Fibromyalgia M79.7 Primary osteoarthritis of both knees M17.0 Needs B TKR but unable to due to inability to lose weight Systemic lupus erythematosus ([facility]) - Primary M32.9 Lupus on NSAID therapy. Pt had episode of amaurosis fugax and pt stopped plaquenil as a precaution.Pt to doing ok and will monitor off med. Labs ordered to assess disease activity. Relevant Orders Anti-DNA Antibody, Double-Stranded C3 Complement C4 Complement CBC and Auto Differential Comprehensive Metabolic Panel C-Reactive Protein Sedimentation Rate Follow Up In Rheumatology RESOLVED: Encounter for monitoring of hydroxychloroquine therapy Z51.81, Z79.899 Medication discontinued due to an eye issue--pt doing ok without and will monitor off med Class 3 severe obesity due to excess calories with serious comorbidity and body mass index (BMI) of50.0 to 59.9 in adult ([facility]) E66.01, Z68.43 Optimize weight to help chronic diseases documented in this encounterSelect [facility] Work Phone: [phone] Miscellaneous Notes* Letter - Coordinator, Mammography - 08/18/2023 10:38 AM EDT August 19, 2023 PID: [id number] Vilma Dial [address] [place] [id number] Dear Ms. Dial, We are pleased to inform you that the results of your recent breast imaging exam on 08/17/2023 are normal. Early detection of cancer is very important. We also understand recommendations regarding breast cancer screening are controversial. Please discuss with your primary care provider which strategy is best for you and whether a mammogram is right for you. Your imaging studies and report will be kept on file at [facility] as part of your permanent medical record and are available for your continuing care. Thank you for allowing us to help in meeting your health care needs. Sincerely, Dr. Bashir Interpreting Radiologist [facility] (Normal over 40) documented in this encounterCleveland [facility]10-30-2023 History of Present illness Narrative* Agnieszka Melchor APRN.APPEALS BOARD REFEREE - 08/17/2023 1:09 PM EDT Vilma is a 67 year old who presents for an annual gynecologic exam without complaints. Will do pap in 2023 Postmenopausal: Yes, no PMB, h/o supracervical hysterectomy BSO HRT use: No. Last Pap: 08/22/2021 normal HPV: 05/21/2020 negative History of abnormal pap: Yes - LEEP in 2018 for high grade Last mammogram: 2022 today History of abnormal mammogram: Yes - had a breast biopsy Sexually active: no pentration OB History T3 L3 SAB0 IAB0 Ectopic0 Multiple0 Live Births0 Comment: x 3 [employer] History LMP: 11/09/2005, Hysterectomy Age at Menarche: Age at First : Age at Menopause: [employer] History Comments: Sexual Activity: Yes; Male; pt has had JESSICA Contraception: Surgical PAST MEDICAL HISTORY Diagnosis Date Degenerative disc disease, lumbar Diabetes (HCC) Fibromyalgia GERD (gastroesophageal reflux disease) Hypercholesterolemia Insomnia Lupus (HCC) Osteoarthritis PAST SURGICAL HISTORY Procedure Laterality Date ADENOIDECTOMY PRIMARY <AGE 12 Adenoidectomy APPENDECTOMY CHOLECYSTECTOMY Cholecystectomy COLONOSCOPY 12/24/10 TVA COLONOSCOPY 02/22/13 no polyps COLONOSCOPY FLX DX W/COLLJ SPEC WHEN PFRMD 04/30/2016 Colonoscopy COLONOSCOPY FLX DX W/COLLJ SPEC WHEN PFRMD 07/11/2019 repeat in 5 years ESOPHAGOGASTRODUODENOSCOPY TRANSORAL DIAGNOSTIC 04/30/2016 EGD ESOPHAGOGASTRODUODENOSCOPY TRANSORAL DIAGNOSTIC 07/11/2019 EGD LIG/TRNSXJ FLP TUBE ABDL/VAG APPR UNI/BI Tubal ligation PAST SURGICAL HISTORY OF colon polypectomy PAST SURGICAL HISTORY OF hernia repair TONSILLECTOMY PRIMARY/SECONDARY <AGE 12 Tonsillectomy TOTAL ABDOMINAL HYSTERECT W/WO RMVL TUBE OVARY Hysterectomy, JESSICA supracervical FAMILY HISTORY Problem Relation Age of Onset Heart Mother Diabetes Mother COPD Mother other (lupus) Mother other (rheumatoid) Mother Heart Sister [place] at age 41 Diabetes Sister Aneurysm Sister Abdominal other (aortic stenosis) Sister other (spesis) Sister SOCIAL HISTORY Social History Tobacco Use Smoking status: Never Passive exposure: Current Smokeless tobacco: Never Vaping Use Vaping Use: Never used Substance Use Topics Alcohol use: No Drug use: No REVIEW OF SYSTEMS Abdomen: No abdominal pain, nausea, vomiting, or constipation. No bloating, early satiety, indigestion, or increased flatulence. Diarrhea recently better now Bladder: No dysuria, gross hematuria, urinary frequency, urinary urgency, or incontinence Breast: No breast lumps, nipple d/c, overlying skin changes, redness or skin retraction Allergies and current medication updated:Yes EXAM: Ht 5' 3.5 (1.61m) Wt 310 lb (140.6kg) LMP 11/09/2005 BMI 54.05 kg/(m^2). GENERAL: pleasant, female in no apparent distress HEENT: Normocephalic, atraumatic, mucus membranes moist, and no lesions NECK: Supple, full range of motion, no adenopathy, and thyroid normal DERMATOLOGY: Normal, without lesions, non-icteric, and non-hirsute BREAST: soft, non-tender, symmetric, no dominant mass, normal nipple-areolar complex, no lymphadenopathy, and no nipple discharge CHEST: Normal inspiratory effort ABDOMEN: soft, non-tender, and no masses PELVIC: external genitalia normal, normal Bartholin's glands, urethra, Mcgaffey's glands, no vulvar lesions, no cervical lesions, physiologic discharge present, normal appearing perineal body and perianal region BIMANUAL: no adnexal masses, non-tender, and uterus surgically absent RECTOVAGINAL: deferred. NEURO: alert and oriented x3,exam grossly non-focal EXTREMITIES: normal ASSESSMENT/PLAN: 1) Health maintenance: Pap/HPV up to date. Mammogram ordered Mammogram up to date Nutrition, exercise and routine health maintenance exams reviewed. Calcium/Vitamin D supplementation information provided. Colon cancer screening: up to date with screening 2021 @ [facility] BMD: ordered 2) Follow up one year or sooner as needed Agnieszka Melchor APRN.CNP documented in this encounterC[facility]10-30-2023 History of Present illness Narrative* Liliya Alegre Mammo Angel - 08/17/2023 12:30 PM EDT Radiology Service Progress Note PATIENT NAME: Vilma Dial DATE OF SERVICE: August 17, 2023 TIME: 12:33 PM PATIENT IDENTITY VERIFICATION COMPLETED USING TWO (2) IDENTIFIERS: Name and Date of confirmedby patient verbally. FALL SCREENING: Has the patient had 2 falls in the last year or 1 fall with injury or currently using an Ambulatory Assistive Device (Walker, Cane, Wheelchair, Crutches, etc.)? No PATIENT GENDER DATA: Female. status: : No status: NO. PATIENT RELEVANT IMPLANT DATA REVIEWED: Not Applicable RADIOLOGY DEPARTMENT: Mammography PERIPHERAL IV DATA: Not applicable SIGNED BY: Veronica Gamez August 17, 2023 12:33 PM documented in this encounterCleveland [facility]09-07-2023 Miscellaneous Notes* Telephone Encounter - Caroline Fried LPN - 06/25/2023 10:24 AM EDT Patient notified. * Telephone Encounter - Rita Felix PA-C - 06/25/2023 10:06 AM EDT Started 05/25/2023 so approx 4 weeks duration: If recurrent and significant discomfort, she can stop medication. Rashawn Miner PA-C * Telephone Encounter - Rita Caceres RN - 06/25/2023 9:19 AM EDT Patient reports she is taking zetia. Reports she has been taking it one month now. Reports she has hx of trouble taking cholesterol medications, so pcp was trying her on this one. Reports she is having leg cramping into thighs, and rib cramping. Please advise patient. documented in this encounterC[facility]08-01-2023 History of Present illness Narrative* Ron Duenas MD - 05/19/2023 2:40 PM EDT Patient presents with: 6 Month Exam HPI: Patient presents today for office visit for follow up. Had noted some eye issues. Last time about a week ago. First was about a month ago on her left eye. Last time was the right. Saw a half maharaj with triangles in them No flashing lights. No clouds across her vision. No hx of migraines. She stopped her plaquenil. No definite shadow across her vision. No headaches. No focal numbness or weakness. HTN: Checks BP occasionally. mostly 120's-130's./ 60's-70's. Stable. No chest pain No shortness breath Some headaches. Not often. More associated with her neck and the way she sleeps Bouts of vertigo. Not often Some edema in B/L legs. Nothing new DM: Follows with Endo. Dr. Chino Checking sugars twice daily. Averaging 140's No vision changes. No foot lesions, numbness or pain Watching diet. States she's trying to do better. Does not exercise. Last A1c 6.[address] Rosa Isela Capps. no issues. Has fatty liver. Getting evaluation. Had scopes. No longer sees cardiology. Has lupus as well and sees rheum regularly. MEDICATIONS: Current Outpatient Medications Medication Sig losartan (COZAAR) 50 mg tablet Take 1 tablet by mouth once daily. nefazodone (SERZONE) 200 mg tablet Take 1 tablet by mouth once daily. omeprazole (PRILOSEC) 40 mg capsule Take 40 mg by mouth every morning. metFORMIN (GLUCOPHAGE) 1,000 mg tablet Take 1,000 mg by mouth twice daily. hydroCHLOROthiazide (HYDRODIURIL, ESIDRIX) 25 mg tablet Take 1 tablet by mouth once daily. sucralfate (CARAFATE) 1 gram tablet Take 1 tablet by mouth before meals and at bedtime. prn (Patient taking differently: Take 1 g by mouth three times daily. prn) dapagliflozin (FARXIGA) 10 mg tablet Take 10 mg by mouth once daily. blood sugar diagnostic (BLOOD GLUCOSE TEST) test strip Test blood sugar(s) bid times daily. Dx: Type 2 DM - Controlled E11.9 Insulin: No glimepiride (AMARYL) 1 mg tablet Taking 1.5 tablets a day aspirin, enteric coated (ASPIRIN, ENTERIC COATED) 81 mg EC tablet Take 81 mg by mouth once daily. Cholecalciferol, Vitamin D3, 25 mcg (1,000 unit) cap Take 1,000 Units by mouth once daily. baclofen (LIORESAL) 10 mg tablet hydrocortisone (ANUSOL-HC) 2.5 % rectal cream by RECTAL route twice daily. Diclofenac Sodium (VOLTAREN) 1 % gel Apply 1 g to affected area twice daily. hydrOXYchloroQUINE (PLAQUENIL) 200 mg tablet Take by mouth twice daily. OMEGA-3 FATTY ACIDS/FISH OIL (OMEGA 3 FISH OIL ORAL) Take by mouth. MULTIVITAMIN TAB Take one(1) tablet daily. No current facility-administered medications for this visit. ALLERGIES: ALLERGIES Allergen Reactions Ciprofloxacin Other: See Comments Change in urine color Januvia [Sitaglipti* GI Upset Jardiance [Empaglif* Intolerance Macrodantin [Nitrof* Ozempic [Semaglutid* Unknown Pravastatin Myalgia Ultram [Tramadol Hc* Swelling Zanaflex [Tizanidin* Unknown Heart racing PAST MEDICAL HISTORY Diagnosis Date Degenerative disc disease, lumbar Diabetes (HCC) Fibromyalgia GERD (gastroesophageal reflux disease) Hypercholesterolemia Insomnia Lupus (HCC) Osteoarthritis PAST SURGICAL HISTORY Procedure Laterality Date ADENOIDECTOMY PRIMARY <AGE 12 Adenoidectomy APPENDECTOMY CHOLECYSTECTOMY Cholecystectomy COLONOSCOPY 12/24/10 TVA COLONOSCOPY 02/22/13 no polyps COLONOSCOPY FLX DX W/COLLJ SPEC WHEN PFRMD 04/30/2016 Colonoscopy COLONOSCOPY FLX DX W/COLLJ SPEC WHEN PFRMD 07/11/2019 repeat in 5 years ESOPHAGOGASTRODUODENOSCOPY TRANSORAL DIAGNOSTIC 04/30/2016 EGD ESOPHAGOGASTRODUODENOSCOPY TRANSORAL DIAGNOSTIC 07/11/2019 EGD LIG/TRNSXJ FLP TUBE ABDL/VAG APPR UNI/BI Tubal ligation PAST SURGICAL HISTORY OF colon polypectomy PAST SURGICAL HISTORY OF hernia repair TONSILLECTOMY PRIMARY/SECONDARY <AGE 12 Tonsillectomy TOTAL ABDOMINAL HYSTERECT W/WO RMVL TUBE OVARY Hysterectomy, JESSICA supracervical FAMILY HISTORY Problem Relation Age of Onset Heart Mother Diabetes Mother COPD Mother other (lupus) Mother other (rheumatoid) Mother Heart Sister [place] at age 41 Diabetes Sister Aneurysm Sister Abdominal other (aortic stenosis) Sister other (spesis) Sister Social History Tobacco Use Smoking status: Never Smokeless tobacco: Never Vaping Use Vaping Use: Never used Substance Use Topics Alcohol use: No Drug use: No Reviewed current medications, allergies, past medical history, surgical history, family history andsocial history today. REVIEW OF SYSTEMS No gi issues. All other reviewed and negative other than HPI. HEALTH MAINTENANCE: Reviewed health maintenance issues today and recommended the following in detail. BP CONTROLLED (<130/80) Never done MAMMOGRAM-was done in July. Saw research worker encyclopedia. VITALS: BP 126/78 Pulse 70 Ht 165.1 cm (5' 5) Wt (!) 140.5 kg (309 lb 12.8 oz) LMP 11/09/2005 SpO2 98% BMI 51.55 kg/m Last 4 Encounter Wt Readings: Date: Wt: 12/17/2022 140.6 kg (310 lb) 11/19/2022 140.6 kg (310 lb) 08/14/2022 140.6 kg (310 lb) 03/12/2022 141.5 kg (312 lb) PHYSICAL EXAMINATION: General appearance: Well appearing, alert, in no acute distress, well-hydrated, well nourished. Skin: Skin color, texture, turgor normal, no suspicious rashes or lesions Head: Normocephalic, no masses, lesions, tenderness or abnormalities Eyes: Anicteric sclera. Pupils are equally round and reactive to light. Extraocular movements are intact. Neck: Supple, no adenopathy; thyroid symmetric, normal size, no bruits Lungs: Lungs clear to auscultation. No wheezing, rhonchi, rales Heart: RRR without murmur, gallop, or rubs. No ectopy Abdomen: Normal abdominal exam, Abdomen soft, non-tender. Bowel sounds normal. No masses, organomegaly Extremities: No deformities, edema, skin discoloration, clubbing or cyanosis. Good capillary refill. Musculoskeletal: No joint swelling, deformity, or tenderness Peripheral pulses: Normal Neuro: Gait normal. Reflexes normal and symmetric. Sensation grossly intact. ASSESSMENT/PLAN: 1. Type 2 diabetes mellitus with diabetic polyneuropathy, without long-term current use of insulin (HCC) - ICD9: 250.60, 357.2, ICD10: E11.42 (primary diagnosis) - check labs. Sees endo. 2. Primary hypertension - ICD9: 401.9, ICD10: I10 - Controlled - Continue current medications - HYDROCHLOROTHIAZIDE 25 MG TABLET - LOSARTAN 50 MG TABLET 3. Portal hypertensive gastropathy (HCC) - ICD9: 572.3, 537.89, ICD10: K76.6, K31.89 - seeing gi. 4. Mild episode of recurrent major depressive disorder (HCC) - ICD9: 296.31, ICD10: F33.0 - overall stable. 5. Polyneuropathy - ICD9: 356.9, ICD10: G62.9 - doing well. 6. TERI (obstructive sleep apnea) - ICD9: 327.23, ICD10: G47.33 - benefiting from cpap. 7. Systemic lupus erythematosus, unspecified SLE type, unspecified organ involvement status (HCC) -ICD9: 710.0, ICD10: M32.9 - follows with rheum. 8. Fatty liver - ICD9: 571.8, ICD10: K76.0 - per gi. 9. Visual disturbance - ICD9: 368.9, ICD10: H53.9 - see optho temitope. - CONSULT TO OPHTHALMOLOGY 10. Morbid obesity with BMI of 50.0-59.9, adult (HCC) - ICD9: 278.01, V85.43, ICD10: E66.01, Z68.43 - work on weight reduction. Ron Duenas MD documented in this encounterC[facility] History of Present illness Narrative* Falguni Montgomery RN - 05/19/2023 5:44 AM EDT ACM JEREMI RN Action/FYI: Medication Adherence review completed per request of payer. NO PROVIDER ACTION REQUIRED Please see requests in the Summary/Findings section below Patient identified by name and date of . Patient Attributed To: QAE Payer: [facility] Reason for review or outreach: Medication Adherence Medication Adherence Review Details: Cholesterol Summary / Findings: Patient is no longer prescribed Pravastatin d/c on 11/19/22, d/t Myalgia Action Taken: Data submitted to Payer Other Contact made with patient: No, Chart review only. Signature: Falguni Montgomery RN documented in this encounterC[facility]03-01-2023 Instructions* Patient Instructions* Mel Obando APRN.CNP - 12/17/2022 11:30 AM EST Continue the same medication. Continue the home blood pressure checks - if you find that you are having more BPs running over 140than not, let us know. Otherwise, recheck in 6 months. documented in this encounterC[facility]03-01-2023 History of Present illness Narrative* Mel Obando APRN.CNP - 12/17/2022 11:18 AM EST This is a 67 year old female who presents today with: Patient presents with: Follow Up HISTORY OF PRESENT ILLNESS: Vilma Dial is a 67 year old female. Patient presents with: Follow Up HTN: Patient is compliant with meds Yes Monitors bp at home: Yes. -- mostly 120's-130's./ 60's-70's. Denies side effects: No. Chest pain: No. Dyspnea: No. Edema: Yes. Palpitations: No. Syncope: No. Headache: No. Dizziness: No. PAST MEDICAL HISTORY: PAST MEDICAL HISTORY Diagnosis Date Degenerative disc disease, lumbar Diabetes (HCC) Fibromyalgia GERD (gastroesophageal reflux disease) Hypercholesterolemia Insomnia Lupus (HCC) Osteoarthritis PAST SURGICAL HISTORY Procedure Laterality Date ADENOIDECTOMY PRIMARY <AGE 12 Adenoidectomy APPENDECTOMY CHOLECYSTECTOMY Cholecystectomy COLONOSCOPY 12/24/10 TVA COLONOSCOPY 02/22/13 no polyps COLONOSCOPY FLX DX W/COLLJ SPEC WHEN PFRMD 04/30/2016 Colonoscopy COLONOSCOPY FLX DX W/COLLJ SPEC WHEN PFRMD 07/11/2019 repeat in 5 years ESOPHAGOGASTRODUODENOSCOPY TRANSORAL DIAGNOSTIC 04/30/2016 EGD ESOPHAGOGASTRODUODENOSCOPY TRANSORAL DIAGNOSTIC 07/11/2019 EGD LIG/TRNSXJ FLP TUBE ABDL/VAG APPR UNI/BI Tubal ligation PAST SURGICAL HISTORY OF colon polypectomy PAST SURGICAL HISTORY OF hernia repair TONSILLECTOMY PRIMARY/SECONDARY <AGE 12 Tonsillectomy TOTAL ABDOMINAL HYSTERECT W/WO RMVL TUBE OVARY Hysterectomy, JESSICA supracervical ALLERGIES Ciprofloxacin, Januvia [Sitagliptin], Jardiance [Empagliflozin], Macrodantin [Nitrofurantoin], Ozempic [Semaglutide], Pravastatin, Ultram [Tramadol Hcl], and Zanaflex [Tizanidine] MEDICATIONS Current Outpatient Medications Medication Sig Magnesium Chloride (SLOW-MAG) 71.5 mg TbEC Take 1 tablet by mouth once daily. omeprazole (PRILOSEC) 40 mg capsule Take 40 mg by mouth every morning. metFORMIN (GLUCOPHAGE) 1,000 mg tablet Take 1,000 mg by mouth twice daily. hydroCHLOROthiazide (HYDRODIURIL, ESIDRIX) 25 mg tablet Take 1 tablet by mouth once daily. nefazodone (SERZONE) 200 mg tablet Take 1 tablet by mouth once daily. losartan (COZAAR) 50 mg tablet Take 1 tablet by mouth once daily. nitroglycerin sublingual (NITROSTAT) 0.4 mg SL tablet Dissolve 1 tablet under the tongue every 5 minutes as needed for chest pain. sucralfate (CARAFATE) 1 gram tablet Take 1 tablet by mouth before meals and at bedtime. prn (Patient taking differently: Take 1 g by mouth three times daily. prn) dapagliflozin (FARXIGA) 10 mg tablet Take 10 mg by mouth once daily. blood sugar diagnostic (BLOOD GLUCOSE TEST) test strip Test blood sugar(s) bid times daily. Dx: Type 2 DM - Controlled E11.9 Insulin: No glimepiride (AMARYL) 1 mg tablet Taking 1.5 tablets a day aspirin, enteric coated (ASPIRIN, ENTERIC COATED) 81 mg EC tablet Take 81 mg by mouth once daily. Cholecalciferol, Vitamin D3, 25 mcg (1,000 unit) cap Take 1,000 Units by mouth once daily. baclofen (LIORESAL) 10 mg tablet Diclofenac Sodium (VOLTAREN) 1 % gel Apply 1 g to affected area twice daily. hydrOXYchloroQUINE (PLAQUENIL) 200 mg tablet Take by mouth twice daily. zolpidem (AMBIEN) 10 mg tab Take by mouth at bedtime as needed. OMEGA-3 FATTY ACIDS/FISH OIL (OMEGA 3 FISH OIL ORAL) Take by mouth. MULTIVITAMIN TAB Take one(1) tablet daily. cholestyramine low-calorie (QUESTRAN) 4 gram packet Take 4 g by mouth once daily. hydrocortisone (ANUSOL-HC) 2.5 % rectal cream by RECTAL route twice daily. Current Facility-Administered Medications Medication Dose Route Frequency perflutren lipid microspheres 1.3 mL in NaCl (PF) 0.9% 10 mL injection (DEFINITY) INTRAVENOUS DIRECTED PRN sodium chloride 0.9 % (flush) 10 mL (BD POSIFLUSH) 10 mL INTRAVENOUS DIRECTED PRN FAMILY HISTORY Problem Relation Age of Onset Heart Mother Diabetes Mother COPD Mother other (lupus) Mother other (rheumatoid) Mother Heart Sister [place] at age 41 Diabetes Sister Aneurysm Sister Abdominal other (aortic stenosis) Sister other (spesis) Sister Social History Tobacco Use Smoking status: Never Smokeless tobacco: Never Vaping Use Vaping Use: Never used Substance Use Topics Alcohol use: No Drug use: No EXAM: BP 138/80 Pulse 64 Resp 16 Ht 165.1 cm (5' 5) Wt (!) 140.6 kg (310 lb) LMP 11/09/2005 BMI 51.59 kg/m PHYSICAL EXAM: General Appearance: Well appearing, alert, in no acute distress, well-hydrated, well nourished.. Skin: Skin color, texture, turgor normal, no suspicious rashes or lesions. Head: Normocephalic, no masses, lesions, tenderness or abnormalities. Eyes: Anicteric sclera. Extraocular movements are intact. . Lungs: Lungs clear to auscultation. No wheezing, rhonchi, rales.. Heart: RRR without murmur, gallop, or rubs. No ectopy. Neurologic: Gait normal. ASSESSMENT/PLAN: 1. Primary hypertension - ICD9: 401.9, ICD10: I10 - fair control - Continue current medication(s) - Recommended regular aerobic exercise. - Recommend home blood pressure monitoring, to bring results in on next visit - Goal of BP <130/80 Most of her blood pressures at home are in the 120s-130s systolic over 60s and 70s diastolic. She will continue to monitor home blood pressures. If she starts noticing that she is trending higher than 140s, she will notify provider for medication adjustment. She is also starting a weight loss program which hopefully will lower blood pressure even further. Discussed treatment plan and patient voices understanding. Patient's questions answered appropriately. Medications and potential side effects were discussed and patient voices understanding. Return to the office as scheduled or as needed for worsening/no improvement. Mel Obando APRN.APPEALS BOARD REFEREE The patient indicates understanding of these issues and agrees with the plan. This note was partially generated using [employer]pad voice recognition system. Note was reviewed for accuracy. There may be minor misspellings or grammar miscues with Flypad voice recognition. documented in this encounterCleveland [facility]02-13-[facility]23 History of Present illness Narrative* Darrel Contreras - 12/01/2022 1:57 PM EST Consultation requested by Dr. Duenas for an opinion regarding diabetic foot exam. My final recommendations will be communicated back to the requesting physician by way of shared Medical record or letter to requesting physician via US mail. Initial Office Visit Subjective: This 67 year old female presents to clinic for diabetic foot check. Patient has the following complaints: callus and discolored toenails. Patient admits to being diabetic for 10 years now. Patient -B/T/N in feet at this time. Patient -pain in legs when walking. No other pedal complaintsat this time. No change in medications or medical history since last visit. PAIN EVALUATION No data found in the last 1 encounters. Hemoglobin A1C Date Value 06/11/2022 7.1 09/18/2021 7.2 % PCP: Ron Duenas MD PAST MEDICAL HISTORY Diagnosis Date Degenerative disc disease, lumbar Diabetes (HCC) Fibromyalgia GERD (gastroesophageal reflux disease) Hypercholesterolemia Insomnia Lupus (HCC) Osteoarthritis Current Outpatient Medications Medication Sig Magnesium Chloride (SLOW-MAG) 71.5 mg TbEC Take 1 tablet by mouth once daily. cholestyramine low-calorie (QUESTRAN) 4 gram packet Take 4 g by mouth once daily. omeprazole (PRILOSEC) 40 mg capsule Take 40 mg by mouth every morning. metFORMIN (GLUCOPHAGE) 1,000 mg tablet Take 1,000 mg by mouth twice daily. hydroCHLOROthiazide (HYDRODIURIL, ESIDRIX) 25 mg tablet Take 1 tablet by mouth once daily. nefazodone (SERZONE) 200 mg tablet Take 1 tablet by mouth once daily. losartan (COZAAR) 50 mg tablet Take 1 tablet by mouth once daily. nitroglycerin sublingual (NITROSTAT) 0.4 mg SL tablet Dissolve 1 tablet under the tongue every 5 minutes as needed for chest pain. sucralfate (CARAFATE) 1 gram tablet Take 1 tablet by mouth before meals and at bedtime. prn (Patient taking differently: Take 1 g by mouth three times daily. prn) dapagliflozin (FARXIGA) 10 mg tablet Take 10 mg by mouth once daily. blood sugar diagnostic (BLOOD GLUCOSE TEST) test strip Test blood sugar(s) bid times daily. Dx: Type 2 DM - Controlled E11.9 Insulin: No glimepiride (AMARYL) 1 mg tablet Taking 1.5 tablets a day aspirin, enteric coated (ASPIRIN, ENTERIC COATED) 81 mg EC tablet Take 81 mg by mouth once daily. Cholecalciferol, Vitamin D3, 25 mcg (1,000 unit) cap Take 1,000 Units by mouth once daily. baclofen (LIORESAL) 10 mg tablet hydrocortisone (ANUSOL-HC) 2.5 % rectal cream by RECTAL route twice daily. Diclofenac Sodium (VOLTAREN) 1 % gel Apply 1 g to affected area twice daily. hydrOXYchloroQUINE (PLAQUENIL) 200 mg tablet Take by mouth twice daily. zolpidem (AMBIEN) 10 mg tab Take by mouth at bedtime as needed. OMEGA-3 FATTY ACIDS/FISH OIL (OMEGA 3 FISH OIL ORAL) Take by mouth. MULTIVITAMIN TAB Take one(1) tablet daily. Current Facility-Administered Medications Medication Dose Route Frequency perflutren lipid microspheres 1.3 mL in NaCl (PF) 0.9% 10 mL injection (DEFINITY) INTRAVENOUS DIRECTED PRN sodium chloride 0.9 % (flush) 10 mL (BD POSIFLUSH) 10 mL INTRAVENOUS DIRECTED PRN ALLERGIES Allergen Reactions Ciprofloxacin Other: See Comments Change in urine color Januvia [Sitaglipti* GI Upset Jardiance [Empaglif* Intolerance Macrodantin [Nitrof* Ozempic [Semaglutid* Unknown Pravastatin Myalgia Ultram [Tramadol Hc* Swelling Zanaflex [Tizanidin* Unknown Heart racing PAST SURGICAL HISTORY Procedure Laterality Date ADENOIDECTOMY PRIMARY <AGE 12 Adenoidectomy APPENDECTOMY CHOLECYSTECTOMY Cholecystectomy COLONOSCOPY 12/24/10 TVA COLONOSCOPY 02/22/13 no polyps COLONOSCOPY FLX DX W/COLLJ SPEC WHEN PFRMD 04/30/2016 Colonoscopy COLONOSCOPY FLX DX W/COLLJ SPEC WHEN PFRMD 07/11/2019 repeat in 5 years ESOPHAGOGASTRODUODENOSCOPY TRANSORAL DIAGNOSTIC 04/30/2016 EGD ESOPHAGOGASTRODUODENOSCOPY TRANSORAL DIAGNOSTIC 07/11/2019 EGD LIG/TRNSXJ FLP TUBE ABDL/VAG APPR UNI/BI Tubal ligation PAST SURGICAL HISTORY OF colon polypectomy PAST SURGICAL HISTORY OF hernia repair TONSILLECTOMY PRIMARY/SECONDARY <AGE 12 Tonsillectomy TOTAL ABDOMINAL HYSTERECT W/WO RMVL TUBE OVARY Hysterectomy, JESSICA supracervical FAMILY HISTORY Problem Relation Age of Onset Heart Mother Diabetes Mother COPD Mother other (lupus) Mother other (rheumatoid) Mother Heart Sister SD at age 41 Diabetes Sister Aneurysm Sister Abdominal other (aortic stenosis) Sister other (spesis) Sister Social History Tobacco Use Smoking status: Never Smokeless tobacco: Never Vaping Use Vaping Use: Never used Substance Use Topics Alcohol use: No Drug use: No REVIEW OF SYSTEMS GENERAL: Negative for Malaise, significant weight loss, fever RESPIRATORY: Negative for cough, wheezing and shortness of breath CARDIOVASCULAR: Negative for chest pain, leg swelling and palpitations GI: Negative for abdominal discomfort, blood in stools or black stools and change in bowel habits : Negative for dysuria, frequency and incontinence MUSCULOSKELETAL: Negative for joint pain or swelling, back pain, and muscle pain. SKIN: Negative for lesions, rash, and itching. HEMATOLOGY/LYMPHOLOGY Negative for prolonged bleeding, bruising easily, and swollen nodes. ENDOCRINE: Negative for cold or heat intolerance, polyuria, polydipsia and goiter. NEURO: negative The remainder of the review of systems is noncontributory. Objective: Patient presents to clinic ambulating in diabetic shoe Constitutional: Pt is a well developed 67 year old female who is alert, oriented, cooperative and in no apparent distress. Eyes: Following during examination. No redness or drainage. Respiratory: RR normal and nonlabored. Even breathing. No evidence of distress. Psychology: Patient is engaged during conversation. Normal affect and mood. Does not appear depressed or anxious. Vasc: DP and PT pulses are palpable bilateral. CFT is less than 5 seconds bilateral. Skin temperature is warm to warm proximal to distal bilateral. There is no edema or varicosities noted. Hair growth present. Neuro: Protective sensation is intact to the foot and toes when tested with the 5.07 SWM bilateral.Vibratory sensation is decreased at the hallux bilateral. + Significant neurological defecits. Derm: Inspection and palpation performed. Nails left 1-2 and right 2nd are discolored-yellow, thick, crumbly, dystrophic and with subungal debris. Skin is of normal turgor and texture. Hyperkeratosisnoted to b/l hallux. NO ulcerations, scars, verruca or other lesions noted. Ortho: Ankle joint DF is full with the knee extended and full with knee flexed. No pain or crepitusnoted. STJ, MTJ ROM are full and free of pain or crepitus. Muscle strength is 5/5 for dorsiflexors,plantarflexors, inverters, everters. Digital deformities include bunion of right foot. Assessment: (E11.42) Type 2 diabetes mellitus with diabetic polyneuropathy, without long- term current use of insulin ([facility]) (primary encounter diagnosis) (G62.9) Polyneuropathy (M20.11) Hallux valgus of right foot (L84) Callus of foot (L60.3) Onychodystrophy Plan: 1. Patient was seen and evaluated. 2. Patient was instructed on the continued importance of diabetic foot care along with proper diet and keeping their blood sugar under control to prevent complications. Instructions given both oral and written. 3. Discussed bunion of lower extremity resulting in callus. Callus reduced with dremmel. Continue with lotion to feet and diabetic shoes ordered 4. We discussed the possible etiologies of discolored, dystrophic, and thickened nails including fungus, yeast, mold as well as in some instances, prior trauma, or mechanical causes such as repetitive microtrauma in shoe gear. We discussed topical medication for discolored toenails which has very low success but no major side effects. We discussed oral medication. Patient will need hepatic testing prior to use. Patient informed of risks associated with Lamisil. We discussed removal of toenails.Patient would like to proceed with monitoring. She is not interested in oral medication and she hasalready tried topical care without success. Darrel Contreras DPM * Kelly Spear LPN - 12/01/2022 1:25 PM EST AMB ROOMING INTAKE FLOWSHEET DATA Patient presents with: Left Foot - Established Patient, Follow Up, Diabetic Foot Care Right Foot - Established Patient, Follow Up, Diabetic Foot Care Kelly Spear LPN documented in this encounterC[facility]02-13-2023 Instructions* Patient Instructions* Darrel Contreras - 12/01/2022 1:56 PM EST Diabetes Foot Care Instructions When you have diabetes, proper foot care is very important. Poor foot care may lead to amputation of a foot or leg. As a person with diabetes, you are more vulnerable to foot problems, because diabetes can damage your nerves and reduce blood flow to your feet. Here are some diabetes foot care tips to follow: Wash and Dry Your Feet Daily Use mild soaps Use warm water Pat your skin dry; do not rub. Thoroughly dry your feet. After washing, use lotion on your feet to prevent cracking. Do not put lotion between your toes. Examine Your Feet Each Day Check the tops and bottoms of your feet. Have someone else look at your feet if you cannot see them. Check for dry, cracked skin. Look for blisters, cuts, scratches, or other sores. Check for redness, increased warmth, or tenderness when touching any area of your feet. Check for ingrown toenails, corns, and calluses. If you get a blister or sore from your shoes, do not pop it. Apply a bandage and wear a differentpair of shoes. Take Care of Your Toenails Cut toenails after bathing, when they are soft. Cut toenails straight across and smooth with a nail file. Avoid cutting into the corners of toes. Do not cut cuticles. If you have neuropathy (or decreased sensation in your feet) a green building materials designer should always cut your toenails. Be Careful When Exercising Walk and exercise in comfortable shoes. Do not exercise when you have open sores on your feet. Protect Your Feet With Shoes and Socks Never go barefoot. Always protect your feet by wearing shoes or hard-soled slippers or footwear. Avoid shoes with high heels and pointed toes. Avoid shoes that expose your toes or heels (such as open-toed shoes or sandals). These types of shoes increase your risk for injury and potential infections. Try on new footwear with the type of socks you usually wear. Do not wear new shoes for more than an hour at a time. Change your socks daily. Look and feel inside your shoes before putting them on to make sure there are no foreign objects orrough areas. Avoid tight socks. Wear natural-fiber socks (cotton, wool, or a cotton-wool blend). Wear special shoes if your health care provider recommends them. Wear shoes/boots that will protect your feet from various weather conditions (cold, moisture, etc.). Make sure your shoes fit properly. If you have neuropathy (nerve damage), you may not notice that your shoes are too tight. Perform the footwear test described below. Footwear Test Use this simple test to see if your shoes fit correctly: Stand on a piece of paper. (Make sure you are standing and not sitting, because your foot changes shape when you stand.) Trace the outline of your foot. Trace the outline of your shoe. Compare the tracings: Is the shoe too narrow? Is your foot crammed into the shoe? The shoe should be at least 1/2 inch longer than your longest toe and as wide as your foot. Proper Shoe Choices The following types of shoes are best for people with diabetes Closed toes and heels Leather uppers without a seam inside At least 1/2 inch extra space at the end of your longest toe Inside of shoe should be soft with no rough areas Outer sole should be made of stiff material Shoes should be at least as wide as your feet Tips for Foot Care in Diabetes Don't wait to treat a minor foot problem if you have diabetes. Follow your health care provider's guidelines and first aid guidelines. Report foot injuries and infections to your health care provider immediately. Check water temperature with your elbow, not your foot. Do not use a heating pad on your feet. Do not cross your legs. Do not self-treat your corns, calluses, or other foot problems. Go to your health care provider or green building materials designer to treat these conditions. documented in this encounterC[facility]02-07-2023 Miscellaneous Notes* Telephone Encounter - María Tapia - 11/25/2022 4:35 PM EST Patient informed and verbalized understanding. Coming in for BP check on 12/17/22. She states she will get her labs done then. María Regina * Telephone Encounter - Ron Duenas MD - 11/20/2022 8:12 AM EST Her magnesium is slightly low. Sugar are slightly up as well. Add slo mag Recheck mag in a few weeks documented in this encounterCleveland Clinic [facility]10-28-2022 Miscellaneous Notes* Letter - Mammography Coordinator - 08/15/2022 10:01 AM EDT August 15, 2022 PID: [id number] Vilma Dial [address] [place] [id number] Dear Ms. Dial, We are pleased to inform you that the results of your recent breast imaging exam on 08/14/2022 are normal. Early detection of cancer is very important. We also understand recommendations regarding breast cancer screening are controversial. Please discuss with your primary care provider which strategy is best for you and whether a mammogram is right for you. Your imaging studies and report will be kept on file at [facility] as part of your permanent medical record and are available for your continuing care. Thank you for allowing us to help in meeting your health care needs. Sincerely, Dr. Jin Interpreting Radiologist [facility] (Normal over 40) documented in this encounterCleveland Clinic [facility]10-27-2022 History of Present illness Narrative* Agnieszka Melchor APRN.APPEALS BOARD REFEREE - 08/14/2022 1:10 PM EDT Poultry Packer offered: Patient declines. Vilma is a 66 year old who presents for an annual gynecologic exam without complaints. Postmenopausal: Yes, no PMB, h/o supracervical hysterectomy BSO HRT use: No. Last Pap: 08/22/2021 normal HPV: 05/21/2020 negative History of abnormal pap: Yes - LEEP in 2019 for high grade Last mammogram: 2020 normal History of abnormal mammogram: Yes - had a breast biopsy many years ago Sexually active: Yes OB History T3 L3 SAB0 IAB0 Ectopic0 Multiple0 Live Births0 Comment: x 3 [employer] History LMP: 11/09/2005, Hysterectomy Age at Menarche: Age at First : Age at Menopause: [employer] History Comments: Sexual Activity: Yes; Male; pt has had JESSICA Contraception: Surgical PAST MEDICAL HISTORY Diagnosis Date Degenerative disc disease, lumbar Diabetes (HCC) Fibromyalgia GERD (gastroesophageal reflux disease) Hypercholesterolemia Insomnia Lupus (HCC) Osteoarthritis PAST SURGICAL HISTORY Procedure Laterality Date ADENOIDECTOMY PRIMARY <AGE 12 Adenoidectomy APPENDECTOMY CHOLECYSTECTOMY Cholecystectomy COLONOSCOPY 12/24/10 TVA COLONOSCOPY 02/22/13 no polyps COLONOSCOPY FLX DX W/COLLJ SPEC WHEN PFRMD 04/30/2016 Colonoscopy COLONOSCOPY FLX DX W/COLLJ SPEC WHEN PFRMD 07/11/2019 repeat in 5 years ESOPHAGOGASTRODUODENOSCOPY TRANSORAL DIAGNOSTIC 04/30/2016 EGD ESOPHAGOGASTRODUODENOSCOPY TRANSORAL DIAGNOSTIC 07/11/2019 EGD LIG/TRNSXJ FLP TUBE ABDL/VAG APPR UNI/BI Tubal ligation PAST SURGICAL HISTORY OF colon polypectomy PAST SURGICAL HISTORY OF hernia repair TONSILLECTOMY PRIMARY/SECONDARY <AGE 12 Tonsillectomy TOTAL ABDOMINAL HYSTERECT W/WO RMVL TUBE OVARY Hysterectomy, JESSICA supracervical FAMILY HISTORY Problem Relation Age of Onset Heart Mother Diabetes Mother COPD Mother other (lupus) Mother other (rheumatoid) Mother Heart Sister SD at age 41 Diabetes Sister Aneurysm Sister Abdominal other (aortic stenosis) Sister other (spesis) Sister SOCIAL HISTORY Social History Tobacco Use Smoking status: Never Smokeless tobacco: Never Vaping Use Vaping Use: Never used Substance Use Topics Alcohol use: No Drug use: No REVIEW OF SYSTEMS Abdomen: No abdominal pain, nausea, vomiting, diarrhea, or constipation. No bloating, early satiety, indigestion, or increased flatulence. Bladder: No dysuria, gross hematuria, urinary frequency, urinary urgency, or incontinence Breast: No breast lumps, nipple d/c, overlying skin changes, redness or skin retraction Allergies and current medication updated:Yes EXAM: LMP 11/09/2005 GENERAL: pleasant, female in no apparent distress HEENT: Normocephalic, atraumatic, mucus membranes moist, and no lesions NECK: Supple, full range of motion, no adenopathy, and thyroid normal DERMATOLOGY: Normal, without lesions, non-icteric, and non-hirsute BREAST: soft, non-tender, symmetric, no dominant mass, normal nipple-areolar complex, no lymphadenopathy, and no nipple discharge CHEST: Normal inspiratory effort ABDOMEN: soft, non-tender, and no masses PELVIC: external genitalia normal, normal Bartholin's glands, urethra, Mcgaffey's glands, no vulvar lesions, no cervical lesions, physiologic discharge present, normal appearing perineal body and perianal region BIMANUAL: uterus normal size, shape and consistency, no adnexal masses, non- tender, and uterus surgically absent RECTOVAGINAL: deferred. NEURO: alert and oriented x3,exam grossly non-focal EXTREMITIES: normal ASSESSMENT/PLAN: 1) Health maintenance: Pap/HPV up to date. Mammogram up to date Nutrition, exercise and routine health maintenance exams reviewed. Colon cancer screening: followed by PCP BMD: followed by PCP 2) Follow up one year or sooner as needed Agnieszka Melchor APRN.CNP documented in this encounterCleveland Clinic [facility]10-27-2022 History of Present illness Narrative* Liliya Alegre Mammo Tech - 08/14/2022 12:30 PM EDT Radiology Service Progress Note PATIENT NAME: Vilma Dial DATE OF SERVICE: August 14, 2022 TIME: 12:48 PM PATIENT IDENTITY VERIFICATION COMPLETED USING TWO (2) IDENTIFIERS: Name and Date of confirmedby patient verbally. FALL SCREENING: Has the patient had 2 falls in the last year or 1 fall with injury or currently using an Ambulatory Assistive Device (Walker, Cane, Wheelchair, Crutches, etc.)? No PATIENT GENDER DATA: Female. status: : No status: NO. PATIENT RELEVANT IMPLANT DATA REVIEWED: Not Applicable RADIOLOGY DEPARTMENT: Mammography PERIPHERAL IV DATA: Not applicable SIGNED BY: Veronica Gamez August 14, 2022 12:48 PM documented in this encounterCleveland Clinic [facility] Hospital2022 History of Present illness Narrative* The patient is being seen for follow-up of systemic lupus erythematosus. The patient reports no change in the condition. * Interval Events: Patient has been noticing some increased pain especially over the last several months due to the weather. She thinks that over the last several days things are starting to lessen. She has not been taking the etodolac for fear of side effects. However she does note improvement when she does take the medication. * Associated symptoms: myalgia. * Medications: the patient is adherent to her medication regimen, but she denies medication side effects. [employer] Work Phone: [phone]) 620-919309-19-2022 Miscellaneous Notes* Telephone Encounter - Nader Blackburn LPN - 07/07/2022 9:54 AM EDT Patient phones requesting refills as follows: Requested Prescriptions Pending Prescriptions Disp Refills losartan (COZAAR) 50 mg tablet Sig: Take 1 tablet by mouth once daily. pravastatin (PRAVACHOL) 80 mg tablet 30 tablet 11 Sig: Take 1 tablet by mouth once daily. hydroCHLOROthiazide (HYDRODIURIL, ESIDRIX) 25 mg tablet 30 tablet 5 Sig: Take 1 tablet by mouth once daily. nefazodone (SERZONE) 200 mg tablet 30 tablet 2 Sig: Take 1 tablet by mouth once daily. SAÚL 03/12/22 NOV 09/17/22 Please review and advise. Nader Blackburn LPN documented in this encounterCleveland Clinic [facility] Hospital08-01-2022 Miscellaneous Notes* Telephone Encounter - Nader Blackburn LPN - 05/19/2022 10:54 AM EDT Patient phones requesting refills as follows: Pending Prescriptions Disp Refills HYDROCHLOROTHIAZIDE 25 MG TABLET 30 tablet 5 Sig: Take 1 tablet by mouth once daily. EMELY: No NEFAZODONE 200 MG TABLET 30 tablet 2 Sig: Take 1 tablet by mouth once daily. EMELY: No SAÚL 03/12/22 NOV 09/17/22 Please review and advise. Nader Blackburn LPN documented in this encounterCleveland Clinic [facility] Hospital06-24-2022 Miscellaneous Notes* Telephone Encounter - Caroline Fried LPN - 04/11/2022 8:19 AM EDT Referral sent to Dr Natarajan. * Telephone Encounter - Priyanka Sanders - 04/11/2022 8:03 AM EDT Spoke with the patient she prefers to stay local and requesting referral be sent to [facility] to Dr Natarajan. * Telephone Encounter - Ron Duenas MD - 04/10/2022 2:50 PM EDT Can we still get her set up with gi. * Telephone Encounter - Brenda Bruno LPN - 04/10/2022 10:13 AM EDT TC to patient she states her stomach pain is the same as she had at the last visit, has not worsened, just has not improved. She states that she was to be seen by cardiology before being seen by GI. She is unable to get in to cardiology until Jun 25 with [facility]. * Telephone Encounter - Ron Duenas MD - 04/10/2022 9:38 AM EDT She was supposed to see gi for that. Did she set up appt. Can we triage this abd pain. * Telephone Encounter - Brenda Bruno LPN - 04/10/2022 9:17 AM EDT Patient has been identified by name and date of : Yes Patient phones for refill(s): Pending Prescriptions Disp Refills PRAVASTATIN 80 MG TABLET Sig: Take 1 tablet by mouth once daily. NEFAZODONE 200 MG TABLET 0 Sig: Take 1 tablet by mouth once daily. EMELY: No Date of last office visit in primary care: 03/12/22 Please advise. Thank you. Brenda Bruno LPN documented in this encounterCleveland Clinic [facility]06-23-2022 Miscellaneous Notes* Telephone Encounter - Brenda Bruno LPN - 04/10/2022 8:07 AM EDT Patient has been identified by name and date of : Yes Patient phones for refill(s): Pending Prescriptions Disp Refills HYDROCHLOROTHIAZIDE 25 MG TABLET Sig: Take 1 tablet by mouth once daily. EMELY: No Date of last office visit in primary care: 03/12/22 Please advise. Thank you. Brenda Bruno LPN documented in this encounterCleveland Clinic [facility]06-13-2022 Miscellaneous Notes* Telephone Encounter - Ana Gould Ma - 03/31/2022 1:13 PM EDT Referral and demo faxed to [facility]. Will have them contact pt to schedule. Ana Gould Ma * Telephone Encounter - Ron Duenas MD - 03/31/2022 12:46 PM EDT Reviewed with patient Currently feeling well. Stress test at [facility] shows mild anterior ischemia possibly. Added nitro sl prn. To ER if has to use. Please Set up with [facility] soon. Thank you. documented in this encounterCleveland Clinic [facility] Hospital05-31-2022 Miscellaneous Notes* Telephone Encounter - Zayda Sheldon RN - 03/18/2022 3:43 PM EDT Patient calls and notified that referral was sent over to [facility]. Voiced Understanding. Zayda Sheldon RN * Telephone Encounter - Nader Blackburn LPN - 03/18/2022 1:23 PM EDT Order faxed to [facility]. Referral entered into [employer]. TC to pt, left message to return call to office. Nader Blackburn LPN * Telephone Encounter - Ron Duenas MD - 03/18/2022 10:02 AM EDT Yes, please set up at [facility] * Telephone Encounter - Rita Caceres RN - 03/18/2022 9:58 AM EDT Patient reports she just tried to schedule a stress test, but the pss informed her they could not get her in until Jun. Patient asking if pcp wanted her to have it done at [facility]? Please advise patient. documented in this encounterCleveland Clinic [facility] Hospital05-25-2022 History of Present illness Narrative* Elizabeth Temple, RT(R) - 03/12/2022 11:20 AM EDT Radiology Service Progress Note PATIENT NAME: Vilma THORNTONN: [id number] DATE OF SERVICE: March 12, 2022 TIME: 11:21 AM PATIENT IDENTITY VERIFICATION COMPLETED USING TWO (2) IDENTIFIERS: Name and Date of confirmedby patient verbally. FALL SCREENING: Has the patient had 2 falls in the last year or 1 fall with injury or currently using an Ambulatory Assistive Device (Walker, Cane, Wheelchair, Crutches, etc.)? No PATIENT GENDER DATA: Female. status: : No status: NO. PATIENT RELEVANT IMPLANT DATA REVIEWED: Not Applicable RADIOLOGY DEPARTMENT: General X-ray: Exam(s) Completed: Chest X-Ray PERIPHERAL IV DATA: Not applicable SIGNED BY: RT Teja(R) March 12, 2022 11:21 AM [facility] History of Present illness Narrative* Ron Duenas MD - 03/12/2022 10:41 AM EDT Patient presents with: Chest Pain: stomach irritated burning thinks this is related meds don't seem to be working-also doing more gardening Follow Up: medication HPI: Patient presents today for office visit for follow up. Noted chest discomfort which is substernal. Worse sometimes when laying on her left side. Can occasionally get worse with exertion but was doing gardening. Also seems to be associated with stomach upset. Can get gerd symptoms. Does not think the [employer] is working as well. Is on lodine now as well. Was not taking carafate. Had an egd in the past. Is due to colonoscopy as well. Has dm, hld, hypertension. Her sister passes away at age 41 due to SD. It would be difficult to do a treadmill due to her arthritis and lupus. Last a1c under [address] Chino. No cough or shortness of breath. No black stools. Has occasional bleeding when wipes she thinks from hemorrhoids. See previous ov: HTN: Patient is compliant with meds Yes Monitors bp at home: No. Denies side effects: Yes. Chest pain: Has been for year. Is often substernal. Feels like it is muscle. Nonexertional. Wants to hold on working up Dyspnea: No. Edema: Chronic edema .has chronic venous insufficiency. . Palpitations: No. Syncope: No. DM: Reports overall feeling well. Medication side effects: Yes. Home sugar check frequency/results:BID. Have been a little high. Sees Dr. Chino. Last a1c was 7.2. that was in July. Sees her again in the spring, HYPERLIPIDEMIA: Patient is taking medications: Yes. Patient denies myalgias: Nothing new. sees rheumatology. TERI: uses cpap regularly. Sleeps well: Yes. Feels rested on awakening: Yes is benefiting from its use. Needs supplies. Uses it 8 hours per night. Using nefazodone for anxiety. Rarely using ambien. Feels it is working. well Component Latest Ref Rng & Units 09/18/2021 10/01/2021 WBC 3.70 - 11.00 k/uL 8.14 RBC 3.90 - 5.20 m/uL 4.90 Hemoglobin 11.5 - 15.5 g/dL 13.7 Hematocrit 36.0 - 46.0 % 44.8 MCV 80.0 - 100.0 fL 91.4 MCH 26.0 - 34.0 pG 28.0 MCHC 30.5 - 36.0 g/dL 30.6 RDW-CV 11.5 - 15.0 % 14.0 Platelet Count 150 - 400 k/uL 261 MPV 9.0 - 12.7 fL 11.1 Neut% % 66.0 Abs Neut (ANC) 1.45 - 7.50 k/uL 5.37 Lymph% % 24.3 Abs Lymph 1.00 - 4.00 k/uL 1.98 Dickens% % 7.2 Abs Dickens <0.87 k/uL 0.59 Eosin% % 2.0 Abs Eosin <0.46 k/uL 0.16 Baso% % 0.5 Abs Baso <0.11 k/uL 0.04 Nucleated Reds 0 /100 WBC 0.0 Absolute nRBC <0.01 k/uL <0.01 Diff Type Auto Diff Protein, Total 6.3 - 8.0 g/dL 6.9 Albumin 3.9 - 4.9 g/dL 4.3 Calcium 8.5 - 10.2 mg/dL 10.3 (H) Bilirubin, Total 0.2 - 1.3 mg/dL 0.2 Alkaline Phosphatase 34 - 123 U/L 56 AST 13 - 35 U/L 29 Glucose 74 - 99 mg/dL 174 (H) BUN 7 - 21 mg/dL 25 (H) Creatinine 0.58 - 0.96 mg/dL 0.74 Sodium 136 - 144 mmol/L 137 Potassium 3.7 - 5.1 mmol/L 4.1 Chloride 97 - 105 mmol/L 101 CO2 22 - 30 mmol/L 27 Anion Gap 9 - 18 mmol/L 9 ALT 7 - 38 U/L 31 eGFR- >60 eGFR-All Other Races . >60 Cholesterol, Total <200 mg/dL 171 Triglyceride <150 mg/dL 151 (H) HDL Cholesterol >39 mg/dL 43 LDL Cholesterol <100 mg/dL 98 Non HDL Cholesterol <130 mg/dL 128 Fasting Time hrs 12 VLDL Cholesterol <30 mg/dL 30 (H) TC:HDL Ratio <5.10 3.98 LDL:HDL Ratio <2.54 2.28 Hemoglobin A1C 4.3 - 5.6 % 7.2 (H) Estimated Average Glucose mg/dL 160 Ionized Calcium 1.08 - 1.30 mmol/L 1.31 (H) Normalized CAlcium 1.08 - 1.30 mmol/L 1.27 Vitamin D 25 Hydroxy 31.0 - 80.0 ng/mL 38.2 PTH, Intact 15 - 65 pg/mL 19 MEDICATIONS: Current Outpatient Medications Medication Sig losartan (COZAAR) 50 mg tablet Take 1 tablet by mouth once daily. dapagliflozin (FARXIGA) 10 mg tablet Take 10 mg by mouth once daily. hydroCHLOROthiazide (HYDRODIURIL, ESIDRIX) 25 mg tablet Take 1 tablet by mouth once daily. glimepiride (AMARYL) 1 mg tablet Taking 1.5 tablets a day PRAVASTATIN SODIUM (PRAVASTATIN ORAL) Take 80 mg by mouth once daily. aspirin, enteric coated (ASPIRIN LOW DOSE) 81 mg EC tablet Take 81 mg by mouth once daily. Cholecalciferol, Vitamin D3, (VITAMIN D) 1,000 unit cap Take 1,000 Units by mouth once daily. baclofen (LIORESAL) 10 mg tablet Omeprazole Magnesium 20 mg tablet Take 20 mg by mouth twice daily. Diclofenac Sodium (VOLTAREN) 1 % gel Apply 1 g to affected area twice daily. hydroxychloroquine (PLAQUENIL) 200 mg tablet Take by mouth twice daily. OMEGA-3 FATTY ACIDS/FISH OIL (OMEGA 3 FISH OIL ORAL) Take by mouth. metFORMIN 1,000 mg tablet Take 1,000 mg by mouth twice daily with meals. NEFAZODONE 200 MG TAB Take 200 mg by mouth once daily. MULTIVITAMIN TAB Take one(1) tablet daily. etodolac (LODINE) 400 mg tablet Take 400 mg by mouth twice daily as needed. sucralfate (CARAFATE) 1 gram tablet Take 1 tablet by mouth before meals and at bedtime. prn (Patient not taking: Reported on 03/12/2022 ) blood sugar diagnostic (BLOOD GLUCOSE TEST) test strip Test blood sugar(s) bid times daily. Dx: Type 2 DM - Controlled E11.9 Insulin: No hydroCHLOROthiazide (HYDRODIURIL, ESIDRIX) 25 mg tablet Take 25 mg by mouth once daily. hydrocortisone (ANUSOL-HC) 2.5 % rectal cream by RECTAL route twice daily. zolpidem (AMBIEN) 10 mg tab Take by mouth at bedtime as needed. fenofibrate nanocrystallized (TRICOR) 145 mg tablet Take 145 mg by mouth once daily. Current Facility-Administered Medications Medication Dose Route Frequency perflutren lipid microspheres 1.3 mL in NaCl (PF) 0.9% 10 mL injection (DEFINITY) INTRAVENOUS DIRECTED PRN sodium chloride 0.9 % (flush) 10 mL (BD POSIFLUSH) 10 mL INTRAVENOUS DIRECTED PRN ALLERGIES: ALLERGIES Allergen Reactions Ciprofloxacin Other: See Comments Change in urine color Januvia [Sitaglipti* GI Upset Jardiance [Empaglif* Intolerance Macrodantin [Nitrof* Ozempic [Semaglutid* Unknown Ultram [Tramadol Hc* Swelling Zanaflex [Tizanidin* Unknown Heart racing PAST MEDICAL HISTORY Diagnosis Date Degenerative disc disease, lumbar Diabetes (HCC) Fibromyalgia GERD (gastroesophageal reflux disease) Hypercholesterolemia Insomnia Lupus (HCC) Osteoarthritis PAST SURGICAL HISTORY Procedure Laterality Date ADENOIDECTOMY PRIMARY <AGE 12 Adenoidectomy APPENDECTOMY CHOLECYSTECTOMY Cholecystectomy COLONOSCOPY 12/24/10 TVA COLONOSCOPY 02/22/13 no polyps COLONOSCOPY FLX DX W/COLLJ SPEC WHEN PFRMD 04/30/2016 Colonoscopy COLONOSCOPY FLX DX W/COLLJ SPEC WHEN PFRMD 07/11/2019 repeat in 5 years ESOPHAGOGASTRODUODENOSCOPY TRANSORAL DIAGNOSTIC 04/30/2016 EGD ESOPHAGOGASTRODUODENOSCOPY TRANSORAL DIAGNOSTIC 07/11/2019 EGD LIG/TRNSXJ FLP TUBE ABDL/VAG APPR UNI/BI Tubal ligation PAST SURGICAL HISTORY OF colon polypectomy PAST SURGICAL HISTORY OF hernia repair TONSILLECTOMY PRIMARY/SECONDARY <AGE 12 Tonsillectomy TOTAL ABDOMINAL HYSTERECT W/WO RMVL TUBE OVARY Hysterectomy, JESSICA supracervical FAMILY HISTORY Problem Relation Age of Onset Heart Mother Diabetes Mother COPD Mother other (lupus) Mother other (rheumatoid) Mother Heart Sister SD at age 41 Diabetes Sister Aneurysm Sister Abdominal other (aortic stenosis) Sister other (spesis) Sister Social History Tobacco Use Smoking status: Never Smoker Smokeless tobacco: Never Used Vaping Use Vaping Use: Never used Substance Use Topics Alcohol use: No Drug use: No Reviewed current medications, allergies, past medical history, surgical history, family history andsocial history today. REVIEW OF SYSTEMS All other reviewed and negative other than HPI. HEALTH MAINTENANCE: Reviewed health maintenance issues today and recommended the following in detail. DILATED RETINAL EXAM -sees Dr. Quintanilla DEPRESSION SCREENING-done ADVANCE DIRECTIVE DISCUSSION -does not have, discussed. URINE ALBUMIN:CREATININE RATIO due on 03/12/2022 DIABETIC FOOT EXAM -sees podiatry. Sees every six months VITALS: BP 136/80 Pulse 68 Wt (!) 141.5 kg (312 lb) LMP 11/09/2005 BMI 53.92 kg/m Last 4 Encounter Wt Readings: Date: Wt: 03/12/2022 141.5 kg (312 lb) 09/17/2021 140.8 kg (310 lb 6.4 oz) 08/12/2021 141.5 kg (312 lb) 06/18/2021 141.1 kg (311 lb) PHYSICAL EXAMINATION: General appearance: Well appearing, alert, in no acute distress, well-hydrated, well nourished. Skin: two benign skin moles. Red flags for re-assessment reviewed with patient in detail. Head: Normocephalic, no masses, lesions, tenderness or abnormalities Eyes: Anicteric sclera. Pupils are equally round and reactive to light. Extraocular movements are intact. Lungs: Lungs clear to auscultation. No wheezing, rhonchi, rales Heart: RRR , murmur noted again, echo normal. , gallop, or rubs. No ectopy Abdomen: Normal abdominal exam, Abdomen soft, non-tender. Bowel sounds normal. No masses, organomegaly Extremities: No deformities, edema, skin discoloration, clubbing or cyanosis. Good capillary refill. Musculoskeletal: No joint swelling, deformity, or tenderness Peripheral pulses: Normal Neuro: Negative. ASSESSMENT/PLAN: 1. Chest pain, unspecified type - ICD9: 786.50, ICD10: R07.9 (primary diagnosis) - get a chemical stress. Cannot exercise on treadmill. Call if recurs, to ER - ECG COMPLETE - IV DISCONTINUE - INSERT IV ([place]) - [place] CARDIAC PERF STRESS/PHARM - XR CHEST 2V FRONTAL/LAT 2. GERD without esophagitis - ICD9: 530.81, ICD10: K21.9 - resume meds. - CONSULT TO GASTROENTEROLOGY - SUCRALFATE 1 GRAM TABLET 3. Screening for colon cancer - ICD9: V76.51, ICD10: Z12.11 - CONSULT TO GASTROENTEROLOGY 4. Type 2 diabetes mellitus with diabetic polyneuropathy, without long-term current use of insulin (HCC) - ICD9: 250.60, 357.2, ICD10: E11.42 Controlled. - Continue current medications - IV DISCONTINUE - INSERT IV ([place]) - NM CARDIAC PERF STRESS/PHARM 5. Primary hypertension - ICD9: 401.9, ICD10: I10 - good control - Continue current medication(s) - Goal of BP <130/80 - IV DISCONTINUE - INSERT IV ([place]) - [place] CARDIAC PERF STRESS/PHARM 6. TERI (obstructive sleep apnea) - ICD9: 327.23, ICD10: G47.33 - using cpap. Does not sleep well. Suggested seeing sleep med. 7. Family hx of ischem heart dis and oth dis of the circ sys - ICD9: V17.49, ICD10: Z82.49 - IV DISCONTINUE - INSERT IV ([place]) - NM CARDIAC PERF STRESS/PHARM 8. Heart murmur - ICD9: 785.2, ICD10: R01.1 Echo was normal recently. Ron Duenas documented [facility] History of Present illness Narrative* The patient is being seen for follow-up of systemic lupus erythematosus. The patient reports no change in the condition. * Interval Events: Patient reports her lupus is stable. She has had some joint pain but nothing that has been severe she did develop Covid at the end of May and reports that she was ill for an entire month. Despite this she still has some vaccine hesitancy and extensive education was provided . * Associated symptoms: myalgia. * Medications: the patient is adherent to her medication regimen, but she denies medication side effects. [employer] [facility] Work Phone: [phone] 307-818008-01-2021 History of Present illness Narrative* The patient is being seen for follow-up of systemic lupus erythematosus. The patient reports no change in the condition. * Interval Events: Patient reports her lupus is stable. She has had some joint pain but nothing that has been severe she did develop Covid at the end of May and reports that she was ill for an entire month. Despite this she still has some vaccine hesitancy and extensive education was provided . * Associated symptoms: myalgia. * Medications: the patient is adherent to her medication regimen, but she denies medication side effects. [facility] Work Phone: [phone] History of Present illness Narrative* The patient is being seen for follow-up of systemic lupus erythematosus. The patient reports no change in the condition. * Interval Events: pt has continued achiness No worsening rashes. Was up all last night with indigestion (has h/o esophagitis). * Associated symptoms: myalgia. * Medications: the patient is adherent to her medication regimen, but she denies medication side effects. [employer] [facility] Work Phone: Evaluation note* Diagnosis Chest pain, unspecified type- Primary GERD without esophagitis Esophageal reflux Screening for colon cancer Special screening for malignant neoplasms, colon Type 2 diabetes mellitus with diabetic polyneuropathy, without long-term current use of insulin ([facility]) Primary hypertension Unspecified essential hypertension TERI (obstructive sleep apnea) Obstructive sleep apnea (adult) (pediatric) Family hx of ischem heart dis and oth dis of the circ sys Heart murmur Undiagnosed cardiac murmurs Chronic insomnia Insomnia, unspecified [facility] encounter [facility]* Diagnosis Abnormal stress test- Primary Other nonspecific abnormal cardiovascular system function study Chest pain, unspecified type documented in this encounter [facility] note* Diagnosis Onset Date Resolution Status Diabetes chronic Hyperlipidemia chronic Obesity [facility] Work Phone: evaluation note* Diagnosis Primary hypertension Unspecified essential hypertension documented in this encounter [facility] note* Diagnosis Onset Date Resolution Status Abnormal stress test acute Essential hypertension acute Hyperlipidemia [facility] Work Phone: evaluation note* Diagnosis Primary hypertension Unspecified essential hypertension documented in this encounter [facility] note* Diagnosis Encounter for gynecological examination (general) (routine) without abnormal findings- Primary Encounter for screening mammogram for breast cancer [facility]* Diagnosis Onset Date Resolution Status Abnormal stress test acute Essential hypertension chron ic Hyperlipidemia chronic Diabetes chronic Essential hypertension chron ic Morbid obesity with BMI of 50.0-59.9, adult chronic Abdominal pain acute Chest pain acute Diverticular disease acute LLQ abdominal pain acute Rectal bleeding acute GERD (gastroesophageal reflux disease) [facility] Work Phone: evaluation note* Diagnosis Onset Date Resolution Status Diabetes chronic Essential hypertension chron ic Morbid obesity with BMI of 50.0-59.9, adult chronic Abdominal pain acute Chest pain acute Diverticular disease acute LLQ abdominal pain acute Rectal bleeding acute GERD (gastroesophageal reflux disease) [facility] Work Phone: evaluation note* Diagnosis Onset Date Resolution Status Abdominal pain acute Chest pain acute Diverticular disease acute LLQ abdominal pain acute Rectal bleeding acute GERD (gastroesophageal reflux disease) [facility] Work Phone: evaluation note* Diagnosis Onset Date Resolution Status Abdominal pain acute Chest pain acute Diverticular disease acute LLQ abdominal pain acute Rectal bleeding acute GERD (gastroesophageal reflux disease) chronic Fatty liver acute Gastritis acute Portal hypertensive gastropathy acute IBS (irritable bowel syndrome) [facility] Work Phone: evaluation note* Diagnosis Hypomagnesemia- Primary Disorders of magnesium metabolism documented in this encounter [facility] note* Diagnosis Type 2 diabetes mellitus with diabetic polyneuropathy, without long-term current use of insulin (HCC)- Primary Polyneuropathy Unspecified hereditary and idiopathic peripheral neuropathy Hallux valgus of right foot Callus of foot Corns and callosities Onychodystrophy Other specified disease of nail [facility] encounter [facility]* Diagnosis Primary hypertension- Primary Unspecified essential hypertension [facility] Diagnosis Onset Date Resolution Status Fatty liver acute Gastritis acute Portal hypertensive gastropathy acute IBS (irritable bowel syndrome) chronic Diabetes chronic Essential hypertension chron ic Morbid obesity with BMI of 50.0-59.9, adult [facility] Work Phone: Evaluation note* Diagnosis Type 2 diabetes mellitus with diabetic polyneuropathy, without long-term current use of insulin (HCC)- Primary Primary hypertension Unspecified essential hypertension Portal hypertensive gastropathy (HCC) Other specified disorder of stomach and duodenum Mild episode of recurrent major depressive disorder (HCC) Polyneuropathy Unspecified hereditary and idiopathic peripheral neuropathy TERI (obstructive sleep apnea) Obstructive sleep apnea (adult) (pediatric) Systemic lupus erythematosus, unspecified SLE type, unspecified organ involvement status (HCC) Fatty liver Other chronic nonalcoholic liver disease Visual disturbance Unspecified visual disturbance Morbid obesity with BMI of 50.0-59.9, adult (HCC) Morbid obesity documented [facility] this encounter [facility]* Diagnosis Encounter for gynecological examination (general) (routine) without abnormal findings- Primary Encounter for screening mammogram for breast cancer Encounter for screening for osteoporosis Special screening for osteoporosis [facility]* Diagnosis Systemic lupus erythematosus, unspecified SLE type, unspecified organ involvement status (CMS/HCC)- Primary Encounter for monitoring of hydroxychloroquine therapy Fibromyalgia Unspecified myalgia and myositis Class 3 severe obesity due to excess calories with serious comorbidity and body mass index (BMI) of 50.0 to 59.9 in adult (CMS/HCC) Type 2 diabetes mellitus without complication, without long-term current use of insulin (CMS/HCC) Primary osteoarthritis of both knees Systemic lupus erythematosus, unspecified SLE type, unspecified organ involvement status (CMS/HCC) documented in this encounter [facility] Work Phone: Evaluation note* Diagnosis Encounter for screening mammogram for breast cancer documented in this encounter [facility] note* Diagnosis Encounter for screening mammogram for breast cancer documented in this encounter [facility] note* Diagnosis Primary hypertension- Primary Unspecified essential hypertension Leg cramps Cramp of limb documented [facility] this [facility]* Diagnosis Acute cough- Primary URI, acute Acute upper respiratory infections of unspecified site Sinobronchitis Unspecified sinusitis (chronic) documented in this encounter [facility]* Diagnosis Type 2 diabetes mellitus with diabetic polyneuropathy, without long-term current use of insulin (HCC)- Primary Polyneuropathy Unspecified hereditary and idiopathic peripheral neuropathy Fibromyalgia Mylagia and myositis, unspecified Primary hypertension Unspecified essential hypertension Mixed hyperlipidemia TERI (obstructive sleep apnea) Obstructive sleep apnea (adult) (pediatric) Portal hypertensive gastropathy (HCC) (HCC) Other specified disorder of stomach and duodenum Nonalcoholic steatohepatitis (KOTHARI) Other chronic nonalcoholic liver disease Systemic lupus erythematosus, unspecified SLE type, unspecified organ involvement status (HCC) Mild episode of recurrent major depressive disorder (HCC) Morbid obesity with BMI of 50.0-59.9, adult (HCC) Morbid obesity Vitamin D deficiency Unspecified vitamin D deficiency Need for influenza vaccination Need for prophylactic vaccination and inoculation against influenza [facility]* Diagnosis Onset Date Resolution Status Gastritis chronic IBS (irritable bowel syndrome) chronic KOTHARI (nonalcoholic steatohepatitis) [facility] Work Phone: Evaluation note* Diagnosis Medicare annual wellness visit, subsequent- Primary Routine general medical examination at a health care facility documented [facility] this encounter [facility]* Diagnosis Systemic lupus erythematosus, unspecified SLE type, unspecified organ involvement status (Multi)- Primary Fibromyalgia Unspecified myalgia and myositis NSAID long-term use Encounter for long-term (current) use of non-steroidal anti-inflammatories Class 3 severe obesity due to excess calories with serious comorbidity and body mass index (BMI) of 45.0 to 49.9 in adult (Multi) Type 2 diabetes mellitus without complication, without long-term current use of insulin (Multi) Nonalcoholic steatohepatitis (KOTHARI) documented in this encounter [facility] Work Phone: Evaluation note* Diagnosis Diabetic polyneuropathy associated with type 2 diabetes mellitus (HCC)- Primary Hallux valgus of right foot Hammer toe of right foot Callus of foot Corns and callosities documented in this encounter [facility] note* Diagnosis Onset Date Resolution Status Dyslipidemia chronic Gastritis chronic IBS (irritable bowel syndrome) chronic KOTHARI (nonalcoholic steatohepatitis) chronic Diabetes chronic Dyslipidemia chronic Essential hypertension chron ic Morbid obesity with BMI of 50.0-59.9, adult chronic [facility] Work Phone: Evaluation note* Diagnosis Type 2 diabetes mellitus with diabetic polyneuropathy, without long-term current use of insulin (HCC)- Primary Polyneuropathy Unspecified hereditary and idiopathic peripheral neuropathy Fibromyalgia Mylagia and myositis, unspecified Primary insomnia Persistent disorder of initiating or maintaining sleep Mixed hyperlipidemia Primary hypertension Unspecified essential hypertension TERI (obstructive sleep apnea) Obstructive sleep apnea (adult) (pediatric) Portal hypertensive gastropathy (HCC) (HCC) Other specified disorder of stomach and duodenum Nonalcoholic steatohepatitis (KOTHARI) Other chronic nonalcoholic liver disease Uncontrolled type 2 diabetes mellitus with hyperglycemia (HCC) Systemic lupus erythematosus, unspecified SLE type, unspecified organ involvement status (HCC) Mild episode of recurrent major depressive disorder (HCC) Morbid obesity with BMI of 50.0-59.9, adult (HCC) Morbid obesity Vitamin D deficiency Unspecified vitamin D deficiency Encounter for screening examination for other mental health and behavioral disorders Left sided sciatica Sciatica [facility] Abdominal wall strain, initial encounter- Primary [facility] Diagnosis Left sided sciatica Sciatica [facility] Diagnosis Abdominal wall strain, initial encounter [facility] Diagnosis Acute cough URI, acute Acute upper respiratory infections of unspecified site [facility] Diagnosis Chest pain, unspecified type [facility] Diagnosis Primary hypertension- Primary Unspecified essential hypertension [facility] Diagnosis Acute pain of right knee- Primary Acute pain of right knee [facility] Acute pain of right knee [facility] Diagnosis Encounter for gynecological examination (general) (routine) without abnormal findings- Primary Encounter for screening for human papillomavirus (HPV) Special screening examination for human papillomavirus (HPV) Pap smear for cervical cancer screening Screening for malignant neoplasm of the cervix Encounter for screening mammogram for breast cancer [facility] Diagnosis Encounter for screening mammogram for malignant neoplasm of breast Other screening mammogram [facility] Diagnosis Encounter for screening mammogram for malignant neoplasm of breast- Primary Other screening mammogram Encounter for screening mammogram for malignant neoplasm of breast Other screening mammogram [facility] Diagnosis Primary hypertension- Primary Unspecified essential hypertension Uncontrolled type 2 diabetes mellitus with hyperglycemia (HCC) Mixed hyperlipidemia Fibromyalgia Mylagia and myositis, unspecified TERI (obstructive sleep apnea) Obstructive sleep apnea (adult) (pediatric) Type 2 diabetes mellitus with diabetic polyneuropathy, without long-term current use of insulin (HCC) Gastroesophageal reflux disease without esophagitis Esophageal reflux MARCY (generalized anxiety disorder) Generalized anxiety disorder [facility] Diagnosis Hypomagnesemia- Primary Disorders of magnesium metabolism [facility] Diagnosis Fibromyalgia- Primary Mylagia and myositis, unspecified Primary hypertension Unspecified essential hypertension Type 2 diabetes mellitus with diabetic polyneuropathy, without long-term current use of insulin (HCC) Systemic lupus erythematosus, unspecified SLE type, unspecified organ involvement status (HCC) [facility] Diagnosis Primary hypertension Unspecified essential hypertension [facility] Diagnosis Diabetic polyneuropathy associated with type 2 diabetes mellitus (HCC)- Primary Hallux valgus of right foot Arthritis of both midfeet Callus of foot Corns and callosities [facility] Diagnosis Systemic lupus erythematosus, unspecified SLE type, unspecified organ involvement status (Multi)- Primary Encounter for monitoring of hydroxychloroquine therapy Fibromyalgia Unspecified myalgia and myositis Class 3 severe obesity due to excess calories with serious comorbidity and body mass index (BMI) of 50.0 to 59.9 in adult Type 2 diabetes mellitus without complication, without long-term current use of insulin Primary osteoarthritis of both knees Systemic lupus erythematosus, unspecified SLE type, unspecified organ involvement status (Multi)- Primary Fibromyalgia Unspecified myalgia and myositis NSAID long-term use Encounter for long-term (current) use of non-steroidal anti-inflammatories Class 3 severe obesity due to excess calories with serious comorbidity and body mass index (BMI) of 45.0 to 49.9 in adult Type 2 diabetes mellitus without complication, without long-term current use of insulin Nonalcoholic steatohepatitis (KOTHARI) Systemic lupus erythematosus, unspecified SLE type, unspecified organ involvement status (Multi)- Primary NSAID long-term use Encounter for long-term (current) use of non-steroidal anti-inflammatories Class 3 severe obesity due to excess calories with serious comorbidity and body mass index (BMI) of 50.0 to 59.9 in adult Portal hypertension (Multi) Portal hypertension documented in this encounter [facility] Work Phone: History of Present illness Narrative* The patient is being seen for follow-up of systemic lupus erythematosus. The patient reports no change in the condition. * Interval Events: some achiness with the weather change. Did have chest pain and had work up that was negative. Now getting workup for GI symptoms . * Associated symptoms: myalgia. * Medications: the patient is adherent to her medication regimen, but she denies medication side effects. -[facility] Work Phone: Hospital Discharge instructionsAmbulatory Orders* Nutrition Referral Location: [facility] Work Phone: Reason for referral (narrative)* Diagnostic Procedure Only (Routine) - Authorized Specialty Diagnoses / Procedures Referred By Auer lewis Referred To Contact BR IMAGING Diagnoses Encounter for screening mammogram for breast cancer Procedures CIARAN SCREENING SCREENING MAMMOGRAPHY BI 2-VIEW BREAST INC Agnieszka London APRN.[employer] REFEREE [address] [place] [address] [place] [phone] Referral ID Status Reason Start Date Expiration Date Visits Requested Visits Authorized [id number] Authorized Auto-Generat ed Referral 3 09/13/2023 1 1 [facility] for referral (narrative)* Diagnostic Procedure Only (Routine) - Authorized Specialty Diagnoses / Procedures Referred By Aure lewis Referred To Contact BR IMAGING Diagnoses Encounter for screening mammogram for breast cancer Procedures CIARAN SCREENING SCREENING MAMMOGRAPHY BI 2-VIEW BREAST INC Agnieszka London APRN.CNP [address] [place] [address] Br Imaging [address] [place] [address] Referral ID Status Reason Start Date Expiration Date Visits Requested Visits Authorized [id number] Authorized Auto-Generat ed Referral 09/15/2024 1 1 [facility] for referral (narrative)* Consultation (Routine) - Authorized Specialty Diagnoses / Procedures Referred By Aure t Referred To Contact Rheumatology Diagnoses Systemic lupus erythematosus, unspecified SLE type, unspecified organ involvement status (CMS/HCC) Procedures Follow Up In Rheumatology Genie Godinez MD [address] [address] Referral ID Status Reason Start Date Expiration Date V isits Requested Visits Authorized [id number] Authorized 08/20/2023 08/19/2024 1 1 [facility] Work Phone: Reason for referral (narrative)* Diagnostic Procedure Only (Routine) - Closed Specialty Diagnoses / Procedures Referred By Aure lewis Referred To Contact BR IMAGING Diagnoses Encounter for screening mammogram for breast cancer Procedures CIARAN SCREENING SCREENING MAMMOGRAPHY BI 2-VIEW BREAST INC CAD Pau Cleary MD [address] [place] [address] Br Imaging [address] [place] [address] Referral ID Status Reason Start Date Expiration Date V isits Requested Visits Authorized [id number] Closed Auto-Generate d Referral 08/14/2022 10/18/2022 1 1 [facility] for referral (narrative)* Diagnostic Procedure Only (Routine) - Closed Specialty Diagnoses / Procedures Referred By Aure t Referred To Contact BR IMAGING Diagnoses Encounter for screening mammogram for breast cancer Procedures CIARAN SCREENING SCREENING MAMMOGRAPHY BI 2-VIEW BREAST INC CAD Agnieszka Melchor APRN.CNP [address] [place] [address] Br Imaging [address] [place] [address] Referral ID Status Reason Start Date Expiration Date V isits Requested Visits Authorized [id number] Closed Auto-Generate d Referral 08/14/2023 09/13/2023 1 1 [facility] for referral (narrative)* Diagnostic Procedure Only (Routine) - Closed Specialty Diagnoses / Procedures Referred By Contac t Referred To Contact XR IMAGING Diagnoses Left sided sciatica Procedures XR LUMBAR GENERAL 3V AP/LAT/L5-S1 RADEX SPINE LUMBOSACRAL 2/3 VIEWS Ron Duenas MD [address] [place] [address] [place] [address] Referral ID Status Reason Start Date Expiration Date V isits Requested Visits Authorized [id number] Closed Auto-Generate d Referral 05/20/2024 06/19/2025 1 1 [facility] for referral (narrative)* Diagnostic Procedure Only (Routine) - Authorized Specialty Diagnoses / Procedures Referred By Contac t Referred To Contact US IMAGING Diagnoses Abdominal wall strain, initial encounter Procedures US ABDOMEN COMPLETE US ABDOMINAL REAL TIME W/IMAGE DOCUMENTATION Brenda Toth APRN.[employer]FEREE [address] [place] [address] [place] [address] Referral ID Status Reason Start Date Expiration Date Visits Requested Visits Authorized [id number] Authorized Auto-Generat ed Referral 06/24/2024 07/17/2025 1 1 [facility] for referral (narrative)* Diagnostic Procedure Only (Routine) - Closed Specialty Diagnoses / Procedures Referred By Contac t Referred To Contact XR IMAGING Diagnoses Left sided sciatica Procedures XR LUMBAR GENERAL 3V AP/LAT/L5-S1 RADEX SPINE LUMBOSACRAL 2/3 VIEWS Ron Duenas MD [address] [place] [address] [place] [address] Referral ID Status Reason Start Date Expiration Date V isits Requested Visits Authorized [id number] Closed Auto-Generate d Referral 05/20/2024 06/19/2025 1 1 [facility] for referral (narrative)* Diagnostic Procedure Only (Urgent) - Closed Specialty Diagnoses / Procedures Referred By Contac t Referred To Contact XR IMAGING Diagnoses Acute pain of right knee Procedures XR KNEE GENERAL 4V AP BOTH/PA BOTH/LAT/MERC RIGHT RADIOLOGIC EXAM KNEE COMPLETE 4/MORE VIEWS Terrance Simons MD [facility] [place] [address] [place] [address] Referral ID Status Reason Start Date Expiration Date V isits Requested Visits Authorized [id number] Closed Auto-Generate d Referral 07/29/2024 08/28/2025 1 1 [facility] for referral (narrative)* Diagnostic Procedure Only (Urgent) - Closed Specialty Diagnoses / Procedures Referred By Contac t Referred To Contact XR IMAGING Diagnoses Acute pain of right knee Procedures XR KNEE GENERAL 4V AP BOTH/PA BOTH/LAT/MERC RIGHT RADIOLOGIC EXAM KNEE COMPLETE 4/MORE VIEWS Terrance Simons MD [facility] [place] [address] [place] [address] Referral ID Status Reason Start Date Expiration Date V isits Requested Visits Authorized [id number] Closed Auto-Generate d Referral 07/29/2024 08/28/2025 1 1 [facility] for referral (narrative)* Diagnostic Procedure Only (Routine) - Authorized Specialty Diagnoses / Procedures Referred By Contac t Referred To Contact BR IMAGING Diagnoses Encounter for gynecological examination (general) (routine) without abnormal findings Encounter for screening mammogram for breast cancer Procedures CIARAN SCREENING W DAVID SCREENING DIGITAL BREAST TOMOSYNTHESIS BI SCREENING MAMMOGRAPHY BI 2-VIEW BREAST INC CAD Agnieszka Melchor APRN.[employer]EE [address] [place] [address] Br Imaging [address] [place] [address] Referral ID Status Reason Start Date Expiration Date Visits Requested Visits Authorized [id number] Authorized Auto-Generat ed Referral 09/22/2024 10/22/2025 1 1 [facility] for referral (narrative)* Diagnostic Procedure Only (Routine) - Closed Specialty Diagnoses / Procedures Referred By Aure t Referred To Contact BR IMAGING Diagnoses Encounter for screening mammogram for malignant neoplasm of breast Procedures CIARAN SCREENING W DAVID SCREENING DIGITAL BREAST TOMOSYNTHESIS BI SCREENING MAMMOGRAPHY BI 2-VIEW BREAST INC CAD Agnieszka Melchor APRN.[employer] REFEREE [address] [place] [address] Br Imaging [address] [place] [address] Referral ID Status Reason Start Date Expiration Date V isits Requested Visits Authorized [id number] Closed Auto-Generate d Referral 08/18/2024 09/17/2025 1 1 [facility] for referral (narrative)* Diagnostic Procedure Only (Routine) - Closed Specialty Diagnoses / Procedures Referred By Contac t Referred To Contact BR IMAGING Diagnoses Encounter for screening mammogram for malignant neoplasm of breast Procedures CIARAN SCREENING W DAVID SCREENING DIGITAL BREAST TOMOSYNTHESIS BI SCREENING MAMMOGRAPHY BI 2-VIEW BREAST INC CAD Agnieszka Melchor APRN.[employer]EE [address] [place] [address] Br Imaging [address] [place] [address] Referral ID Status Reason Start Date Expiration Date V isits Requested Visits Authorized [id number] Closed Auto-Generate d Referral 08/18/2024 09/17/2025 1 1 [facility] for referral (narrative)No reason for referral information [facility] Work Phone: Reason for visit Narrative* Diagnostic Procedure Only (Routine) - Closed Specialty Diagnoses / Procedures Referred By Contac t Referred To Contact BR IMAGING Diagnoses Encounter for screening mammogram for breast cancer Procedures CIARAN SCREENING SCREENING MAMMOGRAPHY BI 2-VIEW BREAST INC CAD Pau Cleary MD [address] [facility] [place] [address] Br Imaging [address] [place] [address] Referral ID Status Reason Start Date Expiration Date V isits Requested Visits Authorized [id number] Closed Auto-Generate d Referral 08/14/2022 10/18/2022 1 1 [facility] for visit Narrative* Diagnostic Procedure Only (Routine) - Closed Specialty Diagnoses / Procedures Referred By Contac t Referred To Contact BR IMAGING Diagnoses Encounter for screening mammogram for breast cancer Procedures CIARAN SCREENING SCREENING MAMMOGRAPHY BI 2-VIEW BREAST INC Agnieszka Lnodon APRN.CNP [address] [place] [address] Br Imaging [address] [place] [address] Referral ID Status Reason Start Date Expiration Date V isits Requested Visits Authorized [id number] Closed Auto-Generate d Referral 08/14/2023 09/13/2023 1 1 [facility] for visit Narrative* Diagnostic Procedure Only (Routine) - Closed Specialty Diagnoses / Procedures Referred By Contac t Referred To Contact XR IMAGING Diagnoses Left sided sciatica Procedures XR LUMBAR GENERAL 3V AP/LAT/L5-S1 RADEX SPINE LUMBOSACRAL 2/3 VIEWS Ron Duenas MD [address] [place] [address] [place] [address] Referral ID Status Reason Start Date Expiration Date V isits Requested Visits Authorized [id number] Closed Auto-Generate d Referral 05/20/2024 06/19/2025 1 1 [facility] for visit Narrative* Diagnostic Procedure Only (Routine) - Closed Specialty Diagnoses / Procedures Referred By Contac t Referred To Contact Radiology / RADIO GENERAL [facility] Diagnoses Chest pain, unspecified type [R07.9] Procedures XR CHEST Ron Duenas MD [address] [place] [address] Radio General [facility] [address] [place] [address] Referral ID Status Reason Start Date Expiration Date Visits Re quested Visits Authorized [id number] Closed 03/12/2022 10/18/2022 1 1 [facility] for visit Narrative* Diagnostic Procedure Only (Urgent) - Closed Specialty Diagnoses / Procedures Referred By Aure t Referred To Contact XR IMAGING Diagnoses Acute pain of right knee Procedures XR KNEE GENERAL 4V AP BOTH/PA BOTH/LAT/MERC RIGHT RADIOLOGIC EXAM KNEE COMPLETE 4/MORE VIEWS Terrance Simons MD [address] [place] [address] [place] [address] Referral ID Status Reason Start Date Expiration Date V isits Requested Visits Authorized [id number] Closed Auto-Generate d Referral 07/29/2024 08/28/2025 1 1 [facility] for visit Narrative* Diagnostic Procedure Only (Routine) - Closed Specialty Diagnoses / Procedures Referred By Kimac t Referred To Contact BR IMAGING Diagnoses Encounter for screening mammogram for malignant neoplasm of breast Procedures CIARAN SCREENING W DAVID SCREENING DIGITAL BREAST TOMOSYNTHESIS BI SCREENING MAMMOGRAPHY BI 2-VIEW BREAST INC CAD Agnieszka Melchor, EDUCATION OFFICER.[employer] REFEREE [address] [place] [address] Br Imaging [address] [place] [address] Referral ID Status Reason Start Date Expiration Date V isits Requested Visits Authorized [id number] Closed Auto-Generate d Referral 08/18/2024 09/17/2025 1 1 [facility] Family History Grandmother Name Dates Details Family history of diabetes m ellitus(V18.0, Z83.3) Status:Active Family history of cerebrovas cular accident(V17.1, Z82.3) Status:Active Grandfather Name Dates Details Family history of diabetes m ellitus(V18.0, Z83.3) Status:Active aunt Name Dates Details Family history of malignant neoplasm(V16.9, Z80.9) Status:Active Mother Name Dates Details Family history of Status:Active Family history of osteoarthr itis(V17.89, Z82.69) Status:Active Family history of rheumatoid arthritis(V17.7, Z82.61) Status:Active Family history of In poor co ndition Status:Active Family history of chronic ob structive pulmonary disease(V17.6, Z82.5) Status:Active Family history of diabetes m ellitus(V18.0, Z83.3) Status:Active Family history of cardiac di sorder(V17.49, Z82.49) Status:Active Family history of systemic l upus erythematosus(V19.4, Z82.69) Status:Active Father Name Dates Details Family history of Status:Active Family history of cerebrovas cular accident(V17.1, Z82.3) Status:Active Sister Name Dates Details Family history of diabetes m ellitus(V18.0, Z83.3) Status:Active Family history of alcoholism (V17.0, Z81.1) Status:Active Family history of hypertensi on(V17.49, Z82.49) Status:Active Family history of cardiac di sorder(V17.49, Z82.49) Status:Active Grandmother Name Dates Details Family history of diabetes m ellitus(V18.0, Z83.3) Status:Active Family history of cerebrovas cular accident(V17.1, Z82.3) Status:Active Grandfather Name Dates Details Family history of diabetes m ellitus(V18.0, Z83.3) Status:Active aunt Name Dates Details Family history of malignant neoplasm(V16.9, Z80.9) Status:Active Mother Name Dates Details Family history of osteoarthr itis(V17.89, Z82.69) Status:Active Family history of rheumatoid arthritis(V17.7, Z82.61) Status:Active Family history of In poor co ndition Status:Active Family history of chronic ob structive pulmonary disease(V17.6, Z82.5) Status:Active Family history of diabetes m ellitus(V18.0, Z83.3) Status:Active Family history of cardiac di sorder(V17.49, Z82.49) Status:Active Family history of systemic l upus erythematosus(V19.4, Z82.69) Status:Active Family history of Status:Active Father Name Dates Details Family history of cerebrovas cular accident(V17.1, Z82.3) Status:Active Family history of Status:Active Sister Name Dates Details Family history of diabetes m ellitus(V18.0, Z83.3) Status:Active Family history of alcoholism (V17.0, Z81.1) Status:Active Family history of hypertensi on(V17.49, Z82.49) Status:Active Family history of cardiac di sorder(V17.49, Z82.49) Status:Active Grandmother Name Dates Details Family history of diabetes m ellitus(V18.0, Z83.3) Status:Active Family history of cerebrovas cular accident(V17.1, Z82.3) Status:Active Grandfather Name Dates Details Family history of diabetes m ellitus(V18.0, Z83.3) Status:Active aunt Name Dates Details Family history of malignant neoplasm(V16.9, Z80.9) Status:Active Mother Name Dates Details Family history of osteoarthr itis(V17.89, Z82.69) Status:Active Family history of rheumatoid arthritis(V17.7, Z82.61) Status:Active Family history of In poor co ndition Status:Active Family history of chronic ob structive pulmonary disease(V17.6, Z82.5) Status:Active Family history of diabetes m ellitus(V18.0, Z83.3) Status:Active Family history of cardiac di sorder(V17.49, Z82.49) Status:Active Family history of systemic l upus erythematosus(V19.4, Z82.69) Status:Active Family history of (7 99.9, R99) Status:Active Father Name Dates Details Family history of cerebrovas cular accident(V17.1, Z82.3) Status:Active Family history of (7 99.9, R99) Status:Active Sister Name Dates Details Family history of diabetes m ellitus(V18.0, Z83.3) Status:Active Family history of alcoholism (V17.0, Z81.1) Status:Active Family history of hypertensi on(V17.49, Z82.49) Status:Active Family history of cardiac di sorder(V17.49, Z82.49) Status:Active Grandmother Name Dates Details Family history of diabetes m ellitus(V18.0, Z83.3) Status:Active Family history of cerebrovas cular accident(V17.1, Z82.3) Status:Active Grandfather Name Dates Details Family history of diabetes m ellitus(V18.0, Z83.3) Status:Active aunt Name Dates Details Family history of malignant neoplasm(V16.9, Z80.9) Status:Active Mother Name Dates Details Family history of osteoarthr itis(V17.89, Z82.69) Status:Active Family history of rheumatoid arthritis(V17.7, Z82.61) Status:Active Family history of In poor co ndition Status:Active Family history of chronic ob structive pulmonary disease(V17.6, Z82.5) Status:Active Family history of diabetes m ellitus(V18.0, Z83.3) Status:Active Family history of cardiac di sorder(V17.49, Z82.49) Status:Active Family history of systemic l upus erythematosus(V19.4, Z82.69) Status:Active Family history of (7 99.9, R99) Status:Active Father Name Dates Details Family history of cerebrovas cular accident(V17.1, Z82.3) Status:Active Family history of (7 99.9, R99) Status:Active Sister Name Dates Details Family history of diabetes m ellitus(V18.0, Z83.3) Status:Active Family history of alcoholism (V17.0, Z81.1) Status:Active Family history of hypertensi on(V17.49, Z82.49) Status:Active Family history of cardiac di sorder(V17.49, Z82.49) Status:Active Grandmother Name Dates Details Family history of diabetes m ellitus(V18.0, Z83.3) Status:Active Family history of cerebrovas cular accident(V17.1, Z82.3) Status:Active Grandfather Name Dates Details Family history of diabetes m ellitus(V18.0, Z83.3) Status:Active aunt Name Dates Details Family history of malignant neoplasm(V16.9, Z80.9) Status:Active Mother Name Dates Details Family history of osteoarthr itis(V17.89, Z82.69) Status:Active Family history of rheumatoid arthritis(V17.7, Z82.61) Status:Active Family history of In poor co ndition Status:Active Family history of chronic ob structive pulmonary disease(V17.6, Z82.5) Status:Active Family history of diabetes m ellitus(V18.0, Z83.3) Status:Active Family history of cardiac di sorder(V17.49, Z82.49) Status:Active Family history of systemic l upus erythematosus(V19.4, Z82.69) Status:Active Family history of (7 99.9, R99) Status:Active Father Name Dates Details Family history of cerebrovas cular accident(V17.1, Z82.3) Status:Active Family history of (7 99.9, R99) Status:Active Sister Name Dates Details Family history of diabetes m ellitus(V18.0, Z83.3) Status:Active Family history of alcoholism (V17.0, Z81.1) Status:Active Family history of hypertensi on(V17.49, Z82.49) Status:Active Family history of cardiac di sorder(V17.49, Z82.49) Status:Active Unknown Family Member Name Dates Details Family history of osteoarthr itis: Mother(V17.89, Z82.69) Status:Active Family history of rheumatoid arthritis: Mother(V17.7, Z82.61) Status:Active In poor condition: Mother Status:Active Family history of chronic ob structive pulmonary disease: Mother(V17.6, Z82.5) Status:Active Family history of diabetes m ellitus: Mother, Sister, Grandmother, Grandfather(V18.0, Z83.3) Status:Active Family history of cerebrovas cular accident: Father, Grandmother(V17.1, Z82.3) Status:Active Family history of alcoholism : Sister(V17.0, Z81.1) Status:Active Family history of hypertensi on: Sister(V17.49, Z82.49) Status:Active Family history of cardiac di sorder: Mother, Sister(V17.49, Z82.49) Status:Active Family history of malignant neoplasm: Aunt(V16.9, Z80.9) Status:Active Family history of systemic l upus erythematosus: Mother(V19.4, Z82.69) Status:Active : Father, Mother Status:Active Unknown Family Member Name Dates Details Family history of osteoarthr itis: Mother(V17.89, Z82.69) Status:Active Family history of rheumatoid arthritis: Mother(V17.7, Z82.61) Status:Active In poor condition: Mother Status:Active Family history of chronic ob structive pulmonary disease: Mother(V17.6, Z82.5) Status:Active Family history of diabetes m ellitus: Mother, Sister, Grandmother, Grandfather(V18.0, Z83.3) Status:Active Family history of cerebrovas cular accident: Father, Grandmother(V17.1, Z82.3) Status:Active Family history of alcoholism : Sister(V17.0, Z81.1) Status:Active Family history of hypertensi on: Sister(V17.49, Z82.49) Status:Active Family history of cardiac di sorder: Mother, Sister(V17.49, Z82.49) Status:Active Family history of malignant neoplasm: Aunt(V16.9, Z80.9) Status:Active Family history of systemic l upus erythematosus: Mother(V19.4, Z82.69) Status:Active : Father, Mother Status:Active Unknown Family Member Name Dates Details Family history of osteoarthr itis: Mother(V17.89, Z82.69) Status:Active Family history of rheumatoid arthritis: Mother(V17.7, Z82.61) Status:Active In poor condition: Mother Status:Active Family history of chronic ob structive pulmonary disease: Mother(V17.6, Z82.5) Status:Active Family history of diabetes m ellitus: Mother, Sister, Grandmother, Grandfather(V18.0, Z83.3) Status:Active Family history of cerebrovas cular accident: Father, Grandmother(V17.1, Z82.3) Status:Active Family history of alcoholism : Sister(V17.0, Z81.1) Status:Active Family history of hypertensi on: Sister(V17.49, Z82.49) Status:Active Family history of cardiac di sorder: Mother, Sister(V17.49, Z82.49) Status:Active Family history of malignant neoplasm: Aunt(V16.9, Z80.9) Status:Active Family history of systemic l upus erythematosus: Mother(V19.4, Z82.69) Status:Active : Father, Mother Status:Active Unknown Family Member Name Dates Details Family history of osteoarthr itis: Mother(V17.89, Z82.69) Status:Active Family history of rheumatoid arthritis: Mother(V17.7, Z82.61) Status:Active In poor condition: Mother Status:Active Family history of chronic ob structive pulmonary disease: Mother(V17.6, Z82.5) Status:Active Family history of diabetes m ellitus: Mother, Sister, Grandmother, Grandfather(V18.0, Z83.3) Status:Active Family history of cerebrovas cular accident: Father, Grandmother(V17.1, Z82.3) Status:Active Family history of alcoholism : Sister(V17.0, Z81.1) Status:Active Family history of hypertensi on: Sister(V17.49, Z82.49) Status:Active Family history of cardiac di sorder: Mother, Sister(V17.49, Z82.49) Status:Active Family history of malignant neoplasm: Aunt(V16.9, Z80.9) Status:Active Family history of systemic l upus erythematosus: Mother(V19.4, Z82.69) Status:Active : Father, Mother Status:Active Unknown Family Member Name Dates Details Family history of osteoarthr itis: Mother(V17.89, Z82.69) Status:Active Family history of rheumatoid arthritis: Mother(V17.7, Z82.61) Status:Active In poor condition: Mother Status:Active Family history of chronic ob structive pulmonary disease: Mother(V17.6, Z82.5) Status:Active Family history of diabetes m ellitus: Mother, Sister, Grandmother, Grandfather(V18.0, Z83.3) Status:Active Family history of cerebrovas cular accident: Father, Grandmother(V17.1, Z82.3) Status:Active Family history of alcoholism : Sister(V17.0, Z81.1) Status:Active Family history of hypertensi on: Sister(V17.49, Z82.49) Status:Active Family history of cardiac di sorder: Mother, Sister(V17.49, Z82.49) Status:Active Family history of malignant neoplasm: Aunt(V16.9, Z80.9) Status:Active Family history of systemic l upus erythematosus: Mother(V19.4, Z82.69) Status:Active : Father, Mother Status:Active Unknown Family Member Name Dates Details Family history of osteoarthr itis: Mother(V17.89, Z82.69) Status:Active Family history of rheumatoid arthritis: Mother(V17.7, Z82.61) Status:Active In poor condition: Mother Status:Active Family history of chronic ob structive pulmonary disease: Mother(V17.6, Z82.5) Status:Active Family history of diabetes m ellitus: Mother, Sister, Grandmother, Grandfather(V18.0, Z83.3) Status:Active Family history of cerebrovas cular accident: Father, Grandmother(V17.1, Z82.3) Status:Active Family history of alcoholism : Sister(V17.0, Z81.1) Status:Active Family history of hypertensi on: Sister(V17.49, Z82.49) Status:Active Family history of cardiac di sorder: Mother, Sister(V17.49, Z82.49) Status:Active Family history of malignant neoplasm: Aunt(V16.9, Z80.9) Status:Active Family history of systemic l upus erythematosus: Mother(V19.4, Z82.69) Status:Active : Father, Mother Status:Active Unknown Family Member Name Dates Details Family history of osteoarthr itis: Mother(V17.89, Z82.69) Status:Active Family history of rheumatoid arthritis: Mother(V17.7, Z82.61) Status:Active In poor condition: Mother Status:Active Family history of chronic ob structive pulmonary disease: Mother(V17.6, Z82.5) Status:Active Family history of diabetes m ellitus: Mother, Sister, Grandmother, Grandfather(V18.0, Z83.3) Status:Active Family history of cerebrovas cular accident: Father, Grandmother(V17.1, Z82.3) Status:Active Family history of alcoholism : Sister(V17.0, Z81.1) Status:Active Family history of hypertensi on: Sister(V17.49, Z82.49) Status:Active Family history of cardiac di sorder: Mother, Sister(V17.49, Z82.49) Status:Active Family history of malignant neoplasm: Aunt(V16.9, Z80.9) Status:Active Family history of systemic l upus erythematosus: Mother(V19.4, Z82.69) Status:Active : Father, Mother Status:Active Unknown Family Member Name Dates Details Family history of osteoarthr itis: Mother(V17.89, Z82.69) Status:Active Family history of rheumatoid arthritis: Mother(V17.7, Z82.61) Status:Active In poor condition: Mother Status:Active Family history of chronic ob structive pulmonary disease: Mother(V17.6, Z82.5) Status:Active Family history of diabetes m ellitus: Mother, Sister, Grandmother, Grandfather(V18.0, Z83.3) Status:Active Family history of cerebrovas cular accident: Father, Grandmother(V17.1, Z82.3) Status:Active Family history of alcoholism : Sister(V17.0, Z81.1) Status:Active Family history of hypertensi on: Sister(V17.49, Z82.49) Status:Active Family history of cardiac di sorder: Mother, Sister(V17.49, Z82.49) Status:Active Family history of malignant neoplasm: Aunt(V16.9, Z80.9) Status:Active Family history of systemic l upus erythematosus: Mother(V19.4, Z82.69) Status:Active : Father, Mother Status:Active Unknown Family Member Name Dates Details : Father, Mother Status:Active Family history of systemic l upus erythematosus: Mother(V19.4, Z82.69) Status:Active Family history of malignant neoplasm: Aunt(V16.9, Z80.9) Status:Active Family history of cardiac di sorder: Mother, Sister(V17.49, Z82.49) Status:Active Family history of hypertensi on: Sister(V17.49, Z82.49) Status:Active Family history of alcoholism : Sister(V17.0, Z81.1) Status:Active Family history of cerebrovas cular accident: Father, Grandmother(V17.1, Z82.3) Status:Active Family history of diabetes m ellitus: Mother, Sister, Grandmother, Grandfather(V18.0, Z83.3) Status:Active Family history of chronic ob structive pulmonary disease: Mother(V17.6, Z82.5) Status:Active In poor condition: Mother Status:Active Family history of rheumatoid arthritis: Mother(V17.7, Z82.61) Status:Active Family history of osteoarthr itis: Mother(V17.89, Z82.69) Status:Active Unknown Family Member Name Dates Details Family history of osteoarthr itis: Mother(V17.89, Z82.69) Status:Active Family history of rheumatoid arthritis: Mother(V17.7, Z82.61) Status:Active In poor condition: Mother Status:Active Family history of chronic ob structive pulmonary disease: Mother(V17.6, Z82.5) Status:Active Family history of diabetes m ellitus: Mother, Sister, Grandmother, Grandfather(V18.0, Z83.3) Status:Active Family history of cerebrovas cular accident: Father, Grandmother(V17.1, Z82.3) Status:Active Family history of alcoholism : Sister(V17.0, Z81.1) Status:Active Family history of hypertensi on: Sister(V17.49, Z82.49) Status:Active Family history of cardiac di sorder: Mother, Sister(V17.49, Z82.49) Status:Active Family history of malignant neoplasm: Aunt(V16.9, Z80.9) Status:Active Family history of systemic l upus erythematosus: Mother(V19.4, Z82.69) Status:Active : Father, Mother Status:Active Unknown Family Member Name Dates Details Family history of osteoarthr itis: Mother(V17.89, Z82.69) Status:Active Family history of rheumatoid arthritis: Mother(V17.7, Z82.61) Status:Active In poor condition: Mother Status:Active Family history of chronic ob structive pulmonary disease: Mother(V17.6, Z82.5) Status:Active Family history of diabetes m ellitus: Mother, Sister, Grandmother, Grandfather(V18.0, Z83.3) Status:Active Family history of cerebrovas cular accident: Father, Grandmother(V17.1, Z82.3) Status:Active Family history of alcoholism : Sister(V17.0, Z81.1) Status:Active Family history of hypertensi on: Sister(V17.49, Z82.49) Status:Active Family history of cardiac di sorder: Mother, Sister(V17.49, Z82.49) Status:Active Family history of malignant neoplasm: Aunt(V16.9, Z80.9) Status:Active Family history of systemic l upus erythematosus: Mother(V19.4, Z82.69) Status:Active : Father, Mother Status:Active Unknown Family Member Name Dates Details Family history of osteoarthr itis: Mother(V17.89, Z82.69) Status:Active Family history of rheumatoid arthritis: Mother(V17.7, Z82.61) Status:Active In poor condition: Mother Status:Active Family history of chronic ob structive pulmonary disease: Mother(V17.6, Z82.5) Status:Active Family history of diabetes m ellitus: Mother, Sister, Grandmother, Grandfather(V18.0, Z83.3) Status:Active Family history of cerebrovas cular accident: Father, Grandmother(V17.1, Z82.3) Status:Active Family history of alcoholism : Sister(V17.0, Z81.1) Status:Active Family history of hypertensi on: Sister(V17.49, Z82.49) Status:Active Family history of cardiac di sorder: Mother, Sister(V17.49, Z82.49) Status:Active Family history of malignant neoplasm: Aunt(V16.9, Z80.9) Status:Active Family history of systemic l upus erythematosus: Mother(V19.4, Z82.69) Status:Active : Father, Mother Status:Active Unknown Family Member Name Dates Details Family history of osteoarthr itis: Mother(V17.89, Z82.69) Status:Active Family history of rheumatoid arthritis: Mother(V17.7, Z82.61) Status:Active In poor condition: Mother Status:Active Family history of chronic ob structive pulmonary disease: Mother(V17.6, Z82.5) Status:Active Family history of diabetes m ellitus: Mother, Sister, Grandmother, Grandfather(V18.0, Z83.3) Status:Active Family history of cerebrovas cular accident: Father, Grandmother(V17.1, Z82.3) Status:Active Family history of alcoholism : Sister(V17.0, Z81.1) Status:Active Family history of hypertensi on: Sister(V17.49, Z82.49) Status:Active Family history of cardiac di sorder: Mother, Sister(V17.49, Z82.49) Status:Active Family history of malignant neoplasm: Aunt(V16.9, Z80.9) Status:Active Family history of systemic l upus erythematosus: Mother(V19.4, Z82.69) Status:Active : Father, Mother Status:Active Unknown Family Member Name Dates Details Family history of osteoarthr itis: Mother(V17.89, Z82.69) Status:Active Family history of rheumatoid arthritis: Mother(V17.7, Z82.61) Status:Active In poor condition: Mother Status:Active Family history of chronic ob structive pulmonary disease: Mother(V17.6, Z82.5) Status:Active Family history of diabetes m ellitus: Mother, Sister, Grandmother, Grandfather(V18.0, Z83.3) Status:Active Family history of cerebrovas cular accident: Father, Grandmother(V17.1, Z82.3) Status:Active Family history of alcoholism : Sister(V17.0, Z81.1) Status:Active Family history of hypertensi on: Sister(V17.49, Z82.49) Status:Active Family history of cardiac di sorder: Mother, Sister(V17.49, Z82.49) Status:Active Family history of malignant neoplasm: Aunt(V16.9, Z80.9) Status:Active Family history of systemic l upus erythematosus: Mother(V19.4, Z82.69) Status:Active : Father, Mother Status:Active Relationship Condition Age at Onset Recorded Date/T yoko Not Specified Psychiatric care Unknown Malignant neoplasm of skin Unknown Malignant neoplasm of colon Unknown Alcohol abuse Unknown Anemia Unknown Anxiety Unknown Autoimmune disease Unknown Depression Unknown Malignant melanoma Unknown Mental disorder Unknown Myocardial infarction Unknown Disorder of respiratory system Unknown Cerebrovascular accident (CVA) Unknown Asthma Unknown Unknown mother Arthritis Unknown Diabetes mellitus Unknown Cardiac disease Unknown Hypertension Unknown High blood cholesterol Unknown Disorder of thyroid Unknown Lupus erythematosus Unknown father Disorder of liver Unknown Unknown Family Member Name Dates Details Family history of osteoarthr itis: Mother(V17.89, Z82.69) Status:Active Family history of rheumatoid arthritis: Mother(V17.7, Z82.61) Status:Active In poor condition: Mother Status:Active Family history of chronic ob structive pulmonary disease: Mother(V17.6, Z82.5) Status:Active Family history of diabetes m ellitus: Mother, Sister, Grandmother, Grandfather(V18.0, Z83.3) Status:Active Family history of cerebrovas cular accident: Father, Grandmother(V17.1, Z82.3) Status:Active Family history of alcoholism : Sister(V17.0, Z81.1) Status:Active Family history of hypertensi on: Sister(V17.49, Z82.49) Status:Active Family history of cardiac di sorder: Mother, Sister(V17.49, Z82.49) Status:Active Family history of malignant neoplasm: Aunt(V16.9, Z80.9) Status:Active Family history of systemic l upus erythematosus: Mother(V19.4, Z82.69) Status:Active : Father, Mother Status:Active Unknown Family Member Name Dates Details Family history of osteoarthr itis: Mother(V17.89, Z82.69) Status:Active Family history of rheumatoid arthritis: Mother(V17.7, Z82.61) Status:Active In poor condition: Mother Status:Active Family history of chronic ob structive pulmonary disease: Mother(V17.6, Z82.5) Status:Active Family history of diabetes m ellitus: Mother, Sister, Grandmother, Grandfather(V18.0, Z83.3) Status:Active Family history of cerebrovas cular accident: Father, Grandmother(V17.1, Z82.3) Status:Active Family history of alcoholism : Sister(V17.0, Z81.1) Status:Active Family history of hypertensi on: Sister(V17.49, Z82.49) Status:Active Family history of cardiac di sorder: Mother, Sister(V17.49, Z82.49) Status:Active Family history of malignant neoplasm: Aunt(V16.9, Z80.9) Status:Active Family history of systemic l upus erythematosus: Mother(V19.4, Z82.69) Status:Active : Father, Mother Status:Active Unknown Family Member Name Dates Details Family history of osteoarthr itis: Mother(V17.89, Z82.69) Status:Active Family history of rheumatoid arthritis: Mother(V17.7, Z82.61) Status:Active In poor condition: Mother Status:Active Family history of chronic ob structive pulmonary disease: Mother(V17.6, Z82.5) Status:Active Family history of diabetes m ellitus: Mother, Sister, Grandmother, Grandfather(V18.0, Z83.3) Status:Active Family history of cerebrovas cular accident: Father, Grandmother(V17.1, Z82.3) Status:Active Family history of alcoholism : Sister(V17.0, Z81.1) Status:Active Family history of hypertensi on: Sister(V17.49, Z82.49) Status:Active Family history of cardiac di sorder: Mother, Sister(V17.49, Z82.49) Status:Active Family history of malignant neoplasm: Aunt(V16.9, Z80.9) Status:Active Family history of systemic l upus erythematosus: Mother(V19.4, Z82.69) Status:Active : Father, Mother Status:Active Unknown Family Member Name Dates Details Family history of osteoarthr itis: Mother(V17.89, Z82.69) Status:Active Family history of rheumatoid arthritis: Mother(V17.7, Z82.61) Status:Active In poor condition: Mother Status:Active Family history of chronic ob structive pulmonary disease: Mother(V17.6, Z82.5) Status:Active Family history of diabetes m ellitus: Mother, Sister, Grandmother, Grandfather(V18.0, Z83.3) Status:Active Family history of cerebrovas cular accident: Father, Grandmother(V17.1, Z82.3) Status:Active Family history of alcoholism : Sister(V17.0, Z81.1) Status:Active Family history of hypertensi on: Sister(V17.49, Z82.49) Status:Active Family history of cardiac di sorder: Mother, Sister(V17.49, Z82.49) Status:Active Family history of malignant neoplasm: Aunt(V16.9, Z80.9) Status:Active Family history of systemic l upus erythematosus: Mother(V19.4, Z82.69) Status:Active : Father, Mother Status:Active Unknown Family Member Name Dates Details Family history of osteoarthr itis: Mother(V17.89, Z82.69) Status:Active Family history of rheumatoid arthritis: Mother(V17.7, Z82.61) Status:Active In poor condition: Mother Status:Active Family history of chronic ob structive pulmonary disease: Mother(V17.6, Z82.5) Status:Active Family history of diabetes m ellitus: Mother, Sister, Grandmother, Grandfather(V18.0, Z83.3) Status:Active Family history of cerebrovas cular accident: Father, Grandmother(V17.1, Z82.3) Status:Active Family history of alcoholism : Sister(V17.0, Z81.1) Status:Active Family history of hypertensi on: Sister(V17.49, Z82.49) Status:Active Family history of cardiac di sorder: Mother, Sister(V17.49, Z82.49) Status:Active Family history of malignant neoplasm: Aunt(V16.9, Z80.9) Status:Active Family history of systemic l upus erythematosus: Mother(V19.4, Z82.69) Status:Active : Father, Mother Status:Active Unknown Family Member Name Dates Details Family history of osteoarthr itis: Mother(V17.89, Z82.69) Status:Active Family history of rheumatoid arthritis: Mother(V17.7, Z82.61) Status:Active In poor condition: Mother Status:Active Family history of chronic ob structive pulmonary disease: Mother(V17.6, Z82.5) Status:Active Family history of diabetes m ellitus: Mother, Sister, Grandmother, Grandfather(V18.0, Z83.3) Status:Active Family history of cerebrovas cular accident: Father, Grandmother(V17.1, Z82.3) Status:Active Family history of alcoholism : Sister(V17.0, Z81.1) Status:Active Family history of hypertensi on: Sister(V17.49, Z82.49) Status:Active Family history of cardiac di sorder: Mother, Sister(V17.49, Z82.49) Status:Active Family history of malignant neoplasm: Aunt(V16.9, Z80.9) Status:Active Family history of systemic l upus erythematosus: Mother(V19.4, Z82.69) Status:Active : Father, Mother Status:Active Unknown Family Member Name Dates Details Family history of osteoarthr itis: Mother(V17.89, Z82.69) Status:Active Family history of rheumatoid arthritis: Mother(V17.7, Z82.61) Status:Active In poor condition: Mother Status:Active Family history of chronic ob structive pulmonary disease: Mother(V17.6, Z82.5) Status:Active Family history of diabetes m ellitus: Mother, Sister, Grandmother, Grandfather(V18.0, Z83.3) Status:Active Family history of cerebrovas cular accident: Father, Grandmother(V17.1, Z82.3) Status:Active Family history of alcoholism : Sister(V17.0, Z81.1) Status:Active Family history of hypertensi on: Sister(V17.49, Z82.49) Status:Active Family history of cardiac di sorder: Mother, Sister(V17.49, Z82.49) Status:Active Family history of malignant neoplasm: Aunt(V16.9, Z80.9) Status:Active Family history of systemic l upus erythematosus: Mother(V19.4, Z82.69) Status:Active : Father, Mother Status:Active Unknown Family Member Name Dates Details Family history of osteoarthr itis: Mother(V17.89, Z82.69) Status:Active Family history of rheumatoid arthritis: Mother(V17.7, Z82.61) Status:Active In poor condition: Mother Status:Active Family history of chronic ob structive pulmonary disease: Mother(V17.6, Z82.5) Status:Active Family history of diabetes m ellitus: Mother, Sister, Grandmother, Grandfather(V18.0, Z83.3) Status:Active Family history of cerebrovas cular accident: Father, Grandmother(V17.1, Z82.3) Status:Active Family history of alcoholism : Sister(V17.0, Z81.1) Status:Active Family history of hypertensi on: Sister(V17.49, Z82.49) Status:Active Family history of cardiac di sorder: Mother, Sister(V17.49, Z82.49) Status:Active Family history of malignant neoplasm: Aunt(V16.9, Z80.9) Status:Active Family history of systemic l upus erythematosus: Mother(V19.4, Z82.69) Status:Active : Father, Mother Status:Active Unknown Family Member Name Dates Details Family history of osteoarthr itis: Mother(V17.89, Z82.69) Status:Active Family history of rheumatoid arthritis: Mother(V17.7, Z82.61) Status:Active In poor condition: Mother Status:Active Family history of chronic ob structive pulmonary disease: Mother(V17.6, Z82.5) Status:Active Family history of diabetes m ellitus: Mother, Sister, Grandmother, Grandfather(V18.0, Z83.3) Status:Active Family history of cerebrovas cular accident: Father, Grandmother(V17.1, Z82.3) Status:Active Family history of alcoholism : Sister(V17.0, Z81.1) Status:Active Family history of hypertensi on: Sister(V17.49, Z82.49) Status:Active Family history of cardiac di sorder: Mother, Sister(V17.49, Z82.49) Status:Active Family history of malignant neoplasm: Aunt(V16.9, Z80.9) Status:Active Family history of systemic l upus erythematosus: Mother(V19.4, Z82.69) Status:Active : Father, Mother Status:Active Unknown Family Member Name Dates Details Family history of osteoarthr itis: Mother(V17.89, Z82.69) Status:Active Family history of rheumatoid arthritis: Mother(V17.7, Z82.61) Status:Active In poor condition: Mother Status:Active Family history of chronic ob structive pulmonary disease: Mother(V17.6, Z82.5) Status:Active Family history of diabetes m ellitus: Mother, Sister, Grandmother, Grandfather(V18.0, Z83.3) Status:Active Family history of cerebrovas cular accident: Father, Grandmother(V17.1, Z82.3) Status:Active Family history of alcoholism : Sister(V17.0, Z81.1) Status:Active Family history of hypertensi on: Sister(V17.49, Z82.49) Status:Active Family history of cardiac di sorder: Mother, Sister(V17.49, Z82.49) Status:Active Family history of malignant neoplasm: Aunt(V16.9, Z80.9) Status:Active Family history of systemic l upus erythematosus: Mother(V19.4, Z82.69) Status:Active : Father, Mother Status:Active Unknown Family Member Name Dates Details Family history of osteoarthr itis: Mother(V17.89, Z82.69) Status:Active Family history of rheumatoid arthritis: Mother(V17.7, Z82.61) Status:Active In poor condition: Mother Status:Active Family history of chronic ob structive pulmonary disease: Mother(V17.6, Z82.5) Status:Active Family history of diabetes m ellitus: Mother, Sister, Grandmother, Grandfather(V18.0, Z83.3) Status:Active Family history of cerebrovas cular accident: Father, Grandmother(V17.1, Z82.3) Status:Active Family history of alcoholism : Sister(V17.0, Z81.1) Status:Active Family history of hypertensi on: Sister(V17.49, Z82.49) Status:Active Family history of cardiac di sorder: Mother, Sister(V17.49, Z82.49) Status:Active Family history of malignant neoplasm: Aunt(V16.9, Z80.9) Status:Active Family history of systemic l upus erythematosus: Mother(V19.4, Z82.69) Status:Active : Father, Mother Status:Active Unknown Family Member Name Dates Details Family history of osteoarthr itis: Mother(V17.89, Z82.69) Status:Active Family history of rheumatoid arthritis: Mother(V17.7, Z82.61) Status:Active In poor condition: Mother Status:Active Family history of chronic ob structive pulmonary disease: Mother(V17.6, Z82.5) Status:Active Family history of diabetes m ellitus: Mother, Sister, Grandmother, Grandfather(V18.0, Z83.3) Status:Active Family history of cerebrovas cular accident: Father, Grandmother(V17.1, Z82.3) Status:Active Family history of alcoholism : Sister(V17.0, Z81.1) Status:Active Family history of hypertensi on: Sister(V17.49, Z82.49) Status:Active Family history of cardiac di sorder: Mother, Sister(V17.49, Z82.49) Status:Active Family history of malignant neoplasm: Aunt(V16.9, Z80.9) Status:Active Family history of systemic l upus erythematosus: Mother(V19.4, Z82.69) Status:Active : Father, Mother Status:Active Summary Purpose Advance Directives Advance Directive Response Recorded Date/ Time Advance Directives No April 30 6:33am Living Will No June 24 6:47pm Power of Wafer Polisher No June 24, 2021 6:47pm Advance Directive Response Recorded Date/ Time Advance Directives No May 12 3:36pm Living Will No May 12, 2022 3:36pm Power of Wafer Polisher No May 12 3:36pm Advance Directive Response Recorded Date/ Time Advance Directives No May 13 7:03am Living Will No May 13, 2022 7:03am Power of Wafer Polisher No May 13 2 7:03am Advance Directive Response Recorded Date/ Time Advance Directives No May 13 6:03am Living Will No May 13, 2022 6:03am Power of Wafer Polisher No May 13 6:03am Advance Directive Response Recorded Date/ Time Advance Directives No May 13 6:03am Living Will No October 21 8:44am Power of Wafer Polisher No October 21 8:44am Advance Directive Response Recorded Date/ Time Advance Directives No May 13 7:03am Living Will No October 21 9:44am Power of Wafer Polisher No October 21 9:44am Advance Directive Response Recorded Date/ Time Living Will No October 21 9:44am Do you have a Healthcare Power of Wafer Polisher? No October 21, 2022 9:44am Living Will No November 17 1:17pm Do you have a Healthcare Power of Wafer Polisher? No November 17, 2024 1:17pm Advance Directives No May 13 7:03am Advance Directive Response Recorded Date/ Time Advance Directives No May 13 7:03am Chief Complaint Lupus 4 month F/ULupus 4 month F/ULupus 4 month F/ULupus follow upLupus follow up Reason for Referral Specialty Diagnoses / Procedures Referred By Aure lewis Referred To Contact Diagnoses TERI (obstructive sleep apnea) Chronic insomnia Procedures CONSULT TO SLEEP MEDICINE - ADULT OFFICE/OUTPATIENT [facility] 60-74 MINUTES Ron Duenas MD [address] [place] [address] Referral ID Status Reason Start Date Expiration Date Visits Requested Visits Authorized [id number] Pending Review PCP Requested Referral 03/12/2022 03/12/2023 1 1 Specialty Diagnoses / Procedures Referred By uAre lewis Referred To Contact [facility]AGING Diagnoses Chest pain, unspecified type Type 2 diabetes mellitus with diabetic polyneuropathy, without long-term current use of insulin (HCC) Primary hypertension Family hx of ischem heart dis and oth dis of the circ sys Procedures NM CARDIAC PERF STRESS/PHARM MYOCARDIAL SPECT MULTIPLE STUDIES Ron Duenas MD [address] [place] [address] Molecular [facility] Functional [facility] [address] [place] [address] Referral ID Status Reason Start Date Expiration Date Visits Requested Visits Authorized [id number] Pending Review Auto-Generat ed Referral 03/12/2022 04/11/2023 1 1 Specialty Diagnoses / Procedures Referred By Contac t Referred To Contact Gastroenterology Diagnoses GERD without esophagitis Screening for colon cancer Procedures CONSULT TO GASTROENTEROLOGY OFFICE/OUTPATIENT [facility] 60-74 MINUTES Ron Duenas MD [address] [place] [phone] Referral ID Status Reason Start Date Expiration Date Visits Requested Visits Authorized [id number] Pending Review PCP Requested Referral 03/12/2022 03/12/2023 1 1 Specialty Diagnoses / Procedures Referred By Contac t Referred To Contact [facility] Diagnoses Chest pain, unspecified type Procedures ECG COMPLETE ECG ROUTINE ECG W/LEAST 12 LDS W/I&R Ron Duenas MD [address] [place] [id number] [facility] [address] [place] [address] Referral ID Status Reason Start Date Expiration Date Visits Re quested Visits Authorized [id number] Closed 03/12/2022 10/18/2022 1 1 Specialty Diagnoses / Procedures Referred By Contac t Referred To Contact Cardiology Diagnoses Abnormal stress test Procedures CONSULT TO CARDIOLOGY Ron Duenas MD [address] [place] [phone] Referral ID Status Reason Start Date Expiration Date Visits Requested Visits Authorized [id number] Ref Not Required PCP Requested Referral 03/31/2022 03/31/2023 1 1 Specialty Diagnoses / Procedures Referred By Contac t Referred To Contact Ophthalmology Diagnoses Visual disturbance Procedures CONSULT TO OPHTHALMOLOGY OFFICE/OUTPATIENT [facility] 60-74 MINUTES Rno Duenas MD [address] [place] [phone] Referral ID Status Reason Start Date Expiration Date Visits Requested Visits Authorized [id number] Pending Review PCP Requested Referral 05/19/2023 05/18/2024 1 1 Chief Complaint and Reason for Visit Chief Complaint F/U CP/ANGINA, HIGH CAD RISK CP/ANGINA, HIGH CAD RISK Reason for Visit Diabetes Hyperlipidemia Obesity Chief Complaint CP/ANGINA, HIGH CAD RISK CP/ANGINA, HIGH CAD RISK ABNORMAL STRESS TEST Reason for Visit Abnormal stress test Essential hypertension Hyperlipidemia Chief Complaint CP/ANGINA, HIGH CAD RISK CP/ANGINA, HIGH CAD RISK ABNORMAL STRESS TEST abn stress Reason for Visit Abnormal stress test Essential hypertension Hyperlipidemia Chief Complaint ABNORMAL STRESS TEST abn stress abn stress 6 M FU Consult EORDERS STOOL Reason for Visit Abnormal stress test Essential hypertension Hyperlipidemia Diabetes Essential hypertension Morbid obesity with BMI of 50.0-59.9, adult Abdominal pain Chest pain Diverticular disease LLQ abdominal pain Rectal bleeding GERD (gastroesophageal reflux disease) Chief Complaint 6 M FU Consult EORDERS STOOL LLQ PAIN, RECTAL BLEEDING Reason for Visit Diabetes Essential hypertension Morbid obesity with BMI of 50.0-59.9, adult Abdominal pain Chest pain Diverticular disease LLQ abdominal pain Rectal bleeding GERD (gastroesophageal reflux disease) Chief Complaint Consult EORDERS STOOL LLQ PAIN, RECTAL BLEEDING Reason for Visit Abdominal pain Chest pain Diverticular disease LLQ abdominal pain Rectal bleeding GERD (gastroesophageal reflux disease) Chief Complaint Consult EORDERS STOOL LLQ PAIN, RECTAL BLEEDING 2 WK FU E ORDER FATTY LIVER Reason for Visit Abdominal pain Chest pain Diverticular disease LLQ abdominal pain Rectal bleeding GERD (gastroesophageal reflux disease) Fatty liver Gastritis Portal hypertensive gastropathy IBS (irritable bowel syndrome) Chief Complaint 2 WK FU E ORDER FATTY LIVER 6 M FU TYPE 2 DM Reason for Visit Fatty liver Gastritis Portal hypertensive gastropathy IBS (irritable bowel syndrome) Diabetes Essential hypertension Morbid obesity with BMI of 50.0-59.9, adult Chief Complaint First Visit 60 Nonalcoholic steatohepatitis (KOTHARI) Reason for Visit Gastritis IBS (irritable bowel syndrome) KOTHARI (nonalcoholic steatohepatitis) Chief Complaint Nonalcoholic steatoh epatitis (KOTHARI) 3 MO FU 30 M 6 m fu Reason for Visit Dyslipidemia Gastritis IBS (irritable bowel syndrome) KOTHARI (nonalcoholic steatohepatitis) Diabetes Dyslipidemia Essential hypertension Morbid obesity with BMI of 50.0-59.9, adult Chief Complaint Admit Date 4 M FU November 16, 2024 8 :37am HTN November 17, 2024 1 1:33am Reason for Visit Admit Date Diabetes November 16, 2024 8 :37am Dyslipidemia November 16, 2024 8 :37am Essential hypertension November 16 8:37am Fatty liver November 16, 2024 8 :37am High triglycerides November 16, 2024 8 :37am Obesity November 16, 2024 8 :37am Chief Complaint Admit Date FU February 16, 2025 2:15pm TYPE 2 DM April 10, 2025 12:4 9pm Reason for Visit Admit Date High triglycerides February 16, 2025 2:15pm IBS (irritable bowel syndrome) February 16, 2025 2:15pm Metabolic dysfunction-associated steatot ic liver disease (MASLD) February 16, 2025 2:15pm Additional Source Comments INFORMATION SOURCE (unrecogn ized section and content) DATE CREATED AUTHOR 08/03/2020 [facility] DATE CREATED AUTHOR AUTHOR'S ORGANIZ ATION 09/24/2022 [facility] DATE CREATED AUTHOR AUTHOR'S ORGANIZ ATION 02/22/2023 [employer] DATE CREATED AUTHOR AUTHOR'S ORGANIZ ATION 02/27/2023 [facility] DATE CREATED AUTHOR AUTHOR'S ORGANIZ ATION 08/24/2023 [facility] DATE CREATED AUTHOR AUTHOR'S ORGANIZ ATION 10/10/2024 [facility] DATE CREATED AUTHOR AUTHOR'S ORGANIZ ATION 02/24/2025 [facility] DATE CREATED AUTHOR AUTHOR'S ORGANIZ ATION 04/18/2025 [facility] Source Comments (unrecognize d section and content) In the event this informatio n is protected by the Federal Confidentiality of Alcohol and Drug Abuse Patient Records regulations: The Federal rules restrict any use of the information to criminally investigate or prosecute any alcohol or drug abuse patient.[facility] the event this information is protected by the Federal Confidentiality of Alcohol and Drug Abuse Patient Records regulations: The Federal rules restrict any use of the information to criminally investigate or prosecute any alcohol or drug abuse patient.[facility] the event this information is protected by the Federal Confidentiality of Alcohol and Drug Abuse Patient Records regulations: The Federal rules restrict any use of the information to criminally investigate or prosecute any alcohol or drug abuse patient.[facility] the event this information is protected by the Federal Confidentiality of Alcohol and Drug Abuse Patient Records regulations: The Federal rules restrict any use of the information to criminally investigate or prosecute any alcohol or drug abuse patient.[facility] the event this information is protected by the Federal Confidentiality of Alcohol and Drug Abuse Patient Records regulations: The Federal rules restrict any use of the information to criminally investigate or prosecute any alcohol or drug abuse patient.[facility] the event this information is protected by the Federal Confidentiality of Alcohol and Drug Abuse Patient Records regulations: The Federal rules restrict any use of the information to criminally investigate or prosecute any alcohol or drug abuse patient.[facility] the event this information is protected by the Federal Confidentiality of Alcohol and Drug Abuse Patient Records regulations: The Federal rules restrict any use of the information to criminally investigate or prosecute any alcohol or drug abuse patient.[facility] the event this information is protected by the Federal Confidentiality of Alcohol and Drug Abuse Patient Records regulations: The Federal rules restrict any use of the information to criminally investigate or prosecute any alcohol or drug abuse patient.[facility] the event this information is protected by the Federal Confidentiality of Alcohol and Drug Abuse Patient Records regulations: The Federal rules restrict any use of the information to criminally investigate or prosecute any alcohol or drug abuse patient.[facility] the event this information is protected by the Federal Confidentiality of Alcohol and Drug Abuse Patient Records regulations: The Federal rules restrict any use of the information to criminally investigate or prosecute any alcohol or drug abuse patient.[facility] the event this information is protected by the Federal Confidentiality of Alcohol and Drug Abuse Patient Records regulations: The Federal rules restrict any use of the information to criminally investigate or prosecute any alcohol or drug abuse patient.[facility] HospitalIn the event this information is protected by the Federal Confidentiality of Alcohol and Drug Abuse Patient Records regulations: The Federal rules restrict any use of the information to criminally investigate or prosecute any alcohol or drug abuse patient.[facility] HospitalIn the event this information is protected by the Federal Confidentiality of Alcohol and Drug Abuse Patient Records regulations: The Federal rules restrict any use of the information to criminally investigate or prosecute any alcohol or drug abuse patient.[facility] HospitalIn the event this information is protected by the Federal Confidentiality of Alcohol and Drug Abuse Patient Records regulations: The Federal rules restrict any use of the information to criminally investigate or prosecute any alcohol or drug abuse patient.[facility] HospitalIn the event this information is protected by the Federal Confidentiality of Alcohol and Drug Abuse Patient Records regulations: The Federal rules restrict any use of the information to criminally investigate or prosecute any alcohol or drug abuse patient.[facility] HospitalIn the event this information is protected by the Federal Confidentiality of Alcohol and Drug Abuse Patient Records regulations: The Federal rules restrict any use of the information to criminally investigate or prosecute any alcohol or drug abuse patient.[facility] HospitalIn the event this information is protected by the Federal Confidentiality of Alcohol and Drug Abuse Patient Records regulations: The Federal rules restrict any use of the information to criminally investigate or prosecute any alcohol or drug abuse patient.[facility] HospitalIn the event this information is protected by the Federal Confidentiality of Alcohol and Drug Abuse Patient Records regulations: The Federal rules restrict any use of the information to criminally investigate or prosecute any alcohol or drug abuse patient.[facility] HospitalIn the event this information is protected by the Federal Confidentiality of Alcohol and Drug Abuse Patient Records regulations: The Federal rules restrict any use of the information to criminally investigate or prosecute any alcohol or drug abuse patient.[facility] HospitalIn the event this information is protected by the Federal Confidentiality of Alcohol and Drug Abuse Patient Records regulations: The Federal rules restrict any use of the information to criminally investigate or prosecute any alcohol or drug abuse patient.[facility] HospitalIn the event this information is protected by the Federal Confidentiality of Alcohol and Drug Abuse Patient Records regulations: The Federal rules restrict any use of the information to criminally investigate or prosecute any alcohol or drug abuse patient.[facility] HospitalIn the event this information is protected by the Federal Confidentiality of Alcohol and Drug Abuse Patient Records regulations: The Federal rules restrict any use of the information to criminally investigate or prosecute any alcohol or drug abuse patient.[facility] HospitalIn the event this information is protected by the Federal Confidentiality of Alcohol and Drug Abuse Patient Records regulations: The Federal rules restrict any use of the information to criminally investigate or prosecute any alcohol or drug abuse patient.[facility] HospitalIn the event this information is protected by the Federal Confidentiality of Alcohol and Drug Abuse Patient Records regulations: The Federal rules restrict any use of the information to criminally investigate or prosecute any alcohol or drug abuse patient.[facility] HospitalIn the event this information is protected by the Federal Confidentiality of Alcohol and Drug Abuse Patient Records regulations: The Federal rules restrict any use of the information to criminally investigate or prosecute any alcohol or drug abuse patient.[facility] the event this information is protected by the Federal Confidentiality of Alcohol and Drug Abuse Patient Records regulations: The Federal rules restrict any use of the information to criminally investigate or prosecute any alcohol or drug abuse patient.[facility] HospitalIn the event this information is protected by the Federal Confidentiality of Alcohol and Drug Abuse Patient Records regulations: The Federal rules restrict any use of the information to criminally investigate or prosecute any alcohol or drug abuse patient.[facility] HospitalIn the event this information is protected by the Federal Confidentiality of Alcohol and Drug Abuse Patient Records regulations: The Federal rules restrict any use of the information to criminally investigate or prosecute any alcohol or drug abuse patient.[facility] HospitalIn the event this information is protected by the Federal Confidentiality of Alcohol and Drug Abuse Patient Records regulations: The Federal rules restrict any use of the information to criminally investigate or prosecute any alcohol or drug abuse patient.[facility] HospitalIn the event this information is protected by the Federal Confidentiality of Alcohol and Drug Abuse Patient Records regulations: The Federal rules restrict any use of the information to criminally investigate or prosecute any alcohol or drug abuse patient.[facility] HospitalIn the event this information is protected by the Federal Confidentiality of Alcohol and Drug Abuse Patient Records regulations: The Federal rules restrict any use of the information to criminally investigate or prosecute any alcohol or drug abuse patient.[facility] HospitalIn the event this information is protected by the Federal Confidentiality of Alcohol and Drug Abuse Patient Records regulations: The Federal rules restrict any use of the information to criminally investigate or prosecute any alcohol or drug abuse patient.[facility] HospitalIn the event this information is protected by the Federal Confidentiality of Alcohol and Drug Abuse Patient Records regulations: The Federal rules restrict any use of the information to criminally investigate or prosecute any alcohol or drug abuse patient.[facility] HospitalIn the event this information is protected by the Federal Confidentiality of Alcohol and Drug Abuse Patient Records regulations: The Federal rules restrict any use of the information to criminally investigate or prosecute any alcohol or drug abuse patient.[facility] HospitalIn the event this information is protected by the Federal Confidentiality of Alcohol and Drug Abuse Patient Records regulations: The Federal rules restrict any use of the information to criminally investigate or prosecute any alcohol or drug abuse patient.[facility] HospitalIn the event this information is protected by the Federal Confidentiality of Alcohol and Drug Abuse Patient Records regulations: The Federal rules restrict any use of the information to criminally investigate or prosecute any alcohol or drug abuse patient.[facility] HospitalIn the event this information is protected by the Federal Confidentiality of Alcohol and Drug Abuse Patient Records regulations: The Federal rules restrict any use of the information to criminally investigate or prosecute any alcohol or drug abuse patient.[facility] HospitalIn the event this information is protected by the Federal Confidentiality of Alcohol and Drug Abuse Patient Records regulations: The Federal rules restrict any use of the information to criminally investigate or prosecute any alcohol or drug abuse patient.[facility] HospitalIn the event this information is protected by the Federal Confidentiality of Alcohol and Drug Abuse Patient Records regulations: The Federal rules restrict any use of the information to criminally investigate or prosecute any alcohol or drug abuse patient.[facility] HospitalIn the event this information is protected by the Federal Confidentiality of Alcohol and Drug Abuse Patient Records regulations: The Federal rules restrict any use of the information to criminally investigate or prosecute any alcohol or drug abuse patient.[facility] HospitalIn the event this information is protected by the Federal Confidentiality of Alcohol and Drug Abuse Patient Records regulations: The Federal rules restrict any use of the information to criminally investigate or prosecute any alcohol or drug abuse patient.[facility] HospitalIn the event this information is protected by the Federal Confidentiality of Alcohol and Drug Abuse Patient Records regulations: The Federal rules restrict any use of the information to criminally investigate or prosecute any alcohol or drug abuse patient.[facility] HospitalIn the event this information is protected by the Federal Confidentiality of Alcohol and Drug Abuse Patient Records regulations: The Federal rules restrict any use of the information to criminally investigate or prosecute any alcohol or drug abuse patient.[facility] HospitalIn the event this information is protected by the Federal Confidentiality of Alcohol and Drug Abuse Patient Records regulations: The Federal rules restrict any use of the information to criminally investigate or prosecute any alcohol or drug abuse patient.[facility] HospitalIn the event this information is protected by the Federal Confidentiality of Alcohol and Drug Abuse Patient Records regulations: The Federal rules restrict any use of the information to criminally investigate or prosecute any alcohol or drug abuse patient.[facility] HospitalIn the event this information is protected by the Federal Confidentiality of Alcohol and Drug Abuse Patient Records regulations: The Federal rules restrict any use of the information to criminally investigate or prosecute any alcohol or drug abuse patient.[facility] HospitalIn the event this information is protected by the Federal Confidentiality of Alcohol and Drug Abuse Patient Records regulations: The Federal rules restrict any use of the information to criminally investigate or prosecute any alcohol or drug abuse patient.[facility] HospitalIn the event this information is protected by the Federal Confidentiality of Alcohol and Drug Abuse Patient Records regulations: The Federal rules restrict any use of the information to criminally investigate or prosecute any alcohol or drug abuse patient.[facility] HospitalIn the event this information is protected by the Federal Confidentiality of Alcohol and Drug Abuse Patient Records regulations: The Federal rules restrict any use of the information to criminally investigate or prosecute any alcohol or drug abuse patient.[facility] HospitalIn the event this information is protected by the Federal Confidentiality of Alcohol and Drug Abuse Patient Records regulations: The Federal rules restrict any use of the information to criminally investigate or prosecute any alcohol or drug abuse patient.[facility] HospitalIn the event this information is protected by the Federal Confidentiality of Alcohol and Drug Abuse Patient Records regulations: The Federal rules restrict any use of the information to criminally investigate or prosecute any alcohol or drug abuse patient.[facility] HospitalIn the event this information is protected by the Federal Confidentiality of Alcohol and Drug Abuse Patient Records regulations: The Federal rules restrict any use of the information to criminally investigate or prosecute any alcohol or drug abuse patient.[facility] HospitalIn the event this information is protected by the Federal Confidentiality of Alcohol and Drug Abuse Patient Records regulations: The Federal rules restrict any use of the information to criminally investigate or prosecute any alcohol or drug abuse patient.[facility] HospitalIn the event this information is protected by the Federal Confidentiality of Alcohol and Drug Abuse Patient Records regulations: The Federal rules restrict any use of the information to criminally investigate or prosecute any alcohol or drug abuse patient.[facility] HospitalIn the event this information is protected by the Federal Confidentiality of Alcohol and Drug Abuse Patient Records regulations: The Federal rules restrict any use of the information to criminally investigate or prosecute any alcohol or drug abuse patient.[facility] HospitalIn the event this information is protected by the Federal Confidentiality of Alcohol and Drug Abuse Patient Records regulations: The Federal rules restrict any use of the information to criminally investigate or prosecute any alcohol or drug abuse patient.[facility] HospitalIn the event this information is protected by the Federal Confidentiality of Alcohol and Drug Abuse Patient Records regulations: The Federal rules restrict any use of the information to criminally investigate or prosecute any alcohol or drug abuse patient.[facility] Reason for Visit (unrecogniz ed section and content) Reason Comments Chest Pain stomach irritated bu rning thinks this is related meds don't seem to be working-also doing more gardening Follow Up medication Specialty Diagnoses / Procedures Referred By Aure lewis Referred To Contact Family Practice / FAMILY MEDICINE Diagnoses Establish Procedures 4C WELL VISIT Self Ron Duenas MD [address] [place] [address] Referral ID Status Reason Start Date Expiration Date V isits Requested Visits Authorized [id number] Closed Financial Clearance Required - OON Payor Patient Cleared INN/SMCP Payor Auth Obtained 09/17/2021 12/16/2021 1 1 Reason Comments Patient Question Reason Comments Results Reason Comments Erroneous encounter-disregard Reason Onset Date Comments Refill Request 04/10/2022 Reason Onset Date Comments Refill Request 05/19/2022 Reason Onset Date Comments Refill Request 07/04/2022 Reason Comments 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 She wanted to keep mammo/annual on this day. Procedures OFFICE/OUTPATIENT ESTABLISHED HIGH MDM 40-54 MIN EST I ANNUAL PATIENT Pau Cleary MD [address] [place] [address] Agnieszka Melchor APRN.APPEALS BOARD REFEREE [address] [place] [address] Referral ID Status Reason Start Date Expiration Date Visits Re quested Visits Authorized [id number] Closed 08/14/2022 10/18/2022 1 1 Reason Comments Results Reason Comments Established Patient Follow Up Diabetic Foot Care Specialty Diagnoses / Procedures Referred By Aure lewis Referred To Contact Podiatry Diagnoses Type 2 diabetes mellitus with diabetic polyneuropathy, without long-term current use of insulin (HCC) Polyneuropathy Procedures CONSULT TO PODIATRY OFFICE/OUTPATIENT NEW HIGH MDM 60-74 MINUTES Ron Duenas MD [address] [place] [address] Referral ID Status Reason Start Date Expiration Date V isits Requested Visits Authorized [id number] Closed PCP Requested Referral 11/19/2022 11/19/2023 1 1 Reason Comments Follow Up Reason Onset Date Comments ACM JEREMI RN 05/19/2023 Medication Ad herence review per request of payer Reason Comments 6 Month Exam Reason Comments Medication Problem Reason Comments Yearly Exam Reason Comments Arthritis Lupus Reason Comments Leg Pain Bilateral leg crampi ng, radiating up thighs. Stopped HCTZ and cramping improved, but BP increased. Started 1/2 tab, cramping resumed. Reason Comments Cough Cough and congestion - started 08/31 Reason Onset Date Comments 6 Month Exam Immunizations 11/20/2023 Flu vaccination Reason Onset Date Comments Population Health Navigation Outreach 12/10/2023 [facility] Reason Comments Medicare Wellness Exam Reason Comments Follow-up Lupus Osteoarthritis Fibromyalgia Reason Comments Established Patient Follow Up Diabetic Foot Check Reason Onset Date Comments Refill Request 03/29/2024 Reason Onset Date Comments Refill Request 05/10/2024 Reason Comments Abstract Reason Comments Abdominal Pain Patient believes her karla Reason Comments Radiology US Specialty Diagnoses / Procedures Referred By Contac t Referred To Contact US IMAGING Diagnoses Abdominal wall strain, initial encounter Procedures US SOFT TISSUE ABDOMEN US ABDOMINAL REAL TIME W/IMAGE LIMITED Brenda Toth, EDUCATION OFFICER.APPEALS BOARD REFEREE [address] [place] [address] [place] [id number] Referral ID Status Reason Start Date Expiration Date V isits Requested Visits Authorized [id number] Closed Auto-Generate d Referral 06/22/2024 07/21/2025 1 1 Reason Comments Patient Update Reason Comments Knee Injury RIGHT knee x 1 day Reason Onset Date Comments Population Health Navigation Outreach 09/08/2024 BP Reason Comments Well Woman Reason Comments Orders Reason Comments Orders Reason Comments 6 Month Exam ER F/U HTN had pain in jaw and left arm. Brings readings from home today. Reason Comments Results Labs Reason Comments Hypertension 4 week medication fo llow up Reason Onset Date Comments Refill Request 01/10/2025 Reason Comments Lupus Care Teams (unrecognized sec tion and content) Retail Coverage Merchandiser Lead Relationship Specialty Start Date End Date Ron Duenas MD [address] [place], [place] [id number] PCP - General Family Practice 09/17/21 Retail Coverage Merchandiser Lead Relationship Specialty Start Date End Date Ron Duenas MD [address] [place], [place] [address] PCP - General Family Practice 09/17/21 Retail Coverage Merchandiser Lead Relationship Specialty Start Date End Date Ron Duenas MD [facility] [place], [place] [id number] PCP - General Family Practice 09/17/21 Retail Coverage Merchandiser Lead Relationship Specialty Start Date End Date Ron Duenas MD [facility] [place], [place] [id number] PCP - General Family Practice 09/17/21 Retail Coverage Merchandiser Lead Relationship Specialty Start Date End Date Ron Duenas MD [address] [place] [id number] PCP - General Family Practice 09/17/21 Retail Coverage Merchandiser Lead Relationship Specialty Start Date End Date Ron Duenas MD [address] [facility] [place] [address] PCP - General Family Practice 09/17/21 Retail Coverage Merchandiser Lead Relationship Specialty Start Date End Date Ron Duenas MD [address] [facility] [place] [address] PCP - General Family Practice 09/17/21 Retail Coverage Merchandiser Lead Relationship Specialty Start Date End Date Ron Duenas MD [address] [facility] [place] [address] PCP - General Family Practice 09/17/21 Retail Coverage Merchandiser Lead Relationship Specialty Start Date End Date Ron Duenas MD [address] [facility] [place] [address] PCP - General Family Medicine 09/17/21 Retail Coverage Merchandiser Lead Relationship Specialty Start Date End Date Ron Duenas MD [address] [place] [address] PCP - General Family Medicine 09/17/21 Retail Coverage Merchandiser Lead Relationship Specialty Start Date End Date Ron Duenas MD [address] [facility] [place] [address] PCP - General Family Medicine 09/17/21 Team Status: Active Member Role Status Dates Dr. Valentin Arredondo MD Family Provider Active Dr. Ron Duenas MD Primary Care Provider Active Team Status: Inactive Member Role Status Dates Dr. Ron Duenas MD Primary Care Provider, Referring Provider Active Mari Navarro RECOVERY SPECIALIST, RECOVERY SPECIALIST-C Attending Provider Active Team Status: Active Member Role Status Dates Dr. Ron Duenas MD Primary Care Provider, Referring Provider Active Dr. Goran Natarajan DO Attending Provider, Other Prov ider Active Team Status: Inactive Member Role Status Dates Dr. Ron Duenas MD Primary Care Provider Active Dr. Goran Natarajan DO Attending Provider Active Team Status: Inactive Member Role Status Dates Dr. Ron Duenas MD Primary Care Provider Active Mari Navarro RECOVERY SPECIALIST, RECOVERY SPECIALIST-C Attending Provider, [facility] Active Team Status: Inactive Member Role Status Dates Dr. Ron Duenas MD Primary Care Provider Active Mari Navarro RECOVERY SPECIALIST, RECOVERY SPECIALIST-C Attending Provider Active Team Status: Inactive Member Role Status Dates Dr. Ron Duenas MD Primary Care Provider, Referring Provider Active Dr. Goran Natarajan DO Attending Provider Active Team Status: Active Member Role Status Dates Dr. Ron Duenas MD Primary Care Provider Active Mari Navarro RECOVERY SPECIALIST, RECOVERY SPECIALIST-C Attending Provider, Kierra mckoy Provider Active Retail Coverage Merchandiser Lead Relationship Specialty Start Date End Date Ron Duenas MD [address] [place] [address] PCP - General Family Medicine 09/17/21 Team Status: Active Member Role Status Dates Dr. Ron Duenas MD Primary Care Provider Active Mari Navarro RECOVERY SPECIALIST, RECOVERY SPECIALIST-C Attending Provider Active Retail Coverage Merchandiser Lead Relationship Specialty Start Date End Date Ron Duenas MD [address] [place] [address] PCP - General Family Medicine 09/17/21 Retail Coverage Merchandiser Lead Relationship Specialty Start Date End Date Ron Duenas MD [address] [place], [place] [address] PCP - General Family Medicine 09/17/21 Team Status: Inactive Member Role Status Dates Dr. Ron Duenas MD Primary Care Provider, Referring Provider Active NEW WrightC Attending Provider Active Retail Coverage Merchandiser Lead Relationship Specialty Start Date End Date Ron Duenas MD [address] [place] [address] PCP - General Family Medicine 09/17/21 Retail Coverage Merchandiser Lead Relationship Specialty Start Date End Date Ron Duenas MD [address] [place] [address] PCP - General Family Medicine 09/17/21 Retail Coverage Merchandiser Lead Relationship Specialty Start Date End Date Ron Duenas MD [address] [place] [address] PCP - General Family Medicine 09/17/21 Retail Coverage Merchandiser Lead Relationship Specialty Start Date End Date Ron Duenas MD [address] [place] [address] PCP - General Family Medicine 09/17/21 Retail Coverage Merchandiser Lead Relationship Specialty Start Date End Date Ron Duenas MD [address] [place] [address] PCP - General Family Medicine 09/17/21 Retail Coverage Merchandiser Lead Relationship Specialty Start Date End Date Ron Duenas MD [address] [place] [address] PCP - General 02/20/22 Retail Coverage Merchandiser Lead Relationship Specialty Start Date End Date Ron Duenas MD [address] [place] [address] PCP - General Family Medicine 09/17/21 Retail Coverage Merchandiser Lead Relationship Specialty Start Date End Date Ron Duenas MD [address] [place] [address] PCP - General Family Medicine 09/17/21 Retail Coverage Merchandiser Lead Relationship Specialty Start Date End Date Ron Duenas MD [address] [place] [address] PCP - General Family Medicine 09/17/21 Retail Coverage Merchandiser Lead Relationship Specialty Start Date End Date Ron Duenas MD [address] [place] [address] PCP - General Family Medicine 09/17/21 Retail Coverage Merchandiser Lead Relationship Specialty Start Date End Date Ron Duenas MD [address] [place] [address] PCP - General Family Medicine 09/17/21 Team Status: Inactive Member Role Status Dates Dr. Ron Duenas MD Primary Care Provider, Referring Provider Active Dr. Myke Bowers MD Attending Provider Active Team Status: Inactive Member Role Status Dates Dr. Ron Duenas MD Primary Care Provider Active Dr. Myke Bowers MD Attending Provider, Referring P love Active Retail Coverage Merchandiser Lead Relationship Specialty Start Date End Date Ron Duenas MD [address] [place] [address] PCP - General Family Medicine 09/17/21 Retail Coverage Merchandiser Lead Relationship Specialty Start Date End Date Ron Duenas MD [address] [place], [place] [address] PCP - General Family Medicine 09/17/21 Retail Coverage Merchandiser Lead Relationship Specialty Start Date End Date Ron Duenas MD [address] [place] [address] PCP - General 02/20/22 Genie Godinez MD [address] [place] [address] Referring Physician Rheumatology 02/14/24 Retail Coverage Merchandiser Lead Relationship Specialty Start Date End Date Ron Duenas MD [address] [place] [address] PCP - General Family Medicine 09/17/21 Team Status: Inactive Member Role Status Dates Dr. Ron Duenas MD Primary Care Provider Active Dr. Genie Godinez MD Attending Provider Active Retail Coverage Merchandiser Lead Relationship Specialty Start Date End Date Ron Duenas MD [address] [place] [address] PCP - General Family Medicine 09/17/21 Retail Coverage Merchandiser Lead Relationship Specialty Start Date End Date Ron Duenas MD [address] [place] [address] PCP - General Family Medicine 09/17/21 Retail Coverage Merchandiser Lead Relationship Specialty Start Date End Date Ron Duenas MD [address] [place] [address] PCP - General Family Medicine 09/17/21 Retail Coverage Merchandiser Lead Relationship Specialty Start Date End Date Ron Duenas MD [address] [place] [address] PCP - General Family Medicine 09/17/21 Retail Coverage Merchandiser Lead Relationship Specialty Start Date End Date Ron Duenas MD [address] [place] [address] PCP - General Family Medicine 09/17/21 Retail Coverage Merchandiser Lead Relationship Specialty Start Date End Date Ron Duenas MD [address] [place] [address] PCP - General Family Medicine 09/17/21 Retail Coverage Merchandiser Lead Relationship Specialty Start Date End Date Ron Duenas MD [address] [place] [address] PCP - General Family Medicine 09/17/21 Retail Coverage Merchandiser Lead Relationship Specialty Start Date End Date Rno Duenas MD [address] [place], [place] [address] PCP - General Family Medicine 09/17/21 Retail Coverage Merchandiser Lead Relationship Specialty Start Date End Date Ron Duenas MD [address] [place] [address] PCP - General Family Medicine 09/17/21 Retail Coverage Merchandiser Lead Relationship Specialty Start Date End Date Ron Duenas MD [address] [place] [address] PCP - General Family Medicine 09/17/21 Retail Coverage Merchandiser Lead Relationship Specialty Start Date End Date Ron Duenas MD [address] [place] [address] PCP - General Family Medicine 09/17/21 Retail Coverage Merchandiser Lead Relationship Specialty Start Date End Date Ron Duenas MD [address] [place] [address] PCP - General Family Medicine 09/17/21 Retail Coverage Merchandiser Lead Relationship Specialty Start Date End Date Ron Duenas MD [address] [place] [address] PCP - General Family Medicine 09/17/21 Mel Obando APRN.APPEALS BOARD REFEREE [address] [place] [address] Food Cashier Family Medicine 09/26/24 Brenda Toth EDUCATION OFFICER.APPEALS BOARD REFEREE [address] [place] [address] Food Cashier Family Medicine 09/26/24 Retail Coverage Merchandiser Lead Relationship Specialty Start Date End Date Ron Duenas MD [address] [place] [address] PCP - General Family Medicine 09/17/21 Mel Obando APRN.APPEALS BOARD REFEREE [address] [place], [place] [address] Food Cashier Family [facility] 09/26/24 Brenda Toth EDUCATION OFFICER.APPEALS BOARD REFEREE [address] [place] [address] [facility] 09/26/24 Retail Coverage Merchandiser Lead Relationship Specialty Start Date End Date Ron Duenas MD [address] [facility] [id number] PCP - General Family Medicine 09/17/21 Mel Obando APRN.APPEALS BOARD REFEREE [address] [facility] [place] [address] [facility] 09/26/24 Brenda Toth EDUCATION OFFICER.APPEALS BOARD REFEREE [address] [place] [address] [facility] 09/26/24 Retail Coverage Merchandiser Lead Relationship Specialty Start Date End Date Ron Duenas MD [address] [facility] [place] [address] PCP - General Family Medicine 09/17/21 Mel Obando EDUCATION OFFICER.APPEALS BOARD REFEREE [address] [facility] [place] [address] [facility] 09/26/24 Bredna Toth EDUCATION OFFICER.APPEALS BOARD REFEREE [address] [place] [address] [facility] 09/26/24 Retail Coverage Merchandiser Lead Relationship Specialty Start Date End Date Ron Duenas MD [address] [facility] [place] [id number] PCP - General Family Medicine 09/17/21 Mel Obando, EDUCATION OFFICER.APPEALS BOARD REFEREE [address] [place], [place] [address] [facility] 09/26/24 Brenda Toth EDUCATION OFFICER.APPEALS BOARD REFEREE [address] [place], [place] [address] [facility] 09/26/24 Retail Coverage Merchandiser Lead Relationship Specialty Start Date End Date Ron Duenas MD [address] [place], [place] [address] PCP - [facility] 09/17/21 Mel Obando APRN.APPEALS BOARD REFEREE [address] [place], [place] [address] [facility] 09/26/24 Brenda Toth EDUCATION OFFICER.APPEALS BOARD REFEREE [address] [place], [place] [id number] [facility] 09/26/24 Team Status: Active Member Role Status Dates Dr. Ron Duenas MD Primary Care Provider Active Team Status: Inactive Member Role Status Dates Dr. Ron Duenas MD Primary Care Provider Active Start: November 16, 2024 End: November 16, 2024 Dr. Ron Duenas MD Referring Provider Active Start: November 16, 2024 End: November 16, 2024 NEW WrightC Attending Provider Active Start: November 16, 2024 End: November 16, 2024 Team Status: Inactive Member Role Status Dates Dr. Ron Duenas MD Primary Care Provider Active Start: November 17, 2024 End: November 17, 2024 Dr. Iglesia Wright MD Attending Provider Active S tart: November 17, 2024 End: November 17, 2024 Dr. Iglesia Wright MD Emergency Provider Active S tart: November 17, 2024 End: November 17, 2024 Team Status: Inactive Member Role Status Dates Dr. Ron Duenas MD Primary Care Provider Active Start: January 17, 2025 End: January 17, 2025 Dr. Myke Bowers MD Attending Provider Active Start: January 17, 2025 End: January 17, 2025 Dr. Myke Bowers MD Referring Provider Active Start: January 17, 2025 End: January 17, 2025 Retail Coverage Merchandiser Lead Relationship Specialty Start Date End Date Ron Duenas MD [address] [place], [place] [address] PCP - General Family Medicine 09/17/21 Mel Obando APRN.APPEALS BOARD REFEREE [address] [place], [place] [address] Food Cashier [facility] 09/26/24 Brenda Toth, EDUCATION OFFICER.APPEALS BOARD REFEREE [address] [place], [place] [id number] [facility] Team Status: Active Member Role/Relationship Status Dates Dr. Ron Duenas MD Primary Care Provider Active Team Status: Inactive Member Role/Relationship Status Dates Dr. Ron Duenas MD Primary Care Provider Active Start: January 17, 2025 End: January 17, 2025 Dr. Myke Bowers MD Attending Provider Active Start: January 17, 2025 End: January 17, 2025 Dr. Myke Bowers MD Referring Provider Active Start: January 17, 2025 End: January 17, 2025 Team Status: Inactive Member Role/Relationship Status Dates Dr. Ron Duenas MD Primary Care Provider Active Start: February 16, 2025 End: February 16, 2025 Dr. Ron Duenas MD Referring Provider Active Start: February 16, 2025 End: February 16, 2025 Dr. Myke Bowers MD Attending Provider Active Start: February 16, 2025 End: February 16, 2025 Team Status: Inactive Member Role/Relationship Status Dates Dr. Ron Duenas MD Primary Care Provider Active Start: April 10, 2025 End: April 17, 2025 Dr. Myke Bowers MD Attending Provider Active Start: April 10, 2025 End: April 17, 2025 Dr. Myke Bowers MD Referring Provider Active Start: April 10, 2025 End: April 17, 2025 Retail Coverage Merchandiser Lead Relationship Specialty Start Date End Date Ron Duenas MD [address] [place], [place] [address] PCP - General 02/20/22 Genie Godinez MD [address] [facility] [address] [place], [place] [address] Referring Physician Rheumatology 02/14/24 Goals (unrecognized section and content) Goals may be documented in a n alternate sectionGoals may be documented in an alternate sectionGoals may be documented in an alternate sectionGoals may be documented in an alternate sectionGoals may be documented in an alternate sectionGoals may be documented in an alternate sectionGoals may be documented in an alternate sectionGoals may be documented in an alternate sectionGoals may be documented in an alternate sectionGoals may be documented in an alternate section FOR RECORDS PERTAINING TO PATIENTS WHO ARE OR HAVE BEEN ENROLLED IN A CHEMICAL DEPENDENCY/SUBSTANCEABUSE PROGRAM, SOME INFORMATION MAY BE OMITTED. This clinical summary was aggregated from multiple sources. Caution should be exercised in using it in the provision of clinical care. This summary normalizes information from multiple sources, and as a consequence, information in this document may materially change the coding, format and clinical context of patient data. In addition, data may be omitted in some cases. CLINICAL DECISIONS SHOULD BE BASED ON THE PRIMARY CLINICAL RECORDS. [facility]. provides no warranty or guarantee of the accuracy or completeness of information in this document.
[2025-05-01 14:08] LABS: Anti-dsDNA Ab 2 IU/mL (0-9)
== END | disposition home or self-care (01) ==
LOC: BIMLAB 13:11
PROVIDERS: PCP Family Medicine; Visit Provider Internal Medicine
DX: M32.9 Systemic lupus erythematosus, unspecified (principal)
CPT/HCPCS: 36415; 80053; 85025; 85652; 86140; 86160; 86225

== ENCOUNTER 2025-05-16 12:49 | Outpatient (RCR) | payer MEDICARE, SELFPAY | END 2025-05-18 23:59 | LOC: NS 12:49 | PROVIDERS: PCP Family Medicine; Referring Provider Internal Medicine; Visit Provider Internal Medicine | DX: Z71.3 Dietary counseling and surveillance (principal); E11.65 Type 2 diabetes mellitus with hyperglycemia; E66.01 Morbid (severe) obesity due to excess calories; I10 Essential (primary) hypertension; K76.0 Fatty (change of) liver, not elsewhere classified; E78.1 Pure hyperglyceridemia; E78.5 Hyperlipidemia, unspecified; K76.6 Portal hypertension; K31.89 Other diseases of stomach and duodenum; Z68.43 Body mass index [BMI] 50.0-59.9, adult | CPT/HCPCS: 97803 ==

== ENCOUNTER → 2025-05-29 | Outpatient (CLI) | payer MEDICARE, SELFPAY ==
[2025-05-29 11:18] LABS: Hematocrit 45.2 % (37-47); Hemoglobin 14.3 g/dL (12.0-15.0); Immature Granulocytes Count 0.020 X10^3/uL (0.0-0.0); Mean Corp Hgb Conc 31.6 g/dL (32-36); Mean Corpuscular Volume 92.8 fL (81-99); Mean Platelet Vol. 11.0 fl (6.2-12.0); NRBC Flagged by Analyzer 0 % (0-5); Platelet Count 213 K/mm3 (150-450); RBC Distribution Width CV 13.8 % (11.6-14.6); RBC Distribution Width SD 46.8 fl (35.1-43.9); Red Blood Count 4.87 M/mm3 (4.2-5.4); White Blood Count 6.1 K/mm3 (4.4-11.0)
[2025-05-29 11:33] LABS: Prothrombin Time (Protime)PT. 12.4 SECONDS (11.7-14.9)
[2025-05-29 12:08] LABS: AST(SGOT) 18 U/L (<=31); Alanine Aminotransfer ALT/SGPT 18 U/L (<=34); Albumin, Serum 4.1 g/dL (3.4-4.8); Alkaline Phosphatase 61 U/L (35-104); Anion Gap 15 (5-15); BUN 25 mg/dL (4-19); BUN/Creat Ratio 32.3 RATIO (10-20); Calcium,Total 9.6 mg/dL (7.6-11.0); Carbon Dioxide 21.1 mmol/L (21.0-32.0); Chloride 101 mmol/L (98-108); Cholesterol 243 mg/dL (<=200); Globulin 3.0 g/dL (2.2-4.2); Glucose 213 mg/dL (70-99); Low Density Lipoprotein Calc. 133 mg/dL; Potassium 4.4 mmol/L (3.3-5.1); Triglycerides 348 mg/dL; Very Low Density Lipoprotein 70 mg/dL (5-40); cholesterol:hdl ratio screen 5.96
[2025-05-29 12:12] LABS: CRP < 3.00 mg/L (0.0-3.0)
== END | disposition home or self-care (01) ==
LOC: LAB 10:20
PROVIDERS: PCP Family Medicine; Visit Provider Internal Medicine
DX: K76.0 Fatty (change of) liver, not elsewhere classified (principal); K76.6 Portal hypertension; E66.01 Morbid (severe) obesity due to excess calories; Z68.42 Body mass index [BMI] 45.0-49.9, adult; E11.65 Type 2 diabetes mellitus with hyperglycemia; E78.1 Pure hyperglyceridemia; E78.5 Hyperlipidemia, unspecified; K31.89 Other diseases of stomach and duodenum; I10 Essential (primary) hypertension
CPT/HCPCS: 36415; 80053; 80061; 84443; 85025; 85610; 86140

== ENCOUNTER → 2025-07-26 | Outpatient (CLI) | payer MEDICARE, SELFPAY ==
--- NOTE | 2025-07-26 08:46 | US_ITS ---
PROCEDURE: ABD LIMITED W/ ELASTOGRAPHY, 07/26/2025 REASON FOR EXAM: LIVER FIBROSIS COMPARISON: 07/25/2024 TECHNIQUE: Grayscale and color Doppler imaging of the right upper quadrant was performed. Elastography was performed for non-invasive assessment of liver tissue stiffness utilizing a 2 Minutes S-shear wave imaging unit. FINDINGS: Exam limited by soft tissue attenuation. Liver: Grossly unremarkable echotexture. 22.6 cm in length. Gallbladder: Cholecystectomy. Biliary tree: CBD is top-normal in caliber at 6-7 mm. Pancreas: Partially obscured by shadowing bowel gas, grossly unremarkable as visualized. Right kidney: Unremarkable. 13.3 cm in length. Other: No visualized free fluid. Hepatic elastography: Number of measurements: 6. US probe: CA1-7A. EQI median: 3.2 kPa EQI median velocity: 1.01 m/s IQR/Med: 25.4% (kPa) and 13.4% (m/s). If the IQR/Med is IQR/median >30% (for kPa) or >15% in m/s, the variance in the measurements is a large and the accuracy of the measurement may be in question. US/ABD Limited w/ Elastography IMPRESSION: 1. Hepatomegaly with grossly unremarkable hepatic echotexture. Correlate for c linical and laboratory evidence of chronic liver disease. 2. Liver stiffness is 3.2 kPa. Per the below 2020 SRU criteria, this indicates a high probability of being normal. 3. Additional description as above. Assessment is per the Update to the SRU Liver Elastography Consensus Statement (2020) Note that the above assessment of liver fibrosis is vendor-neutral and intended for use in fibrosis related to viral etiologies and non-alcoholic fatty-liver disease (NAFLD); in causes other than viral hepat itis and NAFLD, the cutoff values are currently not well established. In some patients with NAFLD, the cutoff values for cACLD may be lower (7-9 kPa). Note also that in the setting of elevated LFTs, nonfasting or vascular congestion, the stage of lifer fibrosis may be overestimated. Previous SRU reference values: <1.37 m/s (5.7kPa): No to mild fibrosis 1.37 m/s - 2.2 m/s: Moderate to severe fibrosis >2.2 m/s (15kPa): Significant fibrosis / cirrhosis Reading Location: [id number]
== END | disposition home or self-care (01) ==
LOC: US 08:46
PROVIDERS: PCP Family Medicine; Referring Provider Internal Medicine; Visit Provider Internal Medicine
DX: K76.0 Fatty (change of) liver, not elsewhere classified (principal); K76.6 Portal hypertension; E66.01 Morbid (severe) obesity due to excess calories; Z68.42 Body mass index [BMI] 45.0-49.9, adult; E11.65 Type 2 diabetes mellitus with hyperglycemia; E78.1 Pure hyperglyceridemia; E78.5 Hyperlipidemia, unspecified; K31.89 Other diseases of stomach and duodenum; I10 Essential (primary) hypertension
CPT/HCPCS: 76705; 76981